=== PATIENT | male | born 1940 | race Caucasian/White ===

== ENCOUNTER 2016-09-24 22:56 | Emergency (ER) | payer MEDICARE, OTHER ==
[2016-09-24] MEDS ORDERED: hydrALAZINE HCL 20 MG/ML 1 ML VIAL IVP STA (23:22)
--- NOTE | 2016-09-24 23:26 | ED ---
General Adult HPI - General Chief complaint: Recheck/Abnormal Lab/Rx Stated complaint: Blood Pressure/tingling in left hand Time Seen by Provider: 09/24/16 23:00 Source: patient, family, RN notes reviewed Mode of arrival: ambulatory Limitations: no limitations - History of Present Illness Initial comments: This is a 75-year-old male presents emergency Department with a past medical history significant for kidney cancer blood pressure. Patient presents today because he felt as though his blood pressure was up and he took his systolic blood pressure was 190. Patient states when his blood pressure up he feels a little tingly sensation in the tips of his fingers and that's what he got today at his took his pressure. Patient denies any chest pain or palpitation. Patient denies any difficulty breathing or shortness of breath per patient denies any headache patient denies any numbness or weakness. Patient denies any blurred vision. Patient states he's had no abdominal pain patient denies nausea vomiting diarrhea. Patient denies any recent fever chills or cough. - Related Data Home Medications Medication Instructions Recorded Confirmed Aspirin EC [Ecotrin Low Dose] 81 mg PO DAILY 06/04/16 09/24/16 Ensure Complete 1 can PO BID PRN 06/04/16 09/24/16 Pravastatin Sodium [Pravachol] 20 mg PO HS 06/04/16 09/24/16 Tamsulosin HCl [Flomax] 0.4 mg PO HS 06/04/16 09/24/16 Lisinopril [Prinivil] 10 mg PO DAILY 09/24/16 09/24/16 Allergies Allergy/AdvReac Type Severity Reaction Status Date / Time atorvastatin calcium Allergy Unknown Verified 09/24/16 23:03 [From Lipitor] clindamycin Allergy Unknown Verified 09/24/16 23:03 Review of Systems ROS Statement: Those systems with pertinent positive or pertinent negative responses have been documented in the HPI. ROS Other: All systems not noted in ROS Statement are negative. Past Medical History Past Medical History: Hypertension Additional Past Medical History / Comment(s): prostate enlarged, left renal cancer History of Any Multi-Drug Resistant Organisms: None Reported Additional Past Surgical History / Comment(s): dental, left nephrectomy 2016 Past Anesthesia/Blood Transfusion Reactions: No Reported Reaction Past Psychological History: No Psychological Hx Reported Smoking Status: Former smoker Past Alcohol Use History: Occasional Past Drug Use History: None Reported - Past Family History Father Family Medical History: Hypertension, Myocardial Infarction ([place]) Mother Family Medical History: Cancer Additional Family Medical History / Comment(s): breast cancer - throat cancer General Exam Limitations: no limitations Course Vital Signs 09/24/16 09/24/16 22:59 23:55 Temperature 98 F Pulse Rate 71 77 Respiratory 20 18 Rate Blood Pressure 191/88 148/82 O2 Sat by Pulse 98 98 Oximetry Medical Decision Making - Medical Decision Making EKG shows a normal sinus rhythm at 69 bpm. It was 180 QRS is 96 QT interval 398 QTC is 426. Patient's EKG shows no ST segment elevation or depression or T wave abnormalities are noted. - Lab Data Result diagrams: 09/24/16 23:27 09/24/16 23:27 Lab Results 09/24/16 09/24/16 09/24/16 Range/Units 23:27 23:27 23:27 WBC 7.7 (3.8-10.6) k/uL RBC 4.44 (4.30-5.90) m/uL Hgb 12.7 L (13.0-17.5) gm/dL Hct 39.6 (39.0-53.0) % MCV 89.1 (80.0-100.0) fL MCH 28.5 (25.0-35.0) pg MCHC 32.0 (31.0-37.0) g/dL RDW 15.1 (11.5-15.5) % Plt Count 259 (150-450) k/uL Neutrophils % 52 % Lymphocytes % 27 % Monocytes % 9 % Eosinophils % 9 % Basophils % 1 % Neutrophils # 4.0 (1.3-7.7) k/uL Lymphocytes # 2.1 (1.0-4.8) k/uL Monocytes # 0.7 (0-1.0) k/uL Eosinophils # 0.7 (0-0.7) k/uL Basophils # 0.1 (0-0.2) k/uL Sodium 142 (137-145) mmol/L Potassium 4.7 (3.5-5.1) mmol/L Chloride 107 (98-107) mmol/L Carbon Dioxide 26 (22-30) mmol/L Anion Gap 9 mmol/L BUN 26 H (9-20) mg/dL Creatinine 2.20 H (0.66-1.25) mg/dL Est GFR (MDRD) Af Amer 36 (>60 ml/min/1.73 sqM) Est GFR (MDRD) Non-Af 29 (>60 ml/min/1.73 sqM) Glucose 96 (74-99) mg/dL Calcium 9.2 (8.4-10.2) mg/dL Magnesium 2.1 (1.6-2.3) mg/dL Total Bilirubin 0.4 (0.2-1.3) mg/dL AST 19 (17-59) U/L ALT 27 (21-72) U/L Alkaline Phosphatase 99 (38-126) U/L Total Creatine Kinase 69 (55-170) U/L CK-MB (CK-2) 0.9 (0.0-2.4) ng/mL CK-MB (CK-2) Rel Index 1.3 Troponin I <0.012 (0.000-0.034) ng/mL Total Protein 6.6 (6.3-8.2) g/dL Albumin 3.8 (3.5-5.0) g/dL Disposition Clinical Impression: Hypertension, Renal insufficiency Disposition: HOME SELF-CARE Condition: Good Instructions: Hypertension (ED) Referrals: Derrell Cordova DO [Primary Care Provider] - 1-2 days Time of Disposition: 00:27
[2016-09-24 23:37] LABS: Basophils # (A) 0.1 k/uL (0-0.2); Basophils % (A) 1 %; CH 29.8; CHCM 33.6; Eosinophils # (A) 0.7 k/uL (0-0.7); Eosinophils % (A) 9 %; HCT 39.6 % (39.0-53.0); HDW 2.42; HGB 12.7 gm/dL (13.0-17.5); Luc # (Auto) 0.15; Luc % (Auto) 2; Lymphocytes # (A) 2.1 k/uL (1.0-4.8); Lymphocytes % (A) 27 %; MCH 28.5 pg (25.0-35.0); MCV 89.1 fL (80.0-100.0); Mean Platelet Volume 8.5; Monocytes # (A) 0.7 k/uL (0-1.0); Monocytes % (A) 9 %; Neutrophils % (A) 52 %; RBC 4.44 m/uL (4.30-5.90); RDW 15.1 % (11.5-15.5); WBC 7.7 k/uL (3.8-10.6); WBC (Perox) 7.71
[2016-09-24 23:50] LABS: Calcium 9.2 mg/dL (8.4-10.2); Magnesium 2.1 mg/dL (1.6-2.3); Potassium 4.7 mmol/L (3.5-5.1); Total Bilirubin 0.4 mg/dL (0.2-1.3); Total Protein 6.6 g/dL (6.3-8.2)
[2016-09-24 23:56] VITALS: RESP 18
[2016-09-25] LABS: Creatine Kinase 69 U/L (55-170)
[2016-09-25 00:14] LABS: Creatine Kinase MB 0.9 ng/mL (0.0-2.4); Troponin I <0.012 ng/mL (0.000-0.034)
[2016-09-25] MEDS ORDERED: hydrALAZINE HCL 20 MG/ML 1 ML VIAL IVP STA (00:29)
[2016-09-25 00:39] VITALS: BP 148/82; PULSE 87; TEMP 98
== END 2016-09-25 00:38 | disposition home or self-care (01) ==
LOC: EC 22:56
DX: I10 Essential (primary) hypertension (principal); N28.9 Disorder of kidney and ureter, unspecified; N40.0 Benign prostatic hyperplasia without lower urinary tract symptoms; Z88.1 Allergy status to other antibiotic agents; Z88.8 Allergy status to other drugs, medicaments and biological substances; Z90.5 Acquired absence of kidney; Z79.82 Long term (current) use of aspirin; Z87.891 Personal history of nicotine dependence; Z85.528 Personal history of other malignant neoplasm of kidney; Z79.899 Other long term (current) drug therapy
CPT/HCPCS: 99283; 96374; 96376; 36415; 93005; 80053; 82550; 82553; 83735; 84484; 85025; J0360 ×2

== ENCOUNTER 2016-10-06 20:26 | Emergency (ER) | payer MEDICARE, OTHER ==
[2016-10-06 20:48] VITALS: TEMP 98.1
[2016-10-06 21:24] LABS: Basophils % (A) 1 %; CH 29.1; CHCM 33.4; Eosinophils # (A) 0.5 k/uL (0-0.7); Eosinophils % (A) 9 %; HCT 40.4 % (39.0-53.0); HDW 2.34; HGB 13.4 gm/dL (13.0-17.5); Luc # (Auto) 0.22; Luc % (Auto) 4; Lymphocytes # (A) 1.2 k/uL (1.0-4.8); Lymphocytes % (A) 23 %; MCHC 33.1 g/dL (31.0-37.0); MCV 87.6 fL (80.0-100.0); Mean Platelet Volume 7.9; Monocytes # (A) 0.7 k/uL (0-1.0); Monocytes % (A) 13 %; Neutrophils # (A) 2.8 k/uL (1.3-7.7); Neutrophils % (A) 51 %; RBC 4.61 m/uL (4.30-5.90); RDW 14.6 % (11.5-15.5); WBC 5.5 k/uL (3.8-10.6); WBC (Perox) 5.84
[2016-10-06 21:33] LABS: Partial Thromboplastin Time 26.1 sec (22.0-30.0); Prothrombin Time 10.2 sec (9.0-12.0)
[2016-10-06 21:35] LABS: Calcium 9.4 mg/dL (8.4-10.2); Magnesium 2.1 mg/dL (1.6-2.3); Potassium 4.5 mmol/L (3.5-5.1); Total Bilirubin 0.4 mg/dL (0.2-1.3); Total Protein 7.1 g/dL (6.3-8.2)
--- NOTE | 2016-10-06 21:39 | XR ---
EXAMINATION TYPE: XR chest 1V portable DATE OF EXAM: 10/06/2016 9:24 PM COMPARISON: June 06, 2016 HISTORY: pain TECHNIQUE: Single frontal view of the chest is obtained. FINDINGS: EKG noted. There is no focal air space opacity, pleural effusion, or pneumothorax seen. T he cardiac silhouette size is within normal limits. The osseous structures are intact. IMPRESSION: No acute process.
[2016-10-06 21:46] LABS: Creatine Kinase 40 U/L (55-170)
[2016-10-06 22:00] LABS: Creatine Kinase MB 0.9 ng/mL (0.0-2.4); Troponin I <0.012 ng/mL (0.000-0.034)
[2016-10-06] MEDS ORDERED: cloNIDine HCL 0.1 MG TAB PO STA (22:04)
[2016-10-06 22:09] VITALS: RESP 16
--- NOTE | 2016-10-06 22:35 | ED ---
General Adult HPI - General Chief complaint: Chest Pain Stated complaint: BP High 187/81 Time Seen by Provider: 10/06/16 21:06 Source: patient, RN notes reviewed Mode of arrival: ambulatory Limitations: no limitations - History of Present Illness Initial comments: This patient is a 75-year-old man who presents because his blood pressure has been higher than usual. The patient states that he has been routinely taking his blood pressure at home, and that this evening the blood pressure was greater than 160. The patient states that over the past few weeks his blood pressure has been trending higher, and his physician had been talking about increasing his lisinopril dosing. The patient is denying any symptoms. He has not been having chest pain. No palpitations, lightheadedness, or syncope, no dyspnea or diaphoresis. The patient is not having nausea, vomiting, abdominal pain or change in bowel movements. Patient has not noted any change in urination. He states that he has been compliant with his lisinopril. Patient denies excessive drinking, he did have one beer with dinner on Monday. -: hour(s) - Related Data Home Medications Medication Instructions Recorded Confirmed Aspirin EC [Ecotrin Low Dose] 81 mg PO HS 06/04/16 10/06/16 Ensure Complete 1 can PO BID PRN 06/04/16 10/06/16 Pravastatin Sodium [Pravachol] 20 mg PO HS 06/04/16 10/06/16 Tamsulosin HCl [Flomax] 0.4 mg PO HS 06/04/16 10/06/16 Lisinopril [Prinivil] 10 mg PO HS 09/24/16 10/06/16 Ascorbic Acid [Vitamin C] 2,000 mg PO HS PRN 10/06/16 10/06/16 Previous Rx's Medication Instructions Recorded Hydrochlorothiazide [Hydrodiuril] 25 mg PO DAILY #14 tab 10/06/16 Allergies Allergy/AdvReac Type Severity Reaction Status Date / Time atorvastatin calcium Allergy Unknown Verified 10/06/16 21:35 [From Lipitor] clindamycin Allergy Unknown Verified 10/06/16 21:35 Review of Systems ROS Statement: Those systems with pertinent positive or pertinent negative responses have been documented in the HPI. ROS Other: All systems not noted in ROS Statement are negative. Constitutional: Denies: fever, chills Eyes: Denies: vision change Respiratory: Denies: cough, dyspnea Cardiovascular: Denies: chest pain, palpitations, dyspnea on exertion, edema, syncope Gastrointestinal: Denies: abdominal pain, nausea, vomiting Genitourinary: Denies: dysuria, hematuria Musculoskeletal: Denies: back pain Skin: Denies: rash Neurological: Denies: headache, weakness, numbness Past Medical History Past Medical History: Hypertension Additional Past Medical History / Comment(s): prostate enlarged, left renal cancer History of Any Multi-Drug Resistant Organisms: None Reported Additional Past Surgical History / Comment(s): dental, left nephrectomy 2016 Past Anesthesia/Blood Transfusion Reactions: No Reported Reaction Past Psychological History: No Psychological Hx Reported Smoking Status: Former smoker Past Alcohol Use History: Occasional Past Drug Use History: Marijuana - Past Family History Father Family Medical History: Hypertension, Myocardial Infarction ([place]) Mother Family Medical History: Cancer Additional Family Medical History / Comment(s): breast cancer - throat cancer General Exam Limitations: no limitations General appearance: alert, in no apparent distress Head exam: Present: atraumatic, normocephalic Eye exam: Present: normal appearance. Absent: scleral icterus, conjunctival injection Neck exam: Present: normal inspection Respiratory exam: Present: normal lung sounds bilaterally. Absent: respiratory distress, wheezes, rales, rhonchi, stridor Cardiovascular Exam: Present: regular rate, normal rhythm, normal heart sounds. Absent: systolic murmur, diastolic murmur, rubs, gallop GI/Abdominal exam: Present: soft. Absent: distended, tenderness, guarding, mass Extremities exam: Present: normal inspection, normal capillary refill. Absent: pedal edema, calf tenderness Back exam: Present: normal inspection. Absent: CVA tenderness (R), CVA tenderness (L) Neurological exam: Present: alert Skin exam: Present: warm, dry, intact, normal color. Absent: rash Course Vital Signs 10/06/16 10/06/16 10/06/16 20:44 21:47 22:38 Temperature 98.1 F Pulse Rate 82 73 67 Respiratory 18 16 16 Rate Blood Pressure 200/88 187/96 177/85 O2 Sat by Pulse 98 100 98 Oximetry EKG Findings - EKG Results: EKG: interpreted by ERMD, WNL, sinus rhythm (Rate 70 bpm), normal axis, normal QRS, normal ST/T, no acute changes - [place], Pacemaker, Normal: Normal tracing: normal tracing Medical Decision Making - Medical Decision Making In further discussions with the patient, he stated that he had previously taken a "water pill", and had excellent relief of blood pressure with this. In light of this, patient was doing prescription for hydrochlorothiazide, he states he may try this one morning, instead of his lisinopril to see if that helps with his blood pressure. He was warned that he would need to have his electrolytes checked if starting water pill. He is going to follow-up. - Lab Data Result diagrams: 10/06/16 21:13 10/06/16 21:13 Lab Results 10/06/16 10/06/16 10/06/16 Range/Units 21:13 21: 21:13 WBC 5.5 (3.8-10.6) k/uL RBC 4.61 (4.30-5.90) m/uL Hgb 13.4 (13.0-17.5) gm/dL Hct 40.4 (39.0-53.0) % MCV 87.6 (80.0-100.0) fL MCH 29.0 (25.0-35.0) pg MCHC 33.1 (31.0-37.0) g/dL RDW 14.6 (11.5-15.5) % Plt Count 272 (150-450) k/uL Neutrophils % 51 % Lymphocytes % 23 % Monocytes % 13 % Eosinophils % 9 % Basophils % 1 % Neutrophils # 2.8 (1.3-7.7) k/uL Lymphocytes # 1.2 (1.0-4.8) k/uL Monocytes # 0.7 (0-1.0) k/uL Eosinophils # 0.5 (0-0.7) k/uL Basophils # 0.0 (0-0.2) k/uL PT (9.0-12.0) sec INR (<1.1) APTT (22.0-30.0) sec Sodium 141 (137-145) mmol/L Potassium 4.5 (3.5-5.1) mmol/L Chloride 106 (98-107) mmol/L Carbon Dioxide 25 (22-30) mmol/L Anion Gap 10 mmol/L BUN 28 H (9-20) mg/dL Creatinine 1.57 H (0.66-1.25) mg/dL Est GFR (MDRD) Af Amer 53 (>60 ml/min/1.73 sqM) Est GFR (MDRD) Non-Af 43 (>60 ml/min/1.73 sqM) Glucose 91 (74-99) mg/dL Calcium 9.4 (8.4-10.2) mg/dL Magnesium 2.1 (1.6-2.3) mg/dL Total Bilirubin 0.4 (0.2-1.3) mg/dL AST 22 (17-59) U/L ALT 32 (21-72) U/L Alkaline Phosphatase 109 (38-126) U/L Total Creatine Kinase 40 L (55-170) U/L CK-MB (CK-2) 0.9 (0.0-2.4) ng/mL CK-MB (CK-2) Rel Index 2.3 Troponin I <0.012 (0.000-0.034) ng/mL Total Protein 7.1 (6.3-8.2) g/dL Albumin 3.9 (3.5-5.0) g/dL 10/06/16 Range/Units 21:13 WBC (3.8-10.6) k/uL RBC (4.30-5.90) m/uL Hgb (13.0-17.5) gm/dL Hct (39.0-53.0) % MCV (80.0-100.0) fL MCH (25.0-35.0) pg MCHC (31.0-37.0) g/dL RDW (11.5-15.5) % Plt Count (150-450) k/uL Neutrophils % % Lymphocytes % % Monocytes % % Eosinophils % % Basophils % % Neutrophils # (1.3-7.7) k/uL Lymphocytes # (1.0-4.8) k/uL Monocytes # (0-1.0) k/uL Eosinophils # (0-0.7) k/uL Basophils # (0-0.2) k/uL PT 10.2 (9.0-12.0) sec INR 1.0 (<1.1) APTT 26.1 (22.0-30.0) sec Sodium (137-145) mmol/L Potassium (3.5-5.1) mmol/L Chloride (98-107) mmol/L Carbon Dioxide (22-30) mmol/L Anion Gap mmol/L BUN (9-20) mg/dL Creatinine (0.66-1.25) mg/dL Est GFR (MDRD) Af Amer (>60 ml/min/1.73 sqM) Est GFR (MDRD) Non-Af (>60 ml/min/1.73 sqM) Glucose (74-99) mg/dL Calcium (8.4-10.2) mg/dL Magnesium (1.6-2.3) mg/dL Total Bilirubin (0.2-1.3) mg/dL AST (17-59) U/L ALT (21-72) U/L Alkaline Phosphatase (38-126) U/L Total Creatine Kinase (55-170) U/L CK-MB (CK-2) (0.0-2.4) ng/mL CK-MB (CK-2) Rel Index Troponin I (0.000-0.034) ng/mL Total Protein (6.3-8.2) g/dL Albumin (3.5-5.0) g/dL Disposition Clinical Impression: Hypertension Disposition: HOME SELF-CARE Condition: Fair Instructions: Hypertension (ED) Prescriptions: Hydrochlorothiazide [Hydrodiuril] 25 mg PO DAILY #14 tab Referrals: Derrell Cordova DO [Primary Care Provider] - 1-2 days
[2016-10-06 23:45] VITALS: BP 157/84; PULSE 71
== END 2016-10-06 23:45 | disposition home or self-care (01) ==
LOC: EC 20:26
DX: I10 Essential (primary) hypertension (principal); N40.0 Benign prostatic hyperplasia without lower urinary tract symptoms; Z85.528 Personal history of other malignant neoplasm of kidney; Z79.82 Long term (current) use of aspirin; Z79.899 Other long term (current) drug therapy; Z88.1 Allergy status to other antibiotic agents; Z88.8 Allergy status to other drugs, medicaments and biological substances
CPT/HCPCS: 36415; 71010; 80053; 82550; 82553; 83735; 84484; 85025; 85610; 85730; 93005; 99285

== ENCOUNTER 2016-10-08 10:06 | Emergency (ER) | payer MEDICARE, OTHER ==
[2016-10-08] MEDS ORDERED: ACETAMINOPHEN TAB 325 MG TAB PO STA (13:17)
--- NOTE | 2016-10-08 13:20 | ED ---
Recheck HPI - General Chief Complaint: Recheck/Abnormal Lab/Rx Stated Complaint: HIGH BLOOD PRESSURE Time Seen by Provider: 10/08/16 12:36 Source: patient, RN notes reviewed Mode of arrival: wheelchair Limitations: no limitations - History of Present Illness Initial Comments: Patient is a 76-year-old male presents emergency room for evaluation of high blood pressure. Patient states he was here on Monday for high blood pressure. Patient states they doubled his lisinopril and sent him home on hydrochlorothiazide. Patient states his blood pressure has been normal this past week. Patient states this morning he took his blood pressure and it was 170/79. Patient states this concerned him so he decided to come and be evaluated. Patient also complaining of cough and congestion. Patient states he 's had cough and congestion for the past 4 days. Patient denies receiving his influenza vaccine this year. Patient states had a productive cough and nasal congestion. Patient states been taking Tylenol for his fevers. Patient does have a fever on arrival today of 100.8F. Patient denies any nausea or vomiting. Patient denies chest pain or shortness of breath. Patient denies abdominal pain. Patient denies ear pain or throat pain. - Related Data Home Medications Medication Instructions Recorded Confirmed Aspirin EC [Ecotrin Low Dose] 81 mg PO HS 06/04/16 10/08/16 Ensure Complete 1 can PO BID PRN 06/04/16 10/08/16 Pravastatin Sodium [Pravachol] 20 mg PO HS 06/04/16 10/08/16 Tamsulosin HCl [Flomax] 0.4 mg PO HS 06/04/16 10/08/16 Lisinopril [Prinivil] 20 mg PO HS 09/24/16 10/08/16 Previous Rx's Medication Instructions Recorded Hydrochlorothiazide [Hydrodiuril] 25 mg PO DAILY #14 tab 10/06/16 Allergies Allergy/AdvReac Type Severity Reaction Status Date / Time atorvastatin calcium Allergy Unknown Verified 10/08/16 13:40 [From Lipitor] clindamycin Allergy Unknown Verified 10/08/16 13:40 Review of Systems ROS Statement: Those systems with pertinent positive or pertinent negative responses have been documented in the HPI. ROS Other: All systems not noted in ROS Statement are negative. Past Medical History Past Medical History: Hypertension Additional Past Medical History / Comment(s): prostate enlarged, left renal cancer History of Any Multi-Drug Resistant Organisms: None Reported Additional Past Surgical History / Comment(s): dental, left nephrectomy 2016 Past Anesthesia/Blood Transfusion Reactions: No Reported Reaction Past Psychological History: No Psychological Hx Reported Smoking Status: Former smoker Past Alcohol Use History: Occasional Past Drug Use History: Marijuana - Past Family History Father Family Medical History: Hypertension, Myocardial Infarction ([place]) Mother Family Medical History: Cancer Additional Family Medical History / Comment(s): breast cancer - throat cancer General Exam - General Exam Comments Initial Comments: Sitting in exam room in no acute distress. Limitations: no limitations General appearance: alert, in no apparent distress Head exam: Present: atraumatic, normocephalic, normal inspection Eye exam: Present: normal appearance ENT exam: Present: normal exam, normal oropharynx, mucous membranes moist, TM's normal bilaterally, normal external ear exam Neck exam: Present: normal inspection, full ROM. Absent: tenderness, lymphadenopathy Respiratory exam: Present: normal lung sounds bilaterally. Absent: respiratory distress Cardiovascular Exam: Present: regular rate, normal rhythm, normal heart sounds GI/Abdominal exam: Present: soft, normal bowel sounds. Absent: distended, tenderness, guarding, rebound, rigid Extremities exam: Present: normal inspection Back exam: Present: normal inspection Neurological exam: Present: alert, oriented X3, CN II-XII intact, normal gait Psychiatric exam: Present: normal affect, normal mood Skin exam: Present: warm, dry, intact, normal color. Absent: rash Course Vital Signs 10/08/16 10/08/16 10:55 14:51 Temperature 100.8 F H 97.8 F Pulse Rate 89 80 Respiratory 20 16 Rate Blood Pressure 133/74 133/77 O2 Sat by Pulse 96 95 Oximetry Medical Decision Making - Medical Decision Making Patient is a 76-year-old male presents emergency room for evaluation of blood pressure. Patient also complaining of cough and congestion 4 days. Chest x- ray shows no acute findings. Influenza negative. Patient's blood pressure within normal limits. Advised patient to continue taking medications as prescribed and to follow-up with his primary care provider on Monday. Patient states he understands everything that was discussed with him. Return parameters discussed. Case discussed with Dr. Martínez. - Lab Data Lab Results 10/08/16 Range/Units 13:25 Influenza Type A RNA Not Detected (Not Detectd) Influenza Type B (PCR) Not Detected (Not Detectd) - Radiology Data Radiology results: report reviewed, image reviewed Disposition Clinical Impression: Blood pressure check, Upper respiratory infection Disposition: HOME SELF-CARE Condition: Good Instructions: Upper Respiratory Infection (ED) Additional Instructions: Continue with at home medications. Drink plenty of fluids. Take Tylenol every 4-6 hours for fever/discomfort. Please follow up with primary care provider on Monday for reevaluation. If any new symptom arises or symptoms worsen, return to ER as soon as possible. Referrals: Derrell Cordova DO [Primary Care Provider] - 1-2 days Time of Disposition: 14:49
--- NOTE | 2016-10-08 14:06 | XR ---
EXAMINATION TYPE: XR chest 2V DATE OF EXAM: 10/08/2016 1:30 PM COMPARISON: 10/06/2016 INDICATION: Cough and congestion TECHNIQUE: Frontal and lateral views of the chest are obtained. FINDINGS: The heart size is normal. The pulmonary vasculature is normal. The lungs are clear. IMPRESSION: 1. No acute pulmonary process.
[2016-10-08 14:53] VITALS: BP 133/77; PULSE 80; RESP 16; TEMP 97.8
== END 2016-10-08 14:59 | disposition home or self-care (01) ==
LOC: EC 10:06
DX: Z01.30 Encounter for examination of blood pressure without abnormal findings (principal); J06.9 Acute upper respiratory infection, unspecified; N40.0 Benign prostatic hyperplasia without lower urinary tract symptoms; I10 Essential (primary) hypertension; Z79.82 Long term (current) use of aspirin; Z79.899 Other long term (current) drug therapy; Z88.1 Allergy status to other antibiotic agents; Z88.8 Allergy status to other drugs, medicaments and biological substances; Z85.528 Personal history of other malignant neoplasm of kidney; Z87.891 Personal history of nicotine dependence
CPT/HCPCS: 71020; 87502; 93005; 99284

== ENCOUNTER 2016-10-10 10:37 | Observation (INO) | payer MEDICARE, OTHER ==
[2016-10-10] MEDS ORDERED: SODIUM CHLORIDE 0.9% 1,000 ML IV STA (10:55)
[2016-10-10] MEDS ORDERED: SODIUM CHLORIDE 0.9% 500 ML IV STA (10:55)
--- NOTE | 2016-10-10 10:56 | ED ---
General Adult HPI - General Chief complaint: Chest Pain Stated complaint: HTN Time Seen by Provider: 10/10/16 10:44 Source: patient, RN notes reviewed, old records reviewed Mode of arrival: wheelchair Limitations: no limitations - History of Present Illness Initial comments: This is a 76-year-old male ER for evaluation of elevated blood pressure, paresthesias left arm numbness and tingling and overall not feeling well shortness of breath. Patient does have history of high blood pressure, and has been in the ER twice in the last 4 days for evaluation of similar symptoms. Patient states he has had cough congestion and shortness of breath no help, feeling weak and dizzy with tingling. Numbness in his left arm no exacerbating symptoms, symptoms have been pretty consistent but not getting any better. - Related Data Home Medications Medication Instructions Recorded Confirmed Aspirin EC [Ecotrin Low Dose] 81 mg PO HS 06/04/16 10/10/16 Ensure Complete 1 can PO BID PRN 06/04/16 10/10/16 Pravastatin Sodium [Pravachol] 20 mg PO HS 06/04/16 10/10/16 Tamsulosin HCl [Flomax] 0.4 mg PO HS 06/04/16 10/10/16 Lisinopril [Prinivil] 20 mg PO HS 09/24/16 10/10/16 HYDROcodone/APAP 10-325MG [[place] 1 tab PO Q6H PRN 10/10/16 10/10/16 10-325] Hydrochlorothiazide [Hydrodiuril] 25 mg PO HS 10/10/16 10/10/16 Allergies Allergy/AdvReac Type Severity Reaction Status Date / Time atorvastatin calcium Allergy Unknown Verified 10/10/16 11:08 [From Lipitor] clindamycin Allergy Unknown Verified 10/10/16 11:08 Review of Systems ROS Statement: Those systems with pertinent positive or pertinent negative responses have been documented in the HPI. ROS Other: All systems not noted in ROS Statement are negative. Past Medical History Past Medical History: Cancer, Hypertension Additional Past Medical History / Comment(s): prostate enlarged, left renal cancer History of Any Multi-Drug Resistant Organisms: None Reported Additional Past Surgical History / Comment(s): dental, left nephrectomy 2016 Past Anesthesia/Blood Transfusion Reactions: No Reported Reaction Past Psychological History: No Psychological Hx Reported Smoking Status: Former smoker Past Alcohol Use History: Occasional Past Drug Use History: Marijuana - Past Family History Father Family Medical History: Hypertension, Myocardial Infarction ([place]) Mother Family Medical History: Cancer Additional Family Medical History / Comment(s): breast cancer - throat cancer General Exam Limitations: no limitations General appearance: alert, in no apparent distress, anxious Head exam: Present: atraumatic, normocephalic, normal inspection Eye exam: Present: normal appearance, PERRL, EOMI. Absent: scleral icterus, conjunctival injection, periorbital swelling ENT exam: Present: normal exam, mucous membranes moist Neck exam: Present: normal inspection. Absent: tenderness, meningismus, lymphadenopathy Respiratory exam: Present: normal lung sounds bilaterally. Absent: respiratory distress, wheezes, rales, rhonchi, stridor Cardiovascular Exam: Present: regular rate, normal rhythm, normal heart sounds. Absent: systolic murmur, diastolic murmur, rubs, gallop, clicks GI/Abdominal exam: Present: soft, normal bowel sounds. Absent: distended, tenderness, guarding, rebound, rigid Extremities exam: Present: normal inspection, full ROM, normal capillary refill. Absent: tenderness, pedal edema, joint swelling, calf tenderness Back exam: Present: normal inspection Neurological exam: Present: alert, oriented X3, CN II-XII intact Psychiatric exam: Present: normal affect, normal mood Skin exam: Present: warm, dry, intact, normal color. Absent: rash Course Vital Signs 10/10/16 10/10/16 10:50 11:02 Temperature 97.6 F Pulse Rate 71 Respiratory 16 18 Rate Blood Pressure 129/83 O2 Sat by Pulse 98 Oximetry - Reevaluation(s) Reevaluation #1: 10/10/16 12:04 Medical records including prior ER visits are reviewed EKG Findings - EKG Comments: EKG Findings:: EKG shows normal sinus rhythm rate of 71, MD 162, QRS 94, QTC 406 Medical Decision Making - Medical Decision Making 76-year-old ER for evaluation of chest pain dizziness lightheadedness left arm weakness, history of high blood pressure and heart disease. Patient will be admitted for cardiac observation, initial EKG shows no ST elevation troponin laboratory is normal - Lab Data Result diagrams: 10/10/16 11:18 Lab Results 10/10/16 10/10/16 10/10/16 Range/Units 11:18 11:18 11:18 PT 10.4 (9.0-12.0) sec INR 1.0 (<1.1) APTT 25.8 (22.0-30.0) sec Sodium 137 (137-145) mmol/L Potassium 4.2 (3.5-5.1) mmol/L Chloride 102 (98-107) mmol/L Carbon Dioxide 23 (22-30) mmol/L Anion Gap 12 mmol/L BUN 22 H (9-20) mg/dL Creatinine 1.34 H (0.66-1.25) mg/dL Est GFR (MDRD) Af Amer >60 (>60 ml/min/1.73 sqM) Est GFR (MDRD) Non-Af 52 (>60 ml/min/1.73 sqM) Glucose 111 H (74-99) mg/dL Calcium 9.5 (8.4-10.2) mg/dL Phosphorus 3.8 (2.5-4.5) mg/dL Magnesium 1.8 (1.6-2.3) mg/dL Total Bilirubin 0.4 (0.2-1.3) mg/dL AST 22 (17-59) U/L ALT 30 (21-72) U/L Alkaline Phosphatase 110 (38-126) U/L Total Creatine Kinase 34 L (55-170) U/L Total Protein 7.5 (6.3-8.2) g/dL Albumin 4.0 (3.5-5.0) g/dL - Radiology Data Radiology results: report reviewed (Chest x-ray 2 views negative for acute disease), image reviewed Critical Care Time Critical Care Time: Yes Total Critical Care Time: 31 Disposition Clinical Impression: Chest pain Disposition: ADMITTED IP TO THIS [facility] Condition: Undetermined
[2016-10-10] MEDS ORDERED: HEPARIN SODIUM,PORCINE 5,000 UNIT/ML 1 ML VIAL IV ONE (11:31)
[2016-10-10] MEDS ORDERED: HEPARIN SODIUM,PORCINE 5,000 UNIT/ML 1 ML VIAL IV PRN (11:31)
[2016-10-10] MEDS ORDERED: NITROGLYCERIN SL TABS 0.4 MG TAB SUBLINGUAL PRN (11:31)
[2016-10-10] MEDS ORDERED: ASPIRIN 81 MG CHEW PO STA (11:31)
--- NOTE | 2016-10-10 11:47 | XR ---
EXAMINATION TYPE: XR chest 2V DATE OF EXAM: 10/10/2016 11:39 AM COMPARISON: 10/08/2016 HISTORY: Shortness of breath TECHNIQUE: Frontal and lateral views of the chest are obtained. FINDINGS: Scattered senescent parenchymal changes noted. Hyperinflation compatible with COPD. No evidence for infiltrate. No evidence for atelectasis. Heart size is stable. Mediastinal structures are stable and grossly unremarkable. No evidence for hilar prominence. Degenerative changes dorsal spine. IMPRESSION: 1. No evidence for acute pulmonary disease.
[2016-10-10 11:49] LABS: Partial Thromboplastin Time 25.8 sec (22.0-30.0); Prothrombin Time 10.4 sec (9.0-12.0)
[2016-10-10 11:53] LABS: ALT 30 U/L (21-72); AST 22 U/L (17-59); Alkaline Phosphatase 110 U/L (38-126); Anion Gap 12 mmol/L; Blood Urea Nitrogen 22 mg/dL (9-20); Calcium 9.5 mg/dL (8.4-10.2); Carbon Dioxide 23 mmol/L (22-30); Chloride 102 mmol/L (98-107); Creatine Kinase 34 U/L (55-170); Glucose 111 mg/dL (74-99); Magnesium 1.8 mg/dL (1.6-2.3); Non-African American GFR(MDRD) 52 (>60 ml/min/1.73 sqM); Phosphorous 3.8 mg/dL (2.5-4.5); Potassium 4.2 mmol/L (3.5-5.1); Sodium 137 mmol/L (137-145); Total Bilirubin 0.4 mg/dL (0.2-1.3); Total Protein 7.5 g/dL (6.3-8.2)
[2016-10-10 11:56] LABS: Basophils % (A) 1 %; CH 29.3; CHCM 34.2; Eosinophils # (A) 0.2 k/uL (0-0.7); Eosinophils % (A) 6 %; HCT 44.4 % (39.0-53.0); HDW 2.41; HGB 15.1 gm/dL (13.0-17.5); Luc # (Auto) 0.17; Luc % (Auto) 4; Lymphocytes # (A) 1.3 k/uL (1.0-4.8); Lymphocytes % (A) 32 %; MCH 29.3 pg (25.0-35.0); MCV 86.1 fL (80.0-100.0); Monocytes # (A) 0.3 k/uL (0-1.0); Monocytes % (A) 8 %; Neutrophils # (A) 2.1 k/uL (1.3-7.7); Neutrophils % (A) 51 %; RBC 5.16 m/uL (4.30-5.90); RDW 14.4 % (11.5-15.5); WBC 4.2 k/uL (3.8-10.6); WBC (Perox) 4.31
[2016-10-10 12:07] LABS: Creatine Kinase MB 0.6 ng/mL (0.0-2.4); Troponin I <0.012 ng/mL (0.000-0.034)
[2016-10-10] MEDS: HEPARIN SODIUM,PORCINE/D5W PMX 25,000 UNIT in DEXTROSE/WATER 1 500ML.BAG IV SCH (13:34)
[2016-10-10 16:10] LABS: Appearance,Urine Clear (Clear); Bilirubin,Urine Negative (Negative); Glucose,Urine (UA) Negative (Negative); Ketones,Urine Negative (Negative); Leukocyte Esterase,Urine Negative (Negative); Nitrite,Urine Negative (Negative); Protein,Urine Negative (Negative); Specific Gravity,Urine 1.012 (1.001-1.035); UA Billing (MACRO vs. MICRO) CHEM; Urobilinogen,Urine <2.0 mg/dL (<2.0)
[2016-10-10 18:24] LABS: Creatine Kinase 31 U/L (55-170)
[2016-10-10 18:35] LABS: Creatine Kinase MB 0.6 ng/mL (0.0-2.4); Troponin I <0.012 ng/mL (0.000-0.034)
[2016-10-10] MEDS ORDERED: ENSURE COMPLETE PO PRN (21:51)
[2016-10-10] MEDS: SODIUM CHLORIDE 0.9% 1,000 ML IV SCH ×2 (22:11→22:15)
[2016-10-10] MEDS: TAMSULOSIN 0.4 MG CAP.ER.24H PO SCH (22:20)
[2016-10-10] MEDS: PRAVASTATIN SODIUM 20 MG TAB PO SCH (22:20)
[2016-10-10] MEDS: LISINOPRIL 20 MG TAB PO SCH (22:20)
[2016-10-10] MEDS: HYDROCHLOROTHIAZIDE 25 MG TAB PO SCH (22:20)
[2016-10-10] MEDS: METOPROLOL TARTRATE 12.5 MG TAB PO SCH (23:34)
[2016-10-10] MEDS: ASPIRIN 81 MG CHEW PO SCH (23:34)
[2016-10-11 00:15] LABS: Creatine Kinase 38 U/L (55-170)
[2016-10-11] MEDS: hydrALAZINE HCL 10 MG TAB PO PRN ×2 (00:24→10:24)
[2016-10-11 00:29] LABS: Creatine Kinase MB 0.6 ng/mL (0.0-2.4); Troponin I <0.012 ng/mL (0.000-0.034)
[2016-10-11 06:04] LABS: Basophils # (A) 0.1 k/uL (0-0.2); Basophils % (A) 1 %; CH 29.1; CHCM 33.7; Eosinophils # (A) 0.3 k/uL (0-0.7); Eosinophils % (A) 5 %; HCT 40.9 % (39.0-53.0); HDW 2.45; HGB 13.3 gm/dL (13.0-17.5); Luc # (Auto) 0.19; Luc % (Auto) 3; Lymphocytes # (A) 2.7 k/uL (1.0-4.8); Lymphocytes % (A) 45 %; MCH 28.3 pg (25.0-35.0); MCHC 32.5 g/dL (31.0-37.0); MCV 86.9 fL (80.0-100.0); Mean Platelet Volume 8.5; Monocytes # (A) 0.5 k/uL (0-1.0); Monocytes % (A) 9 %; Neutrophils # (A) 2.1 k/uL (1.3-7.7); Neutrophils % (A) 36 %; RBC 4.71 m/uL (4.30-5.90); RDW 14.4 % (11.5-15.5); WBC 5.9 k/uL (3.8-10.6); WBC (Perox) 5.54
[2016-10-11 06:23] LABS: Cholesterol 105 mg/dL (<200); HDL Cholesterol 34 mg/dL (40-60); Triglycerides 87 mg/dL (<150)
[2016-10-11] MEDS: SODIUM CHLORIDE 0.9% 1,000 ML IV SCH ×2 (06:55→21:15)
[2016-10-11] MEDS ORDERED: ASPIRIN 325 MG TAB PO SCH (09:00)
[2016-10-11] MEDS: LISINOPRIL 20 MG TAB PO SCH ×2 (10:07→21:16)
[2016-10-11] MEDS: METOPROLOL TARTRATE 12.5 MG TAB PO SCH ×2 (10:07→21:16)
--- NOTE | 2016-10-11 16:55 | HP ---
DATE OF ADMISSION: CHIEF COMPLAINT: Chest pain. HISTORY OF PRESENT ILLNESS: Mr. 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 He came to the hospital with complaints of fluctuating blood pressure and also chest pain along with cough and numbness and tingling feeling on the left arm as well as shortness of breath. Patient has been in the ER twice in the last 4 days for evaluation of similar symptoms. Patient had a cough, congestion and shortness of breath, feeling very weak and dizzy. Patient usually follows with [facility] in [place]. Patient was having left arm numbness. No exacerbating or relieving symptoms. Symptoms are coming on and off with fluctuating blood pressure, which made him come to the hospital. Otherwise, patient denied any fever or chills. Patient does have recent upper respiratory infection. No recent travel or sick contacts at home. No dizziness or palpitations. Chest pain worsens with cough. REVIEW OF SYSTEMS: CONSTITUTIONAL: No fever. No chills. Patient does have generalized weakness and malaise. RESPIRATORY: Patient does have a cough without sputum production and shortness of breath. CARDIOVASCULAR: No chest pain. Patient does have shortness of breath. Chest pain with cough, worsening. ABDOMEN: No nausea, vomiting, abdominal pain. GENITOURINARY: Negative. ENDOCRINE: Negative. PSYCHIATRY: Negative. SKIN: Negative. MUSCULOSKELETAL: Negative. All of 14-point review of systems negative except as above. Past medical history includes: 1. Left renal cancer, status post nephrectomy March of 2016. 2. Hypertension. 3. BPH. PAST SURGICAL HISTORY: 1. Left nephrectomy in March of 2016. 2. Dental surgery. No psychosocial history. SOCIAL HISTORY: Patient is a former smoker. Currently not smoking. Occasional alcohol use. Patient does use marijuana. FAMILY HISTORY: Father had hypertension and [place]. Mother had breast cancer, throat cancer. ALLERGIES include: 1. ATORVASTATIN. 2. CLINDAMYCIN. Home medications include: 1. Aspirin. 2. Ensure. 3. Pravastatin. 4. Flomax. 5. Lisinopril. 6. Prosperity 10. 7. Hydrochlorothiazide. PHYSICAL EXAMINATION: Lhaawvm-pnsw-pims-old male lying in bed comfortably. Awake, alert, oriented x3. No apparent distress. VITALS: Blood pressure is 125/71. Pulse is 63, respiration 18, temperature afebrile, pulse ox 97% on 2 L nasal cannula. HEENT: Atraumatic, normocephalic. Neck is supple. No JVD. CVS EXAM: S1, S2 heard. No murmurs. No gallop. No rub. LUNGS: Bilateral air entry is present. No wheezing. No crackles. Non-labored breathing. ABDOMEN: Soft, nontender. Bowel sounds are present. WEIGHTS AND MEASURES SEALER: Awake, alert, oriented x3. No focal deficit. EXTREMITIES: No edema. Pulses palpable bilaterally. No clubbing or cyanosis. PSYCHIATRIC: Cooperative. LABORATORY DATA: WBC 5.9, hemoglobin 13.3, platelets 205. Sodium 137, potassium 4.2. Chloride 102. Bicarb is 23. BUN 22, creatinine 1.34. Troponin x3 negative. TSH 2.560. UA negative. Chest x-ray showed no acute cardiopulmonary process. EKG showed normal sinus rhythm. IMPRESSION: 1. Chest pain, possibly musculoskeletal in origin, worsening with cough. 2. Left arm numbness and tingling. 3. Fluctuating blood pressure. 4. History of left renal carcinoma, status post nephrectomy and sternal and lung nodules, as per the patient. 5. Benign prostatic hypertrophy. 6. Hypertension. 7. History of smoking. DISCUSSION AND PLAN: Wvfhpgp-uvod-bfqq-old male with known history of renal cell carcinoma, admitted to the hospital with chest pain which is most likely musculoskeletal in origin along with left arm numbness. Will continue to rule out acute coronary syndrome. Serial EKGs and troponins are negative. Will continue the pain management with Prosperity. Cardiology has been consulted for evaluation. Will continue the telemetry monitoring. Further recommendations based on the clinical course. MTDD
[2016-10-11] MEDS: HYDROcodone/APAP 10-325MG 1 EACH TAB PO PRN (18:05)
[2016-10-11] MEDS: HEPARIN SODIUM,PORCINE/D5W PMX 25,000 UNIT in DEXTROSE/WATER 1 500ML.BAG IV SCH (18:42)
[2016-10-11] MEDS: HYDROCHLOROTHIAZIDE 25 MG TAB PO SCH (21:16)
[2016-10-11] MEDS: TAMSULOSIN 0.4 MG CAP.ER.24H PO SCH (21:16)
[2016-10-11] MEDS: PRAVASTATIN SODIUM 20 MG TAB PO SCH (21:16)
[2016-10-11] MEDS: ASPIRIN 81 MG CHEW PO SCH (21:16)
[2016-10-12] MEDS: HYDROcodone/APAP 10-325MG 1 EACH TAB PO PRN (02:50)
[2016-10-12] MEDS: SODIUM CHLORIDE 0.9% 1,000 ML IV SCH ×2 (06:01→16:52)
[2016-10-12 07:11] LABS: Basophils # (A) 0.1 k/uL (0-0.2); Basophils % (A) 1 %; CH 28.9; CHCM 33.2; Eosinophils # (A) 0.3 k/uL (0-0.7); Eosinophils % (A) 6 %; HCT 41.5 % (39.0-53.0); HGB 13.7 gm/dL (13.0-17.5); Luc # (Auto) 0.25; Luc % (Auto) 4; Lymphocytes # (A) 2.6 k/uL (1.0-4.8); Lymphocytes % (A) 43 %; MCH 28.8 pg (25.0-35.0); MCV 87.4 fL (80.0-100.0); Mean Platelet Volume 7.6; Monocytes # (A) 0.4 k/uL (0-1.0); Monocytes % (A) 7 %; Neutrophils # (A) 2.4 k/uL (1.3-7.7); Neutrophils % (A) 39 %; RBC 4.75 m/uL (4.30-5.90); RDW 14.3 % (11.5-15.5)
[2016-10-12 07:54] VITALS: RESP 18
--- NOTE | 2016-10-12 11:02 | CONS ---
DATE OF CONSULTATION: Kurtis Mckeon has been in the hospital several times. He comes in once again with fluctuating blood pressures as well as atypical chest discomfort and a feeling of numbness and tingling in the left arm and some shortness of breath. He has been in the ER at least twice before and his antihypertensive therapy has suddenly been increased. At this time he is resting comfortably in bed. He has no chest discomfort. REVIEW OF SYSTEMS: No fever, chills, or rigors. He does have a little cough. No expectoration. He complains of shortness of breath, but he does not appear to be short of breath. No nausea, vomiting, or diarrhea. No hematuria or dysuria. No strokes or seizures. No skin lesions or musculoskeletal complaints. Past medical history of renal cell cancer, status post nephrectomy in March 2016, hypertension, BPH. PAST SURGICAL HISTORY: Left nephrectomy and dental surgery. PSYCHOSOCIAL HISTORY: Noncontributory. SOCIAL HISTORY: Former smoker. Occasional marijuana use. Family history of hypertension, [place]. Allergies to ATORVASTATIN, CLINDAMYCIN. HOME MEDICATIONS: I am not clear on the dose of the medications. This patient has had multiple admissions and a lot of changes have been made. According to the ER, he was on 20 mg of lisinopril along with hydrochlorothiazide. On examination, he is lying comfortably in bed. His blood pressure is 138/80 mmHg, 150/84 mmHg, respirations are normal. Head and neck examination is normal. Heart sounds are normal. Lungs are clear to auscultation. Extremities are warm. No edema. IMPRESSION: 1. Hypertension with elevated blood pressure readings, agree with increasing lisinopril. 2. History of left nephrectomy. Suggest 2-D echo and Doppler study to evaluate the IVC and the pericardium. Continue antihypertensive therapy. [facility].
--- NOTE | 2016-10-12 11:44 | ECHOF ---
Referral Reason:cp, renal carcinoma MEASUREMENTS -------- HEIGHT: 170.2 cm WEIGHT: 58.5 kg BP: 150/84 RVIDd: 2.5 cm (< 3.3) IVSd: 1.0 cm (0.6 - 1.1) LVIDd: 3.5 cm (3.9 - 5.3) LVPWd: 1.0 cm (0.6 - 1.1) IVSs: 2.0 cm LVIDs: 2.3 cm LVPWs: 1.4 cm LA Diam: 2.9 cm (2.7 - 3.8) Ao Diam: 3.3 cm (2.0 - 3.7) AV Cusp: 2.3 cm (1.5 - 2.6) LA Diam: 3.4 cm (2.7 - 3.8) MV EXCURSION: 7.809 mm (> 18.000) MV EF SLOPE: 34 mm/s (70 - 150) EPSS: 0.9 cm MV E Jian: 0.47 m/s MV DecT: 321 ms MV A Jian: 0.83 m/s MV E/A Ratio: 0.57 AR PHT: 1021 ms FINDINGS -------- Sinus rhythm. This was a technically good study. Left ventricular wall thickness is normal. Overall left ventricular systolic function is normal with, an EF between 55 - 60 %. The right ventricle is normal in size. The left atrial size is normal. The right atrium is normal in size. Aortic valve is trileaflet and is mildly thickened. There is mild aortic regurgitation. The mitral valve leaflets are mildly thickened. Mild mitral annular calcification present. There is trace mitral regurgitation. Trace tricuspid regurgitation present. Right ventricular systolic pressure is normal at < 35 mmHg. Trace/mild (physiologic) pulmonic regurgitation. Normal inferior vena cava with normal inspiratory collapse consistent with estimated right atrial pressure of 5 mmHg. There is no pericardial effusion. CONCLUSIONS -------- 1. Sinus rhythm. 2. The mitral valve leaflets are mildly thickened. 3. Mild mitral annular calcification present. 4. There is trace mitral regurgitation. 5. Right ventricular systolic pressure is normal at < 35 mmHg. 6. Trace/mild (physiologic) pulmonic regurgitation. 7. There is no pericardial effusion. 8. This was a technically good study. 9. Left ventricular wall thickness is normal. 10. Overall left ventricular systolic function is normal with, an EF between 55 - 60 %. 11. The right ventricle is normal in size. 12. The left atrial size is normal. 13. The right atrium is normal in size. 14. Aortic valve is trileaflet and is mildly thickened. 15. There is mild aortic regurgitation. SMART GRID ENGINEER: Bret Gonzalez RDCS
[2016-10-12] MEDS: LISINOPRIL 20 MG TAB PO SCH (11:59)
[2016-10-12 15:52] VITALS: BP 143/85; PULSE 75; TEMP 98.9
[2016-10-12] MEDS: METOPROLOL TARTRATE 12.5 MG TAB PO SCH (16:58)
--- NOTE | 2016-10-12 19:54 | P.DS ---
Providers Date of admission: 10/10/16 11:31 Expected date of discharge: 10/12/16 Attending physician: Valorie Terry Primary care physician: Derrell Cordova [facility] Course: This is a 76-year-old gentleman who is been to the hospital multiple times in the recent 5 days due to elevated blood pressures. Patient apparently has been having anxiety in regards to his blood pressure ablation. He actually attributes it to his recent use of having a spot on his sternum from an unknown etiology. Patient does have a history of cancer and has kidney underwent a nephrectomy. A repeat scan apparently showed some spots that were to be biopsied 2 weeks ago at [facility]. However patient was sick and hence did not go into the facility for biopsy. Patient comes in this time around his blood pressure was elevated was noted to have symptoms of headaches and some tingliness in his left arm. EKG did not reveal any ST-T wave changes. Patient's lisinopril was increased to 20 twice a day and was continued on HCl 25 mg by mouth daily. Patient apparently was taken of all his blood pressure medications at the time of nephrectomy. Physical exam Gen. appearance oriented 3 in no distress Neck is supple no JVD Lungs good air entry clear to auscultation no rhonchi or wheezing Heart S1-S2 heard regular rate and rhythm no murmurs appreciated Abdomen is soft nontender no organomegaly bowel sounds are intact Neurologically cranial nerves II-12 grossly intact no focal motor or sensory deficits noted Skin no abnormalities appreciated Discharge diagnosis Accelerated hypertension Renal cancer Dyslipidemia Metastatic lesions on his sternum Atypical chest pain secondary to likely metastatic lesions 2-3 more blood pressure readings should be done I did discuss that patient's blood pressure goal should not be normal range. Patient did have a blood pressure or 200 and hence today's range between 140 and 160 is appropriate patient should have a close follow-up with Dr. Cordova within the next week. Patient should follow up with the [place] system in order to undergo investigations to evaluate the lesion on the sternum. Discussed the above suggested issues with the patient and he is agreeable to go home. He does state there is some underlying anxiety as well. Patient Condition at Discharge: Undetermined Plan - Discharge Summary New Discharge Prescriptions: Lisinopril [Zestril] 20 mg PO BID #60 tab Discharge Medication List Aspirin EC [Ecotrin Low Dose] 81 mg PO HS 06/04/16 [History] Ensure Complete 1 can PO BID PRN 06/04/16 [History] Pravastatin Sodium [Pravachol] 20 mg PO HS 06/04/16 [History] Tamsulosin HCl [Flomax] 0.4 mg PO HS 06/04/16 [History] HYDROcodone/APAP 10-325MG [[place] 10-325] 1 tab PO Q6H PRN 10/10/16 [History] Hydrochlorothiazide [Hydrodiuril] 25 mg PO HS 10/10/16 [History] Lisinopril [Zestril] 20 mg PO BID #60 tab 10/12/16 [Rx] Follow up Appointment(s)/Referral(s): Derrell Cordova DO [Primary Care Provider] - 1-2 days (Patient already has an appointment for Oct.20 at 10:00 am. at [facility].) Patient Instructions/Handouts: Hypertension (GEN) Activity/Diet/Wound Care/Special Instructions: Check blood pressures at home, follow up with PCP. Discharge Disposition: HOME SELF-CARE
== END 2016-10-12 16:50 | disposition home or self-care (01) ==
LOC: EC 10:37 → 3OBS 11:31 → 2CATHESU 20:26 → 3OBS 10-11 10:31
PROVIDERS: ADMIT Hospitalist; ATTEND Hospitalist
DX: I10 Essential (primary) hypertension (principal); C79.51 Secondary malignant neoplasm of bone; E78.5 Hyperlipidemia, unspecified; R07.89 Other chest pain; F41.9 Anxiety disorder, unspecified; R20.0 Anesthesia of skin; R20.2 Paresthesia of skin; N40.0 Benign prostatic hyperplasia without lower urinary tract symptoms; R42 Dizziness and giddiness; R53.1 Weakness; R06.02 Shortness of breath; F12.90 Cannabis use, unspecified, uncomplicated; R05 Cough; Z85.528 Personal history of other malignant neoplasm of kidney; Z90.5 Acquired absence of kidney; Z87.891 Personal history of nicotine dependence; Z79.82 Long term (current) use of aspirin; Z79.899 Other long term (current) drug therapy; Z88.1 Allergy status to other antibiotic agents; Z88.8 Allergy status to other drugs, medicaments and biological substances; Z82.49 Family history of ischemic heart disease and other diseases of the circulatory system; Z80.3 Family history of malignant neoplasm of breast; Z80.8 Family history of malignant neoplasm of other organs or systems
CPT/HCPCS: 36415; 93005; 93306; 80061; 80053; 82550; 82553; 83735; 84100; 84443; 84484; 85025 ×3; 85610; 85730 ×3; 81003; 87086; 71020; 99291; 96365; 96366 ×7; G0378 ×3; J1644 ×3; 96361

== ENCOUNTER 2017-02-17 22:21 | Emergency (ER) | payer OTHER ==
[2017-02-17 22:40] VITALS: RESP 18
--- NOTE | 2017-02-17 23:22 | ED ---
Recheck HPI - General Chief Complaint: Recheck/Abnormal Lab/Rx Stated Complaint: high [facility] Time Seen by Provider: 02/17/17 22:55 Source: patient, RN notes reviewed Mode of arrival: ambulatory Limitations: no limitations - History of Present Illness Initial Comments: 76-year-old male presents to the emergency department with a chief complaint of a high potassium. Patient states she was called at home by his doctor for an elevated potassium and they told him to go to the ER. Patient does have history of cancer but he does not recall the name. Patient has no symptoms at this time.Patient denies any recent fever, chills, shortness of breath, chest pain, back pain, abdominal pain, nausea vomiting, numbness or tingling, dysuria or hematuria, constipation or diarrhea, headaches or visual changes, or any other current symptoms. - Related Data Home Medications Medication Instructions Recorded Confirmed Aspirin EC [Ecotrin Low Dose] 81 mg PO HS 06/04/16 02/17/17 Pravastatin Sodium [Pravachol] 20 mg PO HS 06/04/16 02/17/17 Tamsulosin HCl [Flomax] 0.4 mg PO HS 06/04/16 02/17/17 Lidocaine 5% Patch [Lidoderm] 1 patch TOPICAL DAILY PRN 02/17/17 02/17/17 Previous Rx's Medication Instructions Recorded Lisinopril [Zestril] 20 mg PO BID #60 tab 10/12/16 Allergies Allergy/AdvReac Type Severity Reaction Status Date / Time atorvastatin calcium Allergy Unknown Verified 02/17/17 23:08 [From Lipitor] clindamycin Allergy Unknown Verified 02/17/17 23:08 Review of Systems ROS Statement: Those systems with pertinent positive or pertinent negative responses have been documented in the HPI. ROS Other: All systems not noted in ROS Statement are negative. Past Medical History Past Medical History: Cancer, Chest Pain / Angina, GERD/Reflux, Hyperlipidemia, Hypertension, Prostate Disorder Additional Past Medical History / Comment(s): prostate enlarged, left renal cancer, "I GUESS CANCER SPREAD ,HAVE SPOT ON STERNUM AND IN LUNGS", PANCREATITIS ,GOUT, HAD A PNE VACCINE NOT SURE OF DATE. History of Any Multi-Drug Resistant Organisms: None Reported Past Surgical History: Heart Catheterization Additional Past Surgical History / Comment(s): dental, left nephrectomy 2016, RT HAND 2ND DIGIT LOST TOP OF FINGER IN CRUSHING INJURY Past Anesthesia/Blood Transfusion Reactions: No Reported Reaction Past Psychological History: No Psychological Hx Reported Smoking Status: Former smoker Past Alcohol Use History: Occasional Additional Past Alcohol Use History / Comment(s): QUIT SMOKING 1980 Past Drug Use History: None Reported - Past Family History Father Family Medical History: Cancer, Hypertension, Myocardial Infarction ([place]) Additional Family Medical History / Comment(s): SKIN CANCER Mother Family Medical History: Cancer Additional Family Medical History / Comment(s): breast cancer - throat cancer Sister(s) Family Medical History: Cancer Additional Family Medical History / Comment(s): SKIN CANCER General Exam Limitations: no limitations General appearance: alert, in no apparent distress Neck exam: Present: normal inspection. Absent: tenderness, meningismus, lymphadenopathy Respiratory exam: Present: normal lung sounds bilaterally. Absent: respiratory distress, wheezes, rales, rhonchi, stridor Cardiovascular Exam: Present: regular rate, normal rhythm, normal heart sounds. Absent: systolic murmur, diastolic murmur, rubs, gallop, clicks Neurological exam: Present: alert, oriented X3 Psychiatric exam: Present: normal affect, normal mood Skin exam: Present: warm, dry, intact, normal color. Absent: rash Course Vital Signs 02/17/17 02/17/17 22:37 23:50 Temperature 97.6 F Pulse Rate 73 74 Respiratory 18 18 Rate Blood Pressure 123/61 122/71 O2 Sat by Pulse 97 96 Oximetry Medical Decision Making - Medical Decision Making 76-year-old male presents for reevaluation of possible hyperkalemia. At this time blood work was drawn. This time I reviewed through the initial mildly elevated potassium of 5.9. EKG does not show any acute EKG changes. At this time we did discuss admission for the patient we discussed IV hydration we discussed continued observation. This patient but requested a home. Due to no EKG changes we will hydrate the patient due to elevated creatinine as well as give him Kayexalate. We discussed these follow-up on Monday for repeat laboratory. We discussed return parameters and all his questions. He stated that he understood the plan. He will be discharged home. - Lab Data Result diagrams: 02/17/17 23:10 02/17/17 23:10 Lab Results 02/17/17 02/17/17 Range/Units 23:10 23:10 WBC 8.9 (3.8-10.6) k/uL RBC 3.67 L (4.30-5.90) m/uL Hgb 10.4 L (13.0-17.5) gm/dL Hct 31.4 L (39.0-53.0) % MCV 85.6 (80.0-100.0) fL MCH 28.4 (25.0-35.0) pg MCHC 33.2 (31.0-37.0) g/dL RDW 13.1 (11.5-15.5) % Plt Count 370 (150-450) k/uL Neutrophils % 57 % Lymphocytes % 24 % Monocytes % 7 % Eosinophils % 8 % Basophils % 1 % Neutrophils # 5.1 (1.3-7.7) k/uL Lymphocytes # 2.1 (1.0-4.8) k/uL Monocytes # 0.7 (0-1.0) k/uL Eosinophils # 0.8 H (0-0.7) k/uL Basophils # 0.0 (0-0.2) k/uL Sodium 140 (137-145) mmol/L Potassium 5.9 H (3.5-5.1) mmol/L Chloride 107 (98-107) mmol/L Carbon Dioxide 25 (22-30) mmol/L Anion Gap 8 mmol/L BUN 44 H (9-20) mg/dL Creatinine 2.10 H (0.66-1.25) mg/dL Est GFR (MDRD) Af Amer 38 (>60 ml/min/1.73 sqM) Est GFR (MDRD) Non-Af 31 (>60 ml/min/1.73 sqM) Glucose 96 (74-99) mg/dL Calcium 9.5 (8.4-10.2) mg/dL Total Bilirubin 0.2 (0.2-1.3) mg/dL AST 13 L (17-59) U/L ALT 24 (21-72) U/L Alkaline Phosphatase 87 (38-126) U/L Total Protein 6.5 (6.3-8.2) g/dL Albumin 3.4 L (3.5-5.0) g/dL - EKG Data -: EKG Interpreted by Me 02/18/17 00:32 normal sinus rhythm 72 bpm, normal axis, no atopy, no S-T depressions or elevations, Disposition Clinical Impression: Hyperkalemia, Elevated creatine kinase, Dehydration Disposition: HOME SELF-CARE Condition: Stable Instructions: Hyperkalemia (ED) Additional Instructions: Please use medication as discussed. Please follow up with family doctor if symptoms have not improved over the next two days. Please return to the emergency room if your symptoms increase or worsen or for any other concerns. Follow-up with her doctor for repeat blood work in one to 2 days. Referrals: Derrell Cordova DO [Primary Care Provider] - 1-2 days Time of Disposition: 00:32
[2017-02-17 23:29] LABS: Basophils % (A) 1 %; CH 28.6; CHCM 33.5; Eosinophils # (A) 0.8 k/uL (0-0.7); Eosinophils % (A) 8 %; HCT 31.4 % (39.0-53.0); HDW 2.63; HGB 10.4 gm/dL (13.0-17.5); Luc # (Auto) 0.24; Luc % (Auto) 3; Lymphocytes # (A) 2.1 k/uL (1.0-4.8); Lymphocytes % (A) 24 %; MCH 28.4 pg (25.0-35.0); MCHC 33.2 g/dL (31.0-37.0); MCV 85.6 fL (80.0-100.0); Mean Platelet Volume 7.7; Monocytes # (A) 0.7 k/uL (0-1.0); Monocytes % (A) 7 %; Neutrophils # (A) 5.1 k/uL (1.3-7.7); Neutrophils % (A) 57 %; RBC 3.67 m/uL (4.30-5.90); RDW 13.1 % (11.5-15.5); WBC 8.9 k/uL (3.8-10.6); WBC (Perox) 9.36
[2017-02-17 23:39] LABS: Calcium 9.5 mg/dL (8.4-10.2); Potassium 5.9 mmol/L (3.5-5.1); Total Bilirubin 0.2 mg/dL (0.2-1.3); Total Protein 6.5 g/dL (6.3-8.2)
[2017-02-18] MEDS ORDERED: SODIUM CHLORIDE 0.9% 1,000 ML IV STA (00:08)
[2017-02-18] MEDS ORDERED: SODIUM POLYSTYRENE SULFONATE 15 GM/60 ML BOTTLE PO STA (00:32)
[2017-02-18 01:12] VITALS: BP 148/80; PULSE 71; TEMP 97.7
== END 2017-02-18 01:27 | disposition home or self-care (01) ==
LOC: EC 22:21
DX: E87.5 Hyperkalemia (principal); E86.0 Dehydration; R74.8 Abnormal levels of other serum enzymes; E78.5 Hyperlipidemia, unspecified; I10 Essential (primary) hypertension; Z85.528 Personal history of other malignant neoplasm of kidney; Z87.891 Personal history of nicotine dependence; Z79.82 Long term (current) use of aspirin; Z79.899 Other long term (current) drug therapy
CPT/HCPCS: 36415; 80053; 85025; 93005; 96360; 99285

== ENCOUNTER 2017-04-14 01:07 | Emergency (ER) | payer OTHER ==
[2017-04-14 01:17] VITALS: TEMP 97.1
--- NOTE | 2017-04-14 01:47 | ED ---
General Adult HPI - General Chief complaint: Recheck/Abnormal Lab/Rx Stated complaint: Hypertension Time Seen by Provider: 04/14/17 01:35 Source: patient, RN notes reviewed Mode of arrival: wheelchair Limitations: no limitations - History of Present Illness Initial comments: Patient is a pleasant 76-year-old male presenting to the emergency department with concerns for blood pressure. Patient states his blood pressure has been running higher than normal. Patient is on Norvasc 5 mg daily. Patient was also recently changed from lisinopril to Flomax. Blood pressure was systolic 130 then 140. Prior to arrival blood pressure was 170/90. Patient otherwise feels fine at this time. Patient states he does at times have paresthesias. Patient states also at times he can feel his pulse when his blood pressure runs high. Patient does have a history of kidney cancer. Patient was recently found to have metastasis to the sternum and lungs. Patient is on oral medication for this. - Related Data Home Medications Medication Instructions Recorded Confirmed Aspirin EC [Ecotrin Low Dose] 81 mg PO HS 06/04/16 04/14/17 Pravastatin Sodium [Pravachol] 20 mg PO HS 06/04/16 04/14/17 Tamsulosin HCl [Flomax] 0.4 mg PO HS 06/04/16 04/14/17 Lidocaine 5% Patch [Lidoderm] 1 patch TOPICAL DAILY PRN 02/17/17 02/17/17 amLODIPine [Norvasc] 5 mg PO DAILY 04/14/17 04/14/17 Allergies Allergy/AdvReac Type Severity Reaction Status Date / Time atorvastatin calcium Allergy Unknown Verified 04/14/17 01:17 [From Lipitor] clindamycin Allergy Unknown Verified 04/14/17 01:17 Review of Systems ROS Statement: Those systems with pertinent positive or pertinent negative responses have been documented in the HPI. ROS Other: All systems not noted in ROS Statement are negative. Constitutional: Denies: fever Eyes: Denies: eye pain ENT: Denies: ear pain Respiratory: Denies: cough, dyspnea Cardiovascular: Denies: chest pain Endocrine: Denies: fatigue Gastrointestinal: Denies: abdominal pain Genitourinary: Denies: dysuria Musculoskeletal: Denies: back pain Skin: Denies: rash Neurological: Reports: paresthesias. Denies: weakness, confusion Past Medical History Past Medical History: Cancer, Chest Pain / Angina, GERD/Reflux, Hyperlipidemia, Hypertension, Prostate Disorder Additional Past Medical History / Comment(s): prostate enlarged, left renal cancer, "I GUESS CANCER SPREAD ,HAVE SPOT ON STERNUM AND IN LUNGS", PANCREATITIS ,GOUT, HAD A PNE VACCINE NOT SURE OF DATE. History of Any Multi-Drug Resistant Organisms: None Reported Past Surgical History: Heart Catheterization Additional Past Surgical History / Comment(s): dental, left nephrectomy 2016, RT HAND 2ND DIGIT LOST TOP OF FINGER IN CRUSHING INJURY Past Anesthesia/Blood Transfusion Reactions: No Reported Reaction Past Psychological History: No Psychological Hx Reported Smoking Status: Former smoker Past Alcohol Use History: Occasional Past Drug Use History: None Reported - Past Family History Father Family Medical History: Cancer, Hypertension, Myocardial Infarction ([place]) Additional Family Medical History / Comment(s): SKIN CANCER Mother Family Medical History: Cancer Additional Family Medical History / Comment(s): breast cancer - throat cancer Sister(s) Family Medical History: Cancer Additional Family Medical History / Comment(s): SKIN CANCER General Exam Limitations: no limitations General appearance: alert, in no apparent distress Head exam: Present: atraumatic Eye exam: Present: normal appearance, PERRL, EOMI ENT exam: Present: normal oropharynx Neck exam: Present: normal inspection Respiratory exam: Present: normal lung sounds bilaterally Cardiovascular Exam: Present: regular rate, normal rhythm GI/Abdominal exam: Present: soft. Absent: tenderness Extremities exam: Present: normal inspection Neurological exam: Present: alert. Absent: motor sensory deficit Psychiatric exam: Present: normal affect, normal mood Skin exam: Present: normal color Course Vital Signs 04/14/17 04/14/17 01:14 02:13 Temperature 97.1 F L Pulse Rate 78 64 Respiratory 18 16 Rate Blood Pressure 169/79 131/81 O2 Sat by Pulse 98 97 Oximetry Medical Decision Making - Medical Decision Making Blood pressure has improved to 131/80. Patient resting comfortably in bed. Patient states he feels he just did not wait long enough to check his blood pressure after his medication. Patient did take both his blood pressure medicines this evening as he normally does. Patient is comfortable with discharge home and advised close follow-up. Disposition Clinical Impression: Hypertension Disposition: HOME SELF-CARE Condition: Stable Instructions: Hypertension (ED) Additional Instructions: Please follow-up with primary care physician and your oncologist in the next day or 2 for recheck. Return for increased blood pressure, weakness, chest pain , worsening or changing symptoms or other concerns. Referrals: Derrell Cordova DO [Primary Care Provider] - 1-2 days Juan J Raymond MD [STAFF PHYSICIAN] - 1-2 days Time of Disposition: 02:32
[2017-04-14 02:14] VITALS: BP 131/81; PULSE 64; RESP 16
== END 2017-04-14 02:35 | disposition home or self-care (01) ==
LOC: EC 01:07
DX: I10 Essential (primary) hypertension (principal); E78.5 Hyperlipidemia, unspecified; Z95.5 Presence of coronary angioplasty implant and graft; Z88.1 Allergy status to other antibiotic agents; Z88.8 Allergy status to other drugs, medicaments and biological substances; Z79.82 Long term (current) use of aspirin; Z79.899 Other long term (current) drug therapy; Z87.891 Personal history of nicotine dependence
CPT/HCPCS: 99282

== ENCOUNTER 2017-10-08 14:46 | Emergency (ER) | payer OTHER ==
--- NOTE | 2017-10-08 16:24 | XR ---
EXAMINATION TYPE: XR ribs RT w pa chest xray DATE OF EXAM: 10/08/2017 COMPARISON: Summary 2016 HISTORY: Left arm pain as well as chest pain with hypertension. TECHNIQUE: Single AP view of the chest as well as 5 views the right ribs were obtained. FINDINGS: Lungs are clear. No pneumothorax or pleural effusion is identified. The cardiac silhouette is within normal limits. Numerous surgical marie are identified gastroesophageal junction. Acute displaced rib fracture is not seen. There is focal dextroconvex curvature of the upper lumbar s pine. IMPRESSION: No acute intrathoracic abnormality or acute displaced rib fracture is seen.
--- NOTE | 2017-10-08 16:33 | ED ---
General Adult HPI - General Chief complaint: Chest Pain Stated complaint: Chest Pain Time Seen by Provider: 10/08/17 15:04 Source: patient, family, RN notes reviewed, old records reviewed Mode of arrival: wheelchair Limitations: no limitations - History of Present Illness Initial comments: Chief complaint and history of present illness is a 77-year-old male here with his significant other. 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 Patient had point specific discomfort in the anterior left axillary region. Palpation of one small area cause discomfort that comes and goes. The patient wanted to get checked out. Denies pain with deep breathing or coughing. - Related Data Home Medications Medication Instructions Recorded Confirmed Votrient Pazopanib 200mg 600 mg PO DAILY 08/20/17 10/08/17 Aspirin EC [Ecotrin] 325 mg PO HS 10/08/17 10/08/17 Hydrochlorothiazide 12.5 mg PO HS 10/08/17 10/08/17 Pravastatin Sodium [Pravachol] 20 mg PO HS 10/08/17 10/08/17 Previous Rx's Medication Instructions Recorded Ibuprofen [Motrin] 600 mg PO Q6HR PRN #20 tab 10/08/17 Allergies Allergy/AdvReac Type Severity Reaction Status Date / Time atorvastatin calcium Allergy Unknown Verified 10/08/17 15:13 [From Lipitor] clindamycin Allergy Unknown Verified 10/08/17 15:13 Review of Systems ROS Statement: Those systems with pertinent positive or pertinent negative responses have been documented in the HPI. Review of systems no headache or visual acuity changes no chest pain at this time. No GI/ complaints or problems no neuro deficits. All systems are reviewed. Past medical problems significant for kidney cancer with metastatic spread. History of angina, GERD, hyperlipidemia, hypertension, BPH,. The patient's surgeries heart catheterization with one stent. And left nephrectomy. Family history sister had jaw cancer mother had breast cancer. Patient has ALLERGIES to atorvastatin and clindamycin he denies smoking, quit 30 years ago denies alcohol use. ROS Other: All systems not noted in ROS Statement are negative. Past Medical History Past Medical History: Cancer, Chest Pain / Angina, GERD/Reflux, Hyperlipidemia, Hypertension, Prostate Disorder, Renal Disease Additional Past Medical History / Comment(s): prostate enlarged, left renal cancer, PANCREATITIS,GOUT, History of Any Multi-Drug Resistant Organisms: None Reported Past Surgical History: Heart Catheterization Additional Past Surgical History / Comment(s): dental, left nephrectomy 2016, RT HAND 2ND DIGIT LOST TOP OF FINGER IN CRUSHING INJURY Past Anesthesia/Blood Transfusion Reactions: No Reported Reaction Past Psychological History: No Psychological Hx Reported Smoking Status: Former smoker Past Alcohol Use History: Occasional Past Drug Use History: Marijuana - Past Family History Father Family Medical History: Cancer, Hypertension, Myocardial Infarction ([place]) Additional Family Medical History / Comment(s): SKIN CANCER Mother Family Medical History: Cancer Additional Family Medical History / Comment(s): breast cancer - throat cancer Sister(s) Family Medical History: Cancer Additional Family Medical History / Comment(s): SKIN CANCER General Exam - General Exam Comments Initial Comments: General: The patient is awake and alert, in no distress, and does not appear acutely ill. Current no pain. Vital signs temperature 97.7 pulse 87 return rate 20 pulse ox I7 percent room air blood pressure 171/82. The patient's been having his blood pressure medications altered recently by his doctor. Also has been recently placed on Lasix because of mild swelling to the lower extremities. Eye: Pupils are equal, round and reactive to light, extra-ocular movements are intact ; there is normal conjunctiva bilaterally. No signs of icterus. Ears, nose, mouth and throat: There are moist mucous membranes and no oral lesions. Neck: The neck is supple, no anterior cervical lymphadenopathy. Cardiovascular: There is a regular rate and rhythm. No murmur, rub or gallop is appreciated. Respiratory: Lungs are clear to auscultation, respirations are non-labored, breath sounds are equal. No wheezes, stridor, rales, or rhonchi. She has point specific area discomfort in the anterior axillary line just proximal to the axilla. Asked to feel around to find 1 spot that hurts. Mild discomfort with palpation. No lymphadenopathy of significant size appreciated. No evidence of any abscess or infection. Gastrointestinal: Soft, non-distended, non-tender abdomen without masses or organomegaly noted. There is no rebound or guarding present. No CVA tenderness. Bowel sounds are unremarkable. Back: No back pain Musculoskeletal: Full range upper and lower extremities. No neuro deficits Skin: Skin is warm and dry and no rashes or lesions are noted. Limitations: no limitations Course Vital Signs 10/08/17 14:48 Temperature 97.7 F Pulse Rate 67 Respiratory 20 Rate Blood Pressure 171/82 O2 Sat by Pulse 97 Oximetry Medical Decision Making - Medical Decision Making Chest x-ray was done and reviewed by radiologist his impression is the lungs are clear. No pneumothorax or pleural effusion is identified. Cardiac silhouette is within normal limits. Numerous surgical marie are identified gastroesophageal junction. Acute displaced rib fracture is not seen. There is focal convex curvature of the upper lumbar spine no acute intrathoracic abnormality or acute displaced rib fractures seen. As read by Dr. Barajas She'll be advised to continue to watch for any swelling, abscess etc. if this develops he is to follow-up with family physician. Otherwise continue with ibuprofen or Tylenol for discomfort. Disposition Clinical Impression: Costochondritis, acute Disposition: HOME SELF-CARE Condition: Fair Instructions: Costochondritis (ED) Additional Instructions: Follow-up with your family physician. Take Tylenol or ibuprofen for pain Prescriptions: Ibuprofen [Motrin] 600 mg PO Q6HR PRN #20 tab PRN Reason: Pain Referrals: Michelle Soliz MD [Primary Care Provider] - 1-2 days Time of Disposition: 16:33
[2017-10-08 17:07] VITALS: BP 156/70; PULSE 80; RESP 16; TEMP 97.8
== END 2017-10-08 17:06 | disposition home or self-care (01) ==
LOC: EC 14:46
DX: M94.0 Chondrocostal junction syndrome [Tietze] (principal); C78.02 Secondary malignant neoplasm of left lung; C78.01 Secondary malignant neoplasm of right lung; M43.8X6 Other specified deforming dorsopathies, lumbar region; E78.5 Hyperlipidemia, unspecified; I10 Essential (primary) hypertension; Z87.891 Personal history of nicotine dependence; Z79.82 Long term (current) use of aspirin; Z79.899 Other long term (current) drug therapy; Z88.1 Allergy status to other antibiotic agents; Z88.8 Allergy status to other drugs, medicaments and biological substances; Z85.528 Personal history of other malignant neoplasm of kidney; Z90.5 Acquired absence of kidney; Z95.9 Presence of cardiac and vascular implant and graft, unspecified; Z82.49 Family history of ischemic heart disease and other diseases of the circulatory system
CPT/HCPCS: 93005; 99285

== ENCOUNTER 2017-10-11 02:57 | Observation (INO) | payer MEDICARE, OTHER ==
[2017-10-11] MEDS ORDERED: ASPIRIN 81 MG ONE (03:43)
[2017-10-11 06:04] LABS: Albumin 3.8 g/dL (3.5-5.0); Calcium 9.8 mg/dL (8.4-10.2); Creatine Kinase 26 U/L (55-170); Creatine Kinase MB 0.7 ng/mL (0.0-2.4); Potassium 4.2 mmol/L (3.5-5.1); Total Bilirubin 0.3 mg/dL (0.2-1.3); Total Protein 6.7 g/dL (6.3-8.2); Troponin I <0.012 ng/mL (0.000-0.034)
--- NOTE | 2017-10-11 06:16 | XR ---
EXAM: XR Chest, 1 View CLINICAL HISTORY: No prior, chest pain, SOB TECHNIQUE: Frontal view of the chest. COMPARISON: No relevant prior studies available. FINDINGS: Lungs: Unremarkable. No consolidation. Pleural space: Unremarkable. No pneumothorax. Heart: Unremarkable. No cardiomegaly. Mediastinum: Unremarkable. Bones/joints: Unremarkable. IMPRESSION: No lobar consolidation or pulmonary edema.
[2017-10-11 06:17] LABS: Basophils # (A) 0.1 k/uL (0-0.2); Basophils % (A) 1 %; Eosinophils # (A) 0.4 k/uL (0-0.7); Eosinophils % (A) 7 %; HCT 40.1 % (39.0-53.0); HGB 13.6 gm/dL (13.0-17.5); Lymphocytes # (A) 1.6 k/uL (1.0-4.8); Lymphocytes % (A) 30 %; MCH 32.7 pg (25.0-35.0); MCHC 33.8 g/dL (31.0-37.0); MCV 96.6 fL (80.0-100.0); Mean Platelet Volume 8.5; Monocytes # (A) 0.6 k/uL (0-1.0); Monocytes % (A) 11 %; Neutrophils # (A) 2.6 k/uL (1.3-7.7); Neutrophils % (A) 50 %; Platelet Count 223 k/uL (150-450); RBC 4.15 m/uL (4.30-5.90); RDW 14.2 % (11.5-15.5); WBC 5.3 k/uL (3.8-10.6)
[2017-10-11] MEDS ORDERED: NITROGLYCERIN SL TABS 0.4 MG TAB SUBLINGUAL PRN (07:37)
[2017-10-11 09:55] LABS: Creatine Kinase 21 U/L (55-170)
[2017-10-11 10:05] LABS: Creatine Kinase MB 0.5 ng/mL (0.0-2.4)
[2017-10-11 10:09] LABS: Troponin I <0.012 ng/mL (0.000-0.034)
--- NOTE | 2017-10-11 14:26 | P.CRDCN ---
History of Present Illness Consult date: 10/11/17 Consult reason: chest pain History of present illness: Mr. Mckeon is a pleasant 77-year-old gentlemen past medical history significant for hypertension, left renal cancer with nephrectomy with mets to the sternum and lungs, dyslipidemia and gastroesophageal reflux disease. He denies history of coronary artery disease. States he had a cardiac catheterization many years ago at the [facility] that was negative. We have been asked to see him in consultation for complaints of chest pain. The pain is located in the mid-sternal region and radiates around to the left axilla region. No radiation to the arm, back, neck or jaw. He denies associated shortness of breath, dizziness, palpitations, diaphoresis, nausea or vomiting. The pain has been intermittent in nature for the previous few days and he presented to ED earlier this week and was deemed to be musculoskeletal. This instance started while he was laying in bed and lasted for approximately 10 minutes. EKG on arrival reveals sinus bradycardia with no acute ST or T-wave abnormalities evident. Chest xray is negative for an acute cardiopulmonary process. Laboratory data reviewed, hgb 13.6, plt 223, potassium 4.2, creatinine 1.7, cardiac enzymes negative x2, lipase 329. Most recent echocardiogram performed 09/2016 reveals preserved LV systolic function with EF 55-60% and mild aortic regurgitation. Review of Systems At the time of my exam: CONSTITUTIONAL: Denies fever. Denies chills. EYES: Denies blurred vision. Denies vision changes. Denies eye pain. EARS, NOSE, MOUTH & THROAT: Denies headache. Denies sore throat. Denies ear pain. CARDIOVASCULAR: Denies chest pain. Denies shortness of breath. Denies orthopnea. Denies PND. Denies palpitations. RESPIRATORY: Denies cough. GASTROINTESTINAL: Denies abdominal pain. Denies diarrhea. Denies constipation. Denies nausea. Denies vomiting. MUSCULOSKELETAL: Denies myalgias. INTEGUMENTARY: Denies pruitis. Denies rash. NEUROLOGIC: Denies numbness. Denies tingling. Denies weakness. PSYCHIATRIC: Denies anxiety. Denies depression. ENDOCRINE: Denies fatigue. Denies weight change. Denies polydipsia. Denies polyurina. GENITOURINARY: Denies burning, hematuria or urgency with micturation. HEMATOLOGIC: Denies history of anemia. Denies bleeding. Past Medical History Past Medical History: Cancer, Chest Pain / Angina, GERD/Reflux, Hyperlipidemia, Hypertension, Osteoarthritis (OA), Prostate Disorder, Renal Disease Additional Past Medical History / Comment(s): L renal cancer with nephrectomy/ mets L lung and pt states spot on sternum is gone now-currently taking oral chemotherapy, chronic renal failure stage II, lower leg edema thought to be due to HTN medications, BPH, chronic low back pain, arthritis vs gout r great toe. 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 Past Anesthesia/Blood Transfusion Reactions: No Reported Reaction Smoking Status: Former smoker - Past Family History Father Family Medical History: Cancer, Hypertension, Myocardial Infarction ([place]) Additional Family Medical History / Comment(s): SKIN CANCER Mother Family Medical History: Cancer Additional Family Medical History / Comment(s): breast cancer - throat cancer Sister(s) Family Medical History: Cancer Additional Family Medical History / Comment(s): SKIN CANCER Medications and Allergies Home Medications Medication Instructions Recorded Confirmed Type Votrient Pazopanib 200mg 600 mg PO DAILY 08/20/17 10/11/17 History Aspirin EC [Ecotrin] 325 mg PO HS 10/08/17 10/11/17 History Hydrochlorothiazide 12.5 mg PO HS 10/08/17 10/11/17 History Ibuprofen [Motrin] 600 mg PO Q6HR PRN #20 tab 10/08/17 10/11/17 Rx Pravastatin Sodium [Pravachol] 20 mg PO HS 10/08/17 10/11/17 History Allergies Allergy/AdvReac Type Severity Reaction Status Date / Time atorvastatin calcium Allergy Unknown Verified 10/11/17 07:50 [From Lipitor] clindamycin Allergy Unknown Verified 10/11/17 07:50 Physical Exam Vitals: Vital Signs Temp Pulse Pulse Resp BP BP Pulse Ox 10/11/17 13:08 97.5 F L 55 L 18 189/92 99 10/11/17 12:39 97.7 F 59 L 16 183/84 100 10/11/17 10:00 52 L 16 148/71 98 10/11/17 09:00 51 L 18 113/64 97 10/11/17 08:37 97 F L 57 L 16 141/75 98 Intake and Output 10/10/17 10/11/17 10/11/17 22:59 06:59 14:59 Other: Weight 58.1 kg Patient Weight 10/12/17 06:59 Weight 58.1 kg Blood pressure 148/71 heart rate 52 afebrile GENERAL: This is a 77-year-old male in no apparent distress at the time of my examination. HEENT: Head is atraumatic, normocephalic. Pupils are equal, round. Sclerae anicteric. Conjunctivae are clear. Mucous membranes of the mouth are moist. Neck is supple. There is no jugular venous distention. No carotid bruit is heard. LUNGS: Clear to auscultation no wheezes, rales or rhonchi. No chest wall tenderness is noted on palpation or with deep breathing. HEART: Regular rate and rhythm without murmurs, rubs or gallops. S1 and S2 heard. ABDOMEN: Soft, nontender. Bowel sounds are heard. No organomegaly noted. EXTREMITIES: No evidence of peripheral edema and no calf tenderness noted. VASCULAR: Radial and dorsalis pedis pulses palpated, no evidence of clubbing. NEUROLOGIC: Patient is awake, alert and oriented x3. Results 10/11/17 03:28 10/11/17 03:28 Cardiac Enzymes 10/11/17 10/11/17 10/11/17 Range/Units 03:28 03:28 09:18 AST 21 (17-59) U/L CK-MB (CK-2) 0.7 0.5 (0.0-2.4) ng/mL Troponin I <0.012 <0.012 (0.000-0.034) ng/mL CBC 10/11/17 Range/Units 03:28 WBC 5.3 (3.8-10.6) k/uL RBC 4.15 L (4.30-5.90) m/uL Hgb 13.6 (13.0-17.5) gm/dL Hct 40.1 (39.0-53.0) % Plt Count 223 (150-450) k/uL Comprehensive Metabolic Panel 10/11/17 Range/Units 03:28 Sodium 138 (137-145) mmol/L Potassium 4.2 (3.5-5.1) mmol/L Chloride 100 (98-107) mmol/L Carbon Dioxide 27 (22-30) mmol/L BUN 33 H (9-20) mg/dL Creatinine 1.70 H (0.66-1.25) mg/dL Glucose 91 (74-99) mg/dL Calcium 9.8 (8.4-10.2) mg/dL AST 21 (17-59) U/L ALT 31 (21-72) U/L Alkaline Phosphatase 97 (38-126) U/L Total Protein 6.7 (6.3-8.2) g/dL Albumin 3.8 (3.5-5.0) g/dL Current Medications Generic Name Dose Route Start Last Admin Trade Name Freq PRN Reason Stop Dose Admin Aspirin 325 mg 10/12/17 09:00 Aspirin PO DAILY JAY JAY Hydrochlorothiazide 12.5 mg 10/11/17 21:00 Hydrodiuril PO HS JAY JAY Nitroglycerin 0.4 mg 10/11/17 07:37 Nitrostat SUBLINGUAL Q5M PRN Chest Pain Non-Formulary Medication 600 mg 10/11/17 09:00 Votrient Pazopanib 200mg PO DAILY JAY JAY Pravastatin Sodium 20 mg 10/11/17 21:00 Pravachol PO HS JAY JAY Intake and Output 10/10/17 10/11/17 10/11/17 22:59 06:59 14:59 Other: Weight 58.1 kg Patient Weight 10/12/17 06:59 Weight 58.1 kg 10/11/17 03:28 10/11/17 03:28 Assessment and Plan Assessment: ASSESSMENT 1. Chest pain, atypical 2. Hypertension 3. Renal cancer with metastasis to the sternum and lungs status post left nephrectomy 4. Dyslipidemia PLAN Obtain 2-D echocardiogram and Doppler study to assess cardiac structure and function. Continue to obtain serial cardiac enzymes. Check magnesium level and d-dimer. Further recommendations will be based upon clinical course. Thank you kindly for this consultation. Nurse Practitioner note has been reviewed, I agree with a documented findings and plan of care. Patient was seen and examined.
[2017-10-11 15:35] LABS: Creatine Kinase 22 U/L (55-170)
[2017-10-11 15:46] LABS: Creatine Kinase MB 0.7 ng/mL (0.0-2.4); Troponin I <0.012 ng/mL (0.000-0.034)
--- NOTE | 2017-10-11 16:57 | ECHOF ---
Referral Reason:chest pain MEASUREMENTS -------- HEIGHT: 165.1 cm WEIGHT: 63.5 kg BP: IVSd: 0.8 cm (0.6 - 1.1) LVIDd: 4.3 cm (3.9 - 5.3) LVPWd: 1.0 cm (0.6 - 1.1) IVSs: 2.2 cm LVIDs: 2.1 cm LVPWs: 1.6 cm Ao Diam: 3.8 cm (2.0 - 3.7) AV Cusp: 1.3 cm (1.5 - 2.6) LA Diam: 3.7 cm (2.7 - 3.8) MV EXCURSION: 12.148 mm (> 18.000) MV EF SLOPE: 37 mm/s (70 - 150) EPSS: 1.2 cm MV E Jian: 0.52 m/s MV DecT: 355 ms MV A Jian: 0.40 m/s MV E/A Ratio: 1.31 AR PHT: 811 ms RAP: 5.00 mmHg RVSP: 9.35 mmHg FINDINGS -------- Sinus rhythm. This was a technically good study. The left ventricular size is normal. Left ventricular wall thickness is normal. Overall left vent ricular systolic function is low-normal with, an EF between 50 - 55 %. The right ventricle is normal in size and function. The left atrium is normal in size. The right atrium is normal in size. Aortic valve is trileaflet and is mildly thickened. There is mild aortic regurgitation. The mitral valve leaflets are mildly thickened. Mild mitral regurgitation is present. Mild tricuspid regurgitation present. The right ventricular systolic pressure, as measured by Doppl er, is 9.35mmHg. Pulmonic valve appears structurally normal. The aortic root size is normal. The pericardium is normal. CONCLUSIONS -------- 1. Sinus rhythm. 2. This was a technically good study. 3. The left ventricular size is normal. 4. Left ventricular wall thickness is normal. 5. Overall left ventricular systolic function is low-normal with, an EF between 50 - 55 %. 6. The right ventricle is normal in size and function. 7. The left atrium is normal in size. 8. The right atrium is normal in size. 9. Aortic valve is trileaflet and is mildly thickened. 10. There is mild aortic regurgitation. 11. The mitral valve leaflets are mildly thickened. 12. Mild mitral regurgitation is present. 13. Mild tricuspid regurgitation present. 14. The right ventricular systolic pressure, as measured by Doppler, is 9.35mmHg. 15. Pulmonic valve appears structurally normal. 16. The aortic root size is normal. 17. The pericardium is normal. TIPPLE OILER: Ginger Colmenares RDCS
[2017-10-11] MEDS: VOTRIENT 200 MG PO SCH (17:38)
[2017-10-11 19:42] VITALS: RESP 18
[2017-10-11] MEDS ORDERED: ACETAMINOPHEN TAB 325 MG TAB PO PRN (19:53)
[2017-10-11] MEDS ORDERED: HYDROCHLOROTHIAZIDE 12.5 MG CAP PO SCH (21:00)
[2017-10-11] MEDS ORDERED: PRAVASTATIN SODIUM 20 MG TAB PO SCH (21:00)
--- NOTE | 2017-10-11 22:47 | HP ---
HISTORY AND PHYSICAL DATE OF SERVICE: 10/11/2017. CHIEF COMPLAINT: Chest pain. HISTORY OF PRESENT ILLNESS: A 77-year-old male patient with history of hypertension, left renal cancer with nephrectomy with mets to sternum and lungs, hyperlipidemia and gastroesophageal reflux disease, presents to ED with a complaint of midsternal chest pain radiating to the left axilla with started a few days ago. According to the patient, pain has been intermittent and initially he thought it was musculoskeletal, so he ignored it. The day of admission, he developed the pain while he was in bed and it lasted for over 10 minutes, so he decided to come to ER. In the ED, patient's EKG showed sinus bradycardia, but no acute ST or T-wave changes. Cardiac enzymes are negative. The patient is admitted for further evaluation. PAST MEDICAL HISTORY: Significant for a history of left renal cancer with metastasis to sternum and lungs, history of hyperlipidemia, gastroesophageal reflux disease, history of hypertension, osteoarthritis, chronic kidney disease stage 2, BPH, chronic low back pain. History of gout. PAST SURGICAL HISTORY: Significant for a left nephrectomy, heart catheterization, crushing injury to right 2nd digit, history of colonoscopy, cardiac catheterization, last one about a year ago. SOCIAL HISTORY: Patient denies any history of alcohol abuse. No drug abuse. He is a former smoker. FAMILY HISTORY: Significant for history of skin cancer in father, hypertension and myocardial infarction. History of breast and throat cancer in mother. History of skin cancer in sister. He is allergic to LIPITOR and CLINDAMYCIN. MEDICATIONS: Patient is on: 1. Aspirin 325 mg p.o. daily. 2. Hydrochlorothiazide 12.5 mg p.o. daily. 3. Motrin 600 mg p.o. every 6 hours hours p.r.n. 4. Pravachol 20 mg p.o. q.h.s. REVIEW OF SYSTEMS: CONSTITUTIONAL: Patient denies any fever or chills. HEENT: Denies any blurred vision or vision changes. No eye pain. No sore throat. No ear pain. RESPIRATORY: Denies any shortness of breath, any cough or wheezing. CARDIOVASCULAR: Patient chest pain as described above. GASTROINTESTINAL: Patient denies any abdominal pain, nausea, vomiting and diarrhea. MUSCULOSKELETAL: Denies any myalgias or joint pains. NEUROLOGICAL: The patient denies any dizziness, lightheadedness, weakness. ENDOCRINE: No polyuria or polydipsia. GENITOURINARY: Denies any urgency or frequency of urination. HEMATOLOGIC: The patient denies any history of bleeding and anemia. Rest of 14-point review of systems is unremarkable. PHYSICAL EXAMINATION: The patient is awake, alert, oriented x3. He is in no acute distress. VITAL SIGNS: Temperature of 97.5, pulse of 85, respiration 18, blood pressure 189/92, O2 saturation 99%. HEENT: Atraumatic, normocephalic. Pupils equal and reactive to light. Extraocular movements intact. Buccal mucosa is moist. Neck is supple. No goiter or lymphadenopathy. JVD is negative. No carotid bruit heard. RESPIRATORY: Lungs are clear to auscultate. No rales, rhonchi or wheezes. CARDIOVASCULAR: Heart is regular rate and rhythm without any murmurs, gallop rhythm. Abdomen is soft and, nontender, nondistended. Bowel sounds positive. EXTREMITIES: No edema, clubbing or cyanosis. Pulses are palpable, 2+. NEUROLOGICAL: The patient is awake, alert, oriented x3. No gross motor or sensory deficit. MUSCULOSKELETAL: Patient has no joint swelling or deformity. Moves all 4 extremities. Skin is warm, dry, and intact. The patient's lymphatic: No axillary or cervical lymph nodes enlargement. LABS: CBC: White blood count of 5.3, hemoglobin 13.6, hematocrit 40.1 and platelet count of 223. Chemical profile: Sodium 138, potassium 4.2, chloride 100, bicarb 27, BUN 33, creatinine 1.7, glucose 91. AST of 21. CK-MB and troponin are unremarkable. ASSESSMENT: 1. Chest pain, rule out acute coronary syndrome. 2. Acute on chronic renal failure. 3. Hypertension. 4. Hyperlipidemia. 5. Metastatic renal cancer. Plan is to admit the patient to telemetry. Monitor cardiac enzymes, EKG. Check 2D echo. Plan is to do carotid Dopplers. Check D-dimer to rule out PE. Further recommendations based upon the clinical course. Will resume all current home medications. Will start patient on DVT prophylaxis. The patient is FULL CODE. MMODL / IJN: [id number] /
[2017-10-12 03:46] LABS: Cholesterol 141 mg/dL (<200); HDL Cholesterol 44 mg/dL (40-60); LDL Cholesterol,Calculated 71 mg/dL (0-99); Triglycerides 129 mg/dL (<150)
[2017-10-12] MEDS ORDERED: ASPIRIN 325 MG TAB PO SCH (09:00)
[2017-10-12] MEDS: VOTRIENT 200 MG PO SCH (12:37)
--- NOTE | 2017-10-12 15:13 | P.PN ---
Subjective Progress Note Date: 10/12/17 Mr. Mckeon is a pleasant 77-year-old gentlemen past medical history significant for hypertension, left renal cancer with nephrectomy with mets to the sternum and lungs, dyslipidemia and gastroesophageal reflux disease. He denies history of coronary artery disease. States he had a cardiac catheterization many years ago at the [facility] that was negative. We have been asked to see him in consultation for complaints of chest pain. The pain is located in the mid-sternal region and radiates around to the left axilla region. No radiation to the arm, back, neck or jaw. He denies associated shortness of breath, dizziness, palpitations, diaphoresis, nausea or vomiting. The pain has been intermittent in nature for the previous few days and he presented to ED earlier this week and was deemed to be musculoskeletal. This instance started while he was laying in bed and lasted for approximately 10 minutes. EKG on arrival reveals sinus bradycardia with no acute ST or T-wave abnormalities evident. Chest xray is negative for an acute cardiopulmonary process. Laboratory data reviewed, hgb 13.6, plt 223, potassium 4.2, creatinine 1.7, cardiac enzymes negative x2, lipase 329. Most recent echocardiogram performed 09/2016 reveals preserved LV systolic function with EF 55-60% and mild aortic regurgitation. 10/12/2017 Mr. Mckeon is seen today in follow-up. Echocardiogram reveals preserved left ventricular systolic function with ejection fraction 50-55%, mild aortic regurgitation, mild MR and mild TR. Cardiac enzymes have come out negative. Magnesium 2.4 and d-dimer is negative. He denies ongoing symptoms of chest pain. Also denies shortness of breath, dizziness, palpitations, nausea or vomiting. Objective - Vital Signs Vital signs: Vital Signs Temp 97.6 F 10/12/17 11:47 Pulse 64 10/12/17 11:47 Resp 18 10/12/17 11:47 BP 100/58 10/12/17 11:47 Pulse Ox 96 10/12/17 11:47 Intake & Output 10/11/17 10/12/17 10/12/17 18:59 06:59 18:59 Intake Total 360 360 Balance 360 360 Weight 58.1 kg 58.1 kg Intake: Oral 360 360 Other: Voiding Method Toilet # Voids 1 1 - Exam Blood pressure 121/74 heart rate 55 GENERAL: Well-appearing, well-nourished and in no acute distress. NECK: Supple without JVD or thyromegaly. LUNGS: Breath sounds clear to auscultation bilaterally. Respiration equal and unlabored. No wheezes, rales or rhonchi. HEART: Regular rate and rhythm without murmurs, rubs or gallops. S1 and S2 heard. EXTREMITIES: Normal range of motion, no edema. No clubbing or cyanosis. Peripheral pulses intact and strong. - Labs CBC & Chem 7: 10/11/17 03:28 10/11/17 03:28 Labs: Abnormal Lab Results - Last 24 Hours (Table) 10/11/17 10/11/17 Range/Units 14:48 14:48 Magnesium 2.4 H (1.6-2.3) mg/dL Total Creatine Kinase 22 L (55-170) U/L Assessment and Plan Assessment: ASSESSMENT 1. Chest pain, atypical. An acute coronary event is ruled out with cardiac. 2. Hypertension 3. Renal cancer with metastasis to the sternum and lungs status post left nephrectomy 4. Dyslipidemia PLAN Obtain catherization records from [facility] for evaluation. Acute coronary even has been ruled out. No further cardiac work-up at this time. Conservative management discussed with the patient and he is agreeable. Follow-up as an outpatient with the [facility]. Nurse Practitioner note has been reviewed, I agree with a documented findings and plan of care. Patient was seen and examined.
[2017-10-12 16:09] VITALS: BP 146/76; PULSE 63; TEMP 97.7
--- NOTE | 2017-10-29 18:11 | DS ---
DISCHARGE SUMMARY ADMISSION AND DISCHARGE DIAGNOSES: 1. Chest pain, rule out acute coronary syndrome. 2. Acute on chronic renal failure. 3. Hypertension. 4. Hyperlipidemia. 5. Metastatic renal cancer. BRIEF HISTORY: This patient is a 77-year-old male patient with a history of hypertension, left renal cancer with nephrectomy and metastasis to sternum and lungs, hypertension, hyperlipidemia, presented to ED with a complaint of mid sternal chest pain which was radiating to the left axilla for a few days. In the ED patient's EKG showed sinus bradycardia with no acute ST-T wave changes. Cardiac enzymes were negative. PAST MEDICAL HISTORY: 1. Left lung cancer with mets to sternum and lungs. 2. Hyperlipidemia. 3. Gastroesophageal reflux disease. 4. Hypertension. 5. Osteoarthritis. 6. Chronic kidney disease, stage 2. 7. Benign prostatic hypertrophy. 8. Chronic low back pain. 9. Gout. HOME MEDICATIONS: 1. Aspirin 325 mg daily. 2. Hydrochlorothiazide 12.5 mg daily. 3. Motrin 600 mg every 6 hours p.r.n. 4. Pravachol 20 at bedtime. PHYSICAL EXAMINATION: Patient was awake, alert, oriented x3. VITAL SIGNS: Temperature 97.5, pulse 85, respiration 18, blood pressure 189/92, O2 saturation 99%. HEENT: Atraumatic, normocephalic. Pupils equal and reactive to light. Extraocular movements intact. Buccal mucosa fair. NECK: Supple. No goiter, lymphadenopathy. JVD negative. No carotid bruit heard. LUNGS: Clear to auscultate. No rales, rhonchi, or wheezes. HEART: Regular rate and rhythm without any gallop rhythm. ABDOMEN: Soft, nontender, nondistended. Bowel sounds positive. EXTREMITIES: No edema, clubbing, cyanosis. Pulses palpable, 2+. NEUROLOGIC: Cranial nerves are intact. No motor or sensory deficit. LABS: On admission, CBC, white blood count 5.3, hemoglobin 13.6, hematocrit 40.1, and platelet count of 223. Chemistry profile , bicarb 27, BUN 33, creatinine 1.7, glucose 91, AST of 21. CK-MB and troponin were negative. BRIEF HOSPITAL COURSE: Patient was admitted to telemetry. Cardiac enzymes and EKG were monitored. The patient was recommended to have a 2D echocardiogram. Patient also had a D-dimer checked in the ED, which was negative. The patient was started on DVT prophylaxis. Home medications were continued. The patient the patient remained full code while in the hospital. The patient's echocardiogram showed ejection fraction of 50% to 60%. The patient was recommended no further workup and was recommended to follow up with the Cardiology as outpatient. DISCHARGE MEDICATIONS: 1. AcipHex 25 mg daily. 2. Hydrochlorothiazide 12.5 mg p.o. daily. 3. Motrin 600 mg p.o. every 6 hours. 4. Metoprolol 25 mg b.i.d. 5. Pravachol 20 mg at bedtime. 6. Flomax 0.5 mg p.o. daily. OTHER: 1. Followup with primary care physician and also cardiology. 2. Continue all current medications. MMDIANAL / PARKERN: [id number] / MTDD
== END 2017-10-12 18:50 | disposition home or self-care (01) ==
LOC: EC 02:57 → 3OBS 07:37
PROVIDERS: ADMIT Hospitalist; ATTEND Hospitalist
DX: R07.89 Other chest pain (principal); C78.02 Secondary malignant neoplasm of left lung; C79.51 Secondary malignant neoplasm of bone; Z85.528 Personal history of other malignant neoplasm of kidney; K21.9 Gastro-esophageal reflux disease without esophagitis; E78.5 Hyperlipidemia, unspecified; M19.90 Unspecified osteoarthritis, unspecified site; N40.0 Benign prostatic hyperplasia without lower urinary tract symptoms; I12.9 Hypertensive chronic kidney disease with stage 1 through stage 4 chronic kidney disease, or unspecified chronic kidney disease; N17.9 Acute kidney failure, unspecified; N18.2 Chronic kidney disease, stage 2 (mild); M54.5 Low back pain; G89.29 Other chronic pain; M10.9 Gout, unspecified; Z90.5 Acquired absence of kidney; Z87.891 Personal history of nicotine dependence; Z80.3 Family history of malignant neoplasm of breast; Z80.8 Family history of malignant neoplasm of other organs or systems; Z88.8 Allergy status to other drugs, medicaments and biological substances; Z88.1 Allergy status to other antibiotic agents; Z79.82 Long term (current) use of aspirin; Z79.899 Other long term (current) drug therapy; Z92.21 Personal history of antineoplastic chemotherapy
CPT/HCPCS: 93005 ×2; 99285 ×2; 36415; 94760; 93306; 85379; 80061; 80053; 82150; 82550; 82553; 83690; 83735; 84484; 85025; 71045; G0378 ×2; 96361; 96374

== ENCOUNTER 2017-10-15 07:14 | Observation (INO) | payer MEDICARE, OTHER ==
[2017-10-15] MEDS ORDERED: ASPIRIN 81 MG PO STA (07:30)
[2017-10-15] MEDS ORDERED: NITROGLYCERIN OINT 1 INCH/GM PACKET TOPICAL STA (07:30)
--- NOTE | 2017-10-15 07:33 | ED ---
General Adult HPI - General Chief complaint: Chest Pain Stated complaint: Chest Pain Time Seen by Provider: 10/15/17 07:25 Source: patient, family, RN notes reviewed Mode of arrival: ambulatory Limitations: no limitations - History of Present Illness Initial comments: Patient is a pleasant 77-year-old male presenting to the emergency department complaining of chest discomfort. Onset of symptoms was mild last night. Symptoms were a little bit through the night and worse this morning around 6 AM. Discomfort is described as pressure. There was some radiation towards the back. Discomfort is only mild anterior at this point. No associated dyspnea, nausea, or diaphoresis. Patient did have similar symptoms a week ago. Patient was in the hospital and advised to follow-up with his location manager. Patient states his location manager has not been able to see him yet. - Related Data Home Medications Medication Instructions Recorded Confirmed Votrient Pazopanib 200mg 600 mg PO DAILY 08/20/17 10/15/17 Aspirin EC [Ecotrin] 325 mg PO HS 10/08/17 10/15/17 Hydrochlorothiazide 12.5 mg PO HS 10/08/17 10/15/17 Pravastatin Sodium [Pravachol] 20 mg PO HS 10/08/17 10/15/17 Metoprolol Tartrate 25 mg PO BID 10/12/17 10/15/17 Tamsulosin HCl [Flomax] 0.4 mg PO DAILY 10/12/17 10/15/17 Allergies Allergy/AdvReac Type Severity Reaction Status Date / Time atorvastatin calcium Allergy Unknown Verified 10/15/17 08:59 [From Lipitor] clindamycin Allergy Unknown Verified 10/15/17 08:59 Review of Systems ROS Statement: Those systems with pertinent positive or pertinent negative responses have been documented in the HPI. ROS Other: All systems not noted in ROS Statement are negative. Constitutional: Denies: fever Eyes: Denies: eye pain ENT: Denies: ear pain Respiratory: Denies: cough, dyspnea Cardiovascular: Reports: chest pain Endocrine: Denies: fatigue Gastrointestinal: Denies: abdominal pain Genitourinary: Denies: dysuria Musculoskeletal: Denies: back pain Skin: Denies: rash Neurological: Denies: weakness Past Medical History Past Medical History: Cancer, Chest Pain / Angina, GERD/Reflux, Hyperlipidemia, Hypertension, Osteoarthritis (OA), Prostate Disorder, Renal Disease Additional Past Medical History / Comment(s): L renal cancer with nephrectomy/ mets L lung and pt states spot on sternum is gone now-currently taking oral chemotherapy, chronic renal failure stage II, lower leg edema thought to be due to HTN medications, BPH, chronic low back pain, arthritis vs gout r great toe. 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 Past Anesthesia/Blood Transfusion Reactions: No Reported Reaction Past Psychological History: Depression Smoking Status: Former smoker Past Alcohol Use History: None Reported Past Drug Use History: Marijuana - Past Family History Father Family Medical History: Cancer, Hypertension, Myocardial Infarction ([place]) Additional Family Medical History / Comment(s): SKIN CANCER Mother Family Medical History: Cancer Additional Family Medical History / Comment(s): breast cancer - throat cancer Sister(s) Family Medical History: Cancer Additional Family Medical History / Comment(s): SKIN CANCER General Exam Limitations: no limitations General appearance: alert, in no apparent distress Head exam: Present: atraumatic Eye exam: Present: normal appearance, PERRL ENT exam: Present: normal oropharynx Neck exam: Present: normal inspection Respiratory exam: Present: normal lung sounds bilaterally. Absent: chest wall tenderness Cardiovascular Exam: Present: regular rate, normal rhythm Expanded Peripheral pulses: 2+: Radial (R), Radial (L), Dorsalis Pedis (R), Dorsalis Pedis (L) GI/Abdominal exam: Present: soft. Absent: tenderness Extremities exam: Present: normal inspection. Absent: pedal edema, calf tenderness Neurological exam: Present: alert Psychiatric exam: Present: normal affect, normal mood Skin exam: Present: normal color Course Vital Signs 10/15/17 10/15/17 10/15/17 07:20 07:22 08:07 Temperature 97.9 F Pulse Rate 62 54 L Respiratory 18 18 Rate Blood Pressure 182/91 156/84 O2 Sat by Pulse 99 100 Oximetry 10/15/17 08:36 Temperature Pulse Rate 50 L Respiratory 18 Rate Blood Pressure 147/82 O2 Sat by Pulse 99 Oximetry EKG Findings - EKG Comments: EKG Findings:: Sinus bradycardia 56. OK 194. QRS 98. QT 434. QTC 418. Normal axis. Normal QRS. No acute ST change. Medical Decision Making - Medical Decision Making Patient reevaluated and resting comfortably in bed. Patient updated on results and plan. Case was discussed in detail with Dr. Tellez, who will admit for Dr. damico - Lab Data Result diagrams: 10/15/17 07:31 10/15/17 07:31 Lab Results 10/15/17 10/15/17 10/15/17 Range/Units 07:31 07:31 07:31 WBC 5.8 (3.8-10.6) k/uL RBC 4.16 L (4.30-5.90) m/uL Hgb 13.5 (13.0-17.5) gm/dL Hct 40.9 (39.0-53.0) % MCV 98.2 (80.0-100.0) fL MCH 32.3 (25.0-35.0) pg MCHC 32.9 (31.0-37.0) g/dL RDW 14.6 (11.5-15.5) % Plt Count 211 (150-450) k/uL Neutrophils % 50 % Lymphocytes % 31 % Monocytes % 9 % Eosinophils % 7 % Basophils % 1 % Neutrophils # 2.9 (1.3-7.7) k/uL Lymphocytes # 1.8 (1.0-4.8) k/uL Monocytes # 0.5 (0-1.0) k/uL Eosinophils # 0.4 (0-0.7) k/uL Basophils # 0.0 (0-0.2) k/uL PT (9.0-12.0) sec INR (<1.2) APTT (22.0-30.0) sec Sodium 140 (137-145) mmol/L Potassium 4.2 (3.5-5.1) mmol/L Chloride 105 (98-107) mmol/L Carbon Dioxide 24 (22-30) mmol/L Anion Gap 11 mmol/L BUN 33 H (9-20) mg/dL Creatinine 1.44 H (0.66-1.25) mg/dL Est GFR (MDRD) Af Amer 58 (>60 ml/min/1.73 sqM) Est GFR (MDRD) Non-Af 48 (>60 ml/min/1.73 sqM) Glucose 91 (74-99) mg/dL Calcium 9.4 (8.4-10.2) mg/dL Magnesium 2.3 (1.6-2.3) mg/dL Total Bilirubin 0.6 (0.2-1.3) mg/dL AST 23 (17-59) U/L ALT 24 (21-72) U/L Alkaline Phosphatase 124 (38-126) U/L Total Creatine Kinase 32 L (55-170) U/L CK-MB (CK-2) 0.5 (0.0-2.4) ng/mL CK-MB (CK-2) Rel Index 1.6 Troponin I <0.012 (0.000-0.034) ng/mL Total Protein 6.9 (6.3-8.2) g/dL Albumin 3.8 (3.5-5.0) g/dL 10/15/17 Range/Units 07:31 WBC (3.8-10.6) k/uL RBC (4.30-5.90) m/uL Hgb (13.0-17.5) gm/dL Hct (39.0-53.0) % MCV (80.0-100.0) fL MCH (25.0-35.0) pg MCHC (31.0-37.0) g/dL RDW (11.5-15.5) % Plt Count (150-450) k/uL Neutrophils % % Lymphocytes % % Monocytes % % Eosinophils % % Basophils % % Neutrophils # (1.3-7.7) k/uL Lymphocytes # (1.0-4.8) k/uL Monocytes # (0-1.0) k/uL Eosinophils # (0-0.7) k/uL Basophils # (0-0.2) k/uL PT 9.7 (9.0-12.0) sec INR 1.0 (<1.2) APTT 25.2 (22.0-30.0) sec Sodium (137-145) mmol/L Potassium (3.5-5.1) mmol/L Chloride (98-107) mmol/L Carbon Dioxide (22-30) mmol/L Anion Gap mmol/L BUN (9-20) mg/dL Creatinine (0.66-1.25) mg/dL Est GFR (MDRD) Af Amer (>60 ml/min/1.73 sqM) Est GFR (MDRD) Non-Af (>60 ml/min/1.73 sqM) Glucose (74-99) mg/dL Calcium (8.4-10.2) mg/dL Magnesium (1.6-2.3) mg/dL Total Bilirubin (0.2-1.3) mg/dL AST (17-59) U/L ALT (21-72) U/L Alkaline Phosphatase (38-126) U/L Total Creatine Kinase (55-170) U/L CK-MB (CK-2) (0.0-2.4) ng/mL CK-MB (CK-2) Rel Index Troponin I (0.000-0.034) ng/mL Total Protein (6.3-8.2) g/dL Albumin (3.5-5.0) g/dL - Radiology Data Radiology results: image reviewed (Chest x-ray shows no acute process) Disposition Clinical Impression: Chest pain Disposition: ADMITTED IP TO THIS [facility] Referrals: Derrell Cordova DO [Primary Care Provider] - 1-2 days Decision Time: 09:28
[2017-10-15 07:48] LABS: Basophils % (A) 1 %; Eosinophils # (A) 0.4 k/uL (0-0.7); Eosinophils % (A) 7 %; HCT 40.9 % (39.0-53.0); HGB 13.5 gm/dL (13.0-17.5); Lymphocytes # (A) 1.8 k/uL (1.0-4.8); Lymphocytes % (A) 31 %; MCH 32.3 pg (25.0-35.0); MCHC 32.9 g/dL (31.0-37.0); MCV 98.2 fL (80.0-100.0); Mean Platelet Volume 8.7; Monocytes # (A) 0.5 k/uL (0-1.0); Monocytes % (A) 9 %; Neutrophils # (A) 2.9 k/uL (1.3-7.7); Neutrophils % (A) 50 %; Platelet Count 211 k/uL (150-450); RBC 4.16 m/uL (4.30-5.90); RDW 14.6 % (11.5-15.5); WBC 5.8 k/uL (3.8-10.6)
[2017-10-15 07:58] LABS: Partial Thromboplastin Time 25.2 sec (22.0-30.0); Prothrombin Time 9.7 sec (9.0-12.0)
[2017-10-15 08:09] LABS: Albumin 3.8 g/dL (3.5-5.0); Calcium 9.4 mg/dL (8.4-10.2); Magnesium 2.3 mg/dL (1.6-2.3); Total Bilirubin 0.6 mg/dL (0.2-1.3); Total Protein 6.9 g/dL (6.3-8.2)
--- NOTE | 2017-10-15 08:09 | XR ---
EXAMINATION TYPE: XR chest 2V DATE OF EXAM: 10/15/2017 HISTORY: Chest Pain. REFERENCE: Previous study dated 10/11/2017. FINDINGS: Lung volumes are prominent. The lungs are clear. Pleural space are clear. The heart is not enlarged. IMPRESSION: NO ACUTE INTRATHORACIC ABNORMALITY.
[2017-10-15 08:41] LABS: Potassium 4.2 mmol/L (3.5-5.1)
[2017-10-15 08:46] LABS: Creatine Kinase 32 U/L (55-170)
[2017-10-15 08:58] LABS: Creatine Kinase MB 0.5 ng/mL (0.0-2.4); Troponin I <0.012 ng/mL (0.000-0.034)
[2017-10-15] MEDS ORDERED: NITROGLYCERIN SL TABS 0.4 MG TAB SUBLINGUAL PRN (09:28)
--- NOTE | 2017-10-15 11:12 | P.CRDCN ---
History of Present Illness Consult date: 10/15/17 Reason for Consult (text): Chest pain History of present illness: Mr. Mckeon is a 77-year-old gentleman who came to the emergency room again with chest pain. His and was just recently discharged from the hospital after being admitted with chest pain which were felt to be atypical pain. EKG this patient has a intermittent chest discomfort for last 24 hours the pain is in the substernal area which comes and goes pa denies any nausea vomiting or sweatingnd cardiac enzymes were normal. This patient has a history of for renal cancer with nephrectomy and patient also has a history of metastasis to the sternum. 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 History of Any Multi-Drug Resistant Organisms: None Reported Past Surgical History: Heart Catheterization, Orthopedic Surgery Additional Past Surgical History / Comment(s): Left nephrectomy 2015, RT HAND 2ND DIGIT LOST TOP OF FINGER IN CRUSHING INJURY, colonoscopy, 2 normal cardiac caths. Past Anesthesia/Blood Transfusion Reactions: No Reported Reaction Past Psychological History: Depression Smoking Status: Former smoker Past Alcohol Use History: None Reported Past Drug Use History: Marijuana - Past Family History Father Family Medical History: Cancer, Hypertension, Myocardial Infarction ([place]) Additional Family Medical History / Comment(s): SKIN CANCER Mother Family Medical History: Cancer Additional Family Medical History / Comment(s): breast cancer - throat cancer Sister(s) Family Medical History: Cancer Additional Family Medical History / Comment(s): SKIN CANCER Medications and Allergies Home Medications Medication Instructions Recorded Confirmed Type Votrient Pazopanib 200mg 600 mg PO DAILY 08/20/17 10/15/17 History Aspirin EC [Ecotrin] 325 mg PO HS 10/08/17 10/15/17 History Hydrochlorothiazide 12.5 mg PO HS 10/08/17 10/15/17 History Pravastatin Sodium [Pravachol] 20 mg PO HS 10/08/17 10/15/17 History Metoprolol Tartrate 25 mg PO BID 10/12/17 10/15/17 History Tamsulosin HCl [Flomax] 0.4 mg PO DAILY 10/12/17 10/15/17 History Allergies Allergy/AdvReac Type Severity Reaction Status Date / Time atorvastatin calcium Allergy Unknown Verified 10/15/17 08:59 [From Lipitor] clindamycin Allergy Unknown Verified 10/15/17 08:59 Physical Exam Vitals: Vital Signs Temp Pulse Resp BP Pulse Ox 10/15/17 10:09 97.1 F L 57 L 16 148/75 98 10/15/17 09:42 50 L 18 127/74 98 10/15/17 08:36 50 L 18 147/82 99 10/15/17 08:07 54 L 18 156/84 100 10/15/17 07:22 97.9 F 10/15/17 07:20 62 18 182/91 99 Intake and Output 10/14/17 10/15/17 10/15/17 22:59 06:59 14:59 Other: Weight 58.06 kg Patient Weight 10/16/17 06:59 Weight 58.06 kg Patient's vital signs are reviewed. Head ENT examination is negative Neck is supple there is no increase in jugular venous pressure noted. The carotid pulses are felt there is no bruit. Chest is symmetrical. Heart PMI is not felt. Us and second heart sounds are normal. No significant murmurs are noted. Lungs are clinically clear to auscultation and percussion. Abdomen is soft. Liver and spleen are not enlarged. We'll sounds are heard. Extremities there is no evidence of any leg edema. Peripheral pulses since are 2+. EKG shows normal sinus rhythm without any acute ST-T changes. Results 10/15/17 07:31 10/15/17 07:31 Cardiac Enzymes 10/15/17 10/15/17 Range/Units 07:31 07:31 AST 23 (17-59) U/L CK-MB (CK-2) 0.5 (0.0-2.4) ng/mL Troponin I <0.012 (0.000-0.034) ng/mL Coagulation 10/15/17 Range/Units 07:31 PT 9.7 (9.0-12.0) sec APTT 25.2 (22.0-30.0) sec CBC 10/15/17 Range/Units 07:31 WBC 5.8 (3.8-10.6) k/uL RBC 4.16 L (4.30-5.90) m/uL Hgb 13.5 (13.0-17.5) gm/dL Hct 40.9 (39.0-53.0) % Plt Count 211 (150-450) k/uL Comprehensive Metabolic Panel 10/15/17 Range/Units 07:31 Sodium 140 (137-145) mmol/L Potassium 4.2 (3.5-5.1) mmol/L Chloride 105 (98-107) mmol/L Carbon Dioxide 24 (22-30) mmol/L BUN 33 H (9-20) mg/dL Creatinine 1.44 H (0.66-1.25) mg/dL Glucose 91 (74-99) mg/dL Calcium 9.4 (8.4-10.2) mg/dL AST 23 (17-59) U/L ALT 24 (21-72) U/L Alkaline Phosphatase 124 (38-126) U/L Total Protein 6.9 (6.3-8.2) g/dL Albumin 3.8 (3.5-5.0) g/dL Current Medications Generic Name Dose Route Start Last Admin Trade Name Freq PRN Reason Stop Dose Admin Aminophylline 100 mg 10/15/17 11:05 Aminophylline IV ONCE PRN Patient Response Aspirin 325 mg 10/16/17 09:00 Aspirin PO DAILY JAY JAY Nitroglycerin 1 inch 10/15/17 12:00 Nitro-Bid Oint TOPICAL Q6HR JAY JAY Nitroglycerin 0.4 mg 10/15/17 09:28 Nitrostat SUBLINGUAL Q5M PRN Chest Pain Regadenoson 0.4 mg 10/15/17 11:05 Lexiscan IV 10/15/17 11:06 ONCE ONE Intake and Output 10/14/17 10/15/17 10/15/17 22:59 06:59 14:59 Other: Weight 58.06 kg Patient Weight 10/16/17 06:59 Weight 58.06 kg 10/15/17 07:31 10/15/17 07:31 EKG Interpretations (text) EKG shows normal sinus rhythm without any acute ischemic changes Assessment and Plan Assessment: This basis chest pains are suggestive of atypical angina. His and cardiac enzymes are normal. We will do stress test to rule out any significant ischemia. Medical medical therapy is recommended.
[2017-10-15] MEDS: NITROGLYCERIN OINT 1 INCH/GM PACKET TOPICAL SCH ×3 (12:16→23:20)
[2017-10-15 13:28] LABS: Creatine Kinase 28 U/L (55-170)
[2017-10-15 13:41] LABS: Creatine Kinase MB 0.6 ng/mL (0.0-2.4); Troponin I <0.012 ng/mL (0.000-0.034)
--- NOTE | 2017-10-15 22:12 | HP ---
HISTORY AND PHYSICAL DATE OF SERVICE: 10/15/2017. CHIEF COMPLAINT: Chest pain. The patient is a 77-year-old male patient with a history of angina, hypertension, hyperlipidemia, presented to ED with a complaint of chest pain. Patient was recently discharged from the hospital after being admitted for chest pain, which was felt to be the patient was felt at that time to be atypical chest pain. The patient complained of intermittent chest discomfort since discharge mostly in the substernal area and it is associated with some nausea and vomiting or sweating. The patient symptoms were happening every day and decided to come to the ED. PAST MEDICAL HISTORY: 1. Hypertension. 2. Hyperlipidemia. 3. History of chronic kidney disease stage 2. 4. Benign prostatic hypertrophy. 5. Chronic low back pain. 6. Arthritis. 7. Gout. 8. Gastroesophageal reflux disease. 9. Chest pain and angina. 10.Left renal cancer with nephrectomy and mets to lungs and sternum. PAST SURGICAL HISTORY: Significant for heart catheterization and left nephrectomy in 2016, right hand 2nd digit injury, colonoscopy, and 2 normal cardiac catheterizations. SOCIAL HISTORY: Patient uses marijuana, but is a former smoker, but no history of IV drug abuse or alcohol abuse. FAMILY HISTORY: Family history significant for history of skin cancer, hypertension, myocardial infarction in father and history of breast cancer and throat cancer in mother and skin cancer in sister. MEDICATIONS: Patient is on: Votrient 600 mg p.o. daily, aspirin 325 mg p.o. q.h.s. Chlorothiazide 12.5 mg p.o. q.h.s., Pravachol 20 mg p.o. q.h.s., metoprolol 25 mg p.o. b.i.d., Flomax 0.4 mg p.o. daily. ALLERGIC: To LIPITOR AND CLINDAMYCIN. REVIEW OF SYMPTOMS: Constitutional: The patient denies any fevers or fever or chills. HEENT denies any deafness or vision loss. Respiratory denies any shortness of breath or wheezing. Cardiovascular as above. GI: Does give history of nausea and vomiting. GENITOURINARY: No hematuria, no dysuria. Extremities: No edema or swelling. Skin: Denies any pigmentations or rashes. Central nervous system: Denies any dizziness, lightheadedness. MUSCULOSKELETAL: Denies any joint or muscle swelling or deformity. The rest of 14-point review of system is unremarkable. PHYSICAL EXAMINATION: Patient is awake, alert, oriented x3. He is in no acute distress. Vital signs: Temperature 97.1, pulse 57, respirations 16, blood pressure 148/75, O2 sats are 98. HEENT: Atraumatic, normocephalic. Pupils equal and react to light. Extraocular movements are intact. Buccal mucosa moist. NECK: Supple. No goiter or lymphadenopathy. JVD is negative. No carotid bruit heard. Lungs are clear to auscultation. No rales or wheezes. Heart is regular rhythm without murmurs or gallops. ABDOMEN: Soft, nontender, nondistended. Bowel sounds positive. EXTREMITIES: No edema, clubbing or cyanosis. Neurological examination cranial nerves 2-12 grossly intact. No gross motor or sensory deficit. Skin is warm, dry and intact. Lymphatic system: Patient has no cervical or axillary lymph node enlargement. LAB: On EKG patient has no acute ST-T wave changes. Lab CBC, white blood count 5.8, hemoglobin 13.5, hematocrit 40.9, and platelet count of 211. Chemical profile sodium 140, potassium 4.2, chloride 105, bicarb 24, BUN 33, creatinine 1.44, glucose 91. ASSESSMENT: 1. Chest pain, rule out acute coronary syndrome. 2. Acute on chronic renal injury. 3. Hypertension. 4. Hyperlipidemia. 5. Gastroesophageal reflux disease. 6. History of angina, chest pain. 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 Check 2D echo. Cardiology is recommending stress test to rule out cardiac etiology. The patient is on IV fluids. Monitor electrolytes. Monitor CBC, renal function, and resume all home medications. MMODL / IJN: [id number] /
[2017-10-15 22:38] LABS: Creatine Kinase 26 U/L (55-170)
[2017-10-15 22:51] LABS: Creatine Kinase MB 0.5 ng/mL (0.0-2.4); Troponin I <0.012 ng/mL (0.000-0.034)
[2017-10-16 04:50] LABS: Cholesterol 141 mg/dL (<200); HDL Cholesterol 46 mg/dL (40-60); LDL Cholesterol,Calculated 79 mg/dL (0-99); Triglycerides 81 mg/dL (<150)
[2017-10-16] MEDS ORDERED: REGADENOSON 0.4 MG/5 ML SYRINGE IV ONE (06:00)
[2017-10-16] MEDS ORDERED: AMINOPHYLLINE 500 MG/20 ML VIAL IV PRN (06:00)
[2017-10-16 08:33] VITALS: RESP 16
[2017-10-16] MEDS ORDERED: ASPIRIN 325 MG TAB PO SCH (09:00)
[2017-10-16] MEDS: NITROGLYCERIN OINT 1 INCH/GM PACKET TOPICAL SCH ×2 (09:23→12:30)
--- NOTE | 2017-10-16 10:33 | EST ---
EXERCISE STRESS AGE: 77 SEX: M HT: 67" WT: 128 PROTOCOL: Lexiscan Cardiolite Stress Test HEART RATE REST: 58 BLOOD PRESSURE REST: 137/67 MAXIMUM HEART RATE ACHIEVED: 107 MAXIMUM BLOOD PRESSURE: 139/71 85% MPHR: 122 100% MPHR: 144 INDICATIONS: Chest pain. CLINICAL INFORMATION: STRESS DATA: Pretesting physical examination showed heart rate of 58, pressure is 137/67 mmHg. Baseline EKG showed sinus rhythm; 0.4 mg of Lexiscan was given to the patient over 15 seconds per protocol. The max heart rate was 107 beats per minute and maximum pressure was 139/71 mmHg. Clinically, the patient did not have any symptoms and the EKG did not show any significant ST or T-wave abnormalities consistent with ischemia. CONCLUSION: 1. Nondiagnostic stress test in response to Lexiscan. 2. Please follow up on the Cardiolite portion on a separate report from the Radiology Department. MMODL / IJN: [id number] /
--- NOTE | 2017-10-16 10:59 | NM ---
EXAMINATION TYPE: NM stress lexiscan cardiolite DATE OF EXAM: 10/16/2017 COMPARISON: NONE HISTORY: Chest pain TECHNIQUE: After the intravenous administration of 11.2 mCi Tc 99m Sestamibi - Cardiolite resting SP ECT images acquired 50 minutes post injection. The patient received 0.4mg Lexiscan, 29 mCi Tc 99m Sestamibi - Stress images obtained 55 minutes post injection FINDINGS: Review of stress and rest SPECT images demonstrates some mild decreased reaffirms uptake along the in ferior wall towards apex on stress and rest images, there is also got activity noted. Gated analysis shows normal wall motion with an estimated left ventricular ejection fraction of 56 %. IMPRESSION: No scintigraphic evidence for reversible ischemia. Decreased uptake along the inferior wall towards a pex may be technical.
[2017-10-16] MEDS ORDERED: TAMSULOSIN 0.4 MG CAP.ER.24H PO SCH ×2 (11:15→21:00)
[2017-10-16] MEDS ORDERED: METOPROLOL TARTRATE 25 MG TAB PO SCH (11:15)
[2017-10-16 11:37] VITALS: BP 130/72; PULSE 67; TEMP 97.7
--- NOTE | 2017-10-16 12:43 | P.PN ---
Subjective Progress Note Date: 10/16/17 Mr. Mckeon is a pleasant 77-year-old male past medical history significant for hypertension, left renal cancer with nephrectomy with mets to sternum and lungs, dyslipidemia and gastroesophageal reflux disease. He is being seen today in follow up for symptoms of chest pain. He denies any further episodes of chest pain. Telemetry tracings have been unremarkable. He underwent Lexiscan stress tests reveals no evidence of reversible cardiac ischemia with decreased uptake along the inferior wall towards the apex consistent with gut activity seen on rest and stress images. Objective - Vital Signs Vital signs: Vital Signs Temp 98.1 F 10/16/17 08:00 Pulse 61 10/16/17 08:00 Resp 16 10/16/17 08:00 BP 118/98 10/16/17 08:00 Pulse Ox 98 10/16/17 08:00 Intake & Output 10/15/17 10/16/17 10/16/17 18:59 06:59 18:59 Intake Total 340 200 Balance 340 200 Weight 58.06 kg Intake: Oral 340 200 Other: Voiding Method Toilet Toilet Urinal Urinal # Voids 1 1 1 # Bowel Movements 0 - Exam GENERAL: Well-appearing, well-nourished and in no acute distress. NECK: Supple without JVD or thyromegaly. LUNGS: Breath sounds clear to auscultation bilaterally. Respiration equal and unlabored. No wheezes, rales or rhonchi. HEART: Regular rate and rhythm without murmurs, rubs or gallops. S1 and S2 heard. EXTREMITIES: Normal range of motion, no edema. No clubbing or cyanosis. Peripheral pulses intact and strong. - Labs CBC & Chem 7: 10/15/17 07:31 10/15/17 07:31 Labs: Abnormal Lab Results - Last 24 Hours (Table) 10/15/17 10/15/17 Range/Units 12:50 21:40 Total Creatine Kinase 28 L 26 L (55-170) U/L Assessment and Plan Assessment: ASSESSMENT 1. Chest pain, atypical 2. Hypertension 3. Dyslipidemia 4. Renal cancer with metastasis to the sternum and lungs s/p left nephrectomy PLAN Mr. Mckeon is stable from a cardiac perspective to be discharged home with a negative Lexiscan stress test. Follow up with Dr. Duran in 2-3 weeks. Nurse Practitioner note has been reviewed, I agree with a documented findings and plan of care. Patient was seen and examined.
--- NOTE | 2017-10-30 07:25 | DS ---
DISCHARGE SUMMARY DATE OF ADMISSION: 10/15/2017 DATE OF DISCHARGE: 10/16/2017. ADMISSION DIAGNOSES: 1. Chest pain, rule out acute coronary artery syndrome. 2. Chronic renal failure. 3. Hypertension. 4. Hyperlipidemia. 5. Gastroesophageal reflux disease. 6. History of angina and chest pain. BRIEF HISTORY: This was a 77-year-old male patient who was recently discharged from the hospital after being admitted for chest pain, which at that time was felt to be atypical chest pain, presented again with intermittent chest pain since discharge in the substernal area associated with diaphoresis and vomiting. According to patient, it started happening every day and was getting progressively worse, so he decided to come to ER. PAST MEDICAL HISTORY: 1. Hypertension. 2. Hyperlipidemia. 3. Chronic kidney disease stage II. 4. BPH. 5. Chronic low back pain. 6. Arthritis. 7. Gout. 8. GERD. 9. Chest pain and angina. 10.Left renal cancer with nephrectomy and mets to lungs and sternum. MEDICATIONS: 1. Votrient 600 mg p.o. daily. 2. Aspirin 325 daily. 3. Chlorothiazide 12.5 mg daily. 4. Pravachol 20 mg daily. 5. Metoprolol 25 mg b.i.d. 6. Flomax 0.4 mg daily. PHYSICAL EXAMINATION: CONSTITUTIONAL: Patient was awake, alert, oriented x3. No acute distress. VITAL SIGNS: Temperature of 97.1, pulse 67, respirations 16, blood pressure 148/75, O2 saturation 98%. HEENT: Atraumatic, normocephalic. Pupils equal and react to light. Extraocular movements intact. Buccal mucosa moist. NECK: Supple. No goiter, no lymphadenopathy. JVD is negative. No carotid bruit heard. Lungs are clear to auscultation. No rales, rhonchi or wheezes. HEART: Regular rate and rhythm without gallop rhythm. ABDOMEN: Soft, nontender, and nondistended. Bowel sounds positive. EXTREMITIES: No edema, clubbing, cyanosis. Neurological exam is unremarkable. LABS: Done on admission show CBC, white blood count 5.8, hemoglobin 13.5, hematocrit 40.9, platelet count of 211. Chemical profile, sodium 140, potassium 4.2, chloride 105, bicarb 24, BUN 33, creatinine.4, and glucose 91. EKG showed no acute ST-T wave changes. BRIEF HOSPITAL COURSE: Patient was admitted to telemetry. Cardiac enzymes and EKGs were monitored, which remained unchanged. Cardiology was consulted and stress testing was recommended. Patient underwent Lexiscan stress test, which was negative for any reversible ischemia. Patient remained stable. He did not have any complications. Cardiology recommended to continue all current medications and follow up post discharge. Patient was then discharged in a stable condition. DISCHARGE MEDICATIONS: 1. Aspirin 325 mg daily. 2. Hydrochlorothiazide 12.5 mg daily. 3. Metoprolol 25 mg b.i.d. 4. Pravachol 20 mg q.h.s. 5. Flomax 0.4 mg q. daily. 6. Votrient 600 mg p.o. daily. MMSWAPNA / ARNALDO: [id number] /
== END 2017-10-16 01:15 | disposition home or self-care (01) ==
LOC: EC 07:14 → 6SEL 09:28 → 3OBS 20:30
PROVIDERS: ADMIT Internal Medicine; ATTEND Internal Medicine
DX: R07.89 Other chest pain (principal); N17.9 Acute kidney failure, unspecified; I12.9 Hypertensive chronic kidney disease with stage 1 through stage 4 chronic kidney disease, or unspecified chronic kidney disease; N18.2 Chronic kidney disease, stage 2 (mild); C78.00 Secondary malignant neoplasm of unspecified lung; N40.0 Benign prostatic hyperplasia without lower urinary tract symptoms; C79.51 Secondary malignant neoplasm of bone; Z85.528 Personal history of other malignant neoplasm of kidney; Z90.5 Acquired absence of kidney; E78.5 Hyperlipidemia, unspecified; K21.9 Gastro-esophageal reflux disease without esophagitis; M54.5 Low back pain; G89.29 Other chronic pain; I20.9 Angina pectoris, unspecified; M19.90 Unspecified osteoarthritis, unspecified site; M10.9 Gout, unspecified; Z79.82 Long term (current) use of aspirin; Z79.899 Other long term (current) drug therapy; Z88.1 Allergy status to other antibiotic agents; Z88.8 Allergy status to other drugs, medicaments and biological substances; Z87.891 Personal history of nicotine dependence; Z82.49 Family history of ischemic heart disease and other diseases of the circulatory system; Z80.3 Family history of malignant neoplasm of breast; Z80.0 Family history of malignant neoplasm of digestive organs; Z80.8 Family history of malignant neoplasm of other organs or systems; R11.2 Nausea with vomiting, unspecified
CPT/HCPCS: 99285 ×2; 36415; 94760; 93005; 93017; 80061; 80053; 82550; 82553; 83735; 84484; 85025; 85610; 85730; 71046; 78452; G0378 ×3; A9500; J2785

== ENCOUNTER 2018-01-19 16:09 | Emergency (ER) | payer OTHER ==
--- NOTE | 2018-01-19 17:19 | ED ---
General Adult HPI - General Chief complaint: Fall Stated complaint: Facial injury Time Seen by Provider: 01/19/18 17:03 Source: patient, RN notes reviewed Mode of arrival: ambulatory Limitations: no limitations - History of Present Illness Initial comments: Patient 77-year-old male presenting to the emergency room today with a chief complaint of a trip and fall that occurred just prior to arrival. He states he was walking outside in a parking lot and did not realize that the wound had blown over a sign. He states he tripped over a fallen forward. States he tried to use his left hand break the fall. This material with pain to the left wrist with certain movements of extension. Patient admits that it did break his dentures and he has a cut and abrasion to the upper lip. Patient states his tetanus is up-to-date. He states he is not on any blood thinners. He denies any other head injury or loss of consciousness. Denies any other complaints. Patient denies any recent fever, chills, shortness of breath, chest pain, back pain, abdominal pain, nausea or vomiting, numbness or tingling, headaches or visual changes, or any other complaints. - Related Data Home Medications Medication Instructions Recorded Confirmed Votrient Pazopanib 200mg 600 mg PO DAILY 08/20/17 10/15/17 Aspirin EC [Ecotrin] 325 mg PO HS 10/08/17 10/15/17 Hydrochlorothiazide 12.5 mg PO HS 10/08/17 10/15/17 Pravastatin Sodium [Pravachol] 20 mg PO HS 10/08/17 10/15/17 Metoprolol Tartrate 25 mg PO BID 10/12/17 10/15/17 Tamsulosin HCl [Flomax] 0.4 mg PO DAILY 10/12/17 10/15/17 Allergies Allergy/AdvReac Type Severity Reaction Status Date / Time atorvastatin calcium Allergy Unknown Verified 01/19/18 16:17 [From Lipitor] clindamycin Allergy Unknown Verified 01/19/18 16:17 Review of Systems ROS Statement: Those systems with pertinent positive or pertinent negative responses have been documented in the HPI. ROS Other: All systems not noted in ROS Statement are negative. Past Medical History Past Medical History: Cancer, Chest Pain / Angina, GERD/Reflux, Hyperlipidemia, Hypertension, Osteoarthritis (OA), Prostate Disorder, Renal Disease Additional Past Medical History / Comment(s): L renal cancer with nephrectomy/ mets L lung and pt states spot on sternum is gone now-currently taking oral chemotherapy, chronic renal failure stage II, lower leg edema thought to be due to HTN medications, BPH, chronic low back pain, arthritis vs gout r great toe. 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 Past Anesthesia/Blood Transfusion Reactions: No Reported Reaction Past Psychological History: Depression Smoking Status: Former smoker Past Alcohol Use History: None Reported Past Drug Use History: Marijuana - Past Family History Father Family Medical History: Cancer, Hypertension, Myocardial Infarction ([place]) Additional Family Medical History / Comment(s): SKIN CANCER Mother Family Medical History: Cancer Additional Family Medical History / Comment(s): breast cancer - throat cancer Sister(s) Family Medical History: Cancer Additional Family Medical History / Comment(s): SKIN CANCER General Exam - General Exam Comments Initial Comments: General: The patient is awake and alert, in no distress, and does not appear acutely ill. Eye: Pupils are equal, round and reactive to light, extra-ocular movements are intact. No nystagmus. There is normal conjunctiva bilaterally. No signs of icterus. Ears, nose, mouth and throat: There are moist mucous membranes and no oral lesions. Neck: The neck is supple, there is no tenderness or JVD. Cardiovascular: There is a regular rate and rhythm. No murmur, rub or gallop is appreciated. Respiratory: Lungs are clear to auscultation, respirations are non-labored, breath sounds are equal. No wheezes, stridor, rales, or rhonchi. Musculoskeletal: Full range of motion of the left wrist. Full range motion of the left elbow and shoulder. Full range motional all other extremities. No bony tenderness on exam. Strength 5/5. Sensation intact. Pulses equal bilaterally 2+. Neurological: A&O x 3. CN II-XII intact, There are no obvious motor or sensory deficits. Coordination appears grossly intact. Speech is normal. Skin: Patient does have superficial abrasion over the upper lip. No active bleeding. Psychiatric: Cooperative, appropriate mood & affect, normal judgment. Limitations: no limitations Course Vital Signs 01/19/18 16:16 Temperature 98.7 F Pulse Rate 72 Respiratory 18 Rate Blood Pressure 155/73 O2 Sat by Pulse 100 Oximetry Medical Decision Making - Medical Decision Making 77-year-old presenting after a fall. Does have abrasion to the upper lip. Nothing that is suturable. No active bleeding. Tetanus is up-to-date. Patient has no bony tenderness to the left wrist on exam. Shows full range of motion. he will be discharged advised return if any symptoms increase worsen. Disposition Clinical Impression: Fall, Lip abrasion, Wrist sprain Disposition: HOME SELF-CARE Condition: Good Instructions: Abrasion (ED) Additional Instructions: Please use medication as discussed. Please follow-up with family doctor in the next 2 days of symptoms have not improved. Please return to emergency room if the symptoms increase or worsen or for any other concerns. Is patient prescribed a controlled substance at d/c from ED?: No Referrals: [facility],Clinic [Primary Care Provider] - 1-2 days Time of Disposition: 17:18
[2018-01-19 17:32] VITALS: BP 150/70; PULSE 78; RESP 16; TEMP 97.8
== END 2018-01-19 17:31 | disposition home or self-care (01) ==
LOC: EC 16:09
DX: S63.502A Unspecified sprain of left wrist, initial encounter (principal); S00.511A Abrasion of lip, initial encounter; C78.02 Secondary malignant neoplasm of left lung; E78.5 Hyperlipidemia, unspecified; I10 Essential (primary) hypertension; M19.90 Unspecified osteoarthritis, unspecified site; N40.0 Benign prostatic hyperplasia without lower urinary tract symptoms; Z87.891 Personal history of nicotine dependence; Z79.82 Long term (current) use of aspirin; Z79.899 Other long term (current) drug therapy; Z88.1 Allergy status to other antibiotic agents; Z88.8 Allergy status to other drugs, medicaments and biological substances; Z85.528 Personal history of other malignant neoplasm of kidney; Z90.5 Acquired absence of kidney; W18.09XA Striking against other object with subsequent fall, initial encounter; Y93.01 Activity, walking, marching and hiking; Y92.481 Parking lot as the place of occurrence of the external cause
CPT/HCPCS: 99283

== ENCOUNTER 2018-01-20 11:11 | Emergency (ER) | payer OTHER ==
[2018-01-20 11:46] VITALS: BP 117/61; PULSE 58; RESP 18; TEMP 97.5
--- NOTE | 2018-01-20 12:32 | ED ---
General Adult HPI - General Chief complaint: Wound/Laceration Stated complaint: tooth pain Time Seen by Provider: 01/20/18 12:04 Source: patient, RN notes reviewed Mode of arrival: ambulatory Limitations: no limitations - History of Present Illness Initial comments: 77-year-old male presents to the emergency department for a chief complaint of lip laceration times one day. Patient states that he was seen here yesterday. Patient states that yesterday the wind blew over a sign at [facility] and he tripped over it falling on his hands and knees and hit his face against the ground. Patient denies any loss of consciousness or dizziness. Patient denies any headaches nausea or vomiting. Patient states he has pain in his upper lip. Patient states there is a laceration there which was observed yesterday and was not suturable. Patient states he is on chemotherapy and is concerned for infection so he return to the emergency Department. Patient also complains of pain in his left wrist. Patient denies pain anywhere else. He denies any shortness of breath, chest pain, abdominal pain. - Related Data Home Medications Medication Instructions Recorded Confirmed Votrient Pazopanib 200mg 600 mg PO HS 08/20/17 01/19/18 Aspirin EC [Ecotrin] 325 mg PO HS 10/08/17 01/19/18 Hydrochlorothiazide 12.5 mg PO HS 10/08/17 01/19/18 Pravastatin Sodium [Pravachol] 20 mg PO HS 10/08/17 01/19/18 Metoprolol Tartrate 25 mg PO BID 10/12/17 01/19/18 Tamsulosin HCl [Flomax] 0.4 mg PO HS 10/12/17 01/19/18 Previous Rx's Medication Instructions Recorded Penicillin V Potassium [Pen Vee K] 500 mg PO Q6H 5 Days tablet 01/20/18 Allergies Allergy/AdvReac Type Severity Reaction Status Date / Time atorvastatin calcium Allergy Unknown Verified 01/20/18 11:46 [From Lipitor] clindamycin Allergy Unknown Verified 01/20/18 11:46 Review of Systems ROS Statement: Those systems with pertinent positive or pertinent negative responses have been documented in the HPI. ROS Other: All systems not noted in ROS Statement are negative. Past Medical History Past Medical History: Cancer, Chest Pain / Angina, GERD/Reflux, Hyperlipidemia, Hypertension, Osteoarthritis (OA), Prostate Disorder, Renal Disease Additional Past Medical History / Comment(s): L renal cancer with nephrectomy/ mets L lung and pt states spot on sternum is gone now-currently taking oral chemotherapy, chronic renal failure stage II, lower leg edema thought to be due to HTN medications, BPH, chronic low back pain, arthritis vs gout r great toe. 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 Past Anesthesia/Blood Transfusion Reactions: No Reported Reaction Past Psychological History: Depression Smoking Status: Former smoker Past Alcohol Use History: None Reported Past Drug Use History: Marijuana - Past Family History Father Family Medical History: Cancer, Hypertension, Myocardial Infarction ([place]) Additional Family Medical History / Comment(s): SKIN CANCER Mother Family Medical History: Cancer Additional Family Medical History / Comment(s): breast cancer - throat cancer Sister(s) Family Medical History: Cancer Additional Family Medical History / Comment(s): SKIN CANCER General Exam Limitations: no limitations General appearance: alert, in no apparent distress Head exam: Present: atraumatic, normocephalic, normal inspection Eye exam: Present: normal appearance, PERRL, EOMI. Absent: scleral icterus, conjunctival injection, nystagmus, periorbital swelling Pupils: Present: normal accommodation ENT exam: Present: normal oropharynx (Uvula midline), TM's normal bilaterally, normal external ear exam (Negative raccoon sign, negative Victor sign.), other ( There is a 0.5 cm laceration to the superior lip on interior. There is no external lip laceration. Laceration does not penetrate through the lip. Lip is not suturable. The lip is also swollen. Aspiration is no longer bleeding.) Neck exam: Present: normal inspection, full ROM. Absent: tenderness, meningismus, lymphadenopathy Respiratory exam: Present: normal lung sounds bilaterally. Absent: respiratory distress, wheezes, rales, rhonchi, stridor Cardiovascular Exam: Present: regular rate, normal rhythm, normal heart sounds. Absent: systolic murmur, diastolic murmur, rubs, gallop, clicks Extremities exam: Present: full ROM (Patient has full range of motion of the left wrist.), normal capillary refill (Refill less than 2 seconds of the left hand. Radial pulse 2+), other (Sensation intact in the left upper extremity). Absent: tenderness (Patient has some tenderness to the dorsal wrist. No scaphoid tenderness. No tenderness throughout the hand or fingers.), joint swelling (No swelling noted in the left wrist) Back exam: Present: normal inspection, full ROM. Absent: tenderness Neurological exam: Present: alert, oriented X3, CN II-XII intact, other (GCS 15) Course Vital Signs 01/20/18 11:41 Temperature 97.5 F L Pulse Rate 58 L Respiratory 18 Rate Blood Pressure 117/61 O2 Sat by Pulse 97 Oximetry Medical Decision Making - Medical Decision Making 77-year-old male presents to the emergency department for a chief complaint of laceration to the lip times one day. Patient is not on blood thinners. He is on chemo and is concerned for infection. On exam the lip is not suturable. However there is a small laceration on the anterior of the superior lip. Patient also complains of pain in the left wrist. He has full range of motion but some dorsal wrist tenderness. No scaphoid tenderness. Neurovascular intact in the left upper extremity Patient was offered an x-ray but refused it because he thinks it is just sprained. Wrist was wrapped with an Xavier wrap and he was given ice. He was told to rest ice compress and elevate the left wrist. He was told to ice the lip as well. He was given penicillin for 5 days to prevent any infection in the mouth as his main concern was infection. He was also given a tetanus because he thinks maybe his tetanus wasn't is up-to-date as he thought it was yesterday. He will return to the emergency Department if he notices any worsening symptoms. Otherwise he will follow-up with primary care in 1-2 days. Disposition Clinical Impression: Lip laceration Disposition: HOME SELF-CARE Condition: Good Instructions: RICE Therapy (ED), Wrist Sprain (ED) Additional Instructions: Please take penicillin as directed. Please ice the lip and the wrist every few hours. Remember to rest and elevate and keep the wrist wrapped. Return to the emergency department if you have any worsening symptoms. Otherwise follow-up with primary care in 1-2 days. Prescriptions: Penicillin V Potassium [Pen Vee K] 500 mg PO Q6H 5 Days tablet Is patient prescribed a controlled substance at d/c from ED?: No Referrals: [facility],Clinic [Primary Care Provider] - 1-2 days Time of Disposition: 12:32
[2018-01-20] MEDS ORDERED: DIPH,PERTUS(ACELL)TETVAC-LF 0.5 ML VIAL IM ONE (12:40)
== END 2018-01-20 13:03 | disposition home or self-care (01) ==
LOC: EC 11:11
DX: S01.511D Laceration without foreign body of lip, subsequent encounter (principal); C78.02 Secondary malignant neoplasm of left lung; R40.2412 Glasgow coma scale score 13-15, at arrival to emergency department; M25.532 Pain in left wrist; I12.9 Hypertensive chronic kidney disease with stage 1 through stage 4 chronic kidney disease, or unspecified chronic kidney disease; N18.2 Chronic kidney disease, stage 2 (mild); E78.5 Hyperlipidemia, unspecified; N40.0 Benign prostatic hyperplasia without lower urinary tract symptoms; M19.90 Unspecified osteoarthritis, unspecified site; Z87.891 Personal history of nicotine dependence; Z79.82 Long term (current) use of aspirin; Z79.899 Other long term (current) drug therapy; Z88.1 Allergy status to other antibiotic agents; Z88.8 Allergy status to other drugs, medicaments and biological substances; Z85.528 Personal history of other malignant neoplasm of kidney; Z90.5 Acquired absence of kidney; Z86.79 Personal history of other diseases of the circulatory system; Z23 Encounter for immunization; X39 Exposure to other forces of nature
CPT/HCPCS: 90471; 90715; 99282

== ENCOUNTER → 2018-09-05 | Outpatient (CLI) | payer OTHER ==
--- NOTE | 2018-09-05 15:49 | CT ---
EXAMINATION TYPE: CT sinus wo con DATE OF EXAM: 09/05/2018 COMPARISON: NONE HISTORY: sinus congestion CT DLP: 500.1 mGycm. Automated Exposure Control for Dose Reduction was Utilized. TECHNIQUE: CT scan of the sinuses is performed without contrast, axial images are obtained, coronal r eformatted images are also reviewed. FINDINGS: Maxillary sinuses are well aerated. There is leftward nasal septal deviation and a small le ftward nasal septal spur. Moderate mucosal thickening is seen within the frontal and ethmoid sinuses. Sphenoid sinuses are well aerated. Mastoid air cells are also well aerated. Cerumen is noted within the external auditory canals bilaterally. The right ostiomeatal complex is occluded by mucosal thickening. Right-sided middle nasal turbinate c oncha bullosa is also incidentally seen. No Sreekanth cells are present. Orbits and extraocular muscles appear symmetric. Atherosclerosis is noted of the intracranial vasculature. IMPRESSION: 1. Moderate mucosal thickening within the ethmoid and frontal sinuses with right ostiomeatal occlusio n due to mucosal thickening. 2. Incidentally noted right middle nasal turbinate kathy bullosa. 3. Leftward nasal septal deviation. 4. Incidentally noted cerumen within the external auditory canals bilaterally.
== END | disposition home or self-care (01) ==
LOC: RADCTMAIN 15:27
PROVIDERS: ATTEND Otolaryngology
DX: J34.2 Deviated nasal septum (principal); J32.2 Chronic ethmoidal sinusitis; J32.1 Chronic frontal sinusitis
CPT/HCPCS: 70486

== ENCOUNTER → 2018-09-25 | Outpatient (CLI) | payer OTHER ==
--- NOTE | 2018-09-25 17:05 | CT ---
EXAMINATION TYPE: CT chest wo con DATE OF EXAM: 09/25/2018 COMPARISON: 02/29/2016 HISTORY: Lung cancer and renal cancer. CT DLP: 161.2 mGycm, Automated exposure control for dose reduction was used. CONTRAST: Performed injected with 0 mL of Isovue 300. TECHNIQUE: Axial images were obtained at 5 mm thick sections. Reconstructed images are reviewed on [employer] computer in the coronal plane. FINDINGS: Portion of the thyroid visualized is normal. There is a 0.4 cm punctate density at the right posterior lateral apex. This was present previously. There may be a new density in the posterior medial right apex measuring 0.3 cm. Series 4 image 12. Th ere is interval development of a 0.9 cm lobular density in the anterior lateral left peripheral lung. Series 4 image 27. No enlarged mediastinal or hilar adenopathy is evident. The ascending aorta diameter at the level o f the main pulmonary artery is 3.5 cm. The main pulmonary artery diameter at the bifurcation is 2.6 cm. Mild coronary artery calcification is noted. Limited CT sections are obtained through the upper abdomen. There is been a left nephrectomy. Multipl e surgical clips are in the periaortic region. There appears to be a hydronephrosis of the superior p ole right kidney. This could be a peripelvic cyst. There is 2.3 cm cyst on the posterior lateral supe rior right kidney. IMPRESSIONS: 1. New lobular density with a transverse dimension of 0.9 cm anterior left midlung. Metastatic diseas e should be considered. Workup with PET CT is recommended. 2. Couple of punctate densities at the right apex 1 of which appears to be new, the second present pr eviously and stable.
== END ==
LOC: RADCTMAIN 14:45
PROVIDERS: ATTEND Nurse Practitioner Acute Care
DX: C34.00 Malignant neoplasm of unspecified main bronchus (principal); C78.00 Secondary malignant neoplasm of unspecified lung; R91.8 Other nonspecific abnormal finding of lung field; C64.9 Malignant neoplasm of unspecified kidney, except renal pelvis
CPT/HCPCS: 71250

== ENCOUNTER → 2020-02-26 | Outpatient (CLI) | payer OTHER ==
--- NOTE | 2020-02-26 13:52 | XR ---
EXAMINATION TYPE: XR chest 2V DATE OF EXAM: 02/26/2020 COMPARISON: Prior chest x-ray 10/15/2017, chest CT 09/25/2018 HISTORY: Malignant neoplasm of kidney, bone metastasis TECHNIQUE: Frontal and lateral views of the chest are obtained. FINDINGS: Prominent lung volumes may be indicative of underlying COPD. There is no focal air space o pacity, pleural effusion, or pneumothorax seen. The cardiac silhouette size is within normal limits. The osseous structures are intact. Aorta is dense. There is a spinal curvature. High riding right shoulder may be due to chronic rotator cuff tear. Surgical clips are present in the upper abdomen. IMPRESSION: No acute cardiopulmonary process.
--- NOTE | 2020-02-26 13:54 | XR ---
Right shoulder HISTORY: Malignant neoplasm of kidney, bone metastasis, pain in right shoulder 2 views of the right shoulder, comparison to prior exam 09/13/2013 The right shoulder is high riding. Arthropathy is present at the acromioclavicular joint, likely freddy ohumeral joint. Bone mineralization and alignment are stable, suspect stenosis humeral head. Right ladan ng apex as visualized is normal. IMPRESSION: High riding right shoulder may be indicative of chronic rotator cuff tear. Osteoarthritis .
== END | disposition home or self-care (01) ==
LOC: RADXRMAIN 11:31
PROVIDERS: ATTEND Internal Medicine Hematology & Oncology
DX: M19.011 Primary osteoarthritis, right shoulder (principal); C79.51 Secondary malignant neoplasm of bone; C78.00 Secondary malignant neoplasm of unspecified lung; C64.9 Malignant neoplasm of unspecified kidney, except renal pelvis; I82.812 Embolism and thrombosis of superficial veins of left lower extremity
CPT/HCPCS: 71046

== ENCOUNTER 2020-02-29 01:52 | Inpatient (IN) | payer OTHER, MEDICARE ==
[2020-02-29] MEDS ORDERED: NITROGLYCERIN SL TABS 0.4 MG TAB SUBLINGUAL STA (02:01)
[2020-02-29] MEDS ORDERED: SODIUM CHLORIDE 0.9% 500 ML 500 ML IV STA (02:01)
[2020-02-29] MEDS ORDERED: ASPIRIN 81 MG PO STA (02:01)
--- NOTE | 2020-02-29 02:04 | ED ---
Chest Pain HPI - General Stated Complaint: Chest Pain Time Seen by Provider: 02/29/20 02:01 - History of Present Illness Initial Comments: Kurtis is a pleasant 79-year-old gentleman with a history of renal cancer with known metastases to the sternum and possibly ribs. Patient presents the ER today for evaluation of sudden onset of a sharp pain that radiated from his left chest to his right chest. Was not associated with any diaphoresis shortness of breath or lightheadedness. Pain was severe lasted for approximately 5 minutes and begin improving. Patient reports he's never experienced pain like this in the past. She denies any cardiac history though he does state that he is had cardiac catheterizations in the past he has never had a stent. Believes his last catheterization was sometime around 2002. 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 Patient does state that he has been dealing with a new pain in his right shoulder and right-sided ribs and his oncologist is working him up for possible new bony metastases however this pain was completely unlike what he's been suffering from chronically. - Related Data Home Medications Medication Instructions Recorded Confirmed Votrient Pazopanib 200mg 600 mg PO HS 08/20/17 01/19/18 Aspirin EC [Ecotrin] 325 mg PO HS 10/08/17 01/19/18 Hydrochlorothiazide 12.5 mg PO HS 10/08/17 01/19/18 Pravastatin Sodium [Pravachol] 20 mg PO HS 10/08/17 01/19/18 Metoprolol Tartrate 25 mg PO BID 10/12/17 01/19/18 Tamsulosin HCl [Flomax] 0.4 mg PO HS 10/12/17 01/19/18 Previous Rx's Medication Instructions Recorded Penicillin V Potassium [Pen Vee K] 500 mg PO Q6H 5 Days tablet 01/20/18 Allergies Allergy/AdvReac Type Severity Reaction Status Date / Time atorvastatin calcium Allergy Unknown Verified 02/29/20 02:06 [From Lipitor] clindamycin Allergy Unknown Verified 02/29/20 02:06 Review of Systems ROS Statement: Those systems with pertinent positive or pertinent negative responses have been documented in the HPI. ROS Other: All systems not noted in ROS Statement are negative. EKG Findings - EKG Comments: EKG Findings:: EKG was obtained due to complaint of chest pain, EKG was obtained at 1:58 AM, rate of 66 rhythm is a narrow complex regular sinus, normal axis, normal intervals, VT 184, care assigned 2, QTc is 417 there are no acute ST elevations or depressions no evidence of acute ischemia, infarction or arrhythmia. Past Medical History Past Medical History: Cancer, Chest Pain / Angina, GERD/Reflux, Hyperlipidemia, Hypertension, Osteoarthritis (OA), Prostate Disorder, Renal Disease Additional Past Medical History / Comment(s): L renal cancer with nephrectomy/mets L lung and pt states spot on sternum is gone now-currently taking oral chemotherapy, chronic renal failure stage II, lower leg edema thought to be due to HTN medications, BPH, chronic low back pain, arthritis vs gout r great toe. 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 Past Anesthesia/Blood Transfusion Reactions: No Reported Reaction Past Psychological History: Depression Smoking Status: Former smoker Past Alcohol Use History: None Reported Past Drug Use History: Marijuana - Past Family History Father Family Medical History: Cancer, Hypertension, Myocardial Infarction ([place]) Additional Family Medical History / Comment(s): SKIN CANCER Mother Family Medical History: Cancer Additional Family Medical History / Comment(s): breast cancer - throat cancer Sister(s) Family Medical History: Cancer Additional Family Medical History / Comment(s): SKIN CANCER General Exam - General Exam Comments Initial Comments: Physical Exam GENERAL: Patient is well-developed and well-nourished. Patient is nontoxic and well- hydrated and is in no distress. HENT: Normocephalic, Atraumatic. EYES: PERRL, EOMI PULMONARY: Unlabored respirations. No audible rales rhonchi or wheezing was noted. CARDIOVASCULAR: There is a regular rate and rhythm without any murmurs gallops or rubs. ABDOMEN: Soft and nontender with normal bowel sounds. SKIN: Skin is clear with no lesions or rashes and otherwise unremarkable. : Deferred NEUROLOGIC: Patient is alert and oriented x3. Moving all extremities spontaneously MUSCULOSKELETAL: Normal extremities with adequate strength and full range of motion. No lower extremity swelling or edema. No calf tenderness. PSYCHIATRIC: Normal psychiatric evaluation. Course Vital Signs 02/29/20 02:03 Temperature 97.6 F Pulse Rate 66 Respiratory 15 Rate Blood Pressure 171/91 O2 Sat by Pulse 99 Oximetry Chest Pain MDM - MDM The patient was seen and evaluated history is obtained from patient history is concerning for acute coronary syndrome or cardiac workup was initiated EKG is nonischemic Labs resulted with mildly elevated troponin heparin was initiated patient will be admitted for NSTEMI Disposition Clinical Impression: Acute non-ST elevation myocardial infarction (NSTEMI) Disposition: ADMITTED IP TO THIS HOSP Condition: Serious Referrals: [facility],Clinic [Primary Care Provider] - 1-2 days
[2020-02-29 02:45] LABS: Basophils % (A) 1 %; Eosinophils # (A) 0.4 k/uL (0-0.7); Eosinophils % (A) 5 %; HCT 37.6 % (39.0-53.0); HGB 12.6 gm/dL (13.0-17.5); Lymphocytes # (A) 2.7 k/uL (1.0-4.8); Lymphocytes % (A) 35 %; MCH 30.8 pg (25.0-35.0); MCHC 33.4 g/dL (31.0-37.0); MCV 92.1 fL (80.0-100.0); Mean Platelet Volume 9.5; Monocytes # (A) 0.6 k/uL (0-1.0); Monocytes % (A) 8 %; Neutrophils # (A) 3.9 k/uL (1.3-7.7); Neutrophils % (A) 50 %; Platelet Count 328 k/uL (150-450); RBC 4.09 m/uL (4.30-5.90); RDW 14.2 % (11.5-15.5); WBC 7.8 k/uL (3.8-10.6)
--- NOTE | 2020-02-29 02:46 | XR ---
EXAMINATION TYPE: XR chest 2V DATE OF EXAM: 02/29/2020 COMPARISON: 02/26/2020 HISTORY: Renal and lung cancer TECHNIQUE: 2 views FINDINGS: Heart and mediastinum are normal. Lungs are clear. Diaphragm is normal. Bony thorax appears normal. There are chest leads. IMPRESSION: No active cardiopulmonary disease. No change.
[2020-02-29 02:58] LABS: Albumin 3.9 g/dL (3.5-5.0); Calcium 9.1 mg/dL (8.4-10.2); Magnesium 1.9 mg/dL (1.6-2.3); Potassium 4.7 mmol/L (3.5-5.1); Total Bilirubin 0.2 mg/dL (0.2-1.3); Total Protein 7.1 g/dL (6.3-8.2)
[2020-02-29 03:04] LABS: Partial Thromboplastin Time 28.9 sec (22.0-30.0); Prothrombin Time 10.3 sec (9.0-12.0)
[2020-02-29] MEDS ORDERED: HEPARIN SODIUM,PORCINE 5,000 UNIT/ML 1 ML VIAL IV ONE ×2 (03:36→09:39)
[2020-02-29] MEDS ORDERED: HEPARIN SOD,PORK IN 0.45% NACL 25,000 UNIT in 0.45% NACL 1 250ML.BAG IV SCH ×2 (03:45→09:45)
[2020-02-29] MEDS ORDERED: HEPARIN SODIUM,PORCINE 5,000 UNIT/ML 1 ML VIAL IV PRN (09:39)
[2020-02-29 09:53] LABS: Basophils % (A) 1 %; Eosinophils # (A) 0.3 k/uL (0-0.7); Eosinophils % (A) 5 %; HCT 35.1 % (39.0-53.0); HGB 11.5 gm/dL (13.0-17.5); Lymphocytes # (A) 2.4 k/uL (1.0-4.8); Lymphocytes % (A) 37 %; MCHC 32.8 g/dL (31.0-37.0); MCV 91.7 fL (80.0-100.0); Monocytes # (A) 0.5 k/uL (0-1.0); Monocytes % (A) 7 %; Neutrophils # (A) 3.1 k/uL (1.3-7.7); Neutrophils % (A) 47 %; Platelet Count 245 k/uL (150-450); RBC 3.83 m/uL (4.30-5.90); RDW 14.3 % (11.5-15.5); WBC 6.5 k/uL (3.8-10.6)
[2020-02-29 10:19] LABS: Partial Thromboplastin Time 97.2 sec (22.0-30.0); Prothrombin Time 10.6 sec (9.0-12.0)
--- NOTE | 2020-02-29 14:12 | CONS ---
CONSULTATION Mr. Mckeon is a 79-year-old male with a history of renal cell carcinoma status post nephrectomy, history of chronic kidney disease, history of metastatic disease to the sternum, who presented with symptoms of substernal chest discomfort. His discomfort was burning-like different from the discomfort he gets usually and because of that came into the emergency room and subsequently admitted. The patient has no prior history of documented coronary artery disease. According to him, underwent cardiac catheterization over 15 years ago that was unremarkable. He underwent a stress test in 2018. An echocardiogram that showed a preserved systolic function and no evidence of stress induced ischemia. He has been reasonably active physically until the pandemic. He denies any dizziness or palpitation. He denies he had any significant change in his breathing. No PND, orthopnea and no peripheral edema. He is pain free at the time of my evaluation. His troponins were mildly elevated. His coronary risk factors are negative for smoking, history of hypertension, hyperlipidemia. He is a nondiabetic. MEDICATION: Include aspirin, hydrochlorothiazide, metoprolol tartrate 25 mg twice a day, pravastatin 20 mg daily, and tamsulosin. REVIEW OF SYSTEMS: Respiratory system: He has no recent wheezing. No cough. No history of documented obstructive lung disease. GI system: No recent GI bleeding. No peptic ulcer disease. system: No dysuria or hematuria. NERVOUS SYSTEM: No stroke or seizure. PHYSICAL EXAMINATION: He is a 79-year-old male, alert, oriented, in no apparent distress. Blood pressure 148/70 with a heart rate in the 60s. HEAD: Normocephalic. EYES sclerae nonicteric. NECK: Good upstroke. No bruit. No jugular venous distention. LUNGS: Clear to auscultation. HEART: Regular rate and rhythm S1, S2. No S3 with systolic murmur heard at the base. No diastolic murmur. No rub. ABDOMEN: Soft, nontender. Positive bowel sounds. No organomegaly. EXTREMITIES: No edema. Intact distal pulses. LAB DATA: Revealed a hemoglobin of 11.5, white blood cell of 6.5, BUN and creatinine 31 and 1.54. Troponin 0.095 and 0.365. His NT proBNP is 181. His EKG revealed a sinus mechanism, normal axis and intervals. No acute ST-segment changes. His chest x-ray shows no acute changes. IMPRESSION: 1. Chest discomfort with evidence suggestive of non ST -segment elevation myocardial infarction. 2. History of hypertension. 3. Hyperlipidemia. 4. History of renal cell carcinoma status post nephrectomy and metastatic disease to the sternum and bone. 5. Chronic kidney disease. RECOMMENDATIONS: I have recommended to obtain echocardiogram with Doppler. I will add nitrate to his regimen. I reviewed the echocardiogram. I have discussed with him the issue of cardiac catheterization, the risks from the procedure as well as the complications especially with the fact that he has prior nephrectomy. At this point, we will see how he is doing by tomorrow and depending on the renal function and his status, recommendation will be made regarding proceeding with coronary angiography. Thank you for this consult. We will follow with you. MMODL / IJN: [id number] /
[2020-02-29] MEDS: ISOSORBIDE MONONITRATE ER 30 MG TAB.ER.24H PO SCH (14:40)
--- NOTE | 2020-02-29 16:51 | ECHOF ---
Referral Reason:NSTEMI MEASUREMENTS -------- HEIGHT: 170.2 cm WEIGHT: 56.2 kg BP: 167/82 IVSd: 1.4 cm (0.6 - 1.1) LVIDd: 3.4 cm (3.9 - 5.3) LVPWd: 1.5 cm (0.6 - 1.1) IVSs: 1.8 cm LVIDs: 2.4 cm LVPWs: 1.9 cm RVIDd: 3.3 cm (< 3.3) LAESV Index (A-L): 16.73 ml/m Ao Diam: 3.6 cm (2.0 - 3.7) AV Cusp: 2.0 cm (1.5 - 2.6) EPSS: 1.0 cm MV E Jian: 0.37 m/s MV DecT: 207 ms MV A Jian: 0.73 m/s MV E/A Ratio: 0.50 AR PHT: 530 ms RAP: 5.00 mmHg RVSP: 19.48 mmHg MV EF SLOPE: 32.40 mm/s (70 - 150) MV EXCURSION: 10.74 mm (> 18.000) FINDINGS -------- Sinus rhythm. This was a technically adequate study. The left ventricular size is normal. There is moderate concentric left ventricular hypertrophy. O verall left ventricular systolic function is low-normal with, an EF between 50 - 55 %. The diastoli c filling pattern is normal for the age of the patient 10.46. The right ventricle is mildly enlarged. Normal LA size by volume 22+/-6 ml/m2. The right atrial size is normal. Interatrial and interventricular septum intact. There is mild aortic valve sclerosis without stenosis. There is tiil-va-ayokdnrb aortic regurgitati on. There is no evidence of aortic stenosis. The mitral valve leaflets are mildly thickened. There is trace to mild mitral regurgitation. Mild tricuspid regurgitation present. There is no evidence of pulmonary hypertension. The right v entricular systolic pressure, as measured by Doppler, is 19.48mmHg. There is no pulmonic regurgitation present. The aortic root is mildy dilated. Normal inferior vena cava with normal inspiratory collapse consistent with estimated right atrial pre ssure of 5 mmHg. There is no pericardial effusion. CONCLUSIONS -------- 1. There is moderate concentric left ventricular hypertrophy. 2. Overall left ventricular systolic function is low-normal with, an EF between 50 - 55 %. 3. The diastolic filling pattern is normal for the age of the patient 10.46 4. The right ventricle is mildly enlarged. 5. Normal LA size by volume 22+/-6 ml/m2. 6. There is mild aortic valve sclerosis without stenosis. 7. There is ocry-fb-pbhrxevw aortic regurgitation. 8. The mitral valve leaflets are mildly thickened. 9. There is trace to mild mitral regurgitation. 10. Mild tricuspid regurgitation present. 11. The aortic root is mildy dilated. 12. There is no pericardial effusion. FEEDER DRIVER: Myriam Cho RDCS
[2020-02-29] MEDS: MORPHINE SULFATE 4 MG/ML SYRINGE IV PRN ×2 (18:26→20:12)
[2020-02-29] MEDS: METOPROLOL TARTRATE 25 MG TAB PO SCH (20:08)
[2020-02-29] MEDS: PRAVASTATIN SODIUM 80 MG TAB PO SCH (20:09)
[2020-02-29] MEDS: TAMSULOSIN 0.4 MG CAP.ER.24H PO SCH (20:09)
[2020-02-29] MEDS ORDERED: PRAVASTATIN SODIUM 20 MG TAB PO SCH (21:00)
--- NOTE | 2020-02-29 22:42 | P.HPIM ---
History of Present Illness H&P Date: 02/29/20 Chief Complaint: chest pain Patient is a 79-year-old male with a known history of left renal cell cancer with nephrectomy and mets to lung and also on the sternum currently taking oral chemotherapy, hypertension, hyperlipidemia, osteoarthritis and previous history of cardiac catheterization several years ago and also previous smoking came to ER with complaints of chest pain mainly in the upper left side side of the chest and radiating across the upper chest and also felt pain in both hands. Pain lasted for about 5 minutes. There is no associated shortness of breath diaphoresis or lightheadedness. Denied any cough or sputum production. No fever no chills. Denies any recent illnesses. Patient does have metastatic renal cell carcinoma with mets to sternum and lung. Patient does have a bone nodular density only upper sternal region. Patient is also having recently right shoulder and right-sided rib pain and is being followed with his oncologist who is being worked up for bony metastasis. Patient says that he experiences pain which is different from his chronic pain. Chest x-ray showed no acute cardiopulmonary process EKG showed normal sinus rhythm laboratory data showed WBC 7.8, hemoglobin 12.6 and platelets 328 Sodium 135, potassium 4.7 bicarb 27 and BUN 31 and creatinine 1.54 Troponin 0 0.095, and 0.365 and 0.202 proBNP 181 and coronavirus PCR not detected. Patient is currently on saturating at 97% on room air and not tachycardic Review of Systems Constitutional: Patient denies any fever or chills . No generalized weakness or weight loss. Abdomen: Patient denied nausea vomiting and diarrhea and abdominal pain. Cardiovascular: Patient ddid have chest pain. no short of breath no palpitations. Respiratory: patient denied any cough is from production. No shortness of b reath Neurologic: Patient denied any numbness or tingling headache. Musculoskeletal: Patient denies any complaints of joint swelling or deformity. Skin: Negative Psychiatric: Negative Endocrine: No heat or cold intolerance. No recent weight gain. Genitourinary: No dysuria or hematuria. All other 14 point ROS negative except the above Past Medical History Past Medical History: Cancer, Chest Pain / Angina, GERD/Reflux, Hyperlipidemia, Hypertension, Osteoarthritis (OA), Prostate Disorder, Renal Disease Additional Past Medical History / Comment(s): L renal cancer with nephrectomy/mets L lung and pt states spot on sternum is gone now-currently taking oral chemotherapy, chronic renal failure stage II, lower leg edema t hought to be due to HTN medications, BPH, chronic low back pain, arthritis vs gout r great toe. 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 Past Anesthesia/Blood Transfusion Reactions: No Reported Reaction Past Psychological History: Depression Additional Psychological History / Comment(s): Pt resides with his spouse. He is an [employer] . He is independent. Smoking Status: Former smoker Past Alcohol Use History: None Reported Additional Past Alcohol Use History / Comment(s): Pt started smoking in 1960 and quit in the 1970s. Past Drug Use History: Marijuana Additional Drug Use History / Comment(s): Pt uses edible marijuiana on occasion. - Past Family History Father Family Medical History: Cancer, Hypertension, Myocardial Infarction ([place]) Additional Family Medical History / Comment(s): SKIN CANCER Mother Family Medical History: Cancer Additional Family Medical History / Comment(s): breast cancer - throat cancer Sister(s) Family Medical History: Cancer Additional Family Medical History / Comment(s): SKIN CANCER Medications and Allergies Home Medications Medication Instructions Recorded Confirmed Type Hydrochlorothiazide 12.5 mg PO HS 10/08/17 02/29/20 History Pravastatin Sodium [Pravachol] 20 mg PO HS 10/08/17 02/29/20 History Metoprolol Tartrate 25 mg PO BID 10/12/17 02/29/20 History Tamsulosin HCl [Flomax] 0.4 mg PO HS 10/12/17 02/29/20 History Aspirin [Adult Low Dose Aspirin EC] 81 mg PO HS 02/29/20 02/29/20 History Cabozantinib S-Malate [Cabometyx] 40 mg PO HS 02/29/20 02/29/20 History Cholecalciferol [Vitamin D3 (25 5,000 unit PO DAILY 02/29/20 02/29/20 History Mcg = 1000 Iu)] Prochlorperazine Maleate 10 mg PO Q6H PRN 02/29/20 02/29/20 History Allergies Allergy/AdvReac Type Severity Reaction Status Date / Time atorvastatin calcium Allergy Unknown Verified 06/13/20 13:20 [From Lipitor] clindamycin Allergy Unknown Verified 02/29/20 13:20 Physical Exam Vitals: Vital Signs Temp Pulse Pulse Resp BP BP Pulse Ox 02/29/20 08:57 98.2 F 60 16 148/79 99 02/29/20 04:00 97.9 F 60 18 167/82 97 02/29/20 03:57 60 18 148/92 98 02/29/20 02:03 97.6 F 66 15 171/91 99 Intake and Output 02/28/20 02/29/20 02/29/20 22:59 06:59 14:59 Intake Total 0 Balance 0 Intake: Oral 0 Other: # Voids 1 Weight 58.2 kg PHYSICAL EXAMINATION: Patient is lying in the bed comfortably, no acute distress, awake alert and oriented.. HEENT: Normocephalic. Neck is supple. Pupils reactive. Nostrils clear. Oral cavity is moist. Ears reveal no drainage. Neck reveals no JVD, carotid bruits, or thyromegaly. CHEST EXAMINATION: Trachea is central. Symmetrical expansion. Lung sheikh clear to auscultation and percussion. CARDIAC: Normal S1, S2 with no gallops. No murmurs ABDOMEN: Soft. Bowel sounds normal. No organomegaly. No abdominal bruits. Extremities: reveal no edema. No clubbing or cyanosis Neurologically awake, alert, oriented x3 with well-coordinated movements. No focal deficits noted Skin: No rash or skin lesions. Psychiatric: Coperative. Nonsuicidal Musculoskeletal: No joint swelling or deformity. Normal range of motion. Results CBC & Chem 7: 02/29/20 09:41 02/29/20 02:08 Labs: Abnormal Lab Results - Last 24 Hours (Table) 02/29/20 02/29/20 02/29/20 Range/Units 02:08 02:08 02:08 RBC 4.09 L (4.30-5.90) m/uL Hgb 12.6 L (13.0-17.5) gm/dL Hct 37.6 L (39.0-53.0) % APTT (22.0-30.0) sec Sodium 135 L (137-145) mmol/L BUN 31 H (9-20) mg/dL Creatinine 1.54 H (0.66-1.25) mg/dL Troponin I 0.095 H* (0.000-0.034) ng/mL 02/29/20 02/29/20 02/29/20 Range/Units 09:41 09:41 09:41 RBC 3.83 L (4.30-5.90) m/uL Hgb 11.5 L (13.0-17.5) gm/dL Hct 35.1 L (39.0-53.0) % APTT 97.2 H (22.0-30.0) sec Sodium (137-145) mmol/L BUN (9-20) mg/dL Creatinine (0.66-1.25) mg/dL Troponin I 0.365 H* (0.000-0.034) ng/mL Thrombosis Risk Factor Assmnt - DVT/VTE Prophylaxis DVT/VTE Prophylaxis: Pharmacologic Prophylaxis ordered Assessment and Plan Assessment: Acute non-ST wave WI with elevated troponin level Chest pain Metastatic left renal cell carcinoma with mets to lung and sternum. Currently o n oral chemotherapy Hypertension Hyperlipidemia GERD Osteoarthritis Chronic kidney disease stage III BPH Chronic low back pain Remote history of cardiac catheterization Depression Previous history of smoking and marijuana use DVT prophylaxis. Plan: Patient will be continued on telemetry monitoring. Continue with heparin drip. Troponin levels are trending down. 2D echocardiogram was ordered and cardiology is on board. Continue with beta-blockers and Imdur was added. Continue with aspirin and statins. Further recommendations based on the clinical course. Currently patient is chest pain-free. Monitor renal function. Time with Patient: Greater than 30
[2020-03-01 07:08] LABS: Calcium 8.3 mg/dL (8.4-10.2)
[2020-03-01 07:15] LABS: Basophils # (A) 0.1 k/uL (0-0.2); Basophils % (A) 1 %; Eosinophils # (A) 0.2 k/uL (0-0.7); Eosinophils % (A) 4 %; HCT 36.9 % (39.0-53.0); HGB 11.9 gm/dL (13.0-17.5); Lymphocytes % (A) 31 %; MCHC 32.1 g/dL (31.0-37.0); MCV 93.2 fL (80.0-100.0); Mean Platelet Volume 8.5; Monocytes # (A) 0.5 k/uL (0-1.0); Monocytes % (A) 8 %; Neutrophils # (A) 3.5 k/uL (1.3-7.7); Neutrophils % (A) 54 %; Platelet Count 259 k/uL (150-450); RBC 3.96 m/uL (4.30-5.90); RDW 14.4 % (11.5-15.5); WBC 6.4 k/uL (3.8-10.6)
[2020-03-01] MEDS: ASPIRIN 81 MG PO SCH (09:00)
[2020-03-01] MEDS ORDERED: ASPIRIN 325 MG TAB PO SCH (09:00)
[2020-03-01] MEDS ORDERED: ATORVASTATIN 80 MG TAB PO STA (09:28)
[2020-03-01] MEDS ORDERED: ASPIRIN 325 MG TAB PO STA (09:28)
[2020-03-01] MEDS ORDERED: NITROGLYCERIN SL TABS 0.4 MG TAB SUBLINGUAL PRN (09:28)
[2020-03-01] MEDS ORDERED: ALPRAZolam 0.25 MG TAB PO PRN (09:28)
[2020-03-01] MEDS ORDERED: ALPRAZolam 0.5 MG TAB PO PRN (09:28)
[2020-03-01] MEDS ORDERED: SODIUM CHLORIDE 0.9% 1,000 ML in EMPTY BAG 1 BAG IV ONE (09:28)
[2020-03-01] MEDS: METOPROLOL TARTRATE 25 MG TAB PO SCH ×2 (09:52→21:47)
[2020-03-01] MEDS: ISOSORBIDE MONONITRATE ER 30 MG TAB.ER.24H PO SCH (09:53)
[2020-03-01] MEDS ORDERED: IV FLUID CONTINUATION 900 ML IV ONE (11:58)
[2020-03-01] MEDS ORDERED: fentaNYL (PF) 50 MCG/ML 2 ML AMP ONE (12:07)
[2020-03-01] MEDS ORDERED: HEPARIN SODIUM 1,000 UN/ML (10ML VL) ONE (12:07)
[2020-03-01] MEDS ORDERED: VERAPAMIL 2.5 MG/ML 2 ML AMP ONE (12:07)
[2020-03-01] MEDS ORDERED: LIDOCAINE 1% INJ 10MG/ML (20 ML MDV) ONE (12:07)
[2020-03-01] MEDS ORDERED: LIDOCAINE 1% INJ 10MG/ML (20 ML MDV) SQ ONE (12:09)
[2020-03-01] MEDS ORDERED: fentaNYL (PF) 50 MCG/ML 2 ML AMP IV ONE (12:10)
[2020-03-01] MEDS ORDERED: VERAPAMIL SYRINGE (5 MG/10 ML) INTRAARTER ONE (12:11)
[2020-03-01] MEDS ORDERED: HEPARIN SODIUM 1,000 UN/ML (10ML VL) IV ONE (12:19)
[2020-03-01] MEDS ORDERED: IOPAMIDOL-370 125ML BTL INJ ONE (12:23)
[2020-03-01] MEDS ORDERED: RX INFO: IV CONTRAST WAS GIVEN 1 EACH MISC MISCELLANE PRN (12:31)
[2020-03-01] MEDS ORDERED: SODIUM CHLORIDE 0.9% 1,000 ML IV SCH (12:45)
[2020-03-01] MEDS: CLOPIDOGREL 75 MG TAB PO SCH (12:55)
[2020-03-01 14:31] VITALS: BMI 19.0
--- NOTE | 2020-03-01 17:09 | CC ---
CARDIAC CATHETERIZATION REPORT Mr. Mckeon is a 79-year-old male with a known history of hypertension, hyperlipidemia, history of chronic kidney disease, and a prior history of renal cell carcinoma with sternal metastasis that has been stable over the last few years, who presented with symptoms of chest burning different from his prior musculoskeletal pain with mild troponin elevation and no clear EKG changes. He had recurrent episode of pain and because of that, recommendation made regarding cardiac catheterization. The procedure, its risks and complications were discussed with the patient who is in full understanding and agreement. PROCEDURE DETAILS: Patient was brought to the laboratory equipment cleaner in a fasting state after receiving fentanyl and Benadryl and achieving moderate conscious sedated state. Using Xylocaine anesthesia and Seldinger technique, a 6-[place] sheath was introduced in the right radial artery. Selective right and left coronary angiography performed using 5 [place] 3 and a half bend right Meka catheter. Multiple views of the coronary artery including hemiaxial views obtained. Following that, a 5-[place] tight pigtail catheter was introduced into the left ventricle and pressures were calculated. Following that, catheter and sheath were removed. Hemostasis was obtained with deployment of a TR band. There was no immediate complications. Patient is returned to his room in stable condition. Of note, the patient received a total of 4000 units of intravenous heparin. FINDINGS: LEFT MAIN: This is a large-sized vessel bifurcating into left circumflex, left anterior descending artery has no evidence of high-grade stenosis. LEFT ANTERIOR DESCENDING CORONARY ARTERY: This is a large-sized vessel reaching towards the apex with a wraparound apex segment. The proximal LAD has a 20% to 30% plaque. At the takeoff of the 2nd largest diagonal branch, there is an an area of stenosis of about 40-50 percent. The rest of the vessel has no high-grade stenosis. LEFT CIRCUMFLEX: This is a nondominant vessel giving rise to a large obtuse marginal branch. The left circumflex obtuse marginal branch has 20% to 30% plaque without any evidence of high-grade stenosis. RCA: This is a large dominant vessel bifurcating distally PDA and posterolateral segment branches the right coronary artery in the proximal and mid segment has intimal disease of 20% without any evidence of high-grade stenosis. LEFT VENTRICULOGRAM: Was not performed. HEMODYNAMICS: There was no gradient across the aortic valve. The left ventricle end-diastolic pressure was 8-10 mmHg. CONCLUSION: 1. Mild to moderate triple-vessel coronary artery disease. 2. Right dominance. RECOMMENDATION: It is possible that the patient had a plaque rupture. At this time, I see no evidence of high-grade stenosis. I will maximize medical therapy and depending on his progress, further recommendations will be made. Those findings and recommendations were discussed with the patient and he is in full understanding and agreement. Duration of procedure is 18 minutes. RON / PARKERN: [id number] /
[2020-03-01] MEDS: TAMSULOSIN 0.4 MG CAP.ER.24H PO SCH (22:35)
[2020-03-01] MEDS: PRAVASTATIN SODIUM 80 MG TAB PO SCH (22:36)
--- NOTE | 2020-03-02 00:18 | P.PN ---
Subjective Progress Note Date: 03/01/20 Principal diagnosis: NSTEMI Patient is a 79-year-old male with a known history of left renal cell cancer with nephrectomy and mets to lung and also on the sternum currently taking oral chemotherapy, hypertension, hyperlipidemia, osteoarthritis and previous history of cardiac catheterization several years ago and also previous smoking came to ER with complaints of chest pain mainly in the upper left side side of the chest and radiating across the upper chest and also felt pain in both hands. Pain lasted for about 5 minutes. There is no associated shortness of breath diaphoresis or lightheadedness. Denied any cough or sputum production. No fever no chills. Denies any recent illnesses. Patient does have metastatic renal cell carcinoma with mets to sternum and lung. Patient does have a bone nodular density only upper sternal region. Patient is also having recently right shoulder and right-sided rib pain and is being followed with his oncologist who is being worked up for bony metastasis. Patient says that he experiences pain which is different from his chronic pain. Chest x-ray showed no acute cardiopulmonary process EKG showed normal sinus rhythm laboratory data showed WBC 7.8, hemoglobin 12.6 and platelets 328 Sodium 135, potassium 4.7 bicarb 27 and BUN 31 and creatinine 1.54 Troponin 0 0.095, and 0.365 and 0.202 proBNP 181 and coronavirus PCR not detected. Patient is currently on saturating at 97% on room air and not tachycardic 03/01/2020 Patient denied any episodes of chest pain overnight. Patient was taken to cardiac catheterization today. Cardiac catheter showed mild to moderate triple-vessel coronary artery disease. No evidence of high-grade stenosis. Maximal medical therapy was recommended. Possible ruptured plate was suspected. Patient is being continued on aspirin, Plavix, statins and Imdur was added. Along with metoprolol. Patient denied any cough or sputum production. No fever no chills. No other acute overnight issues. Cardiology is on board. Current medications reviewed. Objective - Vital Signs Vital signs: Vital Signs Temp 97.7 F 03/01/20 15:15 Pulse 64 03/01/20 17:27 Resp 16 03/01/20 17:27 BP 135/67 03/01/20 17:27 Pulse Ox 96 03/01/20 17:27 Intake & Output 03/01/20 03/01/20 03/02/20 06:59 18:59 06:59 Intake Total 480 460 Balance 480 460 Weight 55 kg 55 kg Intake: IV 250 Intake, IV Titration 210 Amount Sodium Chloride 0.9% 1, 210 000 ml @ 100 mls/hr IV . Q10H JAY JAY Rx#:[id number] Oral 480 Other: # Voids 1 - Exam PHYSICAL EXAMINATION: Patient is lying in the bed comfortably, no acute distress, awake alert and oriented.. HEENT: Normocephalic. Neck is supple. Pupils reactive. Nostrils clear. Oral cavity is moist. Ears reveal no drainage. Neck reveals no JVD, carotid bruits, or thyromegaly. CHEST EXAMINATION: Trachea is central. Symmetrical expansion. Lung sheikh clear to auscultation and percussion. CARDIAC: Normal S1, S2 with no gallops. No murmurs ABDOMEN: Soft. Bowel sounds normal. No organomegaly. No abdominal bruits. Extremities: reveal no edema. No clubbing or cyanosis Neurologically awake, alert, oriented x3 with well-coordinated movements. No focal deficits noted Skin: No rash or skin lesions. Psychiatric: Coperative. Nonsuicidal Musculoskeletal: No joint swelling or deformity. Normal range of motion. - Labs CBC & Chem 7: 03/01/20 06:30 03/01/20 06:30 Labs: Abnormal Lab Results - Last 24 Hours (Table) 03/01/20 03/01/20 Range/Units 06:30 06:30 RBC 3.96 L (4.30-5.90) m/uL Hgb 11.9 L (13.0-17.5) gm/dL Hct 36.9 L (39.0-53.0) % Sodium 135 L (137-145) mmol/L BUN 29 H (9-20) mg/dL Creatinine 1.27 H (0.66-1.25) mg/dL Calcium 8.3 L (8.4-10.2) mg/dL HDL Cholesterol 35 L (40-60) mg/dL Assessment and Plan Assessment: Acute non-ST wave [place] with elevated troponin level . Status post cardiac catheterization. Mild to moderate triple-vessel disease. Maximal medical therapy was recommended. Chest pain Metastatic left renal cell carcinoma with mets to lung and sternum. Currently on oral chemotherapy Hypertension Hyperlipidemia GERD Osteoarthritis Chronic kidney disease stage III BPH Chronic low back pain Remote history of cardiac catheterization Depression Previous history of smoking and marijuana use DVT prophylaxis. Plan: Patient will be continued on telemetry monitoring. s/p cath. Maximal medical therapy was recommended. Troponin levels are trending down. 2D echocardiogram was ordered and cardiology is on board. Continue with beta-blockers and Imdur was added. Continue with aspirin and statins. Further recommendations based on the clinical course. Currently patient is chest pain-free. Monitor renal function. Time with Patient: Greater than 30
[2020-03-02 01:42] VITALS: RESP 16
[2020-03-02] MEDS: ACETAMINOPHEN TAB 325 MG TAB PO PRN ×2 (03:55→12:12)
[2020-03-02 07:24] LABS: Basophils % (A) 1 %; Eosinophils # (A) 0.2 k/uL (0-0.7); Eosinophils % (A) 3 %; HCT 36.9 % (39.0-53.0); HGB 12.2 gm/dL (13.0-17.5); Lymphocytes # (A) 1.8 k/uL (1.0-4.8); Lymphocytes % (A) 26 %; MCH 30.4 pg (25.0-35.0); MCV 92.1 fL (80.0-100.0); Mean Platelet Volume 8.6; Monocytes # (A) 0.5 k/uL (0-1.0); Monocytes % (A) 8 %; Neutrophils % (A) 60 %; Platelet Count 288 k/uL (150-450); RDW 14.3 % (11.5-15.5); WBC 6.7 k/uL (3.8-10.6)
[2020-03-02 07:40] LABS: Calcium 8.3 mg/dL (8.4-10.2)
[2020-03-02] MEDS: METOPROLOL TARTRATE 25 MG TAB PO SCH (08:41)
[2020-03-02] MEDS: CLOPIDOGREL 75 MG TAB PO SCH (08:41)
[2020-03-02] MEDS: ISOSORBIDE MONONITRATE ER 30 MG TAB.ER.24H PO SCH (08:42)
[2020-03-02] MEDS: ASPIRIN 81 MG PO SCH (08:42)
--- NOTE | 2020-03-02 11:05 | PN ---
PROGRESS NOTE Mr. Mckeon is a 79-year-old male with a history of renal cell carcinoma, status post nephrectomy and metastatic disease today sternum, who presented with chest burning with mild troponin elevation. In view of that, he underwent cardiac catheterization yesterday, was found to have [id number] triple-vessel coronary artery disease. He is feeling well today. He has some musculoskeletal back discomfort, but no chest discomfort. His breathing has been stable. He denies any dizziness or palpitation. He denies any nausea. He continues to be at this time on aspirin once a day, Plavix 75 mg daily, isosorbide mononitrate 30 mg daily. PHYSICAL EXAMINATION: Blood pressure 110/60 with a heart rate in the 60s. LUNGS: Clear. HEART: Regular rate and rhythm, S1, S2. No S3 with a systolic murmur and no diastolic murmur. ABDOMEN: Soft, nontender. EXTREMITIES: No edema, right radial pulse intact. LAB DATA: BUN and creatinine 26 and 1.08, potassium 4.0. IMPRESSION: 1. Non ST-segment elevation myocardial infarction with mild to moderate disease. 2. History of renal failure, stable. 3. Status post nephrectomy for renal cell carcinoma and evidence of sternal metastasis. that has been stable. 4. History of hypertension. 5. Hyperlipidemia. RECOMMENDATION: I will continue present therapy patient should be able to be discharged home today and followed as an outpatient. MMODL / IJN: [id number] /
[2020-03-02 11:29] VITALS: BP 128/73; PULSE 60; TEMP 98.7
--- NOTE | 2020-03-11 03:33 | P.DS ---
Providers Date of admission: 02/29/20 03:36 Expected date of discharge: 03/02/20 Attending physician: Vitaliy Tellez Consults: 02/29/20 03:36 Consult Physician Urgent Consulting Provider: [facility] Consult Reason/Comments: NSTEMI Do you want consulting provider notified?: Yes, Notify in am Primary care physician: [facility] Hospital Course: Discharge diagnosis Acute non-ST wave [place] with elevated troponin level . Status post cardiac catheterization. Mild to moderate triple-vessel disease. Maximal medical therapy was recommended. Chest pain Metastatic left renal cell carcinoma with mets to lung and sternum. Currently on oral chemotherapy Hypertension Hyperlipidemia GERD Osteoarthritis Chronic kidney disease stage III BPH Chronic low back pain Remote history of cardiac catheterization Depression Previous history of smoking and marijuana use DVT prophylaxis. Hospital course Patient is a 79-year-old male with a known history of left renal cell cancer with nephrectomy and mets to lung and also on the sternum currently taking oral chemotherapy, hypertension, hyperlipidemia, osteoarthritis and previous history of cardiac catheterization several years ago and also previous smoking came to ER with complaints of chest pain mainly in the upper left side side of the chest and radiating across the upper chest and also felt pain in both hands. Pain lasted for about 5 minutes. There is no associated shortness of breath diaphoresis or lightheadedness. Denied any cough or sputum production. No fever no chills. Denies any recent illnesses. Patient does have metastatic renal cell carcinoma with mets to sternum and lung. Patient does have a bone nodular density only upper sternal region. Patient is also having recently right shoulder and right-sided rib pain and is being followed with his oncologist who is being worked up for bony metastasis. Patient says that he experiences pain which is different from his chronic pain. Chest x-ray showed no acute cardiopulmonary process EKG showed normal sinus rhythm laboratory data showed WBC 7.8, hemoglobin 12.6 and platelets 328 Sodium 135, potassium 4.7 bicarb 27 and BUN 31 and creatinine 1.54 Troponin 0 0.095, and 0.365 and 0.202 proBNP 181 and coronavirus PCR not detected. Patient is currently on saturating at 97% on room air and not tachycardic 03/01/2020 Patient denied any episodes of chest pain overnight. Patient was taken to cardiac catheterization today. Cardiac catheter showed mild to moderate triple-vessel coronary artery disease. No evidence of high-grade stenosis. Maximal medical therapy was recommended. Possible ruptured plate was suspected. Patient is being continued on aspirin, Plavix, statins and Imdur was added. Along with metoprolol. Patient denied any cough or sputum production. No fever no chills. No other acute overnight issues. Cardiology is on board. 03/02/2020 Patient currently denied any complaints of chest pain or shortness of breath. Patient underwent cardiac catheterization yesterday. Maximal medical therapy was recommended. Patient is currently chest pain-free. No fever no chills. No cough or sputum production. Cleared from cardiology standpoint. Patient is being discharged home today. PHYSICAL EXAMINATION: Patient is lying in the bed comfortably, no acute distress, awake alert and oriented.. HEENT: Normocephalic. Neck is supple. Pupils reactive. Nostrils clear. Oral cavity is moist. Ears reveal no drainage. Neck reveals no JVD, carotid bruits, or thyromegaly. CHEST EXAMINATION: Trachea is central. Symmetrical expansion. Lung sheikh clear to auscultation and percussion. CARDIAC: Normal S1, S2 with no gallops. No murmurs ABDOMEN: Soft. Bowel sounds normal. No organomegaly. No abdominal bruits. Extremities: reveal no edema. No clubbing or cyanosis Neurologically awake, alert, oriented x3 with well-coordinated movements. No focal deficits noted Skin: No rash or skin lesions. Psychiatric: Coperative. Nonsuicidal Musculoskeletal: No joint swelling or deformity. Normal range of motion. Discharge vitals blood pressure 128/73, respiration 16 heart rate 60 and pulse ox 96% on room air. Afebrile with T-max 98.7 Patient Condition at Discharge: Fair Plan - Discharge Summary Discharge Rx Participant: No New Discharge Prescriptions: New Isosorbide Mononitrate ER [Imdur] 30 mg PO DAILY #90 tab.er.24h Atorvastatin [Lipitor] 40 mg PO HS #90 tablet Nitroglycerin Sl Tabs [Nitrostat] 0.4 mg SUBLINGUAL Q5M PRN #25 tab PRN Reason: Chest Pain Clopidogrel [Plavix] 75 mg PO DAILY #90 tab HYDROcodone/APAP 5-325MG [[place] 5-325] 1 tab PO Q6HR PRN 3 Days #12 tab PRN Reason: sever pain Continue Metoprolol Tartrate 25 mg PO BID Tamsulosin HCl [Flomax] 0.4 mg PO HS Prochlorperazine Maleate 10 mg PO Q6H PRN PRN Reason: Nausea Cholecalciferol [Vitamin D3 (25 Mcg = 1000 Iu)] 5,000 unit PO DAILY Aspirin [Adult Low Dose Aspirin EC] 81 mg PO HS Cabozantinib S-Malate [Cabometyx] 40 mg PO HS Discontinued Pravastatin Sodium [Pravachol] 20 mg PO HS Hydrochlorothiazide 12.5 mg PO HS Discharge Medication List Metoprolol Tartrate 25 mg PO BID 10/12/17 [History] Tamsulosin HCl [Flomax] 0.4 mg PO HS 10/12/17 [History] Aspirin [Adult Low Dose Aspirin EC] 81 mg PO HS 02/29/20 [History] Cabozantinib S-Malate [Cabometyx] 40 mg PO HS 02/29/20 [History] Cholecalciferol [Vitamin D3 (25 Mcg = 1000 Iu)] 5,000 unit PO DAILY 02/29/20 [History] Prochlorperazine Maleate 10 mg PO Q6H PRN 02/29/20 [History] Atorvastatin [Lipitor] 40 mg PO HS #90 tablet 03/02/20 [Rx] Clopidogrel [Plavix] 75 mg PO DAILY #90 tab 03/02/20 [Rx] HYDROcodone/APAP 5-325MG [[place] 5-325] 1 tab PO Q6HR PRN 3 Days #12 tab 03/02/20 [Rx] Isosorbide Mononitrate ER [Imdur] 30 mg PO DAILY #90 tab.er.24h 03/02/20 [Rx] Nitroglycerin Sl Tabs [Nitrostat] 0.4 mg SUBLINGUAL Q5M PRN #25 tab 03/02/20 [Rx] Follow up Appointment(s)/Referral(s): Javi Sultana MD [STAFF PHYSICIAN] - 03/10/20 2:[address] [facility],Clinic [Primary Care Provider] - 1-2 days Patient Instructions/Handouts: Heart Attack (DC) Discharge Disposition: HOME SELF-CARE
== END 2020-03-02 14:38 | disposition home or self-care (01) | DRG 281 ==
LOC: EC 01:52 → 3SCARD 03:36
PROVIDERS: ADMIT Internal Medicine; ATTEND Internal Medicine
PROC: B2111ZZ Fluoroscopy of Multiple Coronary Arteries using Low Osmolar Contrast (ICD-10-PCS; principal; 2020-03-01 12:00)
PROC: 4A023N7 Measurement of Cardiac Sampling and Pressure, Left Heart, Percutaneous Approach (ICD-10-PCS; principal; 2020-03-01 12:00)
DX: I21.4 Non-ST elevation (NSTEMI) myocardial infarction (principal); C64.2 Malignant neoplasm of left kidney, except renal pelvis; C78.00 Secondary malignant neoplasm of unspecified lung; C79.51 Secondary malignant neoplasm of bone; K21.9 Gastro-esophageal reflux disease without esophagitis; M19.90 Unspecified osteoarthritis, unspecified site; N40.0 Benign prostatic hyperplasia without lower urinary tract symptoms; G89.29 Other chronic pain; F32.9 Major depressive disorder, single episode, unspecified; E78.5 Hyperlipidemia, unspecified; I25.10 Atherosclerotic heart disease of native coronary artery without angina pectoris; M54.5 Low back pain; N18.3 Chronic kidney disease, stage 3 (moderate); I12.9 Hypertensive chronic kidney disease with stage 1 through stage 4 chronic kidney disease, or unspecified chronic kidney disease; Z11.59 Encounter for screening for other viral diseases; Z79.02 Long term (current) use of antithrombotics/antiplatelets; Z79.82 Long term (current) use of aspirin; Z79.899 Other long term (current) drug therapy; Z88.1 Allergy status to other antibiotic agents; Z88.8 Allergy status to other drugs, medicaments and biological substances; Z87.891 Personal history of nicotine dependence; Z85.528 Personal history of other malignant neoplasm of kidney; Z90.5 Acquired absence of kidney; Z82.49 Family history of ischemic heart disease and other diseases of the circulatory system; Z80.8 Family history of malignant neoplasm of other organs or systems; Z80.3 Family history of malignant neoplasm of breast; Z98.890 Other specified postprocedural states
CPT/HCPCS: 36415; 71046; 80048; 80053; 80061; 83690; 83735; 83880; 84484; 85025; 85610; 85730; 93005; 93306; 93458; 96361; 96365; 96376; 99285

== ENCOUNTER 2020-03-26 19:23 | Inpatient (IN) | payer OTHER, MEDICARE ==
[2020-03-26] MEDS ORDERED: ACETAMINOPHEN TAB 500 MG TAB PO STA (20:47)
[2020-03-26] MEDS ORDERED: SODIUM CHLORIDE 0.9% 500 ML 500 ML IV ONE (20:47)
[2020-03-26 20:55] LABS: Basophils % (A) 1 %; Eosinophils # (A) 0.1 k/uL (0-0.7); Eosinophils % (A) 3 %; HCT 39.9 % (39.0-53.0); HGB 12.8 gm/dL (13.0-17.5); Lymphocytes # (A) 0.7 k/uL (1.0-4.8); Lymphocytes % (A) 16 %; MCH 29.5 pg (25.0-35.0); MCHC 32.1 g/dL (31.0-37.0); Mean Platelet Volume 8.1; Monocytes # (A) 0.3 k/uL (0-1.0); Monocytes % (A) 6 %; Neutrophils # (A) 3.1 k/uL (1.3-7.7); Neutrophils % (A) 73 %; Platelet Count 215 k/uL (150-450); RBC 4.34 m/uL (4.30-5.90); RDW 15.8 % (11.5-15.5); WBC 4.2 k/uL (3.8-10.6)
--- NOTE | 2020-03-26 20:59 | XR ---
EXAMINATION TYPE: XR chest 2V DATE OF EXAM: 03/26/2020 COMPARISON: Chest x-ray February 29, 2020. HISTORY: Chest pain. TECHNIQUE: Frontal and lateral views of the chest are obtained. FINDINGS: There is chronic emphysematous change without suspicious focal air space opacity, pleural effusion, or pneumothorax seen. The cardiac silhouette size is stable and within normal limits. Th e osseous structures are demineralized. IMPRESSION: Chronic changes without acute pulmonary process.
[2020-03-26 21:20] LABS: Calcium 9.5 mg/dL (8.4-10.2); Potassium 4.2 mmol/L (3.5-5.1); Total Bilirubin 0.8 mg/dL (0.2-1.3); Total Protein 6.9 g/dL (6.3-8.2)
[2020-03-26 21:26] LABS: Partial Thromboplastin Time 25.1 sec (22.0-30.0); Prothrombin Time 10.3 sec (9.0-12.0)
[2020-03-26] MEDS ORDERED: cefTRIAXone IN SWFI 1,000 MG/10 ML SYRINGE IVP STA (22:28)
[2020-03-26 22:43] LABS: Appearance,Urine Clear (Clear); Bilirubin,Urine Negative (Negative); Blood,Urine Trace (Negative); Color,Urine Yellow; Glucose,Urine (UA) Negative (Negative); Hyaline Casts,Urine 1 /lpf (0-2); Ketones,Urine 1+ (Negative); Leukocyte Esterase,Urine Negative (Negative); Mucus,Urine Rare /hpf; Nitrite,Urine Negative (Negative); Protein,Urine Negative (Negative); RBC,Urine 2 /hpf (0-5); Specific Gravity,Urine 1.018 (1.001-1.035); Urobilinogen,Urine <2.0 mg/dL (<2.0); WBC,Urine <1 /hpf (0-5)
--- NOTE | 2020-03-26 22:47 | CT ---
EXAMINATION TYPE: CT brain wo con DATE OF EXAM: 03/26/2020 COMPARISON: None HISTORY: Fever. CT DLP: 1154.4 mGycm Automated exposure control for dose reduction was used. There is mild diffuse cerebral cortical atrophy. There is no mass effect nor midline shift. There is no sign of intracranial hemorrhage. Calvarium is intact. There is no evidence of cerebral edema. IMPRESSION: Cerebral atrophy. No acute intracranial abnormality.
--- NOTE | 2020-03-26 22:51 | ED ---
Fever HPI - General Chief Complaint: Fever Stated Complaint: Fever Source: patient Mode of arrival: ambulatory Limitations: no limitations - History of Present Illness Initial Comments: Patient is a 79-year-old male with past medical history of renal cell cancer with metastatic lesions to the sternum and long who presents to the emergency room with reported fever. Patient sees Dr. Mcneal in office. States that he used to take oral chemo. As of last Monday he was switched to intravenous chemo. States that subsequently yesterday he developed generalized abdominal pain, nausea and vomiting. States he has a very poor appetite. He did attempt to eat something before he came in however throughout right back up. His took his temp and found that he had a fever. He admits to a mild headache without neck stiffness. No vision changes. Denies chest pain, shortness of breath or cough. Denies changes in his urination to include dysuria, hematuria or difficulty voiding. Denies melenic stools or hematochezia. No back pain. No rashes. He did take Tylenol earlier today. No other alleviating, precipitating or modifying factors - Related Data Home Medications Medication Instructions Recorded Confirmed Metoprolol Tartrate 25 mg PO BID 10/12/17 03/26/20 Tamsulosin HCl [Flomax] 0.4 mg PO HS 10/12/17 03/26/20 Aspirin [Adult Low Dose Aspirin EC] 81 mg PO HS 02/29/20 03/26/20 Cholecalciferol [Vitamin D3 (25 5,000 unit PO DAILY 02/29/20 03/26/20 Mcg = 1000 Iu)] Prochlorperazine Maleate 10 mg PO Q6H PRN 02/29/20 03/26/20 Diclofenac Sodium [Voltaren Gel] 1 applic TOPICAL BID PRN 03/26/20 03/26/20 HYDROcodone/APAP 5-325MG [[place] 1 tab PO Q6HR PRN 03/26/20 03/26/20 5-325] Ketorolac 0.5% Ophth Soln [Acular 1 drop RIGHT EYE BID 03/26/20 03/26/20 0.5%] Loteprednol Etabonate [Inveltys] 1 drop RIGHT EYE BID 03/26/20 03/26/20 Previous Rx's Medication Instructions Recorded Atorvastatin [Lipitor] 40 mg PO HS #90 tablet 03/02/20 Clopidogrel [Plavix] 75 mg PO DAILY #90 tab 03/02/20 Isosorbide Mononitrate ER [Imdur] 30 mg PO DAILY #90 tab.er.24h 03/02/20 Nitroglycerin Sl Tabs [Nitrostat] 0.4 mg SUBLINGUAL Q5M PRN #25 tab 03/02/20 Allergies Allergy/AdvReac Type Severity Reaction Status Date / Time atorvastatin calcium Allergy Unknown Verified 03/26/20 23:17 [From Lipitor] clindamycin Allergy Unknown Verified 03/26/20 23:17 Review of Systems ROS Statement: Those systems with pertinent positive or pertinent negative responses have been documented in the HPI. ROS Other: All systems not noted in ROS Statement are negative. Past Medical History Past Medical History: Cancer, Chest Pain / Angina, GERD/Reflux, Hyperlipidemia, Hypertension, Osteoarthritis (OA), Prostate Disorder, Renal Disease Additional Past Medical History / Comment(s): L renal cancer with nephrectomy/mets L lung and pt states spot on sternum is gone now-currently taking oral chemotherapy, chronic renal failure stage II, lower leg edema thought to be due to HTN medications, BPH, chronic low back pain, arthritis vs gout r great toe. 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 Past Anesthesia/Blood Transfusion Reactions: No Reported Reaction Past Psychological History: Depression Smoking Status: Former smoker Past Alcohol Use History: None Reported Past Drug Use History: Marijuana - Past Family History Father Family Medical History: Cancer, Hypertension, Myocardial Infarction ([place]) Additional Family Medical History / Comment(s): SKIN CANCER Mother Family Medical History: Cancer Additional Family Medical History / Comment(s): breast cancer - throat cancer Sister(s) Family Medical History: Cancer Additional Family Medical History / Comment(s): SKIN CANCER General Exam Limitations: no limitations General appearance: alert, in no apparent distress Head exam: Present: atraumatic, normocephalic, normal inspection Eye exam: Present: normal appearance, PERRL, EOMI. Absent: scleral icterus, conjunctival injection, periorbital swelling ENT exam: Present: normal exam, mucous membranes moist Neck exam: Present: normal inspection. Absent: tenderness, meningismus, lymphadenopathy Respiratory exam: Present: normal lung sounds bilaterally. Absent: respiratory distress, wheezes, rales, rhonchi, stridor Cardiovascular Exam: Present: regular rate, normal rhythm, normal heart sounds. Absent: systolic murmur, diastolic murmur, rubs, gallop, clicks GI/Abdominal exam: Present: soft, normal bowel sounds. Absent: distended, tenderness, guarding, rebound, rigid Extremities exam: Present: normal inspection, full ROM, normal capillary refill. Absent: tenderness, pedal edema, joint swelling, calf tenderness Back exam: Present: normal inspection Neurological exam: Present: alert, oriented X3, CN II-XII intact Psychiatric exam: Present: normal affect, normal mood Skin exam: Present: warm, dry, intact, normal color. Absent: rash Course Vital Signs 03/26/20 03/26/20 03/26/20 19:28 20:27 22:11 Temperature 100.4 F H 101.6 F H 99.8 F H Pulse Rate 81 76 Respiratory 18 18 Rate Blood Pressure 158/76 156/76 O2 Sat by Pulse 96 98 Oximetry 03/26/20 23:27 Temperature 98.8 F Pulse Rate 74 Respiratory 16 Rate Blood Pressure 133/77 O2 Sat by Pulse Oximetry Medical Decision Making - Medical Decision Making Arrival patient is placed into room 3. A thorough history of physical exam was performed. Patient was given another dose of Tylenol. Peripheral IV was established. Laboratory studies were conducted. Lab studies are remarkable for a creatinine of 1.5. CT the patient's brain demonstrates cerebral atrophy with no acute intracranial abnormality. Chest x-ray demonstrates chronic changes without acute pulmonary process. CT of the patient's abdomen pelvis without contrast was performed which demonstrates sigmoid diverticulosis without diverticulitis. Right renal cyst. No signs of right renal obstruction. Renal cyst appears increased compared to old. Left nephrectomy. Mild urinary bladder wall thickening. The patient is reevaluated and states he feels improved at this time however as I am unable to identify a source for his fever I do recommend hospital admission. Patient was covered with Rocephin after blood cultures were obtained. I will consult Dr. Mcneal and Dr. Mckeon. Patient admitted to [facility]. He remained in stable condition and was transported to the floor - Lab Data Result diagrams: 03/28/20 02:22 03/28/20 02:22 Lab Results 03/26/20 03/26/20 03/26/20 Range/Units 20:36 20:36 20:36 WBC 4.2 (3.8-10.6) k/uL RBC 4.34 (4.30-5.90) m/uL Hgb 12.8 L (13.0-17.5) gm/dL Hct 39.9 (39.0-53.0) % MCV 92.0 (80.0-100.0) fL MCH 29.5 (25.0-35.0) pg MCHC 32.1 (31.0-37.0) g/dL RDW 15.8 H (11.5-15.5) % Plt Count 215 (150-450) k/uL Neutrophils % 73 % Lymphocytes % 16 % Monocytes % 6 % Eosinophils % 3 % Basophils % 1 % Neutrophils # 3.1 (1.3-7.7) k/uL Lymphocytes # 0.7 L (1.0-4.8) k/uL Monocytes # 0.3 (0-1.0) k/uL Eosinophils # 0.1 (0-0.7) k/uL Basophils # 0.0 (0-0.2) k/uL PT 10.3 (9.0-12.0) sec INR 1.0 (<1.2) APTT 25.1 (22.0-30.0) sec Sodium 134 L (137-145) mmol/L Potassium 4.2 (3.5-5.1) mmol/L Chloride 100 (98-107) mmol/L Carbon Dioxide 27 (22-30) mmol/L Anion Gap 7 mmol/L BUN 21 H (9-20) mg/dL Creatinine 1.51 H (0.66-1.25) mg/dL Est GFR (CKD-EPI)AfAm 51 (>60 ml/min/1.73 sqM) Est GFR (CKD-EPI)NonAf 44 (>60 ml/min/1.73 sqM) Glucose 104 H (74-99) mg/dL Plasma Lactic Acid Nathan (0.7-2.0) mmol/L Calcium 9.5 (8.4-10.2) mg/dL Total Bilirubin 0.8 (0.2-1.3) mg/dL AST 21 (17-59) U/L ALT 12 (4-49) U/L Alkaline Phosphatase 112 (38-126) U/L Lactate Dehydrogenase 430 (313-618) U/L Troponin I (0.000-0.034) ng/mL Total Protein 6.9 (6.3-8.2) g/dL Albumin 4.0 (3.5-5.0) g/dL Lipase 133 (23-300) U/L TSH (0.465-4.680) mIU/L Cortisol ug/dL Urine Color Urine Appearance (Clear) Urine pH (5.0-8.0) Ur Specific Elmer (1.001-1.035) Urine Protein (Negative) Urine Glucose (UA) (Negative) Urine Ketones (Negative) Urine Blood (Negative) Urine Nitrite (Negative) Urine Bilirubin (Negative) Urine Urobilinogen (<2.0) mg/dL Ur Leukocyte Esterase (Negative) Urine RBC (0-5) /hpf Urine WBC (0-5) /hpf Hyaline Casts (0-2) /lpf Urine Mucus (None) /hpf 03/26/20 03/26/20 03/26/20 Range/Units 20:36 20:36 20:36 WBC (3.8-10.6) k/uL RBC (4.30-5.90) m/uL Hgb (13.0-17.5) gm/dL Hct (39.0-53.0) % MCV (80.0-100.0) fL MCH (25.0-35.0) pg MCHC (31.0-37.0) g/dL RDW (11.5-15.5) % Plt Count (150-450) k/uL Neutrophils % % Lymphocytes % % Monocytes % % Eosinophils % % Basophils % % Neutrophils # (1.3-7.7) k/uL Lymphocytes # (1.0-4.8) k/uL Monocytes # (0-1.0) k/uL Eosinophils # (0-0.7) k/uL Basophils # (0-0.2) k/uL PT (9.0-12.0) sec INR (<1.2) APTT (22.0-30.0) sec Sodium (137-145) mmol/L Potassium (3.5-5.1) mmol/L Chloride (98-107) mmol/L Carbon Dioxide (22-30) mmol/L Anion Gap mmol/L BUN (9-20) mg/dL Creatinine (0.66-1.25) mg/dL Est GFR (CKD-EPI)AfAm (>60 ml/min/1.73 sqM) Est GFR (CKD-EPI)NonAf (>60 ml/min/1.73 sqM) Glucose (74-99) mg/dL Plasma Lactic Acid Nathan 1.2 (0.7-2.0) mmol/L Calcium (8.4-10.2) mg/dL Total Bilirubin (0.2-1.3) mg/dL AST (17-59) U/L ALT (4-49) U/L Alkaline Phosphatase (38-126) U/L Lactate Dehydrogenase (313-618) U/L Troponin I <0.012 (0.000-0.034) ng/mL Total Protein (6.3-8.2) g/dL Albumin (3.5-5.0) g/dL Lipase (23-300) U/L TSH 1.110 (0.465-4.680) mIU/L Cortisol 28 ug/dL Urine Color Urine Appearance (Clear) Urine pH (5.0-8.0) Ur Specific [place] (1.001-1.035) Urine Protein (Negative) Urine Glucose (UA) (Negative) Urine Ketones (Negative) Urine Blood (Negative) Urine Nitrite (Negative) Urine Bilirubin (Negative) Urine Urobilinogen (<2.0) mg/dL Ur Leukocyte Esterase (Negative) Urine RBC (0-5) /hpf Urine WBC (0-5) /hpf Hyaline Casts (0-2) /lpf Urine Mucus (None) /hpf 03/26/20 Range/Units 22:13 WBC (3.8-10.6) k/uL RBC (4.30-5.90) m/uL Hgb (13.0-17.5) gm/dL Hct (39.0-53.0) % MCV (80.0-100.0) fL MCH (25.0-35.0) pg MCHC (31.0-37.0) g/dL RDW (11.5-15.5) % Plt Count (150-450) k/uL Neutrophils % % Lymphocytes % % Monocytes % % Eosinophils % % Basophils % % Neutrophils # (1.3-7.7) k/uL Lymphocytes # (1.0-4.8) k/uL Monocytes # (0-1.0) k/uL Eosinophils # (0-0.7) k/uL Basophils # (0-0.2) k/uL PT (9.0-12.0) sec INR (<1.2) APTT (22.0-30.0) sec Sodium (137-145) mmol/L Potassium (3.5-5.1) mmol/L Chloride (98-107) mmol/L Carbon Dioxide (22-30) mmol/L Anion Gap mmol/L BUN (9-20) mg/dL Creatinine (0.66-1.25) mg/dL Est GFR (CKD-EPI)AfAm (>60 ml/min/1.73 sqM) Est GFR (CKD-EPI)NonAf (>60 ml/min/1.73 sqM) Glucose (74-99) mg/dL Plasma Lactic Acid Nathan (0.7-2.0) mmol/L Calcium (8.4-10.2) mg/dL Total Bilirubin (0.2-1.3) mg/dL AST (17-59) U/L ALT (4-49) U/L Alkaline Phosphatase (38-126) U/L Lactate Dehydrogenase (313-618) U/L Troponin I (0.000-0.034) ng/mL Total Protein (6.3-8.2) g/dL Albumin (3.5-5.0) g/dL Lipase (23-300) U/L TSH (0.465-4.680) mIU/L Cortisol ug/dL Urine Color Yellow Urine Appearance Clear (Clear) Urine pH 5.0 (5.0-8.0) Ur Specific [place] 1.018 (1.001-1.035) Urine Protein Negative (Negative) Urine Glucose (UA) Negative (Negative) Urine Ketones 1+ H (Negative) Urine Blood Trace H (Negative) Urine Nitrite Negative (Negative) Urine Bilirubin Negative (Negative) Urine Urobilinogen <2.0 (<2.0) mg/dL Ur Leukocyte Esterase Negative (Negative) Urine RBC 2 (0-5) /hpf Urine WBC <1 (0-5) /hpf Hyaline Casts 1 (0-2) /lpf Urine Mucus Rare H (None) /hpf - EKG Data EKG Comments: EKG at 2017 demonstrates a normal sinus rhythm with ventricular rate of 77. AL interval 122. QRS 94. QTC of 420. No acute ST segment elevations or depressions concerning for ischemic changes Disposition Clinical Impression: Fever, Chemotherapy follow-up examination, Nausea & vomiting Disposition: ADMITTED IP TO THIS [facility] Condition: Stable Is patient prescribed a controlled substance at d/c from ED?: No Decision to Admit Reason: Admit from EC Decision Date: 03/26/20 Decision Time: 22:51
--- NOTE | 2020-03-26 22:54 | CT ---
EXAMINATION TYPE: CT abdomen pelvis wo con DATE OF EXAM: 03/26/2020 COMPARISON: 11/25/2015 HISTORY: Fever and abdominal pain. CT DLP: 350.4 mGycm Automated exposure control for dose reduction was used. Exam performed with no contrast. Lung bases are clear of infiltrate. There is mild subsegmental atelectasis at the posterior lung base s. Heart size is normal. There is no pericardial effusion. Liver shows no focal defect. Gallbladder appears normal. Spleen is intact. There is no evidence of pa ncreatic mass. Stomach is intact. The bile ducts are not dilated. There is no adrenal mass. There are clips apparently from left nephrectomy. Right kidney shows cortic al cysts in the parapelvic region and lower pole that measure 3.5 cm. There is no hydronephrosis. Rig ht ureter is not dilated. There is no retroperitoneal adenopathy. There are multiple sigmoid divertic david. There is no sign of diverticulitis. Bladder is almost empty. Prostate is moderately enlarged and measures 6.3 cm. There is no inguinal hernia. There is no free fluid in the pelvis. There is mild un iform urinary bladder wall thickening. There is no mesenteric edema. There is no ascites or free air. I see no sign of a bowel obstruction. Appendix is not seen. There is no sign of thickened appendix. There is severe narrowing of the L2-3 disc space with osteosclerosis. The bony pelvis appears intact. There is vacuum disc at L5-S1. IMPRESSION: There is sigmoid diverticulosis without diverticulitis. Right renal cysts. No sign of right renal obs truction. Renal cysts appear increased compared to old exam. There is left nephrectomy compared to ol d exam. No acute abnormality within the abdomen pelvis. Enlarged prostate unchanged. Mild urinary cora dder wall thickening suggestive of some chronic cystitis unchanged..
[2020-03-26] MEDS ORDERED: NALOXONE 0.4 MG/ML 1 ML VIAL IV PRN (23:22)
[2020-03-27] MEDS: SODIUM CHLORIDE 0.9% 1,000 ML IV SCH (00:28)
[2020-03-27 08:47] LABS: Basophils % (A) 1 %; Eosinophils # (A) 0.3 k/uL (0-0.7); Eosinophils % (A) 6 %; HCT 37.6 % (39.0-53.0); HGB 12.8 gm/dL (13.0-17.5); Lymphocytes # (A) 1.4 k/uL (1.0-4.8); Lymphocytes % (A) 26 %; MCH 31.9 pg (25.0-35.0); MCHC 34.1 g/dL (31.0-37.0); MCV 93.6 fL (80.0-100.0); Mean Platelet Volume 8.4; Monocytes # (A) 0.5 k/uL (0-1.0); Monocytes % (A) 10 %; Neutrophils # (A) 2.8 k/uL (1.3-7.7); Neutrophils % (A) 53 %; Platelet Count 220 k/uL (150-450); RBC 4.02 m/uL (4.30-5.90); RDW 15.9 % (11.5-15.5); WBC 5.3 k/uL (3.8-10.6)
[2020-03-27] MEDS: ACETAMINOPHEN TAB 325 MG TAB PO PRN ×2 (08:51→15:09)
[2020-03-27 08:54] LABS: Calcium 8.7 mg/dL (8.4-10.2)
[2020-03-27] MEDS ORDERED: DICLOFENAC SODIUM GEL 100 GM TUBE TOPICAL PRN (13:05)
[2020-03-27] MEDS ORDERED: NITROGLYCERIN SL TABS 0.4 MG TAB SUBLINGUAL PRN (13:05)
[2020-03-27] MEDS ORDERED: PROCHLORPERAZINE 10 MG TAB PO PRN (13:05)
[2020-03-27] MEDS ORDERED: HYDROcodone/APAP 5-325MG 1 EACH TAB PO PRN (13:05)
--- NOTE | 2020-03-27 14:49 | P.HPIM ---
History of Present Illness Patient was [id number] male came in because of fever. Patient received chemo therapy and Monday for metastatic renal cell cancer. Patient is comparing of abdominal pain presently resolved at this time along with nausea vomiting. Patient's abdominal pain was diffuse nonradiating mild and dull. Patient was also complaining of headache but no photophobia phonophobia local rigidity or neck stiffness. Patient denied any cough patient Denied any dysuria or patient had workup with a CT of the abdomen and pelvis brain CT and chest x-ray all of which were benign patient has some diverticulosis and the CT of the abdomen wit hout any diverticulitis. Patient is afebrile since morning. Review of Systems REVIEW OF SYSTEMS: CONSTITUTIONAL: No fever, no malaise, no fatigue. HEENT: No recent visual problems or hearing problems. Denied any sore throat. CARDIOVASCULAR: No chest pain, orthopnea, PND, no palpitations, no syncope. PULMONARY: No shortness of breath, no cough, no hemoptysis. GASTROINTESTINAL: As mentioned in HPI NEUROLOGICAL: no weakness, no numbness. HEMATOLOGICAL: Denies any bleeding or petechiae. GENITOURINARY: Denies any burning micturition, frequency, or urgency. MUSCULOSKELETAL/RHEUMATOLOGICAL: Denies any joint pain, swelling, or any muscle pain. ENDOCRINE: Denies any polyuria or polydipsia. The rest of the 14-point review of systems is negative. Past Medical History Past Medical History: Cancer, Chest Pain / Angina, GERD/Reflux, Hyperlipidemia, Hypertension, Osteoarthritis (OA), Prostate Disorder, Renal Disease Additional Past Medical History / Comment(s): L renal cancer with nephrectom y/mets L lung and pt states spot on sternum is gone now-currently taking oral chemotherapy, chronic renal failure stage II, lower leg edema thought to be due to HTN medications, BPH, chronic low back pain, arthritis vs gout r great toe. 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 Past Anesthesia/Blood Transfusion Reactions: No Reported Reaction Past Psychological History: Depression Smoking Status: Former smoker Past Alcohol Use History: None Reported Past Drug Use History: Marijuana - Past Family History Father Family Medical History: Cancer, Hypertension, Myocardial Infarction ([place]) Additional Family Medical History / Comment(s): SKIN CANCER Mother Family Medical History: Cancer Additional Family Medical History / Comment(s): breast cancer - throat cancer Sister(s) Family Medical History: Cancer Additional Family Medical History / Comment(s): SKIN CANCER Medications and Allergies Home Medications Medication Instructions Recorded Confirmed Type Metoprolol Tartrate 25 mg PO BID 10/12/17 03/26/20 History Tamsulosin HCl [Flomax] 0.4 mg PO HS 10/12/17 03/26/20 History Aspirin [Adult Low Dose Aspirin EC] 81 mg PO HS 02/29/20 03/26/20 History Cholecalciferol [Vitamin D3 (25 5,000 unit PO DAILY 02/29/20 03/26/20 History Mcg = 1000 Iu)] Prochlorperazine Maleate 10 mg PO Q6H PRN 02/29/20 03/26/20 History Atorvastatin [Lipitor] 40 mg PO HS #90 tablet 03/02/20 03/26/20 Rx Clopidogrel [Plavix] 75 mg PO DAILY #90 tab 03/02/20 03/26/20 Rx Isosorbide Mononitrate ER [Imdur] 30 mg PO DAILY #90 tab.er.24h 03/02/20 03/26/20 Rx Nitroglycerin Sl Tabs [Nitrostat] 0.4 mg SUBLINGUAL Q5M PRN #25 tab 03/02/20 03/26/20 Rx Diclofenac Sodium [Voltaren Gel] 1 applic TOPICAL BID PRN 03/26/20 03/26/20 History HYDROcodone/APAP 5-325MG [[place] 1 tab PO Q6HR PRN 03/26/20 03/26/20 History 5-325] Ketorolac 0.5% Ophth Soln [Acular] 1 drop RIGHT EYE BID 03/26/20 03/26/20 History Loteprednol Etabonate [Inveltys] 1 drop RIGHT EYE BID 03/26/20 03/26/20 History Allergies Allergy/AdvReac Type Severity Reaction Status Date / Time atorvastatin calcium Allergy Unknown Verified 03/26/20 23:17 [From Lipitor] clindamycin Allergy Unknown Verified 03/26/20 23:17 Physical Exam Vitals: Vital Signs Temp Pulse Pulse Resp BP BP Pulse Ox 03/27/20 07:00 97.8 F 70 18 132/67 98 03/27/20 01:12 98.4 F 78 18 165/81 99 03/26/20 23:27 98.8 F 74 16 133/77 03/26/20 22:11 99.8 F H 76 18 156/76 98 03/26/20 20:27 101.6 F H 03/26/20 19:28 100.4 F H 81 18 158/76 96 Intake and Output 03/26/20 03/27/20 03/27/20 22:59 06:59 14:59 Other: # Voids 1 Weight 54.431 kg 54.431 kg PHYSICAL EXAMINATION: GENERAL: The patient is alert and oriented x3, not in any acute distress. He does have resting tremor thin built HEENT: Pupils are round and equally reacting to light. EOMI. No scleral icterus. No conjunctival pallor. Normocephalic, atraumatic. No pharyngeal erythema. No thyromegaly. CARDIOVASCULAR: S1 and S2 present. No murmurs, rubs, or gallops. PULMONARY: Chest is clear to auscultation, no wheezing or crackles. ABDOMEN: Soft, nontender, nondistended, normoactive bowel sounds. No palpable organomegaly. MUSCULOSKELETAL: No joint swelling or deformity. EXTREMITIES: No cyanosis, clubbing, or pedal edema. NEUROLOGICAL: Gross neurological examination did not reveal any focal deficits. SKIN: No rashes. Results CBC & Chem 7: 03/27/20 07:48 03/27/20 07:48 Labs: Abnormal Lab Results - Last 24 Hours (Table) 03/26/20 03/26/20 03/26/20 Range/Units 20:36 20:36 22:13 RBC (4.30-5.90) m/uL Hgb 12.8 L (13.0-17.5) gm/dL Hct (39.0-53.0) % RDW 15.8 H (11.5-15.5) % Lymphocytes # 0.7 L (1.0-4.8) k/uL Sodium 134 L (137-145) mmol/L BUN 21 H (9-20) mg/dL Creatinine 1.51 H (0.66-1.25) mg/dL Glucose 104 H (74-99) mg/dL Urine Ketones 1+ H (Negative) Urine Blood Trace H (Negative) Urine Mucus Rare H (None) /hpf 03/27/20 03/27/20 Range/Units 07:48 07:48 RBC 4.02 L (4.30-5.90) m/uL Hgb 12.8 L (13.0-17.5) gm/dL Hct 37.6 L (39.0-53.0) % RDW 15.9 H (11.5-15.5) % Lymphocytes # (1.0-4.8) k/uL Sodium (137-145) mmol/L BUN (9-20) mg/dL Creatinine 1.26 H (0.66-1.25) mg/dL Glucose (74-99) mg/dL Urine Ketones (Negative) Urine Blood (Negative) Urine Mucus (None) /hpf Thrombosis Risk Factor Assmnt - Choose All That Apply Any of the Below Risk Factors Present?: No Other Risk Factors: Yes Each Risk Factor Represents 3 Points: Age 75 years or older Other congenital or acquired thrombophilia - If yes, enter type in comment: No Thrombosis Risk Factor Assessment Total Risk Factor Score: 3 Thrombosis Risk Factor Assessment Level: Moderate Risk Assessment and Plan Plan: Fever: Workup for sepsis is negative. His fever is probably related to his cancer itself. Infectious disease will evaluate the patient. -Abdominal pain nausea vomiting: Secondary to mucositis from chemotherapy supportive therapy with IV fluids, Protonix -Acute renal failure secondary to nausea vomiting which improved with IV fluids patient baseline creatinine is around 1.01 patient had a nephrectomy in the past on admission his creatinine is 1.5 and now improved to 1.26 -Hyperemic hyponatremia from nausea vomiting improved with IV fluids -Renal cell cancer metastatic: Management as per oncology, status post left nephrectomy -Hyperlipidemia next and heparin hypertension -Gastroesophageal reflux disease -Benign prostatic hypertrophy and chronic cystitis.
[2020-03-27 14:52] VITALS: BMI 18.8
--- NOTE | 2020-03-27 15:37 | P.CONS ---
<Kailee Pablo - Last Filed: 03/27/20 22:08> History of Present Illness - Reason for Consult Consult date: 03/27/20 RCC Requesting physician: Tatianna Blanco - Chief Complaint Fever and ABdominal Pain - History of Present Illness Mr. Mckeon is a pleasant WM, with a long standing history of BPH. He was being followed at the [facility] in [place], and transfered care to Dr. Dodge locally in [place] 2015. On 11/25/[address] AP without contrast done for abdominal pain. This revealed enlargement of the left kidney with possible mass in the superior pole. There was also a possibility of thrombus in the renal vein. MRI on 01/27/16 showed a heterogenous enhancing mass, 3.2 x 3.8 x 3.2 cm in the upper to mid pole level left kidney. There appeared to be a renal vein thrombus. CT chest on 02/29/16 was negative for evidence of metastasis. He had a left nephrectomy at the [facility] in 04/03. Pathology report is not available to us, and the patient states he does not know the type of cancer. He was placed on surveilence and states that his next scan in or 07/03 showed metastasis to the sternum and the lungs. However he has not been started on treatment yet. He had a follow up scans in 02/01 and was told that there was progression. Due to porximity, he decided to come here for further care. Records were ultimately obtained from the [facility], confirming metastatic RCC. He was started on Votrient in 04/03 He had to decrease his to 50% due to abdominal pain, diarrhea, SCHMIDT and elevated BP. 05/17/17-Pt here today for acute visit, he is having abd pain, started 5 days ago, has been persistent, all over, aching, he has not taken votrient for 2 days now, he thinks the pain in his stomach is less since stopping. He has been nauseated, threw up pepto this AM, little to no oral intake for several days, st ates "black stool" x 3-4 days, consistency of applesauce, 3-4 episodes a day, foul odor, he denies visible blood, his urine is yellow. He is SOB on exertion, not progressive, SCHMIDT have returned, denies dizziness, palpitations, swelling. He initiallly tolerated the lower dose better, but again developed symptoms ( as above). Stool and urine testing was negative. He was given hydration, and Votrient was held. 06/08/17-Pt resumed votrient 1 week ago, 400mg/day, no missed doses, he is more tired, LUQ soreness, intermittent, he has been trying the antiemetic, no vomiting, he has lost 10 lbs since starting the drug, no F, oral irritation, SOB or cough, diarrhea, constipation, bleeding, swelling, some dry skin on feet but no open areas. No other physical c/o. 06/27/17- Votrient dose was increased to 600/d 07/11/17- Votrient was increased back to 800 mg/d 08/22/17-patient is seen today for an acute visit, he is experiencing bilateral pedal swelling 2 days, persistent, not progressive, patient denies any pain in the lower extremities, scheduled for bilateral lower extremity Doppler today, he did hold his Votrient yesterday and today, patient's appetite is progressively poor, his tremor is slightly increased, patient in general does not feel very well, he is tired and easily fatigued,denies fevers, sore throat, cough, does get short of breath on exertion, moving slowly, feels weak, no current nausea or vomiting, no abdominal pain or cramping, no current changes in bowel or bladder habits, denies pain. Patient has been taking Votrient 800 mg 3 days, he will then take 600mg x 1 day. As above. Votrient was held at the 08/22/17 visit. Dopplers revealed a left GSV thrombus, not close to the SFJ. His ASA was increased to 325 mg/d. BNP was normal. He had another visit to the ER on 08/31/17 with dopplers negative. He was started on Lasix PO, with improvement. He was started back on Votrient 600 mg/d at his visit on 09/04/17 The pt reported good tolerance till about 12/23/17, when he developed abdominal pain and diarrhea. He stopped the votrient for 2 days with resolution of symptoms, and resumed on 12/26/17. He developed progressive weakness and stopped Votrient again around 03/30/18, with improvement. he resumed it after about 2 weeks. He did not f/u in 07/05 as he says he did not get [facility]. He stopped it again for about 3 week, around late 09/04, due to progressive fatigue. He resumed it subsequently He stopped it for about 10 days in early 01/04. he states he did so as he was feeling overwhelmed due to personal issues, and not due to any specific symptoms. He subsequently resumed it. Since 01/04 he has stopped medication about 4 times, but only for 2-3 days at a time, usually for fatigue and loss of appetite. CT scans in 04.05 showed increase in size of the sternal lesion. However, the pt was off his regimen at the time, and reported progressive decrease in size since resuming. scans in late 2018 showed stability 02/03/20: The patient continues to struggle with side effects related to the medi cation. Since his visit in 11/07 he has not been able to take 800 mg dose other than for one day. His had to have intermittent dose interruptions because of abdominal cramps nausea and diarrhea. He has been off medication now for the last week due to the same. He has mild dryness of the skin of his feet, and is using moisturizing lotion. no oral ulcers. Appetite is improving, off the medication. He had noted possibly some increase in size of his sternal mass. 02/05/20 - the patient was changed to Cabozantinib after his visit in 02/[address] scan had shown mild increase in his sternal mass and the patient had not been able to take Votrient at a full dose consistently. 02/26/20: Tolerating treatment well but new pain intermittent /10 with movement and pulling sharp up to 9/10. Lidocain patch on and helping him sleeve. 03/05/20-Pt here today for routine f/u on cabometyx, he has not missed any doses, started around 02/18, he takes with a nausea pill, had some mild diarrhea that has resolved. He was worked up at last visit for right shoulder/chest discomfort. Patient is noted on x-rays to have what looks to be a chronic rotator cuff tear. Patient was in the emergency department 02/28 with complaints of radiating chest pain with numbness on the back of his arms, he was diagnosed with a NSTEMI last week, serial elevated troponins noted, had cardiac cath, no stents needed, medically managed by Cardiology. Because of the [place] recently after initiation of Cabomytx this was discontinued. He was then started on immune therapy with opdivo. He is status post cycle one on 03/20/20. Overall tolerated fine although presented today with complaints of fevers and abdominal pain. CT abdomen and pelvis reviewed. Chest xray reviewed. [facility] cultures pending. Review of Systems A 14 point review of systems assessed and completed and all negative except HPI Past Medical History Past Medical History: Cancer, Chest Pain / Angina, GERD/Reflux, Hyperlipidemia, Hypertension, Osteoarthritis (OA), Prostate Disorder, Renal Disease Additional Past Medical History / Comment(s): L renal cancer with nephrectomy/mets L lung and pt states spot on sternum is gone now-currently taking oral chemotherapy, chronic renal failure stage II, lower leg edema thought to be due to HTN medications, BPH, chronic low back pain, arthritis vs gout r great toe. 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 Past Anesthesia/Blood Transfusion Reactions: No Reported Reaction Past Psychological History: Depression Smoking Status: Former smoker Past Alcohol Use History: None Reported Past Drug Use History: Marijuana - Past Family History Father Family Medical History: Cancer, Hypertension, Myocardial Infarction ([place]) Additional Family Medical History / Comment(s): SKIN CANCER Mother Family Medical History: Cancer Additional Family Medical History / Comment(s): breast cancer - throat cancer Sister(s) Family Medical History: Cancer Additional Family Medical History / Comment(s): SKIN CANCER Medications and Allergies Home Medications Medication Instructions Recorded Confirmed Type Metoprolol Tartrate 25 mg PO BID 10/12/17 03/26/20 History Tamsulosin HCl [Flomax] 0.4 mg PO HS 10/12/17 03/26/20 History Aspirin [Adult Low Dose Aspirin EC] 81 mg PO HS 02/29/20 03/26/20 History Cholecalciferol [Vitamin D3 (25 5,000 unit PO DAILY 02/29/20 03/26/20 History Mcg = 1000 Iu)] Prochlorperazine Maleate 10 mg PO Q6H PRN 02/29/20 03/26/20 History Atorvastatin [Lipitor] 40 mg PO HS #90 tablet 03/02/20 03/26/20 Rx Clopidogrel [Plavix] 75 mg PO DAILY #90 tab 03/02/20 03/26/20 Rx Isosorbide Mononitrate ER [Imdur] 30 mg PO DAILY #90 tab.er.24h 03/02/20 03/26/20 Rx Nitroglycerin Sl Tabs [Nitrostat] 0.4 mg SUBLINGUAL Q5M PRN #25 tab 03/02/20 03/26/20 Rx Diclofenac Sodium [Voltaren Gel] 1 applic TOPICAL BID PRN 03/26/20 03/26/20 History HYDROcodone/APAP 5-325MG [[place] 1 tab PO Q6HR PRN 03/26/20 03/26/20 History 5-325] Ketorolac 0.5% Ophth Soln [Acular 1 drop RIGHT EYE BID 03/26/20 03/26/20 History 0.5%] Loteprednol Etabonate [Inveltys] 1 drop RIGHT EYE BID 03/26/20 03/26/20 History Allergies Allergy/AdvReac Type Severity Reaction Status Date / Time atorvastatin calcium Allergy Unknown Verified 03/26/20 23:17 [From Lipitor] clindamycin Allergy Unknown Verified 03/26/20 23:17 Physical Exam Vitals: Vital Signs Temp Pulse Pulse Resp BP BP BP 03/27/20 15:07 98.5 F 77 16 125/72 03/27/20 07:00 97.8 F 70 18 132/67 03/27/20 01:12 98.4 F 78 18 165/81 03/26/20 23:27 98.8 F 74 16 133/77 03/26/20 22:11 99.8 F H 76 18 156/76 03/26/20 20:27 101.6 F H 03/26/20 19:28 100.4 F H 81 18 158/76 Pulse Ox 03/27/20 15:07 03/27/20 07:00 98 03/27/20 01:12 99 03/26/20 23:27 03/26/20 22:11 98 03/26/20 20:27 03/26/20 19:28 96 Intake and Output 03/27/20 03/27/20 03/27/20 06:59 14:59 22:59 Other: # Voids 1 Weight 54.431 kg 54.431 kg - Constitutional General appearance: average body habitus, no acute distress - EENT Eyes: EOMI, dentition normal ENT: hard of hearing, NA/AT, normal oropharynx - Neck Neck: normal ROM - Respiratory Respiratory: bilateral: CTA (no increased effort) - Cardiovascular Rhythm: regular Heart sounds: normal: S1, S2 - Gastrointestinal General gastrointestinal: normal bowel sounds, soft, tenderness - Integumentary Integumentary: pale - Neurologic Neurologic: CNII-XII intact - Musculoskeletal Musculoskeletal: generalized weakness, strength equal bilaterally - Psychiatric Psychiatric: A&O x's 3, appropriate affect, intact judgment & insight Results CBC & Chem 7: 03/27/20 07:48 03/27/20 07:48 Labs: Abnormal Lab Results - Last 24 Hours (Table) 03/26/20 03/26/20 03/26/20 Range/Units 20:36 20:36 22:13 RBC (4.30-5.90) m/uL Hgb 12.8 L (13.0-17.5) gm/dL Hct (39.0-53.0) % RDW 15.8 H (11.5-15.5) % Lymphocytes # 0.7 L (1.0-4.8) k/uL Sodium 134 L (137-145) mmol/L BUN 21 H (9-20) mg/dL Creatinine 1.51 H (0.66-1.25) mg/dL Glucose 104 H (74-99) mg/dL Urine Ketones 1+ H (Negative) Urine Blood Trace H (Negative) Urine Mucus Rare H (None) /hpf 03/27/20 03/27/20 Range/Units 07:48 07:48 RBC 4.02 L (4.30-5.90) m/uL Hgb 12.8 L (13.0-17.5) gm/dL Hct 37.6 L (39.0-53.0) % RDW 15.9 H (11.5-15.5) % Lymphocytes # (1.0-4.8) k/uL Sodium (137-145) mmol/L BUN (9-20) mg/dL Creatinine 1.26 H (0.66-1.25) mg/dL Glucose (74-99) mg/dL Urine Ketones (Negative) Urine Blood (Negative) Urine Mucus (None) /hpf Chest x-ray: report reviewed CT scan - abdomen: report reviewed CT Scan - head: report reviewed CT scan - pelvis: report reviewed Assessment and Plan Plan: Assessment and Recommendations: Renal Cell Carcinoma with metastatic disease to lung and bones: - Recently started immune therapy with opdivo Fever: T Max 101.6 - Infectious disease to evaluate - [facility] cultures pending - No Obvious source at this time of infection, possible tumor fever (Although q uite high for tumor fever) - Afebrile today Abdominal Pain: - ? Diverticulitis - Monitor for immune related effects and diarrhea Vision Changes and Headache: - Fever versus other - Differential of metastatic disease versus immune related side effect most sensistive for evaluation by MRI - MRI Ordered Physician Attest: I have completed the full history and physical and agree with above dictation, dictated as a scribe. <Elizabet,Amador - Last Filed: 03/29/20 23:31> Results CBC & Chem 7: 03/28/20 02:22 03/28/20 02:22 Labs: Microbiology - Last 24 Hours (Table) 03/26/20 20:15 Blood Culture - Preliminary Blood No Growth after 72 hours 03/27/20 15:45 Stool Culture - Preliminary Stool Assessment and Plan Plan: Case d/w admitting service in detail
[2020-03-27] MEDS: KETOROLAC 0.5% OPHTH DROPS 5 ML BTL RIGHT EYE SCH (20:30)
[2020-03-27] MEDS: LOTEPREDNOL ETABONATE RIGHT EYE SCH (20:31)
[2020-03-27] MEDS: METOPROLOL TARTRATE 25 MG TAB PO SCH (20:31)
[2020-03-27] MEDS ORDERED: LOTEPREDNOL ETABONATE RIGHT EYE SCH ×2 (21:00)
[2020-03-27] MEDS ORDERED: ASPIRIN 81 MG PO SCH (21:00)
[2020-03-27] MEDS ORDERED: TAMSULOSIN 0.4 MG CAP.ER.24H PO SCH (21:00)
[2020-03-27] MEDS ORDERED: ATORVASTATIN 40 MG TAB PO SCH (21:00)
[2020-03-27] MEDS ORDERED: LOPERAMIDE 2 MG CAP PO PRN (23:35)
--- NOTE | 2020-03-28 00:06 | P.CONS ---
History of Present Illness - Reason for Consult Consult date: 03/27/20 Fever Requesting physician: Vitaliy Tellez - Chief Complaint Abdominal pain and vomiting and fever 1 day - History of Present Illness Patient is a 79-year-old male with a past medical history significant for metastatic renal carcinoma on the left side in this patient who is status post left nephrectomy, patient is currently on chemotherapy with last him about a week ago, patient did present to the hospital with abdominal pain mostly in the mid abdominal area more of a dull aching pain and tested for factor V and no radiation patient did have a nausea and episode of vomiting and also complaining of some diarrhea the last few days patient denies any blood or mucus in stools deficiency was unable to keep anything down and when his took his tempera ture and fever for the patient presented to the hospital on arrival to the ER the patient did have a fever of 101F, patient did have a normal white count and chest x-ray was reported to be negative, patient did have a UA that was negative patient also have CT of abdominal pelvis CT shows right renal cyst features of cystitis and no evidence of any acute intra-abdominal pathology Patient was admitted to the hospital infectious disease was consulted for further recommendation regarding the source of the fever and need for antibiotic therapy Review of Systems Positive point has been mentioned in the HPI rest of the systems are negative Past Medical History Past Medical History: Cancer, Chest Pain / Angina, GERD/Reflux, Hyperlipidemia, Hypertension, Osteoarthritis (OA), Prostate Disorder, Renal Disease Additional Past Medical History / Comment(s): L renal cancer with nephrectomy/mets L lung and pt states spot on sternum is gone now-currently taking oral chemotherapy, chronic renal failure stage II, lower leg edema thought to be due to HTN medications, BPH, chronic low back pain, arthritis vs gout r great toe. 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 Past Anesthesia/Blood Transfusion Reactions: No Reported Reaction Past Psychological History: Depression Smoking Status: Former smoker Past Alcohol Use History: None Reported Past Drug Use History: Marijuana - Past Family History Father Family Medical History: Cancer, Hypertension, Myocardial Infarction ([place]) Additional Family Medical History / Comment(s): SKIN CANCER Mother Family Medical History: Cancer Additional Family Medical History / Comment(s): breast cancer - throat cancer Sister(s) Family Medical History: Cancer Additional Family Medical History / Comment(s): SKIN CANCER Medications and Allergies Home Medications Medication Instructions Recorded Confirmed Type Metoprolol Tartrate 25 mg PO BID 10/12/17 03/26/20 History Tamsulosin HCl [Flomax] 0.4 mg PO HS 10/12/17 03/26/20 History Aspirin [Adult Low Dose Aspirin EC] 81 mg PO HS 02/29/20 03/26/20 History Cholecalciferol [Vitamin D3 (25 5,000 unit PO DAILY 02/29/20 03/26/20 History Mcg = 1000 Iu)] Prochlorperazine Maleate 10 mg PO Q6H PRN 02/29/20 03/26/20 History Atorvastatin [Lipitor] 40 mg PO HS #90 tablet 03/02/20 03/26/20 Rx Clopidogrel [Plavix] 75 mg PO DAILY #90 tab 03/02/20 03/26/20 Rx Isosorbide Mononitrate ER [Imdur] 30 mg PO DAILY #90 tab.er.24h 03/02/20 03/26/20 Rx Nitroglycerin Sl Tabs [Nitrostat] 0.4 mg SUBLINGUAL Q5M PRN #25 tab 03/02/20 03/26/20 Rx Diclofenac Sodium [Voltaren Gel] 1 applic TOPICAL BID PRN 03/26/20 03/26/20 His tory HYDROcodone/APAP 5-325MG [[place] 1 tab PO Q6HR PRN 03/26/20 03/26/20 History 5-325] Ketorolac 0.5% Ophth Soln [Acular] 1 drop RIGHT EYE BID 03/26/20 03/26/20 History Loteprednol Etabonate [Inveltys] 1 drop RIGHT EYE BID 03/26/20 03/26/20 History Allergies Allergy/AdvReac Type Severity Reaction Status Date / Time atorvastatin calcium Allergy Unknown Verified 03/26/20 23:17 [From Lipitor] clindamycin Allergy Unknown Verified 03/26/20 23:17 Physical Exam Vitals: Vital Signs Temp Pulse Pulse Resp BP BP BP 03/27/20 15:07 98.5 F 77 16 125/72 03/27/20 07:00 97.8 F 70 18 132/67 03/27/20 01:12 98.4 F 78 18 165/81 03/26/20 23:27 98.8 F 74 16 133/77 03/26/20 22:11 99.8 F H 76 18 156/76 03/26/20 20:27 101.6 F H 03/26/20 19:28 100.4 F H 81 18 158/76 Pulse Ox 03/27/20 15:07 03/27/20 07:00 98 03/27/20 01:12 99 03/26/20 23:27 03/26/20 22:11 98 03/26/20 20:27 03/26/20 19:28 96 Intake and Output 03/27/20 03/27/20 03/27/20 06:59 14:59 22:59 Other: # Voids 1 Weight 54.431 kg 54.431 kg GENERAL DESCRIPTION: Elderly male lying in bed, no distress. No tachypnea or accessory muscle of respiration use. HEENT: Shows Pallor , no scleral icterus. Oral mucous membrane is dry. No pharyngeal erythema or thrush NECK: Trachea central, no thyromegaly. LUNGS: Unlabored breathing. Decreased breath sounds at the base. No wheeze or crackle. HEART: S1, S2, regular rate and rhythm. No loud murmur ABDOMEN: Soft, no tenderness , guarding or rigidity, no organomegaly EXTREMITIES: No edema of feet. SKIN: No rash, no masses palpable. NEUROLOGICAL: The patient is awake, alert, oriented x3, mood and affect normal. Results CBC & Chem 7: 03/27/20 07:48 03/27/20 07:48 Labs: Abnormal Lab Results - Last 24 Hours (Table) 03/26/20 03/26/20 03/26/20 Range/Units 20:36 20:36 22:13 RBC (4.30-5.90) m/uL Hgb 12.8 L (13.0-17.5) gm/dL Hct (39.0-53.0) % RDW 15.8 H (11.5-15.5) % Lymphocytes # 0.7 L (1.0-4.8) k/uL Sodium 134 L (137-145) mmol/L BUN 21 H (9-20) mg/dL Creatinine 1.51 H (0.66-1.25) mg/dL Glucose 104 H (74-99) mg/dL Urine Ketones 1+ H (Negative) Urine Blood Trace H (Negative) Urine Mucus Rare H (None) /hpf 03/27/20 03/27/20 Range/Units 07:48 07:48 RBC 4.02 L (4.30-5.90) m/uL Hgb 12.8 L (13.0-17.5) gm/dL Hct 37.6 L (39.0-53.0) % RDW 15.9 H (11.5-15.5) % Lymphocytes # (1.0-4.8) k/uL Sodium (137-145) mmol/L BUN (9-20) mg/dL Creatinine 1.26 H (0.66-1.25) mg/dL Glucose (74-99) mg/dL Urine Ketones (Negative) Urine Blood (Negative) Urine Mucus (None) /hpf Assessment and Plan Assessment: 1- patient presented to hospital with fever predominantly GI symptoms of No appetite nausea vomiting diarrhea along with some abdominal pain in this patient who did have a fever of 101 [place] however did have a normal white count CT of abdominal pelvis did not show any acute findings with subsequent resolution of his fever And improvement in his symptoms without antibiotic therapy (1) Gastroenteritis Current Visit: Yes Status: Acute Code(s): K52.9 - NONINFECTIVE GASTROENTERITIS AND COLITIS, UNSPECIFIED SNOMED Code(s): 87121926 (2) Fever Current Visit: Yes Status: Acute Code(s): R50.9 - FEVER, UNSPECIFIED SNOMED Code(s): 295480438 Plan: 1- we will obtain stool studies 2- symptomatic treatment of his nausea and diarrhea 3- no need for systemic antibiotic therapy at this point 4- IV fluid We will follow on clinical condition and cultures to further adjust medication if needed Thank you for this consultation will follow this patient with you Time with Patient: Greater than 30
[2020-03-28] MEDS: SODIUM CHLORIDE 0.9% 1,000 ML IV SCH ×2 (00:42→08:42)
[2020-03-28 02:31] LABS: HCT 33.2 % (39.0-53.0); HGB 11.1 gm/dL (13.0-17.5); MCH 30.7 pg (25.0-35.0); MCHC 33.6 g/dL (31.0-37.0); MCV 91.6 fL (80.0-100.0); Mean Platelet Volume 8.2; Platelet Count 204 k/uL (150-450); RBC 3.62 m/uL (4.30-5.90); RDW 15.7 % (11.5-15.5); WBC 4.7 k/uL (3.8-10.6)
[2020-03-28 03:08] LABS: Calcium 8.6 mg/dL (8.4-10.2); Potassium 3.8 mmol/L (3.5-5.1)
[2020-03-28 07:39] VITALS: TEMP 98.7
[2020-03-28] MEDS ORDERED: CLOPIDOGREL 75 MG TAB PO SCH (09:00)
[2020-03-28] MEDS ORDERED: ISOSORBIDE MONONITRATE ER 30 MG TAB.ER.24H PO SCH (09:00)
[2020-03-28] MEDS: METOPROLOL TARTRATE 25 MG TAB PO SCH (09:14)
[2020-03-28] MEDS: KETOROLAC 0.5% OPHTH DROPS 5 ML BTL RIGHT EYE SCH (10:44)
[2020-03-28] MEDS: LOTEPREDNOL ETABONATE RIGHT EYE SCH (11:14)
--- NOTE | 2020-03-28 13:30 | P.DS ---
Providers Date of admission: 03/26/20 23:22 Attending physician: Valorie Terry Consults: 03/26/20 23:23 Consult Physician Urgent Consulting Provider: Amador Mcneal Consult Reason/Comments: metastatic renal ca on chemo Do you want consulting provider notified?: Yes, Notify in am 03/26/20 23:25 Consult Physician Urgent Consulting Provider: Mabel Mckeon Consult Reason/Comments: acute pyrexia, active chemo Do you want consulting provider notified?: Yes, Notify in am 03/28/20 04:29 Consult Physician Routine Consulting Provider: Cy Gonzalez Consult Reason/Comments: chest pains, silent MA last week Do you want consulting provider notified?: Already Contacted Primary care physician: [facility] Course: Patient was vehthixd-[id number] male came in because of fever. Patient received chemo therapy and Monday for metastatic renal cell cancer. Patient is comparing of abdominal pain presently resolved at this time along with nausea vomiting. Patient's abdominal pain was diffuse nonradiating mild and dull. Patient was also complaining of headache but no photophobia phonophobia local rigidity or neck stiffness. Patient denied any cough patient Denied any dysuria or patient had workup with a CT of the abdomen and pelvis brain CT and chest x-ray all of which were benign patient has some diverticulosis and the CT of the abdomen without any diverticulitis. Patient is afebrile since morning. 03/28/2020 Patient is afebrile. Patient was having nausea vomiting diarrhea patient the symptoms are probably seconded well gastrin enteritis. We will obtain a C. diff sample if that's negative after the MRI that was ordered by oncology patient will be discharged today. Patient will not require any antibiotics. Patient is feeling better patient's serum sodium did normalize but improved since admission. Serum creatinine improved at to 1.12 from 1.5 in with IV fluids. PHYSICAL EXAMINATION: GENERAL: The patient is alert and oriented x3, not in any acute distress. Well d eveloped, well nourished. HEENT: Pupils are round and equally reacting to light. EOMI. No scleral icterus. No conjunctival pallor. Normocephalic, atraumatic. No pharyngeal erythema. No thyromegaly. CARDIOVASCULAR: S1 and S2 present. No murmurs, rubs, or gallops. PULMONARY: Chest is clear to auscultation, no wheezing or crackles. ABDOMEN: Soft, nontender, nondistended, normoactive bowel sounds. No palpable organomegaly. MUSCULOSKELETAL: No joint swelling or deformity. EXTREMITIES: No cyanosis, clubbing, or pedal edema. NEUROLOGICAL: Gross neurological examination did not reveal any focal deficits. SKIN: No rashes. Assessment and Plan Plan: Fever: Workup for sepsis is negative. His fever is probably related to gastroenteritis, C. diff will be ruled out. Infectious disease will evaluate the patient. -Abdominal pain nausea vomiting: Secondary to viral gastroenteritis. Improved now -Acute renal failure secondary to nausea vomiting which improved with IV fluids patient baseline creatinine is around 1.01 patient had a nephrectomy in the past on admission his creatinine is 1.5 and now improved to 1.1 -Hyperemic hyponatremia from nausea vomiting improved with IV fluids -Renal cell cancer metastatic: Management as per oncology, status post left nephrectomy -Hyperlipidemia next and heparin hypertension -Gastroesophageal reflux disease -Benign prostatic hypertrophy and chronic cystitis. Patient Condition at Discharge: Stable Plan - Discharge Summary Discharge Rx Participant: No New Discharge Prescriptions: Continue Metoprolol Tartrate 25 mg PO BID Tamsulosin HCl [Flomax] 0.4 mg PO HS Prochlorperazine Maleate 10 mg PO Q6H PRN PRN Reason: Nausea Cholecalciferol [Vitamin D3 (25 Mcg = 1000 Iu)] 5,000 unit PO DAILY Aspirin [Adult Low Dose Aspirin EC] 81 mg PO HS Isosorbide Mononitrate ER [Imdur] 30 mg PO DAILY #90 tab.er.24h Atorvastatin [Lipitor] 40 mg PO HS #90 tablet Nitroglycerin Sl Tabs [Nitrostat] 0.4 mg SUBLINGUAL Q5M PRN #25 tab PRN Reason: Chest Pain Clopidogrel [Plavix] 75 mg PO DAILY #90 tab HYDROcodone/APAP 5-325MG [Mass[place] 5-325] 1 tab PO Q6HR PRN PRN Reason: Severe Pain Loteprednol Etabonate [Inveltys] 1 drop RIGHT EYE BID Ketorolac 0.5% Ophth Soln [Acular 0.5%] 1 drop RIGHT EYE BID Diclofenac Sodium [Voltaren Gel] 1 applic TOPICAL BID PRN PRN Reason: Pain Discharge Medication List Metoprolol Tartrate 25 mg PO BID 01/25/18 [History] Tamsulosin HCl [Flomax] 0.4 mg PO HS 10/12/17 [History] Aspirin [Adult Low Dose Aspirin EC] 81 mg PO HS 02/29/20 [History] Cholecalciferol [Vitamin D3 (25 Mcg = 1000 Iu)] 5,000 unit PO DAILY 02/29/20 [History] Prochlorperazine Maleate 10 mg PO Q6H PRN 02/29/20 [History] Atorvastatin [Lipitor] 40 mg PO HS #90 tablet 03/02/20 [Rx] Clopidogrel [Plavix] 75 mg PO DAILY #90 tab 03/02/20 [Rx] Isosorbide Mononitrate ER [Imdur] 30 mg PO DAILY #90 tab.er.24h 03/02/20 [Rx] Nitroglycerin Sl Tabs [Nitrostat] 0.4 mg SUBLINGUAL Q5M PRN #25 tab 03/02/20 [Rx] Diclofenac Sodium [Voltaren Gel] 1 applic TOPICAL BID PRN 03/26/20 [History] HYDROcodone/APAP 5-325MG [Mass[place] 5-325] 1 tab PO Q6HR PRN 03/26/20 [History] Ketorolac 0.5% Ophth Soln [Acular 0.5%] 1 drop RIGHT EYE BID 03/26/20 [History] Loteprednol Etabonate [Inveltys] 1 drop RIGHT EYE BID 03/26/20 [History] Follow up Appointment(s)/Referral(s): [facility],Clinic [Primary Care Provider] - 3 Days (office closed at time of dis charge. Please call to make appointment) Discharge Disposition: HOME SELF-CARE
--- NOTE | 2020-03-28 13:51 | MR ---
EXAMINATION TYPE: MR brain wo/w con DATE OF EXAM: 03/28/2020 1:36 PM COMPARISON: NONE HISTORY: metastatic cancer and recent immune therapy neurol, Vision changes and headaches CONTRAST: Patient received 5.5 mL intravenous Gadavist gadolinium contrast. Multiplanar and multispin-echo imaging of the brain was performed . Pre and post contrast enhanced i mages are obtained. The ventricles, basal cisterns and sulci overlying the cerebral convexities are mildly enlarged. There is evidence of mild periventricular white matter ischemic demyelination. Remote deep white matter insults are also noted. No acute edema is seen on diffusion weighted imaging. There is no evidence for midline shift or mass effect. Acute intracranial hemorrhage or extra-axial collection is not evident. No enhancing lesions are seen. Opacification left frontal sinus. IMPRESSION: Age-related atrophic and chronic small vessel ischemic change. No acute intracranial process at this time. No enhancing lesions are seen.
[2020-03-28 15:51] VITALS: BP 111/63; PULSE 73; RESP 18
--- NOTE | 2020-03-28 16:26 | PN ---
PROGRESS NOTE DATE OF SERVICE: 03/28/2020 REASON FOR FOLLOWUP: Fever, possible gastroenteritis. INTERVAL HISTORY: Patient is currently afebrile. The patient has been overall feeling better. Breathing comfortably. The patient denies having any chest pain or shortness of breath or cough. The patient denies any further nausea or vomiting. No abdominal pain and diarrhea has resolved. She did mentioned she did have soft bowel movement today. PHYSICAL EXAMINATION: Blood pressure 134/71 with a pulse of 73, temperature 98.7. He is 96% on room air. General description: The patient is an elderly male lying in bed in no distress. Respiratory system: Unlabored breathing, clear to auscultation anteriorly. Heart: S1, S2. Regular rate and rhythm. Abdomen soft, no tenderness. LABS: Hemoglobin 11.1, white count 4.7, BUN of 21, creatinine 1.12. Stool culture so far pending. DIAGNOSTIC IMPRESSION AND PLAN: Patient with fever with concern for possible viral gastroenteritis as so far culture has been negative and the patient's fever resolved without any antibiotic therapy. Recommend to continue symptomatic treatment and no need for systemic antibiotics. His questions, concerns were answered. MMODL / IJN: [id number] /
--- NOTE | 2020-03-28 16:38 | CONS ---
CONSULTATION This is a 79-year-old gentleman with history of coronary artery disease that has been advised medical therapy. He is admitted to hospital with fever. He is receiving chemotherapy for metastatic renal cancer and apparently had a myocardial infarction recently. Came in yesterday complaining of abdominal discomfort, headache and fever. He had a very low-grade fever on his initial presentation, but became afebrile subsequently. He denies chest pain, difficulty in breathing, palpitations, dizziness or syncope. PAST MEDICAL HISTORY: Significant for metastatic cancer, hypertension, dyslipidemia, GERD, osteoarthritis. Past surgical history significant for nephrectomy, chronic renal failure, hypertension. ALLERGIES: There are no known drug allergies. FAMILY HISTORY: Negative for premature coronary artery disease. SOCIAL HISTORY: Negative for current smoking, EtOH abuse, or drug abuse. REVIEW OF SYSTEMS: HEENT is unremarkable. Cardiac as described above. Respiratory negative. GI negative. GENITOURINARY negative. Allergy/Immunology: Negative. SKIN: Negative. Musculoskeletal significant for arthritis. Psychosocial negative. Endocrine negative. Derm negative. CONSTITUTIONAL negative. ONCOLOGICAL negative. EXAM: The patient is comfortable at rest. Vital signs are stable. There is no jugular venous distention. Chest exam reveals good air entry bilaterally. Heart exam reveals first and second heart sounds. No gallop. No murmur. Abdomen is soft, nontender. Exam of extremities did not reveal edema. Peripheral pulses are felt. Tropes are negative. Potassium is 3.8. Creatinine is 1.1. EKG does not reveal ischemic changes. The patient had a cardiac catheterization on March 01 when the patient presented with chest pain and his cardiac catheterization revealed mild-to- moderate three-vessel coronary artery disease for which she was advised medical therapy. ASSESSMENT: 1. Coronary artery disease on medical therapy. 2. Metastatic cancer. PLAN: Patient is doing well from cardiac standpoint. No further workup. He is on metoprolol 25 b.i.d., aspirin, atorvastatin and Plavix. Please continue those on discharge. MMODL / IJN: [id number] /
--- NOTE | 2020-03-29 07:59 | ECHOF ---
Referral Reason:LVF MEASUREMENTS -------- HEIGHT: 170.2 cm WEIGHT: 54.4 kg BP: 134/71 IVSd: 1.5 cm (0.6 - 1.1) LVIDd: 4.0 cm (3.9 - 5.3) LVPWd: 1.3 cm (0.6 - 1.1) IVSs: 1.8 cm LVIDs: 2.3 cm LVPWs: 1.9 cm FINDINGS -------- Limited Study There is moderate concentric left ventricular hypertrophy. Overall left ventricular systolic functi on is low-normal with, an EF between 50 - 55 %. Trace to mild aortic regurgitation. The aortic root is mildy dilated. CONCLUSIONS -------- 1. Limited Study 2. There is moderate concentric left ventricular hypertrophy. 3. Overall left ventricular systolic function is low-normal with, an EF between 50 - 55 %. 4. Trace to mild aortic regurgitation. 5. The aortic root is mildy dilated. SAP BASIS CONSULTANT: Myriam Cho [facility]
== END 2020-03-28 16:21 | disposition home or self-care (01) | DRG 392 ==
LOC: EC 19:23 → 4SSUR 23:22
PROVIDERS: ADMIT Hospitalist; ATTEND Hospitalist
DX: A08.4 Viral intestinal infection, unspecified (principal); C78.01 Secondary malignant neoplasm of right lung; C79.51 Secondary malignant neoplasm of bone; E87.1 Hypo-osmolality and hyponatremia; E78.5 Hyperlipidemia, unspecified; F32.9 Major depressive disorder, single episode, unspecified; I25.10 Atherosclerotic heart disease of native coronary artery without angina pectoris; N40.0 Benign prostatic hyperplasia without lower urinary tract symptoms; T45.1X5A Adverse effect of antineoplastic and immunosuppressive drugs, initial encounter; I12.9 Hypertensive chronic kidney disease with stage 1 through stage 4 chronic kidney disease, or unspecified chronic kidney disease; K12.31 Oral mucositis (ulcerative) due to antineoplastic therapy; K57.30 Diverticulosis of large intestine without perforation or abscess without bleeding; M75.100 Unspecified rotator cuff tear or rupture of unspecified shoulder, not specified as traumatic; N28.1 Cyst of kidney, acquired; N30.20 Other chronic cystitis without hematuria; N18.2 Chronic kidney disease, stage 2 (mild); M19.90 Unspecified osteoarthritis, unspecified site; K21.9 Gastro-esophageal reflux disease without esophagitis; Z11.59 Encounter for screening for other viral diseases; Z79.82 Long term (current) use of aspirin; Z79.02 Long term (current) use of antithrombotics/antiplatelets; Z79.899 Other long term (current) drug therapy; Z88.1 Allergy status to other antibiotic agents; Z88.8 Allergy status to other drugs, medicaments and biological substances; Z80.8 Family history of malignant neoplasm of other organs or systems; Z82.49 Family history of ischemic heart disease and other diseases of the circulatory system; Z80.3 Family history of malignant neoplasm of breast; Z85.528 Personal history of other malignant neoplasm of kidney; Z87.891 Personal history of nicotine dependence; Z90.5 Acquired absence of kidney; Z98.890 Other specified postprocedural states; I25.2 Old myocardial infarction
CPT/HCPCS: 36415; 70450; 70553; 71046; 74176; 80048; 80053; 81001; 82533; 83605; 83615; 83690; 84443; 84484; 85025; 85027; 85610; 85730; 86140; 87040; 87045; 87046; 93005; 93306; 96374; 99285

== ENCOUNTER 2020-08-28 12:01 | Observation (INO) | payer MEDICARE, OTHER ==
--- NOTE | 2020-08-28 12:35 | ED ---
Dizziness HPI - General Chief Complaint: Syncope Stated Complaint: chest pain, near syncope Time Seen by Provider: 08/28/20 12:10 Source: patient Mode of arrival: wheelchair Limitations: no limitations - History of Present Illness Initial Comments: The patient is a 79-year-old male with past medical history of renal cell cancer, metastatic to the sternum and lung on active chemo who presents to the emergency department after he had a syncopal episode. Patient states he was at work sitting in a chair. He had sudden onset of chest pain. He took a nitro and states shortly afterwards he passed out. States he slumped back into the chair. Did not fall and hit his head. He was unsure how long he was unconscious for but he states it couldn't have been too long. He denies any headaches or visual changes. No current chest pain or shortness of breath. Denies any abdominal pain. No numbness, tingling or weakness in his attorneys. Incident was unwitnessed however he does not believe he had a seizure. He did have an episode of nausea with vomiting when he became alert. No other alleviating, precipitating or modifying factors - Related Data Home Medications Medication Instructions Recorded Confirmed Metoprolol Tartrate 25 mg PO BID 10/12/17 08/28/20 Tamsulosin HCl [Flomax] 0.4 mg PO HS 10/12/17 08/28/20 Aspirin [Adult Low Dose Aspirin EC] 81 mg PO HS 02/29/20 08/28/20 Diclofenac Sodium [Voltaren Gel] 1 applic TOPICAL BID PRN 03/26/20 08/28/20 HYDROcodone/APAP 5-325MG [Ton[place] 1 tab PO Q6HR PRN 03/26/20 08/28/20 5-325] Pravastatin Sodium [Pravachol] 20 mg PO HS 08/28/20 08/28/20 Previous Rx's Medication Instructions Recorded Clopidogrel [Plavix] 75 mg PO DAILY #90 tab 03/02/20 Isosorbide Mononitrate ER [Imdur] 30 mg PO DAILY #90 tab.er.24h 03/02/20 Nitroglycerin Sl Tabs [Nitrostat] 0.4 mg SUBLINGUAL Q5M PRN #25 tab 03/02/20 Allergies Allergy/AdvReac Type Severity Reaction Status Date / Time atorvastatin calcium Allergy Unknown Verified 08/28/20 13:17 [From Lipitor] clindamycin Allergy Unknown Verified 08/28/20 13:17 Review of Systems ROS Statement: Those systems with pertinent positive or pertinent negative responses have been documented in the HPI. ROS Other: All systems not noted in ROS Statement are negative. Past Medical History Past Medical History: Cancer, Chest Pain / Angina, GERD/Reflux, Hyperlipidemia, Hypertension, Osteoarthritis (OA), Prostate Disorder, Renal Disease Additional Past Medical History / Comment(s): L renal cancer with neph rectomy/mets L lung and pt states spot on sternum is gone now-currently taking oral chemotherapy, chronic renal failure stage II, lower leg edema thought to be due to HTN medications, BPH, chronic low back pain, arthritis vs gout r great toe. History of Any Multi-Drug Resistant Organisms: None Reported Past Surgical History: Heart Catheterization, Orthopedic Surgery Additional Past Surgical History / Comment(s): Left nephrectomy 2015, RT HAND 2ND DIGIT LOST TOP OF FINGER IN CRUSHING INJURY, colonoscopy, 2 normal cardiac caths. Past Anesthesia/Blood Transfusion Reactions: No Reported Reaction Past Psychological History: Depression Smoking Status: Never smoker Past Alcohol Use History: None Reported Past Drug Use History: Marijuana - Past Family History Father Family Medical History: Cancer, Hypertension, Myocardial Infarction ([place]) Additional Family Medical History / Comment(s): SKIN CANCER Mother Family Medical History: Cancer Additional Family Medical History / Comment(s): breast cancer - throat cancer Sister(s) Family Medical History: Cancer Additional Family Medical History / Comment(s): SKIN CANCER General Exam Limitations: no limitations General appearance: alert, in no apparent distress Head exam: Present: atraumatic, normocephalic, normal inspection Eye exam: Present: normal appearance, PERRL, EOMI. Absent: scleral icterus, conjunctival injection, periorbital swelling ENT exam: Present: normal exam, mucous membranes moist Neck exam: Present: normal inspection. Absent: tenderness, meningismus, lymphadenopathy Respiratory exam: Present: normal lung sounds bilaterally. Absent: respiratory distress, wheezes, rales, rhonchi, stridor Cardiovascular Exam: Present: regular rate, normal rhythm, normal heart sounds. Absent: systolic murmur, diastolic murmur, rubs, gallop, clicks GI/Abdominal exam: Present: soft, normal bowel sounds. Absent: distended, tenderness, guarding, rebound, rigid Extremities exam: Present: normal inspection, full ROM, normal capillary refill. Absent: tenderness, pedal edema, joint swelling, calf tenderness Back exam: Present: normal inspection Neurological exam: Present: alert, oriented X3, CN II-XII intact Psychiatric exam: Present: normal affect, normal mood Skin exam: Present: warm, dry, intact, normal color. Absent: rash Course Vital Signs 08/28/20 08/28/20 08/28/20 12:10 12:19 15:31 Temperature 98.7 F 98.5 F Pulse Rate 57 L Pulse Rate [ 78 Pulse Oximetery ] Pulse Rate [ 59 L Right Sitting Teacher Physically Impaired ] Pulse Rate [ 61 Right Standing Teacher Physically Impaired ] Pulse Rate [ 65 Right Supine Teacher Physically Impaired ] Respiratory 18 18 Rate Blood Pressure 101/65 Blood Pressure 134/81 [Left Arm] Blood Pressure 119/69 [Right Arm Sitting] Blood Pressure 112/67 [Right Arm Standing] Blood Pressure 109/67 [Right Arm Supine] O2 Sat by Pulse 96 94 L Oximetry 08/28/20 15:52 Temperature 98.6 F Pulse Rate 58 L Pulse Rate [ Pulse Oximetery ] Pulse Rate [ Right Sitting Teacher Physically Impaired ] Pulse Rate [ Right Standing Teacher Physically Impaired ] Pulse Rate [ Right Supine Teacher Physically Impaired ] Respiratory 18 Rate Blood Pressure 118/78 Blood Pressure [Left Arm] Blood Pressure [Right Arm Sitting] Blood Pressure [Right Arm Standing] Blood Pressure [Right Arm Supine] O2 Sat by Pulse 99 Oximetry EKG Findings - EKG Comments: EKG Findings:: EKG demonstrates a sinus bradycardia with a ventricular rate of 56. OR interval 166. QRS 90. QTC of 414. No acute ST segment elevations or depressions concerning for ischemic changes Medical Decision Making - Medical Decision Making On arrival patient is placed into room 15. A thorough history and physical exam was performed. Patient is asymptomatic at this time. Laboratory studies were conducted and the patient went for chest x-ray. Review of the patient's labs reveal no acute findings. Chest x-ray demonstrates no acute cardiothoracic process. Results are discussed with the patient. Did recommend overnight observation in order to trend his troponins and for cardiology consultation. Patient did agree to this. Awaiting callback from Dr. Zavala for admission - Lab Data Result diagrams: 08/29/20 07:46 08/29/20 07:46 Lab Results 08/28/20 08/28/20 08/28/20 Range/Units 12:40 12:40 12:40 WBC 6.7 (3.8-10.6) k/uL RBC 4.56 (4.30-5.90) m/uL Hgb 13.2 (13.0-17.5) gm/dL Hct 40.8 (39.0-53.0) % MCV 89.6 (80.0-100.0) fL MCH 29.0 (25.0-35.0) pg MCHC 32.4 (31.0-37.0) g/dL RDW 13.7 (11.5-15.5) % Plt Count 287 (150-450) k/uL MPV 8.2 Neutrophils % 60 % Lymphocytes % 24 % Monocytes % 8 % Eosinophils % 6 % Basophils % 1 % Neutrophils # 4.0 (1.3-7.7) k/uL Lymphocytes # 1.6 (1.0-4.8) k/uL Monocytes # 0.5 (0-1.0) k/uL Eosinophils # 0.4 (0-0.7) k/uL Basophils # 0.1 (0-0.2) k/uL PT 9.8 (9.0-12.0) sec INR 0.9 (<1.2) APTT 22.2 (22.0-30.0) sec Sodium (137-145) mmol/L Potassium (3.5-5.1) mmol/L Chloride (98-107) mmol/L Carbon Dioxide (22-30) mmol/L Anion Gap mmol/L BUN (9-20) mg/dL Creatinine (0.66-1.25) mg/dL Est GFR (CKD-EPI)AfAm (>60 ml/min/1.73 sqM) Est GFR (CKD-EPI)NonAf (>60 ml/min/1.73 sqM) Glucose (74-99) mg/dL Calcium (8.4-10.2) mg/dL Total Bilirubin (0.2-1.3) mg/dL AST (17-59) U/L ALT (4-49) U/L Alkaline Phosphatase (38-126) U/L Troponin I (0.000-0.034) ng/mL Total Protein (6.3-8.2) g/dL Albumin (3.5-5.0) g/dL Urine Color Yellow Urine Appearance Clear (Clear) Urine pH 5.5 (5.0-8.0) Ur Specific [employer] 1.019 (1.001-1.035) Urine Protein Negative (Negative) Urine Glucose (UA) Negative (Negative) Urine Ketones Negative (Negative) Urine Blood Negative (Negative) Urine Nitrite Negative (Negative) Urine Bilirubin Negative (Negative) Urine Urobilinogen <2.0 (<2.0) mg/dL Ur Leukocyte Esterase Negative (Negative) 08/28/20 08/28/20 Range/Units 12:40 12:40 WBC (3.8-10.6) k/uL RBC (4.30-5.90) m/uL Hgb (13.0-17.5) gm/dL Hct (39.0-53.0) % MCV (80.0-100.0) fL MCH (25.0-35.0) pg MCHC (31.0-37.0) g/dL RDW (11.5-15.5) % Plt Count (150-450) k/uL MPV Neutrophils % % Lymphocytes % % Monocytes % % Eosinophils % % Basophils % % Neutrophils # (1.3-7.7) k/uL Lymphocytes # (1.0-4.8) k/uL Monocytes # (0-1.0) k/uL Eosinophils # (0-0.7) k/uL Basophils # (0-0.2) k/uL PT (9.0-12.0) sec INR (<1.2) APTT (22.0-30.0) sec Sodium 135 L (137-145) mmol/L Potassium 4.9 (3.5-5.1) mmol/L Chloride 105 (98-107) mmol/L Carbon Dioxide 24 (22-30) mmol/L Anion Gap 6 mmol/L BUN 39 H (9-20) mg/dL Creatinine 1.74 H (0.66-1.25) mg/dL Est GFR (CKD-EPI)AfAm 43 (>60 ml/min/1.73 sqM) Est GFR (CKD-EPI)NonAf 37 (>60 ml/min/1.73 sqM) Glucose 105 H (74-99) mg/dL Calcium 10.2 (8.4-10.2) mg/dL Total Bilirubin 0.8 (0.2-1.3) mg/dL AST 21 (17-59) U/L ALT 12 (4-49) U/L Alkaline Phosphatase 79 (38-126) U/L Troponin I <0.012 (0.000-0.034) ng/mL Total Protein 6.7 (6.3-8.2) g/dL Albumin 3.9 (3.5-5.0) g/dL Urine Color Urine Appearance (Clear) Urine pH (5.0-8.0) Ur Specific [employer] (1.001-1.035) Urine Protein (Negative) Urine Glucose (UA) (Negative) Urine Ketones (Negative) Urine Blood (Negative) Urine Nitrite (Negative) Urine Bilirubin (Negative) Urine Urobilinogen (<2.0) mg/dL Ur Leukocyte Esterase (Negative) Disposition Clinical Impression: Chest pain, Syncope Disposition: ADMITTED IP TO THIS [facility] Condition: Stable Is patient prescribed a controlled substance at d/c from ED?: No Decision to Admit Reason: Admit from EC Decision Date: 08/28/20 Decision Time: 14:38
[2020-08-28 13:00] LABS: Basophils # (A) 0.1 k/uL (0-0.2); Basophils % (A) 1 %; Eosinophils # (A) 0.4 k/uL (0-0.7); Eosinophils % (A) 6 %; HCT 40.8 % (39.0-53.0); HGB 13.2 gm/dL (13.0-17.5); Lymphocytes # (A) 1.6 k/uL (1.0-4.8); Lymphocytes % (A) 24 %; MCHC 32.4 g/dL (31.0-37.0); MCV 89.6 fL (80.0-100.0); Mean Platelet Volume 8.2; Monocytes # (A) 0.5 k/uL (0-1.0); Monocytes % (A) 8 %; Neutrophils % (A) 60 %; Platelet Count 287 k/uL (150-450); RBC 4.56 m/uL (4.30-5.90); RDW 13.7 % (11.5-15.5); WBC 6.7 k/uL (3.8-10.6)
--- NOTE | 2020-08-28 13:06 | XR ---
EXAMINATION TYPE: XR chest 2V DATE OF EXAM: 08/28/2020 COMPARISON: Prior chest x-ray 03/26/2020 HISTORY: Syncope, weakness TECHNIQUE: Frontal and lateral views of the chest are obtained. FINDINGS: There is no focal air space opacity, pleural effusion, or pneumothorax seen. The cardiac silhouette size is within normal limits. The osseous structures are intact. There are overlying divya ds. IMPRESSION: No acute cardiopulmonary process.
[2020-08-28 13:16] LABS: INR 0.9 (<1.2); Partial Thromboplastin Time 22.2 sec (22.0-30.0); Prothrombin Time 9.8 sec (9.0-12.0)
[2020-08-28 13:18] LABS: Albumin 3.9 g/dL (3.5-5.0); Calcium 10.2 mg/dL (8.4-10.2); Potassium 4.9 mmol/L (3.5-5.1); Total Bilirubin 0.8 mg/dL (0.2-1.3); Total Protein 6.7 g/dL (6.3-8.2)
[2020-08-28] MEDS ORDERED: NALOXONE 0.4 MG/ML 1 ML VIAL IV PRN (14:39)
[2020-08-28 14:50] LABS: Appearance,Urine Clear (Clear); Bilirubin,Urine Negative (Negative); Blood,Urine Negative (Negative); Color,Urine Yellow; Glucose,Urine (UA) Negative (Negative); Ketones,Urine Negative (Negative); Leukocyte Esterase,Urine Negative (Negative); Nitrite,Urine Negative (Negative); PH, Urine 5.5 (5.0-8.0); Protein,Urine Negative (Negative); Specific Gravity,Urine 1.019 (1.001-1.035); Urobilinogen,Urine <2.0 mg/dL (<2.0)
[2020-08-28] MEDS ORDERED: DICLOFENAC SODIUM GEL 100 GM TUBE TOPICAL PRN (17:55)
[2020-08-28] MEDS ORDERED: NITROGLYCERIN SL TABS 0.4 MG TAB SUBLINGUAL PRN (17:55)
[2020-08-28] MEDS ORDERED: HYDROcodone/APAP 5-325MG 1 EACH TAB PO PRN (17:55)
[2020-08-28] MEDS ORDERED: TAMSULOSIN 0.4 MG CAP.ER.24H PO SCH (21:00)
[2020-08-28] MEDS ORDERED: ASPIRIN 81 MG PO SCH (21:00)
[2020-08-28] MEDS ORDERED: PRAVASTATIN SODIUM 40 MG TAB PO SCH (21:00)
[2020-08-28] MEDS: METOPROLOL TARTRATE 25 MG TAB PO SCH (21:41)
--- NOTE | 2020-08-28 23:47 | P.HPIM ---
History of Present Illness This is a pleasant 79 years old male with multiple medical problems including hypertension, hyperlipidemia, left renal cancer status post nephrectomy with metastasis to the lung on chemotherapy, GERD pt is following up iwth for his lung cancer , and he is s/p chemotherapy about 3 weeks ago, also he has history of left nephrectomy He was at work when he felt unwell and fuzzy a little bit with numbness all over his body and some chest pain so he decided to sit down and he took sublingual nitro pill which helped him for his chest pain but then he realizes that he is been passed out for about 10 minutes, during which time nobody was around him with this it, he woke up after that without confusion but he noticed he wets himself with urine but no stool incontinence and no bowel incontinence also patient was complaining of off headaches for one to 2 hours. This chest pain happened to him before he passed out felt like tightness all over his chest, nonradiating about 2-3/10 in severity, felt like uncomfortableness. But now is disappeared. 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 Serial troponins are negative 3. UA is unremarkable Creatinine is 1.7, compared to baseline of 1.0-1.5 Sinus bradycardia with heart rate at 56 on EKG Chest x-ray: No acute process by radiologist. Review of Systems CONSTITUTIONAL: No fever, no malaise, no fatigue. HEENT: No recent visual problems or hearing problems. Denied any sore throat. CARDIOVASCULAR: No orthopnea, PND, no palpitations, no syncope. PULMONARY: No shortness of breath, no cough, no hemoptysis. GASTROINTESTINAL: No diarrhea, no nausea, no vomiting, no abdominal pain. Normoactive bowel sounds. NEUROLOGICAL: No headaches, no weakness, no numbness. HEMATOLOGICAL: Denies any bleeding or petechiae. GENITOURINARY: Denies any burning micturition, frequency, or urgency. MUSCULOSKELETAL/RHEUMATOLOGICAL: Denies any joint pain, swelling, or any muscle pain. ENDOCRINE: Denies any polyuria or polydipsia. Past Medical History Past Medical History: Cancer, Chest Pain / Angina, GERD/Reflux, Hyperlipidemia, Hypertension, Osteoarthritis (OA), Prostate Disorder, Renal Disease Additional Past Medical History / Comment(s): L renal cancer with nephrectomy/mets L lung and pt states spot on sternum is gone now-currently taking oral chemotherapy, chronic renal failure stage II, lower leg edema thought to be due to HTN medications, BPH, chronic low back pain, arthritis vs gout r great toe. 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 Past Anesthesia/Blood Transfusion Reactions: No Reported Reaction Past Psychological History: Depression Smoking Status: Never smoker Past Alcohol Use History: None Reported Past Drug Use History: Marijuana - Past Family History Father Family Medical History: Cancer, Hypertension, Myocardial Infarction ([place]) Additional Family Medical History / Comment(s): SKIN CANCER Mother Family Medical History: Cancer Additional Family Medical History / Comment(s): breast cancer - throat cancer Sister(s) Family Medical History: Cancer Additional Family Medical History / Comment(s): SKIN CANCER Medications and Allergies Home Medications Medication Instructions Recorded Confirmed Type Metoprolol Tartrate 25 mg PO BID 10/12/17 08/28/20 History Tamsulosin HCl [Flomax] 0.4 mg PO HS 10/12/17 08/28/20 History Aspirin [Adult Low Dose Aspirin EC] 81 mg PO HS 02/29/20 08/28/20 History Clopidogrel [Plavix] 75 mg PO DAILY #90 tab 03/02/20 08/28/20 Rx Isosorbide Mononitrate ER [Imdur] 30 mg PO DAILY #90 tab.er.24h 03/02/20 08/28/20 Rx Nitroglycerin Sl Tabs [Nitrostat] 0.4 mg SUBLINGUAL Q5M PRN #25 tab 03/02/20 08/28/20 Rx Diclofenac Sodium [Voltaren Gel] 1 applic TOPICAL BID PRN 03/26/20 08/28/20 History HYDROcodone/APAP 5-325MG [[place] 1 tab PO Q6HR PRN 03/26/20 08/28/20 History 5-325] Pravastatin Sodium [Pravachol] 20 mg PO HS 08/28/20 08/28/20 History Allergies Allergy/AdvReac Type Severity Reaction Status Date / Time atorvastatin calcium Allergy Unknown Verified 08/28/20 13:17 [From Lipitor] clindamycin Allergy Unknown Verified 08/28/20 13:17 Physical Exam Vitals: Vital Signs Temp Pulse Pulse Pulse Pulse Pulse Resp 08/28/20 16:18 97.6 F 67 18 08/28/20 15:52 98.6 F 58 L 18 08/28/20 12:19 59 L 61 65 08/28/20 12:10 98.7 F 57 L 18 BP BP BP BP BP Pulse Ox 08/28/20 16:18 172/88 185/84 98 08/28/20 15:52 118/78 99 08/28/20 12:19 119/69 112/67 109/67 08/28/20 12:10 101/65 96 Intake and Output 08/28/20 08/28/20 08/28/20 06:59 14:59 22:59 Other: Weight 61.235 kg GENERAL: The patient is alert and oriented x3, not in any acute distress. Well developed, well nourished. HEENT: Pupils are round and equally reacting to light. EOMI. No scleral icterus. No conjunctival pallor. Normocephalic, atraumatic. No pharyngeal erythema. No thyromegaly. CARDIOVASCULAR: S1 and S2 present. No murmurs, rubs, or gallops. PULMONARY: Chest is clear to auscultation, no wheezing or crackles. ABDOMEN: Soft, nontender, nondistended, normoactive bowel sounds. No palpable organomegaly. MUSCULOSKELETAL: No joint swelling or deformity. EXTREMITIES: No cyanosis, clubbing, or pedal edema. NEUROLOGICAL: Gross neurological examination did not reveal any focal deficits. SKIN: No rashes. 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 Continue with gentle hydration Labs and medication were reviewed.. Continue same treatment. Continue with symptomatic treatment. Resume home medication. Monitor lytes and vitals. DVT and GI prophylaxis. Further recommendations depends on the clinical course of the patient DVT prophylaxis: Subcutaneous heparin GI Prophylaxis: Pepcid
[2020-08-29] MEDS: SODIUM CHLORIDE 0.9% 1,000 ML IV SCH ×2 (01:50→12:57)
[2020-08-29 05:09] VITALS: TEMP 98.2
[2020-08-29 07:58] LABS: Basophils # (A) 0.1 k/uL (0-0.2); Basophils % (A) 1 %; Eosinophils # (A) 0.4 k/uL (0-0.7); Eosinophils % (A) 8 %; HCT 39.2 % (39.0-53.0); HGB 13.6 gm/dL (13.0-17.5); Lymphocytes # (A) 1.4 k/uL (1.0-4.8); Lymphocytes % (A) 24 %; MCH 30.9 pg (25.0-35.0); MCHC 34.6 g/dL (31.0-37.0); MCV 89.4 fL (80.0-100.0); Mean Platelet Volume 8.4; Monocytes # (A) 0.5 k/uL (0-1.0); Monocytes % (A) 9 %; Neutrophils # (A) 3.3 k/uL (1.3-7.7); Neutrophils % (A) 56 %; Platelet Count 262 k/uL (150-450); RBC 4.39 m/uL (4.30-5.90); RDW 13.1 % (11.5-15.5); WBC 5.9 k/uL (3.8-10.6)
[2020-08-29 08:11] LABS: Calcium 9.6 mg/dL (8.4-10.2); Potassium 4.3 mmol/L (3.5-5.1)
[2020-08-29] MEDS ORDERED: CLOPIDOGREL 75 MG TAB PO SCH (09:00)
[2020-08-29] MEDS ORDERED: ISOSORBIDE MONONITRATE ER 30 MG TAB.ER.24H PO SCH (09:00)
[2020-08-29] MEDS: METOPROLOL TARTRATE 25 MG TAB PO SCH (12:46)
--- NOTE | 2020-08-29 13:15 | P.CRDCN ---
History of Present Illness History of present illness: HISTORY OF PRESENTING ILLNESS This is a pleasant 79-year-old male past medical history significant for nonobstructive coronary artery disease, dyslipidemia, hypertension, left lukasz al carcinoma with sternal mets s/p left nephrectomy and GERD. The follows in the office with Dr. Sultana. We have been asked to see in consultation for chest pain. States yesterday while at work he felt his whole body tingling and burning and had discomfort across his entire chest anteriorly described as a tightness. He sat down and took one sublingual nitroglycerin to relieve the discomfort. According to coworkers he then passed out and fell on the floor. When he woke up he felt disoriented and had urinated on himself. He underwent cardiac catheterization secondary to mild troponin elevation revealing 20-30% plaque of the proximal LAD, an area of stenosis at the takeoff of the second d iagonal branch 40-50%, OM branch of the circumflex with a 20-30% plaque in mid intimal disease of the RCA 20%. DIAGNOSTICS EKG reveals sinus bradycardia heart rate 56 with no ischemic changes. Telemetry tracings indicate persistent sinus mechanism. Chest xray negative for an acute cardiopulmonary process. Laboratory reviewed, CBC unremarkable, sodium 137, potassium 4.3, creatinine 1.54, cardiac enzymes negative 3. Current cardiac medications include aspirin 81 mg daily, Plavix 75 mg daily, Imd ur 30 mg daily, metoprolol 25 mg twice a day and pravastatin 20 mg. Most recent echocardiogram obtained March 2020 revealed preserved LV systolic function with ejection fraction 50-55%. REVIEW OF SYSTEMS At the time of my exam: CONSTITUTIONAL: Denies fever or chills. CARDIOVASCULAR: Denies chest pain, shortness of breath, orthopnea, PND or palpitations. RESPIRATORY: Denies cough. GASTROINTESTINAL: Denies abdominal pain, diarrhea, constipation, nausea or vomiting. MUSCULOSKELETAL: Denies myalgias. NEUROLOGIC: Denies numbness, tingling or weakness. ENDOCRINE: Denies fatigue, weight change, polydipsia or polyurina. GENITOURINARY: Denies burning, hematuria or urgency with micturation. HEMATOLOGIC: Denies history of anemia or bleeding. PHYSICAL EXAMINATION Blood pressure 152/83 heart rate 65 afebrile and maintaining oxygen saturation on room air. CONSTITUTIONAL: No apparent distress. HEENT: Head is normocephalic. Pupils are equal, round. Sclerae anicteric. Mucous membranes of the mouth are moist. No JVD. No carotid bruit. CHEST EXAMINATION: Lungs are clear to auscultation. No chest wall tenderness is noted on palpation or with deep breathing. HEART EXAMINATION: Regular rate and rhythm. S1, S2 heard. No murmurs, gallops or rub. ABDOMEN: Soft, nontender. Positive bowel sounds. EXTREMITIES: 2+ peripheral pulses, no lower extremity edema and no calf tenderness. NEUROLOGIC EXAMINATION: Patient is awake, alert and oriented x3. ASSESSMENT Chest pain, atypical for angina. Syncope, likely secondary to hypotension after SL nitro administration. Hypertension Chronic kidney disease s/p left nephrectomy Renal carcinoma Dyslipidemia PLAN An acute coronary event has been ruled out. Recent catheterization reveals non- obstructive CAD. Syncope likely related to nitroglycerin administration however we will apply a 30 day event monitor upon discharge to assess for significant bradycardia arrhythmia. Can be discharged home from a cardiac perspective once event monitor is applied. Follow-up in the office with Dr. Sultana. Thank you kindly for this consultation. Nurse Practitioner note has been reviewed, I agree with a documented findings and plan of care. Patient was seen and examined. Past Medical History Past Medical History: Cancer, Chest Pain / Angina, GERD/Reflux, Hyperlipidemia, Hypertension, Osteoarthritis (OA), Prostate Disorder, Renal Disease Additional Past Medical History / Comment(s): L renal cancer with nephrectomy/mets L lung and pt states spot on sternum is gone now-currently taking oral chemotherapy, chronic renal failure stage II, lower leg edema thought to be due to HTN medications, BPH, chronic low back pain, arthritis vs gout r great toe. 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 Past Anesthesia/Blood Transfusion Reactions: No Reported Reaction Past Psychological History: Depression Smoking Status: Never smoker Past Alcohol Use History: None Reported Past Drug Use History: Marijuana - Past Family History Father Family Medical History: Cancer, Hypertension, Myocardial Infarction ([place]) Additional Family Medical History / Comment(s): SKIN CANCER Mother Family Medical History: Cancer Additional Family Medical History / Comment(s): breast cancer - throat cancer Sister(s) Family Medical History: Cancer Additional Family Medical History / Comment(s): SKIN CANCER Medications and Allergies Home Medications Medication Instructions Recorded Confirmed Type Metoprolol Tartrate 25 mg PO BID 10/12/17 08/28/20 History Tamsulosin HCl [Flomax] 0.4 mg PO HS 10/12/17 08/28/20 History Aspirin [Adult Low Dose Aspirin EC] 81 mg PO HS 02/29/20 08/28/20 History Clopidogrel [Plavix] 75 mg PO DAILY #90 tab 03/02/20 08/28/20 Rx Isosorbide Mononitrate ER [Imdur] 30 mg PO DAILY #90 tab.er.24h 03/02/20 08/28/20 Rx Nitroglycerin Sl Tabs [Nitrostat] 0.4 mg SUBLINGUAL Q5M PRN #25 tab 03/02/20 08/28/20 Rx Diclofenac Sodium [Voltaren Gel] 1 applic TOPICAL BID PRN 03/26/20 08/28/20 His tory HYDROcodone/APAP 5-325MG [[place] 1 tab PO Q6HR PRN 03/26/20 08/28/20 History 5-325] Pravastatin Sodium [Pravachol] 20 mg PO HS 08/28/20 08/28/20 History Allergies Allergy/AdvReac Type Severity Reaction Status Date / Time atorvastatin calcium Allergy Unknown Verified 08/28/20 13:17 [From Lipitor] clindamycin Allergy Unknown Verified 08/28/20 13:17 Physical Exam Vitals: Vital Signs Temp Pulse Pulse Pulse Pulse Pulse Resp 08/29/20 03:20 98.2 F 66 18 08/28/20 22:17 78 18 08/28/20 21:00 98.5 F 78 18 08/28/20 16:18 97.6 F 67 18 08/28/20 15:52 98.6 F 58 L 18 08/28/20 15:31 98.5 F 78 18 08/28/20 12:19 59 L 61 65 08/28/20 12:10 98.7 F 57 L 18 BP BP BP BP BP Pulse Ox 08/29/20 03:20 106/64 97 08/28/20 22:17 08/28/20 21:00 134/81 94 L 08/28/20 16:18 172/88 185/84 98 08/28/20 15:52 118/78 99 12/11/20 15:31 134/81 94 L 08/28/20 12:19 119/69 112/67 109/67 08/28/20 12:10 101/65 96 Intake and Output 08/28/20 08/29/20 08/29/20 22:59 06:59 14:59 Other: Voiding Method Toilet Toilet # Voids 1 2 Weight 61.235 kg Results 08/29/20 07:46 08/29/20 07:46 Cardiac Enzymes 08/28/20 08/28/20 08/28/20 Range/Units 12:40 12:40 15:56 AST 21 (17-59) U/L Troponin I <0.012 <0.012 (0.000-0.034) ng/mL 08/28/20 Range/Units 18:45 AST (17-59) U/L Troponin I <0.012 (0.000-0.034) ng/mL Coagulation 08/28/20 Range/Units 12:40 PT 9.8 (9.0-12.0) sec APTT 22.2 (22.0-30.0) sec CBC 08/28/20 08/29/20 Range/Units 12:40 07:46 WBC 6.7 5.9 (3.8-10.6) k/uL RBC 4.56 4.39 (4.30-5.90) m/uL Hgb 13.2 13.6 (13.0-17.5) gm/dL Hct 40.8 39.2 (39.0-53.0) % Plt Count 287 262 (150-450) k/uL Comprehensive Metabolic Panel 08/28/20 Range/Units 12:40 Sodium 135 L (137-145) mmol/L Potassium 4.9 (3.5-5.1) mmol/L Chloride 105 (98-107) mmol/L Carbon Dioxide 24 (22-30) mmol/L BUN 39 H (9-20) mg/dL Creatinine 1.74 H (0.66-1.25) mg/dL Glucose 105 H (74-99) mg/dL Calcium 10.2 (8.4-10.2) mg/dL AST 21 (17-59) U/L ALT 12 (4-49) U/L Alkaline Phosphatase 79 (38-126) U/L Total Protein 6.7 (6.3-8.2) g/dL Albumin 3.9 (3.5-5.0) g/dL Current Medications Generic Name Dose Route Start Last Admin Trade Name Freq PRN Reason Stop Dose Admin Hydrocodone Bitart/Acetaminophen 1 each 08/28/20 17:55 Hydrocodone/Apap 5-325mg 1 Each Tab PO Q6HR PRN Severe Pain Aspirin 81 mg 08/28/20 21:00 08/28/20 21:41 Aspirin 81 Mg PO 81 mg HS JAY JAY Administration Clopidogrel Bisulfate 75 mg 08/29/20 09:00 Clopidogrel 75 Mg Tab PO DAILY JAY JAY Diclofenac Sodium 2 - 4 gm 08/28/20 17:55 Diclofenac Sodium Gel 100 Gm Tube TOPICAL BID PRN Pain Sodium Chloride 1,000 mls @ 75 mls/hr 08/28/20 23:45 08/29/20 01:50 Saline 0.9% IV Not Given .[id number] JAY JAY Isosorbide Mononitrate 30 mg 08/29/20 09:00 Isosorbide Mononitrate Er 30 Mg Tab.Er.24h PO DAILY JAY JAY Metoprolol Tartrate 25 mg 08/28/20 21:00 08/28/20 21:41 Metoprolol Tartrate 25 Mg Tab PO 25 mg BID JAY JAY Administration Naloxone HCl 0.2 mg 08/28/20 14:39 Naloxone 0.4 Mg/Ml 1 Ml Vial IV Q2M PRN Opioid Reversal Nitroglycerin 0.4 mg 08/28/20 17:55 Nitroglycerin Sl Tabs 0.4 Mg Tab SUBLINGUAL Q5M PRN Chest Pain Pravastatin Sodium 20 mg 08/28/20 21:00 08/28/20 21:41 Pravastatin Sodium 40 Mg Tab PO 20 mg HS JAY JAY Administration Tamsulosin HCl 0.4 mg 08/28/20 21:00 08/28/20 21:41 Tamsulosin 0.4 Mg Cap.Er.24h PO 0.4 mg HS JAY JAY Administration Intake and Output 08/28/20 08/29/20 08/29/20 22:59 06:59 14:59 Other: Voiding Method Toilet Toilet # Voids 1 2 Weight 61.235 kg 08/29/20 07:46 08/28/20 12:40
[2020-08-29 15:38] VITALS: BP 114/70; PULSE 66; RESP 16
--- NOTE | 2020-08-29 16:00 | P.PN ---
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 on chemotherapy, GERD pt is following up iwth for his lung cancer , and he is s/p chemotherapy about 3 weeks ago, also he has history of left nephrectomy He was at work when he felt unwell and fuzzy a little bit with numbness all over his body and some chest pain so he decided to sit down and he took sublingual nitro pill which helped him for his chest pain but then he realizes that he is been passed out for about 10 minutes, during which time nobody was around him with this it, he woke up after that without confusion but he noticed he wets himself with urine but no stool incontinence and no bowel incontinence also patient was complaining of off headaches for one to 2 hours. This chest pain happened to him before he passed out felt like tightness all ov er his chest, nonradiating about 2-3/10 in severity, felt like uncomfortableness. But now is disappeared. 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 Serial troponins are negative 3. UA is unremarkable Creatinine is 1.7, compared to baseline of 1.0-1.5 Sinus bradycardia with heart rate at 56 on EKG Chest x-ray: No acute process by radiologist. 08/29/2020 Patient is back to baseline, no chest pain, no dizziness, no syncope, no seizure-like activity no other symptoms. Hemodynamically stable. Labs look stable and creatinine coming down to 1.5 discontinue IV fluid Discussed with cardiology team they think is related to nitro, and discussed with nurse Josey was doing telemetry medicine within urology service and they think is due to nitro versus seizure pending their final recommendation Cardiology or the cleared the patient for discharge, pending neurologist final recommendation Objective - Vital Signs Vital signs: Vital Signs Temp 98.2 F 08/29/20 15:00 Pulse 66 08/29/20 15:00 Resp 16 08/29/20 15:00 BP 114/70 08/29/20 15:00 Pulse Ox 96 08/29/20 15:00 Intake & Output 08/28/20 08/29/20 08/29/20 18:59 06:59 18:59 Intake Total 300 Balance 300 Weight 61.235 kg Intake: Intake, IV Titration 300 Amount Sodium Chloride 0.9% 1, 300 000 ml @ 75 mls/hr IV . [id number] [facility] Rx#:[id number] Other: Voiding Method Toilet # Voids 2 1 - Exam GENERAL: The patient is alert and oriented x3, not in any acute distress. Well developed, well nourished. HEENT: Pupils are round and equally reacting to light. EOMI. No scleral icterus. No conjunctival pallor. Normocephalic, atraumatic. No pharyngeal erythema. No thyromegaly. CARDIOVASCULAR: S1 and S2 present. No murmurs, rubs, or gallops. PULMONARY: Chest is clear to auscultation, no wheezing or crackles. ABDOMEN: Soft, nontender, nondistended, normoactive bowel sounds. No palpable organomegaly. MUSCULOSKELETAL: No joint swelling or deformity. EXTREMITIES: No cyanosis, clubbing, or pedal edema. NEUROLOGICAL: Gross neurological examination did not reveal any focal deficits. SKIN: No rashes. no petechiae. 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 Continue with gentle hydration Labs and medication were reviewed.. Continue same treatment. Continue with symptomatic treatment. Resume home medication. Monitor lytes and vitals. DVT and GI prophylaxis. Further recommendations depends on the clinical course of the patient DVT prophylaxis: Subcutaneous heparin GI Prophylaxis: Pepcid
--- NOTE | 2020-08-29 16:28 | P.CNNES ---
History of Present Illness Consult date: 08/29/20 Chief complaint: syncope and chest pain History of Present Illness: The patient is a very pleasant 79-year-old male who is seen in neur ologic consultation on August 29, 2020, via teleneurology. The patient is able to provide a very good history for me. He initially tells me that about 3- 4 months ago, he had a "episode at home". He states that he was diagnosed with a "silent [place]". Yesterday, he said that he was at work and began to feel a headache. He also noted a tingling sensation, lightheadedness and chest pain. He says he felt as if he was going to pass out, so he sat down on a chair. He then took a nitroglycerin pill and the next thing he knew he was "looking up at the ceiling". Patient reports that he did not fall off the chair. He said that he fell back into the chair. This was unwitnessed. Patient states that when he awoke he was extremely sweaty, cold and clammy. He was also nauseated and vomited. He said that he lost control of his bladder as well. He denies tongue biting. He states that when he awoke, he was completely aware of where he was. There is no postictal confusion, difficultly with speech or excessive sleepiness. He states that his boss drove him into the emergency department. The patient reports being able to walk without difficulty out to the car. He also walked into the emergency department. Patient denies symptoms of orthostasis. He denies a history of syncope and seizure. The patient denies residual numbness tingling or weakness in his extremities. These symptoms were not present yesterday following the episode, nor are they present today. Past Medical History Past Medical History: Cancer, Chest Pain / Angina, GERD/Reflux, Hyperlipidemia, Hypertension, Osteoarthritis (OA), Prostate Disorder, Renal Disease Additional Past Medical History / Comment(s): L renal cancer with nephrectomy/mets L lung and pt states spot on sternum is gone now-currently taking oral chemotherapy, chronic renal failure stage II, lower leg edema thought to be due to HTN medications, BPH, chronic low back pain, arthritis vs gout r great toe. 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 Past Anesthesia/Blood Transfusion Reactions: No Reported Reaction Past Psychological History: Depression Smoking Status: Never smoker Past Alcohol Use History: None Reported Past Drug Use History: Marijuana - Past Family History Father Family Medical History: Cancer, Hypertension, Myocardial Infarction ([place]) Additional Family Medical History / Comment(s): SKIN CANCER Mother Family Medical History: Cancer Additional Family Medical History / Comment(s): breast cancer - throat cancer Sister(s) Family Medical History: Cancer Additional Family Medical History / Comment(s): SKIN CANCER Medications and Allergies Home Medications Medication Instructions Recorded Confirmed Type Metoprolol Tartrate 25 mg PO BID 10/12/17 08/28/20 History Tamsulosin HCl [Flomax] 0.4 mg PO HS 10/12/17 08/28/20 History Aspirin [Adult Low Dose Aspirin EC] 81 mg PO HS 02/29/20 08/28/20 History Clopidogrel [Plavix] 75 mg PO DAILY #90 tab 03/02/20 08/28/20 Rx Isosorbide Mononitrate ER [Imdur] 30 mg PO DAILY #90 tab.er.24h 03/02/20 08/28/20 Rx Nitroglycerin Sl Tabs [Nitrostat] 0.4 mg SUBLINGUAL Q5M PRN #25 tab 03/02/20 08/28/20 Rx Diclofenac Sodium [Voltaren Gel] 1 applic TOPICAL BID PRN 03/26/20 08/28/20 History HYDROcodone/APAP 5-325MG [[place] 1 tab PO Q6HR PRN 03/26/20 08/28/20 History 5-325] Pravastatin Sodium [Pravachol] 20 mg PO HS 08/28/20 08/28/20 History Allergies Allergy/AdvReac Type Severity Reaction Status Date / Time atorvastatin calcium Allergy Unknown Verified 08/28/20 13:17 [From Lipitor] clindamycin Allergy Unknown Verified 08/28/20 13:17 Physical Examination - Vital Signs Vital Signs: Vital Signs Temp Pulse Pulse Resp BP BP BP 08/29/20 08:53 98.2 F 65 18 152/83 08/29/20 03:20 98.2 F 66 18 106/64 08/28/20 22:17 78 18 08/28/20 21:00 98.5 F 78 18 134/81 08/28/20 16:18 97.6 F 67 18 172/88 185/84 08/28/20 15:52 98.6 F 58 L 18 118/78 08/28/20 15:31 98.5 F 78 18 134/81 Pulse Ox 08/29/20 08:53 97 08/29/20 03:20 97 08/28/20 22:17 08/28/20 21:00 94 L 08/28/20 16:18 98 08/28/20 15:52 99 08/28/20 15:31 94 L Intake and Output 08/28/20 08/29/20 08/29/20 22:59 06:59 14:59 Other: Voiding Method Toilet Toilet # Voids 1 2 1 Weight 61.235 kg Gen.: The patient is reclining in the bed. He is well-nourished, well-developed and in no acute distress. HEENT: Head is atraumatic, normocephalic. Fundus not visualized. There is no scleral icterus. Mucous membranes are moist. There is no evidence of tongue biting. Neck: Supple without carotid bruits Heart: Regular rate and rhythm Extremities: Without edema Neurological examination Mental status: The patient is awake, alert and oriented 3. His speech is clear. There is no dysarthria or aphasia. Cranial nerves: Pupils are equal at 3 mm and reactive. Visual sheikh are full to confrontation. Extraocular movements are intact. There is no nystagmus. Facial sensation is intact. There is no facial asymmetry. Hearing is grossly intact. Uvula and palate are midline. Shoulder shrug is symmetric. Tongue protrudes midline. Motor: Strength is 5/5. Coordination: There is a mild right sided intention tremor, with finger to nose testing. [id number] testing is intact. Sensation: Grossly intact to light touch throughout. There is no extinction with double simultaneous stimulation. Deep tendon reflexes: 2+/4+ throughout Gait: Not assessed Results - Laboratory Findings CBC and BMP: 08/29/20 07:46 08/29/20 07:46 Abnormal Lab Findings: Abnormal Labs 08/28/20 08/29/20 12:40 07:46 Sodium 135 L BUN 39 H 33 H Creatinine 1.74 H 1.54 H Glucose 105 H Assessment and Plan Assessment: 1. Syncope, likely secondary to cardiac etiology as well as side effect of nitroglycerin and/or dehydration 2. Patient's symptoms are not consistent with seizure Plan: 1. He do not believe the patient needs to have an EEG 2. If cardiology feels the patient is stable, then I am okay with his discharge Thank you for allowing me to participate in the care of this patient Time with Patient: Greater than 30 (spent 45 minutes with patient via teleneurology)
--- NOTE | 2020-08-30 02:36 | P.DS ---
Providers Date of admission: 08/28/20 14:39 Attending physician: Michael Zavala MD Consults: 08/28/20 14:39 Consult Physician Urgent Consulting Provider: [facility] Reason/Comments: acute chest pain, syncope Do you want consulting provider notified?: Yes 08/28/20 23:46 Consult Physician Routine Consulting Provider: Jerman Nelson Reason/Comments: Syncope, rule out neurological causes Do you want consulting provider notified?: Yes Primary care physician: Lillian PT [facility] Course: Diagnoses: Syncope associated with chest pain, related to nitro medication. 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 on chemotherapy Hypertension Hyperlipidemia History of GERD Hospital course: This is a pleasant 79 years old male with multiple medical problems including hypertension, hyperlipidemia, left renal cancer status post nephrectomy with metastasis to the lung on chemotherapy, GERD pt is following up iwth for his lung cancer , and he is s/p chemotherapy about 3 weeks ago, also he has history of left nephrectomy He was at work when he felt unwell and fuzzy a little bit with numbness all over his body and some chest pain so he decided to sit down and he took sublingual nitro pill which helped him for his chest pain but then he realizes that he is been passed out for about 10 minutes, currently patient is back to his baseline. Patient evaluated by attendant sales and neurologist and they think is due to nitro medication which I agree with. [employer] recommended event monitor just to be on the safe side due to his bradycardia Patient was instructed to follow up with Dr. Moreno his attendant sales in 1 week and he agrees to call and make appointment yesterday is weekend Patient was cleared for discharge by attendant sales and neurologist Problems and management plan were discussed with the patient and he verbalized understanding and acceptance Patient was found stable and can be discharged home however he needs follow-up as an outpatient. Patient was instructed to follow up with PCP within one week and patient agrees to call and make his own appointment Gen: patient is a AAOx3, no distress CVS: S1-S2, RRR, no murmur Lungs: B/L CTA, no wheezing Abdomen: soft, no distention, no tenderness, positive bowel sounds Extremity: no leg edema or induration Time spent more than 35 minutes Patient Condition at Discharge: Stable Plan - Discharge Summary Discharge Rx Participant: No New Discharge Prescriptions: Continue Metoprolol Tartrate 25 mg PO BID Tamsulosin HCl [Flomax] 0.4 mg PO HS Aspirin [Adult Low Dose Aspirin EC] 81 mg PO HS Isosorbide Mononitrate ER [Imdur] 30 mg PO DAILY #90 tab.er.24h Nitroglycerin Sl Tabs [Nitrostat] 0.4 mg SUBLINGUAL Q5M PRN #25 tab PRN Reason: Chest Pain Clopidogrel [Plavix] 75 mg PO DAILY #90 tab HYDROcodone/APAP 5-325MG [[place] 5-325] 1 tab PO Q6HR PRN PRN Reason: Severe Pain Diclofenac Sodium [Voltaren Gel] 1 applic TOPICAL BID PRN PRN Reason: Pain Pravastatin Sodium [Pravachol] 20 mg PO HS Discharge Medication List Metoprolol Tartrate 25 mg PO BID 10/12/17 [History] Tamsulosin HCl [Flomax] 0.4 mg PO HS 10/12/17 [History] Aspirin [Adult Low Dose Aspirin EC] 81 mg PO HS 02/29/20 [History] Clopidogrel [Plavix] 75 mg PO DAILY #90 tab 03/02/20 [Rx] Isosorbide Mononitrate ER [Imdur] 30 mg PO DAILY #90 tab.er.24h 03/02/20 [Rx] Nitroglycerin Sl Tabs [Nitrostat] 0.4 mg SUBLINGUAL Q5M PRN #25 tab 03/02/20 [Rx] Diclofenac Sodium [Voltaren Gel] 1 applic TOPICAL BID PRN 03/26/20 [History] HYDROcodone/APAP 5-325MG [[place] 5-325] 1 tab PO Q6HR PRN 03/26/20 [History] Pravastatin Sodium [Pravachol] 20 mg PO HS 08/28/20 [History] Follow up Appointment(s)/Referral(s): Javi Sultana MD [STAFF PHYSICIAN] - 1 Week Lillian Johnson PT [Primary Care Provider] - 1-2 days Patient Instructions/Handouts: Chest Pain (DC), Syncope (DC) Activity/Diet/Wound Care/Special Instructions: Heart healthy diet Activity is restricted to you see your doctor Discharge Disposition: HOME SELF-CARE
== END 2020-08-29 17:55 | disposition home or self-care (01) ==
LOC: EC 12:01 → 1SOBS 14:39
PROVIDERS: ADMIT Internal Medicine; ATTEND Internal Medicine
DX: R55 Syncope and collapse (principal); R07.89 Other chest pain; R20.0 Anesthesia of skin; R00.1 Bradycardia, unspecified; N17.9 Acute kidney failure, unspecified; R11.2 Nausea with vomiting, unspecified; R32 Unspecified urinary incontinence; R20.2 Paresthesia of skin; R61 Generalized hyperhidrosis; I12.9 Hypertensive chronic kidney disease with stage 1 through stage 4 chronic kidney disease, or unspecified chronic kidney disease; N18.30 Chronic kidney disease, stage 3 unspecified; Z85.528 Personal history of other malignant neoplasm of kidney; C79.51 Secondary malignant neoplasm of bone; Z92.21 Personal history of antineoplastic chemotherapy; Z79.899 Other long term (current) drug therapy; Z79.82 Long term (current) use of aspirin; Z79.891 Long term (current) use of opiate analgesic; Z88.1 Allergy status to other antibiotic agents; Z88.8 Allergy status to other drugs, medicaments and biological substances; K21.9 Gastro-esophageal reflux disease without esophagitis; E78.5 Hyperlipidemia, unspecified; M19.90 Unspecified osteoarthritis, unspecified site; C78.02 Secondary malignant neoplasm of left lung; N40.0 Benign prostatic hyperplasia without lower urinary tract symptoms; G89.29 Other chronic pain; M54.5 Low back pain; F32.9 Major depressive disorder, single episode, unspecified; I25.10 Atherosclerotic heart disease of native coronary artery without angina pectoris; T46.3X5A Adverse effect of coronary vasodilators, initial encounter; Z90.5 Acquired absence of kidney; Z89.021 Acquired absence of right finger(s); Z79.02 Long term (current) use of antithrombotics/antiplatelets; W18.30XA Fall on same level, unspecified, initial encounter; Z82.49 Family history of ischemic heart disease and other diseases of the circulatory system; Z80.8 Family history of malignant neoplasm of other organs or systems; Z80.3 Family history of malignant neoplasm of breast; Z80.1 Family history of malignant neoplasm of trachea, bronchus and lung
CPT/HCPCS: 99285; 36415; 93005; 93270; 80053; 80048; 84484; 85025 ×2; 85610; 85730; 81003; 71046; G0378 ×2

== ENCOUNTER 2021-01-07 10:35 | Observation (INO) | payer MEDICARE, OTHER ==
[2021-01-07] MEDS ORDERED: ASPIRIN 81 MG PO STA (10:46)
--- NOTE | 2021-01-07 11:01 | ED ---
Chest Pain HPI - General Chief Complaint: Chest Pain Stated Complaint: Chest pain Time Seen by Provider: 01/07/21 10:39 Source: patient, RN notes reviewed Mode of arrival: ambulatory Limitations: no limitations - History of Present Illness Initial Comments: This a 79-year-old male presents emergency from chief complaint chest pain. Patient states he's had 3 episodes this morning. He's been recently being treated for reflux in which she's placed on Pepcid 20 mg. Patient states that today he had changes symptoms he states he had pain in his shoulder blades across his upper back and he had the burning in his chest. He states that initially feels it in his epigastric region and radiates up. Patient states she was told not to take Tums or Rolaids or Maalox by his home health clinical supervisor is his poor kidney function only one kidney at this time. Patient denies any current complaints of chest pain since has resolved. Patient denies shortness breath abdominal pain leg swelling - Related Data Home Medications Medication Instructions Recorded Confirmed Metoprolol Tartrate 25 mg PO BID 10/12/17 01/07/21 Tamsulosin HCl [Flomax] 0.4 mg PO HS 10/12/17 01/07/21 Aspirin [Adult Low Dose Aspirin EC] 81 mg PO HS 02/29/20 01/07/21 Diclofenac Sodium [Voltaren Gel] 1 applic TOPICAL BID PRN 03/26/20 01/07/21 Pravastatin Sodium [Pravachol] 20 mg PO HS 08/28/20 01/07/21 Ferrous Sulfate [Iron] 325 mg PO DAILY 01/07/21 01/07/21 Lidocaine 5% Patch [Lidoderm] 1 patch TOPICAL DAILY 01/07/21 01/07/21 Pantoprazole Sodium [Protonix] 20 mg PO DAILY 01/07/21 01/07/21 Previous Rx's Medication Instructions Recorded Clopidogrel [Plavix] 75 mg PO DAILY #90 tab 03/02/20 Isosorbide Mononitrate ER [Imdur] 30 mg PO DAILY #90 tab.er.24h 03/02/20 Nitroglycerin Sl Tabs [Nitrostat] 0.4 mg SUBLINGUAL Q5M PRN #25 tab 03/02/20 Allergies Allergy/AdvReac Type Severity Reaction Status Date / Time atorvastatin calcium Allergy Unknown Verified 01/07/21 11:36 [From Lipitor] clindamycin AdvReac JOINT PAIN Verified 01/07/21 11:36 Review of Systems ROS Statement: Those systems with pertinent positive or pertinent negative responses have been documented in the HPI. ROS Other: All systems not noted in ROS Statement are negative. EKG Findings - EKG Comments: EKG Findings:: EKG performed at 10:47 sinus bradycardia rate of 57 FL 184 QRS 88 QT/QTc 412/401 - EKG Results: EKG: interpreted by JACKY Past Medical History Past Medical History: Cancer, Chest Pain / Angina, GERD/Reflux, Hyperlipidemia, Hypertension, Osteoarthritis (OA), Prostate Disorder, Renal Disease Additional Past Medical History / Comment(s): L renal cancer with nephrectomy/mets L lung and pt states spot on sternum is gone now-currently taking oral chemotherapy, chronic renal failure stage II, lower leg edema thought to be due to HTN medications, BPH, chronic low back pain, arthritis vs gout r great toe. 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 Past Anesthesia/Blood Transfusion Reactions: No Reported Reaction Past Psychological History: Depression Smoking Status: Never smoker Past Alcohol Use History: Occasional Past Drug Use History: Marijuana - Past Family History Father Family Medical History: Cancer, Hypertension, Myocardial Infarction ([place]) Additional Family Medical History / Comment(s): SKIN CANCER Mother Family Medical History: Cancer Additional Family Medical History / Comment(s): breast cancer - throat cancer Sister(s) Family Medical History: Cancer Additional Family Medical History / Comment(s): SKIN CANCER General Exam Limitations: no limitations General appearance: alert, in no apparent distress Head exam: Present: atraumatic, normocephalic, normal inspection Eye exam: Present: normal appearance, PERRL, EOMI. Absent: scleral icterus, conjunctival injection, periorbital swelling ENT exam: Present: normal exam, normal oropharynx, mucous membranes moist, TM's normal bilaterally Neck exam: Present: normal inspection, full ROM. Absent: tenderness, meningismus, lymphadenopathy Respiratory exam: Present: normal lung sounds bilaterally. Absent: respiratory distress, wheezes, rales, rhonchi, stridor Cardiovascular Exam: Present: regular rate, normal rhythm, normal heart sounds. Absent: systolic murmur, diastolic murmur, rubs, gallop, clicks GI/Abdominal exam: Present: soft, normal bowel sounds. Absent: distended, tend erness, guarding, rebound, rigid Back exam: Absent: CVA tenderness (R), CVA tenderness (L) Neurological exam: Present: alert Skin exam: Present: warm, dry, intact, normal color. Absent: rash Course Vital Signs 01/07/21 01/07/21 01/07/21 10:39 10:54 11:52 Temperature 98 F Pulse Rate 58 L 60 53 L Respiratory 18 16 16 Rate Blood Pressure 151/75 152/88 152/88 O2 Sat by Pulse 99 99 97 Oximetry Chest Pain MDM - MDM 80-year-old presented for chest pain patient's troponin is 0.032. Patient is asymptomatic at this time though has significant past history will be admitted for cardiac rule out. Disposition Clinical Impression: Chest pain, GERD (gastroesophageal reflux disease) Disposition: ADMITTED IP TO THIS HOSP Condition: Fair Referrals: [facility],Clinic [Primary Care Provider] - 1-2 days
[2021-01-07 11:13] LABS: Basophils # (A) 0.1 k/uL (0-0.2); Basophils % (A) 1 %; Eosinophils # (A) 0.4 k/uL (0-0.7); Eosinophils % (A) 7 %; HCT 39.5 % (39.0-53.0); HGB 13.3 gm/dL (13.0-17.5); Lymphocytes # (A) 1.8 k/uL (1.0-4.8); Lymphocytes % (A) 29 %; MCH 30.3 pg (25.0-35.0); MCHC 33.7 g/dL (31.0-37.0); MCV 89.9 fL (80.0-100.0); Mean Platelet Volume 8.4; Monocytes # (A) 0.7 k/uL (0-1.0); Monocytes % (A) 11 %; Neutrophils # (A) 3.1 k/uL (1.3-7.7); Neutrophils % (A) 50 %; Platelet Count 276 k/uL (150-450); RDW 13.5 % (11.5-15.5); WBC 6.3 k/uL (3.8-10.6)
[2021-01-07 11:17] LABS: INR 0.9 (<1.2); Partial Thromboplastin Time 24.2 sec (22.0-30.0); Prothrombin Time 9.7 sec (9.0-12.0)
--- NOTE | 2021-01-07 11:22 | XR ---
EXAMINATION TYPE: XR chest 2V DATE OF EXAM: 01/07/2021 COMPARISON: Chest x-ray August 28, 2020 HISTORY: Chest pain. TECHNIQUE: Frontal and lateral views of the chest are obtained. FINDINGS: There is chronic emphysematous and mild parenchymal change bilaterally without suspicious new focal airspace opacity, pleural effusion, or pneumothorax seen. The cardiac silhouette size jr ins within normal limits. Overlying EKG leads are redemonstrated. The osseous structures are intact. Surgical clips epigastric region noted. IMPRESSION: Chronic changes without acute process.
[2021-01-07 11:40] LABS: Albumin 4.1 g/dL (3.5-5.0); Calcium 10.3 mg/dL (8.4-10.2); Magnesium 2.1 mg/dL (1.6-2.3); Potassium 4.4 mmol/L (3.5-5.1); Total Bilirubin 0.4 mg/dL (0.2-1.3); Total Protein 6.9 g/dL (6.3-8.2)
[2021-01-07] MEDS ORDERED: HEPARIN SODIUM 1,000 UN/ML (10ML VL) IV ONE (12:24)
[2021-01-07] MEDS ORDERED: NITROGLYCERIN SL TABS 0.4 MG TAB SUBLINGUAL PRN (12:24)
[2021-01-07] MEDS ORDERED: HEPARIN SOD,PORK IN 0.45% NACL 25,000 UNIT in 0.45% NACL 1 250ML.BAG IV SCH (12:30)
--- NOTE | 2021-01-07 12:51 | HP ---
HISTORY AND PHYSICAL DATE OF SERVICE: 01/07/2021 CHIEF COMPLAINTS: Abdomen and chest pain. HISTORY OF PRESENT ILLNESS: This 80-year-old gentleman with a past medical history of multiple medical problems including GERD, hypertension, hyperlipidemia, history of DJD being followed by [facility] and as well as Dr. Cordova in the outpatient setting is complaining of abdominal and chest pain today. The pain started in the upper abdomen, which went up, which is burning sensation. There is no radiation of pain. There is no associated palpitation, nausea, vomiting, diarrhea. The patient came to [facility] and admitted for further evaluation and treatment. EKG shows no history ST-T changes. Creatinine is elevated to 1.88. The baseline creatinine was also elevated indicating chronic kidney disease stage 3. EKG showed mild ST changes with sinus bradycardia, heart rate at 57. Chest x-ray was chronic changes without any acute process. There is no history of any fever, rigors, chills at this time. The patient had completed 2 doses of COVID vaccine at this time. PAST MEDICAL HISTORY: History of GERD, hypertension, hyperlipidemia, history of DJD, history of prostate disorder, history of left renal cancer with nephrectomy, history of depression. MEDICATIONS: Medications prior to admission include medications are home medications are: 1. Protonix. 2. Iron. 3. Flomax. 4. Pravachol. 5. Nitrostat. 6. Lidoderm. 7. Plavix. 8. Aspirin. 9. Metoprolol. 10.Imdur. ALLERGIES: Allergies are Lipitor, clindamycin. FAMILY HISTORY: History of hypertension, history myocardial infarction, skin cancer. SOCIAL HISTORY: Occasional THC. Occasional alcohol. No history of smoking. REVIEW OF SYSTEMS: ENT: Diminished hearing and diminished vision. CARDIOVASCULAR SYSTEM: As mentioned earlier. RESPIRATORY SYSTEM: As mentioned earlier. GI: As mentioned earlier. : No dysuria. NERVOUS SYSTEM: No numbness, weakness. ALLERGY/IMMUNOLOGY: No asthma or hayfever. MUSCULOSKELETAL: As mentioned earlier. HEMATOLOGY/ONCOLOGY: As mentioned earlier. ENDOCRINE: No history of diabetes of hypothyroidism. CONSTITUTIONAL: As mentioned earlier. DERMATOLOGY: Negative. RHEUMATOLOGY: Negative. PSYCHIATRY: As mentioned earlier. PHYSICAL EXAMINATION: Patient is alert and oriented x3. Pulse 53, blood pressure 152/88, respirations 16, temperature 98 degrees, pulse ox 97% on room air. HEENT: Conjunctivae normal. NECK: No jugular venous distention. CARDIOVASCULAR: S1, S2 muffled. RESPIRATORY: Breath sounds diminished at the bases. No rhonchi, no crackles. ABDOMEN: Soft, nontender. No mass palpable. LEGS: No edema, no swelling. NERVOUS SYSTEM: Higher functions as mentioned earlier. Moves all 4 limbs. No focal motor or sensory deficits. LYMPHATICS: No lymphadenopathy of the neck, axillae or groin. SKIN: No ulcer, rash or bleeding. JOINTS: No active deforming arthropathy. LABS: CBC within normal limits. Sodium 136. Other labs are noted. ASSESSMENT: 1. Chest pain for evaluation, possible unstable angina. 2. Possible gastroesophageal reflux disease. 3. Hyponatremia. 4. Increased creatinine with chronic kidney disease stage 3. 5. History of hypertension. 6. Hyperlipidemia. 7. History of degenerative joint disease. 8. History of prostate disorder. 9. History of left renal cancer with nephrectomy. 10.History of cardiac catheterization. 11.History of depression. RECOMMENDATIONS AND DISCUSSION: This 80-year-old gentleman presented with multiple complex medical issues, we will monitor the patient closely. Continue the current medications. Continue treatment. Otherwise resume the home medications and treatment with proton pump inhibitors. We will closely monitor. Cardiology consultation. Rule out myocardial infarction. Guarded prognosis. Further recommendations to follow. A copy of dictation forwarded to Dr. Cordova who is the primary physician. RON / ARNALDO: [id number] /
[2021-01-07] MEDS ORDERED: DICLOFENAC SODIUM GEL 100 GM TUBE TOPICAL PRN (17:47)
[2021-01-07] MEDS: METOPROLOL TARTRATE 25 MG TAB PO SCH (21:16)
[2021-01-07] MEDS: TAMSULOSIN 0.4 MG CAP.ER.24H PO SCH (21:16)
[2021-01-07] MEDS: PRAVASTATIN SODIUM 20 MG TAB PO SCH (21:16)
[2021-01-08 07:25] LABS: Cholesterol 161 mg/dL (<200); HDL Cholesterol 52 mg/dL (40-60); LDL Cholesterol,Calculated 93 mg/dL (0-99); Triglycerides 80 mg/dL (<150)
[2021-01-08] MEDS ORDERED: PANTOPRAZOLE 40 MG TABLET PO SCH ×2 (07:30→21:00)
[2021-01-08] MEDS: FERROUS SULFATE 325 MG TAB PO SCH (08:02)
[2021-01-08] MEDS: CLOPIDOGREL 75 MG TAB PO SCH (08:02)
[2021-01-08] MEDS: LIDOCAINE 5% PATCH TOPICAL SCH (08:03)
[2021-01-08] MEDS: METOPROLOL TARTRATE 25 MG TAB PO SCH ×3 (08:14→21:51)
[2021-01-08] MEDS ORDERED: ISOSORBIDE MONONITRATE ER 30 MG TAB.ER.24H PO SCH (09:00)
[2021-01-08] MEDS ORDERED: ASPIRIN 325 MG TAB PO SCH (09:00)
--- NOTE | 2021-01-08 09:58 | P.CRDCN ---
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 Mcneal. The follows in the office with Dr. Sultana. We have been asked to see in consultation for chest pain. He states that 2-3 weeks ago, he ate and started having burning abdominal pain, it radiated up to epigastric, it resolved 2-3 minutes later. This usually happens always after he eats or if he doesn't take his Pepcid. Yesterday, he states his chest burning felt different. He did not eat breakfast, he took his Pepcid, He started to have chest pain after he walked to his car on his way to work. Similar description, burning started in his abdomen, radiating up to his anterior chest and now radiating to his back. He states it doesnt get worse with activity. He denies associated nausea, diaphoresis, shortness of breath, lightheadedness. He is a non-diabetic. He is a former smoker. On exam patient currently does not have any chest pain. 02/2020:He underwent cardiac catheterization secondary to mild troponin elevation revealing 20-30% plaque of the proximal LAD, an area of stenosis at the takeoff of the second diagonal branch 40-50%, OM branch of the circumflex with a 20-30% plaque in mid intimal disease of the RCA 20%. DIAGNOSTICS EKG reveals sinus bradycardia heart rate 57, new T wave inversion in the anteriorlateral leads. Second EKG from this morning also with T wave inversions in the anteriorlateral leads that are new from Prior EKG Telemetry tracings sinus mechanism heart rate in the 50-60s Chest xray negative for an acute cardiopulmonary process. Laboratory reviewed, troponin negative 3, CBC is unremarkable, sodium 136, potassium 4.4, serum creatinine 1.88, magnesium 2.1 Current cardiac medications include aspirin 81 mg daily, Plavix 75 mg daily, Imdur 30 mg daily, metoprolol 25 mg twice a day and pravastatin 20 mg. Most recent echocardiogram obtained March 2020 revealed preserved LV systolic function with ejection fraction 50-55%, trace to mild AI REVIEW OF SYSTEMS At the time of my exam: CONSTITUTIONAL: Denies fever or chills. CARDIOVASCULAR: + chest pain,Denies shortness of breath, orthopnea, PND or palpitations. RESPIRATORY: Denies cough. GASTROINTESTINAL: Denies abdominal pain, diarrhea, constipation, nausea or vomiting. MUSCULOSKELETAL: Denies myalgias. NEUROLOGIC: Denies numbness, tingling or weakness. ENDOCRINE: Denies fatigue, weight change, polydipsia or polyurina. GENITOURINARY: Denies burning, hematuria or urgency with micturation. HEMATOLOGIC: Denies history of anemia or bleeding. PHYSICAL EXAMINATION Blood pressure 126/76 heart rate 60 afebrile and maintaining oxygen saturation on room air. CONSTITUTIONAL: No apparent distress. HEENT: Head is normocephalic. Pupils are equal, round. Sclerae anicteric. Mucous membranes of the mouth are moist. No JVD. No carotid bruit. CHEST EXAMINATION: Lungs are clear to auscultation. No chest wall tenderness is noted on palpation or with deep breathing. HEART EXAMINATION: Regular rate and rhythm. S1, S2 heard. No murmurs, gallops or rub. ABDOMEN: Soft, nontender. Positive bowel sounds. EXTREMITIES: 2+ peripheral pulses, no lower extremity edema and no calf tenderness. NEUROLOGIC EXAMINATION: Patient is awake, alert and oriented x3. ASSESSMENT Chest pain, atypical, acute coronary syndrome has been ruled out. New T wave inversion in the anteriorlateral leads noted. Hypertension Chronic kidney disease s/p left nephrectomy Renal carcinoma Dyslipidemia Former nicotine dependence PLAN Obtain 2D echocardiogram and doppler study to assess cardiac structure and function. At this time patient is not a candidate for coronary angiography, due to renal function. We recommend to treat the patient medically at this time. Continue cardiac telemetry this morning and early afternoon. If no acute changes on echocardiogram, patient without any chest pain, ok to discharge from cardiology perspective and follow up outpatient Follow up with Dr. Sultana Thank you kindly for this consultation. Nurse Practitioner note has been reviewed, I agree with a documented findings and plan of care. Patient was seen and examined. Past Medical History Past Medical History: Cancer, Chest Pain / Angina, GERD/Reflux, Hyperlipidemia, Hypertension, Osteoarthritis (OA), Prostate Disorder, Renal Disease Additional Past Medical History / Comment(s): L renal cancer with nephrectomy/mets L lung and pt states spot on sternum is gone now-currently t aking oral chemotherapy, chronic renal failure stage II, lower leg edema thought to be due to HTN medications, BPH, chronic low back pain, arthritis vs gout r great toe. 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 Past Anesthesia/Blood Transfusion Reactions: No Reported Reaction Past Psychological History: Depression Additional Psychological History / Comment(s): Pt resides with his spouse. He is an [employer] . He is independent. Smoking Status: Former smoker Past Alcohol Use History: Occasional Additional Past Alcohol Use History / Comment(s): Pt started smoking in 1960 and quit in the 1970s. Past Drug Use History: Marijuana Additional Drug Use History / Comment(s): Pt uses edible marijuiana on occasion. - Past Family History Father Family Medical History: Cancer, Hypertension, Myocardial Infarction (ID) Additional Family Medical History / Comment(s): SKIN CANCER Mother Family Medical History: Cancer Additional Family Medical History / Comment(s): breast cancer - throat cancer Sister(s) Family Medical History: Cancer Additional Family Medical History / Comment(s): SKIN CANCER Medications and Allergies Home Medications Medication Instructions Recorded Confirmed Type Metoprolol Tartrate 25 mg PO BID 10/12/17 01/07/21 History Tamsulosin HCl [Flomax] 0.4 mg PO HS 10/12/17 01/07/21 History Aspirin [Adult Low Dose Aspirin EC] 81 mg PO HS 02/29/20 01/07/21 History Clopidogrel [Plavix] 75 mg PO DAILY #90 tab 03/02/20 01/07/21 Rx Isosorbide Mononitrate ER [Imdur] 30 mg PO DAILY #90 tab.er.24h 03/02/20 Rx Nitroglycerin Sl Tabs [Nitrostat] 0.4 mg SUBLINGUAL Q5M PRN #25 tab 03/02/20 01/07/21 Rx Diclofenac Sodium [Voltaren Gel] 1 applic TOPICAL BID PRN 03/26/20 01/07/21 History Pravastatin Sodium [Pravachol] 20 mg PO HS 08/28/20 01/07/21 History Ferrous Sulfate [Iron] 325 mg PO DAILY 01/07/21 01/07/21 History Lidocaine 5% Patch [Lidoderm] 1 patch TOPICAL DAILY 01/07/21 01/07/21 History Pantoprazole Sodium [Protonix] 20 mg PO DAILY 01/07/21 01/07/21 History Allergies Allergy/AdvReac Type Severity Reaction Status Date / Time atorvastatin calcium Allergy Unknown Verified 01/07/21 11:36 [From Lipitor] clindamycin AdvReac JOINT PAIN Verified 01/07/21 11:36 Physical Exam Vitals: Vital Signs Temp Pulse Pulse Resp BP BP Pulse Ox 01/08/21 02:00 98.1 F 60 16 126/76 98 01/07/21 20:00 97.8 F 69 18 147/83 98 01/07/21 15:00 98.2 F 63 14 184/92 100 01/07/21 12:59 97.9 F 58 L 16 152/88 98 01/07/21 11:52 53 L 16 152/88 97 01/07/21 10:54 60 16 152/88 99 01/07/21 10:39 98 F 58 L 18 151/75 99 Intake and Output 01/07/21 01/07/21 01/08/21 14:59 22:59 06:59 Intake Total 46.827 37.336 Balance 46.827 37.336 Intake: Intake, IV Titration 46.827 37.336 Amount Heparin Sod,Pork in 0.45% 46.827 37.336 NaCl 25,000 unit In 0.45 % NaCl 1 250ml.bag @ 12 UNITS/KG/HR 7.131 mls/hr IV .Q24H [facility] Rx#: [id number] Other: Voiding Method Toilet # Voids 2 2 Weight 59.421 kg 59.421 kg Results 01/07/21 10:52 01/07/21 10:52 Cardiac Enzymes 01/07/21 01/07/21 01/07/21 Range/Units 10:52 10:52 14:05 AST 22 (17-59) U/L Troponin I 0.032 0.033 (0.000-0.034) ng/mL 01/07/21 Range/Units 18:36 AST (17-59) U/L Troponin I 0.022 (0.000-0.034) ng/mL Coagulation 01/07/21 01/07/21 01/08/21 Range/Units 10:52 18:36 01:16 PT 9.7 (9.0-12.0) sec APTT 24.2 69.7 H 49.2 H (22.0-30.0) sec CBC 01/07/21 Range/Units 10:52 WBC 6.3 (3.8-10.6) k/uL RBC 4.40 (4.30-5.90) m/uL Hgb 13.3 (13.0-17.5) gm/dL Hct 39.5 (39.0-53.0) % Plt Count 276 (150-450) k/uL Comprehensive Metabolic Panel 01/07/21 Range/Units 10:52 Sodium 136 L (137-145) mmol/L Potassium 4.4 (3.5-5.1) mmol/L Chloride 103 (98-107) mmol/L Carbon Dioxide 26 (22-30) mmol/L BUN 40 H (9-20) mg/dL Creatinine 1.88 H (0.66-1.25) mg/dL Glucose 83 (74-99) mg/dL Calcium 10.3 H (8.4-10.2) mg/dL AST 22 (17-59) U/L ALT 13 (4-49) U/L Alkaline Phosphatase 77 (38-126) U/L Total Protein 6.9 (6.3-8.2) g/dL Albumin 4.1 (3.5-5.0) g/dL Current Medications Generic Name Dose Route Start Last Admin Trade Name Freq PRN Reason Stop Dose Admin Aspirin 325 mg 01/08/21 09:00 Aspirin 325 Mg Tab PO DAILY [facility] Clopidogrel Bisulfate 75 mg 01/08/21 09:00 Clopidogrel 75 Mg Tab PO DAILY [facility] Diclofenac Sodium 2 gm 01/07/21 17:47 Diclofenac Sodium Gel 100 Gm Tube TOPICAL BID PRN Pain Ferrous Sulfate 325 mg 01/08/21 09:00 Ferrous Sulfate 325 Mg Tab PO DAILY [facility] Heparin Sodium/Sodium Chloride 250 mls @ 7.131 mls/hr 01/07/21 12:30 01/08/21 01:45 25,000 unit/ Sodium Chloride IV 10 units/kg/hr .Q24H JAY JAY 5.942 mls/hr Titration Protocol 12 UNITS/KG/HR Isosorbide Mononitrate 30 mg 01/08/21 09:00 Isosorbide Mononitrate Er 30 Mg Tab.Er.24h PO DAILY [facility] Lidocaine 1 patch 01/08/21 09:00 Lidocaine 5% Patch TOPICAL DAILY [facility] Metoprolol Tartrate 25 mg 01/07/21 21:00 01/07/21 21:16 Metoprolol Tartrate 25 Mg Tab PO 25 mg BID JAY JAY Administration Nitroglycerin 0.4 mg 01/07/21 12:24 Nitroglycerin Sl Tabs 0.4 Mg Tab SUBLINGUAL Q5M PRN Chest Pain Pantoprazole Sodium 40 mg 01/08/21 07:30 Pantoprazole 40 Mg Tablet PO AC-BRKFST [facility] Pravastatin Sodium 20 mg 01/07/21 21:00 01/07/21 21:16 Pravastatin Sodium 20 Mg Tab PO 20 mg HS JAY JAY Administration Tamsulosin HCl 0.4 mg 01/07/21 21:00 01/07/21 21:16 Tamsulosin 0.4 Mg Cap.Er.24h PO 0.4 mg HS JAY JAY Administration Intake and Output 01/07/21 01/07/21 01/08/21 14:59 22:59 06:59 Intake Total 46.827 37.336 Balance 46.827 37.336 Intake: Intake, IV Titration 46.827 37.336 Amount Heparin Sod,Pork in 0.45% 46.827 37.336 NaCl 25,000 unit In 0.45 % NaCl 1 250ml.bag @ 12 UNITS/KG/HR 7.131 mls/hr IV .Q24H [facility] Rx#: [id number] Other: Voiding Method Toilet # Voids 2 2 Weight 59.421 kg 59.421 kg Patient Weight 01/08/21 06:59 Weight 59.421 kg 01/07/21 10:52 01/07/21 10:52
--- NOTE | 2021-01-08 13:33 | ECHOF ---
Referral Reason:chest pain ekg changes MEASUREMENTS -------- HEIGHT: 170.2 cm WEIGHT: 59.4 kg BP: RVIDd: 3.0 cm (< 3.3) IVSd: 1.3 cm (0.6 - 1.1) LVIDd: 4.2 cm (3.9 - 5.3) LVPWd: 1.1 cm (0.6 - 1.1) IVSs: 1.8 cm LVIDs: 2.4 cm LVPWs: 1.5 cm LA Diam: 3.1 cm (2.7 - 3.8) LAESV Index (A-L): 29.14 ml/m Ao Diam: 3.6 cm (2.0 - 3.7) MV EXCURSION: 5.206 mm (> 18.000) MV EF SLOPE: 22 mm/s (70 - 150) EPSS: 1.9 cm MV E Jian: 0.33 m/s MV DecT: 477 ms MV A Jian: 0.75 m/s MV E/A Ratio: 0.44 AR PHT: 841 ms RAP: 5.00 mmHg RVSP: 24.33 mmHg TAPSE: 22.21 mm FINDINGS -------- Sinus rhythm. This was a technically good study. The left ventricular size is normal. There is mild concentric left ventricular hypertrophy. Overa ll left ventricular systolic function is low-normal with, an EF between 50 - 55 %. The right ventricle is normal in size. LA is midly dilated 29-33ml/m2. The right atrium is normal in size. Interatrial and interventricular septum intact. The aortic valve is trileaflet and appears structurally normal. There is [id number] aortic re gurgitation. There is trace to mild mitral regurgitation. Mild tricuspid regurgitation present. Right ventricular systolic pressure is normal at < 35 mmHg. Moderate pulmonic regurgitation. The aortic root size is normal. Normal inferior vena cava with normal inspiratory collapse consistent with estimated right atrial pre ssure of 5 mmHg. There is no pericardial effusion. CONCLUSIONS -------- 1. The left ventricular size is normal. 2. There is mild concentric left ventricular hypertrophy. 3. Overall left ventricular systolic function is low-normal with, an EF between 50 - 55 %. 4. LA is midly dilated 29-33ml/m2. 5. The aortic valve is trileaflet and appears structurally normal. 6. There is [id number] aortic regurgitation. 7. There is trace to mild mitral regurgitation. 8. Mild tricuspid regurgitation present. 9. Moderate pulmonic regurgitation. 10. There is no pericardial effusion. LINK KNITTING MACHINE OPERATOR: Ada Gaines RDCS
[2021-01-08] MEDS: PANTOPRAZOLE 40 MG/10 ML VIAL IVP SCH ×2 (15:08→21:53)
--- NOTE | 2021-01-08 15:13 | P.PN ---
Subjective Progress Note Date: 01/08/21 This is a 80-year-old male who was recently admitted with abdominal and chest pain and is being closely monitored. Cardiology also following and patient underwent 2-D echo which shows mild concentric left ventricular hypertrophy with overall left ventricular systolic function is low to normal with an EF of 50-55% with mild to moderate aortic regurgitation and a trace to mild mitral regurgitation and tricuspid present, moderate pulmonic regurgitation with no pericardial effusion noted. Patient continues to have epigastric burning sensation today and will increase Protonix IV twice daily. Patient denies any feelings of palpitations or shortness of breath. Patient denies nausea or vomiting but does continue to have acid reflux sensation while eating. Patient normally is on Protonix 40 mg daily by mouth in the outpatient setting. Cardiology is following and discussing possible outpatient stress test once kidney functions are more stabilized. Review of systems: Constitutional: No reports of fatigue, fever, or chills Cardiovascular: Reports chest pain no reports of palpitations Respiratory: No reports of shortness of breath or cough GI: No reports of nausea, vomiting, or diarrhea, reports burning sensation in the epigastric area continued : No reports of dysuria or retention Neurovascular: No reports of weakness or numbness All medications have been reviewed Active Medications Aspirin (Aspirin 81 Mg) 81 mg PO DAILY [facility] Clopidogrel Bisulfate (Clopidogrel 75 Mg Tab) 75 mg PO DAILY [facility] Last Admin: 01/08/21 08:02 Dose: 75 mg Documented by: Diclofenac Sodium (Diclofenac Sodium Gel 100 Gm Tube) 2 gm TOPICAL BID PRN PRN Reason: Pain Ferrous Sulfate (Ferrous Sulfate 325 Mg Tab) 325 mg PO DAILY [facility] Last Admin: 01/08/21 08:02 Dose: 325 mg Documented by: Isosorbide Mononitrate (Isosorbide Mononitrate Er 60 Mg Tab.Er.24h) 60 mg PO DAILY [facility] Lidocaine (Lidocaine 5% Patch) 1 patch TOPICAL DAILY [facility] Last Admin: 01/08/21 08:03 Dose: 1 patch Documented by: Metoprolol Tartrate (Metoprolol Tartrate 25 Mg Tab) 25 mg PO BID [facility] Last Admin: 01/08/21 09:58 Dose: 25 mg Documented by: Nitroglycerin (Nitroglycerin Sl Tabs 0.4 Mg Tab) 0.4 mg SUBLINGUAL Q5M PRN PRN Reason: Chest Pain Pantoprazole Sodium (Pantoprazole 40 Mg/10 Ml Vial) 40 mg IVP BID [facility] Pravastatin Sodium (Pravastatin Sodium 20 Mg Tab) 20 mg PO [facility] Last Admin: 01/07/21 21:16 Dose: 20 mg Documented by: Ranolazine (Ranolazine 500 Mg Tab.Er.12h) 500 mg PO Q12HR [facility] Tamsulosin HCl (Tamsulosin 0.4 Mg Cap.Er.24h) 0.4 mg PO [facility] Last Admin: 01/07/21 21:16 Dose: 0.4 mg Documented by: Objective - Vital Signs Vital signs: Vital Signs Temp 98.0 F 01/08/21 13:48 Pulse 63 01/08/21 13:48 Resp 16 01/08/21 14:00 BP 122/69 01/08/21 13:48 Pulse Ox 97 01/08/21 13:48 Intake & Output 01/07/21 01/08/21 01/08/21 18:59 06:59 18:59 Intake Total 84.163 Balance 84.163 Weight 59.421 kg Intake: Intake, IV Titration 84.163 Amount Heparin Sod,Pork in 0.45% 84.163 NaCl 25,000 unit In 0.45 % NaCl 1 250ml.bag @ 12 UNITS/KG/HR 7.131 mls/hr IV .Q24H [facility] Rx#: [id number] Other: Voiding Method Toilet Toilet # Voids 1 2 1 - Exam Gen: This is a 80-year-old male sitting up in bed awake, alert and oriented 3, well-developed, well-nourished. Temp is 98F, pulse is 63, respirations are 16, blood pressure is 122/69, oxygen saturation is 97% on room air. HEENT: Head is atraumatic, normocephalic. Pupils equal, round. Sclerae is anicteric. NECK: Supple. No JVD. No lymphadenopathy. No thyromegaly. LUNGS: Breath sounds diminished bilaterally with no wheezing or rhonchi noted. No intercostal retractions. HEART: S1, S2 are muffled ABDOMEN: Soft. Bowel sounds are present. No masses. No tenderness. EXTREMITIES: No pedal edema. No calf tenderness. NEUROLOGICAL: Patient is awake, alert and oriented x3. Cranial nerves 2 through 12 are grossly intact. - Labs CBC & Chem 7: 01/07/21 10:52 01/07/21 10:52 Labs: Abnormal Lab Results - Last 24 Hours (Table) 01/07/21 01/08/21 Range/Units 18:36 01:16 APTT 69.7 H 49.2 H (22.0-30.0) sec Assessment and Plan Assessment: Chest pain for evaluation, possible unstable angina Possible gastroesophageal reflux disease Hyponatremia increased creatinine with chronic kidney disease stage III history of hypertension Hyperlipidemia history of degenerative joint disease History of prostate disorder history of left renal cancer with nephrectomy history of cardiac catheterization History of depression Recommendations and discussion: Recommend continue with current medications, management, and symptomatic treatment. Patient underwent 2-D echo as mentioned previously and cardiology is following. Recommendations for possible outpatient stress testing follow-up once kidney functions have normalized. Patient continues on Protonix and will switch to IV twice daily as patient continues to have burning sensation in the epigastric area. Will repeat a.m. labs and continue to monitor closely. Due to multiple complex medical issues, prognosis is guarded. Further recommendations to follow. Possible discharge in 24-48 hours.
[2021-01-08] MEDS: TAMSULOSIN 0.4 MG CAP.ER.24H PO SCH (21:51)
[2021-01-08] MEDS: RANOLAZINE 500 MG TAB.ER.12H PO SCH (21:51)
[2021-01-08] MEDS: PRAVASTATIN SODIUM 20 MG TAB PO SCH (21:51)
[2021-01-09 02:29] VITALS: RESP 16
[2021-01-09 07:08] LABS: Basophils # (A) 0.1 k/uL (0-0.2); Basophils % (A) 1 %; Eosinophils # (A) 0.4 k/uL (0-0.7); Eosinophils % (A) 6 %; HCT 39.1 % (39.0-53.0); HGB 13.5 gm/dL (13.0-17.5); Lymphocytes # (A) 1.6 k/uL (1.0-4.8); Lymphocytes % (A) 26 %; MCHC 34.5 g/dL (31.0-37.0); MCV 89.9 fL (80.0-100.0); Mean Platelet Volume 8.2; Monocytes # (A) 0.6 k/uL (0-1.0); Monocytes % (A) 11 %; Neutrophils # (A) 3.4 k/uL (1.3-7.7); Neutrophils % (A) 55 %; Platelet Count 249 k/uL (150-450); RBC 4.35 m/uL (4.30-5.90); RDW 13.4 % (11.5-15.5); WBC 6.1 k/uL (3.8-10.6)
[2021-01-09 07:24] LABS: African American GFR (CKD) 34 (>60 ml/min/1.73 sqM); Anion Gap 9 mmol/L; Blood Urea Nitrogen 34 mg/dL (9-20); Calcium 9.9 mg/dL (8.4-10.2); Carbon Dioxide 23 mmol/L (22-30); Chloride 104 mmol/L (98-107); Glucose 70 mg/dL (74-99); Non-African American GFR(CKD) 29 (>60 ml/min/1.73 sqM); Potassium 4.8 mmol/L (3.5-5.1); Sodium 136 mmol/L (137-145)
[2021-01-09 07:58] VITALS: BP 104/66; TEMP 98.4
[2021-01-09] MEDS: METOPROLOL TARTRATE 25 MG TAB PO SCH (07:58)
[2021-01-09] MEDS: CLOPIDOGREL 75 MG TAB PO SCH (07:58)
[2021-01-09] MEDS: LIDOCAINE 5% PATCH TOPICAL SCH (07:58)
[2021-01-09] MEDS: PANTOPRAZOLE 40 MG/10 ML VIAL IVP SCH (07:58)
[2021-01-09] MEDS: RANOLAZINE 500 MG TAB.ER.12H PO SCH (07:59)
[2021-01-09] MEDS: FERROUS SULFATE 325 MG TAB PO SCH (07:59)
[2021-01-09 08:37] VITALS: PULSE 63
[2021-01-09] MEDS ORDERED: ASPIRIN 81 MG PO SCH (09:00)
[2021-01-09] MEDS ORDERED: ISOSORBIDE MONONITRATE ER 60 MG TAB.ER.24H PO SCH (09:00)
--- NOTE | 2021-01-09 09:58 | P.PN ---
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 Mcneal. The follows in the office with Dr. Sultana. We have been asked to see in co nsultation for chest pain. He states that 2-3 weeks ago, he ate and started having burning abdominal pain, it radiated up to epigastric, it resolved 2-3 minutes later. This usually happens always after he eats or if he doesn't take his Pepcid. Yesterday, he states his chest burning felt different. He did not eat breakfast, he took his Pepcid, He started to have chest pain after he walked to his car on his way to work. Similar description, burning started in his abdomen, radiating up to his anterior chest and now radiating to his back. He states it doesnt get worse with activity. He denies associated nausea, diaphoresis, shortness of breath, lightheadedness. He is a non-diabetic. He is a former smoker. On exam patient currently does not have any chest pain. 02/2020:He underwent cardiac catheterization secondary to mild troponin elevation revealing 20-30% plaque of the proximal LAD, an area of stenosis at the takeoff of the second diagonal branch 40-50%, OM branch of the circumflex with a 20-30% plaque in mid intimal disease of the RCA 20%. 01/09 Patient seen and examined. He admits to some mild epigastric pain this morning however no chest pain. He was started on Ranexa. Echocardiogram reviewed with ejection fraction 50-55%. DIAGNOSTICS EKG reveals sinus bradycardia heart rate 57, new T wave inversion in the anteriorlateral leads. Second EKG from this morning also with T wave inversions in the anteriorlateral leads that are new from Prior EKG Telemetry tracings sinus mechanism heart rate in the 50-60s Chest xray negative for an acute cardiopulmonary process. Laboratory reviewed, troponin negative 3, CBC is unremarkable, sodium 136, potassium 4.4, serum creatinine 1.88, magnesium 2.1 Current cardiac medications include aspirin 81 mg daily, Plavix 75 mg daily, Imdur 30 mg daily, metoprolol 25 mg twice a day and pravastatin 20 mg. Most recent echocardiogram obtained March 2020 revealed preserved LV systolic function with ejection fraction 50-55%, trace to mild AI REVIEW OF SYSTEMS At the time of my exam: CONSTITUTIONAL: Denies fever or chills. CARDIOVASCULAR: + chest pain,Denies shortness of breath, orthopnea, PND or palpitations. RESPIRATORY: Denies cough. GASTROINTESTINAL: Denies abdominal pain, diarrhea, constipation, nausea or vomiting. MUSCULOSKELETAL: Denies myalgias. NEUROLOGIC: Denies numbness, tingling or weakness. ENDOCRINE: Denies fatigue, weight change, polydipsia or polyurina. GENITOURINARY: Denies burning, hematuria or urgency with micturation. HEMATOLOGIC: Denies history of anemia or bleeding. PHYSICAL EXAMINATION Vitals reviewed. CONSTITUTIONAL: No apparent distress. HEENT: Head is normocephalic. Pupils are equal, round. Sclerae anicteric. Mucous membranes of the mouth are moist. No JVD. No carotid bruit. CHEST EXAMINATION: Lungs are clear to auscultation. No chest wall tenderness is noted on palpation or with deep breathing. HEART EXAMINATION: Regular rate and rhythm. S1, S2 heard. No murmurs, gallops or rub. ABDOMEN: Soft, nontender. Positive bowel sounds. EXTREMITIES: 2+ peripheral pulses, no lower extremity edema and no calf tenderness. NEUROLOGIC EXAMINATION: Patient is awake, alert and oriented x3. ASSESSMENT Chest pain, atypical, acute coronary syndrome has been ruled out. New T wave inversion in the anteriorlateral leads noted. Hypertension Chronic kidney disease s/p left nephrectomy Renal carcinoma Dyslipidemia Former nicotine dependence PLAN Echo shows preserved ejection fraction without significant wall motion abnormalities. His chest pain has resolved and only has atypical epigastric pain, or likely related to GI source. We will continue to treat medically with Ranexa and antianginals. Patient appears stable for discharge home and follow- up with cardiology in 1 week. Objective - Vital Signs Vital signs: Vital Signs Temp 98.4 F 01/09/21 07:20 Pulse 63 01/09/21 08:00 Resp 16 01/09/21 08:00 BP 104/66 01/09/21 07:20 Pulse Ox 98 01/09/21 07:20 Intake & Output 01/08/21 01/09/21 01/09/21 18:59 06:59 18:59 Other: Voiding Method Toilet Toilet # Voids 1 1 - Labs CBC & Chem 7: 01/09/21 06:14 01/09/21 06:14 Labs: Abnormal Lab Results - Last 24 Hours (Table) 01/09/21 Range/Units 06:14 Sodium 136 L (137-145) mmol/L BUN 34 H (9-20) mg/dL Creatinine 2.09 H (0.66-1.25) mg/dL Glucose 70 L (74-99) mg/dL
--- NOTE | 2021-01-10 00:55 | DS ---
DISCHARGE SUMMARY DATE OF SERVICE: 01/09/2021 FINAL DIAGNOSES: 1. Chest pain myocardial infarction ruled out. Rule out possible unstable angina. 2. Gastroesophageal reflux disease. 3. Hyponatremia. 4. Increased creatinine with chronic kidney stage 3. 5. History of hypertension. 6. Hyperlipidemia. 7. History of degenerative joint disease. 8. History of prostate disorder. 9. History of left renal cancer with nephrectomy. 10.History of cardiac catheterization. 11.History of depression. DISCHARGE DISPOSITION: The patient will be discharged in stable condition with guarded prognosis. HISTORY OF PRESENT ILLNESS: This 80-year-old gentleman with a past medical history of multiple medical problems admitted with chest pain, abdominal pain. Patient . Cardiology saw the patient. Medical management is recommended. The patient also has significant renal disease. Recommend close outpatient followup. On exam, vitals signs stable. Cardiovascular system: S1, S2. Abdomen soft. Nervous system: No focal deficits. DISCHARGE ADVICE AND MEDICATIONS: 1. Discharge diet is cardiac diet. 2. Activity limited until followup. 3. Follow up with [facility] and Dr. Cordova in 2-3 days. 4. Follow up with Dr. Sultana in 2 weeks. DISCHARGE MEDICATIONS: 1. Aspirin 81 mg p.o. daily. 2. Flomax 4 q.h.s. 3. Iron 320 mg p.o. daily. 4. Lidoderm patch 1 patch daily. 5. Metoprolol 25 mg p.o. b.i.d. 6. Pravachol 20 mg q.h.s. 7. Diclofenac p.r.n. 8. Imdur ER 30 mg p.o. daily. 9. Nitrostat 0.4 sublingually p.r.n. 10.Plavix 75 mg p.o. daily. 11.Protonix 40 mg p.o. daily. 12.Ranexa 500 mg p.o. b.i.d. Once again the patient discharged in stable condition with guarded prognosis. MMODL / IJN: [id number] / MTDD
== END 2021-01-09 12:31 ==
LOC: EC 10:35 → 6NMEDSUR 12:13
PROVIDERS: ADMIT Hospitalist; ATTEND Hospitalist
DX: R07.89 Other chest pain (principal); K21.9 Gastro-esophageal reflux disease without esophagitis; E87.1 Hypo-osmolality and hyponatremia; Z85.528 Personal history of other malignant neoplasm of kidney; I12.9 Hypertensive chronic kidney disease with stage 1 through stage 4 chronic kidney disease, or unspecified chronic kidney disease; N18.30 Chronic kidney disease, stage 3 unspecified; E78.5 Hyperlipidemia, unspecified; F32.9 Major depressive disorder, single episode, unspecified; M19.90 Unspecified osteoarthritis, unspecified site; N40.0 Benign prostatic hyperplasia without lower urinary tract symptoms; I25.10 Atherosclerotic heart disease of native coronary artery without angina pectoris; R00.1 Bradycardia, unspecified; F12.90 Cannabis use, unspecified, uncomplicated; C78.02 Secondary malignant neoplasm of left lung; C79.51 Secondary malignant neoplasm of bone; G89.29 Other chronic pain; M54.5 Low back pain; Z90.5 Acquired absence of kidney; Z87.891 Personal history of nicotine dependence; Z92.21 Personal history of antineoplastic chemotherapy; Z88.8 Allergy status to other drugs, medicaments and biological substances; Z88.1 Allergy status to other antibiotic agents; Z79.02 Long term (current) use of antithrombotics/antiplatelets; Z79.899 Other long term (current) drug therapy; Z79.82 Long term (current) use of aspirin; Z80.8 Family history of malignant neoplasm of other organs or systems; Z82.49 Family history of ischemic heart disease and other diseases of the circulatory system; Z80.3 Family history of malignant neoplasm of breast; Z20.822 Contact with and (suspected) exposure to COVID-19
CPT/HCPCS: 96376 ×3; 96366 ×3; 96375; 93005 ×2; 96365; 99285; 36415; 93306; 80061; 80053; 80048; 83690; 83735; 84484; 85025 ×2; 85610; 85730 ×3; 87635; 71046; G0378 ×3; J1644 ×2; C9113 ×2

== ENCOUNTER 2021-01-13 08:22 | Observation (INO) | payer OTHER ==
--- NOTE | 2021-01-13 08:59 | ED ---
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 Patient has been seen 6 days ago for similar complaint. Reports 2 pain that starts around his umbilicus and radiates up into his chest and then spans across both shoulder blades. States that the pain is sudden onset and lasts for approximately 2-3 minutes each time. He describes it as a burning sensation. No associated shortness of breath or diaphoresis. Pain usually resolves on its own without intervention. Patient was treated with reflux medications during last hospitalization and states that this has not helped his symptoms. Patient arrives and is currently asympto matic. Denies fevers. He has never had a EGD. Denies any changes in his bowel or bladder habits. No fevers. No other alleviating, precipitating or modifying factors - Related Data Home Medications Medication Instructions Recorded Confirmed Metoprolol Tartrate 25 mg PO BID 10/12/17 01/13/21 Tamsulosin HCl [Flomax] 0.4 mg PO HS 10/12/17 01/13/21 Aspirin [Adult Low Dose Aspirin EC] 81 mg PO HS 02/29/20 01/13/21 Diclofenac Sodium [Voltaren Gel] 1 applic TOPICAL BID PRN 03/26/20 01/13/21 Pravastatin Sodium [Pravachol] 20 mg PO HS 08/28/20 01/13/21 Ferrous Sulfate [Iron] 325 mg PO DAILY 01/07/21 01/13/21 Lidocaine 5% Patch [Lidoderm 5% 1 patch TOPICAL DAILY 01/07/21 01/13/21 Patch] Previous Rx's Medication Instructions Recorded Clopidogrel [Plavix] 75 mg PO DAILY #90 tab 03/02/20 Isosorbide Mononitrate ER [Imdur] 30 mg PO DAILY #90 tab.er.24h 03/02/20 Nitroglycerin Sl Tabs [Nitrostat] 0.4 mg SUBLINGUAL Q5M PRN #25 tab 03/02/20 Pantoprazole Sodium [Protonix] 40 mg PO DAILY #60 tablet. 01/09/21 Ranolazine [Ranexa] 500 mg PO Q12HR #60 tab.er.12h 01/09/21 Pantoprazole Sodium [Protonix] 40 mg PO AC-BID #60 tablet. 01/15/21 Polymyxin B-Trimeth Sulf Ophth 1 drops BOTH EYES Q4H 7 Days #1 ml 01/15/21 [Polytrim Opthalmic] Allergies Allergy/AdvReac Type Severity Reaction Status Date / Time atorvastatin calcium Allergy Unknown Verified 01/16/21 13:09 [From Lipitor] clindamycin AdvReac JOINT PAIN Verified 01/16/21 13:09 Review of Systems ROS Statement: Those systems with pertinent positive or pertinent negative responses have been documented in the HPI. ROS Other: All systems not noted in ROS Statement are negative. EKG Findings - EKG Comments: EKG Findings:: EKG demonstrates sinus rhythm with ventricular rate of 60. ID interval 176. QRS 102. QTC of 418. Biphasic T waves V2-V3. Inverted T wave in V4 through V6 Past Medical History Past Medical History: Cancer, Chest Pain / Angina, GERD/Reflux, Hyperlipidemia, Hypertension, Osteoarthritis (OA), Prostate Disorder, Renal Disease Additional Past Medical History / Comment(s): L renal cancer with nephrectomy/mets L lung and pt states spot on sternum is gone now-currently taking oral chemotherapy, chronic renal failure stage II, lower leg edema thought to be due to HTN medications, BPH, chronic low back pain, arthritis vs gout r great toe. 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 Past Anesthesia/Blood Transfusion Reactions: No Reported Reaction Past Psychological History: Depression Smoking Status: Former smoker Past Alcohol Use History: Occasional Past Drug Use History: Marijuana - Past Family History Father Family Medical History: Cancer, Hypertension, Myocardial Infarction ([place]) Additional Family Medical History / Comment(s): SKIN CANCER Mother Family Medical History: Cancer Additional Family Medical History / Comment(s): breast cancer - throat cancer Sister(s) Family Medical History: Cancer Additional Family Medical History / Comment(s): SKIN CANCER General Exam Limitations: no limitations General appearance: alert, in no apparent distress Head exam: Present: atraumatic, normocephalic, normal inspection Eye exam: Present: normal appearance, PERRL, EOMI. Absent: scleral icterus, conjunctival injection, periorbital swelling ENT exam: Present: normal exam, mucous membranes moist Neck exam: Present: normal inspection. Absent: tenderness, meningismus, lymphadenopathy Respiratory exam: Present: normal lung sounds bilaterally. Absent: respiratory distress, wheezes, rales, rhonchi, stridor Cardiovascular Exam: Present: regular rate, normal rhythm, normal heart sounds. Absent: systolic murmur, diastolic murmur, rubs, gallop, clicks GI/Abdominal exam: Present: soft, normal bowel sounds. Absent: distended, tenderness, guarding, rebound, rigid Extremities exam: Present: normal inspection, full ROM, normal capillary refill. Absent: tenderness, pedal edema, joint swelling, calf tenderness Back exam: Present: normal inspection Neurological exam: Present: alert, oriented X3, CN II-XII intact Psychiatric exam: Present: normal affect, normal mood Skin exam: Present: warm, dry, intact, normal color. Absent: rash Course Vital Signs 01/13/21 01/13/21 01/13/21 08:26 08:53 10:47 Temperature 98 F Pulse Rate 69 56 L Respiratory 18 16 18 Rate Blood Pressure 114/71 139/74 O2 Sat by Pulse 99 98 Oximetry 01/13/21 01/13/21 01/13/21 11:53 16:03 18:00 Temperature 98.0 F 97.6 F 98.2 F Pulse Rate 56 L 82 62 Respiratory 18 18 18 Rate Blood Pressure 135/73 120/77 125/79 O2 Sat by Pulse 99 97 96 Oximetry Chest Pain MDM - MDM Upon arrival patient is placed into room 9. Thorough history and physical exam was performed. IV is established. Patient is currently pain-free at this time. Did recommend repeating laboratory studies. Laboratory studies are reviewed and demonstrated an elevated troponin of 0.048. Creatinine is 2.1 which is at the patient's baseline from last draw. Chest x-rays performed which demonstrates no acute process. Patient remains pain free in the emergency department. He was given an aspirin for his elevated troponin. I did recommend hospital admission for which the patient did agree to. Spoke with [facility] who accepted admission. I will consult cardiology. Patient remained in stable condition awaiting a bed Disposition Clinical Impression: Chest pain, Acute non-ST elevation myocardial infarction (NSTEMI) Disposition: ADMITTED IP TO THIS HOSP Condition: Stable Is patient prescribed a controlled substance at d/c from ED?: No Decision to Admit Reason: Admit from EC Decision Date: 01/13/21 Decision Time: 10:37
[2021-01-13 09:18] LABS: Basophils % (A) 1 %; Eosinophils # (A) 0.4 k/uL (0-0.7); Eosinophils % (A) 7 %; HCT 35.6 % (39.0-53.0); HGB 12.6 gm/dL (13.0-17.5); Lymphocytes # (A) 1.3 k/uL (1.0-4.8); Lymphocytes % (A) 25 %; MCH 30.9 pg (25.0-35.0); MCHC 35.3 g/dL (31.0-37.0); MCV 87.6 fL (80.0-100.0); Mean Platelet Volume 8.4; Monocytes # (A) 0.5 k/uL (0-1.0); Monocytes % (A) 10 %; Neutrophils # (A) 2.9 k/uL (1.3-7.7); Neutrophils % (A) 56 %; Platelet Count 214 k/uL (150-450); RBC 4.06 m/uL (4.30-5.90); RDW 13.2 % (11.5-15.5); WBC 5.2 k/uL (3.8-10.6)
--- NOTE | 2021-01-13 09:25 | XR ---
EXAMINATION TYPE: XR chest 2V DATE OF EXAM: 01/13/2021 COMPARISON: Chest x-ray 6 days ago. HISTORY: Chest pain. TECHNIQUE: Frontal and lateral views of the chest are obtained. FINDINGS: There is chronic emphysematous and parenchymal changes bilaterally without suspicious new focal air space opacity, pleural effusion, or pneumothorax seen. The cardiac silhouette size remains within normal limits. Overlying EKG leads are demonstrated. The osseous structures are intact. Surg ical clips epigastric region redemonstrated. IMPRESSION: No acute process . No significant change from prior.
[2021-01-13 09:29] LABS: D-Dimer 0.31 mg/L FEU (<0.60); INR 0.9 (<1.2); Partial Thromboplastin Time 23.8 sec (22.0-30.0); Prothrombin Time 10.1 sec (9.0-12.0)
[2021-01-13 09:41] LABS: Albumin 3.5 g/dL (3.5-5.0); Calcium 9.8 mg/dL (8.4-10.2); Potassium 4.1 mmol/L (3.5-5.1); Total Bilirubin 0.6 mg/dL (0.2-1.3); Total Protein 6.1 g/dL (6.3-8.2)
[2021-01-13] MEDS ORDERED: ASPIRIN 81 MG PO STA (10:38)
[2021-01-13] MEDS ORDERED: NALOXONE 0.4 MG/ML 1 ML VIAL IV PRN (10:39)
--- NOTE | 2021-01-13 12:25 | US ---
EXAMINATION TYPE: US gallbladder DATE OF EXAM: 01/13/2021 COMPARISON: NONE CLINICAL HISTORY: gall bladder disease. chest pain, reflux EXAM MEASUREMENTS: Liver Length: 14.1 cm Gallbladder Wall: 0.1 cm CBD: 0.5 cm Right Kidney: 9.7 x 4.5 x 4.9 cm Pancreas: not seen due to bowel gas Liver: intercostal imaging due to bowel gas appears wnl Gallbladder: wnl Evidence for sonographic Schaeffer's sign: no CBD: wnl Right Kidney: 3.7cm inferior pole cyst IMPRESSION: 1. Simple right renal cyst.
[2021-01-13] MEDS ORDERED: NITROGLYCERIN SL TABS 0.4 MG TAB SUBLINGUAL PRN (12:34)
--- NOTE | 2021-01-13 12:51 | P.HPIM ---
History of Present Illness 80-year-old male came in with complaints of area medical abdominal pain radiating to the retrosternal area burning sensation mostly associated with food. Patient the pain is severe. Patient does have history of renal cell carcinoma metastatic and came on chemotherapy. Patient was recently hospitalized earlier this month was subsequently discharged after evaluation by gastroenterology and patient was believed to have peptic ulcer disease or gastroesophageal reflux disease and was subsequently discharged on Protonix. She does have chronic kidney disease stage IV with a baseline creatinine around 1.5. Patient is presently around 2. Patient has mildly elevated troponin of 0.048, patient is being admitted for a cardiology evaluation. Review of Systems REVIEW OF SYSTEMS: CONSTITUTIONAL: No fever, no malaise, no fatigue. HEENT: No recent visual problems or hearing problems. Denied any sore throat. CARDIOVASCULAR: No orthopnea, PND, no palpitations, no syncope. PULMONARY: No shortness of breath, no cough, no hemoptysis. GASTROINTESTINAL: No diarrhea. NEUROLOGICAL: No headaches, no weakness, no numbness. HEMATOLOGICAL: Denies any bleeding or petechiae. GENITOURINARY: Denies any burning micturition, frequency, or urgency. MUSCULOSKELETAL/RHEUMATOLOGICAL: Denies any joint pain, swelling, or any muscle pain. ENDOCRINE: Denies any polyuria or polydipsia. The rest of the 14-point review of systems is negative. Past Medical History Past Medical History: Cancer, Chest Pain / Angina, GERD/Reflux, Hyperlipidemia, Hypertension, Osteoarthritis (OA), Prostate Disorder, Renal Disease Additional Past Medical History / Comment(s): L renal cancer with nephrectomy/mets L lung and pt states spot on sternum is gone now-currently taking oral chemotherapy, chronic renal failure stage II, lower leg edema thought to be due to HTN medications, BPH, chronic low back pain, arthritis vs gout r great toe. 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 Past Anesthesia/Blood Transfusion Reactions: No Reported Reaction Past Psychological History: Depression Smoking Status: Former smoker Past Alcohol Use History: Occasional Past Drug Use History: Marijuana - Past Family History Father Family Medical History: Cancer, Hypertension, Myocardial Infarction ([place]) Additional Family Medical History / Comment(s): SKIN CANCER Mother Family Medical History: Cancer Additional Family Medical History / Comment(s): breast cancer - throat cancer Sister(s) Family Medical History: Cancer Additional Family Medical History / Comment(s): SKIN CANCER Medications and Allergies Home Medications Medication Instructions Recorded Confirmed Type Metoprolol Tartrate 25 mg PO BID 10/12/17 01/13/21 History Tamsulosin HCl [Flomax] 0.4 mg PO HS 10/12/17 01/13/21 History Aspirin [Adult Low Dose Aspirin EC] 81 mg PO HS 02/29/20 01/13/21 History Clopidogrel [Plavix] 75 mg PO DAILY #90 tab 03/02/20 01/13/21 Rx Isosorbide Mononitrate ER [Imdur] 30 mg PO DAILY #90 tab.er.24h 03/02/20 01/13/21 Rx Nitroglycerin Sl Tabs [Nitrostat] 0.4 mg SUBLINGUAL Q5M PRN #25 tab 03/02/20 01/13/21 Rx Diclofenac Sodium [Voltaren Gel] 1 applic TOPICAL BID PRN 03/26/20 01/13/21 History Pravastatin Sodium [Pravachol] 20 mg PO HS 08/28/20 01/13/21 History Ferrous Sulfate [Iron] 325 mg PO DAILY 01/07/21 01/13/21 History Lidocaine 5% Patch [Lidoderm 5% 1 patch TOPICAL DAILY 01/07/21 01/13/21 History Patch] Pantoprazole Sodium [Protonix] 40 mg PO DAILY #60 tablet. 01/09/21 01/13/21 Rx Ranolazine [Ranexa] 500 mg PO Q12HR #60 tab.er.12h 01/09/21 01/13/21 Rx Allergies Allergy/AdvReac Type Severity Reaction Status Date / Time atorvastatin calcium Allergy Unknown Verified 01/13/21 11:10 [From Lipitor] clindamycin AdvReac JOINT PAIN Verified 01/13/21 11:10 Physical Exam Vitals: Vital Signs Temp Pulse Resp BP Pulse Ox 01/13/21 11:53 98.0 F 56 L 18 135/73 99 01/13/21 10:47 56 L 18 139/74 98 01/13/21 08:53 16 01/13/21 08:26 98 F 69 18 114/71 99 Intake and Output 01/12/21 01/13/21 01/13/21 22:59 06:59 14:59 Other: Weight 58.967 kg PHYSICAL EXAMINATION: GENERAL: The patient is alert and oriented x3, not in any acute distress. Well developed, well nourished. HEENT: Pupils are round and equally reacting to light. EOMI. No scleral icterus. No conjunctival pallor. Normocephalic, atraumatic. No pharyngeal erythema. No thyromegaly. CARDIOVASCULAR: S1 and S2 present. No murmurs, rubs, or gallops. PULMONARY: Chest is clear to auscultation, no wheezing or crackles. ABDOMEN: Soft, nontender, nondistended, normoactive bowel sounds. No palpable organomegaly. MUSCULOSKELETAL: No joint swelling or deformity. EXTREMITIES: No cyanosis, clubbing, or pedal edema. NEUROLOGICAL: Gross neurological examination did not reveal any focal deficits. SKIN: No rashes. Results CBC & Chem 7: 01/13/21 08:56 01/13/21 08:56 Labs: Abnormal Lab Results - Last 24 Hours (Table) 01/13/21 01/13/21 01/13/21 Range/Units 08:56 08:56 08:56 RBC 4.06 L (4.30-5.90) m/uL Hgb 12.6 L (13.0-17.5) gm/dL Hct 35.6 L (39.0-53.0) % Sodium 136 L (137-145) mmol/L Chloride 108 H (98-107) mmol/L Carbon Dioxide 21 L (22-30) mmol/L BUN 34 H (9-20) mg/dL Creatinine 2.11 H (0.66-1.25) mg/dL Troponin I 0.048 H* (0.000-0.034) ng/mL Total Protein 6.1 L (6.3-8.2) g/dL Assessment and Plan Plan: -Midabdominal pain: Probably secondary to mucositis or peptic ulcer disease patient will be started on Protonix gastroneurology will be consulted for possibly of upper GI endoscopy patient is being admitted to rule out acute coronary syndromes. Patient pain doesn't appear to be cardiac in origin. Patient was recently valid by cardiology no further testing was recommended at that time patient had a recent cardiac catheterization as well patient is already in dual antiplatelet therapy and Ranexa. Ultrasound of the gallbladder was obtained which did not show any gallbladder disease and there is some simple renal cyst. Renal cell cancer receiving chemotherapy -Gastro-esophageal reflux disease Hyperlipidemia Hypertension -Benign prostatic hypertrophy
[2021-01-13] MEDS: SODIUM CHLORIDE 0.9% 1,000 ML IV SCH (13:27)
--- NOTE | 2021-01-13 15:22 | CONS ---
CONSULTATION DATE OF DICTATION: 01/13/2021 REASON FOR CONSULTATION: Epigastric pain, chest pain and heartburn. HISTORY OF PRESENT ILLNESS: The patient is a 80-year-old pleasant white male with history of hypertension, hyperlipidemia, history of renal cell carcinoma diagnosed a year ago, status post surgery, presently on some IV chemotherapy, who presented to the emergency room with severe epigastric pain radiating to the chest and arms for the last one month's duration. Symptoms usually happen with eating and usually last for 1 or 2 hours after he eats. He denies any nausea, vomiting. He was seen by his PCP and was started on Protonix 40 mg daily, but he has no significant improvement in his symptoms. Hence he came to the emergency room and subsequently is being admitted to the hospital for further evaluation. He was noted to have mild elevation of troponin. Cardiology has been consulted. He denies any recent NSAID use. No prior history of peptic ulcer disease. He never had an EGD in the past. PAST MEDICAL HISTORY: Significant for renal cell carcinoma diagnosed a year ago with metastases to the bone, history of GERD, hypertension, hyperlipidemia, degenerative joint disease and chronic kidney disease. PAST SURGICAL HISTORY: Nephrectomy for left renal cell cancer, history of cardiac catheterization 3 months ago. MEDICATIONS: Medications at home include metoprolol, Flomax, aspirin, Plavix, Isordil, nitroglycerin, Voltaren gel, pravastatin, Protonix and Ranexa. ALLERGIES: LIPITOR and CLINDAMYCIN. SOCIAL HISTORY: Former smoker. No alcohol use. FAMILY HISTORY: Father had hypertension, coronary artery disease and skin cancer. Mother had breast cancer and throat cancer. REVIEW OF SYSTEMS: CARDIOPULMONARY: He does complain of some chest pain but no shortness of breath. GENITOURINARY: No dysuria or hematuria. MUSCULOSKELETAL: Unremarkable. SKIN: Unremarkable. ENDOCRINE: Unremarkable. PSYCHIATRIC: Unremarkable. NEUROLOGY: Unremarkable. ENT/VISION: Unremarkable. CONSTITUTIONAL: No recent weight loss. No fever, chills, night sweats. PHYSICAL EXAMINATION: He appears comfortable. No apparent distress. VITAL SIGNS: Stable. Blood pressure is 133/82, pulse rate 56, temperature 98. HEENT examination unremarkable. Conjunctivae pink. Sclerae anicteric. Oral cavity no lesions. NECK: No JVD or lymph node enlargement. CHEST: Clear to auscultation. HEART: Regular rate and rhythm. ABDOMEN: Soft. Bowel sounds are positive. No organomegaly. EXTREMITIES: No pedal edema. SKIN: No rashes. NEUROLOGIC: Alert and oriented x3. No focal deficits. LABS: Labs from today show WBC 5.2, hemoglobin 12.6, platelets normal. Basic metabolic panel is within normal limits. BUN 34, creatinine 2.1. Troponin is 0.071. Amylase and lipase are normal. COVID PCR is negative. IMPRESSION: 1. This is a patient who presents with epigastric pain, chest pain, heartburn for the last one month's duration. Symptoms almost daily, associated with food intake. Ultrasound of the gallbladder did not show any evidence of gallstones. Most likely we are dealing with gastroesophageal reflux disease, but possibility of peptic ulcer disease also needs to be excluded. He is presently on Protonix 40 mg daily on an outpatient basis, with no improvement in his symptoms. 2. Mildly elevated troponin levels. Cardiology has been consulted. 3. History of renal cell cancer diagnosed a year ago, status post surgery, currently on IV chemo infusions once a month and follows with Dr. Mcneal. 4. History of hypertension and hyperlipidemia. RECOMMENDATIONS: 1. Start him on Protonix 40 mg q.12 hours. 2. Clear liquid diet. 3. Await cardiology evaluation. 4. Will proceed with an upper endoscopy tomorrow if okay with Cardiology. 5. Will follow with you closely. Thank you for this consultation. MMODL / IJN: [id number] /
[2021-01-13] MEDS: PRAVASTATIN SODIUM 20 MG TAB PO SCH (20:30)
[2021-01-13] MEDS: METOPROLOL TARTRATE 25 MG TAB PO SCH (20:30)
[2021-01-13] MEDS: PANTOPRAZOLE 40 MG/10 ML VIAL IVP SCH (20:31)
[2021-01-13] MEDS: TAMSULOSIN 0.4 MG CAP.ER.24H PO SCH (20:31)
[2021-01-13] MEDS: RANOLAZINE 500 MG TAB.ER.12H PO SCH (20:31)
[2021-01-14] MEDS: SODIUM CHLORIDE 0.9% 1,000 ML IV SCH ×2 (05:41→09:03)
[2021-01-14] MEDS: ISOSORBIDE MONONITRATE ER 30 MG TAB.ER.24H PO SCH (08:39)
[2021-01-14] MEDS: FERROUS SULFATE 325 MG TAB PO SCH (08:39)
[2021-01-14] MEDS: RANOLAZINE 500 MG TAB.ER.12H PO SCH ×2 (08:39→19:40)
[2021-01-14] MEDS: METOPROLOL TARTRATE 25 MG TAB PO SCH ×2 (08:39→19:40)
[2021-01-14] MEDS ORDERED: CLOPIDOGREL 75 MG TAB PO SCH (09:00)
[2021-01-14] MEDS: LIDOCAINE 5% PATCH TOPICAL SCH (09:02)
[2021-01-14] MEDS: PANTOPRAZOLE 40 MG/10 ML VIAL IVP SCH ×2 (09:03→19:40)
[2021-01-14 10:01] LABS: Basophils # (A) 0.1 k/uL (0-0.2); Basophils % (A) 1 %; Eosinophils # (A) 0.3 k/uL (0-0.7); Eosinophils % (A) 6 %; HCT 36.4 % (39.0-53.0); HGB 12.7 gm/dL (13.0-17.5); Lymphocytes # (A) 1.5 k/uL (1.0-4.8); Lymphocytes % (A) 31 %; MCH 31.1 pg (25.0-35.0); MCHC 34.9 g/dL (31.0-37.0); MCV 89.1 fL (80.0-100.0); Mean Platelet Volume 8.6; Monocytes # (A) 0.5 k/uL (0-1.0); Monocytes % (A) 10 %; Neutrophils # (A) 2.5 k/uL (1.3-7.7); Neutrophils % (A) 51 %; Platelet Count 217 k/uL (150-450); RBC 4.09 m/uL (4.30-5.90); RDW 13.2 % (11.5-15.5); WBC 4.8 k/uL (3.8-10.6)
[2021-01-14 10:29] LABS: Potassium 4.1 mmol/L (3.5-5.1)
[2021-01-14 10:30] LABS: Calcium 9.3 mg/dL (8.4-10.2)
[2021-01-14] MEDS ORDERED: CAFFEINE CITRATE 60 MG/3 ML VIAL IV PRN (10:42)
[2021-01-14] MEDS ORDERED: REGADENOSON 0.4 MG/5 ML SYRINGE IV PRN (10:42)
[2021-01-14] MEDS ORDERED: AMINOPHYLLINE 500 MG/20 ML VIAL IV PRN (10:42)
--- NOTE | 2021-01-14 11:49 | P.CRDCN ---
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 Mcneal. The follows in the office with Dr. Sultana. We have been asked to see in consultation for chest pain. Troponins 0.04/-->0.071-->0.066. Pain states pain started Yesterday 6:00pm. Patient had 4-6 episodes of burning abd ominal/epigastric pain. He states this pain was excruciating,. This is more frequent for the patient. Patient states yesterday he went out with his friend and had Fried mushrooms. Then he went home and for dinner had a plate of spaghetti. Pain is burning. It starts in his belly and radiates up to epigastric region. Patient also states he felt dehydrated. Denies shortness of breath, palpitations, chest discomfort, syncope, lightheadedness, nausea, vomiting, or diarrhea. Patient was recently admitted on 01/07/21 with complaints of chest pain. This chest pain was resolved in atypical epigastric pain are likely related to GI source. His troponins were negative 3. At that time patient did have new T wave inversions in the anterior lateral leads. Ranexa was started. Protonix was also started. Echocardiogram was performed and showed an ejection fraction of 50-55% with no wall motion abnormalities, mild MR, moderate pulmonic regurgitation mild to moderate AI, mild TR. At that time patient is not a candidate for coronary angiography, due to renal function. We recommend to treat the patient medically at this time. In patient was discharged home stable to follow up with cardiology in one week. 02/2020:He underwent cardiac catheterization secondary to mild troponin elevation revealing 20-30% plaque of the proximal LAD, an area of stenosis at the takeoff of the second diagonal branch 40-50%, OM branch of the circumflex with a 20-30% plaque in mid intimal disease of the RCA 20%. DIAGNOSTICS EKG reveals sinus rhythm heart rate 60, T wave inversions in anterior lateral leads. EKG on 01/08/21 with similar findings Telemetry tracings sinus mechanism Chest xray negative for an acute cardiopulmonary process. Laboratory reviewed, sodium 136, serum creatinine 2.11, BUN 34, magnesium 2.0, BNP 659, covid-19 negative US Revealed simple right renal cyst Current cardiac medications include Ranexa 500 mg twice a day, aspirin 81 mg daily, Plavix 75 mg daily, Imdur 30 mg daily, metoprolol 25 mg twice a day and pravastatin 20 mg. REVIEW OF SYSTEMS At the time of my exam: CONSTITUTIONAL: Denies fever or chills. CARDIOVASCULAR: Denies chest pain,Denies shortness of breath, orthopnea, PND or palpitations. RESPIRATORY: Denies cough. GASTROINTESTINAL: +Burning epigastric and upper abdominal pain Denies diarrhea, constipation, nausea or vomiting. MUSCULOSKELETAL: Denies myalgias. NEUROLOGIC: Denies numbness, tingling or weakness. ENDOCRINE: Denies fatigue, weight change, polydipsia or polyurina. GENITOURINARY: Denies burning, hematuria or urgency with micturation. HEMATOLOGIC: Denies history of anemia or bleeding. PHYSICAL EXAMINATION Blood pressure 149/78 heart rate 72 afebrile and maintaining oxygen saturation on room air. CONSTITUTIONAL: No apparent distress. HEENT: Head is normocephalic. Pupils are equal, round. Sclerae anicteric. Mucous membranes of the mouth are moist. No JVD. No carotid bruit. CHEST EXAMINATION: Lungs are clear to auscultation. No chest wall tenderness is noted on palpation or with deep breathing. HEART EXAMINATION: Regular rate and rhythm. S1, S2 heard., gallops or rub. ABDOMEN: Soft, nontender. Positive bowel sounds. EXTREMITIES: 2+ peripheral pulses, no lower extremity edema and no calf tenderness. NEUROLOGIC EXAMINATION: Patient is awake, alert and oriented x3. ASSESSMENT Chest pain, atypical, pain appears to be more GI related Elevated troponin, not indicative of acute coronary syndrome at this time. Possibly related to patient's [place]. Hypertension Acute on Chronic kidney disease s/p left nephrectomy - currently on IVF Renal carcinoma Dyslipidemia Former nicotine dependence PLAN From cardiology perspective, pain is atypical, however do to elevated troponin, we will perrform a Lexiscan Stress test GI following for possible EGD If Lexiscan stress test with no evidence of reversible ischemia, ok to proceed with EGD from cardiology perspective Further recommendations based on clinical course Nurse Practitioner note has been reviewed, I agree with a documented findings and plan of care. Patient was seen and examined. Past Medical History Past Medical History: Cancer, Chest Pain / Angina, GERD/Reflux, Hyperlipidemia, Hypertension, Osteoarthritis (OA), Prostate Disorder, Renal Disease Additional Past Medical History / Comment(s): L renal cancer with nephrectomy/mets L lung and pt states spot on sternum is gone now-currently taking oral chemotherapy, chronic renal failure stage II, lower leg edema thought to be due to HTN medications, BPH, chronic low back pain, arthritis vs gout r great toe. History of Any Multi-Drug Resistant Organisms: None Reported Past Surgical History: Heart Catheterization, Orthopedic Surgery Additional Past Surgical History / Comment(s): Left nephrectomy 2015, RT HAND 2ND DIGIT LOST TOP OF FINGER IN CRUSHING INJURY, colonoscopy, 2 normal cardiac caths. Past Anesthesia/Blood Transfusion Reactions: No Reported Reaction Past Psychological History: Depression Smoking Status: Former smoker Past Alcohol Use History: Occasional Past Drug Use History: Marijuana - Past Family History Father Family Medical History: Cancer, Hypertension, Myocardial Infarction ([place]) Additional Family Medical History / Comment(s): SKIN CANCER Mother Family Medical History: Cancer Additional Family Medical History / Comment(s): breast cancer - throat cancer Sister(s) Family Medical History: Cancer Additional Family Medical History / Comment(s): SKIN CANCER Medications and Allergies Home Medications Medication Instructions Recorded Confirmed Type Metoprolol Tartrate 25 mg PO BID 10/12/17 01/13/21 History Tamsulosin HCl [Flomax] 0.4 mg PO HS 10/12/17 01/13/21 History Aspirin [Adult Low Dose Aspirin EC] 81 mg PO HS 02/29/20 01/13/21 History Clopidogrel [Plavix] 75 mg PO DAILY #90 tab 03/02/20 01/13/21 Rx Isosorbide Mononitrate ER [Imdur] 30 mg PO DAILY #90 tab.er.24h 03/02/20 01/13/21 Rx Nitroglycerin Sl Tabs [Nitrostat] 0.4 mg SUBLINGUAL Q5M PRN #25 tab 03/02/20 01/13/21 Rx Diclofenac Sodium [Voltaren Gel] 1 applic TOPICAL BID PRN 03/26/20 01/13/21 History Pravastatin Sodium [Pravachol] 20 mg PO HS 08/28/20 01/13/21 History Ferrous Sulfate [Iron] 325 mg PO DAILY 01/07/21 01/13/21 History Lidocaine 5% Patch [Lidoderm 5% 1 patch TOPICAL DAILY 01/07/21 01/13/21 History Patch] Pantoprazole Sodium [Protonix] 40 mg PO DAILY #60 tablet.dr 01/09/21 01/13/21 Rx Ranolazine [Ranexa] 500 mg PO Q12HR #60 tab.er.12h 01/09/21 01/13/21 Rx Allergies Allergy/AdvReac Type Severity Reaction Status Date / Time atorvastatin calcium Allergy Unknown Verified 01/13/21 11:10 [From Lipitor] clindamycin AdvReac JOINT PAIN Verified 01/13/21 11:10 Physical Exam Vitals: Vital Signs Temp Pulse Resp BP Pulse Ox 01/13/21 16:03 97.6 F 82 18 120/77 97 01/13/21 11:53 98.0 F 56 L 18 135/73 99 01/13/21 10:47 56 L 18 139/74 98 01/13/21 08:53 16 01/13/21 08:26 98 F 69 18 114/71 99 Intake and Output 01/13/21 01/13/21 01/13/21 06:59 14:59 22:59 Other: Weight 58.967 kg Results 01/14/21 09:13 01/14/21 09:13 Cardiac Enzymes 01/13/21 01/13/21 01/13/21 Range/Units 08:56 08:56 11:53 AST 21 (17-59) U/L Troponin I 0.048 H* 0.071 H* (0.000-0.034) ng/mL 01/13/21 Range/Units 15:15 AST (17-59) U/L Troponin I 0.066 H* (0.000-0.034) ng/mL Coagulation 01/13/21 Range/Units 08:56 PT 10.1 (9.0-12.0) sec APTT 23.8 (22.0-30.0) sec CBC 01/13/21 Range/Units 08:56 WBC 5.2 (3.8-10.6) k/uL RBC 4.06 L (4.30-5.90) m/uL Hgb 12.6 L (13.0-17.5) gm/dL Hct 35.6 L (39.0-53.0) % Plt Count 214 (150-450) k/uL Comprehensive Metabolic Panel 01/13/21 Range/Units 08:56 Sodium 136 L (137-145) mmol/L Potassium 4.1 (3.5-5.1) mmol/L Chloride 108 H (98-107) mmol/L Carbon Dioxide 21 L (22-30) mmol/L BUN 34 H (9-20) mg/dL Creatinine 2.11 H (0.66-1.25) mg/dL Glucose 93 (74-99) mg/dL Calcium 9.8 (8.4-10.2) mg/dL AST 21 (17-59) U/L ALT 12 (4-49) U/L Alkaline Phosphatase 68 (38-126) U/L Total Protein 6.1 L (6.3-8.2) g/dL Albumin 3.5 (3.5-5.0) g/dL Current Medications Generic Name Dose Route Start Last Admin Trade Name Freq PRN Reason Stop Dose Admin Clopidogrel Bisulfate 75 mg 01/14/21 09:00 Clopidogrel 75 Mg Tab PO DAILY [facility] Ferrous Sulfate 325 mg 01/14/21 09:00 Ferrous Sulfate 325 Mg Tab PO DAILY [facility] Sodium Chloride 1,000 mls @ 75 mls/hr 01/13/21 13:00 01/13/21 13:27 Saline 0.9% IV 75 mls/hr .[id number] JAY JAY Administration Isosorbide Mononitrate 30 mg 01/14/21 09:00 Isosorbide Mononitrate Er 30 Mg Tab.Er.24h PO DAILY [facility] Lidocaine 1 patch 01/14/21 09:00 Lidocaine 5% Patch TOPICAL DAILY [facility] Metoprolol Tartrate 25 mg 01/13/21 21:00 Metoprolol Tartrate 25 Mg Tab PO BID [facility] Naloxone HCl 0.2 mg 01/13/21 10:39 Naloxone 0.4 Mg/Ml 1 Ml Vial IV Q2M PRN Opioid Reversal Nitroglycerin 0.4 mg 01/13/21 12:34 Nitroglycerin Sl Tabs 0.4 Mg Tab SUBLINGUAL Q5M PRN Chest Pain Pantoprazole Sodium 40 mg 01/13/21 21:00 Pantoprazole 40 Mg/10 Ml Vial IVP BID [facility] Pravastatin Sodium 20 mg 01/13/21 21:00 Pravastatin Sodium 20 Mg Tab PO HS [facility] Ranolazine 500 mg 01/13/21 21:00 Ranolazine 500 Mg Tab.Er.12h PO Q12HR JAY JAY Tamsulosin HCl 0.4 mg 01/13/21 21:00 Tamsulosin 0.4 Mg Cap.Er.24h PO HS JAY JAY Intake and Output 01/13/21 01/13/21 01/13/21 06:59 14:59 22:59 Other: Weight 58.967 kg Patient Weight 01/14/21 06:59 Weight 58.967 kg 01/13/21 08:56 01/13/21 08:56
--- NOTE | 2021-01-14 13:37 | EST ---
EXERCISE STRESS AGE: 80 SEX: Male HT: 5'7" WT: 76 pounds PROTOCOL: Lexiscan Cardiolite STAGE: DURATION OF EXERCISE: HEART RATE REST: 59. BLOOD PRESSURE REST: 146/87 MAXIMUM HEART RATE ACHIEVED: 101 MAXIMUM BLOOD PRESSURE: 177/98 85% MPHR: 129 100% MPHR: 141 METS: INDICATIONS: Chest pain. CLINICAL INFORMATION: Baseline rhythm is sinus mechanism, rate 59, normal axis and intervals, nonspecific ST- T wave changes. Baseline blood pressure 146/87 mmHg. Patient received injection of Lexiscan. Electrocardiograph monitoring revealed no evidence of diagnostic ischemic ST deviation. Cardiolite was injected per protocol. CONCLUSION: 1. Nondiagnostic electrocardiograph stress testing. 2. Nuclear images will be reported separately. MMODL / IJN: [id number] /
--- NOTE | 2021-01-14 14:29 | NM ---
EXAMINATION TYPE: NM stress lexiscan cardiolite DATE OF EXAM: 01/14/2021 COMPARISON: NONE HISTORY: chest pain TECHNIQUE: After the intravenous administration of 10.3 mCi Tc 99m Sestamibi - Cardiolite resting SP ECT images acquired 45 minutes post injection. The patient received 0.4mg Lexiscan, 25.1 mCi Tc 99m Sestamibi - Stress images obtained [address] injection FINDINGS: Review of stress and rest SPECT images demonstrates no distinct perfusion abnormality. Gated analysi s shows normal wall motion with an estimated left ventricular ejection fraction of 55 %. IMPRESSION: No scintigraphic evidence for reversible ischemia.
--- NOTE | 2021-01-14 15:36 | P.PN ---
Subjective Progress Note Date: 01/14/21 Principal diagnosis: Chest pain, epigastric pain This is a pleasant 80-year-old white male with a history of hypertension hyperlipidemia history of chronic renal cell carcinoma diagnosed a year ago status post surgery, with a history of coronary artery disease presently on IV chemotherapy who presented to the emergency room with severe epigastric pain/chest pain the last 1 month's duration. He was recently admitted to the hospital on 01/07/2021 for chest pain. He states symptomatically symptoms began after eating and usually last for 1-2 hours, he states the pain starts in his mid abdomen and radiates up to his chest. He denies any nausea or vomiting. He was recently started on Protonix 40 mg daily. Patient was noted to have mild elevation in troponins and cardiology is on consult, today underwent a Lexiscan stress test which is pending at this time. Symptoms have improved some today. No evidence of coffee-ground emesis, black tarry stools, nausea or vomiting. Objective - Vital Signs Vital signs: Vital Signs Temp 98.1 F 01/14/21 08:57 Pulse 72 01/14/21 08:57 Resp 16 01/14/21 08:57 BP 149/78 01/14/21 08:57 Pulse Ox 97 01/14/21 08:57 Intake & Output 01/13/21 01/14/21 01/14/21 18:59 06:59 18:59 Intake Total 525 0 Balance 525 0 Weight 58.967 kg 34.5 kg 56.11 kg Intake: Intake, IV Titration 525 Amount Sodium Chloride 0.9% 1, 525 000 ml @ 75 mls/hr IV . [id number] [facility] Rx#:[id number] Oral 0 Other: Voiding Method Toilet Bedside Commode - Exam General appearance: The patient is alert, oriented, appears in no acute distress. HET: Head is normocephalic and atraumatic. Conjunctiva pink. Sclera anicteric. Neck: Supple without lymphadenopathy. Abdomen: Soft, epigastric tenderness, nondistended with bowel sounds. No guarding or rigidity. Extremities: Normal skin color and turgor. No pedal edema Skin: No rashes, no jaundice Neurological: No focal deficits. Alert and oriented 3. - Labs CBC & Chem 7: 01/14/21 09:13 01/14/21 09:13 Labs: Abnormal Lab Results - Last 24 Hours (Table) 01/13/21 01/14/21 01/14/21 Range/Units 15:15 09:13 09:13 RBC 4.09 L (4.30-5.90) m/uL Hgb 12.7 L (13.0-17.5) gm/dL Hct 36.4 L (39.0-53.0) % Chloride 110 H (98-107) mmol/L BUN 25 H (9-20) mg/dL Creatinine 1.84 H (0.66-1.25) mg/dL Troponin I 0.066 H* (0.000-0.034) ng/mL Assessment and Plan (1) Epigastric abdominal pain Narrative/Plan: This is a patient who presented to the emergency department with epigastric pain, chest pain, heartburn for the last 1 month's duration. Symptoms almost daily associated with food intake lasting 1-2 hours. Ultrasound of the gallbladder did not show any evidence of gallstones. Most likely dealing with gastroesophageal reflux disease but possibility of peptic ulcer disease also needs be excluded. He's presently on Protonix 40 mg as an outpatient with no improvement in his symptoms. Plan is for upper endoscopy once cleared by cardiology. Current Visit: Yes Status: Acute Code(s): R10.13 - EPIGASTRIC PAIN SNOMED Code(s): 87268789 (2) Chest pain Narrative/Plan: Patient admitted with chest pain with mildly elevated troponin levels. Cardiology is following, patient had Lexiscan stress test done today, results pending. Current Visit: Yes Status: Acute Code(s): R07.9 - CHEST PAIN, UNSPECIFIED SNOMED Code(s): 83837750 (3) GERD (gastroesophageal reflux disease) Current Visit: No Status: Acute Code(s): K21.9 - GASTRO-ESOPHAGEAL REFLUX DISEASE WITHOUT ESOPHAGITIS SNOMED Code(s): 665782934 (4) History of renal cell cancer Narrative/Plan: Currently chemotherapy Current Visit: Yes Status: Acute Code(s): Z85.528 - PERSONAL HISTORY OF OTHER MALIGNANT NEOPLASM OF KIDNEY SNOMED Code(s): 301720500 Plan: 1. Protonix 40 mg twice a day 2. Patient may have full liquid diet, nothing by mouth after midnight 3. Await cardiology recommendation and clearance to proceed with upper endoscopy 4. Tentative plan for upper endoscopy tomorrow Thank You for this consultation, we will continue to follow closely Dr. Rebecca Green I agree with the dictator's note, documented as a scribe by Rayna Farrell.
--- NOTE | 2021-01-14 15:43 | P.PN ---
Subjective 80-year-old male came in with complaints of area medical abdominal pain radiating to the retrosternal area burning sensation mostly associated with food. Patient the pain is severe. Patient does have history of renal cell carcinoma metastatic and came on chemotherapy. Patient was recently hospitalized earlier this month was subsequently discharged after evaluation by gastroenterology and patient was believed to have peptic ulcer disease or g astroesophageal reflux disease and was subsequently discharged on Protonix. She does have chronic kidney disease stage IV with a baseline creatinine around 1.5. Patient is presently around 2. Patient has mildly elevated troponin of 0.048, patient is being admitted for a cardiology evaluation. 01/14/2021 Patient will undergo upper GI endoscopy tomorrow patient did undergo stress test which is negative for any inducible ischemia. Patient's creatinine did improve to 1.84, continue with IV fluids and patient's baseline appears to be around 1.5. Patient had a normal ejection fraction. Constitutional: Denied any fatigue denied any fever. Cardio vascular: denied any chest pain, palpitations Gastrointestinal denied any nausea vomiting, patient still has episodic abdominal pain Pulmonary: Denied any shortness of breath cough Neurologic denied any new focal deficits All inpatient medications were reviewed and appropriate changes in these medications as dictated in the interval history and assessment and plan. Objective - Vital Signs Vital signs: Vital Signs Temp 98.1 F 01/14/21 08:57 Pulse 72 01/14/21 14:00 Resp 16 01/14/21 14:00 BP 149/78 01/14/21 08:57 Pulse Ox 97 01/14/21 08:57 Intake & Output 01/13/21 01/14/21 01/14/21 18:59 06:59 18:59 Intake Total 525 0 Balance 525 0 Weight 58.967 kg 34.5 kg 56.11 kg Intake: Intake, IV Titration 525 Amount Sodium Chloride 0.9% 1, 525 000 ml @ 75 mls/hr IV . [id number] [facility] Rx#:[id number] Oral 0 Other: Voiding Method Toilet Bedside Commode - Exam PHYSICAL EXAMINATION: GENERAL: The patient is alert and oriented x3, not in any acute distress. Well developed, well nourished. HEENT: Pupils are round and equally reacting to light. EOMI. No scleral icterus. No conjunctival pallor. Normocephalic, atraumatic. No pharyngeal erythema. No thyromegaly. CARDIOVASCULAR: S1 and S2 present. No murmurs, rubs, or gallops. PULMONARY: Chest is clear to auscultation, no wheezing or crackles. ABDOMEN: Soft, nontender, nondistended, normoactive bowel sounds. No palpable organomegaly. MUSCULOSKELETAL: No joint swelling or deformity. EXTREMITIES: No cyanosis, clubbing, or pedal edema. NEUROLOGICAL: Gross neurological examination did not reveal any focal deficits. SKIN: No rashes. - Labs CBC & Chem 7: 01/14/21 09:13 01/14/21 09:13 Labs: Abnormal Lab Results - Last 24 Hours (Table) 01/13/21 01/14/21 01/14/21 Range/Units 15:15 09:13 09:13 RBC 4.09 L (4.30-5.90) m/uL Hgb 12.7 L (13.0-17.5) gm/dL Hct 36.4 L (39.0-53.0) % Chloride 110 H (98-107) mmol/L BUN 25 H (9-20) mg/dL Creatinine 1.84 H (0.66-1.25) mg/dL Troponin I 0.066 H* (0.000-0.034) ng/mL Assessment and Plan Plan: -Midabdominal pain: Probably secondary to mucositis or peptic ulcer disease patient will be started on Protonix gastroenterology evaluated the patient and patient will undergo upper GI endoscopy tomorrow. Patient had a stress test which was negative patient pain is noncardiac. patient is already in dual antiplatelet therapy and Ranexa. Ultrasound of the gallbladder was obtained which did not show any gallbladder disease and there is some simple renal cyst. Renal cell cancer receiving chemotherapy -Gastro-esophageal reflux disease Hyperlipidemia Hypertension -Benign prostatic hypertrophy Possibility of chest tomorrow depending on upper GI endoscopy results
[2021-01-14] MEDS: PRAVASTATIN SODIUM 20 MG TAB PO SCH (19:40)
[2021-01-14] MEDS: TAMSULOSIN 0.4 MG CAP.ER.24H PO SCH (19:40)
[2021-01-14] MEDS ORDERED: ARTIFICIAL TEARS-HYPROMELLOSE DROPS 15 ML BTL BOTH EYES PRN (19:42)
[2021-01-15] MEDS: SODIUM CHLORIDE 0.9% 1,000 ML IV SCH ×2 (06:12→12:51)
[2021-01-15 09:00] LABS: Potassium 4.7 mmol/L (3.5-5.1)
[2021-01-15 09:17] LABS: HCT 39.9 % (39.0-53.0); HGB 12.9 gm/dL (13.0-17.5); MCH 29.8 pg (25.0-35.0); MCHC 32.4 g/dL (31.0-37.0); MCV 91.9 fL (80.0-100.0); Platelet Count 241 k/uL (150-450); RBC 4.34 m/uL (4.30-5.90); WBC 6.4 k/uL (3.8-10.6)
[2021-01-15] MEDS: FERROUS SULFATE 325 MG TAB PO SCH (09:58)
[2021-01-15] MEDS: METOPROLOL TARTRATE 25 MG TAB PO SCH (09:59)
[2021-01-15] MEDS: ISOSORBIDE MONONITRATE ER 30 MG TAB.ER.24H PO SCH (09:59)
[2021-01-15] MEDS: RANOLAZINE 500 MG TAB.ER.12H PO SCH (09:59)
[2021-01-15] MEDS: LIDOCAINE 5% PATCH TOPICAL SCH (10:03)
[2021-01-15] MEDS ORDERED: IV FLUID CONTINUATION 1,000 ML IV ONE ×2 (11:25)
[2021-01-15] MEDS ORDERED: PROPOFOL 10 MG/ML 20 ML VIAL IV ONE (11:30)
--- NOTE | 2021-01-15 11:42 | P.PCN ---
Date of Procedure: 01/15/21 Procedure(s) Performed: BRIEF HISTORY: Patient is a 80-year-old, pleasant, white male scheduled for an upper endoscopy as a part of evaluation of epigastric pain and a chest pain for the last 3-4 weeks duration. He had cardiac workup done that was negative. He scheduled for an upper endoscopy to evaluate further. PROCEDURE PERFORMED: Esophagogastroduodenoscopy with biopsy. PREOPERATIVE DIAGNOSIS: Chest pain and epigastric pain of 4 months duration. IV sedation per anesthesia. PROCEDURE: After informed consent was obtained, the patient was brought into the endoscopy unit. IV sedation was administered by Anesthesia under continuous monitoring. Initially the Olympus GIF-140 video endoscope was inserted into the mouth. Esophagus intubated without any difficulty. It was gradually advanced into the stomach and duodenum and carefully examined. The bulb and the second part of the duodenum appeared normal. The scope at this time was withdrawn to the stomach, adequately insufflated with air, and upon careful examination, mucosa of the antrum, and mild gastritis and biopsies were done from this area. body, cardia and the fundus appeared normal. The scope was then withdrawn into the esophagus. The GE junction was located at 39 cm from the incisors. There was a 3 mm tongue of Gold's-appearing. proximal to the GE junction which was biopsied. The esophagus appeared normal. There were no erosions or ulcerations seen and the patient tolerated the procedure well. IMPRESSION: 1. Mild antral gastritis. 2. 3 mm tongue of Gold's appearing mucosa proximal to the GE junction and mild esophagitis. RECOMMENDATIONS: The findings of this examination were discussed with the patient as well as his family. He will be continued on Protonix 40 mg twice daily and was advised about antireflux measures. Diet will be advanced as tolerated. He can be discharged from with outpatient follow-up in 4 weeks.
[2021-01-15 12:38] VITALS: BP 135/75; PULSE 60; RESP 18; TEMP 98
[2021-01-15] MEDS: PANTOPRAZOLE 40 MG/10 ML VIAL IVP SCH (12:50)
--- NOTE | 2021-01-15 15:26 | P.PN ---
Subjective This is a pleasant 79-year-old male past medical history significant for GERD, nonobstructive coronary artery disease, dyslipidemia, hypertension, left renal carcinoma with sternal mets s/p left nephrectomy, He follows with Dr. Mcneal. The follows in the office with Dr. Sultana. We have been asked to see in consultation for chest pain. Troponins 0.04/-->0.071-->0.066. Pain states pain started Yesterday 6:00pm. Patient had 4-6 episodes of burning abdominal/epigastric pain. He states this pain was excruciating,. This is more frequent for the patient. Patient states yesterday he went out with his friend and had Fried mushrooms. Then he went home and for dinner had a plate of spaghetti. Pain is burning. It starts in his belly and radiates up to epigastric region. Patient also states he felt dehydrated. Denies shortness of breath, pal pitations, chest discomfort, syncope, lightheadedness, nausea, vomiting, or diarrhea. Patient was recently admitted on 01/07/21 with complaints of chest pain. This chest pain was resolved in atypical epigastric pain are likely related to GI source. His troponins were negative 3. At that time patient did have new T wave inversions in the anterior lateral leads. Ranexa was started. Protonix was also started. Echocardiogram was performed and showed an ejection fraction of 50-55% with no wall motion abnormalities, mild MR, moderate pulmonic regurgitation mild to moderate AI, mild TR. At that time patient is not a candidate for coronary angiography, due to renal function. We recommend to treat the patient medically at this time. In patient was discharged home stable to follow up with cardiology in one week. 02/2020:He underwent cardiac catheterization secondary to mild troponin elevation revealing 20-30% plaque of the proximal LAD, an area of stenosis at the takeoff of the second diagonal branch 40-50%, OM branch of the circumflex with a 20-30% plaque in mid intimal disease of the RCA 20%. 01/15/21: Patient seen and examined at bedside, no acute distress, denies chest pain or shortness of breath. Blood pressure 134/70, heart rate 65, afebrile, maintaining oxygen saturations 99% on room air. Serum creatinine 1.84, potassium 4.7, Sodium 138. Patient underwent Lexiscan stress test yesterday which was negative . Plan for EGD today with GI. PHYSICAL EXAMINATION Blood pressure 134/70 heart rate 65 afebrile and maintaining oxygen saturation on room air. GENERAL: Well-appearing, well-nourished and in no acute distress. NECK: Supple without JVD or thyromegaly. LUNGS: Breath sounds clear to auscultation bilaterally. Respiration equal and unlabored. No wheezes, rales or rhonchi. HEART: Regular rate and rhythm without murmurs, rubs or gallops. S1 and S2 heard. EXTREMITIES: Normal range of motion, no edema. No clubbing or cyanosis. Peripheral pulses intact. ASSESSMENT Chest pain, atypical, pain appears to be more GI related Elevated troponin, not indicative of acute coronary syndrome at this time. Possibly related to patient's B[place]. Hypertension Acute on Chronic kidney disease s/p left nephrectomy - currently on IVF Renal carcinoma Dyslipidemia Former nicotine dependence PLAN Lexiscan stress test yesterday negative for any reversible ischemia From cardiology perspective okay to proceed with EGD Patients chest pain not indicative of acute coronary syndrome, Lexiscan stress test negative. No further cardiology workup at this time We will sign off at this time Please reach out with any other questions or concerns Patient can follow up with Dr. Torres in the office Nurse Practitioner note has been reviewed, I agree with a documented findings and plan of care. Patient was seen and examined. Objective - Vital Signs Vital signs: Vital Signs Temp 98.0 F 01/15/21 12:00 Pulse 60 01/15/21 14:00 Resp 18 01/15/21 14:00 BP 135/75 01/15/21 12:00 Pulse Ox 99 01/15/21 12:00 Intake & Output 01/14/21 01/15/21 01/15/21 18:59 06:59 18:59 Intake Total 240 675 100 Balance 240 675 100 Weight 56.11 kg Intake: IV 100 Intake, IV Titration 675 Amount Sodium Chloride 0.9% 1, 675 000 ml @ 75 mls/hr IV . [id number] [facility] Rx#:[id number] Oral 240 Other: Voiding Method Toilet Bedside Commode Bedside Commode Bedside Commode - Labs CBC & Chem 7: 01/15/21 07:41 01/15/21 07:41 Labs: Abnormal Lab Results - Last 24 Hours (Table) 01/15/21 01/15/21 Range/Units 07:41 07:41 Hgb 12.9 L (13.0-17.5) gm/dL Chloride 111 H (98-107) mmol/L BUN 22 H (9-20) mg/dL Creatinine 1.84 H (0.66-1.25) mg/dL
[2021-01-15] MEDS ORDERED: POLYMYXIN B-TRIMETHOPRIM SULF (10,000-1) OPHTH DROPS 10 ML BTL BOTH EYES SCH (16:00)
== END 2021-01-15 16:53 | disposition home or self-care (01) ==
LOC: EC 08:22 → 3SCARD 10:39
PROVIDERS: ADMIT Hospitalist; ATTEND Hospitalist
DX: K29.70 Gastritis, unspecified, without bleeding (principal); K21.00 Gastro-esophageal reflux disease with esophagitis, without bleeding; K22.70 Barrett's esophagus without dysplasia; N17.9 Acute kidney failure, unspecified; N18.4 Chronic kidney disease, stage 4 (severe); I12.9 Hypertensive chronic kidney disease with stage 1 through stage 4 chronic kidney disease, or unspecified chronic kidney disease; E78.5 Hyperlipidemia, unspecified; N40.0 Benign prostatic hyperplasia without lower urinary tract symptoms; C64.9 Malignant neoplasm of unspecified kidney, except renal pelvis; C79.89 Secondary malignant neoplasm of other specified sites; N28.1 Cyst of kidney, acquired; I25.10 Atherosclerotic heart disease of native coronary artery without angina pectoris; F32.9 Major depressive disorder, single episode, unspecified; Z20.822 Contact with and (suspected) exposure to COVID-19; M19.90 Unspecified osteoarthritis, unspecified site; Z79.82 Long term (current) use of aspirin; Z79.02 Long term (current) use of antithrombotics/antiplatelets; Z79.899 Other long term (current) drug therapy; Z88.1 Allergy status to other antibiotic agents; Z88.8 Allergy status to other drugs, medicaments and biological substances; Z87.891 Personal history of nicotine dependence; Z90.5 Acquired absence of kidney; Z85.528 Personal history of other malignant neoplasm of kidney; Z80.3 Family history of malignant neoplasm of breast; Z82.49 Family history of ischemic heart disease and other diseases of the circulatory system; Z80.8 Family history of malignant neoplasm of other organs or systems
CPT/HCPCS: 99285; 36415; 93005; 93017; 85379; 88305; 83880; 80053; 80048 ×2; 83690; 83735; 84484; 85025 ×2; 85027; 85610; 85730; 87636; 71046; 76705; 78452; 43239; G0378 ×3; A9500; J2785; J2704; C9113 ×3

== ENCOUNTER 2021-01-16 13:03 | Emergency (ER) | payer OTHER ==
[2021-01-16 13:09] VITALS: BP 165/80; PULSE 66; RESP 20; TEMP 98
[2021-01-16] MEDS ORDERED: FLUORESCEIN STRIPS 1 MG STRIP BOTH EYES ONE (13:23)
[2021-01-16] MEDS ORDERED: PROPARACAINE 0.5% OPHTH DROPS 15 ML BTL ONE (13:29)
[2021-01-16] MEDS ORDERED: PROPARACAINE 0.5% OPHTH DROPS 15 ML BTL BOTH EYES SCH (13:30)
--- NOTE | 2021-01-16 14:03 | ED ---
Eye Problem HPI - General Chief complaint: Eye Problems Stated complaint: chemicals in eyes Time Seen by Provider: 01/16/21 13:22 Source: patient Mode of arrival: ambulatory Limitations: no limitations - History of Present Illness Initial comments: Patient is a pleasant 80-year-old male presenting to the emergency Department with complaints of bilateral eye discomfort. Patient was working and did squirt a solution that did have some alumina minute. Patient states the mist did go near his eyes and caused irritation. Patient was wearing regular glasses. Patient states there is a burning discomfort bilateral eyes. No change in vision. Patient does have antibiotic eyedrops from recent eye infection that he just stopped several days ago. - Related Data Home Medications Medication Instructions Recorded Confirmed Metoprolol Tartrate 25 mg PO BID 10/12/17 01/13/21 Tamsulosin HCl [Flomax] 0.4 mg PO HS 10/12/17 01/13/21 Aspirin [Adult Low Dose Aspirin EC] 81 mg PO HS 02/29/20 01/13/21 Diclofenac Sodium [Voltaren Gel] 1 applic TOPICAL BID PRN 03/26/20 01/13/21 Pravastatin Sodium [Pravachol] 20 mg PO HS 08/28/20 01/13/21 Ferrous Sulfate [Iron] 325 mg PO DAILY 01/07/21 01/13/21 Lidocaine 5% Patch [Lidoderm 5% 1 patch TOPICAL DAILY 01/07/21 01/13/21 Patch] Previous Rx's Medication Instructions Recorded Clopidogrel [Plavix] 75 mg PO DAILY #90 tab 03/02/20 Isosorbide Mononitrate ER [Imdur] 30 mg PO DAILY #90 tab.er.24h 03/02/20 Nitroglycerin Sl Tabs [Nitrostat] 0.4 mg SUBLINGUAL Q5M PRN #25 tab 03/02/20 Pantoprazole Sodium [Protonix] 40 mg PO DAILY #60 tablet. 01/09/21 Ranolazine [Ranexa] 500 mg PO Q12HR #60 tab.er.12h 01/09/21 Pantoprazole Sodium [Protonix] 40 mg PO AC-BID #60 tablet. 01/15/21 Polymyxin B-Trimeth Sulf Ophth 1 drops BOTH EYES Q4H 7 Days #1 ml 01/15/21 [Polytrim Opthalmic] Allergies Allergy/AdvReac Type Severity Reaction Status Date / Time atorvastatin calcium Allergy Unknown Verified 01/16/21 13:09 [From Lipitor] clindamycin AdvReac JOINT PAIN Verified 01/16/21 13:09 Review of Systems ROS Statement: Those systems with pertinent positive or pertinent negative responses have been documented in the HPI. ROS Other: All systems not noted in ROS Statement are negative. Constitutional: Denies: fever Eyes: Reports: as per HPI, eye pain. Denies: vision change ENT: Denies: ear pain Respiratory: Denies: cough Cardiovascular: Denies: chest pain Endocrine: Denies: fatigue Gastrointestinal: Denies: abdominal pain Genitourinary: Denies: urgency Past Medical History Past Medical History: Cancer, Chest Pain / Angina, GERD/Reflux, Hyperlipidemia, Hypertension, Osteoarthritis (OA), Prostate Disorder, Renal Disease Additional Past Medical History / Comment(s): L renal cancer with nephrectomy/mets L lung and pt states spot on sternum is gone now-currently taking oral chemotherapy, chronic renal failure stage II, lower leg edema th ought to be due to HTN medications, BPH, chronic low back pain, arthritis vs gout r great toe. 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 Past Anesthesia/Blood Transfusion Reactions: No Reported Reaction Past Psychological History: Depression Smoking Status: Former smoker Past Alcohol Use History: Occasional Past Drug Use History: Marijuana - Past Family History Father Family Medical History: Cancer, Hypertension, Myocardial Infarction ([place]) Additional Family Medical History / Comment(s): SKIN CANCER Mother Family Medical History: Cancer Additional Family Medical History / Comment(s): breast cancer - throat cancer Sister(s) Family Medical History: Cancer Additional Family Medical History / Comment(s): SKIN CANCER General Exam Limitations: no limitations General appearance: alert, in no apparent distress Head exam: Present: atraumatic Eye exam: Present: conjunctival injection Pupils: Present: other (No uptake with fluorescein staining. PH 7.0 bilateral) Expanded Eyelids: Erythema: Bilateral (Mild bilateral pinkish erythema both eyelids that patient attributes to rubbing his eyes) Pupils: Regular, Round: Bilateral Sclera/Conjunctival: Injection: Bilateral Neck exam: Present: normal inspection Respiratory exam: Present: normal lung sounds bilaterally Cardiovascular Exam: Present: regular rate, normal rhythm GI/Abdominal exam: Present: soft. Absent: tenderness Neurological exam: Present: alert Psychiatric exam: Present: normal affect, normal mood Skin exam: Present: other (Mild pinkish erythema bilateral eyelids) Course Vital Signs 01/16/21 13:04 Temperature 98.0 F Pulse Rate 66 Respiratory 20 Rate Blood Pressure 165/80 O2 Sat by Pulse 99 Oximetry Medical Decision Making - Medical Decision Making Patient will have eyes irrigated by nursing staff prior to discharge. Patient is instructed to use his antibiotic eyedrops until follow-up with his eye doctor in the next couple of days. Disposition Clinical Impression: Chemical conjunctivitis Disposition: HOME SELF-CARE Condition: Stable Instructions (If sedation given, give patient instructions): Conjunctivitis (ED) Additional Instructions: Please follow-up with primary care physician as well as your eye doctor in the next day or 2 for recheck. Return for loss of vision, increased pain, increase redness or rash, worsening symptoms or any other concerns. Continue to use your antibiotic eyedrops every 4 hours while awake for the next 3 days or unless otherwise directed by your eye doctor. Is patient prescribed a controlled substance at d/c from ED?: No Referrals: [facility] [Primary Care Provider] - 1-2 days Jose Roberto Rao MD [STAFF PHYSICIAN] - 1-2 days Time of Disposition: 14:02
== END 2021-01-16 14:12 | disposition home or self-care (01) ==
LOC: EC 13:03
DX: H10.213 Acute toxic conjunctivitis, bilateral (principal); E78.5 Hyperlipidemia, unspecified; I12.9 Hypertensive chronic kidney disease with stage 1 through stage 4 chronic kidney disease, or unspecified chronic kidney disease; K21.9 Gastro-esophageal reflux disease without esophagitis; M19.90 Unspecified osteoarthritis, unspecified site; N18.2 Chronic kidney disease, stage 2 (mild); N40.0 Benign prostatic hyperplasia without lower urinary tract symptoms; Z79.02 Long term (current) use of antithrombotics/antiplatelets; Z79.1 Long term (current) use of non-steroidal anti-inflammatories (NSAID); Z87.891 Personal history of nicotine dependence; Z79.82 Long term (current) use of aspirin; Z80.3 Family history of malignant neoplasm of breast; Z82.49 Family history of ischemic heart disease and other diseases of the circulatory system; Z85.528 Personal history of other malignant neoplasm of kidney; Z88.1 Allergy status to other antibiotic agents
CPT/HCPCS: 99282

== ENCOUNTER 2021-02-09 11:35 | Observation (INO) | payer OTHER ==
[2021-02-09] MEDS ORDERED: SODIUM CHLORIDE 0.9% 500 ML 500 ML IV STA (11:56)
[2021-02-09] MEDS ORDERED: SODIUM CHLORIDE 0.9% 1,000 ML IV STA (11:56)
[2021-02-09 12:05] LABS: Glucose,Whole Blood 131 mg/dL (75-99)
--- NOTE | 2021-02-09 12:10 | ED ---
Dizziness HPI - General Chief Complaint: Syncope Stated Complaint: Weakness,Lost control of bladder Time Seen by Provider: 02/09/21 11:50 Source: patient Mode of arrival: ambulatory Limitations: no limitations - History of Present Illness Initial Comments: 80-year-old male presenting to the ER today for chief complaint of syncopal episode. 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 pt states he came to and everyone was around him. He self he felt slightly weak he denied chest pain shortness of breath nausea vomiting but had noted that he had been incontinent to urine. Patient denies any current symptoms he states he feels fine. He denies of being hot in his place of work. Pt states he think this is due to his GERD medications as he began taking them after experiencing indigestion over the weekend. romy nay current indigestion, abdominal pain, back pain, jaw or arm pain. patient is very pleasant and appears well on arrival - Related Data Home Medications Medication Instructions Recorded Confirmed Metoprolol Tartrate 25 mg PO BID 10/12/17 02/09/21 Tamsulosin HCl [Flomax] 0.4 mg PO HS 10/12/17 02/09/21 Aspirin [Adult Low Dose Aspirin EC] 81 mg PO HS 02/29/20 02/09/21 Diclofenac Sodium [Voltaren Gel] 1 applic TOPICAL BID PRN 03/26/20 02/09/21 Pravastatin Sodium [Pravachol] 20 mg PO HS 08/28/20 02/09/21 Ferrous Sulfate [Iron] 325 mg PO DAILY 01/07/21 02/09/21 Lidocaine 5% Patch [Lidoderm 5% 1 patch TOPICAL DAILY 01/07/21 02/09/21 Patch] Nitroglycerin Sl Tabs [Nitrostat] 0.4 mg SL Q5M PRN 02/09/21 02/09/21 Pantoprazole Sodium [Protonix] 20 mg PO DAILY 02/09/21 02/09/21 Ranolazine [Ranexa] 500 mg PO BID 02/09/21 02/09/21 Previous Rx's Medication Instructions Recorded Clopidogrel [Plavix] 75 mg PO DAILY #90 tab 03/02/20 Isosorbide Mononitrate ER [Imdur] 30 mg PO DAILY #90 tab.er.24h 03/02/20 Allergies Allergy/AdvReac Type Severity Reaction Status Date / Time atorvastatin calcium Allergy Unknown Verified 02/09/21 11:45 [From Lipitor] clindamycin AdvReac JOINT PAIN Verified 02/09/21 11:45 Review of Systems ROS Statement: Those systems with pertinent positive or pertinent negative responses have been documented in the HPI. ROS Other: All systems not noted in ROS Statement are negative. Past Medical History Past Medical History: Cancer, Chest Pain / Angina, GERD/Reflux, Hyperlipidemia, Hypertension, Osteoarthritis (OA), Prostate Disorder, Renal Disease Additional Past Medical History / Comment(s): L renal cancer with nephrectomy/mets L lung and pt states spot on sternum is gone now-currently taking oral chemotherapy, chronic renal failure stage II, lower leg edema thought to be due to HTN medications, BPH, chronic low back pain, arthritis vs gout r great toe. 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 Past Anesthesia/Blood Transfusion Reactions: No Reported Reaction Past Psychological History: Depression Smoking Status: Former smoker Past Alcohol Use History: Occasional Past Drug Use History: Marijuana - Past Family History Father Family Medical History: Cancer, Hypertension, Myocardial Infarction ([place]) Additional Family Medical History / Comment(s): SKIN CANCER Mother Family Medical History: Cancer Additional Family Medical History / Comment(s): breast cancer - throat cancer Sister(s) Family Medical History: Cancer Additional Family Medical History / Comment(s): SKIN CANCER General Exam - General Exam Comments Initial Comments: General: The patient is awake and alert, in no distress, and does not appear acutely ill. Eye: Pupils are equal, round and reactive to light, extra-ocular movements are intact. No nystagmus. There is normal conjunctiva bilaterally. No signs of icterus. Ears, nose, mouth and throat: There are moist mucous membranes and no oral lesions. Neck: The neck is supple, there is no tenderness or JVD. Cardiovascular: There is a regular rate and rhythm. No murmur, rub or gallop is appreciated. Respiratory: Lungs are clear to auscultation, respirations are non-labored, breath sounds are equal. No wheezes, stridor, rales, or rhonchi. Gastrointestinal: Soft, non-distended, non-tender abdomen without masses or organomegaly noted. There is no rebound or guarding present Musculoskeletal: Normal ROM, no tenderness. Strength 5/5. Sensation intact. Pulses equal bilaterally 2+. Neurological: A&O x 3. CN II-XII intact, There are no obvious motor or sensory deficits. Coordination appears grossly intact. Speech is normal. Skin: Skin is warm and dry and no rashes or lesions are noted. Psychiatric: Cooperative, appropriate mood & affect, normal judgment. Limitations: no limitations Course Vital Signs 02/09/21 02/09/21 11:41 13:44 Temperature 97.8 F 97.0 F L Pulse Rate 62 Pulse Rate [ 60 Pulse Oximetery ] Respiratory 18 16 Rate Blood Pressure 95/60 Blood Pressure 140/73 [Left Arm] O2 Sat by Pulse 98 97 Oximetry EKG Findings - EKG Comments: EKG Findings:: Ventricular rate 59 bpm, OK interval 176 ms, QRS zoroastrianism 92 ms, QT/QTC 452/447 ms. There is no ST elevation or depression noted Medical Decision Making - Medical Decision Making Chronic kidney disease. troponin (-). Pt labs overall unremarkable. pt did have indigestion over the weekend and with age/syncopal episode, dry appearance on exam with slight increase BUN/Cr and +1 ketones in urine i felt it was apprpriate for admission for hydration/Cardiology evaluation. pt agreeable to care plan and admission - Lab Data Result diagrams: 02/09/21 12:02 02/09/21 12:02 Lab Results 02/09/21 02/09/21 02/09/21 Range/Units 12:02 12:02 12:02 WBC 5.8 (3.8-10.6) k/uL RBC 4.16 L (4.30-5.90) m/uL Hgb 13.1 (13.0-17.5) gm/dL Hct 36.9 L (39.0-53.0) % MCV 88.8 (80.0-100.0) fL MCH 31.5 (25.0-35.0) pg MCHC 35.5 (31.0-37.0) g/dL RDW 13.6 (11.5-15.5) % Plt Count 283 (150-450) k/uL MPV 8.4 Neutrophils % 56 % Lymphocytes % 22 % Monocytes % 12 % Eosinophils % 8 % Basophils % 1 % Neutrophils # 3.2 (1.3-7.7) k/uL Lymphocytes # 1.2 (1.0-4.8) k/uL Monocytes # 0.7 (0-1.0) k/uL Eosinophils # 0.5 (0-0.7) k/uL Basophils # 0.0 (0-0.2) k/uL PT 10.2 (9.0-12.0) sec INR 0.9 (<1.2) APTT 24.5 (22.0-30.0) sec Sodium 132 L (137-145) mmol/L Potassium 4.5 (3.5-5.1) mmol/L Chloride 99 (98-107) mmol/L Carbon Dioxide 23 (22-30) mmol/L Anion Gap 10 mmol/L BUN 29 H (9-20) mg/dL Creatinine 1.90 H (0.66-1.25) mg/dL Est GFR (CKD-EPI)AfAm 38 (>60 ml/min/1.73 sqM) Est GFR (CKD-EPI)NonAf 33 (>60 ml/min/1.73 sqM) Glucose 122 H (74-99) mg/dL POC Glucose (mg/dL) (75-99) mg/dL POC Glu Byproducts Extractor ID Calcium 9.9 (8.4-10.2) mg/dL Magnesium 1.9 (1.6-2.3) mg/dL Total Bilirubin 0.3 (0.2-1.3) mg/dL AST 29 (17-59) U/L ALT 14 (4-49) U/L Alkaline Phosphatase 95 (38-126) U/L Troponin I (0.000-0.034) ng/mL NT-Pro-B Natriuret Pep pg/mL Total Protein 6.6 (6.3-8.2) g/dL Albumin 3.9 (3.5-5.0) g/dL Urine Color Urine Appearance (Clear) Urine pH (5.0-8.0) Ur Specific Dixon (1.001-1.035) Urine Protein (Negative) Urine Glucose (UA) (Negative) Urine Ketones (Negative) Urine Blood (Negative) Urine Nitrite (Negative) Urine Bilirubin (Negative) Urine Urobilinogen (<2.0) mg/dL Ur Leukocyte Esterase (Negative) Coronavirus (PCR) (Not Detectd) 02/09/21 02/09/21 02/09/21 Range/Units 12:02 12:02 12:03 WBC (3.8-10.6) k/uL RBC (4.30-5.90) m/uL Hgb (13.0-17.5) gm/dL Hct (39.0-53.0) % MCV (80.0-100.0) fL MCH (25.0-35.0) pg MCHC (31.0-37.0) g/dL RDW (11.5-15.5) % Plt Count (150-450) k/uL MPV Neutrophils % % Lymphocytes % % Monocytes % % Eosinophils % % Basophils % % Neutrophils # (1.3-7.7) k/uL Lymphocytes # (1.0-4.8) k/uL Monocytes # (0-1.0) k/uL Eosinophils # (0-0.7) k/uL Basophils # (0-0.2) k/uL PT (9.0-12.0) sec INR (<1.2) APTT (22.0-30.0) sec Sodium (137-145) mmol/L Potassium (3.5-5.1) mmol/L Chloride (98-107) mmol/L Carbon Dioxide (22-30) mmol/L Anion Gap mmol/L BUN (9-20) mg/dL Creatinine (0.66-1.25) mg/dL Est GFR (CKD-EPI)AfAm (>60 ml/min/1.73 sqM) Est GFR (CKD-EPI)NonAf (>60 ml/min/1.73 sqM) Glucose (74-99) mg/dL POC Glucose (mg/dL) 131 H (75-99) mg/dL POC Glu Byproducts Extractor ID Jose Brito Calcium (8.4-10.2) mg/dL Magnesium (1.6-2.3) mg/dL Total Bilirubin (0.2-1.3) mg/dL AST (17-59) U/L ALT (4-49) U/L Alkaline Phosphatase (38-126) U/L Troponin I <0.012 (0.000-0.034) ng/mL NT-Pro-B Natriuret Pep 451 pg/mL Total Protein (6.3-8.2) g/dL Albumin (3.5-5.0) g/dL Urine Color Urine Appearance (Clear) Urine pH (5.0-8.0) Ur Specific Dixon (1.001-1.035) Urine Protein (Negative) Urine Glucose (UA) (Negative) Urine Ketones (Negative) Urine Blood (Negative) Urine Nitrite (Negative) Urine Bilirubin (Negative) Urine Urobilinogen (<2.0) mg/dL Ur Leukocyte Esterase (Negative) Coronavirus (PCR) (Not Detectd) 02/09/21 02/09/21 Range/Units 12:05 13:19 WBC (3.8-10.6) k/uL RBC (4.30-5.90) m/uL Hgb (13.0-17.5) gm/dL Hct (39.0-53.0) % MCV (80.0-100.0) fL MCH (25.0-35.0) pg MCHC (31.0-37.0) g/dL RDW (11.5-15.5) % Plt Count (150-450) k/uL MPV Neutrophils % % Lymphocytes % % Monocytes % % Eosinophils % % Basophils % % Neutrophils # (1.3-7.7) k/uL Lymphocytes # (1.0-4.8) k/uL Monocytes # (0-1.0) k/uL Eosinophils # (0-0.7) k/uL Basophils # (0-0.2) k/uL PT (9.0-12.0) sec INR (<1.2) APTT (22.0-30.0) sec Sodium (137-145) mmol/L Potassium (3.5-5.1) mmol/L Chloride (98-107) mmol/L Carbon Dioxide (22-30) mmol/L Anion Gap mmol/L BUN (9-20) mg/dL Creatinine (0.66-1.25) mg/dL Est GFR (CKD-EPI)AfAm (>60 ml/min/1.73 sqM) Est GFR (CKD-EPI)NonAf (>60 ml/min/1.73 sqM) Glucose (74-99) mg/dL POC Glucose (mg/dL) (75-99) mg/dL POC Glu Byproducts Extractor ID Calcium (8.4-10.2) mg/dL Magnesium (1.6-2.3) mg/dL Total Bilirubin (0.2-1.3) mg/dL AST (17-59) U/L ALT (4-49) U/L Alkaline Phosphatase (38-126) U/L Troponin I (0.000-0.034) ng/mL NT-Pro-B Natriuret Pep pg/mL Total Protein (6.3-8.2) g/dL Albumin (3.5-5.0) g/dL Urine Color Yellow Urine Appearance Clear (Clear) Urine pH 5.5 (5.0-8.0) Ur Specific Dixon 1.018 (1.001-1.035) Urine Protein Trace H (Negative) Urine Glucose (UA) Negative (Negative) Urine Ketones 1+ H (Negative) Urine Blood Negative (Negative) Urine Nitrite Negative (Negative) Urine Bilirubin Negative (Negative) Urine Urobilinogen <2.0 (<2.0) mg/dL Ur Leukocyte Esterase Negative (Negative) Coronavirus (PCR) Not Detected (Not Detectd) Disposition Clinical Impression: Syncope, Dehydration Disposition: ADMITTED IP TO THIS [facility] Condition: Stable Is patient prescribed a controlled substance at d/c from ED?: No Referrals: Derrell Cordova DO [Doctor of Osteopathic Medicine] - 1-2 days Time of Disposition: 14:43 Decision to Admit Reason: Admit from EC Decision Date: 02/09/21 Decision Time: 14:43
[2021-02-09 12:36] LABS: Basophils % (A) 1 %; Eosinophils # (A) 0.5 k/uL (0-0.7); Eosinophils % (A) 8 %; HCT 36.9 % (39.0-53.0); HGB 13.1 gm/dL (13.0-17.5); Lymphocytes # (A) 1.2 k/uL (1.0-4.8); Lymphocytes % (A) 22 %; MCH 31.5 pg (25.0-35.0); MCHC 35.5 g/dL (31.0-37.0); MCV 88.8 fL (80.0-100.0); Mean Platelet Volume 8.4; Monocytes # (A) 0.7 k/uL (0-1.0); Monocytes % (A) 12 %; Neutrophils # (A) 3.2 k/uL (1.3-7.7); Neutrophils % (A) 56 %; Platelet Count 283 k/uL (150-450); RBC 4.16 m/uL (4.30-5.90); RDW 13.6 % (11.5-15.5); WBC 5.8 k/uL (3.8-10.6)
--- NOTE | 2021-02-09 12:36 | XR ---
EXAMINATION TYPE: XR chest 2V DATE OF EXAM: 02/09/2021 COMPARISON: Chest x-ray 01/13/2021 HISTORY: Syncope TECHNIQUE: Frontal and lateral views of the chest are obtained. FINDINGS: There is no focal air space opacity, pleural effusion, or pneumothorax seen. The cardiac silhouette size is within normal limits. There are prominent lung volumes. Postop changes are noted in the abdomen. High riding right shoulder suggests chronic rotator cuff tear. There are overlying le ads. The osseous structures are intact. IMPRESSION: No acute cardiopulmonary process.
[2021-02-09 12:45] LABS: Albumin 3.9 g/dL (3.5-5.0); Calcium 9.9 mg/dL (8.4-10.2); Magnesium 1.9 mg/dL (1.6-2.3); Potassium 4.5 mmol/L (3.5-5.1); Total Bilirubin 0.3 mg/dL (0.2-1.3); Total Protein 6.6 g/dL (6.3-8.2)
[2021-02-09 12:48] LABS: INR 0.9 (<1.2); Partial Thromboplastin Time 24.5 sec (22.0-30.0); Prothrombin Time 10.2 sec (9.0-12.0)
[2021-02-09 13:26] LABS: Appearance,Urine Clear (Clear); Bilirubin,Urine Negative (Negative); Blood,Urine Negative (Negative); Color,Urine Yellow; Glucose,Urine (UA) Negative (Negative); Ketones,Urine 1+ (Negative); Leukocyte Esterase,Urine Negative (Negative); Nitrite,Urine Negative (Negative); PH, Urine 5.5 (5.0-8.0); Protein,Urine Trace (Negative); Specific Gravity,Urine 1.018 (1.001-1.035); Urobilinogen,Urine <2.0 mg/dL (<2.0)
[2021-02-09] MEDS ORDERED: NALOXONE 0.4 MG/ML 1 ML VIAL IV PRN (13:57)
[2021-02-09] MEDS ORDERED: NITROGLYCERIN SL TABS 0.4 MG TAB SUBLINGUAL PRN (19:50)
[2021-02-09] MEDS ORDERED: SUCRALFATE 1 GM TAB PO STA (19:51)
[2021-02-09] MEDS: METOPROLOL TARTRATE 25 MG TAB PO SCH (21:09)
[2021-02-09] MEDS: ASPIRIN 81 MG PO SCH (21:09)
[2021-02-09] MEDS: RANOLAZINE 500 MG TAB.ER.12H PO SCH (21:09)
[2021-02-09] MEDS: TAMSULOSIN 0.4 MG CAP.ER.24H PO SCH (21:09)
[2021-02-09] MEDS: PRAVASTATIN SODIUM 20 MG TAB PO SCH (21:09)
[2021-02-09] MEDS: PANTOPRAZOLE 40 MG/10 ML VIAL IVP SCH (21:10)
[2021-02-10] MEDS: LIDOCAINE 5% PATCH TOPICAL SCH (08:58)
[2021-02-10] MEDS: CLOPIDOGREL 75 MG TAB PO SCH (08:58)
[2021-02-10] MEDS: FERROUS SULFATE 325 MG TAB PO SCH (08:58)
[2021-02-10] MEDS: PANTOPRAZOLE 40 MG/10 ML VIAL IVP SCH ×2 (08:58→19:51)
[2021-02-10] MEDS: METOPROLOL TARTRATE 25 MG TAB PO SCH ×2 (08:58→19:51)
[2021-02-10] MEDS: RANOLAZINE 500 MG TAB.ER.12H PO SCH (09:00)
[2021-02-10] MEDS ORDERED: ISOSORBIDE MONONITRATE ER 30 MG TAB.ER.24H PO SCH (09:00)
--- NOTE | 2021-02-10 12:25 | P.CRDCN ---
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 Mcneal. The follows in the office with Dr. Sultana. We have been asked to see in consultation for pre-syncope. Patient states around 9:30am-10:00, he started to experience lightheadedness. 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 He woke up to everyone around him, told he passed out. He states he did not eat breakfast yesterday morning. He denied chest pain, shortness of breath, palpitations, nausea, diaphoresis. EKG revealed sinus bradycardia, heart rate 59, T wave inversion in leads aVL and V2, no significant ST segment abn ormalities. Prior EKG in 01/13/2021 sinus rhythm HR 60, T wave inversions in leads aVL, V2-V5. Telemetry tracings sinus mechanism, no significant bradycardia or arrythmia noted. Patient started on IV fluids. Home medications were restarted. In January 07 2021 patient presented to the emergency department, with 4-6 episodes of burning abdominal/epigastric pain. Pain resolved and was atypical epigastric pain are likely related to GI source. His troponins were negative 3. At that time patient did have new T wave inversions in the anterior lateral leads. Ranexa was started. Protonix was also started. Echocardiogram was performed and showed an ejection fraction of 50-55% with no wall motion abnormalities, mild MR, moderate pulmonic regurgitation mild to moderate AI, mild TR. At that time patient is not a candidate for coronary angiography, due to renal function. Patient came back to the hospital 01/13/21, with similar complaints of chest pain. Lexiscan stress test was performed and it was negative for reversible ischemia 02/2020:He underwent cardiac catheterization secondary to mild troponin elevation revealing 20-30% plaque of the proximal LAD, an area of stenosis at the takeoff of the second diagonal branch 40-50%, OM branch of the circumflex with a 20-30% plaque in mid intimal disease of the RCA 20%. DIAGNO Chest xray negative for an acute cardiopulmonary process. Laboratory data reviewed, Sodium 132, K 4.5, sCr 1.9 (baseline), troponin negative x 1, PRo BNP 451, Mag 1.9, Covid-19 negative Current cardiac medications include Ranexa 500 mg twce a day, aspirin 81 mg cristofer ly, Plavix 75 mg daily, Imdur 30 mg daily, metoprolol 25 mg twice a day and pravastatin 20 mg. REVIEW OF SYSTEMS At the time of my exam CONSTITUTIONAL: +lightheadedness +presyncope +dizziness Denies fever or chills. CARDIOVASCULAR: Denies chest pain,Denies shortness of breath, orthopnea, PND or palpitations. RESPIRATORY: Denies cough. GASTROINTESTINAL:Denies abdominal pain Denies diarrhea, constipation, nausea or vomiting. MUSCULOSKELETAL: Denies myalgias. NEUROLOGIC: Denies numbness, tingling or weakness. ENDOCRINE: Denies fatigue, weight change, polydipsia or polyurina. GENITOURINARY: Denies burning, hematuria or urgency with micturation. HEMATOLOGIC: Denies history of anemia or bleeding. PHYSICAL EXAMINATION Blood pressure heart rate afebrile and maintaining oxygen saturation on room air. CONSTITUTIONAL: No apparent distress. HEENT: Head is normocephalic. Pupils are equal, round. Sclerae anicteric. Mucous membranes of the mouth are moist. No JVD. No carotid bruit. CHEST EXAMINATION: Lungs are clear to auscultation. No chest wall tenderness is noted on palpation or with deep breathing. HEART EXAMINATION: Regular rate and rhythm. S1, S2 heard., gallops or rub. ABDOMEN: Soft, nontender. Positive bowel sounds. EXTREMITIES: 2+ peripheral pulses, no lower extremity edema and no calf tenderness. NEUROLOGIC EXAMINATION: Patient is awake, alert and oriented x3. ASSESSMENT Syncope, most likely vasovagal Hypertension Acute on Chronic kidney disease s/p left nephrectomy Renal carcinoma Dyslipidemia Former nicotine dependence PLAN -Manual blood pressures taken, 115/60, 113/61 -Will continue patient's home metoprolol tartrate 25mg BID -Patient not on ACEI/ARB due to kidney function -No need to repeat echocardiogram with recent one last month -Discontinue patient's Imdur and Ranexa -Continue to monitor patient for one more day on telemetry Nurse Practitioner note has been reviewed, I agree with a documented findings and plan of care. Patient was seen and examinsodium Past Medical History Past Medical History: Cancer, Chest Pain / Angina, GERD/Reflux, Hyperlipidemia, Hypertension, Myocardial Infarction ([place]), Osteoarthritis (OA), Prostate Disorder, Renal Disease Additional Past Medical History / Comment(s): Pt recently admitted to [facility] on 01/13/21 with severe abdominal pain/gastritis/barretts esophagus. Other hx: L renal cancer with nephrectomy/mets L lung and sternum/no longer taking oral chemo d/t it was affecting his kidney/states he took chemo by infusion about 3 weeks ago and will have another cat scan soon, chronic renal failure stage IV, BPH, chronic low back pain, arthritis R great toe. Last Myocardial Infarction Date:: 02/29/20 History of Any Multi-Drug Resistant Organisms: None Reported Past Surgical History: Heart Catheterization, Orthopedic Surgery Additional Past Surgical History / Comment(s): Left nephrectomy 2015, RT HAND 2ND DIGIT LOST TOP OF FINGER IN CRUSHING INJURY, colonoscopy, 2 normal cardiac caths, EGD, colonoscopy, bilateral cataract removals/lens implants. Past Anesthesia/Blood Transfusion Reactions: No Reported Reaction Past Psychological History: Depression Additional Psychological History / Comment(s): Pt resides with his spouse. He is an [employer] . He is independent. 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 Smoking Status: Former smoker Past Alcohol Use History: Occasional Additional Past Alcohol Use History / Comment(s): Pt started smoking in 1960 and quit in the 1970s. Past Drug Use History: Marijuana Additional Drug Use History / Comment(s): Pt uses edible marijuiana on occasion. - Past Family History Father Family Medical History: Cancer, Hypertension, Myocardial Infarction ([place]) Additional Family Medical History / Comment(s): SKIN CANCER Mother Family Medical History: Cancer Additional Family Medical History / Comment(s): breast cancer - throat cancer Sister(s) Family Medical History: Cancer Additional Family Medical History / Comment(s): skin/breast and throat cancer Medications and Allergies Home Medications Medication Instructions Recorded Confirmed Type Metoprolol Tartrate 25 mg PO BID 10/12/17 02/09/21 History Tamsulosin HCl [Flomax] 0.4 mg PO HS 10/12/17 02/09/21 History Aspirin [Adult Low Dose Aspirin EC] 81 mg PO HS 02/29/20 02/09/21 History Clopidogrel [Plavix] 75 mg PO DAILY #90 tab 03/02/20 02/09/21 Rx Diclofenac Sodium [Voltaren Gel] 1 applic TOPICAL BID PRN 03/26/20 02/09/21 History Pravastatin Sodium [Pravachol] 20 mg PO HS 08/28/20 02/09/21 History Ferrous Sulfate [Iron] 325 mg PO DAILY 01/07/21 02/09/21 History Lidocaine 5% Patch [Lidoderm 5% 1 patch TOPICAL DAILY 01/07/21 02/09/21 History Patch] Nitroglycerin Sl Tabs [Nitrostat] 0.4 mg SL Q5M PRN 02/09/21 02/09/21 History Pantoprazole Sodium [Protonix] 20 mg PO DAILY 02/09/21 02/09/21 History Allergies Allergy/AdvReac Type Severity Reaction Status Date / Time atorvastatin calcium Allergy Unknown Verified 02/09/21 11:45 [From Lipitor] clindamycin AdvReac JOINT PAIN Verified 02/09/21 11:45 Physical Exam Vitals: Vital Signs Temp Pulse Pulse Pulse Pulse Pulse Resp 02/10/21 07:00 98.3 F 71 18 02/10/21 02:00 98.2 F 69 17 02/09/21 20:00 98.7 F 87 82 79 17 02/09/21 17:56 70 20 02/09/21 16:18 64 20 02/09/21 13:44 97.0 F L 60 16 02/09/21 11:41 97.8 F 62 18 BP BP BP BP BP Pulse Ox 02/10/21 07:00 149/82 96 02/10/21 02:00 164/86 98 02/09/21 20:00 157/85 164/81 161/79 97 02/09/21 17:56 169/85 99 02/09/21 16:18 132/64 99 02/09/21 13:44 140/73 97 02/09/21 11:41 95/60 98 Intake and Output 02/09/21 02/10/21 02/10/21 22:59 06:59 14:59 Output Total 450 Balance -450 Output: Urine 450 Other: Voiding Method Urinal # Voids 1 Weight 54.431 kg Results 02/09/21 12:02 02/09/21 12:02 Cardiac Enzymes 02/09/21 02/09/21 Range/Units 12:02 12:02 AST 29 (17-59) U/L Troponin I <0.012 (0.000-0.034) ng/mL Coagulation 02/09/21 Range/Units 12:02 PT 10.2 (9.0-12.0) sec APTT 24.5 (22.0-30.0) sec CBC 02/09/21 Range/Units 12:02 WBC 5.8 (3.8-10.6) k/uL RBC 4.16 L (4.30-5.90) m/uL Hgb 13.1 (13.0-17.5) gm/dL Hct 36.9 L (39.0-53.0) % Plt Count 283 (150-450) k/uL Comprehensive Metabolic Panel 02/09/21 Range/Units 12:02 Sodium 132 L (137-145) mmol/L Potassium 4.5 (3.5-5.1) mmol/L Chloride 99 (98-107) mmol/L Carbon Dioxide 23 (22-30) mmol/L BUN 29 H (9-20) mg/dL Creatinine 1.90 H (0.66-1.25) mg/dL Glucose 122 H (74-99) mg/dL Calcium 9.9 (8.4-10.2) mg/dL AST 29 (17-59) U/L ALT 14 (4-49) U/L Alkaline Phosphatase 95 (38-126) U/L Total Protein 6.6 (6.3-8.2) g/dL Albumin 3.9 (3.5-5.0) g/dL Current Medications Generic Name Dose Route Start Last Admin Trade Name Melanie PRN Reason Stop Dose Admin Aspirin 81 mg 02/09/21 21:00 02/09/21 21:09 Aspirin 81 Mg PO 81 mg HS JAY JAY Administration Clopidogrel Bisulfate 75 mg 02/10/21 09:00 02/10/21 08:58 Clopidogrel 75 Mg Tab PO 75 mg DAILY JAY JAY Administration Ferrous Sulfate 325 mg 02/10/21 09:00 02/10/21 08:58 Ferrous Sulfate 325 Mg Tab PO 325 mg DAILY JAY JAY Administration Lidocaine 1 patch 02/10/21 09:00 02/10/21 08:58 Lidocaine 5% Patch TOPICAL Not Given DAILY [facility] Metoprolol Tartrate 25 mg 02/09/21 21:00 02/10/21 08:58 Metoprolol Tartrate 25 Mg Tab PO 25 mg BID JAY JAY Administration Naloxone HCl 0.2 mg 02/09/21 13:57 Naloxone 0.4 Mg/Ml 1 Ml Vial IV Q2M PRN Opioid Reversal Nitroglycerin 0.4 mg 02/09/21 19:50 Nitroglycerin Sl Tabs 0.4 Mg Tab SUBLINGUAL Q5M PRN Chest Pain Pantoprazole Sodium 40 mg 02/09/21 21:00 02/10/21 08:58 Pantoprazole 40 Mg/10 Ml Vial IVP 40 mg BID JAY JAY Administration Pravastatin Sodium 20 mg 02/09/21 21:00 02/09/21 21:09 Pravastatin Sodium 20 Mg Tab PO 20 mg HS JAY JAY Administration Tamsulosin HCl 0.4 mg 02/09/21 21:00 02/09/21 21:09 Tamsulosin 0.4 Mg Cap.Er.24h PO 0.4 mg HS JAY JAY Administration Intake and Output 02/09/21 02/10/21 02/10/21 22:59 06:59 14:59 Output Total 450 Balance -450 Output: Urine 450 Other: Voiding Method Urinal # Voids 1 Weight 54.431 kg 02/09/21 12:02 02/09/21 12:02
--- NOTE | 2021-02-10 13:39 | P.CONS ---
History of Present Illness - Reason for Consult Consult date: 02/10/21 Metastatic Renal Cell Requesting physician: Michael E Sheet - Chief Complaint SOB - History of Present Illness Mr. Mckeon is a pleasant WM, with a long standing history of BPH. He was being followed at the [facility] in [place], and transfered care to Dr. Dodge locally in [place] 2015. On 11/25/[address] AP without contrast done for abdominal pain. This revealed enlargement of the left kidney with possible mass in the superior pole. There was also a possibility of thrombus in the renal vein. MRI on 01/27/16 showed a heterogenous enhancing mass, 3.2 x 3.8 x 3.2 cm in the upper to mid pole level left kidney. There appeared to be a renal vein thrombus. CT chest on 02/29/16 was negative for evidence of metastasis. He had a left nephrectomy at the [facility] in 04/03. Pathology report is not available to us, and the patient states he does not know the type of cancer. He was placed on surveilence and states that his next scan in -or 07/03 showed metastasis to the sternum and the lungs. However he has not been started on treatment yet. He had a follow up scans in 02/01 and was told that there was progression. Due to porximity, he decided to come here for further care. Records were ultimately obtained from the [facility], confirming metastatic RCC. He was started on Votrient in 04/03 He had to decrease his to 50% due to abdominal pain, diarrhea, SCHMIDT and elevated BP. 05/17/17-Pt here today for acute visit, he is having abd pain, started 5 days ago, has been persistent, all over, aching, he has not taken votrient for 2 days now, he thinks the pain in his stomach is less since stopping. He has been nauseated, threw up pepto this AM, little to no oral intake for several days, states "black stool" x 3-4 days, consistency of applesauce, 3-4 episodes a day, foul odor, he denies visible blood, his urine is yellow. He is SOB on exertion, not progressive, SCHMIDT have returned, denies dizziness, palpitations, swelling. He initiallly tolerated the lower dose better, but again developed symptoms ( as above). Stool and urine testing was negative. He was given hydration, and Votrient was held. 06/08/17-Pt resumed votrient 1 week ago, 400mg/day, no missed doses, he is more tired, LUQ soreness, intermittent, he has been trying the antiemetic, no vomi ting, he has lost 10 lbs since starting the drug, no F, oral irritation, SOB or cough, diarrhea, constipation, bleeding, swelling, some dry skin on feet but no open areas. No other physical c/o. 06/27/17- Votrient dose was increased to 600/d 07/11/17- Votrient was increased back to 800 mg/d 08/22/17-patient is seen today for an acute visit, he is experiencing bilateral pedal swelling 2 days, persistent, not progressive, patient denies any pain in the lower extremities, scheduled for bilateral lower extremity Doppler today, he did hold his Votrient yesterday and today, patient's appetite is progressively poor, his tremor is slightly increased, patient in general does not feel very well, he is tired and easily fatigued,denies fevers, sore throat, cough, does get short of breath on exertion, moving slowly, feels weak, no current nausea or vomiting, no abdominal pain or cramping, no current changes in bowel or bladder habits, denies pain. Patient has been taking Votrient 800 mg 3 days, he will then take 600mg x 1 day. As above. Votrient was held at the 08/22/17 visit. Dopplers revealed a left GSV thrombus, not close to the SFJ. His ASA was increased to 325 mg/d. BNP was normal. He had another visit to the ER on 08/31/17 with dopplers negative. He was started on Lasix PO, with improvement. He was started back on Votrient 600 mg/d at his visit on 09/04/17 The pt reported good tolerance till about 12/23/17, when he developed abdominal pain and diarrhea. He stopped the votrient for 2 days with resolution of symptoms, and resumed on 12/26/17. He developed progressive weakness and stopped Votrient again around 03/30/18, with improvement. he resumed it after about 2 weeks. He did not f/u in 07/05 as he says he did not get [facility]. He stopped it again for about 3 week, around late 09/04, due to progressive fatigue. He resumed it subsequently He stopped it for about 10 days in early 01/04. he states he did so as he was feeling overwhelmed due to personal issues, and not due to any specific symptoms. He subsequently resumed it. Since 01/04 he has stopped medication about 4 times, but only for 2-3 days at a time, usually for fatigue and loss of appetite. CT scans in 04.05 showed increase in size of the sternal lesion. However, the pt was off his regimen at the time, and reported progressive decrease in size since resuming. scans in late 2018 showed stability Telemedicine 02/03/20: The patient continues to struggle with side effects related to the medication. Since his visit in 11/07 he has not been able to take 800 mg dose other than for one day. His had to have intermittent dose interruptions because of abdominal cramps nausea and diarrhea. He has been off medication now for the last week due to the same. He has mild dryness of the skin of his feet, and is using moisturizing lotion. no oral ulcers. Appetite is improving, off the medication. He had noted possibly some increase in size of his sternal mass. He denied any f/c/v. His ROS is otherwise as per HPI and negative out of 10. 02/26/20: Tolerating treatment well but new pain intermittent 4/10 with movement and pulling sharp up to 9/10. Lidocain patch on and helping him sleeve. 03/05/20-Pt here today for routine f/u on cabometyx, he has not missed any doses, started around 02/18, he takes with a nausea pill, had some mild diarrhea that has resolved. He was worked up at last visit for right shoulder/chest discomfort. Patient is noted on x-rays to have what looks to be a chronic rotator cuff tear. Patient was in the emergency department 02/28 with complaints of radiating chest pain with numbness on the back of his arms, he was diagnosed with a NSTEMI last week, serial elevated troponins noted, had cardiac cath, no stents needed, medically managed by Cardiology. He has no other c/o on a 14 point ROS. On Last visit the patient was changed to Cabozantinib after his visit in 02/[address] scan had shown mild increase in his sternal mass and the patient had not been able to take Votrient at a full dose consistently. He had been on the medication only for about a week before he had the above-mentioned N STEMI. it is not clear if his medication was related to the MRI, as the patient had other risk factors. However given the VEGF targeting of his regimen, it was decided to change treatment because of his recent artery vascular phenomenon. he just started opdivo on 03/20/20 and is status post 11 cycles. The patient was admitted after cycle 1 with fever. he did not have any definite localizing signs, and infection workup was negative. Clinically, however, he was felt to have an infection as he responded well to antibiotics. he had an ER visit in mid 01/06 for upper abdominal and lower chest pain, that was subsequently determined to be due to GI causes. He denied any fever/chills/nausea/vomiting. He denies any discomfort related to the sternum. bowel movements are now normal. He reports some post void urinary dribbling. Appetite is well maintained. Review of systems otherwise as per HPI and negative out of 10 He also presented to ER again early January and now today 02/10. He presents for near syncopal episode. He admits to not eating and drinking as often as he should. He also complains of severe "bad taste" in mouth and acid reflux likely contributing. He has also experienced periods of incontinence which is new for him. He has not had imaging recently of the brain due to renal function, creatinine 1.9 Review of Systems All systems: negative Constitutional: Reports as per HPI Past Medical History Past Medical History: Cancer, Chest Pain / Angina, GERD/Reflux, Hyperlipidemia, Hypertension, Myocardial Infarction ([place]), Osteoarthritis (OA), Prostate Disorder, Renal Disease Additional Past Medical History / Comment(s): Pt recently admitted to [facility] on 01/13/21 with severe abdominal pain/gastritis/barretts esophagus. Other hx: L renal cancer with nephrectomy/mets L lung and sternum/no longer taking oral chemo d/t it was affecting his kidney/states he took chemo by infusion about 3 weeks ago and will have another cat scan soon, chronic renal failure stage IV, BPH, chronic low back pain, arthritis R great toe. Last Myocardial Infarction Date:: 02/29/20 History of Any Multi-Drug Resistant Organisms: None Reported Past Surgical History: Heart Catheterization, Orthopedic Surgery Additional Past Surgical History / Comment(s): Left nephrectomy 2016, RT HAND 2ND DIGIT LOST TOP OF FINGER IN CRUSHING INJURY, colonoscopy, 2 normal cardiac caths, EGD, colonoscopy, bilateral cataract removals/lens implants. Past Anesthesia/Blood Transfusion Reactions: No Reported Reaction Past Psychological History: Depression Additional Psychological History / Comment(s): Pt resides with his spouse. He is an [employer] . He is independent. 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 Smoking Status: Former smoker Past Alcohol Use History: Occasional Additional Past Alcohol Use History / Comment(s): Pt started smoking in 1960 and quit in the 1970s. Past Drug Use History: Marijuana Additional Drug Use History / Comment(s): Pt uses edible marijuiana on occasion. - Past Family History Father Family Medical History: Cancer, Hypertension, Myocardial Infarction ([place]) Additional Family Medical History / Comment(s): SKIN CANCER Mother Family Medical History: Cancer Additional Family Medical History / Comment(s): breast cancer - throat cancer Sister(s) Family Medical History: Cancer Additional Family Medical History / Comment(s): skin/breast and throat cancer Medications and Allergies Home Medications Medication Instructions Recorded Confirmed Type Metoprolol Tartrate 25 mg PO BID 10/12/17 02/09/21 History Tamsulosin HCl [Flomax] 0.4 mg PO HS 10/12/17 02/09/21 History Aspirin [Adult Low Dose Aspirin EC] 81 mg PO HS 02/29/20 02/09/21 History Clopidogrel [Plavix] 75 mg PO DAILY #90 tab 03/02/20 02/09/21 Rx Diclofenac Sodium [Voltaren Gel] 1 applic TOPICAL BID PRN 03/26/20 02/09/21 History Pravastatin Sodium [Pravachol] 20 mg PO HS 08/28/20 02/09/21 History Ferrous Sulfate [Iron] 325 mg PO DAILY 01/07/21 02/09/21 History Lidocaine 5% Patch [Lidoderm 5% 1 patch TOPICAL DAILY 01/07/21 02/09/21 History Patch] Nitroglycerin Sl Tabs [Nitrostat] 0.4 mg SL Q5M PRN 02/09/21 02/09/21 History Pantoprazole Sodium [Protonix] 20 mg PO DAILY 02/09/21 02/09/21 History Allergies Allergy/AdvReac Type Severity Reaction Status Date / Time atorvastatin calcium Allergy Unknown Verified 02/09/21 11:45 [From Lipitor] clindamycin AdvReac JOINT PAIN Verified 02/09/21 11:45 Physical Exam Vitals: Vital Signs Temp Pulse Pulse Pulse Pulse Pulse Resp 02/10/21 10:20 02/10/21 07:00 98.3 F 71 18 02/10/21 02:00 98.2 F 69 17 02/09/21 20:00 98.7 F 87 82 79 17 02/09/21 17:56 70 20 02/09/21 16:18 64 20 02/09/21 13:44 97.0 F L 60 16 BP BP BP BP BP Pulse Ox 02/10/21 10:20 113/61 02/10/21 07:00 149/82 96 02/10/21 02:00 164/86 98 02/09/21 20:00 157/85 164/81 161/79 97 02/09/21 17:56 169/85 99 02/09/21 16:18 132/64 99 02/09/21 13:44 140/73 97 Intake and Output 02/09/21 02/10/21 02/10/21 22:59 06:59 14:59 Output Total 450 Balance -450 Output: Urine 450 Other: Voiding Method Urinal # Voids 1 Weight 54.431 kg - Constitutional General appearance: average body habitus, no acute distress - EENT Eyes: EOMI, dentition normal ENT: hard of hearing, NA/AT, ORal THrush, Exudates, Erythema - Neck Neck: normal ROM - Respiratory Respiratory: bilateral: CTA (no increased effort) - Cardiovascular Rhythm: regular Heart sounds: normal: S1, S2 - Gastrointestinal General gastrointestinal: normal bowel sounds, soft, tenderness - Integumentary Integumentary: pale - Neurologic Neurologic: CNII-XII intact - Musculoskeletal Musculoskeletal: generalized weakness, strength equal bilaterally - Psychiatric Psychiatric: A&O x's 3, appropriate affect, intact judgment & insight Results CBC & Chem 7: 02/09/21 12:02 02/09/21 12:02 Chest x-ray: report reviewed Assessment and Plan (1) Dehydration Current Visit: Yes Status: Acute Code(s): E86.0 - DEHYDRATION SNOMED Code(s): 76013767 (2) Syncope Current Visit: Yes Status: Acute Code(s): R55 - SYNCOPE AND COLLAPSE SNO MED Code(s): 440307190 (3) Acute non-ST elevation myocardial infarction (NSTEMI) Current Visit: No Status: Acute Code(s): I21.4 - NON-ST ELEVATION (NSTEMI) MYOCARDIAL INFARCTION SNOMED Code(s): 877737708 Plan: Assessment and Recommendations: Renal Cell Carcinoma with metastatic disease to lung and bones: - Currently on immune therapy will resume after discharge if no signs of progression Urinary Incontinence - MRI Brain After improved renal function and hydration Near Syncopal Episodes - Imaging of brain is needed - This may also be related to decreased PO intake/Dehydration - Cardiology Following Oral Thrush - Nystatin started GERD-Like Symptoms - PPI Dehydration - Re-Hydrate Decreased PO Intake Physician Attest: I have completed the full history and physical and agree with above dictation, dictated as a scribe.
[2021-02-10 15:28] VITALS: BMI 19.3
--- NOTE | 2021-02-10 16:58 | P.HPIM ---
History of Present Illness This is a pleasant 80 years old male with past medical history of hypertension, hyperlipidemia, GERD, coronary artery disease. 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 Last chem otherapy was about [address] Mcneal, benign prostatic hypertrophy, chronic low back pain. He is a patient of Dr. 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 However patient states that when this resolved he noticed he wanted himself with urine, however he says this is not uncommon for him to happen to him like every 4-6 months he has such an episode, for example last time he was driving when he passed urine on himself. Patient denies any tremor, no shakiness, no tongue biting, no stool incontinence. Patient also says he has an acid reflux for about one 0.5 months and that recently he had EGD showing SFA is diseased but now he feels better, before his symptoms would last for 2-3 minutes but currently only for a half minutes when he eats. He says that his appetite wasn't good lately as well. Patient looks dehydrated. CBC is unremarkable, INR is normal Creatinine is 1.9 which is at baseline, sodium 102, rest of BMP, never enzymes and magnesium are unremarkable. Troponin is negative less than 0.012. Nitro Urine analysis is not suspicious of infection. Coronary virus not detected. Vitals are stable, patient is afebrile and postural vitals are negative Chest x-ray: No acute process. EKG showing sinus bradycardia at [address]-T changes. QTC is 447. In the emergency room patient was started on normal saline at 75 unit per hour after a liter of normal saline plus Review of Systems CONSTITUTIONAL: No fever, no malaise, no fatigue. HEENT: No recent visual problems or hearing problems. Denied any sore throat. CARDIOVASCULAR: No orthopnea, PND, no palpitations, no syncope. PULMONARY: No shortness of breath, no cough, no hemoptysis. GASTROINTESTINAL: No diarrhea, no nausea, no vomiting, no abdominal pain. Normoactive bowel sounds. NEUROLOGICAL: No headaches, no weakness, no numbness. HEMATOLOGICAL: Denies any bleeding or petechiae. GENITOURINARY: Denies any burning micturition, frequency, or urgency. MUSCULOSKELETAL/RHEUMATOLOGICAL: Denies any joint pain, swelling, or any muscle pain. ENDOCRINE: Denies any polyuria or polydipsia. Past Medical History Past Medical History: Cancer, Chest Pain / Angina, GERD/Reflux, Hyperlipidemia, Hypertension, Myocardial Infarction (ID), Osteoarthritis (OA), Prostate Disorder, Renal Disease Additional Past Medical History / Comment(s): Pt recently admitted to [facility] on 01/13/21 with severe abdominal pain/gastritis/barretts esophagus. Other hx: L renal cancer with nephrectomy/mets L lung and sternum/no longer taking oral chemo d/t it was affecting his kidney/states he took chemo by infusion about 3 weeks ago and will have another cat scan soon, chronic renal failure stage IV, BPH, chronic low back pain, arthritis R great toe. Last Myocardial Infarction Date:: 02/29/20 History of Any Multi-Drug Resistant Organisms: None Reported Past Surgical History: Heart Catheterization, Orthopedic Surgery Additional Past Surgical History / Comment(s): Left nephrectomy 2016, RT HAND 2ND DIGIT LOST TOP OF FINGER IN CRUSHING INJURY, colonoscopy, 2 normal cardiac caths, EGD, colonoscopy, bilateral cataract removals/lens implants. Past Anesthesia/Blood Transfusion Reactions: No Reported Reaction Past Psychological History: Depression Additional Psychological History / Comment(s): Pt resides with his spouse. He is an [employer] . He is independent. 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 Smoking Status: Former smoker Past Alcohol Use History: Occasional Additional Past Alcohol Use History / Comment(s): Pt started smoking in 1960 and quit in the 1970s. Past Drug Use History: Marijuana Additional Drug Use History / Comment(s): Pt uses edible marijuiana on occasion. - Past Family History Father Family Medical History: Cancer, Hypertension, Myocardial Infarction (ID) Additional Family Medical History / Comment(s): SKIN CANCER Mother Family Medical History: Cancer Additional Family Medical History / Comment(s): breast cancer - throat cancer Sister(s) Family Medical History: Cancer Additional Family Medical History / Comment(s): skin/breast and throat cancer Medications and Allergies Home Medications Medication Instructions Recorded Confirmed Type Metoprolol Tartrate 25 mg PO BID 10/12/17 02/09/21 History Tamsulosin HCl [Flomax] 0.4 mg PO HS 10/12/17 02/09/21 History Aspirin [Adult Low Dose Aspirin EC] 81 mg PO HS 02/29/20 02/09/21 History Clopidogrel [Plavix] 75 mg PO DAILY #90 tab 03/02/20 02/09/21 Rx Diclofenac Sodium [Voltaren Gel] 1 applic TOPICAL BID PRN 03/26/20 02/09/21 History Pravastatin Sodium [Pravachol] 20 mg PO HS 08/28/20 02/09/21 History Ferrous Sulfate [Iron] 325 mg PO DAILY 01/07/21 02/09/21 History Lidocaine 5% Patch [Lidoderm 5% 1 patch TOPICAL DAILY 01/07/21 02/09/21 History Patch] Nitroglycerin Sl Tabs [Nitrostat] 0.4 mg SL Q5M PRN 02/09/21 02/09/21 History Pantoprazole Sodium [Protonix] 20 mg PO DAILY 02/09/21 02/09/21 History Allergies Allergy/AdvReac Type Severity Reaction Status Date / Time atorvastatin calcium Allergy Unknown Verified 02/09/21 11:45 [From Lipitor] clindamycin AdvReac JOINT PAIN Verified 02/09/21 11:45 Physical Exam Vitals: Vital Signs Temp Pulse Pulse Pulse Pulse Pulse Resp 02/10/21 02:00 98.2 F 69 17 02/09/21 20:00 98.7 F 87 82 79 17 02/09/21 17:56 70 20 02/09/21 16:18 64 20 02/09/21 13:44 97.0 F L 60 16 02/09/21 11:41 97.8 F 62 18 BP BP BP BP BP Pulse Ox 02/10/21 02:00 164/86 98 02/09/21 20:00 157/85 164/81 161/79 97 02/09/21 17:56 169/85 99 02/09/21 16:18 132/64 99 02/09/21 13:44 140/73 97 02/09/21 11:41 95/60 98 Intake and Output 02/09/21 02/09/21 02/10/21 14:59 22:59 06:59 Output Total 450 Balance -450 Output: Urine 450 Other: Voiding Method Urinal # Voids 1 Weight 54.431 kg 54.431 kg GENERAL: The patient is alert and oriented x3, not in any acute distress. Well developed, well nourished. HEENT: Pupils are round and equally reacting to light. EOMI. No scleral icterus. No conjunctival pallor. Normocephalic, atraumatic. No pharyngeal erythema. No thyromegaly. CARDIOVASCULAR: S1 and S2 present. No murmurs, rubs, or gallops. PULMONARY: Chest is clear to auscultation, no wheezing or crackles. ABDOMEN: Soft, nontender, nondistended, normoactive bowel sounds. No palpable organomegaly. MUSCULOSKELETAL: No joint swelling or deformity. EXTREMITIES: No cyanosis, clubbing, or pedal edema. NEUROLOGICAL: Gross neurological examination did not reveal any focal deficits. SKIN: No rashes. No petechiae Results CBC & Chem 7: 02/09/21 12:02 02/09/21 12:02 Labs: Abnormal Lab Results - Last 24 Hours (Table) 02/09/21 02/09/21 02/09/21 Range/Units 12:02 12:02 12:03 RBC 4.16 L (4.30-5.90) m/uL Hct 36.9 L (39.0-53.0) % Sodium 132 L (137-145) mmol/L BUN 29 H (9-20) mg/dL Creatinine 1.90 H (0.66-1.25) mg/dL Glucose 122 H (74-99) mg/dL POC Glucose (mg/dL) 131 H (75-99) mg/dL Urine Protein (Negative) Urine Ketones (Negative) 02/09/21 Range/Units 13:19 RBC (4.30-5.90) m/uL Hct (39.0-53.0) % Sodium (137-145) mmol/L BUN (9-20) mg/dL Creatinine (0.66-1.25) mg/dL Glucose (74-99) mg/dL POC Glucose (mg/dL) (75-99) mg/dL Urine Protein Trace H (Negative) Urine Ketones 1+ H (Negative) Thrombosis Risk Factor Assmnt - Choose All That Apply Any of the Below Risk Factors Present?: Yes Other Risk Factors: Yes Each Risk Factor Represents 2 Points: Malignancy Each Risk Factor Represents 3 Points: Age 75 years or older Other congenital or acquired thrombophilia - If yes, enter type in comment: No Thrombosis Risk Factor Assessment Total Risk Factor Score: 5 Thrombosis Risk Factor Assessment Level: High Risk Assessment and Plan Assessment: This is a pleasant 80 years old male who presents with presyncope episodes. cardiology consult recommended one more day of telemetry monitoring Consult oncology service Labs and medication were reviewed.. Continue same treatment. Continue with symptomatic treatment. Resume home medication. Monitor lytes and vitals. DVT and GI prophylaxis. Further recommendations depends on the clinical course of the patient DVT prophylaxis: Subcutaneous heparin GI Prophylaxis: Pepcid PT/OT: Pending Prognosis is guarded Plan: Syncopal/presyncope, most likely was a vagal, rule out cardiac causes Left nephrectomy for history of left kidney cancer And S/P chemotherapy Chronic kidney disease, stage III Hypertension Hyperlipidemia History of GERD History of coronary artery disease (a prostatic hypertrophy Chronic low back pain
[2021-02-10] MEDS: ASPIRIN 81 MG PO SCH (19:51)
[2021-02-10] MEDS: PRAVASTATIN SODIUM 20 MG TAB PO SCH (19:52)
[2021-02-10] MEDS: NYSTATIN 100,000 UNIT/ML SUSP 500,000 UNIT/5 ML CUP PO SCH (19:52)
[2021-02-10] MEDS: TAMSULOSIN 0.4 MG CAP.ER.24H PO SCH (19:52)
[2021-02-11] MEDS: METOPROLOL TARTRATE 25 MG TAB PO SCH ×2 (09:02→20:51)
[2021-02-11] MEDS: PANTOPRAZOLE 40 MG TABLET PO SCH ×2 (09:02→17:28)
[2021-02-11] MEDS: CLOPIDOGREL 75 MG TAB PO SCH (09:03)
[2021-02-11] MEDS: NYSTATIN 100,000 UNIT/ML SUSP 500,000 UNIT/5 ML CUP PO SCH ×4 (09:03→20:52)
[2021-02-11] MEDS: LIDOCAINE 5% PATCH TOPICAL SCH (09:03)
[2021-02-11] MEDS: FERROUS SULFATE 325 MG TAB PO SCH (09:03)
[2021-02-11 09:49] LABS: Basophils # (A) 0.07 X 10*3/uL (0.00-0.10); Basophils % (A) 1.2 %; Eosinophils # (A) 0.35 X 10*3/uL (0.04-0.35); Eosinophils % (A) 5.9 %; HCT 37.6 % (39.6-50.0); HGB 12.3 g/dL (13.0-17.0); Lymphocytes # (A) 1.62 X 10*3/uL (0.90-5.00); Lymphocytes % (A) 27.4 %; MCHC 32.7 g/dL (32.0-37.0); MCV 91.7 fL (80.0-97.0); Mean Platelet Volume 10.8 fL (9.5-12.2); Monocytes % (A) 11.8 %; Neutrophils # (A) 3.17 X 10*3/uL (1.80-7.70); Neutrophils % (A) 53.5 %; Platelet Count 284 X 10*3/uL (140-440); RDW 14.9 % (11.5-14.5); WBC 5.92 X 10*3/uL (4.50-10.00)
--- NOTE | 2021-02-11 09:58 | NM ---
EXAMINATION TYPE: NM pul vent and perfuse DATE OF EXAM: 02/11/2021 COMPARISON: Chest x-ray 02/09/2021, prior pulmonary ventilation/perfusion scan 06/06/2016 HISTORY: Cough, vertigo, syncope, history lung cancer TECHNIQUE: Utilizing inhalation of 36.5 mCi Tc 99m DTPA aerosol and intravenous injection of 5.2 mCi of Tc 99m MAA, ventilation and perfusion images are acquired post injection in multiple projections. FINDINGS: On the LPO images pleural-based area of decreased uptake is noted at the level superior segment of th e left lower lobe on ventilation and perfusion imaging. There is no evidence of mismatched defects. S ome central clumping of the radiopharmaceutical on ventilation images suggests underlying COPD. Exam is essentially stable. IMPRESSION: No chest x-ray performed within 24 hours. Findings thought likely to represent low probability for pu lmonary embolism.
[2021-02-11 11:21] LABS: African American GFR (CKD) 46.8 (60.0-200.0); Albumin 3.6 g/dL (3.80-4.90); Albumin/Globulin Ratio 1.57 (1.60-3.17); Anion Gap 10.6 mmol/L (4.00-12.00); BUN/Creat Ratio 11.88 Ratio (12.00-20.00); Carbon Dioxide 22.4 mmol/L (21.6-31.8); Globulin 2.3 g/dL (1.6-3.3); Non-African American GFR(CKD) 40.4 (60.0-200.0); Potassium 4.5 mmol/L (3.5-5.5); Total Bilirubin 0.3 mg/dL (0.2-1.2); Total Protein 5.9 g/dL (6.2-8.2)
--- NOTE | 2021-02-11 14:08 | P.PN ---
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 Mcneal. He does receive chemotherapy. The follows in the office with Dr. Sultana. We have been asked to see in consultation for pre-syncope. Patient states around 9:30am-10:00, he started to experience lightheadedness. 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 He did work outside while it was warm out and he began to fell lightheaded he called out to his partner who brought a chair over. He woke up to everyone around him, told he passed out. He states he did not eat breakfast yesterday morning. He denied chest pain, shortness of breath, palpitations, nausea, diaphoresis. EKG revealed sinus bradycardia, heart rate 59, T wave inversion in leads aVL and V2, no significant ST segment abnormalities. Prior EKG in 01/13/2021 sinus rhythm HR 60, T wave inversions in leads aVL, V2-V5. Telemetry tracings sinus mechanism, no significant bradycardia or arrythmia noted. Patient started on IV fluids. Home medications were restarted. In January 07 2021 patient presented to the emergency department, with 4-6 episodes of burning abdominal/epigastric pain. Pain resolved and was atypical epigastric pain are likely related to GI source. His troponins were negative 3. At that time patient did have new T wave inversions in the anterior lateral leads. Ranexa was started. Protonix was also started. Echocardiogram was performed and showed an ejection fraction of 50-55% with no wall motion abnormalities, mild MR, moderate pulmonic regurgitation mild to moderate AI, mild TR. At that time patient is not a candidate for coronary angiography, due to renal function. Patient came back to the hospital 01/13/21, with similar complaints of chest pain. Lexiscan stress test was performed and it was negative for reversible ischemia DIAGNOSTICS Chest xray negative for an acute cardiopulmonary process. 02/2020:He underwent cardiac catheterization secondary to mild troponin elevation revealing 20-30% plaque of the proximal LAD, an area of stenosis at the takeoff of the second diagonal branch 40-50%, OM branch of the circumflex with a 20-30% plaque in mid intimal disease of the RCA 20%. 02/11/2021: Patient seen and examined at bedside, no acute distress. No more episodes of syncope. He denies chest pain, lightheadedness, dizziness. Telemetry reviewed, patient in sinus rhythm, heart rate 60 to 70s, no arrhythmia or ectopy noted. Laboratory data reviewed, WBC 5.9, hemoglobin 12.3, platelets 284, sodium 137, potassium 4.5, serum creatinine 1.6, BUN 19 PHYSICAL EXAMINATION Blood pressure heart rate afebrile and maintaining oxygen saturation on room air. CONSTITUTIONAL: No apparent distress. HEENT: Head is normocephalic. No JVD. No carotid bruit. CHEST EXAMINATION: Lungs are clear to auscultation. No chest wall tenderness is noted on palpation or with deep breathing. HEART EXAMINATION: Regular rate and rhythm. S1, S2 heard., gallops or rub. ABDOMEN: Soft, nontender. Positive bowel sounds. EXTREMITIES: 2+ peripheral pulses, no lower extremity edema and no calf tenderness. NEUROLOGIC EXAMINATION: Patient is awake, alert and oriented x3. ASSESSMENT Syncope, most likely vasovagal Hypertension Acute on Chronic kidney disease s/p left nephrectomy Renal carcinoma Dyslipidemia Former nicotine dependence PLAN -Manual blood pressures taken, 115/60, 113/61 -Will continue patient's home metoprolol tartrate 25mg BID -Patient not on ACEI/ARB due to kidney function -No need to repeat echocardiogram with recent one last month -Discontinue patient's Imdur and Ranexa -No significant findings on telemetry. -From cardiology perspective, patient can be discharged home and follow up with Dr. Sultana Nurse Practitioner note has been reviewed, I agree with a documented findings and plan of care. Patient was seen and examinsodium Objective - Vital Signs Vital signs: Vital Signs Temp 98.8 F 02/11/21 07:00 Pulse 65 02/11/21 07:00 Resp 18 02/11/21 09:13 BP 154/74 02/11/21 07:00 Pulse Ox 98 02/11/21 07:00 Intake & Output 02/10/21 02/11/21 02/11/21 18:59 06:59 18:59 Output Total 900 1000 400 Balance -900 -1000 -400 Weight 54.431 kg Output: Urine 900 1000 400 Other: Voiding Method Urinal # Voids 2 - Labs CBC & Chem 7: 02/11/21 05:38 02/11/21 05:38 Labs: Abnormal Lab Results - Last 24 Hours (Table) 02/11/21 02/11/21 Range/Units 05:38 05:38 RBC 4.10 L (4.40-5.60) X 10*6/uL Hgb 12.3 L (13.0-17.0) g/dL Hct 37.6 L (39.6-50.0) % RDW 14.9 H (11.5-14.5) % Creatinine 1.6 H (0.6-1.5) mg/dL Est GFR (CKD-EPI)AfAm 46.8 L (60.0-200.0) Est GFR (CKD-EPI)NonAf 40.4 L (60.0-200.0) BUN/Creatinine Ratio 11.88 L (12.00-20.00) Ratio Total Protein 5.9 L (6.2-8.2) g/dL Albumin 3.60 L (3.80-4.90) g/dL Albumin/Globulin Ratio 1.57 L (1.60-3.17) g/dL
[2021-02-11] MEDS ORDERED: amLODIPine 5 MG TAB PO SCH (14:30)
[2021-02-11] MEDS: hydrALAZINE HCL 25 MG TAB PO SCH ×2 (17:28→20:51)
--- NOTE | 2021-02-11 19:50 | P.PN ---
Subjective Progress Note Date: 02/11/21 Renal function improved, MRI ordered. Discussed with primary and would like to discharge ok for outpatient Objective - Vital Signs Vital signs: Vital Signs Temp 99.0 F 02/11/21 14:34 Pulse 66 02/11/21 14:34 Resp 18 02/11/21 14:34 BP 178/82 02/11/21 15:46 Pulse Ox 97 02/11/21 14:34 Intake & Output 02/11/21 02/11/21 02/12/21 06:59 18:59 06:59 Output Total 1000 700 Balance -1000 -700 Output: Urine 1000 700 Other: Voiding Method Urinal # Voids 2 - Exam - Constitutional General appearance: average body habitus, no acute distress - EENT Eyes: EOMI, dentition normal ENT: hard of hearing, NA/AT, ORal THrush, Exudates, Erythema - Neck Neck: normal ROM - Respiratory Respiratory: bilateral: CTA (no increased effort) - Cardiovascular Rhythm: regular Heart sounds: normal: S1, S2 - Gastrointestinal General gastrointestinal: normal bowel sounds, soft, tenderness - Integumentary Integumentary: pale - Neurologic Neurologic: CNII-XII intact - Musculoskeletal Musculoskeletal: generalized weakness, strength equal bilaterally - Psychiatric Psychiatric: A&O x's 3, appropriate affect, intact judgment & insight - Labs CBC & Chem 7: 02/11/21 05:38 02/11/21 05:38 Labs: Abnormal Lab Results - Last 24 Hours (Table) 02/11/21 02/11/21 Range/Units 05:38 05:38 RBC 4.10 L (4.40-5.60) X 10*6/uL Hgb 12.3 L (13.0-17.0) g/dL Hct 37.6 L (39.6-50.0) % RDW 14.9 H (11.5-14.5) % Creatinine 1.6 H (0.6-1.5) mg/dL Est GFR (CKD-EPI)AfAm 46.8 L (60.0-200.0) Est GFR (CKD-EPI)NonAf 40.4 L (60.0-200.0) BUN/Creatinine Ratio 11.88 L (12.00-20.00) Ratio Total Protein 5.9 L (6.2-8.2) g/dL Albumin 3.60 L (3.80-4.90) g/dL Albumin/Globulin Ratio 1.57 L (1.60-3.17) g/dL Assessment and Plan (1) Dehydration Current Visit: Yes Status: Acute Code(s): E86.0 - DEHYDRATION SNOMED Code(s): 07130048 (2) Syncope Current Visit: Yes Status: Acute Code(s): R55 - SYNCOPE AND COLLAPSE SNOMED Code(s): 257978833 (3) Acute non-ST elevation myocardial infarction (NSTEMI) Current Visit: No Status: Acute Code(s): I21.4 - NON-ST ELEVATION (NSTEMI) MYOCARDIAL INFARCTION SNOMED Code(s): 452156048 Plan: Assessment and Recommendations: 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
[2021-02-11] MEDS: ASPIRIN 81 MG PO SCH (20:51)
[2021-02-11] MEDS: TAMSULOSIN 0.4 MG CAP.ER.24H PO SCH (20:52)
[2021-02-11] MEDS: PRAVASTATIN SODIUM 20 MG TAB PO SCH (20:52)
--- NOTE | 2021-02-11 22:58 | P.PN ---
Subjective This is a pleasant 80 years old male with past medical history of hypertension, hyperlipidemia, GERD, coronary artery disease. 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 Last chemotherapy was about [address] Mcneal, benign prostatic hypertrophy, chronic low back pain. He is a patient of Dr. 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 However patient states that when this resolved he noticed he wanted himself with urine, however he says this is not uncommon for him to happen to him like every 4-6 months he has such an episode, for example last time he was driving when he passed urine on himself. Patient denies any tremor, no shakiness, no tongue biting, no stool incontinence. Patient also says he has an acid reflux for about one 0.5 months and that recently he had EGD showing SFA is diseased but now he feels better, before his symptoms would last for 2-3 minutes but currently only for a half minutes when he eats. He says that his appetite wasn't good lately as well. Patient looks dehydrated. CBC is unremarkable, INR is normal Creatinine is 1.9 which is at baseline, sodium 102, rest of BMP, never enzymes and magnesium are unremarkable. Troponin is negative less than 0.012. Nitro Urine analysis is not suspicious of infection. Coronary virus not detected. Vitals are stable, patient is afebrile and postural vitals are negative Chest x-ray: No acute process. EKG showing sinus bradycardia at [address]-T changes. QTC is 447. In the emergency room patient was started on normal saline at 75 unit per hour after a liter of normal saline plus 02/11/2021 Patient awake and alert, no more dizziness or presyncope symptoms, no sweating or hyper flushes. Also no other symptoms as she denies chest pain or dyspnea. His burning sensation while eating is improved after started on Protonix twice daily. Patient nevertheless is advised to follow up with GI team as an outpatient and he agrees. Patient is monitored closely on telemetry by senior php developer team and cleared by them for discharge Patient could not be discharged today because of uncontrolled hypertension and hypertensive urgency, hydralazine 25 mg and amlodipine 5 mg added that with close monitoring of blood pressure Objective - Vital Signs Vital signs: Vital Signs Temp 99.3 F 02/11/21 20:53 Pulse 74 02/11/21 20:53 Resp 18 02/11/21 20:53 BP 167/88 02/11/21 20:53 Pulse Ox 98 02/11/21 20:53 Intake & Output 02/11/21 02/11/21 02/12/21 06:59 18:59 06:59 Output Total 1000 700 Balance -1000 -700 Output: Urine 1000 700 Other: Voiding Method Urinal # Voids 2 - Exam GENERAL: The patient is alert and oriented x3, not in any acute distress. Well developed, well nourished. HEENT: Pupils are round and equally reacting to light. EOMI. No scleral icterus. No conjunctival pallor. Normocephalic, atraumatic. No pharyngeal erythema. No thyromegaly. CARDIOVASCULAR: S1 and S2 present. No murmurs, rubs, or gallops. PULMONARY: Chest is clear to auscultation, no wheezing or crackles. ABDOMEN: Soft, nontender, nondistended, normoactive bowel sounds. No palpable organomegaly. MUSCULOSKELETAL: No joint swelling or deformity. EXTREMITIES: No cyanosis, clubbing, or pedal edema. NEUROLOGICAL: Gross neurological examination did not reveal any focal deficits. SKIN: No rashes. no petechiae. - Labs CBC & Chem 7: 02/11/21 05:38 02/11/21 05:38 Labs: Abnormal Lab Results - Last 24 Hours (Table) 02/11/21 02/11/21 Range/Units 05:38 05:38 RBC 4.10 L (4.40-5.60) X 10*6/uL Hgb 12.3 L (13.0-17.0) g/dL Hct 37.6 L (39.6-50.0) % RDW 14.9 H (11.5-14.5) % Creatinine 1.6 H (0.6-1.5) mg/dL Est GFR (CKD-EPI)AfAm 46.8 L (60.0-200.0) Est GFR (CKD-EPI)NonAf 40.4 L (60.0-200.0) BUN/Creatinine Ratio 11.88 L (12.00-20.00) Ratio Total Protein 5.9 L (6.2-8.2) g/dL Albumin 3.60 L (3.80-4.90) g/dL Albumin/Globulin Ratio 1.57 L (1.60-3.17) g/dL Assessment and Plan Assessment: This is a pleasant 80 years old male who presents with presyncope episodes. Now also with hypertensive urgency. Cleared by cardiology team for discharge Add hydralazine and amlodipine and monitor blood pressure Consult oncology service. They're okay to continue workup like MRI of the brain as an outpatient Labs and medication were reviewed.. Continue same treatment. Continue with symptomatic treatment. Resume home medication. Monitor lytes and vitals. DVT and GI prophylaxis. Further recommendations depends on the clinical course of the patient DVT prophylaxis: Subcutaneous heparin GI Prophylaxis: Pepcid PT/OT: Pending Prognosis is guarded Plan: Syncopal/presyncope, most likely was a vagal, rule out cardiac causes Left nephrectomy for history of left kidney cancer And S/P chemotherapy Chronic kidney disease, stage III Hypertension Hyperlipidemia History of GERD History of coronary artery disease (a prostatic hypertrophy Chronic low back pain
[2021-02-12] MEDS ORDERED: hydrALAZINE HCL 25 MG TAB PO SCH ×2 (09:00→21:00)
[2021-02-12] MEDS: FERROUS SULFATE 325 MG TAB PO SCH (09:01)
[2021-02-12] MEDS: CLOPIDOGREL 75 MG TAB PO SCH (09:01)
[2021-02-12] MEDS: PANTOPRAZOLE 40 MG TABLET PO SCH (09:01)
[2021-02-12] MEDS: LIDOCAINE 5% PATCH TOPICAL SCH (09:02)
[2021-02-12] MEDS: METOPROLOL TARTRATE 25 MG TAB PO SCH (09:02)
[2021-02-12] MEDS: NYSTATIN 100,000 UNIT/ML SUSP 500,000 UNIT/5 ML CUP PO SCH ×2 (09:02→13:09)
[2021-02-12 10:55] LABS: African American GFR (CKD) 45 (>60 ml/min/1.73 sqM); Anion Gap 6 mmol/L; Blood Urea Nitrogen 18 mg/dL (9-20); Calcium 9.2 mg/dL (8.4-10.2); Carbon Dioxide 25 mmol/L (22-30); Chloride 105 mmol/L (98-107); Glucose 97 mg/dL (74-99); Non-African American GFR(CKD) 39 (>60 ml/min/1.73 sqM); Potassium 4.3 mmol/L (3.5-5.1); Sodium 136 mmol/L (137-145)
--- NOTE | 2021-02-12 11:49 | P.PN ---
Subjective Patient is resting comfortably in bed. No chest discomfort dizziness lightheadedness or palpitations Normal heart sounds are normal S1 normal S2 no murmurs gallop or rub Abdomen soft nontender External days warm no edema The blood pressure is elevated. He was initially given oral hydralazine past his admitting physician to go back to amlodipine 5 g by mouth daily Impression Abdominal discomfort Normal cardiac enzymes normal 2-D echo with preserved LV systolic function Lexiscan did not show any reversible ischemia Elevated blood pressure readings Plan Amlodipine to be added to his current regimen The patient may go home and follow up with his primary investment banker Objective - Vital Signs Vital signs: Vital Signs Temp 98.2 F 02/12/21 07:00 Pulse 69 02/12/21 07:00 Resp 17 02/12/21 07:00 BP 128/76 02/12/21 07:00 Pulse Ox 98 02/12/21 07:00 Intake & Output 02/11/21 02/12/21 02/12/21 18:59 06:59 18:59 Intake Total 100 Output Total 700 300 925 Balance -316 -300 -523 Intake: Oral 100 Output: Urine 700 300 925 Other: Voiding Method Urinal # Voids 2 - Labs CBC & Chem 7: 02/11/21 05:38 02/12/21 10:17 Labs: Abnormal Lab Results - Last 24 Hours (Table) 02/12/21 Range/Units 10:17 Sodium 136 L (137-145) mmol/L Creatinine 1.64 H (0.66-1.25) mg/dL
[2021-02-12 12:08] VITALS: PULSE 66
[2021-02-12 15:18] VITALS: BP 168/80; RESP 17; TEMP 98.3
--- NOTE | 2021-02-12 16:42 | P.PN ---
Subjective Progress Note Date: 02/12/21 Patient is anxious for discharge today. Objective - Vital Signs Vital signs: Vital Signs Temp 98.3 F 02/12/21 15:00 Pulse 66 02/12/21 15:00 Resp 17 02/12/21 15:00 BP 168/80 02/12/21 15:00 Pulse Ox 98 02/12/21 15:00 Intake & Output 02/11/21 02/12/21 02/12/21 18:59 06:59 18:59 Intake Total 100 Output Total 782 792 7609 Balance -700 -300 -1075 Weight 54.431 kg Intake: Oral 100 Output: Urine 752 890 5171 Other: Voiding Method Urinal # Voids 2 0 - Exam - Constitutional General appearance: average body habitus, no acute distress - EENT Eyes: EOMI, dentition normal ENT: hard of hearing, NA/AT, ORal THrush, Exudates, Erythema - Neck Neck: normal ROM - Respiratory Respiratory: bilateral: CTA (no increased effort) - Cardiovascular Rhythm: regular Heart sounds: normal: S1, S2 - Gastrointestinal General gastrointestinal: normal bowel sounds, soft, tenderness - Integumentary Integumentary: pale - Neurologic Neurologic: CNII-XII intact - Musculoskeletal Musculoskeletal: generalized weakness, strength equal bilaterally - Psychiatric Psychiatric: A&O x's 3, appropriate affect, intact judgment & insight - Labs CBC & Chem 7: 02/11/21 05:38 02/12/21 10:17 Labs: Abnormal Lab Results - Last 24 Hours (Table) 02/12/21 Range/Units 10:17 Sodium 136 L (137-145) mmol/L Creatinine 1.64 H (0.66-1.25) mg/dL Assessment and Plan (1) Dehydration Status: Acute Code(s): E86.0 - DEHYDRATION SNOMED Code(s): 29072515 (2) Syncope Status: Acute Code(s): R55 - SYNCOPE AND COLLAPSE SNOMED Code(s): 746649823 (3) Acute non-ST elevation myocardial infarction (NSTEMI) Status: Acute Code(s): I21.4 - NON-ST ELEVATION (NSTEMI) MYOCARDIAL INFARCTION SNOMED Code(s): 964450150 Plan: Assessment and Recommendations: 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
[2021-02-12] MEDS ORDERED: amLODIPine 5 MG TAB PO SCH (21:00)
--- NOTE | 2021-02-14 15:06 | P.DS ---
Providers Date of admission: 02/09/21 13:55 Attending physician: Valorie Terry Consults: 02/09/21 13:57 Consult Physician Routine Consulting Provider: Javi Sultana Consult Reason/Comments: syncopal episode Do you want consulting provider notified?: Yes 02/10/21 09:13 Consult Physician Routine Consulting Provider: Amador Mcneal Consult Reason/Comments: patient of record Do you want consulting provider notified?: Yes Primary care physician: [facility] Hospital Course: Diagnoses: Syncopal/presyncope, most likely was a vagal, cardiac causes were ruled out by scout executive. Status post Left nephrectomy for history of left kidney cancer And S/P current chemotherapy with Chronic kidney disease, stage III Hypertension, patient was hypotensive upon presentation Hyperlipidemia History of GERD History of coronary artery disease (a prostatic hypertrophy Chronic low back pain Hospital course: This is a pleasant 80 years old male with past medical history of hypertension, hyperlipidemia, GERD, coronary artery disease. History of left kidney cancer status post nephrectomy with metastasis to the sternum. Last chemotherapy was about [address] Mcneal, benign prostatic hypertrophy, chronic low back pain. He is a patient of Dr. Cordova He presents because of near syncope episode while he was at work. 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 Patient denies chest pain or dyspnea. No abdominal pain. No change in urine or bowel habits. No fever. Patient was cleared for consultants including scout executive and oncologist for discharge. Further oncology workup like MRI of the brain and can be done as an outpatient for oncologist and patient agrees Problems and management plan were discussed with the patient and he verbalized understanding and acceptance Patient was found stable and can be discharged home however he needs follow-up as an outpatient. Patient was instructed to follow up with PCP within one week and patient agrees Patient agrees with the appointments made for him with Dr. Mcneal on 02/[address] Sultana on 02/[address] Peter RAMIRES on 02/23, with Dr. Cordova on 03/09 but also patient states that [facility] Physical exam Gen: patient is a AAOx3, no distress CVS: S1-S2, RRR, no murmur Lungs: B/L CTA, no wheezing Abdomen: soft, no distention, no tenderness, positive bowel sounds Extremity: no leg edema or induration Time spent more than 35 minutes Patient Condition at Discharge: Stable Plan - Discharge Summary Discharge Rx Participant: No New Discharge Prescriptions: New Nystatin 100,000 Unit/ml Susp [Mycostatin Oral Susp] 500,000 unit PO QID #100 ml Pantoprazole [Protonix] 40 mg PO AC-BID #60 tablet. amLODIPine [Norvasc] 5 mg PO BID #60 tab hydrALAZINE HCL [Apresoline] 25 mg PO BID #60 tab Continue Metoprolol Tartrate 25 mg PO BID Tamsulosin HCl [Flomax] 0.4 mg PO HS Aspirin [Adult Low Dose Aspirin EC] 81 mg PO HS Clopidogrel [Plavix] 75 mg PO DAILY #90 tab Diclofenac Sodium [Voltaren Gel] 1 applic TOPICAL BID PRN PRN Reason: Pain Pravastatin Sodium [Pravachol] 20 mg PO HS Lidocaine 5% Patch [Lidoderm 5% Patch] 1 patch TOPICAL DAILY Ferrous Sulfate [Iron] 325 mg PO DAILY Nitroglycerin Sl Tabs [Nitrostat] 0.4 mg SL Q5M PRN PRN Reason: Chest Pain Discontinued Isosorbide Mononitrate ER [Imdur] 30 mg PO DAILY #90 tab.er.24h Ranolazine [Ranexa] 500 mg PO BID Pantoprazole Sodium [Protonix] 20 mg PO DAILY Discharge Medication List Metoprolol Tartrate 25 mg PO BID 10/12/17 [History] Tamsulosin HCl [Flomax] 0.4 mg PO HS 10/12/17 [History] Aspirin [Adult Low Dose Aspirin EC] 81 mg PO HS 02/29/20 [History] Clopidogrel [Plavix] 75 mg PO DAILY #90 tab 03/02/20 [Rx] Diclofenac Sodium [Voltaren Gel] 1 applic TOPICAL BID PRN 03/26/20 [History] Pravastatin Sodium [Pravachol] 20 mg PO HS 08/28/20 [History] Ferrous Sulfate [Iron] 325 mg PO DAILY 01/07/21 [History] Lidocaine 5% Patch [Lidoderm 5% Patch] 1 patch TOPICAL DAILY 01/07/21 [History] Nitroglycerin Sl Tabs [Nitrostat] 0.4 mg SL Q5M PRN 02/09/21 [History] Nystatin 100,000 Unit/ml Susp [Mycostatin Oral Susp] 500,000 unit PO QID #100 ml 02/11/21 [Rx] Pantoprazole [Protonix] 40 mg PO AC-BID #60 tablet. 02/11/21 [Rx] amLODIPine [Norvasc] 5 mg PO BID #60 tab 02/12/21 [Rx] hydrALAZINE HCL [Apresoline] 25 mg PO BID #60 tab 02/12/21 [Rx] Follow up Appointment(s)/Referral(s): Amador Mcneal MD [STAFF PHYSICIAN] - 02/25/21 2:15 pm Javi Sultana MD [STAFF PHYSICIAN] - 02/26/21 11:00 am Eryn Green MD [STAFF PHYSICIAN] - 02/23/21 8:30 am (Dr Rebecca Green [phone] call as needed ) Derrell Cordova DO [Doctor of Osteopathic Medicine] - 03/09/21 2:30 pm (Office has no appointments sooner than 03/09/21. They are going to call the patient if able to get him in . ) Patient Instructions/Handouts: Nystatin (By mouth), Hydralazine (By mouth), Aml odipine (By mouth), Pantoprazole (By mouth), Dehydration (DC), Syncope in Older Adults (DC) Activity/Diet/Wound Care/Special Instructions: Heart healthy diet Activity is restricted until you see your doctor Discharge Disposition: HOME WITH HOME HEALTH SERVICES
== END 2021-02-12 16:00 | disposition home health service (06) ==
LOC: EC 11:35 → 6NMEDSUR 13:55
PROVIDERS: ADMIT Hospitalist; ATTEND Hospitalist
DX: R55 Syncope and collapse (principal); I12.9 Hypertensive chronic kidney disease with stage 1 through stage 4 chronic kidney disease, or unspecified chronic kidney disease; N18.4 Chronic kidney disease, stage 4 (severe); E78.5 Hyperlipidemia, unspecified; K21.9 Gastro-esophageal reflux disease without esophagitis; I25.10 Atherosclerotic heart disease of native coronary artery without angina pectoris; N40.0 Benign prostatic hyperplasia without lower urinary tract symptoms; G89.29 Other chronic pain; M54.5 Low back pain; E86.0 Dehydration; B37.0 Candidal stomatitis; I16.0 Hypertensive urgency; I95.9 Hypotension, unspecified; N17.9 Acute kidney failure, unspecified; C79.51 Secondary malignant neoplasm of bone; C78.00 Secondary malignant neoplasm of unspecified lung; R00.1 Bradycardia, unspecified; I25.2 Old myocardial infarction; R32 Unspecified urinary incontinence; K30 Functional dyspepsia; M19.90 Unspecified osteoarthritis, unspecified site; K22.70 Barrett's esophagus without dysplasia; K29.70 Gastritis, unspecified, without bleeding; F32.9 Major depressive disorder, single episode, unspecified; Z20.822 Contact with and (suspected) exposure to COVID-19; Z85.528 Personal history of other malignant neoplasm of kidney; Z90.5 Acquired absence of kidney; Z92.21 Personal history of antineoplastic chemotherapy; Z87.891 Personal history of nicotine dependence; Z96.1 Presence of intraocular lens; Z79.899 Other long term (current) drug therapy; Z79.02 Long term (current) use of antithrombotics/antiplatelets; Z79.82 Long term (current) use of aspirin; Z88.8 Allergy status to other drugs, medicaments and biological substances; Z88.1 Allergy status to other antibiotic agents; Z82.49 Family history of ischemic heart disease and other diseases of the circulatory system; Z80.8 Family history of malignant neoplasm of other organs or systems; Z80.3 Family history of malignant neoplasm of breast; Z80.1 Family history of malignant neoplasm of trachea, bronchus and lung
CPT/HCPCS: 96376; 96361 ×3; 96374; 99285; 36415; 93005; 83921; 83880; 80053 ×2; 80048; 84443; 82533; 82607; 83735; 84484; 85025 ×2; 85610; 85730; 81003; 82306; 87635; 71046; 78582; G0378 ×4; A9540; A9567; C9113 ×2

== ENCOUNTER 2022-07-04 14:30 | Emergency (ER) | payer OTHER ==
[2022-07-04 15:09] VITALS: BP 118/69; PULSE 57; RESP 20; TEMP 97
--- NOTE | 2022-07-04 15:43 | ED ---
ENT HPI - General Chief complaint: ENT Stated complaint: Sinus Issues Time Seen by Provider: 07/04/22 15:11 Source: patient Mode of arrival: ambulatory Limitations: no limitations - History of Present Illness Initial comments: Patient is an 81-year-old male presenting with chief complaint of sinus pain. Patient has had sinus discomfort for several weeks, located primarily on the left side. Patient was initially treated with azithromycin. then switched him to Augmentin, which he has been taking for almost one week with no improvement. Patient admits to some sore throat, no difficulty swallowing or breathing. No eye pain, ear pain, neck pain or stiffness, fever, chills, cough, nausea, vomiting, chest pain, palpitations, weakness, vision or hearing changes, dizziness. - Related Data Home Medications Medication Instructions Recorded Confirmed Metoprolol Tartrate 25 mg PO BID 10/12/17 03/29/21 Tamsulosin HCl [Flomax] 0.4 mg PO HS 10/12/17 03/29/21 Aspirin [Adult Low Dose Aspirin EC] 81 mg PO HS 02/29/20 03/29/21 Pravastatin Sodium [Pravachol] 20 mg PO HS 08/28/20 03/29/21 Previous Rx's Medication Instructions Recorded amLODIPine [Norvasc] 5 mg PO BID #60 tab 02/12/21 Levofloxacin [Levaquin] 750 mg PO DAILY 7 Days #7 tab 07/04/22 Allergies Allergy/AdvReac Type Severity Reaction Status Date / Time atorvastatin calcium Allergy JOINT PAIN Verified 07/04/22 15:09 [From Lipitor] clindamycin AdvReac JOINT PAIN Verified 07/04/22 15:09 Review of Systems ROS Statement: Those systems with pertinent positive or pertinent negative responses have been documented in the HPI. ROS Other: All systems not noted in ROS Statement are negative. Past Medical History Past Medical History: Cancer, Chest Pain / Angina, GERD/Reflux, Hyperlipidemia, Hypertension, Myocardial Infarction ([place]), Osteoarthritis (OA), Prostate Disorder, Renal Disease Additional Past Medical History / Comment(s): Pt recently admitted to [facility] on 01/13/21 with severe abdominal pain/gastritis/barretts esophagus. Other hx: L renal cancer with nephrectomy/mets L lung and sternum/no longer taking oral chemo d/t it was affecting his kidney/states he took chemo by infusion about 3 weeks ago and will have another cat scan soon, chronic renal failure stage IV, BPH, chronic low back pain, arthritis R great toe. Last Myocardial Infarction Date:: 02/29/20 History of Any Multi-Drug Resistant Organisms: None Reported Past Surgical History: Heart Catheterization, Orthopedic Surgery Additional Past Surgical History / Comment(s): Left nephrectomy 2016, RT HAND 2ND DIGIT LOST TOP OF FINGER IN CRUSHING INJURY, colonoscopy, 2 normal cardiac caths, EGD, colonoscopy, bilateral cataract removals/lens implants. PT STATES EGD IN JANUARY 2021 WITH ADMISSION Past Anesthesia/Blood Transfusion Reactions: No Reported Reaction Past Psychological History: Depression Smoking Status: Former smoker Past Alcohol Use History: Rare Past Drug Use History: Marijuana - Past Family History Father Family Medical History: Cancer, Hypertension, Myocardial Infarction ([place]) Additional Family Medical History / Comment(s): SKIN CANCER Mother Family Medical History: Cancer Additional Family Medical History / Comment(s): breast cancer - throat cancer Sister(s) Family Medical History: Cancer Additional Family Medical History / Comment(s): skin/breast and throat cancer General Exam Limitations: no limitations General appearance: alert, in no apparent distress Head exam: Present: atraumatic, normocephalic, normal inspection Eye exam: Present: normal appearance, PERRL, EOMI. Absent: scleral icterus, c onjunctival injection, periorbital swelling ENT exam: Present: normal exam, normal oropharynx, mucous membranes moist, TM's normal bilaterally Neck exam: Present: normal inspection, full ROM. Absent: tenderness Respiratory exam: Present: normal lung sounds bilaterally. Absent: respiratory distress, wheezes, rales, rhonchi, stridor Cardiovascular Exam: Present: regular rate, normal rhythm, normal heart sounds. Absent: systolic murmur, diastolic murmur, rubs, gallop, clicks Neurological exam: Present: alert, oriented X3, CN II-XII intact Psychiatric exam: Present: normal affect, normal mood Skin exam: Present: warm, dry, intact, normal color. Absent: rash Course Vital Signs 07/04/22 15:06 Temperature 97.0 F L Pulse Rate 57 L Respiratory 20 Rate Blood Pressure 118/69 O2 Sat by Pulse 99 Oximetry Medical Decision Making - Medical Decision Making Patient is an 81-year-old male presenting with chief complaint of sinus pain for 3 weeks. Located on the left side, patient has failed treatment with Augmentin. Physical examination is unremarkable. Patient will be switched to Levaquin. Follow-up with PCP. Report back to ER with any new or worsening symptoms. Discussed return parameters and answered all questions. Patient conveyed verbal understanding and agreed to the plan. I discussed this case in detail with my attending Dr. Martínez. Disposition Clinical Impression: Sinusitis Disposition: HOME SELF-CARE Condition: Good Instructions (If sedation given, give patient instructions): Sinusitis (ED) Additional Instructions: Follow-up with PCP. Report back to ER with any new or worsening symptoms. Take medication as prescribed. Prescriptions: Levofloxacin [Levaquin] 750 mg PO DAILY 7 Days #7 tab Is patient prescribed a controlled substance at d/c from ED?: No Referrals: Derrell Cordova DO [Primary Care Provider] - 1-2 days Time of Disposition: 15:43
== END 2022-07-04 16:02 | disposition home or self-care (01) ==
LOC: EC 14:30
DX: J32.9 Chronic sinusitis, unspecified (principal); I12.9 Hypertensive chronic kidney disease with stage 1 through stage 4 chronic kidney disease, or unspecified chronic kidney disease; N18.4 Chronic kidney disease, stage 4 (severe); E78.5 Hyperlipidemia, unspecified; K21.9 Gastro-esophageal reflux disease without esophagitis; I25.2 Old myocardial infarction; Z87.891 Personal history of nicotine dependence; Z88.1 Allergy status to other antibiotic agents; Z88.8 Allergy status to other drugs, medicaments and biological substances; Z79.82 Long term (current) use of aspirin; Z79.899 Other long term (current) drug therapy
CPT/HCPCS: 99283; 99285

== ENCOUNTER 2022-07-10 04:36 | Observation (INO) | payer OTHER ==
--- NOTE | 2022-07-10 06:06 | XR ---
EXAMINATION TYPE: XR chest 2V DATE OF EXAM: 07/10/2022 COMPARISON: Chest x-ray February 09, 2021 HISTORY: Chest pain. TECHNIQUE: Frontal and lateral views of the chest are obtained. FINDINGS: There is some chronic parenchymal changes bilaterally without suspicious focal air space o pacity, pleural effusion, or pneumothorax seen. The cardiac silhouette size is stable and within nor mal limits. The osseous structures are intact. IMPRESSION: No acute process. No significant change from prior.
[2022-07-10 06:31] LABS: Basophils # (A) 0.1 k/uL (0-0.2); Basophils % (A) 1 %; Eosinophils % (A) 13 %; HCT 37.2 % (39.0-53.0); HGB 12.8 gm/dL (13.0-17.5); Lymphocytes # (A) 1.7 k/uL (1.0-4.8); Lymphocytes % (A) 22 %; MCH 31.4 pg (25.0-35.0); MCHC 34.4 g/dL (31.0-37.0); MCV 91.2 fL (80.0-100.0); Mean Platelet Volume 9.1; Monocytes # (A) 0.6 k/uL (0-1.0); Monocytes % (A) 8 %; Neutrophils # (A) 4.1 k/uL (1.3-7.7); Neutrophils % (A) 53 %; Platelet Count 261 k/uL (150-450); RBC 4.08 m/uL (4.30-5.90); RDW 13.4 % (11.5-15.5); WBC 7.7 k/uL (3.8-10.6)
[2022-07-10 06:39] LABS: INR 0.9 (<1.2)
[2022-07-10 06:40] LABS: Partial Thromboplastin Time 25.8 sec (22.0-30.0)
[2022-07-10 06:45] LABS: Albumin 4.1 g/dL (3.5-5.0); Calcium 9.8 mg/dL (8.4-10.2); Magnesium 2.2 mg/dL (1.6-2.3); Potassium 5.1 mmol/L (3.5-5.1); Total Bilirubin 0.4 mg/dL (0.2-1.3); Total Protein 6.6 g/dL (6.3-8.2)
[2022-07-10] MEDS ORDERED: NITROGLYCERIN SL TABS 0.4 MG TAB SUBLINGUAL PRN (07:50)
--- NOTE | 2022-07-10 07:50 | ED ---
Chest Pain HPI - General Chief Complaint: Chest Pain Stated Complaint: Chest Pain Time Seen by Provider: 07/10/22 06:18 Source: patient, RN notes reviewed Mode of arrival: wheelchair Limitations: no limitations - History of Present Illness Initial Comments: 81-year-old male present emergency from chief complaint of chest pain. Patient states he's had some on-and-off symptoms but is getting worse. Patient states this pressure pain in his chest. Patient has not short of breath he does have hypertension, hyperlipidemia. Patient states he was recently treated for upper respiratory infection. Patient denies any leg pain leg swelling no prior PE or DVT. Patient offers no other associated complaints. - Related Data Home Medications Medication Instructions Recorded Confirmed Metoprolol Tartrate 25 mg PO BID 10/12/17 03/29/21 Tamsulosin HCl [Flomax] 0.4 mg PO HS 10/12/17 03/29/21 Aspirin [Adult Low Dose Aspirin EC] 81 mg PO HS 02/29/20 03/29/21 Pravastatin Sodium [Pravachol] 20 mg PO HS 08/28/20 03/29/21 Previous Rx's Medication Instructions Recorded amLODIPine [Norvasc] 5 mg PO BID #60 tab 02/12/21 Levofloxacin [Levaquin] 750 mg PO DAILY 7 Days #7 tab 07/04/22 Allergies Allergy/AdvReac Type Severity Reaction Status Date / Time atorvastatin calcium Allergy JOINT PAIN Verified 07/10/22 04:43 [From Lipitor] clindamycin AdvReac JOINT PAIN Verified 07/10/22 04:43 Review of Systems ROS Statement: Those systems with pertinent positive or pertinent negative responses have been documented in the HPI. ROS Other: All systems not noted in ROS Statement are negative. Past Medical History Past Medical History: Coronary Artery Disease (CAD), Cancer, Chest Pain / Angina, GERD/Reflux, Hyperlipidemia, Hypertension, Myocardial Infarction ([place]), Osteoarthritis (OA), Prostate Disorder, Renal Disease Additional Past Medical History / Comment(s): Pt recently admitted to [facility] on 01/13/21 with severe abdominal pain/gastritis/barretts esophagus. Other hx: L renal cancer with nephrectomy/mets L lung and sternum/no longer taking oral chemo d/t it was affecting his kidney/states he took chemo by infusion about 3 weeks ago and will have another cat scan soon, chronic renal failure stage IV, BPH, chronic low back pain, arthritis R great toe. Last Myocardial Infarction Date:: 02/29/20 History of Any Multi-Drug Resistant Organisms: None Reported Past Surgical History: Heart Catheterization, Orthopedic Surgery Additional Past Surgical History / Comment(s): Left nephrectomy 2016, RT HAND 2ND DIGIT LOST TOP OF FINGER IN CRUSHING INJURY, colonoscopy, 2 normal cardiac caths, EGD, colonoscopy, bilateral cataract removals/lens implants. PT STATES EGD IN JANUARY 2021 WITH ADMISSION Past Anesthesia/Blood Transfusion Reactions: No Reported Reaction Past Psychological History: Depression Smoking Status: Former smoker Past Alcohol Use History: Rare Past Drug Use History: Marijuana - Past Family History Father Family Medical History: Cancer, Hypertension, Myocardial Infarction ([place]) Additional Family Medical History / Comment(s): SKIN CANCER Mother Family Medical History: Cancer Additional Family Medical History / Comment(s): breast cancer - throat cancer Sister(s) Family Medical History: Cancer Additional Family Medical History / Comment(s): skin/breast and throat cancer General Exam Limitations: no limitations General appearance: alert, in no apparent distress Head exam: Present: atraumatic, normocephalic, normal inspection Eye exam: Present: normal appearance, PERRL, EOMI. Absent: scleral icterus, conjunctival injection, periorbital swelling ENT exam: Present: normal exam, normal oropharynx, mucous membranes moist Neck exam: Present: normal inspection, full ROM. Absent: tenderness, meningi smus, lymphadenopathy Respiratory exam: Present: normal lung sounds bilaterally. Absent: respiratory distress, wheezes, rales, rhonchi, stridor Cardiovascular Exam: Present: regular rate, normal rhythm, normal heart sounds. Absent: systolic murmur, diastolic murmur, rubs, gallop, clicks GI/Abdominal exam: Present: soft, normal bowel sounds. Absent: distended, tenderness, guarding, rebound, rigid Course Vital Signs 07/10/22 04:40 Temperature 98.7 F Pulse Rate 68 Respiratory 18 Rate Blood Pressure 123/69 O2 Sat by Pulse 99 Oximetry Chest Pain MDM - MDM 81-year-old male presents from for chest pain. Initial workup was essentially negative patient does have mild a cab. Patient will be admitted for further treatment and management. Disposition Clinical Impression: Chest pain, [place] (acute kidney injury) Disposition: ADMITTED IP TO THIS HOSP Referrals: Derrell Cordova DO [Primary Care Provider] - 1-2 days Time of Disposition: 07:46
[2022-07-10] MEDS ORDERED: ASPIRIN 81 MG PO STA (08:11)
--- NOTE | 2022-07-10 12:20 | P.CRDCN ---
History of Present Illness History of present illness: 81-year-old gentleman with history of metastatic kidney cancer comes to Hospital complaining of chest pain. His chest discomfort a sharp precordial mild intensity unrelated to exertion nor ptosis with diaphoresis. His EKG does not reveal ischemic changes and cardiac enzymes have been negative. Patient apparently and underwent cardiac catheterization several years ago and was advised medical therapy. At the time of my evaluation patient is chest pain- free and hemodynamically stable. I will obtain a 2-D echo on him tomorrow morning he is not a candidate for stress test and he does not require any further cardiac workup at this time Constitutional: Denies chills. Denies fever. Eyes: Denies blurred vision. Denies pain. Ears, nose, mouth and throat: Denies headache. Denies sore throat. Cardiovascular: Significant forchest pain. Denies shortness of breath. Respiratory: Denies cough. Gastrointestinal: Denies abdominal pain. Denies diarrhea. Denies nausea. Denies vomiting. Musculoskeletal: Denies myalgias. Integumentary: Denies pruritus. Denies rash. Neurological: Denies numbness. Denies weakness. Psychiatric: Denies anxiety. Denies depression. Endocrine: Denies fatigue. Denies weight change. Genitourinary: Denies burning, hematuria, frequency of urination. Hematological: No anemia or excess bleeding. General: The patient is awake and alert, in no distress, and does not appear acutely ill. Skin: Skin is warm and dry and no rashes or lesions are noted. Eye: Pupils are equal, round and reactive to light, extra-ocular movements are intact; there is normal conjunctiva bilaterally. Ears, nose, mouth and throat: There are moist mucous membranes and no oral l esions. Neck: The neck is supple, there is no tenderness or JVD. Cardiovascular: [ There is a regular rate and rhythm.][ No murmur, rub or gallop is appreciated.] Respiratory: Lungs are clear to auscultation, respirations are non-labored, breath sounds are equal. Gastrointestinal: Soft, non-distended, non-tender abdomen without masses or organomegaly noted. There is no rebound or guarding present. Bowel sounds are unremarkable. Back: There is no tenderness to palpation in the midline. There is no obvious deformity. Musculoskeletal: Normal ROM, no tenderness, There is no pedal edema. There is no calf tenderness or swelling. Extremities:[ No edema.] Vascular: [Femoral pulse is normal.][ Posterior tibial pulses are normal .][Dorsalis pedis is palpable.] Neurological: CN II-XII intact. There are no obvious motor or sensory deficits. Speech is normal. Psychiatric: Cooperative, appropriate mood & affect, normal judgment. assessment and plan: Atypical chest pain OR ruled out metastatic kidney cancer I will obtain a 2-D echo in the morning Past Medical History Past Medical History: Coronary Artery Disease (CAD), Cancer, Chest Pain / Angina, GERD/Reflux, Hyperlipidemia, Hypertension, Myocardial Infarction ([place]), Osteoarthritis (OA), Prostate Disorder, Renal Disease Additional Past Medical History / Comment(s): Pt recently admitted to [facility] on 01/13/21 with severe abdominal pain/gastritis/barretts esophagus. Other hx: L renal cancer with nephrectomy/mets L lung and sternum/no longer taking oral chemo d/t it was affecting his kidney/states he took chemo by infusion about 3 weeks ago and will have another cat scan soon, chronic renal failure stage IV, BPH, chronic low back pain, arthritis R great toe. Last Myocardial Infarction Date:: 02/29/20 History of Any Multi-Drug Resistant Organisms: None Reported Past Surgical History: Heart Catheterization, Orthopedic Surgery Additional Past Surgical History / Comment(s): Left nephrectomy 2015, RT HAND 2ND DIGIT LOST TOP OF FINGER IN CRUSHING INJURY, colonoscopy, 2 normal cardiac caths, EGD, colonoscopy, bilateral cataract removals/lens implants. PT STATES EGD IN JANUARY 2021 WITH ADMISSION Past Anesthesia/Blood Transfusion Reactions: No Reported Reaction Past Psychological History: Depression Smoking Status: Former smoker Past Alcohol Use History: Rare Past Drug Use History: Marijuana - Past Family History Father Family Medical History: Cancer, Hypertension, Myocardial Infarction ([place]) Additional Family Medical History / Comment(s): SKIN CANCER Mother Family Medical History: Cancer Additional Family Medical History / Comment(s): breast cancer - throat cancer Sister(s) Family Medical History: Cancer Additional Family Medical History / Comment(s): skin/breast and throat cancer Medications and Allergies Home Medications Medication Instructions Recorded Confirmed Type Tamsulosin HCl [Flomax] 0.4 mg PO HS 10/12/17 07/10/22 History amLODIPine [Norvasc] 5 mg PO BID #60 tab 02/12/21 07/10/22 Rx Levofloxacin [Levaquin] 750 mg PO DAILY 7 Days #7 tab 07/04/22 07/10/22 Rx Metoprolol (Unknown) 1 tab PO DIRECTED 07/10/22 History Pravastatin Sodium 80 mg PO DIRECTED 07/10/22 07/10/22 History Allergies Allergy/AdvReac Type Severity Reaction Status Date / Time atorvastatin calcium Allergy JOINT PAIN Verified 07/10/22 10:54 [From Lipitor] clindamycin AdvReac JOINT PAIN Verified 07/10/22 10:54 Physical Exam Vitals: Vital Signs Temp Pulse Resp BP Pulse Ox 07/10/22 12:03 71 18 131/73 97 07/10/22 10:09 70 18 124/70 97 07/10/22 08:47 69 18 97 07/10/22 04:40 98.7 F 68 18 123/69 99 Intake and Output 07/09/22 07/10/22 07/10/22 22:59 06:59 14:59 Other: Weight 59.874 kg Results 07/10/22 06:13 07/10/22 06:13 Cardiac Enzymes 07/10/22 07/10/22 07/10/22 Range/Units 06:13 06:13 10:28 AST 21 (17-59) U/L Troponin I <0.012 <0.012 (0.000-0.034) ng/mL Coagulation 07/10/22 Range/Units 06:13 PT 10.0 (9.0-12.0) sec APTT 25.8 (22.0-30.0) sec CBC 07/10/22 Range/Units 06:13 WBC 7.7 (3.8-10.6) k/uL RBC 4.08 L (4.30-5.90) m/uL Hgb 12.8 L (13.0-17.5) gm/dL Hct 37.2 L (39.0-53.0) % Plt Count 261 (150-450) k/uL Comprehensive Metabolic Panel 07/10/22 Range/Units 06:13 Sodium 142 (137-145) mmol/L Potassium 5.1 (3.5-5.1) mmol/L Chloride 106 (98-107) mmol/L Carbon Dioxide 25 (22-30) mmol/L BUN 47 H (9-20) mg/dL Creatinine 2.14 H (0.66-1.25) mg/dL Glucose 104 H (74-99) mg/dL Calcium 9.8 (8.4-10.2) mg/dL AST 21 (17-59) U/L ALT 14 (4-49) U/L Alkaline Phosphatase 90 (38-126) U/L Total Protein 6.6 (6.3-8.2) g/dL Albumin 4.1 (3.5-5.0) g/dL Current Medications Generic Name Dose Route Start Last Admin Trade Name Freq PRN Reason Stop Dose Admin Amlodipine Besylate 5 mg 07/10/22 21:00 Amlodipine 5 Mg Tab PO BID [facility] Aspirin 325 mg 07/11/22 09:00 Aspirin 325 Mg Tab PO DAILY [facility] Sodium Chloride 1,000 mls @ 75 mls/hr 07/10/22 10:00 Saline 0.9% IV .[id number] [facility] Metoprolol Tartrate 25 mg 07/10/22 09:45 Metoprolol Tartrate 25 Mg Tab PO BID [facility] Nitroglycerin 0.4 mg 07/10/22 07:50 Nitroglycerin Sl Tabs 0.4 Mg Tab SUBLINGUAL Q5M PRN Chest Pain Tamsulosin HCl 0.4 mg 07/10/22 21:00 Tamsulosin 0.4 Mg Cap.Er.24h PO HS [facility] Intake and Output 07/09/22 07/10/22 07/10/22 22:59 06:59 14:59 Other: Weight 59.874 kg 07/10/22 06:13 07/10/22 06:13
[2022-07-10] MEDS: SODIUM CHLORIDE 0.9% 1,000 ML IV SCH ×2 (12:36→22:25)
[2022-07-10] MEDS: METOPROLOL TARTRATE 25 MG TAB PO SCH ×2 (12:36→20:14)
--- NOTE | 2022-07-10 13:45 | P.HPIM ---
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 Mcneal with last chemotherapy treatment being the beginning of June and due for next dose next week., chronic kidney disease stage IV, coronary artery disease, hypertension, and hyperlipidemia. Patient presented to the emergency department with a chief complaint of chest pain. Patient reports he has been experiencing intermittent chest pains on and off for the past couple weeks status post treatment of upper respiratory infection. Patient reports this morning pain began to midsternal chest pain was described as a sharp pressure-like sensation that did not go away so he came to the emergency department for evaluation. He denied having any accompanying symptoms including dizziness, lightheadedness, diaphoresis, cough or congestion, shortness of breath, exertional dyspnea, palpitations, nausea or vomiting, or experiencing any numbness/tingling/weakness in his extremities. Patient underwent full evaluation in the emergency department. CBC revealing normocytic anemia with hemoglobin of 12.8 and CMP revealing an acute kidney injury with BUN 47, creatinine 2.14, and GFR of 28. Troponin negative at less than 0.012 and proBNP of 134. EKG showing normal sinus rhythm at 63 bpm with no noted T-wave or ST abnormalities showing no signs of acute ischemia. Chest x- ray negative for acute cardiopulmonary process. Patient admitted under the services of consultation cardiology. Review of systems: Pertinent positives and negatives as discussed in HPI, a complete review of systems was performed and all other systems are negative. Physical exam: Vital signs reviewed and stable. General: Nontoxic, no distress and appears stated age. Derm: Skin warm and dry, normal coloration for ethnicity. Head: Atraumatic, normocephalic and symmetric. Eyes: EOMs intact, no lid lag, and anicteric sclera Mouth: no lip lesions, mucus membranes moist Cardiovascular: regular rate and rhythm with normal S1S2, no murmur, positive posterior tibial pulses bilaterally, and cap refill < 2 seconds. Lungs: Respirations even, regular, and unlabored on room air. Lungs CTA bilaterally, no rhonchi, no rales, no wheezing, and no accessory muscle usage. Abdominal: soft, nontender to palpation, no guarding, no appreciable organom egaly Ext: ROM intact. No gross muscle atrophy, no edema, no contractures Neuro: Speech clear, face symmetrical and CN II-XII grossly intact with no noted focal neuro deficits Psych: Alert and oriented to person, place, time, and situation. Appropriate and pleasant affect. Assessment and Plan of Care: Chest pain, rule out acute coronary event -Cardiology consult, appreciate further recommendations -Telemetry monitoring -Trend troponins -Cardiac diet, NPO at midnight -Aspirin, atorvastatin, and metoprolol -Lipid profile with a.m. labs. -Echocardiogram Acute kidney injury on stage IV chronic kidney disease with baseline creatinine of 1.5 -Patient to be provided with gentle IV fluid hydration and we will continue to monitor closely with repeat a.m. labs. -Avoid nephrotoxic medications. -If no improvement after gentle IV fluid hydration nephrology will be consulted. Metastatic renal cell carcinoma status post left nephrectomy -Patient to continue to follow up outpatient with Dr. Mcneal for scheduled monthly chemotherapy treatments, continued monitoring and management. The patient is admitted with an anticipated less than 2 midnight stay for evaluation of chest pain and acute kidney injury CODE STATUS: Full code DVT prophylaxis: Heparin Discussed with: Patient and RN and patient discussed with his over the telephone. Anticipated discharge date: 1-[address]: Home A total of 46 minutes was spent on the care of this complex patient more than 50% of the time was spent in counseling and care coordination. I reviewed the documentation as provided by the SAW above, who is the original author of this note. I agree with the documented assessment and plan, with the following changes: none Past Medical History Past Medical History: Coronary Artery Disease (CAD), Cancer, Chest Pain / Angina, GERD/Reflux, Hyperlipidemia, Hypertension, Myocardial Infarction ([place]), Osteoarthritis (OA), Prostate Disorder, Renal Disease Additional Past Medical History / Comment(s): Pt recently admitted to [facility] on 01/13/21 with severe abdominal pain/gastritis/barretts esophagus. Other hx: L renal cancer with nephrectomy/mets L lung and sternum/no longer taking oral chemo d/t it was affecting his kidney/states he took chemo by infusion about 3 weeks ago and will have another cat scan soon, chronic renal failure stage IV, BPH, chronic low back pain, arthritis R great toe. Last Myocardial Infarction Date:: 02/29/20 History of Any Multi-Drug Resistant Organisms: None Reported Past Surgical History: Heart Catheterization, Orthopedic Surgery Additional Past Surgical History / Comment(s): Left nephrectomy 2016, RT HAND 2ND DIGIT LOST TOP OF FINGER IN CRUSHING INJURY, colonoscopy, 2 normal cardiac caths, EGD, colonoscopy, bilateral cataract removals/lens implants. PT STATES EGD IN JANUARY 2021 WITH ADMISSION Past Anesthesia/Blood Transfusion Reactions: No Reported Reaction Past Psychological History: Depression Smoking Status: Former smoker Past Alcohol Use History: Rare Past Drug Use History: Marijuana - Past Family History Father Family Medical History: Cancer, Hypertension, Myocardial Infarction ([place]) Additional Family Medical History / Comment(s): SKIN CANCER Mother Family Medical History: Cancer Additional Family Medical History / Comment(s): breast cancer - throat cancer Sister(s) Family Medical History: Cancer Additional Family Medical History / Comment(s): skin/breast and throat cancer Medications and Allergies Home Medications Medication Instructions Recorded Confirmed Type Tamsulosin HCl [Flomax] 0.4 mg PO HS 10/12/17 07/10/22 History amLODIPine [Norvasc] 5 mg PO BID #60 tab 02/12/21 07/10/22 Rx Levofloxacin [Levaquin] 750 mg PO DAILY 7 Days #7 tab 07/04/22 07/10/22 Rx Metoprolol Tartrate [Lopressor] 25 mg PO BID 07/10/22 07/10/22 History Pravastatin Sodium [Pravachol] 40 mg PO HS 07/10/22 07/10/22 History Allergies Allergy/AdvReac Type Severity Reaction Status Date / Time atorvastatin calcium Allergy JOINT PAIN Verified 07/10/22 10:54 [From Lipitor] clindamycin AdvReac JOINT PAIN Verified 07/10/22 10:54 Physical Exam Osteopathic Statement: *. No significant issues noted on an osteopathic structural exam other than those noted in the History and Physical/Consult. Vitals: Vital Signs Temp Pulse Resp BP Pulse Ox 07/10/22 08:47 69 18 97 07/10/22 04:40 98.7 F 68 18 123/69 99 Intake and Output 07/09/22 07/10/22 07/10/22 22:59 06:59 14:59 Other: Weight 59.874 kg Results CBC & Chem 7: 07/10/22 06:13 07/10/22 06:13 Labs: Abnormal Lab Results - Last 24 Hours (Table) 07/10/22 07/10/22 Range/Units 06:13 06:13 RBC 4.08 L (4.30-5.90) m/uL Hgb 12.8 L (13.0-17.5) gm/dL Hct 37.2 L (39.0-53.0) % Eosinophils # 1.0 H (0-0.7) k/uL BUN 47 H (9-20) mg/dL Creatinine 2.14 H (0.66-1.25) mg/dL Glucose 104 H (74-99) mg/dL
[2022-07-10 20:13] VITALS: RESP 16
[2022-07-10] MEDS: HEPARIN SODIUM,PORCINE/PF 5,000 UNIT/0.5 ML SYRINGE SQ SCH (20:13)
[2022-07-10] MEDS: amLODIPine 5 MG TAB PO SCH (20:14)
[2022-07-10] MEDS ORDERED: PRAVASTATIN SODIUM 40 MG TAB PO SCH (21:00)
[2022-07-10] MEDS ORDERED: TAMSULOSIN 0.4 MG CAP.ER.24H PO SCH (21:00)
[2022-07-11] MEDS ORDERED: ASPIRIN 325 MG TAB PO SCH (09:00)
[2022-07-11 09:13] LABS: HCT 34.9 % (39.6-50.0); HGB 11.6 g/dL (13.0-17.0); MCH 30.1 pg (27.0-32.0); MCHC 33.2 g/dL (32.0-37.0); MCV 90.6 fL (80.0-97.0); Mean Platelet Volume 10.7 fL (9.5-12.2); NRBC Per 100 WBC 0 /100 WBCS (0.0-0.0); Platelet Count 268 X 10*3/uL (140-440); RBC 3.85 X 10*6/uL (4.40-5.60); RDW 14.3 % (11.5-14.5); WBC 6.83 X 10*3/uL (4.50-10.00)
[2022-07-11 09:23] LABS: ALT 8 U/L (10-49); AST 15 U/L (14-35); African American GFR (CKD) 54.6 (60.0-200.0); Albumin 3.3 g/dL (3.8-4.9); Albumin/Globulin Ratio 1.57 (1.60-3.17); Alkaline Phosphatase 95 U/L (41-126); BUN/Creat Ratio 21.21 Ratio (12.00-20.00); Blood Urea Nitrogen 29.7 mg/dL (9.0-27.0); Calcium 8.4 mg/dL (8.7-10.3); Carbon Dioxide 21.6 mmol/L (20.0-27.5); Chloride 108 mmol/L (96-109); Chol/HDL Ratio 2.75 Ratio; Globulin 2.1 g/dL (1.6-3.3); Glucose 87 mg/dL (70-110); LDL Cholesterol,Calculated 60.1 mg/dL (0.0-131.0); Magnesium 1.9 mg/dL (1.5-2.4); Non-African American GFR(CKD) 47.1 (60.0-200.0); Potassium 3.9 mmol/L (3.5-5.5); Sodium 138 mmol/L (135-145); Total Protein 5.4 g/dL (6.2-8.2)
[2022-07-11] MEDS: METOPROLOL TARTRATE 25 MG TAB PO SCH (09:53)
[2022-07-11] MEDS: amLODIPine 5 MG TAB PO SCH (09:53)
[2022-07-11] MEDS: HEPARIN SODIUM,PORCINE/PF 5,000 UNIT/0.5 ML SYRINGE SQ SCH (09:53)
[2022-07-11 14:56] VITALS: BP 117/63; PULSE 60; TEMP 98
--- NOTE | 2022-07-11 17:43 | P.DS ---
Providers Date of admission: 07/10/22 09:07 Expected date of discharge: 07/11/22 Attending physician: Jayme Pardo MD Primary care physician: Derrell Cordova [facility] Course: Discharge Diagnosis: Chest pain, acute coronary event ruled out. Troponins negative 3 draws. EKG normal sinus rhythm. Echocardiogram completed however results not available at time of discharge and patient to follow up outpatient with cardiology in 1 week to discuss. Hypertension. Patient to continue daily medication regimen with metoprolol and amlodipine. Hyperlipidemia. Patient to continue pravastatin 40 mg nightly. History of CAD Acute kidney injury on stage IV chronic kidney disease. Resolved after treatment of IV fluids. Creatinine 1.4 upon discharge. Metastatic renal cell carcinoma status post left nephrectomy. Patient to continue to follow up outpatient with Dr. Mcneal for scheduled monthly chemotherapy treatments, continued monitoring and management. 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 Mcneal with last chemotherapy treatment being the beginning of June and due for next dose next week., chronic kidney disease stage IV, coronary artery disease, hypertension, and hyperlipidemia. Patient presented to the emergency department with a chief complaint of chest pain. Patient reports he has been experiencing intermittent chest pains on and off for the past couple weeks status post treatment of upper respiratory infection. Patient reports this morning pain began to midsternal chest pain was described as a sharp pressure-like sensation that did not go away so he came to the emergency department for evaluation. He reported chest pain had completely resolved upon arrival to our facility and has not returned. Patient underwent full evaluation in the emergency department. CBC revealing normocytic anemia with hemoglobin of 12.8 and CMP revealing an acute kidney injury with BUN 47, creatinine 2.14, and GFR of 28. Troponin negative at less than 0.012 and proBNP of 134. EKG showing normal sinus rhythm at 63 bpm with no noted T-wave or ST abnormalities showing no signs of acute ischemia. Chest x- ray negative for acute cardiopulmonary process. Patient admitted under the services of consultation cardiology. Troponins were trended overnight all negative at less than 0.0123 draws. Repeat labs showing no significant abnormalities. Lipid profile unremarkable. Acute kidney injury resolved with creatinine decreasing from 2.14 down to 1.4 after administration of IV fluid hydration. Cardiology evaluated stating patient to undergo echocardiogram however patient is not a candidate for stress test and does not require any further cardiac workup at this time. Patient has remained free from any further episodes of chest pain or discomfort since arrival to our facility. Vital signs are unremarkable and he is medically stable for discharge home. Echocardiogram results not available at time of discharge, patient instructed he will need to follow up outpatient with cardiology in their office next week to further discuss and review these results once available. Patient is medically stable for discharge and to follow up outpatient with PCP in 1-2 days, cardiology in 1 week and was instructed he may resume chemotherapy as scheduled next week with his oncologist Dr. Mcneal. Physical exam: Vital signs reviewed and stable. General: Nontoxic, no distress and appears stated age. Derm: Skin warm and dry, normal coloration for ethnicity. Head: Atraumatic, normocephalic and symmetric. Eyes: EOMs intact, no lid lag, and anicteric sclera Mouth: no lip lesions, mucus membranes moist Cardiovascular: regular rate and rhythm with normal S1S2, no murmur, positive posterior tibial pulses bilaterally, and cap refill < 2 seconds. Lungs: Respirations even, regular, and unlabored on room air. Lungs CTA bilaterally, no rhonchi, no rales, no wheezing, and no accessory muscle usage. Abdominal: soft, nontender to palpation, no guarding, no appreciable organomegaly Ext: ROM intact. No gross muscle atrophy, no edema, no contractures Neuro: Speech clear, face symmetrical and CN II-XII grossly intact with no noted focal neuro deficits Psych: Alert and oriented to person, place, time, and situation. Appropriate and pleasant affect. A total of 36 minutes of time were spent preparing this complex discharge summary. Pt was discharged on 07/11/22 of 5:31 PM. I reviewed the documentation as provided by the SAW above, who is the original author of this note. I agree with the documented assessment and plan, with the following changes: none Patient Condition at Discharge: Stable Plan - Discharge Summary Discharge Rx Participant: No New Discharge Prescriptions: Continue Tamsulosin HCl [Flomax] 0.4 mg PO HS Metoprolol Tartrate [Lopressor] 25 mg PO BID amLODIPine [Norvasc] 5 mg PO BID #60 tab Pravastatin Sodium [Pravachol] 40 mg PO HS Discontinued Levofloxacin [Levaquin] 750 mg PO DAILY 7 Days #7 tab Discharge Medication List Tamsulosin HCl [Flomax] 0.4 mg PO HS 10/12/17 [History] amLODIPine [Norvasc] 5 mg PO BID #60 tab 02/12/21 [Rx] Metoprolol Tartrate [Lopressor] 25 mg PO BID 07/10/22 [History] Pravastatin Sodium [Pravachol] 40 mg PO HS 07/10/22 [History] Follow up Appointment(s)/Referral(s): Derrell Cordova DO [Primary Care Provider] - 1-2 days Mk Green MD [STAFF PHYSICIAN] - 1 Week Patient Instructions/Handouts: Chest Pain (DC) Activity/Diet/Wound Care/Special Instructions: Activity: As tolerated. Take breaks as needed. Diet: Heart healthy and carb consistent diet. Avoid salts, or foods with hidden salts such as canned or boxed foods and frozen dinners. Extra salt makes your heart work harder and traps the fluid in your body for longer. Special Instructions: Take all of your medications as directed and remember to keep all of your doctor's appointments and follow-up as needed. You will need to follow up outpatient with meal miller in their office to review echocardiogram results as these results are not available at time of discharge. You may resume chemotherapy as scheduled with Dr. Mcneal next week. Thank you for allowing us to participate in your care, it was truly a pleasure having you for our patient!!! Discharge Disposition: HOME SELF-CARE
--- NOTE | 2022-07-11 18:21 | CA ---
Transthoracic Echo Report Name: Kurtsi Mckeon Age: 81 Gender: M : 1940 Exam Date: 07/11/2022 11:41 Exam Location: [facility] Ht (in): 62 Wt (lb): 132 Ordering Physician: Rubio Chamorro Attending/Referring Phys: Japanese Tutor Clary Dixon RDCS Procedure CPT: Indications: Evaluate structure and function Cardiac Hx: Technical Quality: Contrast 1: Total Dose (mL): Contrast 2: Total Dose (mL): MEASUREMENTS (Male / Female) Normal Values 2D ECHO LV Diastolic Diameter PLAX 4.5 cm 4.2 - 5.9 / 3.9 - 5.3 cm LV Systolic Diameter PLAX 3.6 cm IVS Diastolic Thickness 0.9 cm 0.6 - 1.0 / 0.6 - 0.9 cm LVPW Diastolic Thickness 1.4 cm 0.6 - 1.0 / 0.6 - 0.9 cm LV Relative Wall Thickness 0.5 RV Internal Dim ED PLAX 2.8 cm LA Volume 53.0 cm??? 18 - 58 / 22 - 52 cm??? M-MODE Aortic Root Diameter MM 3.5 cm LA Systolic Diameter MM 3.9 cm LA Ao Ratio MM 1.1 MV E Point Septal Separation 0.5 cm AV Cusp Separation MM 1.5 cm DOPPLER MV Area PHT 2.2 cm??? Mitral E Point Velocity 42.7 cm/s Mitral A Point Velocity 84.2 cm/s Mitral E to A Ratio 0.5 MV Deceleration Time 338.5 ms MV E' Velocity 5.1 cm/s Mitral E to MV E' Ratio 8.3 FINDINGS Left Ventricle Left ventricular ejection fraction is estimated at 50-55%. Mildly increased left ventricular wall thickness. Right Ventricle Normal right ventricular size and function. Right Atrium Normal right atrial size. Left Atrium Normal left atrial size. Mitral Valve Structurally normal mitral valve. Mild mitral regurgitation. Aortic Valve Trileaflet aortic valve. [id number] aortic regurgitation. Tricuspid Valve Structurally normal tricuspid valve. Mild tricuspid regurgitation. Pulmonic Valve Structurally normal pulmonic valve. Pericardium Normal pericardium. Aorta Normal size aortic root and proximal ascending aorta. CONCLUSIONS Preserved LV size and systolic function Previewed by: Dr. Jean Pierre Carey MD (Electronically Signed) Final Date: 11 July 2022 18:20
[2022-07-11] MEDS: SODIUM CHLORIDE 0.9% 1,000 ML IV SCH (19:14)
== END 2022-07-11 17:25 | disposition home or self-care (01) ==
LOC: EC 04:36 → 6NMEDSUR 09:07
PROVIDERS: ADMIT Internal Medicine; ATTEND Internal Medicine
DX: R07.89 Other chest pain (principal); E78.5 Hyperlipidemia, unspecified; I25.10 Atherosclerotic heart disease of native coronary artery without angina pectoris; N17.9 Acute kidney failure, unspecified; I12.9 Hypertensive chronic kidney disease with stage 1 through stage 4 chronic kidney disease, or unspecified chronic kidney disease; N18.4 Chronic kidney disease, stage 4 (severe); C78.00 Secondary malignant neoplasm of unspecified lung; D63.1 Anemia in chronic kidney disease; K21.9 Gastro-esophageal reflux disease without esophagitis; N40.0 Benign prostatic hyperplasia without lower urinary tract symptoms; G89.29 Other chronic pain; M54.50 Low back pain, unspecified; I25.2 Old myocardial infarction; F32.A Depression, unspecified; Z85.528 Personal history of other malignant neoplasm of kidney; Z87.891 Personal history of nicotine dependence; Z90.5 Acquired absence of kidney; Z79.82 Long term (current) use of aspirin; Z79.899 Other long term (current) drug therapy; Z88.1 Allergy status to other antibiotic agents; Z80.8 Family history of malignant neoplasm of other organs or systems; Z80.3 Family history of malignant neoplasm of breast; Z82.49 Family history of ischemic heart disease and other diseases of the circulatory system
CPT/HCPCS: 96372 ×2; 99285; 36415; 93005; 93306; 83880; 80061; 80053 ×2; 83735 ×2; 84484; 85025; 85027; 85610; 85730; 71046; G0378 ×2; J1644 ×2

== ENCOUNTER → 2022-07-26 | Outpatient (CLI) | payer OTHER ==
--- NOTE | 2022-07-27 06:17 | US ---
EXAMINATION TYPE: US kidneys/renal and bladder DATE OF EXAM: 07/26/2022 COMPARISON: CT March 26, 2020 CLINICAL HISTORY: ckd stage 3b N18.32. EXAM MEASUREMENTS: Right Kidney: 10.8 x 5.5 x 5.2 cm Right Kidney: multiple cysts with largest measuring 3.6cm Left Kidney: surgically absent Bladder: wnl Bilateral Jets seen: right jet seen Enlarged prostate There are a few thin-walled cysts scattered throughout the right kidney up to 3.6 cm in size. The ur inary bladder is adequately distended. Distal right ureter jet is seen. Prominent prostate bulging on bladder base IMPRESSION: No right-sided hydronephrosis.
== END | disposition home or self-care (01) ==
LOC: RADUSWWP 16:08
PROVIDERS: ATTEND Internal Medicine
DX: N18.32 Chronic kidney disease, stage 3b (principal)
CPT/HCPCS: 76770

== ENCOUNTER 2022-10-08 22:19 | Emergency (ER) | payer OTHER ==
--- NOTE | 2022-10-08 22:52 | ED ---
General Adult HPI - General Chief complaint: Chest Pain Stated complaint: Chest Pain Time Seen by Provider: 10/08/22 22:33 Source: patient Mode of arrival: wheelchair Limitations: no limitations - History of Present Illness Initial comments: This patient is an 82-year-old man who presents 7 evaluation of pain that has been in the chest and abdomen over the past about 24 hours. The patient states that initially it felt like some gas in his epigastric area. He has pains that will last a number of minutes, get better when he belches, but can recur a variable amount time up to hours later. He states the pain has also been in the periumbilical area and also in the substernal area it does seem to move around. He has not noted worsening or relieving factors. He has not noted any anginal type symptoms. Patient states that he is symptom-free at the moment. Onset/Timin -: days(s) Location: chest, abdomen Radiation: non-radiation Quality: other (Like gas) Consistency: intermittent Improves with: other (belching) Worsens with: none Associated Symptoms: denies other symptoms Treatments Prior to Arrival: none - Related Data Home Medications Medication Instructions Recorded Confirmed Tamsulosin HCl [Flomax] 0.4 mg PO HS 10/12/17 07/10/22 Metoprolol Tartrate [Lopressor] 25 mg PO BID 07/10/22 07/10/22 Pravastatin Sodium [Pravachol] 40 mg PO HS 07/10/22 07/10/22 Previous Rx's Medication Instructions Recorded amLODIPine [Norvasc] 5 mg PO BID #60 tab 02/12/21 Allergies Allergy/AdvReac Type Severity Reaction Status Date / Time atorvastatin calcium Allergy JOINT PAIN Verified 07/10/22 10:54 [From Lipitor] clindamycin AdvReac JOINT PAIN Verified 07/10/22 10:54 Review of Systems ROS Statement: Those systems with pertinent positive or pertinent negative responses have been documented in the HPI. ROS Other: All systems not noted in ROS Statement are negative. Constitutional: Denies: fever, chills Respiratory: Denies: cough, dyspnea Cardiovascular: Reports: as per HPI, chest pain. Denies: palpitations, dyspnea on exertion, orthopnea, edema, syncope Gastrointestinal: Reports: as per HPI, abdominal pain. Denies: nausea, vomiting, diarrhea Genitourinary: Denies: dysuria, hematuria Musculoskeletal: Denies: back pain Skin: Denies: rash Neurological: Denies: headache, weakness Past Medical History Past Medical History: Coronary Artery Disease (CAD), Cancer, Chest Pain / Angina, GERD/Reflux, Hyperlipidemia, Hypertension, Myocardial Infarction ([place]), Osteoarthritis (OA), Prostate Disorder, Renal Disease Additional Past Medical History / Comment(s): Recent upper respiratory tract infection, L renal cancer with nephrectomy/mets L lung and sternum/no longer taking oral chemo d/t it was affecting his kidney/states he receives nfusion once a month but does not know what type of infusion, chronic renal failure stage IV, BPH, newsome's esophagus, gastritis, dry mouth, chronic low back pain, arthritis R great toe. Last Myocardial Infarction Date:: 02/29/20 History of Any Multi-Drug Resistant Organisms: None Reported Past Surgical History: Heart Catheterization, Orthopedic Surgery Additional Past Surgical History / Comment(s): Left nephrectomy 2016, RT HAND 2ND DIGIT LOST TOP OF FINGER IN CRUSHING INJURY, EGDs, colonoscopy, bilateral cataract removals/lens implants. Past Anesthesia/Blood Transfusion Reactions: No Reported Reaction Past Psychological History: Depression Smoking Status: Former smoker - Past Family History Father Family Medical History: Cancer, Hypertension, Myocardial Infarction ([place]) Additional Family Medical History / Comment(s): SKIN CANCER Mother Family Medical History: Cancer Additional Family Medical History / Comment(s): breast cancer - throat cancer Sister(s) Family Medical History: Cancer Additional Family Medical History / Comment(s): skin/breast and throat cancer General Exam Limitations: no limitations General appearance: alert, in no apparent distress Head exam: Present: atraumatic, normocephalic Eye exam: Present: normal appearance. Absent: scleral icterus, conjunctival injection Neck exam: Present: normal inspection Respiratory exam: Present: normal lung sounds bilaterally. Absent: respiratory distress, wheezes, rales, rhonchi, stridor Cardiovascular Exam: Present: regular rate, normal rhythm, normal heart sounds. Absent: systolic murmur, diastolic murmur, rubs, gallop GI/Abdominal exam: Present: soft. Absent: distended, tenderness, guarding, rebound, rigid, mass Extremities exam: Present: normal inspection, normal capillary refill. Absent: pedal edema, calf tenderness Back exam: Present: normal inspection. Absent: CVA tenderness (R), CVA tenderness (L) Neurological exam: Present: alert Skin exam: Present: warm, dry, intact, normal color. Absent: rash Course Vital Signs 10/08/22 10/09/22 22:27 01:20 Temperature 98 F 97.9 F Pulse Rate 63 74 Respiratory 18 16 Rate Blood Pressure 114/64 110/68 O2 Sat by Pulse 97 98 Oximetry EKG Findings - EKG Results: EKG: interpreted by ERICA RICO, sinus rhythm (Rate 63 bpm), normal axis, normal QRS, normal ST/T, no acute changes Medical Decision Making - Medical Decision Making Patient is 82-year-old man with atypical sounding symptoms that have affected at times the substernal area, epigastric area, the periumbilical area. Pains are transient and migrate. They are not typical of cardiac chest pain and there is no coming anginal symptoms. I did discuss admission for further monitoring and serial cardiac enzymes but the patient is declining this option. In addition the symptoms have been going on long enough that one troponin should suffice. The patient and I did discuss appropriate follow-up and also return parameters. The patient did have acute abdominal series with chest x-ray that I interpreted as not showing cardiomegaly or pulmonary infiltrate. No bowel obstruction or free air. Was pt. sent in by a medical professional or institution? @ -no Did you speak to anyone other than the patient for history? @ -[Family Did you review nursing and triage notes? @ -[agree Were old charts reviewed? @ -[Previous record Differential Diagnosis? @ -[Differential Chest Pain: Stable Angina, Unstable Angina, STEMI, NSTEMI Aortic Dissection, Pneumothorax, Musculoskeletal, Esophageal Spasm GERD, Cholecystitis, Pancreatitis, Zoster, this is not meant to be an all-inclusive list. EKG interpreted by me (3pts min.)? @ -[See chart X-rays interpreted by me (1pt min.)? @ -See chart CT interpreted by me (1pt min.)? @ -[none] U/S interpreted by me (1pt. min.)? @ -[none] What testing was considered but not performed? (CT, X-rays, U/S, labs)? Why? @ [None What meds were considered but not given? Why? @ -[none] Did you discuss the management of the patient with other professionals? @ -[No Did you reconcile home meds? @ -[none] Was smoking cessation discussed for >3mins.? @ -[none] Was critical care preformed (if so, how long)? @ -[none] Were there social determinants of health that impacted care today? How? (Homelessness, low income, unemployed, alcoholism, drug addiction, transportation, low edu. Level, literacy, decrease access to med. care, assisted, rehab)? @ -[No Was there de-escalation of care discussed even if they declined? (Discuss DNR or withdrawal of care, Hospice)? @ -[No What co-morbidities impacted this encounter? (DM, HTN, Smoking, COPD, CAD, Cancer, CVA, Hep., AIDS, mental health diagnosis, sleep apnea, morbid obesity)? @ -[None Was patient admitted / discharged? @ -[Discharged Undiagnosed new problem with uncertain prognosis? @ -[none] Drug Therapy requiring intensive monitoring for toxicity (Heparin, Nitro, Insulin, Cardizem)? @ -[none] Were any procedures done? @ -[none] Diagnosis/symptom? @ -[1. Acute atypical chest pain Acute, or Chronic, or Acute on Chronic? @ -[default] Uncomplicated (without systemic symptoms) or Complicated (systemic symptoms)? @ -[Uncomplicated Side effects of treatment? @ -[none] Exacerbation, Progression, or Severe Exacerbation] @ -[no] Poses a threat to life or bodily function? @ -[no] - Lab Data Result diagrams: 10/08/22 23:59 10/08/22 23:59 Lab Results 10/08/22 10/08/22 10/08/22 Range/Units 23:59 23:59 23:59 WBC 7.9 (3.8-10.6) k/uL RBC 3.81 L (4.30-5.90) m/uL Hgb 12.0 L (13.0-17.5) gm/dL Hct 33.8 L (39.0-53.0) % MCV 88.8 (80.0-100.0) fL MCH 31.6 (25.0-35.0) pg MCHC 35.6 (31.0-37.0) g/dL RDW 13.7 (11.5-15.5) % Plt Count 226 (150-450) k/uL MPV 8.8 Neutrophils % 59 % Lymphocytes % 23 % Monocytes % 7 % Eosinophils % 8 % Basophils % 1 % Neutrophils # 4.7 (1.3-7.7) k/uL Lymphocytes # 1.8 (1.0-4.8) k/uL Monocytes # 0.6 (0-1.0) k/uL Eosinophils # 0.6 (0-0.7) k/uL Basophils # 0.1 (0-0.2) k/uL PT 9.7 (9.0-12.0) sec INR 0.9 (<1.2) APTT 25.5 (22.0-30.0) sec Sodium 136 L (137-145) mmol/L Potassium 4.0 (3.5-5.1) mmol/L Chloride 109 H (98-107) mmol/L Carbon Dioxide 25 (22-30) mmol/L Anion Gap 2 mmol/L BUN 25 H (9-20) mg/dL Creatinine 1.27 H (0.66-1.25) mg/dL Est GFR (CKD-EPI)AfAm 61 (>60 ml/min/1.73 sqM) Est GFR (CKD-EPI)NonAf 53 (>60 ml/min/1.73 sqM) Glucose 87 (74-99) mg/dL Calcium 8.5 (8.4-10.2) mg/dL Magnesium 2.1 (1.6-2.3) mg/dL Total Bilirubin 0.3 (0.2-1.3) mg/dL AST 22 (17-59) U/L ALT 16 (4-49) U/L Alkaline Phosphatase 73 (38-126) U/L Troponin I (0.000-0.034) ng/mL Total Protein 5.9 L (6.3-8.2) g/dL Albumin 3.4 L (3.5-5.0) g/dL Amylase 56 (30-110) U/L Lipase 149 (23-300) U/L 10/08/22 Range/Units 23:59 WBC (3.8-10.6) k/uL RBC (4.30-5.90) m/uL Hgb (13.0-17.5) gm/dL Hct (39.0-53.0) % MCV (80.0-100.0) fL MCH (25.0-35.0) pg MCHC (31.0-37.0) g/dL RDW (11.5-15.5) % Plt Count (150-450) k/uL MPV Neutrophils % % Lymphocytes % % Monocytes % % Eosinophils % % Basophils % % Neutrophils # (1.3-7.7) k/uL Lymphocytes # (1.0-4.8) k/uL Monocytes # (0-1.0) k/uL Eosinophils # (0-0.7) k/uL Basophils # (0-0.2) k/uL PT (9.0-12.0) sec INR (<1.2) APTT (22.0-30.0) sec Sodium (137-145) mmol/L Potassium (3.5-5.1) mmol/L Chloride (98-107) mmol/L Carbon Dioxide (22-30) mmol/L Anion Gap mmol/L BUN (9-20) mg/dL Creatinine (0.66-1.25) mg/dL Est GFR (CKD-EPI)AfAm (>60 ml/min/1.73 sqM) Est GFR (CKD-EPI)NonAf (>60 ml/min/1.73 sqM) Glucose (74-99) mg/dL Calcium (8.4-10.2) mg/dL Magnesium (1.6-2.3) mg/dL Total Bilirubin (0.2-1.3) mg/dL AST (17-59) U/L ALT (4-49) U/L Alkaline Phosphatase (38-126) U/L Troponin I <0.012 (0.000-0.034) ng/mL Total Protein (6.3-8.2) g/dL Albumin (3.5-5.0) g/dL Amylase (30-110) U/L Lipase (23-300) U/L Disposition Clinical Impression: Atypical chest pain Disposition: HOME SELF-CARE Condition: Good Instructions (If sedation given, give patient instructions): Chest Pain (ED) Is patient prescribed a controlled substance at d/c from ED?: No Referrals: [facility],Clinic [Primary Care Provider] - 1-2 days
[2022-10-09 00:08] LABS: Basophils # (A) 0.1 k/uL (0-0.2); Basophils % (A) 1 %; Eosinophils # (A) 0.6 k/uL (0-0.7); Eosinophils % (A) 8 %; HCT 33.8 % (39.0-53.0); Lymphocytes # (A) 1.8 k/uL (1.0-4.8); Lymphocytes % (A) 23 %; MCH 31.6 pg (25.0-35.0); MCHC 35.6 g/dL (31.0-37.0); MCV 88.8 fL (80.0-100.0); Mean Platelet Volume 8.8; Monocytes # (A) 0.6 k/uL (0-1.0); Monocytes % (A) 7 %; Neutrophils # (A) 4.7 k/uL (1.3-7.7); Neutrophils % (A) 59 %; Platelet Count 226 k/uL (150-450); RBC 3.81 m/uL (4.30-5.90); RDW 13.7 % (11.5-15.5); WBC 7.9 k/uL (3.8-10.6)
--- NOTE | 2022-10-09 00:15 | XR ---
EXAMINATION TYPE: XR abdomen acute w cxr DATE OF EXAM: 10/08/2022 COMPARISON: Chest x-ray 07/10/2022 HISTORY: Chest pain TECHNIQUE: 4 views FINDINGS: Heart and mediastinum are normal. Lungs are clear. Diaphragm is normal. There is no sign of intestinal obstruction or pneumoperitoneum. Fecal pattern is normal. There are numerous surgical cli ps in the mid abdomen. No evidence of a mass. There is lumbar dextroscoliosis. There are numerous phl eboliths in the pelvis. IMPRESSION: No active cardiomegaly disease. Nonacute abdomen. Heart and lungs not changed compared to old exam.
[2022-10-09 00:25] LABS: Albumin 3.4 g/dL (3.5-5.0); Calcium 8.5 mg/dL (8.4-10.2); Magnesium 2.1 mg/dL (1.6-2.3); Total Bilirubin 0.3 mg/dL (0.2-1.3); Total Protein 5.9 g/dL (6.3-8.2)
[2022-10-09 00:26] LABS: INR 0.9 (<1.2); Partial Thromboplastin Time 25.5 sec (22.0-30.0); Prothrombin Time 9.7 sec (9.0-12.0)
[2022-10-09 01:20] VITALS: BP 110/68; PULSE 74; RESP 16; TEMP 97.9
== END 2022-10-09 01:20 | disposition home or self-care (01) ==
LOC: EC 22:19
DX: R07.89 Other chest pain (principal); E78.5 Hyperlipidemia, unspecified; I25.10 Atherosclerotic heart disease of native coronary artery without angina pectoris; I10 Essential (primary) hypertension; Z95.9 Presence of cardiac and vascular implant and graft, unspecified; Z88.1 Allergy status to other antibiotic agents; Z79.899 Other long term (current) drug therapy; Z87.891 Personal history of nicotine dependence
CPT/HCPCS: 36415; 74022; 80053; 82150; 83690; 83735; 84484; 85025; 85610; 85730; 93005; 99285

== ENCOUNTER 2023-05-25 16:36 | Inpatient (IN) | payer OTHER, MEDICARE ==
[2023-05-25 17:19] LABS: Basophils % (A) 0 %; Eosinophils # (A) 1.5 k/uL (0-0.7); Eosinophils % (A) 24 %; HCT 37.1 % (39.0-53.0); HGB 12.5 gm/dL (13.0-17.5); Lymphocytes # (A) 1.3 k/uL (1.0-4.8); Lymphocytes % (A) 21 %; MCH 30.7 pg (25.0-35.0); MCHC 33.7 g/dL (31.0-37.0); MCV 91.3 fL (80.0-100.0); Monocytes # (A) 0.4 k/uL (0-1.0); Monocytes % (A) 7 %; Neutrophils # (A) 2.9 k/uL (1.3-7.7); Neutrophils % (A) 46 %; Platelet Count 295 k/uL (150-450); RBC 4.06 m/uL (4.30-5.90); RDW 14.5 % (11.5-15.5); WBC 6.3 k/uL (3.8-10.6)
[2023-05-25 17:30] LABS: INR 0.9 (<1.2); Partial Thromboplastin Time 24.9 sec (22.0-30.0); Prothrombin Time 10.1 sec (9.0-12.0)
[2023-05-25 17:35] LABS: ALT 17 U/L (4-49); AST 24 U/L (17-59); African American GFR (CKD) 51 (>60 ml/min/1.73 sqM); Albumin 3.7 g/dL (3.5-5.0); Alkaline Phosphatase 57 U/L (38-126); Anion Gap 4 mmol/L; Blood Urea Nitrogen 34 mg/dL (9-20); Calcium 10.5 mg/dL (8.4-10.2); Carbon Dioxide 27 mmol/L (22-30); Chloride 103 mmol/L (98-107); Glucose 84 mg/dL (74-99); Non-African American GFR(CKD) 44 (>60 ml/min/1.73 sqM); Potassium 4.9 mmol/L (3.5-5.1); Sodium 134 mmol/L (137-145); Total Bilirubin 0.5 mg/dL (0.2-1.3); Total Protein 6.5 g/dL (6.3-8.2)
--- NOTE | 2023-05-25 17:38 | XR ---
EXAMINATION TYPE: XR chest 2V DATE OF EXAM: 05/25/2023 5:29 PM CLINICAL INDICATION:Male, 82 years old with history of Chest Pain; COMPARISON: Chest radiographs from 07/10/2022 TECHNIQUE: XR chest 2V Frontal and lateral views of the chest. FINDINGS: Lungs/Pleura: There is no evidence of pleural effusion, focal consolidation, or pneumothorax. Pulmonary vascularity: Unremarkable. Heart/mediastinum: Cardiomediastinal silhouette is unremarkable. Musculoskeletal: No acute osseous pathology. IMPRESSION: No acute cardiopulmonary disease/process.
[2023-05-25 17:39] LABS: RBC Morphology Normal
--- NOTE | 2023-05-25 17:53 | ED ---
General Adult HPI - General Chief complaint: Chest Pain Stated complaint: chest pain Time Seen by Provider: 05/25/23 16:55 Source: patient, RN notes reviewed, old records reviewed Limitations: no limitations - History of Present Illness Initial comments: This is an 82-year-old male who presents emergency Department complaining of chest pain. Patient states she was at work not doing anything heavy when he started having pain across the front of his chest and across his back per patient states it lasts about 2 minutes and he was mildly short of breath and then it subsided. Patient states he does have a history of kidney cancer with metastatic to the lung but his been stable for about 4-5 years. Patient denies any nausea. Patient denies any abdominal pain. Patient denies any recent fever chills or cough. Patient denies any headache patient denies lightheadedness or dizziness. Patient denies any numbness or weakness. - Related Data Home Medications Medication Instructions Recorded Confirmed Tamsulosin HCl [Flomax] 0.4 mg PO HS 10/12/17 07/10/22 Metoprolol Tartrate [Lopressor] 25 mg PO BID 07/10/22 07/10/22 Pravastatin Sodium [Pravachol] 40 mg PO HS 07/10/22 07/10/22 Previous Rx's Medication Instructions Recorded amLODIPine [Norvasc] 5 mg PO BID #60 tab 02/12/21 Allergies Allergy/AdvReac Type Severity Reaction Status Date / Time atorvastatin calcium Allergy JOINT PAIN Verified 07/10/22 10:54 [From Lipitor] clindamycin AdvReac JOINT PAIN Verified 07/10/22 10:54 Review of Systems ROS Statement: Those systems with pertinent positive or pertinent negative responses have been documented in the HPI. ROS Other: All systems not noted in ROS Statement are negative. Past Medical History Past Medical History: Coronary Artery Disease (CAD), Cancer, Chest Pain / Angina, GERD/Reflux, Hyperlipidemia, Hypertension, Myocardial Infarction ([place]), Osteoarthritis (OA), Prostate Disorder, Renal Disease Additional Past Medical History / Comment(s): Recent upper respiratory tract infection, L renal cancer with nephrectomy/mets L lung and sternum/no longer taking oral chemo d/t it was affecting his kidney/states he receives nfusion once a month but does not know what type of infusion, chronic renal failure sta ge IV, BPH, newsome's esophagus, gastritis, dry mouth, chronic low back pain, arthritis R great toe. Last Myocardial Infarction Date:: 02/29/20 History of Any Multi-Drug Resistant Organisms: None Reported Past Surgical History: Heart Catheterization, Orthopedic Surgery Additional Past Surgical History / Comment(s): Left nephrectomy 2016, RT HAND 2ND DIGIT LOST TOP OF FINGER IN CRUSHING INJURY, EGDs, colonoscopy, bilateral cataract removals/lens implants. Past Anesthesia/Blood Transfusion Reactions: No Reported Reaction Past Psychological History: Depression Smoking Status: Former smoker - Past Family History Father Family Medical History: Cancer, Hypertension, Myocardial Infarction ([place]) Additional Family Medical History / Comment(s): SKIN CANCER Mother Family Medical History: Cancer Additional Family Medical History / Comment(s): breast cancer - throat cancer Sister(s) Family Medical History: Cancer Additional Family Medical History / Comment(s): skin/breast and throat cancer General Exam - General Exam Comments Initial Comments: GENERAL: Patient is well-developed and well-nourished. Patient is nontoxic and well- hydrated and is in no acute distress. ENT: Neck is soft and supple. No significant lymphadenopathy is noted. Oropharynx is clear. Moist mucous membranes. Neck has full range of motion without eliciting any pain. EYES: The sclera were anicteric and conjunctiva were pink and moist. Extraocular movements were intact and pupils were equal round and reactive to light. Eyelids were unremarkable. PULMONARY: Unlabored respirations. Good breath sounds bilaterally. No audible rales rhonchi or wheezing was noted. CARDIOVASCULAR: There is a regular rate and rhythm without any murmurs gallops or rubs. ABDOMEN: Soft and nontender with normal bowel sounds. SKIN: Skin is clear with no lesions or rashes and otherwise unremarkable. NEUROLOGIC: Patient is alert and oriented x3. Cranial nerves II through XII are grossly intact. Motor and sensory are also intact. Normal speech, volume and content. Symmetrical smile. MUSCULOSKELETAL: Normal extremities with adequate strength and full range of motion. LYMPHATICS: No significant lymphadenopathy is noted PSYCHIATRIC: Normal psychiatric evaluation. Limitations: no limitations Course Vital Signs 05/25/23 05/25/23 05/25/23 16:44 17:25 17:30 Temperature 98.6 F Pulse Rate 65 57 L 57 L Respiratory 20 18 Rate Blood Pressure 112/63 118/70 118/70 O2 Sat by Pulse 99 98 96 Oximetry 05/25/23 05/25/23 18:00 18:30 Temperature Pulse Rate 63 61 Respiratory Rate Blood Pressure 128/68 117/66 O2 Sat by Pulse 97 96 Oximetry Medical Decision Making - Medical Decision Making EKG shows sinus rhythm at 61 bpm OK interval is 170 QRS 96 QT interval 388 QTC is 391. Patient's EKG shows no ST segment elevation or depression. Was pt. sent in by a medical professional or institution (, PA, SEARCH ENGINE OPTIMIZATION STRATEGIST, urgent care, hospital, or penitentiary...) When possible be specific @ -No Did you speak to anyone other than the patient for history (EMS, parent, family, police, friend...)? What history was obtained from this source @ -No Did you review nursing and triage notes (agree or disagree)? Why? @ -I reviewed and agree with nursing and triage notes Were old charts reviewed (outside hosp., previous admission, EMS record, old EKG, old radiological studies, urgent care reports/EKG's, penitentiary records)? Report findings @ -Reviewed prior charts prior lab work on this patient and prior radiological studies Differential Diagnosis (chest pain, altered mental status, abdominal pain women, abdominal pain men, vaginal bleeding, weakness, fever, dyspnea, syncope, headache, dizziness, GI bleed, back pain, seizure, CVA, palpatations, mental health, musculoskeletal)? @ -Differential Chest Pain: Stable Angina, Unstable Angina, STEMI, NSTEMI Aortic Dissection, Pneumothorax, Musculoskeletal, Esophageal Spasm GERD, Cholecystitis, Pancreatitis, Zoster, this is not meant to be an all-inclusive list. EKG interpreted by me (3pts min.). @ -As above X-rays interpreted by me (1pt min.). @ -Chest x-ray shows no acute abnormality CT interpreted by me (1pt min.). @ -None done U/S interpreted by me (1pt. min.). @ -None done What testing was considered but not performed or refused? (CT, X-rays, U/S, labs)? Why? @ -None What meds were considered but not given or refused? Why? @ -None Did you discuss the management of the patient with other professionals (professionals i.e. , CECI, SEARCH ENGINE OPTIMIZATION STRATEGIST, lab, RT, psych nurse, social worker psychiatric, flight engineer performance qualified, teacher, probation officer, case technician)? Give summary @ -I spoke with some physicians and he agreed to admit the patient Was smoking cessation discussed for >3mins.? @ -No Was critical care preformed (if so, how long)? @ -No Were there social determinants of health that impacted care today? How? (Homelessness, low income, unemployed, alcoholism, drug addiction, transportation, low edu. Level, literacy, decrease access to med. care, alf, rehab)? @ -No Was there de-escalation of care discussed even if they declined (Discuss DNR or withdrawal of care, Hospice)? DNR status @ -No What co-morbidities impacted this encounter? (DM, HTN, Smoking, COPD, CAD, Cancer, CVA, ARF, Chemo, Hep., AIDS, mental health diagnosis, sleep apnea, morbid obesity)? @ -None Was patient admitted / discharged? Hospital course, mention meds given and route, prescriptions, significant lab abnormalities, going to OR and other pertinent info. @ -Patient was chest pain free throughout his ED course. I gave the patient aspirin and Nitropaste. I spoke with some physicians agreed to admit the patient admitted the patient wrote admitting orders I consulted cardiology Undiagnosed new problem with uncertain prognosis? @ -No Drug Therapy requiring intensive monitoring for toxicity (Heparin, Nitro, Insulin, Cardizem)? @ -No Were any procedures done? @ -No Diagnosis/symptom? @ -Chest pain Acute, or Chronic, or Acute on Chronic? @ -Acute Uncomplicated (without systemic symptoms) or Complicated (systemic symptoms)? @ -Complicated Side effects of treatment? @ -No Exacerbation, Progression, or Severe Exacerbation? @ -No Poses a threat to life or bodily function? How? (Chest pain, [place], [place], pneumonia, PE, COPD, DKA, ARF, appy, cholecystitis, CVA, Diverticulitis, Homicidal, Suicidal, threat to staff... and all critical care pts) @ -Yes this could lead to poor perfusion and end organ dysfunction - Lab Data Result diagrams: 05/25/23 17:05/25/23 17:09 Lab Results 05/25/23 05/25/23 05/25/23 Range/Units 17: 17:09 17:09 WBC 6.3 (3.8-10.6) k/uL RBC 4.06 L (4.30-5.90) m/uL Hgb 12.5 L (13.0-17.5) gm/dL Hct 37.1 L (39.0-53.0) % MCV 91.3 (80.0-100.0) fL MCH 30.7 (25.0-35.0) pg MCHC 33.7 (31.0-37.0) g/dL RDW 14.5 (11.5-15.5) % Plt Count 295 (150-450) k/uL MPV 9.0 Neutrophils % 46 % Lymphocytes % 21 % Monocytes % 7 % Eosinophils % 24 % Basophils % 0 % Neutrophils # 2.9 (1.3-7.7) k/uL Lymphocytes # 1.3 (1.0-4.8) k/uL Monocytes # 0.4 (0-1.0) k/uL Eosinophils # 1.5 H (0-0.7) k/uL Basophils # 0.0 (0-0.2) k/uL Manual Slide Review Performed RBC Morphology Normal PT 10.1 (9.0-12.0) sec INR 0.9 (<1.2) APTT 24.9 (22.0-30.0) sec Sodium 134 L (137-145) mmol/L Potassium 4.9 (3.5-5.1) mmol/L Chloride 103 (98-107) mmol/L Carbon Dioxide 27 (22-30) mmol/L Anion Gap 4 mmol/L BUN 34 H (9-20) mg/dL Creatinine 1.48 H (0.66-1.25) mg/dL Est GFR (CKD-EPI)AfAm 51 (>60 ml/min/1.73 sqM) Est GFR (CKD-EPI)NonAf 44 (>60 ml/min/1.73 sqM) Glucose 84 (74-99) mg/dL Calcium 10.5 H (8.4-10.2) mg/dL Magnesium 2.0 (1.6-2.3) mg/dL Total Bilirubin 0.5 (0.2-1.3) mg/dL AST 24 (17-59) U/L ALT 17 (4-49) U/L Alkaline Phosphatase 57 (38-126) U/L Troponin I (0.000-0.034) ng/mL Total Protein 6.5 (6.3-8.2) g/dL Albumin 3.7 (3.5-5.0) g/dL 05/25/23 Range/Units 17:09 WBC (3.8-10.6) k/uL RBC (4.30-5.90) m/uL Hgb (13.0-17.5) gm/dL Hct (39.0-53.0) % MCV (80.0-100.0) fL MCH (25.0-35.0) pg MCHC (31.0-37.0) g/dL RDW (11.5-15.5) % Plt Count (150-450) k/uL MPV Neutrophils % % Lymphocytes % % Monocytes % % Eosinophils % % Basophils % % Neutrophils # (1.3-7.7) k/uL Lymphocytes # (1.0-4.8) k/uL Monocytes # (0-1.0) k/uL Eosinophils # (0-0.7) k/uL Basophils # (0-0.2) k/uL Manual Slide Review RBC Morphology PT (9.0-12.0) sec INR (<1.2) APTT (22.0-30.0) sec Sodium (137-145) mmol/L Potassium (3.5-5.1) mmol/L Chloride (98-107) mmol/L Carbon Dioxide (22-30) mmol/L Anion Gap mmol/L BUN (9-20) mg/dL Creatinine (0.66-1.25) mg/dL Est GFR (CKD-EPI)AfAm (>60 ml/min/1.73 sqM) Est GFR (CKD-EPI)NonAf (>60 ml/min/1.73 sqM) Glucose (74-99) mg/dL Calcium (8.4-10.2) mg/dL Magnesium (1.6-2.3) mg/dL Total Bilirubin (0.2-1.3) mg/dL AST (17-59) U/L ALT (4-49) U/L Alkaline Phosphatase (38-126) U/L Troponin I <0.012 (0.000-0.034) ng/mL Total Protein (6.3-8.2) g/dL Albumin (3.5-5.0) g/dL Disposition Clinical Impression: Chest pain Disposition: ADMITTED IP TO THIS HOSP Referrals: [facility],Clinic [Primary Care Provider] - 1-2 days Time of Disposition: 19:30
[2023-05-25] MEDS ORDERED: NITROGLYCERIN OINT 1 INCH/GM PACKET TOPICAL STA (18:05)
[2023-05-25] MEDS ORDERED: ASPIRIN 81 MG PO STA (18:05)
[2023-05-25] MEDS ORDERED: NITROGLYCERIN SL TABS 0.4 MG TAB SUBLINGUAL PRN (19:30)
[2023-05-25] MEDS: NITROGLYCERIN OINT 1 INCH/GM PACKET TOPICAL SCH (23:02)
--- NOTE | 2023-05-26 02:28 | P.HPIM ---
History of Present Illness H&P Date: 05/25/23 Chief Complaint: Chest pain 82-year-old male with history of kidney cancer on chemotherapy infusions, hypertension Patient coming in for sudden onset chest pain describes it as sudden onset burning sensation across his chest and back while at work he doesn't do anything with heavy lifting. Around 1:30 PM he suddenly while working noticed this pain which she describes a severe 9 out of 10 in severity was not associated with any shortness of breath palpitations nausea vomiting profusely sweating denies any coughing fevers chills history of blood clots history of recent travel her hospital stay. He rested for about couple minutes and was gone however he called his and she was concerned decided to bring him to the hospital for evaluation. Patient denies any cardiac history in the past however he did have a cardiac cath done about 1.5 years ago he believes it was normal at the time. He denies any tobacco smoking or heavy alcohol he does admit to marijuana review of systems Pertinent positives as noted in HPI. All other systems were reviewed and are n egative on exam Constitutional: No acute distress, conversant, pleasant Eyes: Anicteric sclerae, moist conjunctiva, Pupils equal round reactive to light ENMT: NC/AT Oropharynx clear, no erythema, or exudates Neck: Supple, no masses, or JVD No carotid bruits No thyromegaly Lungs: Clear to auscultation Clear to percussion Normal respiratory effort, no accessory muscle use Cardiovascular: Heart regular in rate and rhythm, No murmurs, gallops, or rubs No peripheral edema Abdominal: Soft Nontender, no guarding, rebound or rigidity Abdomen moving with respiration Normoactive bowel sounds No hepatomegaly, No splenomegaly No palpable mass No abdominal wall hernia noted Skin: Normal temperature, tone, texture, turgor No induration No subcutaneous nodules No rash, lesions No ulcers Extremities: No digital cyanosis No clubbing Pedal pulses intact and symmetrical Radial pulses intact and symmetrical No calf tenderness Psychiatric: Alert and oriented to person, place and time Appropriate affect fair judgement Neuro Muscles Strength 5/5 in all 4 extremities Sensation to light touch grossly present throughout Cranial nerves II-XII grossly intact Lymphatics: no palpable cervical or supraclavicular lymph nodes Past Medical History Past Medical History: Coronary Artery Disease (CAD), Cancer, Chest Pain / Angina, GERD/Reflux, Hyperlipidemia, Hypertension, [place] Infarction ([place]), Osteoarthritis (OA), Prostate Disorder, Renal Disease Additional Past Medical History / Comment(s): Recent upper respiratory tract infection, L renal cancer with nephrectomy/mets L lung and sternum/no longer taking oral chemo d/t it was affecting his kidney/states he receives nfusion once a month but does not know what type of infusion, chronic renal failure stage IV, BPH, newsome's esophagus, gastritis, dry mouth, chronic low back pain, arthritis R great toe. Last Myocardial Infarction Date:: 02/29/20 History of Any Multi-Drug Resistant Organisms: None Reported Past Surgical History: Heart Catheterization, Orthopedic Surgery Additional Past Surgical History / Comment(s): Left nephrectomy 2016, RT HAND 2ND DIGIT LOST TOP OF FINGER IN CRUSHING INJURY, EGDs, colonoscopy, bilateral cataract removals/lens implants. Past Anesthesia/Blood Transfusion Reactions: No Reported Reaction Past Psychological History: Depression Additional Psychological History / Comment(s): Pt resides with his spouse. He is an [employer] . He is independent. 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 Smoking Status: Former smoker Past Alcohol Use History: Rare Additional Past Alcohol Use History / Comment(s): Pt started smoking in 1960 and quit in the 1970s. Past Drug Use History: Marijuana Additional Drug Use History / Comment(s): Pt uses edible marijuiana on occasion. - Past Family History Father Family Medical History: Cancer, Hypertension, Myocardial Infarction ([place]) Additional Family Medical History / Comment(s): SKIN CANCER Mother Family Medical History: Cancer Additional Family Medical History / Comment(s): breast cancer - throat cancer Sister(s) Family Medical History: Cancer Additional Family Medical History / Comment(s): skin/breast and throat cancer Medications and Allergies Home Medications Medication Instructions Recorded Confirmed Type Tamsulosin HCl [Flomax] 0.4 mg PO HS 10/12/17 05/25/23 History Metoprolol Tartrate [Lopressor] 25 mg PO DAILY 07/10/22 05/25/23 History Pravastatin Sodium [Pravachol] 40 mg PO HS 07/10/22 05/25/23 History Aspirin EC [Ecotrin Low Dose] 81 mg PO DAILY 05/25/23 05/25/23 History Diphenox-Atrop 2.5-0.025 mg 1 tab PO QID PRN 05/25/23 05/25/23 History [Lomotil] amLODIPine [Norvasc] 5 mg PO DAILY 05/25/23 05/25/23 History Allergies Allergy/AdvReac Type Severity Reaction Status Date / Time atorvastatin calcium Allergy JOINT PAIN Verified 05/25/23 20:48 [From Lipitor] clindamycin AdvReac JOINT PAIN Verified 05/25/23 20:48 Physical Exam Vitals: Vital Signs Temp Pulse Pulse Resp BP BP Pulse Ox 05/25/23 23:57 98 F 61 18 113/66 98 05/25/23 20:50 97.7 F 80 18 167/75 96 05/25/23 20:00 74 137/89 96 05/25/23 19:30 60 136/77 96 05/25/23 19:00 64 140/73 95 05/25/23 18:30 61 117/66 96 05/25/23 18:00 63 128/68 97 05/25/23 17:30 57 L 118/70 96 05/25/23 17:25 57 L 18 118/70 98 05/25/23 16:44 98.6 F 65 20 112/63 99 Intake and Output 05/25/23 05/25/23 05/26/23 14:59 22:59 06:59 Other: Weight 54.431 kg Results CBC & Chem 7: 05/25/23 17:09 05/25/23 17:09 Labs: Abnormal Lab Results - Last 24 Hours (Table) 05/25/23 05/25/23 Range/Units 17:09 17:09 RBC 4.06 L (4.30-5.90) m/uL Hgb 12.5 L (13.0-17.5) gm/dL Hct 37.1 L (39.0-53.0) % Eosinophils # 1.5 H (0-0.7) k/uL Sodium 134 L (137-145) mmol/L BUN 34 H (9-20) mg/dL Creatinine 1.48 H (0.66-1.25) mg/dL Calcium 10.5 H (8.4-10.2) mg/dL Thrombosis Risk Factor Assmnt - Choose All That Apply Any of the Below Risk Factors Present?: Yes Other Risk Factors: Yes Each Risk Factor Represents 3 Points: Age 75 years or older Other congenital or acquired thrombophilia - If yes, enter type in comment: No Thrombosis Risk Factor Assessment Total Risk Factor Score: 3 Thrombosis Risk Factor Assessment Level: Moderate Risk Assessment and Plan Assessment: 82-year-old male coming in for evaluation of sudden onset chest pain I discussed the case with the ED doctor accepted the admission for chest pain to rule out acute coronary syndrome Atypical chest pain Monitor vital signs Cardiac monitoring EKG showed no acute ST changes Initial troponin is negative Continue with aspirin Patient is ALLERGIC to Lipitor Continue with amlodipine and metoprolol BPH Continue with Flomax CK D Stable BUN 34 creatinine 1.4 Sodium 134 potassium 4.9 Avoid nephrotoxic meds Monitor urine output Rest of blood work unremarkable white count 6.3 hemoglobin 12.5 Full code DVT prophylaxis
[2023-05-26] MEDS: NITROGLYCERIN OINT 1 INCH/GM PACKET TOPICAL SCH ×2 (05:59→11:43)
[2023-05-26] MEDS ORDERED: METOPROLOL TARTRATE 25 MG TAB PO SCH (09:00)
[2023-05-26] MEDS ORDERED: ASPIRIN 325 MG TAB PO SCH (09:00)
[2023-05-26] MEDS ORDERED: amLODIPine 5 MG TAB PO SCH (09:00)
[2023-05-26] MEDS ORDERED: ASPIRIN 81 MG PO SCH (09:00)
[2023-05-26] MEDS: HEPARIN SODIUM,PORCINE 5,000 UNIT/ML 1 ML VIAL SQ SCH ×2 (09:36→15:55)
[2023-05-26 09:42] VITALS: RESP 16
--- NOTE | 2023-05-26 11:36 | P.CRDCN ---
History of Present Illness History of present illness: HISTORY OF PRESENTING ILLNESS This is a pleasant 82-year-old male past medical history significant for GERD, nonobstructive coronary artery disease, dyslipidemia, hypertension, left renal carcinoma with sternal mets s/p left nephrectomy who follows in the office with Dr. Sultana. We have been asked to see in consultation for chest pain. He states that he was going about his day yesterday and started have a chest burning sensation was lasted for 15-20 minutes. He denies any associated nausea, diaphoresis, shortness breath. He denies any association with exertion or with anything he ate. Pain eventually subsided. He is having other left- sided chest pain worse with deep inspiration. He did have heart catheterization approximately 3 years ago which showed mild to moderate nonobstructive CAD. EKG shows sinus rhythm without significant ST or T-wave abnormalities. Currently states he feels back to his normal self. 02/2020:He underwent cardiac catheterization secondary to mild troponin elevation revealing 20-30% plaque of the proximal LAD, an area of stenosis at the takeoff of the second diagonal branch 40-50%, OM branch of the circumflex with a 20-30% plaque in mid intimal disease of the RCA 20%. REVIEW OF SYSTEMS At the time of my exam CONSTITUTIONAL: +lightheadedness +presyncope +dizziness Denies fever or chills. CARDIOVASCULAR: Denies chest pain,Denies shortness of breath, orthopnea, PND or palpitations. RESPIRATORY: Denies cough. GASTROINTESTINAL:Denies abdominal pain Denies diarrhea, constipation, nausea or vomiting. MUSCULOSKELETAL: Denies myalgias. NEUROLOGIC: Denies numbness, tingling or weakness. ENDOCRINE: Denies fatigue, weight change, polydipsia or polyurina. GENITOURINARY: Denies burning, hematuria or urgency with micturation. HEMATOLOGIC: Denies history of anemia or bleeding. PHYSICAL EXAMINATION Blood pressure heart rate afebrile and maintaining oxygen saturation on room air. CONSTITUTIONAL: No apparent distress. HEENT: Head is normocephalic. Pupils are equal, round. Sclerae anicteric. Mucous membranes of the mouth are moist. No JVD. No carotid bruit. CHEST EXAMINATION: Lungs are clear to auscultation. No chest wall tenderness is noted on palpation or with deep breathing. HEART EXAMINATION: Regular rate and rhythm. S1, S2 heard., gallops or rub. ABDOMEN: Soft, nontender. Positive bowel sounds. EXTREMITIES: 2+ peripheral pulses, no lower extremity edema and no calf tenderness. NEUROLOGIC EXAMINATION: Patient is awake, alert and oriented x3. ASSESSMENT Atypical chest pain Mild to moderate CAD by prior heart catheterization February 2020 Hypertension Chronic kidney disease s/p left nephrectomy Renal carcinoma Dyslipidemia Former nicotine dependence PLAN Patient's chest pain overall is fairly atypical and troponins negative, ACS ruled out. Echocardiogram performed which shows preserved EF without significa nt valvular disease. Patient currently chest pain-free. Given recent catheterization and symptoms typical we will continue to monitor him symptomatically. Discussed if symptoms return, call the office or present back to the ER. Patient stable however for discharge home with possible outpatient s tress testing, outpatient follow-up. Past Medical History Past Medical History: Coronary Artery Disease (CAD), Cancer, Chest Pain / Angina, GERD/Reflux, Hyperlipidemia, Hypertension, Myocardial Infarction ([place]), Osteoarthritis (OA), Prostate Disorder, Renal Disease Additional Past Medical History / Comment(s): Recent upper respiratory tract infection, L renal cancer with nephrectomy/mets L lung and sternum/no longer taking oral chemo d/t it was affecting his kidney/states he receives nfusion once a month but does not know what type of infusion, chronic renal failure stage IV, BPH, newsome's esophagus, gastritis, dry mouth, chronic low back pain, arthritis R great toe. Last Myocardial Infarction Date:: 02/29/20 History of Any Multi-Drug Resistant Organisms: None Reported Past Surgical History: Heart Catheterization, Orthopedic Surgery Additional Past Surgical History / Comment(s): Left nephrectomy 2016, RT HAND 2ND DIGIT LOST TOP OF FINGER IN CRUSHING INJURY, EGDs, colonoscopy, bilateral cataract removals/lens implants. Past Anesthesia/Blood Transfusion Reactions: No Reported Reaction Past Psychological History: Depression Additional Psychological History / Comment(s): Pt resides with his spouse. He is an [employer] . He is independent. 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 Smoking Status: Former smoker Past Alcohol Use History: Rare Additional Past Alcohol Use History / Comment(s): Pt started smoking in 1960 and quit in the 1970s. Past Drug Use History: Marijuana Additional Drug Use History / Comment(s): Pt uses edible marijuiana on occasion. - Past Family History Father Family Medical History: Cancer, Hypertension, Myocardial Infarction ([place]) Additional Family Medical History / Comment(s): SKIN CANCER Mother Family Medical History: Cancer Additional Family Medical History / Comment(s): breast cancer - throat cancer Sister(s) Family Medical History: Cancer Additional Family Medical History / Comment(s): skin/breast and throat cancer Medications and Allergies Home Medications Medication Instructions Recorded Confirmed Type Tamsulosin HCl [Flomax] 0.4 mg PO HS 10/12/17 05/25/23 History Metoprolol Tartrate [Lopressor] 25 mg PO DAILY 07/10/22 05/25/23 History Pravastatin Sodium [Pravachol] 40 mg PO HS 07/10/22 05/25/23 History Aspirin EC [Ecotrin Low Dose] 81 mg PO DAILY 05/25/23 05/25/23 History Diphenox-Atrop 2.5-0.025 mg 1 tab PO QID PRN 05/25/23 05/25/23 History [Lomotil] amLODIPine [Norvasc] 5 mg PO DAILY 05/25/23 05/25/23 History Allergies Allergy/AdvReac Type Severity Reaction Status Date / Time atorvastatin calcium Allergy JOINT PAIN Verified 05/25/23 20:48 [From Lipitor] clindamycin AdvReac JOINT PAIN Verified 05/25/23 20:48 Physical Exam Vitals: Vital Signs Temp Pulse Pulse Resp BP BP Pulse Ox 05/26/23 09:33 97.7 F 62 16 119/68 96 05/26/23 03:31 97.9 F 69 14 114/62 97 05/25/23 23:57 98 F 61 18 113/66 98 05/25/23 20:50 97.7 F 80 18 167/75 96 05/25/23 20:00 74 137/89 96 05/25/23 19:30 60 136/77 96 05/25/23 19:00 64 140/73 95 05/25/23 18:30 61 117/66 96 05/25/23 18:00 63 128/68 97 05/25/23 17:30 57 L 118/70 96 05/25/23 17:25 57 L 18 118/70 98 05/25/23 16:44 98.6 F 65 20 112/63 99 Intake and Output 05/25/23 05/26/23 05/26/23 22:59 06:59 14:59 Other: Weight 54.431 kg Results 05/25/23 17:09 05/25/23 17:09 Cardiac Enzymes 05/25/23 05/25/23 05/25/23 Range/Units 17:09 17:09 20:56 AST 24 (17-59) U/L Troponin I <0.012 <0.012 (0.000-0.034) ng/mL 05/25/23 Range/Units 23:52 AST (17-59) U/L Troponin I <0.012 (0.000-0.034) ng/mL Coagulation 05/25/23 Range/Units 17:09 PT 10.1 (9.0-12.0) sec APTT 24.9 (22.0-30.0) sec CBC 05/25/23 Range/Units 17:09 WBC 6.3 (3.8-10.6) k/uL RBC 4.06 L (4.30-5.90) m/uL Hgb 12.5 L (13.0-17.5) gm/dL Hct 37.1 L (39.0-53.0) % Plt Count 295 (150-450) k/uL Comprehensive Metabolic Panel 05/25/23 Range/Units 17:09 Sodium 134 L (137-145) mmol/L Potassium 4.9 (3.5-5.1) mmol/L Chloride 103 (98-107) mmol/L Carbon Dioxide 27 (22-30) mmol/L BUN 34 H (9-20) mg/dL Creatinine 1.48 H (0.66-1.25) mg/dL Glucose 84 (74-99) mg/dL Calcium 10.5 H (8.4-10.2) mg/dL AST 24 (17-59) U/L ALT 17 (4-49) U/L Alkaline Phosphatase 57 (38-126) U/L Total Protein 6.5 (6.3-8.2) g/dL Albumin 3.7 (3.5-5.0) g/dL Current Medications Generic Name Dose Route Start Last Admin Trade Name Freq PRN Reason Stop Dose Admin Amlodipine Besylate 5 mg 05/26/23 09:00 05/26/23 09:37 Amlodipine 5 Mg Tab PO 5 mg DAILY JAY JAY Administration Aspirin 81 mg 05/26/23 09:00 05/26/23 09:37 Aspirin 81 Mg PO 81 mg DAILY JAY JAY Administration Heparin Sodium (Porcine) 5,000 unit 05/26/23 08:00 05/26/23 09:36 Heparin Sodium,Porcine 5,000 Unit/Ml 1 Ml Vial SQ 5,000 unit Q8HR JAY JAY Administration Metoprolol Tartrate 25 mg 05/26/23 09:00 05/26/23 09:37 Metoprolol Tartrate 25 Mg Tab PO 25 mg DAILY JAY JAY Administration Nitroglycerin 0.4 mg 05/25/23 19:30 Nitroglycerin Sl Tabs 0.4 Mg Tab SUBLINGUAL Q5M PRN Chest Pain Nitroglycerin 1 inch 05/26/23 00:00 05/26/23 05:59 Nitroglycerin Oint 1 Inch/Gm Packet TOPICAL 1 inch Q6HR JAY JAY Administration Tamsulosin HCl 0.4 mg 05/26/23 21:00 Tamsulosin 0.4 Mg Cap.Er.24h PO HS JAY JAY Intake and Output 05/25/23 05/26/23 05/26/23 22:59 06:59 14:59 Other: Weight 54.431 kg 05/25/23 17:09 05/25/23 17:09
[2023-05-26 11:41] VITALS: BP 120/71; PULSE 51; TEMP 98.3
[2023-05-26 13:57] VITALS: BMI 18.8
--- NOTE | 2023-05-26 14:01 | CA ---
Transthoracic Echo Report Name: Kurtis Mckeon Age: 82 Gender: M : 1940 Exam Date: 05/26/2023 11:15 Exam Location: [facility] Ht (in): 67 Wt (lb): 120 Ordering Physician: Parmjit Dash DO ([email or web address]) Attending/Referring Phys: [facility] Manager Myriam Cho RDCS Procedure CPT: Indications: re: CP Cardiac Hx: Technical Quality: Fair Contrast 1: Total Dose (mL): Contrast 2: Total Dose (mL): MEASUREMENTS (Male / Female) Normal Values 2D ECHO LV Diastolic Diameter PLAX 3.5 cm 4.2 - 5.9 / 3.9 - 5.3 cm LV Systolic Diameter PLAX 2.6 cm IVS Diastolic Thickness 1.3 cm 0.6 - 1.0 / 0.6 - 0.9 cm LVPW Diastolic Thickness 1.3 cm 0.6 - 1.0 / 0.6 - 0.9 cm LV Relative Wall Thickness 0.7 RV Internal Dim ED PLAX 2.8 cm LA Volume 42.7 cm??? 18 - 58 / 22 - 52 cm??? M-MODE Aortic Root Diameter MM 3.8 cm LA Systolic Diameter MM 3.1 cm LA Ao Ratio MM 0.8 AV Cusp Separation MM 1.8 cm DOPPLER AV Peak Velocity 126.1 cm/s AV Peak Gradient 6.4 mmHg AV Mean Velocity 77.9 cm/s AV Mean Gradient 2.9 mmHg AV Velocity Time Integral 31.7 cm AI Peak Velocity 384.0 cm/s AI Peak Gradient 59.0 mmHg AI Pressure Half Time 522.8 ms LVOT Peak Velocity 101.0 cm/s LVOT Peak Gradient 4.1 mmHg LVOT Velocity Time Integral 22.2 cm MV Area PHT 2.5 cm??? Mitral E Point Velocity 56.4 cm/s Mitral A Point Velocity 77.9 cm/s Mitral E to A Ratio 0.7 MV Deceleration Time 307.0 ms MV E' Velocity 6.6 cm/s Mitral E to MV E' Ratio 8.6 TR Peak Velocity 164.9 cm/s TR Peak Gradient 10.9 mmHg Right Ventricular Systolic Press 15.9 mmHg FINDINGS Left Ventricle Mildly increased left ventricular wall thickness. Left ventricular cavity size normal. Normal left ventricular systolic function with no obvious regional wall motion abnormalities. Left ventricular ejection fraction is estimated at 55-60 %. Right Ventricle Normal right ventricular size and function. Right ventricular systolic pressure within normal limits. Right Atrium Normal right atrial size. Left Atrium Normal left atrial size. Mitral Valve Structurally normal mitral valve. No mitral stenosis. Mild mitral annular calcification. Mild mitral regurgitation. Aortic Valve No aortic stenosis. [id number] aortic regurgitation. Eccentric aortic regurgitation jet directed at the mitral valve. Tricuspid Valve Structurally normal tricuspid valve. Mild tricuspid regurgitation. Pulmonic Valve Trace pulmonic regurgitation. Pericardium No pericardial effusion. Aorta Normal size aortic root and proximal ascending aorta. CONCLUSIONS Left ventricular ejection fraction is estimated at 55-60 %. No obvious regional wall motion abnormalities. [id number] eccentric aortic regurgitation. Calcific aortic valve Mild mitral regurgitation No significant chamber size abnormality Previewed by: Dr Juan Finley (Electronically Signed) Final Date: 26 May 2023 14:00
--- NOTE | 2023-05-26 14:30 | P.DS ---
Providers Date of admission: 05/25/23 19:30 Expected date of discharge: 05/26/23 Attending physician: Myron Huynh MD Consults: 05/25/23 19:30 Consult Physician Urgent Consulting Provider: [facility] Consult Reason/Comments: Chest pain Do you want consulting provider notified?: Yes Primary care physician: [facility] Hospital Course: Discharge Diagnosis: Atypical chest pain Mild to moderate CAD by prior heart catheterization February 2020 Hypertension Chronic kidney disease s/p left nephrectomy Renal carcinoma Dyslipidemia Former nicotine dependence Hospital Course: 82-year-old male with history of renal cancer on active chemotherapy, hypertension presenting with chest pain. Creatinine 1.40, calcium 10.5, troponin negative 3. EKG shows normal sinus rhythm. Chest x-ray shows no acute process. Cardiology evaluated the patient. Echocardiogram shows LVEF 55- 60%, mild to moderate aortic regurgitation. Currently chest pain-free. Patient being discharged home with follow-up with cardiology for outpatient stress test if needed. Patient seen and examined at bedside. Vital signs reviewed and stable. General: nontoxic, no distress, appears at stated age Derm: warm, dry Head: atraumatic, normocephalic, symmetric Eyes: EOMI, no lid lag, anicteric sclera Mouth: no lip lesion, mucus membranes moist Cardiovascular: S1S2 reg, no murmur Lungs: CTA bilateral, no rhonchi, no rales , no accessory muscle use Abdominal: soft, nontender to palpation, no guarding, no appreciable organomegaly Ext: no gross muscle atrophy, no edema, no contractures Neuro: CN II-XI grossly intact, no focal neuro deficits Psych: Alert, oriented, appropriate affect A total of 33 minutes of time were spent preparing this complex discharge summary. Patient was discharged on 05/26/23 at 14:25. Patient Condition at Discharge: Stable Plan - Discharge Summary Discharge Rx Participant: No New Discharge Prescriptions: Continue Tamsulosin HCl [Flomax] 0.4 mg PO HS Metoprolol Tartrate [Lopressor] 25 mg PO DAILY Diphenox-Atrop 2.5-0.025 mg [Lomotil] 1 tab PO QID PRN PRN Reason: Diarrhea Aspirin EC [Ecotrin Low Dose] 81 mg PO DAILY Pravastatin Sodium [Pravachol] 40 mg PO HS amLODIPine [Norvasc] 5 mg PO DAILY Discharge Medication List Tamsulosin HCl [Flomax] 0.4 mg PO HS 10/12/17 [History] Metoprolol Tartrate [Lopressor] 25 mg PO DAILY 07/10/22 [History] Pravastatin Sodium [Pravachol] 40 mg PO HS 07/10/22 [History] Aspirin EC [Ecotrin Low Dose] 81 mg PO DAILY 05/25/23 [History] Diphenox-Atrop 2.5-0.025 mg [Lomotil] 1 tab PO QID PRN 05/25/23 [History] amLODIPine [Norvasc] 5 mg PO DAILY 05/25/23 [History] Follow up Appointment(s)/Referral(s): Parmjit Dash DO [STAFF PHYSICIAN] - 2 Weeks [facility] [Primary Care Provider] - 1-2 days Patient Instructions/Handouts: Chest Pain (DC), Chest Wall Pain (GEN) Activity/Diet/Wound Care/Special Instructions: Please see baffle mounter outpatient for stress test. Discharge Disposition: HOME SELF-CARE
[2023-05-26 16:16] LABS: Chol/HDL Ratio 3.19 Ratio; LDL Cholesterol,Calculated 69.9 mg/dL (0.0-131.0); VLDL Calculation 15.94 mg/dL (5.00-40.00)
[2023-05-26] MEDS ORDERED: TAMSULOSIN 0.4 MG CAP.ER.24H PO SCH (21:00)
== END 2023-05-26 16:09 | disposition home or self-care (01) | DRG 313 ==
LOC: EC 16:36 → 3SCARD 19:30
PROVIDERS: ADMIT Internal Medicine; ATTEND Internal Medicine
DX: R07.89 Other chest pain (principal); C64.2 Malignant neoplasm of left kidney, except renal pelvis; C79.51 Secondary malignant neoplasm of bone; N18.4 Chronic kidney disease, stage 4 (severe); I25.10 Atherosclerotic heart disease of native coronary artery without angina pectoris; I12.9 Hypertensive chronic kidney disease with stage 1 through stage 4 chronic kidney disease, or unspecified chronic kidney disease; Z87.891 Personal history of nicotine dependence; E78.5 Hyperlipidemia, unspecified; K22.70 Barrett's esophagus without dysplasia; F32.A Depression, unspecified; M19.071 Primary osteoarthritis, right ankle and foot; G89.29 Other chronic pain; I25.2 Old myocardial infarction; I35.1 Nonrheumatic aortic (valve) insufficiency; K21.9 Gastro-esophageal reflux disease without esophagitis; N40.0 Benign prostatic hyperplasia without lower urinary tract symptoms; Z79.82 Long term (current) use of aspirin; Z79.899 Other long term (current) drug therapy; Z80.8 Family history of malignant neoplasm of other organs or systems; Z82.49 Family history of ischemic heart disease and other diseases of the circulatory system; Z88.8 Allergy status to other drugs, medicaments and biological substances; Z90.5 Acquired absence of kidney; Z88.1 Allergy status to other antibiotic agents; Z89.021 Acquired absence of right finger(s); Z71.3 Dietary counseling and surveillance
CPT/HCPCS: 36415; 71046; 80053; 80061; 83735; 84484; 85025; 85610; 85730; 93005; 93306; 99285

== ENCOUNTER 2023-08-18 15:41 | Emergency (ER) | payer OTHER, MEDICARE ==
--- NOTE | 2023-08-18 17:40 | ED ---
General Adult HPI - General Source: patient, RN notes reviewed Mode of arrival: ambulatory Limitations: no limitations <Maritza Alvarado - Last Filed: 08/18/23 17:38> <Koko Thacker - Last Filed: 08/18/23 23:16> - General Chief complaint: Abdominal Pain Stated complaint: Diarrhea Time Seen by Provider: 08/18/23 17:39 - History of Present Illness Initial comments: 82-year-old male presents to the emergency department for chief complaint of diarrhea 7-10 days. He states that it is gotten worse over the past couple of days with some diffuse abdominal pain associated with it. He denies any fever, chills. He does report that he has tried Imodium which has not improved his symptoms. (Maritza Alvarado) Dictation was produced using [employer] dictation software. please excuse any grammatical, word or spelling errors. Chief Complaint: 82-year-old male presents to the emergency department for diarrhea History of Present Illness: She is an 82-year-old male presents with 1 week of diarrhea. Patient has episodes every 2-3 hours. States it is watery. He does complain of some mild lower abdominal pain. Denies any fever or constitutional symptoms. No recent travel. Denies any ingestion of any suspicious foods. No obvious sick contacts. He does get infusions for what he describes as an unspecified cancer. The ROS documented in this emergency department record has been reviewed and confirmed by me. Those systems with pertinent positive or negative responses have been documented in the HPI. All other systems are other negative and/or noncontributory. (Koko Thacker) - Related Data Home Medications Medication Instructions Recorded Confirmed Tamsulosin HCl [Flomax] 0.4 mg PO HS 10/12/17 05/25/23 Metoprolol Tartrate [Lopressor] 25 mg PO DAILY 07/10/22 05/25/23 Pravastatin Sodium [Pravachol] 40 mg PO HS 07/10/22 05/25/23 Aspirin EC [Ecotrin Low Dose] 81 mg PO DAILY 05/25/23 05/25/23 Diphenox-Atrop 2.5-0.025 mg 1 tab PO QID PRN 05/25/23 05/25/23 [Lomotil] amLODIPine [Norvasc] 5 mg PO DAILY 05/25/23 05/25/23 Previous Rx's Medication Instructions Recorded valACYclovir HCL [Valtrex] 500 mg PO BID 7 Days #14 tab 06/20/23 Azithromycin [Zithromax Z Pack] 1 tab PO DIRECTED #6 tab 08/18/23 Diphenox-Atrop 2.5-0.025 mg 1 - 2 tab PO QID PRN 3 Days #24 tab 08/18/23 [Lomotil] Allergies Allergy/AdvReac Type Severity Reaction Status Date / Time atorvastatin calcium Allergy JOINT PAIN Verified 06/20/23 06:41 [From Lipitor] clindamycin AdvReac JOINT PAIN Verified 06/20/23 06:41 Review of Systems ROS Other: All systems not noted in ROS Statement are negative. <Maritza Alvarado - Last Filed: 08/18/23 17:38> ROS Other: All systems not noted in ROS Statement are negative. <Koko Thacker - Last Filed: 08/18/23 23:16> ROS Statement: Those systems with pertinent positive or pertinent negative responses have been documented in the HPI. 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 Last Myocardial Infarction Date:: 02/29/20 History of Any Multi-Drug Resistant Organisms: None Reported Past Surgical History: Heart Catheterization, Orthopedic Surgery Additional Past Surgical History / Comment(s): Left nephrectomy 2016, RT HAND 2ND DIGIT LOST TOP OF FINGER IN CRUSHING INJURY, EGDs, colonoscopy, bilateral cataract removals/lens implants. Past Anesthesia/Blood Transfusion Reactions: No Reported Reaction Past Psychological History: Depression Smoking Status: Former smoker Past Alcohol Use History: Rare Past Drug Use History: Marijuana - Past Family History Father Family Medical History: Cancer, Hypertension, Myocardial Infarction ([place]) Additional Family Medical History / Comment(s): SKIN CANCER Mother Family Medical History: Cancer Additional Family Medical History / Comment(s): breast cancer - throat cancer Sister(s) Family Medical History: Cancer Additional Family Medical History / Comment(s): skin/breast and throat cancer <Maritza Alvarado - Last Filed: 08/18/23 17:38> General Exam Limitations: no limitations <Maritza Alvarado - Last Filed: 08/18/23 17:38> <Koko Thacker - Last Filed: 08/18/23 23:16> - General Exam Comments Initial Comments: Visual Physical Exam Vital signs reviewed General: Well-appearing, nontoxic, no acute distress. Head: Normocephalic, atraumatic Eyes: PERRLA, EOMI ENT: Airway patent Chest: Nonlabored breathing Skin: No visual rash, normal skin tone Neuro: Alert and oriented 3 Musculoskeletal: No gross abnormalities (Maritza Alvarado) PHYSICAL EXAM: General Impression: Alert and oriented x3, not in acute distress HEENT: Normocephalic atraumatic, extra-ocular movements intact, pupils equal and reactive to light bilaterally, mucous membranes moist. Cardiovascular: Heart regular rate and rhythm Chest: Able to complete full sentences, no retractions, no tachypnea Abdomen: abdomen soft, non-tender, non-distended, no organomegaly Musculoskeletal: Pulses present and equal in all extremities, no peripheral edema Motor: no focal deficits noted Neurological: CN II-XII grossly intact, no focal motor or sensory deficits noted Skin: Intact with no visualized rashes Psych: Normal affect and mood (Koko Thacker) Course Vital Signs 08/18/23 08/18/23 16:22 20:58 Temperature 98.3 F 97.9 F Pulse Rate 80 81 Respiratory 16 16 Rate Blood Pressure 119/74 156/92 O2 Sat by Pulse 93 L 98 Oximetry Medical Decision Making <Maritza Alvarado - Last Filed: 08/18/23 17:38> - Lab Data Result diagrams: 08/18/23 18:15 08/18/23 18:15 <Koko Thacker - Last Filed: 08/18/23 23:16> - Medical Decision Making Quick note preformed by Maritza KulkaFRANCA Kelsey) Was pt. sent in by a medical professional or institution ([facility], [facility], urgent care, hospital, or shelter...) When possible be specific @ -[No] Did you speak to anyone other than the patient for history (EMS, parent, family, police, friend...)? What history was obtained from this source @ -[No] Did you review nursing and triage notes (agree or disagree)? Why? @ -[I reviewed and agree with nursing and triage notes] Were old charts reviewed (outside hosp., previous admission, EMS record, old EKG, old radiological studies, urgent care reports/EKG's, shelter records)? Report findings @ -[No old charts were reviewed] Differential Diagnosis (chest pain, altered mental status, abdominal pain women, abdominal pain men, vaginal bleeding, musculoskeletal, weakness, fever, dyspnea, syncope, headache, dizziness, GI bleed, back pain, seizure, CVA, palpatations, mental health)? @ -[not applicable] EKG interpreted by me (3pts min.). @ -[None done] X-rays interpreted by me (1pt min.). @ -[None done] CT interpreted by me (1pt min.). @ -To the abdomen and pelvis without contrast shows no acute processes. U/S interpreted by me (1pt. min.). @ -[None done] What testing was considered but not performed or refused? (CT, X-rays, U/S, labs)? Why? @ -[None] What meds were considered but not given or refused? Why? @ -[None] Did you discuss the management of the patient with other professionals (professionals i.e. [facility], [employer], lab, RT, psych nurse, social science professor, hob mill operator, teacher, restoration officer, case maker)? Give summary @ -[No] Was smoking cessation discussed for >3mins.? @ -[No] Was critical care preformed (if so, how long)? @ -[No] Were there social determinants of health that impacted care today? How? (Ho melessness, low income, unemployed, alcoholism, drug addiction, transportation, low edu. Level, literacy, decrease access to med. care, prison, rehab)? @ -[No] Was there de-escalation of care discussed even if they declined (Discuss DNR or withdrawal of care, Hospice)? DNR status @ -[No] What co-morbidities impacted this encounter? (DM, HTN, Smoking, COPD, CAD, Cancer, CVA, ARF, Chemo, Hep., AIDS, mental health diagnosis, sleep apnea, morbid obesity)? @ -[None] Was patient admitted / discharged? Hospital course, mention meds given and route, prescriptions, significant lab abnormalities, going to OR and other pertinent info. @ -82 y Old male presents emergency Department 1 week of diarrhea. Vital signs upon arrival are within acceptable limits. Patient's well-appearing at the bedside. He has a soft abdomen. Laboratory evaluation is unremarkable. Imagin g studies are negative. Patient's agree with discharge. Given starter pack for antidiarrhea medication along with CPAP. Undiagnosed new problem with uncertain prognosis? @ -[No] Drug Therapy requiring intensive monitoring for toxicity (Heparin, Nitro, Insulin, Cardizem)? @ -[No] Were any procedures done? @ -[No] Diagnosis/symptom? Acute, or Chronic, or Acute on Chronic? Uncomplicated (without systemic symptoms) or Complicated (systemic symptoms)? @ -Diarrhea, no obvious source, no high-risk features Side effects of treatment? @ -[No] Exacerbation, Progression, or Severe Exacerbation? @ -[No] Poses a threat to life or bodily function? How? (Chest pain, [place], [place], pneumonia, PE, COPD, DKA, ARF, appy, cholecystitis, CVA, Diverticulitis, Homicidal, Suicidal, threat to staff... and all critical care pts) @ -[No] (Koko Thacker) - Lab Data Lab Results 08/18/23 08/18/23 08/18/23 Range/Units 18:15 18:15 18:15 WBC 7.6 (3.8-10.6) k/uL RBC 4.04 L (4.30-5.90) m/uL Hgb 12.6 L (13.0-17.5) gm/dL Hct 36.5 L (39.0-53.0) % MCV 90.3 (80.0-100.0) fL MCH 31.1 (25.0-35.0) pg MCHC 34.5 (31.0-37.0) g/dL RDW 13.9 (11.5-15.5) % Plt Count 314 (150-450) k/uL MPV 9.1 Neutrophils % 49 % Lymphocytes % 22 % Monocytes % 8 % Eosinophils % 17 % Basophils % 1 % Neutrophils # 3.7 (1.3-7.7) k/uL Lymphocytes # 1.7 (1.0-4.8) k/uL Monocytes # 0.6 (0-1.0) k/uL Eosinophils # 1.3 H (0-0.7) k/uL Basophils # 0.0 (0-0.2) k/uL Sodium 137 (137-145) mmol/L Potassium 4.1 (3.5-5.1) mmol/L Chloride 102 (98-107) mmol/L Carbon Dioxide 26 (22-30) mmol/L Anion Gap 9 mmol/L BUN 32 H (9-20) mg/dL Creatinine 1.73 H (0.66-1.25) mg/dL Est GFR (CKD-EPI)AfAm 42 (>60 ml/min/1.73 sqM) Est GFR (CKD-EPI)NonAf 36 (>60 ml/min/1.73 sqM) Glucose 88 (74-99) mg/dL Plasma Lactic Acid Nathan 0.9 (0.7-2.0) mmol/L Calcium 10.6 H (8.4-10.2) mg/dL Total Bilirubin 0.5 (0.2-1.3) mg/dL AST 22 (17-59) U/L ALT 16 (4-49) U/L Alkaline Phosphatase 73 (38-126) U/L Total Protein 6.5 (6.3-8.2) g/dL Albumin 3.6 (3.5-5.0) g/dL Amylase 52 (30-110) U/L Lipase 85 (23-300) U/L Disposition <Maritza Alvarado - Last Filed: 08/18/23 17:38> Is patient prescribed a controlled substance at d/c from ED?: No Time of Disposition: 23:14 <Koko Thacker - Last Filed: 08/18/23 23:16> Clinical Impression: Diarrhea Disposition: HOME SELF-CARE Condition: Good Instructions (If sedation given, give patient instructions): Acute Diarrhea (ED) Prescriptions: Diphenox-Atrop 2.5-0.025 mg [Lomotil] 1 - 2 tab PO QID PRN 3 Days #24 tab PRN Reason: Diarrhea Azithromycin [Zithromax Z Pack] 1 tab PO DIRECTED #6 tab Referrals: [facility],Clinic [Primary Care Provider] - 1-2 days
[2023-08-18 18:53] LABS: Basophils % (A) 1 %; Eosinophils # (A) 1.3 k/uL (0-0.7); Eosinophils % (A) 17 %; HCT 36.5 % (39.0-53.0); HGB 12.6 gm/dL (13.0-17.5); Lymphocytes # (A) 1.7 k/uL (1.0-4.8); Lymphocytes % (A) 22 %; MCH 31.1 pg (25.0-35.0); MCHC 34.5 g/dL (31.0-37.0); MCV 90.3 fL (80.0-100.0); Mean Platelet Volume 9.1; Monocytes # (A) 0.6 k/uL (0-1.0); Monocytes % (A) 8 %; Neutrophils # (A) 3.7 k/uL (1.3-7.7); Neutrophils % (A) 49 %; Platelet Count 314 k/uL (150-450); RBC 4.04 m/uL (4.30-5.90); RDW 13.9 % (11.5-15.5); WBC 7.6 k/uL (3.8-10.6)
[2023-08-18 19:07] LABS: ALT 16 U/L (4-49); AST 22 U/L (17-59); African American GFR (CKD) 42 (>60 ml/min/1.73 sqM); Albumin 3.6 g/dL (3.5-5.0); Alkaline Phosphatase 73 U/L (38-126); Amylase 52 U/L (30-110); Anion Gap 9 mmol/L; Blood Urea Nitrogen 32 mg/dL (9-20); Calcium 10.6 mg/dL (8.4-10.2); Carbon Dioxide 26 mmol/L (22-30); Chloride 102 mmol/L (98-107); Glucose 88 mg/dL (74-99); Lipase 85 U/L (23-300); Non-African American GFR(CKD) 36 (>60 ml/min/1.73 sqM); Potassium 4.1 mmol/L (3.5-5.1); Sodium 137 mmol/L (137-145); Total Bilirubin 0.5 mg/dL (0.2-1.3); Total Protein 6.5 g/dL (6.3-8.2)
[2023-08-18] MEDS ORDERED: AZITHROMYCIN 500 MG in SODIUM CHLORIDE 0.9% 250 ML IVPB STA (21:36)
[2023-08-18 21:46] VITALS: TEMP 97.9
--- NOTE | 2023-08-18 22:30 | CT ---
EXAMINATION TYPE: CT abdomen pelvis wo con DATE OF EXAM: 08/18/2023 COMPARISON: None INDICATION: diarrhea x 10 days. DLP: 288.3 mGycm, Automated exposure control for dose reduction was used. CONTRAST: 0 mL of Isovue 300. Study performed without Oral Contrast TECHNIQUE: Axial images were obtained from above the diaphragm to the pubic rami in the axial plane a t 5 mm thick sections. Reconstructed images are reviewed on the computer in the coronal plane. FINDINGS: Limited CT sections are obtained the lung bases. The lung bases are clear. CT ABDOMEN: Liver: Normal Spleen: Normal Pancreas: Normal Adrenal glands: The adrenal glands are normal. Gallbladder: Normal Kidneys: No masses are evident. No hydronephrosis is present. Renal cysts are present on the right kidney. No renal stones are identified. Aorta: Vascular calcification is within the aorta. Inferior vena cava: Normal. CT PELVIS: Loops of bowel within the abdomen and pelvis are normal. There are loops of bowel which are incom pletely distended or lack oral contrast limiting their evaluation. Appendix: Normal as visualized. Urinary bladder: Urinary bladder is incompletely distended. There is diffuse thickening of the urinar y bladder wall Genitourinary structures: Prostate is very prominent. Osseous structures: No suspicious lytic or sclerotic lesions. IMPRESSION: 1. No suspicious bowel abnormality identified. No obstruction. 2. Diffuse urinary bladder wall thickening may be related to neurogenic bladder. Osseous very promine nt. 3. Right renal cysts
[2023-08-18] MEDS ORDERED: DIPHENOX-ATROP STARTER PACK 8 TAB BTL PO STA (23:13)
[2023-08-19 00:47] VITALS: BP 137/77; PULSE 73; RESP 18
== END 2023-08-19 00:40 | disposition home or self-care (01) ==
LOC: EC 15:41
DX: R19.7 Diarrhea, unspecified (principal); I25.10 Atherosclerotic heart disease of native coronary artery without angina pectoris; I10 Essential (primary) hypertension; E78.5 Hyperlipidemia, unspecified; K21.9 Gastro-esophageal reflux disease without esophagitis; I25.2 Old myocardial infarction; M19.90 Unspecified osteoarthritis, unspecified site; F32.A Depression, unspecified; Z87.891 Personal history of nicotine dependence; F12.90 Cannabis use, unspecified, uncomplicated; Z88.8 Allergy status to other drugs, medicaments and biological substances; Z88.1 Allergy status to other antibiotic agents; Z79.899 Other long term (current) drug therapy
CPT/HCPCS: 36415; 80053; 82150; 83605; 83690; 85025; 74176; 99284; 96365; J0456

== ENCOUNTER 2023-10-17 12:01 | Observation (INO) | payer MEDICARE, OTHER ==
[2023-10-17 12:20] LABS: Glucose,Whole Blood 97 mg/dL (70-110)
[2023-10-17] MEDS ORDERED: SODIUM CHLORIDE 0.9% 1,000 ML IV STA (12:21)
--- NOTE | 2023-10-17 12:23 | ED ---
General Adult HPI - General Chief complaint: Neuro Symptoms/Deficit Stated complaint: Weakness Time Seen by Provider: 10/17/23 12:11 Source: patient, RN notes reviewed Mode of arrival: EMS Limitations: no limitations - History of Present Illness Initial comments: Patient is a pleasant 19-year-old male presenting to the emergency department with weakness. Onset of symptoms was around 11 AM. Symptoms lasted around 10 minutes and then resolved. Patient is currently symptom-free at this time. No speech problems. No confusion. No visual changes. Patient felt his right leg was weak. Patient also noticed right arm weakness. This has resolved. No history of similar symptoms from sleep. 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 - Related Data Home Medications Medication Instructions Recorded Confirmed Tamsulosin HCl [Flomax] 0.4 mg PO HS 10/12/17 05/25/23 Metoprolol Tartrate [Lopressor] 25 mg PO DAILY 07/10/22 05/25/23 Pravastatin Sodium [Pravachol] 40 mg PO HS 07/10/22 05/25/23 Aspirin EC [Ecotrin Low Dose] 81 mg PO DAILY 05/25/23 05/25/23 Diphenox-Atrop 2.5-0.025 mg 1 tab PO QID PRN 05/25/23 05/25/23 [Lomotil] amLODIPine [Norvasc] 5 mg PO DAILY 05/25/23 05/25/23 Previous Rx's Medication Instructions Recorded valACYclovir HCL [Valtrex] 500 mg PO BID 7 Days #14 tab 06/20/23 Azithromycin [Zithromax Z Pack] 1 tab PO DIRECTED #6 tab 08/18/23 Diphenox-Atrop 2.5-0.025 mg 1 - 2 tab PO QID PRN 3 Days #24 tab 08/18/23 [Lomotil] Allergies Allergy/AdvReac Type Severity Reaction Status Date / Time atorvastatin calcium Allergy JOINT PAIN Verified 10/17/23 12:10 [From Lipitor] clindamycin AdvReac JOINT PAIN Verified 10/17/23 12:10 Review of Systems ROS Statement: Those systems with pertinent positive or pertinent negative responses have been documented in the HPI. ROS Other: All systems not noted in ROS Statement are negative. Constitutional: Denies: fever Eyes: Denies: eye pain ENT: Denies: ear pain Respiratory: Denies: cough Cardiovascular: Denies: chest pain Gastrointestinal: Reports: diarrhea Neurological: Reports: as per HPI, weakness. 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 Last Myocardial Infarction Date:: 02/29/20 History of Any Multi-Drug Resistant Organisms: None Reported Past Surgical History: Heart Catheterization, Orthopedic Surgery Additional Past Surgical History / Comment(s): Left nephrectomy 2016, RT HAND 2ND DIGIT LOST TOP OF FINGER IN CRUSHING INJURY, EGDs, colonoscopy, bilateral cataract removals/lens implants. Past Anesthesia/Blood Transfusion Reactions: No Reported Reaction Past Psychological History: Depression Smoking Status: Former smoker Past Alcohol Use History: Rare Past Drug Use History: Marijuana - Past Family History Father Family Medical History: Cancer, Hypertension, Myocardial Infarction ([place]) Additional Family Medical History / Comment(s): SKIN CANCER Mother Family Medical History: Cancer Additional Family Medical History / Comment(s): breast cancer - throat cancer Sister(s) Family Medical History: Cancer Additional Family Medical History / Comment(s): skin/breast and throat cancer General Exam Limitations: no limitations General appearance: alert, in no apparent distress Head exam: Present: atraumatic, normocephalic Eye exam: Present: normal appearance, PERRL, EOMI ENT exam: Present: normal oropharynx Neck exam: Present: normal inspection Respiratory exam: Present: normal lung sounds bilaterally Cardiovascular Exam: Present: regular rate, normal rhythm GI/Abdominal exam: Present: soft. Absent: tenderness Extremities exam: Present: normal inspection, full ROM Neurological exam: Present: alert, oriented X3, CN II-XII intact. Absent: motor sensory deficit Expanded Cranial nerves: EOM's Intact: Normal, Facial Sensation: Normal Sensory exam: Upper Extremity Light Touch: Normal, Lower Extremity Light Touch: Normal Motor strength exam: RUE: 5, LUE: 5, RLE: 5, LLE: 5 Eye Response: (4) open spontaneously Motor Response: (6) obeys commands Verbal Response: (5) oriented Psychiatric exam: Present: normal affect, normal mood Skin exam: Present: normal color Course Vital Signs 10/17/23 10/17/23 10/17/23 12:04 12:10 12:21 Temperature 97.4 F L Pulse Rate 79 72 69 Respiratory 18 18 18 Rate Blood Pressure 150/101 148/84 150/88 O2 Sat by Pulse 97 98 97 Oximetry 10/17/23 12:36 Temperature Pulse Rate 70 Respiratory 18 Rate Blood Pressure O2 Sat by Pulse 98 Oximetry EKG Findings - EKG Results: EKG: interpreted by JACKY, sinus rhythm, normal axis, normal QRS, normal ST/T Medical Decision Making - Medical Decision Making Was pt. sent in by a medical professional or institution (, PA, SEED DISTRICT SALES MANAGER, urgent care, hospital, or penitentiary...) When possible be specific @ -No Did you speak to anyone other than the patient for history (EMS, parent, family, police, friend...)? What history was obtained from this source @ -No Did you review nursing and triage notes (agree or disagree)? Why? @ -I reviewed and agree with nursing and triage notes Were old charts reviewed (outside hosp., previous admission, EMS record, old EKG, old radiological studies, urgent care reports/EKG's, penitentiary records)? Report findings @ -Previous chest x-ray reviewed Differential Diagnosis (chest pain, altered mental status, abdominal pain women, abdominal pain men, vaginal bleeding, weakness, fever, dyspnea, syncope, headache, dizziness, GI bleed, back pain, seizure, CVA, palpatations, mental health, musculoskeletal)? @ -Differential Weakness: Hypoglycemia, shock, sepsis, hyponatremia, anemia, infection, [place], ETOH, adverse medicine reaction, overdose, stroke, this is not meant to be an all-inclusive list. EKG interpreted by me (3pts min.). @ -As above X-rays interpreted by me (1pt min.). @ -Chest x-ray shows no acute process CT interpreted by me (1pt min.). @ -CT brain without acute abnormality U/S interpreted by me (1pt. min.). @ -None done What testing was considered but not performed or refused? (CT, X-rays, U/S, labs)? Why? @ -Considered CT angios however patient only has one kidney and states for renal function with that single kidney. What meds were considered but not given or refused? Why? @ -None Did you discuss the management of the patient with other professionals (professionals i.e. Dr., PA, SEED DISTRICT SALES MANAGER, lab, RT, psych nurse, high school social studies tutor, veneer drier tailer, teacher, forestry technical officer, piano case maker)? Give summary @ -Case discussed with [facility] physician Dr. Salgado who will admit covering this [place] patient Was smoking cessation discussed for >3mins.? @ -No Was critical care preformed (if so, how long)? @ -No Were there social determinants of health that impacted care today? How? (Homelessness, low income, unemployed, alcoholism, drug addiction, transportation, low edu. Level, literacy, decrease access to med. care, snf, rehab)? @ -No Was there de-escalation of care discussed even if they declined (Discuss DNR or withdrawal of care, Hospice)? DNR status @ -No What co-morbidities impacted this encounter? (DM, HTN, Smoking, COPD, CAD, Cancer, CVA, ARF, Chemo, Hep., AIDS, mental health diagnosis, sleep apnea, morbid obesity)? @ -None Was patient admitted / discharged? Hospital course, mention meds given and route, prescriptions, significant lab abnormalities, going to OR and other pertinent info. @ -Patient reevaluated and updated. Patient will be admitted for TIA. Neurology will be placed on consult. Admission orders written. Undiagnosed new problem with uncertain prognosis? @ -No Drug Therapy requiring intensive monitoring for toxicity (Heparin, Nitro, Insulin, Cardizem)? @ -No Were any procedures done? @ -No Diagnosis/symptom? @ -TIA Acute, or Chronic, or Acute on Chronic? @ -Acute Uncomplicated (without systemic symptoms) or Complicated (systemic symptoms)? @ -default Side effects of treatment? @ -No Exacerbation, Progression, or Severe Exacerbation? @ -No Poses a threat to life or bodily function? How? (Chest pain, [place], [place], pneumonia, PE, COPD, DKA, ARF, appy, cholecystitis, CVA, Diverticulitis, Homicidal, Suicidal, threat to staff... and all critical care pts) @ -No - Lab Data Result diagrams: 10/17/23 12:23 10/17/23 12:23 Lab Results 10/17/23 10/17/23 10/17/23 Range/Units 12:19 12:23 12:23 WBC 8.8 (3.8-10.6) k/uL RBC 4.19 L (4.30-5.90) m/uL Hgb 12.9 L (13.0-17.5) gm/dL Hct 38.5 L (39.0-53.0) % MCV 91.9 (80.0-100.0) fL MCH 30.9 (25.0-35.0) pg MCHC 33.6 (31.0-37.0) g/dL RDW 13.6 (11.5-15.5) % Plt Count 381 (150-450) k/uL MPV 8.8 PT 10.0 (10.0-12.5) sec INR 0.9 (<1.2) APTT 25.0 (22.0-30.0) sec Sodium (137-145) mmol/L Potassium (3.5-5.1) mmol/L Chloride (98-107) mmol/L Carbon Dioxide (22-30) mmol/L Anion Gap mmol/L BUN (9-20) mg/dL Creatinine (0.66-1.25) mg/dL Est GFR (CKD-EPI)AfAm (>60 ml/min/1.73 sqM) Est GFR (CKD-EPI)NonAf (>60 ml/min/1.73 sqM) Glucose (74-99) mg/dL POC Glucose (mg/dL) 97 (70-110) mg/dL POC Glu Tester Operator Helper ID Jaffe, Dash Calcium (8.4-10.2) mg/dL Total Bilirubin (0.2-1.3) mg/dL AST (17-59) U/L ALT (4-49) U/L Alkaline Phosphatase (38-126) U/L Creatine Kinase (55-170) U/L Total Protein (6.3-8.2) g/dL Albumin (3.5-5.0) g/dL 01/30/24 Range/Units 12:23 WBC (3.8-10.6) k/uL RBC (4.30-5.90) m/uL Hgb (13.0-17.5) gm/dL Hct (39.0-53.0) % MCV (80.0-100.0) fL MCH (25.0-35.0) pg MCHC (31.0-37.0) g/dL RDW (11.5-15.5) % Plt Count (150-450) k/uL MPV PT (10.0-12.5) sec INR (<1.2) APTT (22.0-30.0) sec Sodium 137 (137-145) mmol/L Potassium 3.8 (3.5-5.1) mmol/L Chloride 107 (98-107) mmol/L Carbon Dioxide 24 (22-30) mmol/L Anion Gap 6 mmol/L BUN 31 H (9-20) mg/dL Creatinine 1.33 H (0.66-1.25) mg/dL Est GFR (CKD-EPI)AfAm 58 (>60 ml/min/1.73 sqM) Est GFR (CKD-EPI)NonAf 50 (>60 ml/min/1.73 sqM) Glucose 98 (74-99) mg/dL POC Glucose (mg/dL) (70-110) mg/dL POC Glu Tester Operator Helper ID Calcium 9.9 (8.4-10.2) mg/dL Total Bilirubin 0.5 (0.2-1.3) mg/dL AST 27 (17-59) U/L ALT 16 (4-49) U/L Alkaline Phosphatase 73 (38-126) U/L Creatine Kinase 56 (55-170) U/L Total Protein 6.9 (6.3-8.2) g/dL Albumin 3.8 (3.5-5.0) g/dL Disposition Clinical Impression: Transient cerebral ischemia Disposition: ADMITTED IP TO THIS HOSP Is patient prescribed a controlled substance at d/c from ED?: No Referrals: [facility],Clinic [Primary Care Provider] - 1-2 days Time of Disposition: 13:06
[2023-10-17 12:29] LABS: HCT 38.5 % (39.0-53.0); HGB 12.9 gm/dL (13.0-17.5); MCH 30.9 pg (25.0-35.0); MCHC 33.6 g/dL (31.0-37.0); MCV 91.9 fL (80.0-100.0); Mean Platelet Volume 8.8; Platelet Count 381 k/uL (150-450); RBC 4.19 m/uL (4.30-5.90); RDW 13.6 % (11.5-15.5); WBC 8.8 k/uL (3.8-10.6)
[2023-10-17 12:40] LABS: INR 0.9 (<1.2)
--- NOTE | 2023-10-17 12:40 | CT ---
EXAMINATION TYPE: CT brain wo con DATE OF EXAM: 10/17/2023 COMPARISON: 03/26/2020 INDICATION: Neuro deficit DLP: 1167.4 mGycm, Automated exposure control for dose reduction was used. CONTRAST: None CT of the brain is performed utilizing 3 mm thick sections through the posterior fossa and 3 mm thick sections through the remaining calvarium. Study is performed within 24 hours of arrival to the hosp [facility]. No abnormal hyperdensity is present to suggest an acute intracranial hemorrhage. No mass lesion is evident. No acute infarcts are evident. Ventricles and sulci are appropriate for the patient age. Paranasal sinuses and mastoid air cells within the [id number] are clear. Note is made to left sept al deviation. IMPRESSION: 1. No acute intracranial process. Follow-up MRI can be performed as clinically indicated.
--- NOTE | 2023-10-17 12:44 | XR ---
EXAMINATION TYPE: XR chest 2V DATE OF EXAM: 10/17/2023 COMPARISON: 05/25/2023 HISTORY: 83-year-old male confusion, altered mental status, right-sided weakness TECHNIQUE: AP and lateral views FINDINGS: Heart normal size. Aorta and pulmonary vasculature within normal limits. No consolidation or pleural effusion. IMPRESSION: No acute cardiopulmonary process.
[2023-10-17 12:54] LABS: ALT 16 U/L (4-49); AST 27 U/L (17-59); African American GFR (CKD) 58 (>60 ml/min/1.73 sqM); Albumin 3.8 g/dL (3.5-5.0); Alkaline Phosphatase 73 U/L (38-126); Anion Gap 6 mmol/L; Blood Urea Nitrogen 31 mg/dL (9-20); Calcium 9.9 mg/dL (8.4-10.2); Carbon Dioxide 24 mmol/L (22-30); Chloride 107 mmol/L (98-107); Creatine Kinase 56 U/L (55-170); Glucose 98 mg/dL (74-99); Non-African American GFR(CKD) 50 (>60 ml/min/1.73 sqM); Potassium 3.8 mmol/L (3.5-5.1); Sodium 137 mmol/L (137-145); Total Bilirubin 0.5 mg/dL (0.2-1.3); Total Protein 6.9 g/dL (6.3-8.2)
[2023-10-17] MEDS ORDERED: ASPIRIN 325 MG TAB PO STA (13:07)
[2023-10-17 13:11] LABS: Lymphocytes # (M) 1.85 k/uL (1.0-4.8); Monocytes # (M) 0.53 k/uL (0-1.0); Neutrophils # (M) 5.02 k/uL (1.3-7.7); Neutrophils % (M) 57 %; Nucleated Red Blood Cells 0 /100 WBC (0-0); Total Cells Counted 200
[2023-10-17] MEDS ORDERED: SODIUM CHLORIDE 0.9% 1,000 ML IV SCH (13:15)
--- NOTE | 2023-10-17 14:31 | P.HPIM ---
History of Present Illness H&P Date: 10/17/23 83 year old M with PMH of HTN, history of renal CA with metastatic disease status post nephrectomy, dyslipidemia, BPH presents to the ED. 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 He was at work today when he noted significant weakness in his right leg. When he lifted his leg he stumbled to the right side. He also noted right arm weakness as well. He denies any slurred speech, numbness/tingling, confusion, facial droop. The symptoms prompted him to come to the ED. While en route to the ED, his symptoms had completely resolved. 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 In the ED, he underwent extensive evaluation. Vital signs stable. CBC Hg 12.9 Hct 38.5. Coag panel within luli limits. CMP BUN 31, Cr 1.33. CPK 56. CT brain no acute abnormality. EKG normal sinus rhythm. CXR no acute process. Patient is admitted for workup of CVA/TIA. General: Non toxic, no distress, appears at stated age Derm: Warm, dry Head: Atraumatic, normocephalic, symmetric Eyes: EOMI, no lid lag, anicteric sclera Mouth: No lip lesion, mucus membranes moist Cardiovascular: S1S2 reg, no murmur, positive posterior tibial pulse bilateral, Lungs: CTA bilateral, no rhonchi, no rales, no accessory muscle use Abdominal: Soft, nontender to palpation, no guarding, no appreciable organomegaly Ext: No gross muscle atrophy, no edema, no contractures Neuro: CN II-XI grossly intact, no focal neuro deficits Psych: Alert, oriented, appropriate affect Based on my assessment of this patient, this patient meets a high complexity l evel of care. Patient has an acute diagnosis of TIA that poses a threat to life or bodily function. TIA: CVA workup. ASA 81 mg PO QD. Lipitor 40 mg PO QD. Plavix 75 mg PO QD. MRI brain. Carotid US. A1c. Lipid panel. Telemetry monitoring. Neurochecks. PT/OT/ST. Neurology consult. Normocytic anemia HTN: Allow permissive HTN. Hold antihypertensive medications. History of renal CA with metastatic disease status post nephrectomy following Dr. Mcneal CKD: At baseline. Dyslipidemia: Lipitor as above. BPH: Flomax 0.4 mg PO QD. CODE STATUS: FULL CODE DVT Prophylaxis: Lovenox GI Prophylaxis: Designated medical POA if patient is not able to make medical decisions for themselves: Son I have reviewed the following production support consultant notes: I have reviewed the results of the following tests: As above. I have ordered the following tests: As above. I have discussed the care of this patient with the following independent historian: I have independently interpreted the following test below: EKG, CXR. I have discussed the management of this patient with the following physician: ED provider. Past Medical History Past Medical History: Coronary Artery Disease (CAD), Cancer, Chest Pain / Angina, GERD/Reflux, Hyperlipidemia, Hypertension, Myocardial Infarction (SD), Osteoarthritis (OA), Prostate Disorder, Renal Disease Additional Past Medical History / Comment(s): Recent upper respiratory tract infection, L renal cancer with nephrectomy/mets L lung and sternum/no longer taking oral chemo d/t it was affecting his kidney/states he receives nfusion once a month but does not know what type of infusion, chronic renal failure stage IV, BPH, newsome's esophagus, gastritis, dry mouth, chronic low back pain, arthritis R great toe. Last Myocardial Infarction Date:: 02/29/20 History of Any Multi-Drug Resistant Organisms: None Reported Past Surgical History: Heart Catheterization, Orthopedic Surgery Additional Past Surgical History / Comment(s): Left nephrectomy 2016, RT HAND 2ND DIGIT LOST TOP OF FINGER IN CRUSHING INJURY, EGDs, colonoscopy, bilateral cataract removals/lens implants. Past Anesthesia/Blood Transfusion Reactions: No Reported Reaction Past Psychological History: Depression Smoking Status: Former smoker Past Alcohol Use History: Rare Past Drug Use History: Marijuana - Past Family History Father Family Medical History: Cancer, Hypertension, Myocardial Infarction (SD) Additional Family Medical History / Comment(s): SKIN CANCER Mother Family Medical History: Cancer Additional Family Medical History / Comment(s): breast cancer - throat cancer Sister(s) Family Medical History: Cancer Additional Family Medical History / Comment(s): skin/breast and throat cancer Medications and Allergies Home Medications Medication Instructions Recorded Confirmed Type Tamsulosin HCl [Flomax] 0.4 mg PO HS 10/12/17 05/25/23 History Metoprolol Tartrate [Lopressor] 25 mg PO DAILY 07/10/22 05/25/23 History Pravastatin Sodium [Pravachol] 40 mg PO HS 07/10/22 05/25/23 History Aspirin EC [Ecotrin Low Dose] 81 mg PO DAILY 05/25/23 05/25/23 History Diphenox-Atrop 2.5-0.025 mg 1 tab PO QID PRN 05/25/23 05/25/23 History [Lomotil] amLODIPine [Norvasc] 5 mg PO DAILY 05/25/23 05/25/23 History valACYclovir HCL [Valtrex] 500 mg PO BID 7 Days #14 tab 06/20/23 Rx Azithromycin [Zithromax Z Pack] 1 tab PO DIRECTED #6 tab 08/18/23 Rx Diphenox-Atrop 2.5-0.025 mg 1 - 2 tab PO QID PRN 3 Days #24 tab 08/18/23 Rx [Lomotil] Allergies Allergy/AdvReac Type Severity Reaction Status Date / Time atorvastatin calcium AdvReac JOINT PAIN Verified 10/17/23 13:11 [From Lipitor] clindamycin AdvReac JOINT PAIN Verified 10/17/23 13:11 Physical Exam Vitals: Vital Signs Temp Pulse Resp BP Pulse Ox 10/17/23 13:36 61 18 114/67 98 10/17/23 13:21 60 18 124/78 99 10/17/23 13:06 68 18 119/83 98 10/17/23 12:51 67 18 130/79 99 10/17/23 12:36 70 18 98 10/17/23 12:21 69 18 150/88 97 10/17/23 12:10 72 18 148/84 98 10/17/23 12:04 97.4 F L 79 18 150/101 97 Intake and Output 10/16/23 10/17/23 10/17/23 22:59 06:59 14:59 Other: Weight 51.71 kg Results CBC & Chem 7: 10/17/23 12:23 10/17/23 12:23 Labs: Abnormal Lab Results - Last 24 Hours (Table) 10/17/23 10/17/23 Range/Units 12:23 12:23 RBC 4.19 L (4.30-5.90) m/uL Hgb 12.9 L (13.0-17.5) gm/dL Hct 38.5 L (39.0-53.0) % Eosinophils # (Manual) 1.50 H (0-0.7) k/uL BUN 31 H (9-20) mg/dL Creatinine 1.33 H (0.66-1.25) mg/dL
--- NOTE | 2023-10-17 17:12 | US ---
EXAMINATION TYPE: US carotid duplex BILAT DATE OF EXAM: 10/17/2023 COMPARISON: None CLINICAL INDICATION: Male, 83 years old with history of Stenosis; Stenosis. Prior smoker, hypertensio n, hyperlipidemia. TECHNIQUE: Carotid duplex ultrasound examination. Indirect Doppler criteria was utilized. FINDINGS: EXAM MEASUREMENTS: RIGHT: Peak Systolic Velocity (PSV) cm/sec ----- Right CCA: 63.3 ----- Right ICA: 96.9 ----- Right ECA: 47.6 ICA/CCA ratio: 1.5 RIGHT: End Diastole cm/sec ----- Right CCA: 13.6 ----- Right ICA: 27.0 ----- Right ECA: 0.0 LEFT: Peak Systolic Velocity (PSV) cm/sec ----- Left CCA: 69.1 ----- Left ICA: 109.5 ----- Left ECA: 61.9 ICA/CCA ratio: 1.6 LEFT: End Diastole cm/sec ----- Left CCA: 15.3 ----- Left ICA: 24.1 ----- Left ECA: 0.0 VERTEBRALS (direction of flow): Right Vertebral: Antegrade Left Vertebral: Antegrade Rhythm: Normal PILOT CAPTAIN NOTES: Intimal thickening seen bilateral carotid arteries. Plaque seen within bilateral bulbs and proximal bilateral ICAs. No elevated velocities at this time. IMPRESSION: Mild atherosclerotic change at both bifurcations. No hemodynamically significant internal carotid art enmanuel stenosis on either side. Criteria for Assigning % of Stenosis / Diameter reduction (Estimation based on the indirect measurements of the internal carotid artery velocities (ICA PSV). 1. Normal (no stenosis)=ICA PSV < 125 cm/s: ratio < 2.0: ICA EDV<40 cm/s. 2. Less than 50% stenosis=ICA PSV < 125 cm/s: ratio < 2.0: ICA EDV<40 cm/s. 3. 50 to 69% stenosis=ICA PSV of 125 to 230 cm/s: ration 2.0 ? 4.0: ICA EDV 40-100 cm/s. 4. Greater than 70% stenosis to near occlusion= ICA PSV > 230 cm/s: ratio > 4.0: ICA EDV > 100 cm/s. 5. Near occlusion= ICA PSV velocities may be low or undetectable: variable ratio and ICA EDV. 6. Total occlusion=unable to detect flow.
[2023-10-17] MEDS ORDERED: TAMSULOSIN 0.4 MG CAP.ER.24H PO SCH (21:00)
--- NOTE | 2023-10-17 21:37 | MR ---
EXAMINATION TYPE: MR brain wo con DATE OF EXAM: 10/17/2023 8:59 PM CLINICAL INDICATION:Male, 83 years old with history of leg weakness. stroke. r/o brain mets.; PHH, Leg weakness, stroke, r/o brain mets, Hx Left kidney cancer and was removed COMPARISON: 10/17/2023. TECHNIQUE: Multi planar, multi sequence imaging was performed through the brain including: T1, T2, In version recovery, Diffusion weighted imaging, and gradient echo imaging. No gadolinium was given. FINDINGS: Mild cerebral atrophy with proportional dilation of ventricular system. Scattered foci of high T2 s ignal intensity are seen within the periventricular white matter. Midline structures show no abnormal ity. Diffusion-weighted imaging shows no evidence of restricted diffusion. The susceptibility weighte d images do not reveal any evidence for micro-hemorrhage. The bone marrow signal is within normal limits. Paranasal sinuses and mastoid air cells: No significant paranasal sinus disease. Visualized orbits: Orbital contents are intact. IMPRESSION: Exam limited due to patient refusal of contrast. 1. No evidence of intracranial mass or acute/subacute infarct. 2. Nonspecific white matter changes, likely secondary to small vessel ischemic disease.
[2023-10-18] MEDS ORDERED: ENOXAPARIN 40 MG/0.4 ML SYRINGE SQ SCH (09:00)
[2023-10-18] MEDS ORDERED: ASPIRIN 325 MG TAB PO SCH (09:00)
[2023-10-18] MEDS ORDERED: ATORVASTATIN 40 MG TAB PO SCH (09:00)
[2023-10-18] MEDS ORDERED: CLOPIDOGREL 75 MG TAB PO SCH (09:00)
--- NOTE | 2023-10-18 12:06 | CA ---
Transthoracic Echo Report Name: Kurtis Mckeon Age: 83 Gender: M : 1940 Exam Date: 10/18/2023 10:38 Exam Location: [facility] Ht (in): 66 Wt (lb): 114 Ordering Physician: Denis Martínez DO Attending/Referring Phys: Metallurgical Engineer Myriam Cho RDCS Procedure CPT: Indications: Thrombus Cardiac Hx: Technical Quality: Fair Contrast 1: Total Dose (mL): Contrast 2: Total Dose (mL): MEASUREMENTS (Male / Female) Normal Values 2D ECHO LV Diastolic Diameter PLAX 3.2 cm 4.2 - 5.9 / 3.9 - 5.3 cm LV Systolic Diameter PLAX 2.4 cm IVS Diastolic Thickness 1.0 cm 0.6 - 1.0 / 0.6 - 0.9 cm LVPW Diastolic Thickness 1.4 cm 0.6 - 1.0 / 0.6 - 0.9 cm LV Relative Wall Thickness 0.7 RV Internal Dim ED PLAX 3.7 cm LA Volume 46.3 cm??? 18 - 58 / 22 - 52 cm??? LA Volume Index 30.0 cm???/m??? 16 - 28 cm???/m??? M-MODE Aortic Root Diameter MM 3.2 cm LA Systolic Diameter MM 3.0 cm LA Ao Ratio MM 0.9 AV Cusp Separation MM 1.6 cm DOPPLER AV Peak Velocity 160.5 cm/s AV Peak Gradient 10.3 mmHg AV Mean Velocity 98.1 cm/s AV Mean Gradient 4.6 mmHg AV Velocity Time Integral 34.7 cm AI Peak Velocity 422.0 cm/s AI Peak Gradient 71.2 mmHg AI Pressure Half Time 575.3 ms LVOT Peak Velocity 112.4 cm/s LVOT Peak Gradient 5.1 mmHg LVOT Velocity Time Integral 23.6 cm MV Area PHT 3.5 cm??? Mitral E Point Velocity 48.6 cm/s Mitral A Point Velocity 102.0 cm/s Mitral E to A Ratio 0.5 MV Deceleration Time 217.4 ms MV E' Velocity 6.6 cm/s Mitral E to MV E' Ratio 7.4 TR Peak Velocity 202.4 cm/s TR Peak Gradient 16.4 mmHg Right Atrial Pressure 15.0 mmHg Pulmonary Artery Systolic Pressu 31.4 mmHg Right Ventricular Systolic Press 31.4 mmHg FINDINGS Left Ventricle Mildly increased left ventricular wall thickness. Left ventricular cavity size normal. Normal left ventricular systolic function with no obvious regional wall motion abnormalities. Left ventricular ejection fraction is estimated at 55-60 %. Right Ventricle Mild right ventricular dilatation. Right ventricular systolic pressure within normal limits. Right Atrium Normal right atrial size. Left Atrium Mildly increased left atrial volume. Mitral Valve Structurally normal mitral valve. Mitral valve thickened. Mild mitral annular calcification. Aortic Valve Trileaflet aortic valve. No aortic stenosis. Mild aortic regurgitation. Aortic valve sclerosis. Tricuspid Valve Structurally normal tricuspid valve. Mild tricuspid regurgitation. Pulmonic Valve Structurally normal pulmonic valve. Trace pulmonic regurgitation. Pericardium No pericardial effusion. Aorta Normal size aortic root and proximal ascending aorta. CONCLUSIONS Left ventricular ejection fraction is estimated at 55-60 %. Normal left ventricular systolic function with no obvious regional wall motion abnormalities. Mild right ventricular dilatation. Right ventricular systolic pressure within normal limits. Mild aortic regurgitation. Aortic valve sclerosis. Mild mitral annular calcification. Previewed by: Dr Juan Finley (Electronically Signed) Final Date: 18 October 2023 12:05
--- NOTE | 2023-10-18 12:55 | P.DS ---
Providers Date of admission: 10/17/23 13:08 Expected date of discharge: 10/18/23 Attending physician: Edgar Cast MD Consults: 10/17/23 13:07 Consult Physician Urgent Consulting Provider: Jerman Nelson Consult Reason/Comments: tia Do you want consulting provider notified?: Yes Primary care physician: [facility] Course: 83 year old M with PMH of HTN, history of renal CA with metastatic disease status post nephrectomy, dyslipidemia, BPH presents to the ED. 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 He was at work today when he noted significant weakness in his right leg. When he lifted his leg he stumbled to the right side. He also noted right arm weakness as well. He denies any slurred speech, numbness/tingling, confusion, facial droop. The symptoms prompted him to come to the ED. While en route to the ED, his symptoms had completely resolved. 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 In the ED, he underwent extensive evaluation. Vital signs stable. CBC Hg 12.9 Hct 38.5. Coag panel within luli limits. CMP BUN 31, Cr 1.33. CPK 56. CT brain no acute abnormality. EKG normal sinus rhythm. CXR no acute process. Patient is admitted for workup of CVA/TIA. MRI brain negative for acute findings. Carotid US minimal atherosclerosis. Echo 55-60% with mild AR. Started on ASA 81 mg PO QD, Plavix 75 mg PO QD and Crestor 20 mg PO QD. Neurology consulted, recommended event monitor on discharge. A1c and Lipid panel pending at the time of this note. 10/18 Patient was seen and examined. He reports no complaints. Denies focal neurologic deficits. General: Non toxic, no distress, appears at stated age Derm: Warm, dry Head: Atraumatic, normocephalic, symmetric Eyes: EOMI, no lid lag, anicteric sclera Mouth: No lip lesion, mucus membranes moist Cardiovascular: S1S2 reg, no murmur Lungs: CTA bilateral, no rhonchi, no rales, no accessory muscle use Ext: No gross muscle atrophy, no edema, no contractures Neuro:no focal neuro deficits Psych: Alert, oriented, appropriate affect Discharge Diagnosis TIA Normocytic anemia HTN History of renal CA with metastatic disease status post nephrectomy CKD Dyslipidemia BPH This complex discharge took 35 minutes to complete. Patient Condition at Discharge: Stable Plan - Discharge Summary New Discharge Prescriptions: New Aspirin 81 mg PO DAILY #30 tab Rosuvastatin [Crestor] 20 mg PO DAILY #30 tablet Clopidogrel [Plavix] 75 mg PO DAILY #20 tab Continue Tamsulosin HCl [Flomax] 0.4 mg PO HS Cholestyramine (with Sugar) [Cholestyramine Powder] 4 gm PO BID amLODIPine [Norvasc] 5 mg PO BID Metoprolol Tartrate [Lopressor] 25 mg PO BID Discontinued Pravastatin Sodium [Pravachol] 40 mg PO HS Discharge Medication List Tamsulosin HCl [Flomax] 0.4 mg PO HS 10/12/17 [History] amLODIPine [Norvasc] 5 mg PO BID 05/25/23 [History] Cholestyramine (with Sugar) [Cholestyramine Powder] 4 gm PO BID 10/17/23 [History] Metoprolol Tartrate [Lopressor] 25 mg PO BID 10/17/23 [History] Aspirin 81 mg PO DAILY #30 tab 10/18/23 [Rx] Clopidogrel [Plavix] 75 mg PO DAILY #20 tab 10/18/23 [Rx] Rosuvastatin [Crestor] 20 mg PO DAILY #30 tablet 10/18/23 [Rx] Follow up Appointment(s)/Referral(s): Parmjit Dash DO [STAFF PHYSICIAN] - 1 Week Alec Lenz DO [STAFF PHYSICIAN] - 1 Week [facility] [Primary Care Provider] - 1-2 days Discharge Disposition: HOME SELF-CARE
[2023-10-18 14:21] VITALS: BP 155/75; PULSE 83; RESP 16; TEMP 98.7
[2023-10-18 14:33] LABS: LDL Cholesterol,Calculated 87.7 mg/dL (0.0-131.0); VLDL Calculation 13.64 mg/dL (5.00-40.00)
[2023-10-18 14:50] VITALS: BMI 18.3
--- NOTE | 2023-10-18 16:09 | P.CNNES ---
History of Present Illness Consult date: 10/18/23 Requesting physician: Denis Martínez Reason for Consult: tia History of Present Illness: This is an 83-year-old gentleman who presented emergency department because of right-sided weakness. Patient stated that around 11 AM yesterday he was at work and all of a sudden he noticed his right leg was weak and unsteady that he n otices right hand was weak. He stated that the episode lasted for 10 minutes. He denies any numbness, any visual disturbance, difficulty swallowing, difficulty getting his words out. He denies any history of stroke that he is aware of. 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 Patient states she is on aspirin 81 mg daily as well as statin but he missed his last 2 days of aspirin since he ran out. He feels he is back to baseline. Some of the work-up during this hospital visit consisted of: Lipid panel is triglyceride of 68, cholesterol 161, LDLs 87, HDL is 59 Hemoglobin A1c is 5.4 Initial serum glucose is 98. Sodium, AST ALT, CK level are within normal limits Creatinine is 1.33 and the BN is 31. Ct head is reported as no acute intracranial process. Follow-up MRI can be performed as clinically indicated. I personally reviewed CT head and agree with report. Carotid duplex was reported as mild atherosclerotic change at both bifurcation. No hemodynamically significant internal carotid artery stenosis on either side. MRI Brain is reported as no evidence of intracranial mass or acute/subacute infarct. Nonspecific white matter changes, likely secondary due to small vessel ischemic disease. 2D echo: Reported as left ventricle ejection fraction of 55-60%. No obvious regional wall motion abnormality. Review of Systems Review of system: The 12 point system was reviewed and apparent positive and negative per HPI. Past Medical History Past Medical History: Coronary Artery Disease (CAD), Cancer, Chest Pain / Angina, GERD/Reflux, Hyperlipidemia, Hypertension, Myocardial Infarction (MA), Osteoarthritis (OA), Prostate Disorder, Renal Disease Additional Past Medical History / Comment(s): Recent upper respiratory tract infection, L renal cancer with nephrectomy/mets L lung and sternum/no longer taking oral chemo d/t it was affecting his kidney/states he receives infusion once a month but does not know what type of infusion last dose was 10/09/23, chronic renal failure stage IV, BPH, newsome's esophagus, gastritis, dry mouth, chronic low back pain, arthritis R great toe. Last Myocardial Infarction Date:: 02/29/20 History of Any Multi-Drug Resistant Organisms: None Reported Past Surgical History: Heart Catheterization, Orthopedic Surgery Additional Past Surgical History / Comment(s): Left nephrectomy 2016, RT HAND 2ND DIGIT LOST TOP OF FINGER IN CRUSHING INJURY, EGDs, colonoscopy, bilateral cataract removals/lens implants. Past Anesthesia/Blood Transfusion Reactions: No Reported Reaction Past Psychological History: Depression Additional Psychological History / Comment(s): Pt resides alone with his cat. He is an [employer] . He is independent. 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 Smoking Status: Former smoker Past Alcohol Use History: Rare Additional Past Alcohol Use History / Comment(s): Pt started smoking in 1960 and quit in the . Past Drug Use History: Marijuana Additional Drug Use History / Comment(s): Pt uses edible marijuiana on occasion. - Past Family History Father Family Medical History: Cancer, Hypertension, Myocardial Infarction ([place]) Additional Family Medical History / Comment(s): SKIN CANCER Mother Family Medical History: Cancer Additional Family Medical History / Comment(s): breast cancer - throat cancer Sister(s) Family Medical History: Cancer Additional Family Medical History / Comment(s): skin/breast and throat cancer Medications and Allergies Home Medications Medication Instructions Recorded Confirmed Type Tamsulosin HCl [Flomax] 0.4 mg PO HS 10/12/17 10/17/23 History amLODIPine [Norvasc] 5 mg PO BID 05/25/23 10/17/23 History Cholestyramine (with Sugar) 4 gm PO BID 10/17/23 10/17/23 History [Cholestyramine Powder] Metoprolol Tartrate [Lopressor] 25 mg PO BID 10/17/23 10/17/23 History Aspirin 81 mg PO DAILY #30 tab 10/18/23 Rx Clopidogrel [Plavix] 75 mg PO DAILY #20 tab 10/18/23 Rx Rosuvastatin [Crestor] 20 mg PO DAILY #30 tablet 10/18/23 Rx Allergies Allergy/AdvReac Type Severity Reaction Status Date / Time atorvastatin calcium AdvReac JOINT PAIN Verified 10/17/23 13:11 [From Lipitor] clindamycin AdvReac JOINT PAIN Verified 10/17/23 13:11 Physical Examination - Vital Signs Vital Signs: Vital Signs Temp Pulse Pulse Resp BP BP Pulse Ox 10/18/23 14:08 98.7 F 83 16 155/75 97 10/18/23 07:00 98.1 F 81 20 137/61 100 10/18/23 02:00 98.5 F 75 16 120/69 95 10/17/23 22:08 98.3 F 89 16 162/76 97 10/17/23 18:25 97.9 F 71 17 132/68 99 10/17/23 16:05 98.2 F 64 16 112/68 98 Intake and Output 10/18/23 10/18/23 10/18/23 06:59 14:59 22:59 Intake Total 618 Balance 618 Intake: Oral 618 Other: Voiding Method Toilet # Voids 1 3 Weight 51.71 kg GENERAL: The patient is lying in bed and is not in acute distress. NEUROLOGICAL: Higher mental function: The patient is awake, alert, oriented to self, place and time. Patient is following commands. No aphasia and no neglect. Cranial nerves: The pupils are round, equal and reactive to light and accommodation. Visual sheikh are full to confrontation throughout. Extraocular movement is intact no nystagmus is noted. Facial sensation is normal to touch throughout. The facial strength is normal throughout. Hearing is mildly decreased bilaterally to hand rub. Tongue is midline and moved [id number] without any difficulty. No dysarthria is noted. Shoulder shrug is normal bi laterally. Motor: The strength is 5 over 5 throughout. Normal tone and bulk. Cerebellum: Normal finger to nose heel to vance bilaterally. Sensation: Sensation is normal to touch throughout. Reflexes (right/left): 2+ throughout. Plantars are downgoing bilaterally. Results - Laboratory Findings CBC and BMP: 10/17/23 12:23 10/17/23 12:23 Abnormal Lab Findings: Abnormal Labs 10/17/23 10/17/23 12:23 12:23 RBC 4.19 L Hgb 12.9 L Hct 38.5 L Eosinophils # (Manual) 1.50 H BUN 31 H Creatinine 1.33 H Assessment and Plan Assessment: This is an 83-year-old gentleman who presents to the emergency department that because of right-sided weakness. Symptoms started around 11 AM while at work and it lasted for 10 minutes. Patient is back to baseline. He states that he missed the 2 days off aspirin since she ran out. Transient ischemic attack and that had symptoms of right leg weakness as well as right hand weakness and symptoms lasted for 10 minutes. MRI the brain is negative for any acute subacute ischemia. Hypertension Prediabetes Chronic kidney disease History of renal cancer with metastases status post nephrectomy of the left renal. Plan: He is resumed on his home dose of aspirin 81 mg daily and Plavix 75 mg daily was started during his hospital visit by the primary team. I agree with starting the Plavix. Recommend dual antiplatelets for 21 days and after 21 days stop Pl avix but continue aspirin indefinitely. Patient did not feel his aspirin since she missed his a last 2 days of aspirin at. Patient was notified there is a higher risk of a bleed and if he is bruising easily or having any falling episode recommend just to be on aspirin. He is on Lipitor 40 mg daily Neurochecks Cardiac monitoring An event monitor was ordered by the primary team and recommended for 30 days PT OT and DRAIN CLEANER are consulted We'll defer the rest of the medical measure the primary team For DVT prophylaxis the patient is on Lovenox On discharge recommend the patient to follow-up with a neurologist as outpatient within 1-2 weeks The plan discussed with the patient's and the primary team. There is no additional neurological workup. Notify neurology team if any further concerns. Thank you for the consultation. Time with Patient: Greater than 30
[2023-10-19] MEDS ORDERED: ASPIRIN 81 MG PO SCH (09:00)
== END 2023-10-18 18:40 | disposition home or self-care (01) ==
LOC: EC 12:01 → 6NMEDSUR 13:08
PROVIDERS: ADMIT Family Medicine; ATTEND Family Medicine
DX: G45.9 Transient cerebral ischemic attack, unspecified (principal); I12.9 Hypertensive chronic kidney disease with stage 1 through stage 4 chronic kidney disease, or unspecified chronic kidney disease; N18.4 Chronic kidney disease, stage 4 (severe); E78.5 Hyperlipidemia, unspecified; N40.0 Benign prostatic hyperplasia without lower urinary tract symptoms; I35.1 Nonrheumatic aortic (valve) insufficiency; D64.9 Anemia, unspecified; I25.2 Old myocardial infarction; C78.02 Secondary malignant neoplasm of left lung; C79.51 Secondary malignant neoplasm of bone; Z79.899 Other long term (current) drug therapy; Z85.528 Personal history of other malignant neoplasm of kidney; Z87.891 Personal history of nicotine dependence; Z79.82 Long term (current) use of aspirin; Z88.8 Allergy status to other drugs, medicaments and biological substances; Z90.5 Acquired absence of kidney; Z98.61 Coronary angioplasty status; Z82.49 Family history of ischemic heart disease and other diseases of the circulatory system
CPT/HCPCS: 96360; 96361; 96372; 99285; 36415; 93005; 93306; 80061; 80053; 82550; 85025; 85610; 85730; 83036; 71046; 93880; 70450; 70551; G0378 ×2; J1650

== ENCOUNTER 2024-01-16 17:10 | Observation (INO) | payer OTHER ==
--- NOTE | 2024-01-16 17:34 | ED ---
Chest Pain HPI - General Source: patient Mode of arrival: ambulatory <Gustavo Nayak - Last Filed: 01/16/24 17:35> - General Source: patient, RN notes reviewed Limitations: no limitations <Denis Martínez - Last Filed: 01/16/24 18:57> - General Chief Complaint: Chest Pain Stated Complaint: Chest pain Time Seen by Provider: 01/16/24 17:25 - History of Present Illness Initial Comments: 84-year-old male presents to the ED with complaints of chest pain. Onset a day and a half ago. Reports pain is sharp in nature. Since onset, states pain has started to become more frequent. Pain does not radiate. No associated leaving or exacerbating factors. (Gustavo Nayak) Patient is an 83-year-old male present to the emergency department with concerns with chest discomfort. Onset of symptoms was 2 or 3 days ago. Discomfort was intermittent however now more steady. Discomfort is somewhat sharp. Discomfort remains mild. No associated dyspnea, nausea, or diaphoresis. No history of similar symptoms previously. (Denis Martínez) - Related Data Home Medications Medication Instructions Recorded Confirmed Tamsulosin HCl [Flomax] 0.4 mg PO HS 10/12/17 10/17/23 amLODIPine [Norvasc] 5 mg PO BID 05/25/23 10/17/23 Cholestyramine (with Sugar) 4 gm PO BID 10/17/23 10/17/23 [Cholestyramine Powder] Metoprolol Tartrate [Lopressor] 25 mg PO BID 10/17/23 10/17/23 Previous Rx's Medication Instructions Recorded Aspirin 81 mg PO DAILY #30 tab 10/18/23 Clopidogrel [Plavix] 75 mg PO DAILY #20 tab 10/18/23 Rosuvastatin [Crestor] 20 mg PO DAILY #30 tablet 10/18/23 Allergies Allergy/AdvReac Type Severity Reaction Status Date / Time atorvastatin calcium AdvReac JOINT PAIN Verified 01/16/24 17:32 [From Lipitor] clindamycin AdvReac JOINT PAIN Verified 01/16/24 17:32 Review of Systems ROS Other: All systems not noted in ROS Statement are negative. <Gustavo Nayak - Last Filed: 01/16/24 17:35> ROS Other: All systems not noted in ROS Statement are negative. Constitutional: Denies: fever Eyes: Denies: eye pain ENT: Denies: throat pain Respiratory: Denies: dyspnea Cardiovascular: Reports: as per HPI, chest pain Gastrointestinal: Denies: abdominal pain, nausea Musculoskeletal: Denies: back pain <MartínezDenis - Last Filed: 01/16/24 18:57> ROS Statement: Those systems with pertinent positive or pertinent negative responses have been documented in the HPI. Past Medical History Past Medical History: Coronary Artery Disease (CAD), Cancer, Chest Pain / Angina, GERD/Reflux, Hyperlipidemia, Hypertension, Myocardial Infarction ([place]), Osteoarthritis (OA), Prostate Disorder, Renal Disease Additional Past Medical History / Comment(s): Recent upper respiratory tract infection, L renal cancer with nephrectomy/mets L lung and sternum/no longer taking oral chemo d/t it was affecting his kidney/states he receives infusion once a month but does not know what type of infusion last dose was 10/09/23, chronic renal failure stage IV, BPH, newsome's esophagus, gastritis, dry mouth, chronic low back pain, arthritis R great toe. Last Myocardial Infarction Date:: 02/29/20 History of Any Multi-Drug Resistant Organisms: None Reported Past Surgical History: Heart Catheterization, Orthopedic Surgery Additional Past Surgical History / Comment(s): Left nephrectomy 2016, RT HAND 2ND DIGIT LOST TOP OF FINGER IN CRUSHING INJURY, EGDs, colonoscopy, bilateral cataract removals/lens implants. Past Anesthesia/Blood Transfusion Reactions: No Reported Reaction Past Psychological History: Depression Smoking Status: Former smoker Past Alcohol Use History: Rare Past Drug Use History: Marijuana - Past Family History Father Family Medical History: Cancer, Hypertension, Myocardial Infarction ([place]) Additional Family Medical History / Comment(s): SKIN CANCER Mother Family Medical History: Cancer Additional Family Medical History / Comment(s): breast cancer - throat cancer Sister(s) Family Medical History: Cancer Additional Family Medical History / Comment(s): skin/breast and throat cancer <Gustavo Nayak - Last Filed: 01/16/24 17:35> General Exam <Gustavo Nayak - Last Filed: 01/16/24 17:35> Limitations: no limitations General appearance: alert, in no apparent distress Head exam: Present: normocephalic Eye exam: Present: normal appearance Neck exam: Present: normal inspection Respiratory exam: Present: normal lung sounds bilaterally. Absent: chest wall tenderness Cardiovascular Exam: Present: regular rate, normal rhythm Expanded Peripheral pulses: 2+: Radial (R), Radial (L), Posterior Tibialis (R), Posterior Tibialis (L) GI/Abdominal exam: Present: soft. Absent: tenderness Extremities exam: Present: normal inspection. Absent: pedal edema, calf tenderness Neurological exam: Present: alert Psychiatric exam: Present: normal affect, normal mood Skin exam: Present: normal color <Denis Martínez - Last Filed: 01/16/24 18:57> - General Exam Comments Initial Comments: Visual Physical Exam Vital signs reviewed General: Well-appearing, nontoxic, no acute distress. Head: Normocephalic, atraumatic Eyes: PERRLA, EOMI ENT: Airway patent Chest: Nonlabored breathing Skin: No visual rash, normal skin tone Neuro: Alert and oriented 3 Musculoskeletal: No gross abnormalities (Gustavo Nayak) Course Vital Signs 01/16/24 17:20 Temperature 98.6 F Pulse Rate 85 Respiratory 18 Rate Blood Pressure 120/71 O2 Sat by Pulse 98 Oximetry Chest Pain MDM <Gustavo Nayak - Last Filed: 01/16/24 17:35> <Denis Martínez - Last Filed: 01/16/24 18:57> - MDM Quicknote portion performed. Signed Gustavo Nayak PA-C (Gustavo Nayak) EKG interpreted by myself shows sinus rhythm with a rate of 75. ND 172. QRS 98. QT 374. QTc 403. Normal axis. Normal QRS. No acute ST change. Was pt. sent in by a medical professional or institution ([facility], [facility], urgent care, hospital, or snf...) When possible be specific @ -No Did you speak to anyone other than the patient for history (EMS, parent, family, police, friend...)? What history was obtained from this source @ -No Did you review nursing and triage notes (agree or disagree)? Why? @ -I reviewed and agree with nursing and triage notes Were old charts reviewed (outside hosp., previous admission, EMS record, old EKG, old radiological studies, urgent care reports/EKG's, snf records)? Report findings @ -No old charts were reviewed Differential Diagnosis (chest pain, altered mental status, abdominal pain women, abdominal pain men, vaginal bleeding, weakness, fever, dyspnea, syncope, headache, dizziness, GI bleed, back pain, seizure, CVA, palpatations, mental health, musculoskeletal)? @ -Differential Chest Pain: Stable Angina, Unstable Angina, STEMI, NSTEMI Aortic Dissection, Pneumothorax, Musculoskeletal, Esophageal Spasm GERD, Cholecystitis, Pancreatitis, Zoster, this is not meant to be an all-inclusive list. EKG interpreted by me (3pts min.). @ -As above X-rays interpreted by me (1pt min.). @ -Chest x-ray shows no acute process CT interpreted by me (1pt min.). @ -None done U/S interpreted by me (1pt. min.). @ -None done What testing was considered but not performed or refused? (CT, X-rays, U/S, lab s)? Why? @ -None What meds were considered but not given or refused? Why? @ -Consider nitroglycerin however patient symptoms are mild at this time Did you discuss the management of the patient with other professionals (professionals i.e. , PA, [facility], lab, RT, psych nurse, social media senior associate, second grade teacher, teacher, light armored reconnaissance officer, returned case inspector)? Give summary @ -EM, practitioner Brittaney who will admit covering hospital call Was smoking cessation discussed for >3mins.? @ -No Was critical care preformed (if so, how long)? @ -No Were there social determinants of health that impacted care today? How? (Nalini elessness, low income, unemployed, alcoholism, drug addiction, transportation, low edu. Level, literacy, decrease access to med. care, nursing home, rehab)? @ -No Was there de-escalation of care discussed even if they declined (Discuss DNR or withdrawal of care, Hospice)? DNR status @ -No What co-morbidities impacted this encounter? (DM, HTN, Smoking, COPD, CAD, Cancer, CVA, ARF, Chemo, Hep., AIDS, mental health diagnosis, sleep apnea, morbid obesity)? @ -None Was patient admitted / discharged? Hospital course, mention meds given and route, prescriptions, significant lab abnormalities, going to OR and other pertinent info. @ -Patient is updated on results and plan. Patient will be admitted with with cardiac consult. Admission orders written Undiagnosed new problem with uncertain prognosis? @ -No Drug Therapy requiring intensive monitoring for toxicity (Heparin, Nitro, Insulin, Cardizem)? @ -No Were any procedures done? @ -No Diagnosis/symptom? @ -Chest pain Acute, or Chronic, or Acute on Chronic? @ -Acute Uncomplicated (without systemic symptoms) or Complicated (systemic symptoms)? @ -Default Side effects of treatment? @ -No Exacerbation, Progression, or Severe Exacerbation? @ -No Poses a threat to life or bodily function? How? (Chest pain, [place], [place], pneumonia, PE, COPD, DKA, ARF, appy, cholecystitis, CVA, Diverticulitis, Homicidal, Suicidal, threat to staff... and all critical care pts) @ -No (Denis Martínez) Disposition <Gustavo Nayak - Last Filed: 01/16/24 17:35> Is patient prescribed a controlled substance at d/c from ED?: No Time of Disposition: 18:57 <Denis Martínez - Last Filed: 01/16/24 18:57> Clinical Impression: Chest pain Disposition: ADMITTED IP TO THIS HOSP Referrals: Derrell Hansen MD [Primary Care Provider] - 1-2 days
--- NOTE | 2024-01-16 18:01 | XR ---
EXAMINATION TYPE: XR chest 2V DATE OF EXAM: 01/16/2024 COMPARISON: 10/17/2023 INDICATION: Chest pain TECHNIQUE: Frontal and lateral views of the chest are obtained. FINDINGS: The heart size is normal. The pulmonary vasculature is normal. The lungs are clear. There is hyperinflation and flattening the diaphragms compatible with COPD. IMPRESSION: 1. No acute pulmonary process. 2. COPD
[2024-01-16 18:07] LABS: Basophils # (A) 0.1 k/uL (0-0.2); Basophils % (A) 1 %; Eosinophils # (A) 1.4 k/uL (0-0.7); Eosinophils % (A) 15 %; HCT 34.4 % (39.0-53.0); Lymphocytes # (A) 1.5 k/uL (1.0-4.8); Lymphocytes % (A) 16 %; MCH 28.5 pg (25.0-35.0); MCHC 31.9 g/dL (31.0-37.0); MCV 89.4 fL (80.0-100.0); Mean Platelet Volume 8.6; Monocytes # (A) 0.8 k/uL (0-1.0); Monocytes % (A) 8 %; Neutrophils # (A) 5.3 k/uL (1.3-7.7); Neutrophils % (A) 58 %; Platelet Count 403 k/uL (150-450); RBC 3.85 m/uL (4.30-5.90); RDW 13.2 % (11.5-15.5); WBC 9.3 k/uL (3.8-10.6)
[2024-01-16 18:15] LABS: INR 0.9 (<1.2); Partial Thromboplastin Time 25.3 sec (22.0-30.0); Prothrombin Time 10.1 sec (10.0-12.5)
[2024-01-16 18:24] LABS: ALT 12 U/L (4-49); AST 20 U/L (17-59); African American GFR (CKD) 55 (>60 ml/min/1.73 sqM); Albumin 2.8 g/dL (3.5-5.0); Alkaline Phosphatase 68 U/L (38-126); Anion Gap 1 mmol/L; Blood Urea Nitrogen 28 mg/dL (9-20); Calcium 8.6 mg/dL (8.4-10.2); Carbon Dioxide 27 mmol/L (22-30); Chloride 108 mmol/L (98-107); Glucose 80 mg/dL (74-99); Non-African American GFR(CKD) 47 (>60 ml/min/1.73 sqM); Sodium 136 mmol/L (137-145); Total Bilirubin 0.2 mg/dL (0.2-1.3); Total Protein 5.3 g/dL (6.3-8.2)
[2024-01-16] MEDS ORDERED: NITROGLYCERIN SL TABS 0.4 MG TAB SUBLINGUAL PRN (18:57)
[2024-01-16] MEDS: ASPIRIN 81 MG PO STA (19:04)
[2024-01-16] MEDS: NITROGLYCERIN OINT 1 INCH/GM PACKET TOPICAL SCH (19:05)
[2024-01-16] MEDS: TAMSULOSIN 0.4 MG CAP.ER.24H PO SCH (20:10)
[2024-01-16] MEDS: FERROUS SULFATE 325 MG TAB PO SCH (20:11)
[2024-01-16] MEDS: FAMOTIDINE 20 MG TAB PO SCH (20:11)
[2024-01-16] MEDS: amLODIPine 5 MG TAB PO SCH (20:11)
[2024-01-16] MEDS: CLOPIDOGREL 75 MG TAB PO SCH (20:11)
[2024-01-16] MEDS: NON FORMULARY DRUG (Rosuvastatin 20 MG Tablet) PO SCH (21:06)
--- NOTE | 2024-01-17 03:23 | P.HPIM ---
History of Present Illness H&P Date: 01/16/24 Patient is a 83-year-old male with a PMH of hypertension, hyperlipidemia, BPH, chronic kidney disease stage IIIA, renal cell carcinoma status post nephrectomy, who presents to the emergency room with complaints of chest discomfort. Reports that the pain started roughly 2 days ago, on the left side of his chest, waxing and waning, but has recently worsened over the past few hours, sharp in nature, nonpleuritic, with no clear alleviating or exacerbating features, 7 out of 10 at maximal intensity, currently at a 1 out of 10, nonradiating. Denies experiencing cough, shortness of breath, fever, chills, nausea, vomiting, diaphoresis, or dizziness. Denies lower extremity swelling or pain. He denies recent prolonged immobilization or trauma. EKG in the emergency room revealed normal sinus rhythm at [address]/T wave changes noted as reviewed by me. Chest x-ray revealed findings of COPD with laboratory evaluation showing WBC count 9.3, hemoglobin 11.0, sodium 136, chloride 108, BUN 28, creatinine 1.38, troponin less than 0.012. ED documentation reviewed and case discussed with ED provider. Review of systems: Pertinent positives and negatives as discussed in HPI, a complete review of systems was performed and all other systems are negative. Physical examination: Vital signs reviewed General: non toxic, no distress, appears at stated age, normal weight Derm: no unusual rashes/lesions, warm Head: atraumatic, normocephalic, symmetric Eyes: EOMI, no lid lag, anicteric sclera, pupils equal round reactive to light ENT: Nose and ears atraumatic Neck: No cervical lymphadenopathy, trachea midline, supple Mouth: no lip lesion, mucus membranes moist Cardiovascular: S1S2 reg, no murmur, positive dorsalis pedis pulse bilateral, no edema Lungs: CTA bilateral, no rhonchi, no rales, no accessory muscle use Abdominal: soft, nontender to palpation, no guarding Ext: muscle strength 5 out of 5 in all 4 extremities grossly, no gross muscle atrophy, no contractures, Neuro: CN II-XI grossly intact, no gross focal neuro deficits Psych: Alert, oriented, appropriate affect Assessment: Chest pain with atypical features, rule out ACS Chronic conditions: Hypertension, hyperlipidemia, chronic kidney disease stage IIIA, BPH, renal cell carcinoma status post nephrectomy Imaging: EKG in the emergency room revealed normal sinus rhythm at [address]/T wave changes noted as reviewed by me. Chest x-ray revealed findings of COPD Data Review: Laboratory evaluation revealed WBC count 9.3, hemoglobin 11.0, sodium 136, chloride 108, BUN 28, creatinine 1.38, troponin less than 0.012. Plan: Cardiology consult Trend troponin Cardiac monitoring Continue with aspirin and statin Obtain Echocardiogram Resume home medications DVT prophylaxis: Lovenox Subq The patient is admitted with an anticipated less than 2 midnight stay for evaluation of chest pain CODE STATUS: Full Code Discussed with: Patient Anticipated discharge place: Home Past Medical History Past Medical History: Coronary Artery Disease (CAD), Cancer, Chest Pain / Angina, GERD/Reflux, Hyperlipidemia, Hypertension, Myocardial Infarction ([place]), Osteoarthritis (OA), Prostate Disorder, Renal Disease Additional Past Medical History / Comment(s): Recent upper respiratory tract infection, L renal cancer with nephrectomy/mets L lung and sternum/no longer taking oral chemo d/t it was affecting his kidney/states he receives infusion once a month but does not know what type of infusion last dose was 10/09/23, chronic renal failure stage IV, BPH, newsome's esophagus, gastritis, dry mouth, chronic low back pain, arthritis R great toe. Last Myocardial Infarction Date:: 02/29/20 History of Any Multi-Drug Resistant Organisms: None Reported Past Surgical History: Heart Catheterization, Orthopedic Surgery Additional Past Surgical History / Comment(s): Left nephrectomy 2016, RT HAND 2ND DIGIT LOST TOP OF FINGER IN CRUSHING INJURY, EGDs, colonoscopy, bilateral cataract removals/lens implants. Past Anesthesia/Blood Transfusion Reactions: No Reported Reaction Past Psychological History: Depression Smoking Status: Former smoker Past Alcohol Use History: Rare Past Drug Use History: Marijuana - Past Family History Father Family Medical History: Cancer, Hypertension, Myocardial Infarction ([place]) Additional Family Medical History / Comment(s): SKIN CANCER Mother Family Medical History: Cancer Additional Family Medical History / Comment(s): breast cancer - throat cancer Sister(s) Family Medical History: Cancer Additional Family Medical History / Comment(s): skin/breast and throat cancer Medications and Allergies Home Medications Medication Instructions Recorded Confirmed Type Tamsulosin HCl [Flomax] 0.4 mg PO HS 10/12/17 01/16/24 History amLODIPine [Norvasc] 5 mg PO HS 05/25/23 01/16/24 History Aspirin 81 mg PO HS 01/16/24 01/16/24 History Clopidogrel [Plavix] 75 mg PO HS 01/16/24 01/16/24 History Famotidine [Pepcid] 20 mg PO BID 01/16/24 01/16/24 History Ferrous Sulfate [Feosol] 325 mg PO HS 01/16/24 01/16/24 History Rosuvastatin [Crestor] 20 mg PO HS 01/16/24 01/16/24 History Allergies Allergy/AdvReac Type Severity Reaction Status Date / Time atorvastatin calcium AdvReac JOINT PAIN Verified 01/16/24 19:27 [From Lipitor] clindamycin AdvReac JOINT PAIN Verified 01/16/24 19:27 Physical Exam Vitals: Vital Signs Temp Pulse Resp BP Pulse Ox 01/16/24 20:04 60 16 119/69 97 01/16/24 17:20 98.6 F 85 18 120/71 98 Intake and Output 01/16/24 01/16/24 01/17/24 14:59 22:59 06:59 Other: Weight 54.431 kg Results CBC & Chem 7: 01/16/24 17:36 01/16/24 17:36 Labs: Abnormal Lab Results - Last 24 Hours (Table) 01/16/24 01/16/24 Range/Units 17:36 17:36 RBC 3.85 L (4.30-5.90) m/uL Hgb 11.0 L (13.0-17.5) gm/dL Hct 34.4 L (39.0-53.0) % Eosinophils # 1.4 H (0-0.7) k/uL Sodium 136 L (137-145) mmol/L Chloride 108 H (98-107) mmol/L BUN 28 H (9-20) mg/dL Creatinine 1.38 H (0.66-1.25) mg/dL Total Protein 5.3 L (6.3-8.2) g/dL Albumin 2.8 L (3.5-5.0) g/dL
[2024-01-17] MEDS: ATORVASTATIN 80 MG TAB PO STA (04:18)
[2024-01-17] MEDS ORDERED: DOBUTamine DRIP for NUC MED 500 MG/250 ML BAG IV ONE (08:30)
[2024-01-17] MEDS ORDERED: DOBUTamine DRIP for NUC MED 500 MG in DEXTROSE/WATER 1 250ML.BAG IV PRN (08:30)
[2024-01-17] MEDS: ASPIRIN 325 MG TAB PO SCH (09:15)
[2024-01-17] MEDS: FAMOTIDINE 20 MG TAB PO SCH (09:15)
[2024-01-17] MEDS: ENOXAPARIN 40 MG/0.4 ML SYRINGE SQ SCH (09:16)
--- NOTE | 2024-01-17 10:51 | P.CRDCN ---
History of Present Illness Consult date: 01/17/24 Consult reason: chest pain History of present illness: History of present illness: This is an 83-year-old male patient of Dr. Sultana with past medical history of recent TIA, coronary artery disease, hypertension. Patient was hospitalized in September due to right-sided weakness and unsteadiness that lasted for 10 minutes. Patient was diagnosed with TIA and subsequently had a 30-day event monitor. We have been asked to evaluate the patient for chest pain. Patient states that he has had some achy type chest pain for the past 2 days but it has not been very severe. It is currently gone. He denies any radiation of the pain. The pain came on at rest. He denies any shortness of breath, lightheadedness dizziness or palpitations. He has absolutely no symptoms at this time. Patient is seen today in the emergency center waiting for a bed on the observation unit. EKG sinus rhythm with no acute ST-T wave changes. Chest x-ray: No acute process. COPD. WBC 9.3, hemoglobin 11. INR 0.9. Sodium 136, potassium 4, BUN 28 creatinine 1.38. Magnesium 2. Troponin negative x 3. Home cardiac medications: Amlodipine 5 mg at bedtime, aspirin 81 mg at bedtime, Plavix 75 mg at bedtime, ferrous sulfate 325 mg at bedtime, rosuvastatin 20 mg at bedtime. Cardiac event monitor 10/19/2023 reveals sinus rhythm. There was a 3.1-second pause. Echocardiogram performed on 10/17/2023 revealed EF of 55 to 60% mild aortic regurgitation. Mild mitral annular calcification. Lexiscan Cardiolite stress test performed 01/14/2021 revealed no evidence of reve rsible ischemia. Review Of Systems: At the time of my exam: CONSTITUTIONAL: Denies fever or chills. HEENT: Denies blurred vision, vision changes, or eye pain. Denies hemoptysis CARDIOVASCULAR: Denies chest pain. Denies orthopnea. Denies PND. Denies palpitations RESPIRATORY: Denies shortness of breath. GASTROINTESTINAL: Denies abdominal pain. Denies nausea or vomiting. HEMATOLOGIC: Denies bleeding disorders. GENITOURINARY: Denies any blood in urine. SKIN: Denies pruitis. Denies rash. Physical examination: Gen: This is an 83-year-old male in no acute distress VS: reviewed, blood pressure 111/56, heart rate 50, pulse ox 98% on room air. HEENT: Head is atraumatic, normocephalic. Pupils equal, round. Sclerae is anicteric. NECK: Supple. No JVD. LUNGS: Clear to auscultation. No wheezes or rhonchi. No intercostal retractions. HEART: Regular rate and rhythm. No murmur. ABDOMEN: Soft No tenderness. EXTREMITIES: No pedal edema. No calf tenderness. NEUROLOGICAL: Patient is awake, alert and oriented x3. Assessment: Atypical chest pain, acute coronary syndrome ruled out Recent TIA Coronary artery disease history Hypertension Plan: Resume patient's home cardiac medications No need to repeat echocardiogram Obtain dobutamine stress echo today If stress echo is unremarkable, patient is cleared for discharge home and may follow-up with Dr. Sultana in 2 weeks. Thank you kindly for this consultation. Nurse practitioner note has been reviewed, I agree with documented findings and plan of care. Patient was seen and examined. Past Medical History Past Medical History: Coronary Artery Disease (CAD), Cancer, Chest Pain / Angina, GERD/Reflux, Hyperlipidemia, Hypertension, Myocardial Infarction ([place]), Osteoarthritis (OA), Prostate Disorder, Renal Disease Additional Past Medical History / Comment(s): Recent upper respiratory tract infection, L renal cancer with nephrectomy/mets L lung and sternum/no longer taking oral chemo d/t it was affecting his kidney/states he receives infusion once a month but does not know what type of infusion last dose was 10/09/23, chronic renal failure stage IV, BPH, newsome's esophagus, gastritis, dry mouth, chronic low back pain, arthritis R great toe. Last Myocardial Infarction Date:: 02/29/20 History of Any Multi-Drug Resistant Organisms: None Reported Past Surgical History: Heart Catheterization, Orthopedic Surgery Additional Past Surgical History / Comment(s): Left nephrectomy 2016, RT HAND 2ND DIGIT LOST TOP OF FINGER IN CRUSHING INJURY, EGDs, colonoscopy, bilateral cataract removals/lens implants. Past Anesthesia/Blood Transfusion Reactions: No Reported Reaction Past Psychological History: Depression Smoking Status: Former smoker Past Alcohol Use History: Rare Past Drug Use History: Marijuana - Past Family History Father Family Medical History: Cancer, Hypertension, Myocardial Infarction ([place]) Additional Family Medical History / Comment(s): SKIN CANCER Mother Family Medical History: Cancer Additional Family Medical History / Comment(s): breast cancer - throat cancer Sister(s) Family Medical History: Cancer Additional Family Medical History / Comment(s): skin/breast and throat cancer Medications and Allergies Home Medications Medication Instructions Recorded Confirmed Type Tamsulosin HCl [Flomax] 0.4 mg PO HS 10/12/17 01/16/24 History amLODIPine [Norvasc] 5 mg PO HS 05/25/23 01/16/24 History Aspirin 81 mg PO HS 01/16/24 01/16/24 History Clopidogrel [Plavix] 75 mg PO HS 01/16/24 01/16/24 History Famotidine [Pepcid] 20 mg PO BID 01/16/24 01/16/24 History Ferrous Sulfate [Feosol] 325 mg PO HS 01/16/24 01/16/24 History Rosuvastatin [Crestor] 20 mg PO HS 01/16/24 01/16/24 History Allergies Allergy/AdvReac Type Severity Reaction Status Date / Time atorvastatin calcium AdvReac JOINT PAIN Verified 01/16/24 19:27 [From Lipitor] clindamycin AdvReac JOINT PAIN Verified 01/16/24 19:27 Physical Exam Vitals: Vital Signs Temp Pulse Resp BP Pulse Ox 01/17/24 10:18 97.5 F L 65 22 151/74 99 01/17/24 09:12 97.8 F 72 18 139/76 97 01/17/24 02:00 59 L 16 102/66 95 01/17/24 00:00 57 L 16 122/71 97 01/16/24 20:04 60 16 119/69 97 01/16/24 17:20 98.6 F 85 18 120/71 98 Intake and Output 01/16/24 01/17/24 01/17/24 22:59 06:59 14:59 Other: Weight 54.431 kg Results 01/16/24 17:36 01/16/24 17:36 Cardiac Enzymes 01/16/24 01/16/24 01/16/24 Range/Units 17:36 17:36 20:32 AST 20 (17-59) U/L Troponin I <0.012 <0.012 (0.000-0.034) ng/mL 01/16/24 Range/Units 23:50 AST (17-59) U/L Troponin I <0.012 (0.000-0.034) ng/mL Coagulation 01/16/24 Range/Units 17:36 PT 10.1 (10.0-12.5) sec APTT 25.3 (22.0-30.0) sec CBC 01/16/24 Range/Units 17:36 WBC 9.3 (3.8-10.6) k/uL RBC 3.85 L (4.30-5.90) m/uL Hgb 11.0 L (13.0-17.5) gm/dL Hct 34.4 L (39.0-53.0) % Plt Count 403 (150-450) k/uL Comprehensive Metabolic Panel 01/16/24 Range/Units 17:36 Sodium 136 L (137-145) mmol/L Potassium 4.0 (3.5-5.1) mmol/L Chloride 108 H (98-107) mmol/L Carbon Dioxide 27 (22-30) mmol/L BUN 28 H (9-20) mg/dL Creatinine 1.38 H (0.66-1.25) mg/dL Glucose 80 (74-99) mg/dL Calcium 8.6 (8.4-10.2) mg/dL AST 20 (17-59) U/L ALT 12 (4-49) U/L Alkaline Phosphatase 68 (38-126) U/L Total Protein 5.3 L (6.3-8.2) g/dL Albumin 2.8 L (3.5-5.0) g/dL Current Medications Generic Name Dose Route Start Last Admin Trade Name Freq PRN Reason Stop Dose Admin Amlodipine Besylate 5 mg 01/16/24 21:00 01/16/24 20:11 Amlodipine 5 Mg Tab PO 5 mg HS JAY JAY Administration Aspirin 325 mg 01/17/24 09:00 01/17/24 09:15 Aspirin 325 Mg Tab PO 325 mg DAILY JAY JAY Administration Atorvastatin Calcium 80 mg 01/17/24 21:00 Atorvastatin 80 Mg Tab PO HS JAY JAY Clopidogrel Bisulfate 75 mg 01/16/24 21:00 01/16/24 20:11 Clopidogrel 75 Mg Tab PO 75 mg HS JAY JAY Administration Enoxaparin Sodium 40 mg 01/17/24 09:00 01/17/24 09:16 Enoxaparin 40 Mg/0.4 Ml Syringe SQ 40 mg DAILY JAY JAY Administration Famotidine 20 mg 01/17/24 09:00 01/17/24 09:15 Famotidine 20 Mg Tab PO 20 mg DAILY JAY JAY Administration Ferrous Sulfate 325 mg 01/16/24 21:00 01/16/24 20:11 Ferrous Sulfate 325 Mg Tab PO 325 mg HS JAY JAY Administration Nitroglycerin 0.4 mg 01/16/24 18:57 Nitroglycerin Sl Tabs 0.4 Mg Tab SUBLINGUAL Q5M PRN Chest Pain Nitroglycerin 0.5 inch 01/16/24 19:00 01/17/24 06:51 Nitroglycerin Oint 1 Inch/Gm Packet TOPICAL 0.5 inch Q6HR JAY JAY Administration Tamsulosin HCl 0.4 mg 01/16/24 21:00 01/16/24 20:10 Tamsulosin 0.4 Mg Cap.Er.24h PO 0.4 mg HS JAY JAY Administration Intake and Output 01/16/24 01/17/24 01/17/24 22:59 06:59 14:59 Other: Weight 54.431 kg 01/16/24 17:36 01/16/24 17:36
[2024-01-17 12:20] LABS: Chol/HDL Ratio 2.47 Ratio; LDL Cholesterol,Calculated 54.8 mg/dL (0.0-131.0)
--- NOTE | 2024-01-17 12:23 | CA ---
Dobutamine Stress Echocardiogram Report Kurtis Mckeon Age: 83 Gender: M : 1940 Exam Date: 01/17/2024 11:10 Exam Location: [facility] Ordering Physician: Liliam Blake Referring Physician: Lou GARZA News Photographer: CICI, Technologist: Ht (in): Wt (lb): Procedure CPT: Indication: Chest Pain ICD-9 Codes: Rhythm: Patient History: Chest pain and hypertension Cardiac Medications: Medications in past 24 hours: Contrast: Total Dose (mL): Stress Results Protocol: Dobutamine Peak Dose (???g/kg/min): 30 Duration (min:sec): Atropine:(mg) Target HR: 117 Double Product: [id number] Resting HR: 72 Resting BP: 149 / 76 Peak HR: 120 Peak BP: 172 / 72 Max Predicted HR: 138 87 % Max Predicted HR Stress Summary: BP Response: Reason for Termination: Target HR,INFUSION COMPLETE Cardiac Symptoms: NO SYMPTOMS ECG Analysis Resting EKG: Stress EKG: Arrhythmia: Echo Analysis Base Echo Analysis: Low Echo Anaylsis: Peak Echo Analysis: Recovery Echo: MEASUREMENTS (Male/Female) Normal Values CONCLUSIONS Normal electrocardiogram and echocardiogram in response to dobutamine Dr. Jonatan Torres MD (Electronically Signed) Final Date: 17 Jan 2024 12:22
[2024-01-17 16:54] VITALS: BP 133/75; PULSE 76; RESP 16; TEMP 98.7
--- NOTE | 2024-01-17 17:02 | P.DS ---
Providers Date of admission: 01/16/24 18:59 Expected date of discharge: 01/17/24 Attending physician: Gifty Khan MD Consults: 01/16/24 18:57 Consult Physician Urgent Consulting Provider: Jonatan Torres Consult Reason/Comments: cp Do you want consulting provider notified?: Yes [facility] Course: Discharge Diagnosis: Atypical chest pain, acute coronary event ruled out. Recent echocardiogram revealing a preserved EF of 55%. Troponins trended all negative at less than 0.012 x 3 draws. Patient was evaluated by inseminator and taken for a Lexiscan stress test which was negative. Patient cleared from cardiac perspective and to follow-up outpatient in their office in 1 week. No medication changes were made during this admission. Patient to continue with aspirin 81 mg daily, Plavix 75 mg daily, amlodipine 5 mg daily, and rosuvastatin 20 mg nightly. Recent TIA. Continue dual antiplatelet therapy with aspirin 81 mg daily and Plavix 75 mg nightly. Hypertension. Continue daily medication regimen with amlodipine 5 mg nightly. Hyperlipidemia. Continue daily medication regimen with rosuvastatin 20 mg nightly. BPH. Continue daily medication regimen with Flomax 0.4 mg nightly. Iron deficiency anemia. Hemoglobin stable and at baseline at 11.0. Patient to continue with ferrous sulfate 325 mg nightly. Chronic kidney disease stage IIIb. Renal function stable and at baseline. Continue to follow-up outpatient with PCP for long-term monitoring/management. Hospital Course: Patient is a very pleasant 83-year-old male with a past medical history of CAD, hypertension, hyperlipidemia, CKD stage IIIb and recent TIA. He presented to the emergency department on 01/16/2024 with a chief complaint of chest pain. He underwent evaluation in the emergency department. Vital signs upon arrival show blood pressure 120/71, heart rate 85, respiratory rate 18, temp 98.6 F, and SpO2 of 98% on room air. EKG completed showing normal sinus rhythm at 75 bpm with no noted T wave or ST abnormalities showing no signs of acute ischemia upon personal review and interpretation. Chest x-ray completed showing signs of COPD with hyperinflation and flattening of the diaphragm otherwise negative for acute cardiopulmonary process. Labs completed and reviewed. CBC showing mild normocytic anemia with hemoglobin of 11.0 and slight elevation of eosinophils at 1.4. Coagulation profile normal findings. BMP showing sodium of 136, chloride of 108, bicarb of 27, and anion gap of 1. Renal function consistent with previously known stage III CKD with BUN of 28, creatinine of 1.38, GFR 47 with baseline creatinine of 1.3. Magnesium normal findings at 2.0. Lipid profile unremarkable. Troponin was negative at less than 0.012. Patient was admitted under our services with consultation to cardiology. Patient reporting no further episodes of chest pain/discomfort and currently free from any complaints. Troponins were trended overnight all negative at less than 0.012 x 3 draws. Lipid profile was unremarkable. Patient was taken for a dobutamine stress echo which revealed normal electrocardiogram and echocardiogram response to dobutamine. Patient continued to have no further complaints or no further reports of chest pain. He was cleared from cardiology perspective for discharge recommending outpatient follow-up in their office in 1 week. Patient is medically stable for discharge at this time. Patient to follow-up with PCP in 1 to 2 days and with cardiology in 1 week. Physical exam: Patient seen and examined at bedside and was free from any chest pain or other complaints. Vital signs reviewed and stable. General: Nontoxic, no distress and appears stated age. Derm: Skin warm and dry, normal coloration for ethnicity. Head: Atraumatic, normocephalic and symmetric. Eyes: EOMs intact, no lid lag, and anicteric sclera Mouth: no lip lesions, mucus membranes moist Cardiovascular: regular rate and rhythm with normal S1S2, no murmur, positive posterior tibial pulses bilaterally, and cap refill < 2 seconds. Lungs: Respirations even, regular, and unlabored on room air. Lungs CTA bilaterally, no rhonchi, no rales, no wheezing, and no accessory muscle usage. Abdominal: soft, nontender to palpation, no guarding, no appreciable organomegaly Ext: ROM intact. No gross muscle atrophy, no edema, no contractures Neuro: Speech clear, face symmetrical and CN II-XII grossly intact with no noted focal neuro deficits Psych: Alert and oriented to person, place, time, and situation. Appropriate and pleasant affect. A total of 33 minutes of time were spent preparing this complex discharge summary. Pt was discharged on 01/17/2024 at 4:49 PM. Patient was seen independently by Nurse Practitioner. This document was prepared using [employer] dictation software. Please allow for errors in pearl glue drier while rare they do occur. Rubio Chamorro NP rendered care for this patient independently, reviewed the findings and plan as documented in the note above. I did not physically speak with or examine the patient on this date. Patient Condition at Discharge: Stable Plan - Discharge Summary New Discharge Prescriptions: Continue Tamsulosin HCl [Flomax] 0.4 mg PO HS Aspirin 81 mg PO HS Famotidine [Pepcid] 20 mg PO BID amLODIPine [Norvasc] 5 mg PO HS Clopidogrel [Plavix] 75 mg PO HS Rosuvastatin [Crestor] 20 mg PO HS Ferrous Sulfate [Iron (65 MG Elemental)] 325 mg PO HS Discharge Medication List Tamsulosin HCl [Flomax] 0.4 mg PO HS 10/12/17 [History] amLODIPine [Norvasc] 5 mg PO HS 05/25/23 [History] Aspirin 81 mg PO HS 01/16/24 [History] Clopidogrel [Plavix] 75 mg PO HS 01/16/24 [History] Famotidine [Pepcid] 20 mg PO BID 01/16/24 [History] Ferrous Sulfate [Iron (65 MG Elemental)] 325 mg PO HS 01/16/24 [History] Rosuvastatin [Crestor] 20 mg PO HS 01/16/24 [History] Follow up Appointment(s)/Referral(s): Javi Sultana MD [STAFF PHYSICIAN] - 1 Week Derrell Hansen MD [REFERRING] - 1-2 days Patient Instructions/Handouts: Chest Pain (DC) Activity/Diet/Wound Care/Special Instructions: Activity: As tolerated. Take breaks as needed. Diet: Heart healthy and carb consistent diet. Avoid salts, or foods with hidden salts such as canned or boxed foods and frozen dinners. Extra salt makes your heart work harder and traps the fluid in your body for longer. Special Instructions: Take all of your medications as directed and remember to keep all of your doctor's appointments and follow-up as needed. Thank you for allowing us to participate in your care, it was truly a pleasure having you for our patient!!! . Discharge Disposition: HOME SELF-CARE
[2024-01-17] MEDS ORDERED: ATORVASTATIN 80 MG TAB PO SCH (21:00)
== END 2024-01-17 17:32 | disposition home or self-care (01) ==
LOC: EC 17:10 → 6NMEDSUR 18:59
PROVIDERS: ADMIT Internal Medicine; ATTEND Internal Medicine
DX: R07.89 Other chest pain (principal); I12.9 Hypertensive chronic kidney disease with stage 1 through stage 4 chronic kidney disease, or unspecified chronic kidney disease; N18.32 Chronic kidney disease, stage 3b; I25.10 Atherosclerotic heart disease of native coronary artery without angina pectoris; E78.5 Hyperlipidemia, unspecified; N40.0 Benign prostatic hyperplasia without lower urinary tract symptoms; J44.9 Chronic obstructive pulmonary disease, unspecified; I08.0 Rheumatic disorders of both mitral and aortic valves; D50.9 Iron deficiency anemia, unspecified; Z79.82 Long term (current) use of aspirin; Z79.02 Long term (current) use of antithrombotics/antiplatelets; Z79.899 Other long term (current) drug therapy; Z88.1 Allergy status to other antibiotic agents; Z88.8 Allergy status to other drugs, medicaments and biological substances; Z87.891 Personal history of nicotine dependence; Z85.528 Personal history of other malignant neoplasm of kidney; Z90.5 Acquired absence of kidney; Z86.73 Personal history of transient ischemic attack (TIA), and cerebral infarction without residual deficits
CPT/HCPCS: 96372; 99285; 36415; 93005; 93351; 80061; 80053; 83735; 84484; 85025; 85610; 85730; 71046; G0378 ×2; J1650

== ENCOUNTER 2024-02-21 12:38 | Emergency (ER) | payer OTHER ==
--- NOTE | 2024-02-21 13:49 | ED ---
Neck Injury/Pain HPI - General Source: patient, RN notes reviewed Mode of arrival: ambulatory Limitations: no limitations - History of Present Illness MD Complaint: neck pain <Bobbi Ragsdale - Last Filed: 02/21/24 13:48> - General Source: RN notes reviewed <Sobia Cee - Last Filed: 02/21/24 16:59> - General Chief Complaint: Neck Pain/Injury Stated Complaint: Neck pain Time Seen by Provider: 02/21/24 13:48 - History of Present Illness Initial Comments: Quick Note: This is an 83 year old male who presents to the emergency department for neck pain. States that it began a couple of weeks ago. Denies any injuries. Pain is in the back of the neck. He is taking Tylenol without relief in symptoms. (Bobbi Ragsdale) 83-year-old male presenting to the ER with chief complaint of neck pain x 2 weeks. Denies any injuries or trauma. Reports pain is in the back of his neck and is worse with movement. His primary care advised him to take Tylenol for osteoarthritis of the neck which slightly improved symptoms but not completely. Patient is looking for better pain relief at this time. Denies fevers, chills, chest pain, shortness of breath. (Sobia Cee) - Related Data Home Medications Medication Instructions Recorded Confirmed Tamsulosin HCl [Flomax] 0.4 mg PO HS 10/12/17 01/16/24 amLODIPine [Norvasc] 5 mg PO HS 05/25/23 01/16/24 Aspirin 81 mg PO HS 01/16/24 01/16/24 Clopidogrel [Plavix] 75 mg PO HS 01/16/24 01/16/24 Famotidine [Pepcid] 20 mg PO BID 01/16/24 01/16/24 Ferrous Sulfate [Iron (65 MG 325 mg PO HS 01/16/24 01/16/24 Elemental)] Rosuvastatin [Crestor] 20 mg PO HS 01/16/24 01/16/24 Allergies Allergy/AdvReac Type Severity Reaction Status Date / Time atorvastatin calcium AdvReac JOINT PAIN Verified 01/16/24 19:27 [From Lipitor] clindamycin AdvReac JOINT PAIN Verified 01/16/24 19:27 Review of Systems ROS Other: All systems not noted in ROS Statement are negative. <Bobbi Ragsdale - Last Filed: 02/21/24 13:48> ROS Other: All systems not noted in ROS Statement are negative. <Sobia Cee - Last Filed: 02/21/24 16:59> ROS Statement: Those systems with pertinent positive or pertinent negative responses have been documented in the HPI. Past Medical History Past Medical History: Coronary Artery Disease (CAD), Cancer, Chest Pain / Angina, GERD/Reflux, Hyperlipidemia, Hypertension, Myocardial Infarction ([place]), Osteoarthritis (OA), Prostate Disorder, Renal Disease Additional Past Medical History / Comment(s): Recent upper respiratory tract infection, L renal cancer with nephrectomy/mets L lung and sternum/no longer taking oral chemo d/t it was affecting his kidney/states he receives infusion once a month but does not know what type of infusion last dose was 10/09/23, chronic renal failure stage IV, BPH, newsome's esophagus, gastritis, dry mouth, chronic low back pain, arthritis R great toe. Last Myocardial Infarction Date:: 02/29/20 History of Any Multi-Drug Resistant Organisms: None Reported Past Surgical History: Heart Catheterization, Orthopedic Surgery Additional Past Surgical History / Comment(s): Left nephrectomy 2016, RT HAND 2ND DIGIT LOST TOP OF FINGER IN CRUSHING INJURY, EGDs, colonoscopy, bilateral cataract removals/lens implants. Past Anesthesia/Blood Transfusion Reactions: No Reported Reaction Past Psychological History: Depression Smoking Status: Former smoker Past Alcohol Use History: Rare Past Drug Use History: Marijuana - Past Family History Father Family Medical History: Cancer, Hypertension, Myocardial Infarction ([place]) Additional Family Medical History / Comment(s): SKIN CANCER Mother Family Medical History: Cancer Additional Family Medical History / Comment(s): breast cancer - throat cancer Sister(s) Family Medical History: Cancer Additional Family Medical History / Comment(s): skin/breast and throat cancer <Bobbi Ragsdale - Last Filed: 02/21/24 13:48> General Exam Limitations: no limitations <Bobbi Ragsdale - Last Filed: 02/21/24 13:48> General appearance: alert, in no apparent distress Head exam: Present: atraumatic, normocephalic, normal inspection Eye exam: Present: normal appearance, PERRL, EOMI. Absent: scleral icterus, conjunctival injection, periorbital swelling ENT exam: Present: normal exam, mucous membranes moist Neck exam: Present: normal inspection, full ROM. Absent: tenderness, meningismus, lymphadenopathy Respiratory exam: Present: normal lung sounds bilaterally (Pain with flexion, extension and lateral rotation). Absent: respiratory distress, wheezes, rales, rhonchi, stridor Cardiovascular Exam: Present: regular rate, normal rhythm, normal heart sounds. Absent: systolic murmur, diastolic murmur, rubs, gallop, clicks GI/Abdominal exam: Present: soft, normal bowel sounds. Absent: distended, tenderness, guarding, rebound, rigid Extremities exam: Present: normal inspection, full ROM, normal capillary refill. Absent: tenderness, pedal edema, joint swelling, calf tenderness Back exam: Present: normal inspection Neurological exam: Present: alert, oriented X3, CN II-XII intact Psychiatric exam: Present: normal affect, normal mood Skin exam: Present: warm, dry, intact, normal color. Absent: rash <Sobia Cee - Last Filed: 02/21/24 16:59> - General Exam Comments Initial Comments: Visual Physical Exam Vital signs reviewed General: Well-appearing, nontoxic, no acute distress. Head: Normocephalic, atraumatic Eyes: PERRLA, EOMI ENT: Airway patent Chest: Nonlabored breathing Skin: No visual rash, normal skin tone Neuro: Alert and oriented 3 Musculoskeletal: No gross abnormalities (Bobbi Ragsdale) Course Vital Signs 02/21/24 13:39 Temperature 98.2 F Pulse Rate 77 Respiratory 16 Rate Blood Pressure 154/79 O2 Sat by Pulse 99 Oximetry Medical Decision Making <Bobbi Ragsdale - Last Filed: 02/21/24 13:48> <Sobia Cee - Last Filed: 02/21/24 16:59> - Medical Decision Making I performed the QuickNote portion of this chart. Signed Bobbi Ragsdale PA-C. (Bobbi Ragsdale) Was pt. sent in by a medical professional or institution ([facility], C CONSULTANT, urgent care, hospital, or prison...) When possible be specific @ -No Did you speak to anyone other than the patient for history (EMS, parent, family, police, friend...)? What history was obtained from this source @ -No Did you review nursing and triage notes (agree or disagree)? Why? @ -I reviewed and agree with nursing and triage notes Were old charts reviewed (outside hosp., previous admission, EMS record, old EKG, old radiological studies, urgent care reports/EKG's, prison records)? Report findings @ -No old charts were reviewed Differential Diagnosis (chest pain, altered mental status, abdominal pain women, abdominal pain men, vaginal bleeding, weakness, fever, dyspnea, syncope, headache, dizziness, GI bleed, back pain, seizure, CVA, palpatations, mental health, musculoskeletal)? @ -Differential Musculoskeletal Muscular strain, contusion, ligament sprain, fracture, arthritis, septic arthritis, bursitis, cellulitis, muscle spasm, nerve compression, DVT, arterial occlusion, herpes zoster, electrolyte abnormality, tumor.... This is not meant to be in all inclusive list EKG interpreted by me (3pts min.). @ -None X-rays interpreted by me (1pt min.). @ -X-ray reveals no fracture or dislocation, there is moderate degenerative disc disease changes of cervical spine worse at C5-C7 CT interpreted by me (1pt min.). @ -None done U/S interpreted by me (1pt. min.). @ -None done What testing was considered but not performed or refused? (CT, X-rays, U/S, labs)? Why? @ -Labs not indicated at this time due to no red flag symptoms or sign of bacterial infection What meds were considered but not given or refused? Why? @ -None Did you discuss the management of the patient with other professionals (professionals i.e. , PA, C CONSULTANT, lab, RT, psych nurse, social service technician, transit department clerk, teacher, flight communications officer, caser)? Give summary @ -No Was smoking cessation discussed for >3mins.? @ -No Was critical care preformed (if so, how long)? @ -No Were there social determinants of health that impacted care today? How? (Homelessness, low income, unemployed, alcoholism, drug addiction, transportation, low edu. Level, literacy, decrease access to med. care, halfway, rehab)? @ -No Was there de-escalation of care discussed even if they declined (Discuss DNR or withdrawal of care, Hospice)? DNR status @ -No What co-morbidities impacted this encounter? (DM, HTN, Smoking, COPD, CAD, Cancer, CVA, ARF, Chemo, Hep., AIDS, mental health diagnosis, sleep apnea, morbid obesity)? @ -None Was patient admitted / discharged? Hospital course, mention meds given and route, prescriptions, significant lab abnormalities, going to OR and other pertinent info. @ -Hospital course Undiagnosed new problem with uncertain prognosis? @ -Patient was discharged. Patient was seen and evaluated for neck pain x 2 weeks. Denies trauma, injury, there are no red flag symptoms at this time. Vitals are stable. No sign of bacterial infection. X-ray reveals no fracture or dislocation, there is moderate degenerative disc disease changes cervical spi ne worse at C5-C7. Diagnosis of degenerative disc disease of cervical spine discussed with patient. Supportive care discussed. Strict return/alarm symptoms discussed with patient in detail and he shows understanding and agrees to plan. Tylenol 3 was given for pain. Advised to follow-up closely with PCP. Case discussed with my attending Dr. Pitt. Patient discharged in stable condition Drug Therapy requiring intensive monitoring for toxicity (Heparin, Nitro, Insulin, Cardizem)? @ -No Were any procedures done? @ -No Diagnosis/symptom? @ -Degenerative disc disease cervical spine Acute, or Chronic, or Acute on Chronic? @ -Acute Uncomplicated (without systemic symptoms) or Complicated (systemic symptoms)? @ -Uncomplicated Side effects of treatment? @ -No Exacerbation, Progression, or Severe Exacerbation? @ -No Poses a threat to life or bodily function? How? (Chest pain, [place], [place], pneumonia, PE, COPD, DKA, ARF, appy, cholecystitis, CVA, Diverticulitis, Homicidal, Suicidal, threat to staff... and all critical care pts) @ -No (Sobia Cee) Disposition <Bobbi Ragsdale - Last Filed: 02/21/24 13:48> Is patient prescribed a controlled substance at d/c from ED?: No Time of Disposition: 16:44 <Sobia Cee - Last Filed: 02/21/24 16:59> Clinical Impression: Osteoarthritis cervical spine Disposition: HOME SELF-CARE Condition: Stable Instructions (If sedation given, give patient instructions): Degenerative Disc Disease (ED) Additional Instructions: Please follow-up with PCP. Please return to the Emergency Department if symptoms worsen or any other concerns. Referrals: Derrell Cordova DO [Primary Care Provider] - 1-2 days
--- NOTE | 2024-02-21 14:27 | XR ---
EXAMINATION TYPE: XR cervical spine comp DATE OF EXAM: 02/21/2024 2:22 PM CLINICAL INDICATION:Male, 83 years old with history of Pain; COMPARISON: None TECHNIQUE: The cervical spine was imaged in frontal, lateral, odontoid and bilateral oblique. FINDINGS: The osseous structures show normal alignment without evidence of an acute fracture. There are osteoph ytes noted throughout the cervical spine on the anterior and lateral aspects of the vertebral bodies. The intervertebral disk spaces are narrowed at multiple levels. Pedicles are intact. Soft tissues a re within normal limits. The odontoid appears intact. IMPRESSION: 1. No fracture or dislocation. 2. Moderate degenerative disc disease changes of the cervical spine worse at C5-C7.
[2024-02-21] MEDS: ACET/COD 300 MG/30 MG STARTER PACK 6 TAB BTL PO STA (16:51)
[2024-02-21 17:00] VITALS: BP 146/70; PULSE 76; RESP 18; TEMP 97.9
== END 2024-02-21 16:58 | disposition home or self-care (01) ==
LOC: EC 12:38
DX: M47.812 Spondylosis without myelopathy or radiculopathy, cervical region (principal); F12.90 Cannabis use, unspecified, uncomplicated; Z87.891 Personal history of nicotine dependence; Z88.1 Allergy status to other antibiotic agents; Z88.8 Allergy status to other drugs, medicaments and biological substances
CPT/HCPCS: 72050; 99283

== ENCOUNTER 2024-03-19 17:21 | Emergency (ER) | payer OTHER, MEDICARE ==
[2024-03-19 17:32] VITALS: RESP 18; TEMP 97.9
--- NOTE | 2024-03-19 18:03 | ED ---
Abdominal Pain HPI - General Chief Complaint: Abdominal Pain Stated Complaint: Abdominal pain Time Seen by Provider: 03/19/24 17:35 Source: patient, RN notes reviewed Mode of arrival: ambulatory Limitations: no limitations - History of Present Illness Initial Comments: This is an 83-year-old male who presents to the emergency department for abdominal pain. Reports problems with intermittent abdominal pain for the last couple of weeks. Unsure of anything that may trigger these attacks. States that this most recently happened around 8 AM while he was at work and lasted for about 4-5 minutes. These episodes never last longer than a couple of minutes. Pain is localized to the upper abdomen. He does have some dry heaving associated with this. Denies any changes in bowel or bladder habits. Also denies any fevers or chills. He went to urgent care today and states that they tested his urine and were concerned about problems related to his gallbladder, and he was advised to come to the emergency department for further evaluation. MD Complaint: abdominal pain - Related Data Home Medications Medication Instructions Recorded Confirmed Tamsulosin HCl [Flomax] 0.4 mg PO HS 10/12/17 01/16/24 amLODIPine [Norvasc] 5 mg PO HS 05/25/23 01/16/24 Aspirin 81 mg PO HS 01/16/24 01/16/24 Clopidogrel [Plavix] 75 mg PO HS 01/16/24 01/16/24 Famotidine [Pepcid] 20 mg PO BID 01/16/24 01/16/24 Ferrous Sulfate [Iron (65 MG 325 mg PO HS 01/16/24 01/16/24 Elemental)] Rosuvastatin [Crestor] 20 mg PO HS 01/16/24 01/16/24 Previous Rx's Medication Instructions Recorded Ondansetron Odt [Zofran Odt] 4 mg PO Q8HR PRN #15 tab 03/19/24 Allergies Allergy/AdvReac Type Severity Reaction Status Date / Time atorvastatin calcium AdvReac JOINT PAIN Verified 03/19/24 17:32 [From Lipitor] clindamycin AdvReac JOINT PAIN Verified 03/19/24 17:32 Review of Systems ROS Statement: Those systems with pertinent positive or pertinent negative responses have been documented in the HPI. ROS Other: All systems not noted in ROS Statement are negative. Past Medical History Past Medical History: Coronary Artery Disease (CAD), Cancer, Chest Pain / Angina, GERD/Reflux, Hyperlipidemia, Hypertension, Myocardial Infarction ([place]), Osteoarthritis (OA), Prostate Disorder, Renal Disease Additional Past Medical History / Comment(s): Recent upper respiratory tract infection, L renal cancer with nephrectomy/mets L lung and sternum/no longer taking oral chemo d/t it was affecting his kidney/states he receives infusion once a month but does not know what type of infusion last dose was 10/09/23, chronic renal failure stage IV, BPH, newsome's esophagus, gastritis, dry mouth, chronic low back pain, arthritis R great toe. Last Myocardial Infarction Date:: 02/29/20 History of Any Multi-Drug Resistant Organisms: None Reported Past Surgical History: Heart Catheterization, Orthopedic Surgery Additional Past Surgical History / Comment(s): Left nephrectomy 2016, RT HAND 2ND DIGIT LOST TOP OF FINGER IN CRUSHING INJURY, EGDs, colonoscopy, bilateral cataract removals/lens implants. Past Anesthesia/Blood Transfusion Reactions: No Reported Reaction Past Psychological History: Depression Smoking Status: Former smoker Past Alcohol Use History: Rare Past Drug Use History: Marijuana - Past Family History Father Family Medical History: Cancer, Hypertension, Myocardial Infarction ([place]) Additional Family Medical History / Comment(s): SKIN CANCER Mother Family Medical History: Cancer Additional Family Medical History / Comment(s): breast cancer - throat cancer Sister(s) Family Medical History: Cancer Additional Family Medical History / Comment(s): skin/breast and throat cancer General Exam Limitations: no limitations General appearance: alert, in no apparent distress Head exam: Present: atraumatic, normocephalic, normal inspection Respiratory exam: Present: normal lung sounds bilaterally. Absent: respiratory distress, wheezes, rales, rhonchi, stridor Cardiovascular Exam: Present: regular rate, normal rhythm, normal heart sounds. Absent: systolic murmur, diastolic murmur, rubs, gallop, clicks GI/Abdominal exam: Present: soft, normal bowel sounds. Absent: distended, tenderness Neurological exam: Present: alert, oriented X3, CN II-XII intact Psychiatric exam: Present: normal affect, normal mood Skin exam: Present: warm, dry, intact, normal color. Absent: rash Course Vital Signs 03/19/24 03/19/24 17:29 19:29 Temperature 97.9 F Pulse Rate 78 73 Respiratory 18 18 Rate Blood Pressure 114/66 114/65 O2 Sat by Pulse 97 98 Oximetry Medical Decision Making - Medical Decision Making This is an 83 year old male who presents to the emergency department for abdominal pain. Was pt. sent in by a medical professional or institution? @ -No Did you speak to anyone other than the patient for history? @ -No Did you review nursing and triage notes? @ -Yes, and I agree, it is accurate with regards to the patient's symptoms. Were old charts reviewed? @ -No Differential Diagnosis? @ -Differential Abdominal Pain Men: Appendicitis, cholecystitis, diverticulosis, ischemic bowel, pancreatitis, hepatitis, UTI, gastroenteritis, AAA, incarcerated hernia, bowel obstruction, co nstipation, inflammatory bowel, hepatitis, peptic ulcer disease, splenic infarction, perforated viscus, testicular torsion, this is not meant to be an all-inclusive list EKG interpreted by me (3pts min.)? @ -EKG interpreted by me demonstrating the following: Sinus rhythm. Ventricular rate 74 bpm, MS interval 198 ms, QRS duration 96 ms, QTc 423 ms. X-rays interpreted by me (1pt min.)? @ -Not obtained CT interpreted by me (1pt min.)? @ -Not obtained U/S interpreted by me (1pt. min.)? @ -Gallbladder ultrasound obtained. My interpretation identifies no evidence of cholelithiasis. What testing was considered but not performed? (CT, X-rays, U/S, labs)? Why? @ -None What meds were considered but not given? Why? @ -None Did you discuss the management of the patient with other professionals? @ -No Did you reconcile home meds? @ -No Was smoking cessation discussed for >3mins.? @ -No Was critical care preformed (if so, how long)? @ -No Were there social determinants of health that impacted care today? How? (Homelessness, low income, unemployed, alcoholism, drug addiction, transportation, low edu. Level, literacy, decrease access to med. care, care home, rehab)? @ -No Was there de-escalation of care discussed even if they declined? (Discuss DNR or withdrawal of care, Hospice)? @ -No What co-morbidities impacted this encounter? (DM, HTN, Smoking, COPD, CAD, Cancer, CVA, Hep., AIDS, mental health diagnosis, sleep apnea, morbid obesity)? @ -None Was patient admitted / discharged? @ -Discharged. Lab work unremarkable. Slightly decreased hemoglobin and renal function are stable when compared with prior. Urinalysis negative for signs of infection or other irregularities. Gallbladder ultrasound obtained demonstrating no gallstones or biliary ductal dilation. 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 This will need follow-up on an outpatient basis. Patient declined the need for any medication in the emergency department. He was given a prescription for Zofran in the event he has any additional nausea. Otherwise advised follow-up with his primary care provider. Undiagnosed new problem with uncertain prognosis? @ -None Drug Therapy requiring intensive monitoring for toxicity (Heparin, Nitro, Insulin, Cardizem)? @ -None Were any procedures done? @ -None Diagnosis/symptom? @ -Abdominal pain Acute, or Chronic, or Acute on Chronic? @ -Acute Uncomplicated (without systemic symptoms) or Complicated (systemic symptoms)? @ -Uncomplicated Side effects of treatment? @ -None Exacerbation, Progression, or Severe Exacerbation] @ -Not applicable Poses a threat to life or bodily function? @ -No Return precautions reviewed in depth, the patient is instructed to return to the emergency department with any new, worsening, or concerning symptoms. Patient verbalized understanding. This case was discussed in detail with the attending ED physician, Dr. Izaguirre. Presentation, findings, and treatment plan discussed in detail as well. - Lab Data Result diagrams: 03/19/24 17:55 03/19/24 17:55 Lab Results 03/19/24 03/19/24 03/19/24 Range/Units 17:55 17:55 17:55 WBC 9.4 (3.8-10.6) k/uL RBC 4.16 L (4.30-5.90) m/uL Hgb 11.1 L (13.0-17.5) gm/dL Hct 35.0 L (39.0-53.0) % MCV 84.1 D (80.0-100.0) fL MCH 26.7 (25.0-35.0) pg MCHC 31.7 (31.0-37.0) g/dL RDW 15.9 H (11.5-15.5) % Plt Count 370 (150-450) k/uL MPV 9.1 Neutrophils % 49 % Lymphocytes % 21 % Monocytes % 10 % Eosinophils % 17 % Basophils % 1 % Neutrophils # 4.6 (1.3-7.7) k/uL Lymphocytes # 1.9 (1.0-4.8) k/uL Monocytes # 1.0 (0-1.0) k/uL Eosinophils # 1.6 H (0-0.7) k/uL Basophils # 0.1 (0-0.2) k/uL Sodium 135 L (137-145) mmol/L Potassium 4.2 (3.5-5.1) mmol/L Chloride 107 (98-107) mmol/L Carbon Dioxide 25 (22-30) mmol/L Anion Gap 3 mmol/L BUN 40 H (9-20) mg/dL Creatinine 1.32 H (0.66-1.25) mg/dL Est GFR (CKD-EPI)AfAm 58 (>60 ml/min/1.73 sqM) Est GFR (CKD-EPI)NonAf 50 (>60 ml/min/1.73 sqM) Glucose 89 (74-99) mg/dL Plasma Lactic Acid Nathan 0.6 L (0.7-2.0) mmol/L Calcium 9.3 (8.4-10.2) mg/dL Total Bilirubin 0.4 (0.2-1.3) mg/dL AST 23 (17-59) U/L ALT 14 (4-49) U/L Alkaline Phosphatase 75 (38-126) U/L Troponin I (0.000-0.034) ng/mL Total Protein 5.2 L (6.3-8.2) g/dL Albumin 3.0 L (3.5-5.0) g/dL Amylase 61 (30-110) U/L Lipase 150 (23-300) U/L Urine Color Urine Appearance (Clear) Urine pH (5.0-8.0) Ur Specific [place] (1.001-1.035) Urine Protein (Negative) Urine Glucose (UA) (Negative) Urine Ketones (Negative) Urine Blood (Negative) Urine Nitrite (Negative) Urine Bilirubin (Negative) Urine Urobilinogen (<2.0) mg/dL Ur Leukocyte Esterase (Negative) 03/19/24 03/19/24 Range/Units 17:55 17:55 WBC (3.8-10.6) k/uL RBC (4.30-5.90) m/uL Hgb (13.0-17.5) gm/dL Hct (39.0-53.0) % MCV (80.0-100.0) fL MCH (25.0-35.0) pg MCHC (31.0-37.0) g/dL RDW (11.5-15.5) % Plt Count (150-450) k/uL MPV Neutrophils % % Lymphocytes % % Monocytes % % Eosinophils % % Basophils % % Neutrophils # (1.3-7.7) k/uL Lymphocytes # (1.0-4.8) k/uL Monocytes # (0-1.0) k/uL Eosinophils # (0-0.7) k/uL Basophils # (0-0.2) k/uL Sodium (137-145) mmol/L Potassium (3.5-5.1) mmol/L Chloride (98-107) mmol/L Carbon Dioxide (22-30) mmol/L Anion Gap mmol/L BUN (9-20) mg/dL Creatinine (0.66-1.25) mg/dL Est GFR (CKD-EPI)AfAm (>60 ml/min/1.73 sqM) Est GFR (CKD-EPI)NonAf (>60 ml/min/1.73 sqM) Glucose (74-99) mg/dL Plasma Lactic Acid Nathan (0.7-2.0) mmol/L Calcium (8.4-10.2) mg/dL Total Bilirubin (0.2-1.3) mg/dL AST (17-59) U/L ALT (4-49) U/L Alkaline Phosphatase (38-126) U/L Troponin I <0.012 (0.000-0.034) ng/mL Total Protein (6.3-8.2) g/dL Albumin (3.5-5.0) g/dL Amylase (30-110) U/L Lipase (23-300) U/L Urine Color Light Yellow Urine Appearance Clear (Clear) Urine pH 5.5 (5.0-8.0) Ur Specific [place] 1.020 (1.001-1.035) Urine Protein Negative (Negative) Urine Glucose (UA) Negative (Negative) Urine Ketones Negative (Negative) Urine Blood Negative (Negative) Urine Nitrite Negative (Negative) Urine Bilirubin Negative (Negative) Urine Urobilinogen <2.0 (<2.0) mg/dL Ur Leukocyte Esterase Negative (Negative) - Radiology Data Radiology results: report reviewed, image reviewed Disposition Clinical Impression: Abdominal pain Disposition: HOME SELF-CARE Instructions (If sedation given, give patient instructions): Abdominal Pain (ED) Additional Instructions: Return to the emergency department with any new, worsening, or concerning sympto ms. Take Tylenol as needed for pain relief. You can take the Zofran up to every 8 hours as needed for nausea and vomiting. Follow up with your primary care provider in 1-2 days. Prescriptions: Ondansetron Odt [Zofran Odt] 4 mg PO Q8HR PRN #15 tab PRN Reason: Nausea And Vomiting Is patient prescribed a controlled substance at d/c from ED?: No Referrals: Derrell Cordova DO [Primary Care Provider] - 1-2 days Time of Disposition: 19:08
[2024-03-19 18:04] LABS: Basophils # (A) 0.1 k/uL (0-0.2); Basophils % (A) 1 %; Eosinophils # (A) 1.6 k/uL (0-0.7); Eosinophils % (A) 17 %; HGB 11.1 gm/dL (13.0-17.5); Lymphocytes # (A) 1.9 k/uL (1.0-4.8); Lymphocytes % (A) 21 %; MCH 26.7 pg (25.0-35.0); MCHC 31.7 g/dL (31.0-37.0); Mean Platelet Volume 9.1; Monocytes % (A) 10 %; Neutrophils # (A) 4.6 k/uL (1.3-7.7); Neutrophils % (A) 49 %; Platelet Count 370 k/uL (150-450); RBC 4.16 m/uL (4.30-5.90); RDW 15.9 % (11.5-15.5); WBC 9.4 k/uL (3.8-10.6)
[2024-03-19 18:19] LABS: ALT 14 U/L (4-49); AST 23 U/L (17-59); African American GFR (CKD) 58 (>60 ml/min/1.73 sqM); Alkaline Phosphatase 75 U/L (38-126); Amylase 61 U/L (30-110); Anion Gap 3 mmol/L; Blood Urea Nitrogen 40 mg/dL (9-20); Calcium 9.3 mg/dL (8.4-10.2); Carbon Dioxide 25 mmol/L (22-30); Chloride 107 mmol/L (98-107); Glucose 89 mg/dL (74-99); Lipase 150 U/L (23-300); Non-African American GFR(CKD) 50 (>60 ml/min/1.73 sqM); Potassium 4.2 mmol/L (3.5-5.1); Sodium 135 mmol/L (137-145); Total Bilirubin 0.4 mg/dL (0.2-1.3); Total Protein 5.2 g/dL (6.3-8.2)
[2024-03-19 18:21] LABS: MCV 84.1 fL (80.0-100.0)
[2024-03-19 18:44] LABS: Appearance,Urine Clear (Clear); Bilirubin,Urine Negative (Negative); Blood,Urine Negative (Negative); Color,Urine Light Yellow; Glucose,Urine (UA) Negative (Negative); Ketones,Urine Negative (Negative); Leukocyte Esterase,Urine Negative (Negative); Nitrite,Urine Negative (Negative); PH, Urine 5.5 (5.0-8.0); Protein,Urine Negative (Negative); Urobilinogen,Urine <2.0 mg/dL (<2.0)
--- NOTE | 2024-03-19 18:49 | US ---
EXAMINATION TYPE: US gallbladder DATE OF EXAM: 03/19/2024 COMPARISON: Kidney ultrasound 07/26/2022 CLINICAL INDICATION: Male, 83 years old with history of Upper abdominal pain; Patient states abdomina l pain for a month. Patient states he no longer has his left kidney. Patient states that he ate about a half hour ago. TECHNIQUE: Multiple sonographic images of the right upper quadrant are obtained. FINDINGS: EXAM MEASUREMENTS: Liver Length: 11.3 cm Gallbladder Wall: 0.2 cm CBD: 0.6 cm Right Kidney: 10.1 x 6.3 x 5.7 cm EMERGENCY DEPARTMENT TECHNICIAN NOTES:Slightly limited due to overlying bowel gas Pancreas: Visualized portions appear WNL. Pancreatic duct seen, measures 2mm., Within normal limits Liver: wnl as best seen today Gallbladder: Slightly contracted, difficult to fully examine. Evidence for sonographic Schaeffer's sign: No CBD: Upper limits, normal for patient's age. Right Kidney: There is a 6.2 x 3.0 x 3.7cm anechoic area seen centrally at the mid to lower pole lucio drew 3.6 cm back in 2021. No calyceal dilatation to suggest hydronephrosis. IMPRESSION: 1. No gallstones or biliary ductal dilatation. 2. Centrally located parapelvic cyst of the right kidney has enlarged from 2021 currently measuring 6 .2 cm versus 3.6 cm, previously.
[2024-03-19 19:33] VITALS: BP 114/65; PULSE 73
== END 2024-03-19 19:30 | disposition home or self-care (01) ==
LOC: EC 17:21
DX: N28.1 Cyst of kidney, acquired (principal); F12.90 Cannabis use, unspecified, uncomplicated; Z88.8 Allergy status to other drugs, medicaments and biological substances; Z87.891 Personal history of nicotine dependence
CPT/HCPCS: 36415; 76705; 80053; 81003; 82150; 83605; 83690; 84484; 85025; 93005; 99284

== ENCOUNTER 2024-03-30 20:57 | Emergency (ER) | payer OTHER, MEDICARE ==
[2024-03-30 21:01] VITALS: RESP 16
[2024-03-30 21:45] LABS: Anisocytosis Slight; Basophils % (A) 0 %; Eosinophils # (A) 1.1 k/uL (0-0.7); Eosinophils % (A) 13 %; HCT 33.4 % (39.0-53.0); HGB 10.5 gm/dL (13.0-17.5); Lymphocytes # (A) 1.7 k/uL (1.0-4.8); Lymphocytes % (A) 20 %; MCH 26.7 pg (25.0-35.0); MCHC 31.4 g/dL (31.0-37.0); Mean Platelet Volume 8.6; Monocytes # (A) 0.9 k/uL (0-1.0); Monocytes % (A) 10 %; Neutrophils # (A) 4.5 k/uL (1.3-7.7); Neutrophils % (A) 54 %; Platelet Count 382 k/uL (150-450); RBC 3.93 m/uL (4.30-5.90); RDW 16.8 % (11.5-15.5); WBC 8.4 k/uL (3.8-10.6)
--- NOTE | 2024-03-30 21:52 | ED ---
General Adult HPI - General Chief complaint: GI Bleed Stated complaint: Blood in stool Time Seen by Provider: 03/30/24 21:04 Source: patient Mode of arrival: ambulatory Limitations: no limitations - History of Present Illness Initial comments: Dictation was produced using [employer] dictation software. please excuse any grammatical, word or spelling errors. Chief Complaint: 83-year-old male with prior blood per rectum History of Present Illness: Patient 83-year-old male states for the last 3 to 4 days she has been having some bright red blood per rectum. Patient complaining of lower abdominal pain. Denies any fever, chills. Patient has no night s weats. Denies any anticoagulation medications. Patient denies any history of GI bleed. Denies any lightheadedness. The ROS documented in this emergency department record has been reviewed and con firmed by me. Those systems with pertinent positive or negative responses have been documented in the HPI. All other systems are other negative and/or noncontributory. - Related Data Home Medications Medication Instructions Recorded Confirmed Tamsulosin HCl [Flomax] 0.4 mg PO HS 10/12/17 01/16/24 amLODIPine [Norvasc] 5 mg PO HS 05/25/23 01/16/24 Aspirin 81 mg PO HS 01/16/24 01/16/24 Clopidogrel [Plavix] 75 mg PO HS 01/16/24 01/16/24 Famotidine [Pepcid] 20 mg PO BID 01/16/24 01/16/24 Ferrous Sulfate [Iron (65 MG 325 mg PO HS 01/16/24 01/16/24 Elemental)] Rosuvastatin [Crestor] 20 mg PO HS 01/16/24 01/16/24 Previous Rx's Medication Instructions Recorded Ondansetron Odt [Zofran Odt] 4 mg PO Q8HR PRN #15 tab 03/19/24 Allergies Allergy/AdvReac Type Severity Reaction Status Date / Time atorvastatin calcium AdvReac JOINT PAIN Verified 03/30/24 21:01 [From Lipitor] clindamycin AdvReac JOINT PAIN Verified 03/30/24 21:01 Review of Systems ROS Statement: Those systems with pertinent positive or pertinent negative responses have been documented in the HPI. ROS Other: All systems not noted in ROS Statement are negative. Past Medical History Past Medical History: Coronary Artery Disease (CAD), Cancer, Chest Pain / Angina, GERD/Reflux, Hyperlipidemia, Hypertension, Myocardial Infarction ([place]), Osteoarthritis (OA), Prostate Disorder, Renal Disease Additional Past Medical History / Comment(s): Recent upper respiratory tract infection, L renal cancer with nephrectomy/mets L lung and sternum/no longer taking oral chemo d/t it was affecting his kidney/states he receives infusion once a month but does not know what type of infusion last dose was 10/09/23, chronic renal failure stage IV, BPH, newsome's esophagus, gastritis, dry mouth, chronic low back pain, arthritis R great toe. Last Myocardial Infarction Date:: 02/29/20 History of Any Multi-Drug Resistant Organisms: None Reported Past Surgical History: Heart Catheterization, Orthopedic Surgery Additional Past Surgical History / Comment(s): Left nephrectomy 2015, RT HAND 2ND DIGIT LOST TOP OF FINGER IN CRUSHING INJURY, EGDs, colonoscopy, bilateral c ataract removals/lens implants. Past Anesthesia/Blood Transfusion Reactions: No Reported Reaction Past Psychological History: Depression Smoking Status: Former smoker Past Alcohol Use History: Rare Past Drug Use History: Marijuana - Past Family History Father Family Medical History: Cancer, Hypertension, Myocardial Infarction ([place]) Additional Family Medical History / Comment(s): SKIN CANCER Mother Family Medical History: Cancer Additional Family Medical History / Comment(s): breast cancer - throat cancer Sister(s) Family Medical History: Cancer Additional Family Medical History / Comment(s): skin/breast and throat cancer General Exam - General Exam Comments Initial Comments: PHYSICAL EXAM: General Impression: Alert and oriented x3, not in acute distress HEENT: Normocephalic atraumatic, extra-ocular movements intact, pupils equal and reactive to light bilaterally, mucous membranes moist. Cardiovascular: Heart regular rate and rhythm Chest: Able to complete full sentences, no retractions, no tachypnea Abdomen: abdomen soft, non-tender, non-distended, no organomegaly Musculoskeletal: Pulses present and equal in all extremities, no peripheral edema Motor: no focal deficits noted Neurological: CN II-XII grossly intact, no focal motor or sensory deficits noted Skin: Intact with no visualized rashes Psych: Normal affect and mood Rectal exam: No gross blood Limitations: no limitations Course Vital Signs 03/30/24 03/30/24 20:58 23:01 Temperature 97.7 F 97.9 F Pulse Rate 81 74 Respiratory 16 16 Rate Blood Pressure 99/60 105/58 O2 Sat by Pulse 97 97 Oximetry Medical Decision Making - Medical Decision Making Was pt. sent in by a medical professional or institution (, [facility], [facility], urgent care, hospital, or care home...) When possible be specific @ -No Did you speak to anyone other than the patient for history (EMS, parent, family, police, friend...)? What history was obtained from this source @ -No Did you review nursing and triage notes (agree or disagree)? Why? @ -I reviewed and agree with nursing and triage notes Were old charts reviewed (outside hosp., previous admission, EMS record, old EKG, old radiological studies, urgent care reports/EKG's, care home records)? Report findings @ -No old charts were reviewed Differential Diagnosis (chest pain, altered mental status, abdominal pain women, abdominal pain men, vaginal bleeding, musculoskeletal, weakness, fever, dyspnea, syncope, headache, dizziness, GI bleed, back pain, seizure, CVA, palpatations, mental health)? @ -Differential GI Bleed: Esophageal varices, aortoenteric fistula, Shannen-Sanabria, gastritis, peptic ulcer disease, diverticulosis, inflammatory bowel disease, hemorrhoids, fissure, colitis, malignancy, Meckels diverticulum, this is not meant to be an all- inclusive list. EKG interpreted by me (3pts min.). @ -None done X-rays interpreted by me (1pt min.). @ -None done CT interpreted by me (1pt min.). @ -CT scans of the abdomen pelvis shows no acute processes U/S interpreted by me (1pt. min.). @ -None done What testing was considered but not performed or refused? (CT, X-rays, U/S, labs)? Why? @ -None What meds were considered but not given or refused? Why? @ -None Was smoking cessation discussed for >3mins.? @ -No Were there social determinants of health that impacted care today? How? (Homelessness, low income, unemployed, alcoholism, drug addiction, transportation, low edu. Level, literacy, decrease access to med. care, long term, rehab)? @ -No Was there de-escalation of care discussed even if they declined (Discuss DNR or withdrawal of care, Hospice)? DNR status @ -No What co-morbidities impacted this encounter? (DM, HTN, Smoking, COPD, CAD, Cancer, CVA, ARF, Chemo, Hep., AIDS, mental health diagnosis, sleep apnea, morbid obesity)? @ -None Was patient admitted / discharged? Hospital course, mention meds given and route, prescriptions, significant lab abnormalities, going to OR and other pertinent info. @ -83-year-old male presents emergency department with concerns of red blood blood per rectum. Vital signs are stable. Patient well-appearing at the bedside. He did complain of some lower abdominal pain. Laboratory evaluation obtained. Hemoglobin stable at 10.5 which is slightly on the lower end of his usual baseline. Metabolic panel is within acceptable limits. Stool occult blood is negative. Patient did have some of still a fever with what he describes as blood on it. This has been exposed to air for several hours and still maintains red appears that it is likely the skin of some sort of fruit or vegetable flash. States that he has been eating being cherries recently. Likely this is what send his stool. Patient discharged advised follow-up with primary care doctor. Did you discuss the management of the patient with other professionals (professionals i.e. , PA, BAND TIER, lab, RT, psych nurse, social work msw, computer systems auditor, teacher, occupational health and safety officer, manager of case management)? Give summary @ -No Was critical care preformed (if so, how long)? @ -No Undiagnosed new problem with uncertain prognosis? @ -No Drug Therapy requiring intensive monitoring for toxicity (Heparin, Nitro, Insulin, Cardizem)? @ -No Were any procedures done? @ -No Diagnosis/symptom? Acute, or Chronic, or Acute on Chronic? Uncomplicated (without systemic symptoms) or Complicated (systemic symptoms)? @ -Bright red blood per rectum Side effects of treatment? @ -No Exacerbation, Progression, or Severe Exacerbation? @ -No Poses a threat to life or bodily function? How? (Chest pain, [place], [place], pneumonia, PE, COPD, DKA, ARF, appy, cholecystitis, CVA, Diverticulitis, Homicidal, Suicidal, threat to staff... and all critical care pts) @ -No - Lab Data Result diagrams: 03/30/24 21:30 03/30/24 21:30 Lab Results 07/03/30/24 03/30/24 Range/Units 21:30 21:30 21:30 WBC 8.4 (3.8-10.6) k/uL RBC 3.93 L (4.30-5.90) m/uL Hgb 10.5 L (13.0-17.5) gm/dL Hct 33.4 L (39.0-53.0) % MCV 85.0 (80.0-100.0) fL MCH 26.7 (25.0-35.0) pg MCHC 31.4 (31.0-37.0) g/dL RDW 16.8 H (11.5-15.5) % Plt Count 382 (150-450) k/uL MPV 8.6 Neutrophils % 54 % Lymphocytes % 20 % Monocytes % 10 % Eosinophils % 13 % Basophils % 0 % Neutrophils # 4.5 (1.3-7.7) k/uL Lymphocytes # 1.7 (1.0-4.8) k/uL Monocytes # 0.9 (0-1.0) k/uL Eosinophils # 1.1 H (0-0.7) k/uL Basophils # 0.0 (0-0.2) k/uL Anisocytosis Slight Sodium 135 L (137-145) mmol/L Potassium 3.9 (3.5-5.1) mmol/L Chloride 106 (98-107) mmol/L Carbon Dioxide 20 L (22-30) mmol/L Anion Gap 9 mmol/L BUN 29 H (9-20) mg/dL Creatinine 1.68 H (0.66-1.25) mg/dL Est GFR (CKD-EPI)AfAm 43 (>60 ml/min/1.73 sqM) Est GFR (CKD-EPI)NonAf 37 (>60 ml/min/1.73 sqM) Glucose 96 (74-99) mg/dL Calcium 8.8 (8.4-10.2) mg/dL Total Bilirubin 0.3 (0.2-1.3) mg/dL AST 23 (17-59) U/L ALT 13 (4-49) U/L Alkaline Phosphatase 79 (38-126) U/L Total Protein 5.4 L (6.3-8.2) g/dL Albumin 3.2 L (3.5-5.0) g/dL Stool Occult Blood (Negative) Blood Type O Positive Blood Type Confirm Blood Type Recheck No Previous Record Bld Type Recheck Status CABO Indicated Antibody Screen NEGATIVE Spec Expiration Date 04/02/2024 - 232903/30/24 03/30/24 Range/Units 21:32 22:09 WBC (3.8-10.6) k/uL RBC (4.30-5.90) m/uL Hgb (13.0-17.5) gm/dL Hct (39.0-53.0) % MCV (80.0-100.0) fL MCH (25.0-35.0) pg MCHC (31.0-37.0) g/dL RDW (11.5-15.5) % Plt Count (150-450) k/uL MPV Neutrophils % % Lymphocytes % % Monocytes % % Eosinophils % % Basophils % % Neutrophils # (1.3-7.7) k/uL Lymphocytes # (1.0-4.8) k/uL Monocytes # (0-1.0) k/uL Eosinophils # (0-0.7) k/uL Basophils # (0-0.2) k/uL Anisocytosis Sodium (137-145) mmol/L Potassium (3.5-5.1) mmol/L Chloride (98-107) mmol/L Carbon Dioxide (22-30) mmol/L Anion Gap mmol/L BUN (9-20) mg/dL Creatinine (0.66-1.25) mg/dL Est GFR (CKD-EPI)AfAm (>60 ml/min/1.73 sqM) Est GFR (CKD-EPI)NonAf (>60 ml/min/1.73 sqM) Glucose (74-99) mg/dL Calcium (8.4-10.2) mg/dL Total Bilirubin (0.2-1.3) mg/dL AST (17-59) U/L ALT (4-49) U/L Alkaline Phosphatase (38-126) U/L Total Protein (6.3-8.2) g/dL Albumin (3.5-5.0) g/dL Stool Occult Blood Negative (Negative) Blood Type Blood Type Confirm O Positive Blood Type Recheck Bld Type Recheck Status Antibody Screen Spec Expiration Date Disposition Clinical Impression: BRBPR (bright red blood per rectum) Disposition: HOME SELF-CARE Condition: Good Instructions (If sedation given, give patient instructions): Gastrointestinal Bleeding (ED) Is patient prescribed a controlled substance at d/c from ED?: No Referrals: [facility],Clinic [Primary Care Provider] - 1-2 days Time of Disposition: 01:32
[2024-03-30 22:06] LABS: ALT 13 U/L (4-49); AST 23 U/L (17-59); African American GFR (CKD) 43 (>60 ml/min/1.73 sqM); Albumin 3.2 g/dL (3.5-5.0); Alkaline Phosphatase 79 U/L (38-126); Anion Gap 9 mmol/L; Blood Urea Nitrogen 29 mg/dL (9-20); Calcium 8.8 mg/dL (8.4-10.2); Carbon Dioxide 20 mmol/L (22-30); Chloride 106 mmol/L (98-107); Glucose 96 mg/dL (74-99); Non-African American GFR(CKD) 37 (>60 ml/min/1.73 sqM); Potassium 3.9 mmol/L (3.5-5.1); Sodium 135 mmol/L (137-145); Total Bilirubin 0.3 mg/dL (0.2-1.3); Total Protein 5.4 g/dL (6.3-8.2)
[2024-03-30] MEDS: SODIUM CHLORIDE 0.9% 1,000 ML IV ONE (23:00)
[2024-03-31 00:25] VITALS: TEMP 97.9
--- NOTE | 2024-03-31 00:54 | CT ---
EXAM: CT Abdomen and Pelvis With Intravenous Contrast CLINICAL HISTORY: ITS.REASON CT Reason: abdominal pain, gi bleed TECHNIQUE: Axial computed tomography images of the abdomen and pelvis with intravenous contrast. CTDI is 57.4 mGy and DLP is 907.5 mGy-cm. This CT exam was performed using one or more of the following dose reduction techniques: automated exposure control, adjustment of the mA and/or kV according to patient size, and/or use of iterative reconstruction technique. COMPARISON: No relevant prior studies available. FINDINGS: Lung bases: Unremarkable. No mass. No consolidation. ABDOMEN: Liver: Unremarkable. No mass. Gallbladder and bile ducts: Unremarkable. No calcified stones. No ductal dilation. Pancreas: Unremarkable. No mass. No ductal dilation. Spleen: Unremarkable. No splenomegaly. Adrenals: Unremarkable. No mass. Kidneys and ureters: LEFT nephrectomy. RIGHT parapelvic cyst measures approximately 3.5 cm. Stomach and bowel: Diverticulosis, without acute diverticulitis. No small bowel obstruction. No free intraperitoneal air. PELVIS: Appendix: No findings to suggest acute appendicitis. Bladder: Unremarkable. No mass. Reproductive: Enlarged prostate gland, measures 6.1 cm. ABDOMEN and PELVIS: Intraperitoneal space: Unremarkable. No free air. No significant fluid collection. Bones/joints: Degenerative changes of the spine. No acute fracture. No dislocation. Soft tissues: Unremarkable. Vasculature: Atherosclerotic changes of the aorta. No abdominal aortic aneurysm. Lymph nodes: Unremarkable. No enlarged lymph nodes. IMPRESSION: 1. Enlarged prostate gland, measures 6.1 cm. 2. LEFT nephrectomy. 3. Diverticulosis, without acute diverticulitis. No small bowel obstruction. No free intraperitoneal air.
[2024-03-31 02:00] VITALS: BP 118/67; PULSE 70
== END 2024-03-31 02:09 | disposition home or self-care (01) ==
LOC: EC 20:57
DX: K92.2 Gastrointestinal hemorrhage, unspecified (principal); Z88.1 Allergy status to other antibiotic agents; Z88.8 Allergy status to other drugs, medicaments and biological substances; Z87.891 Personal history of nicotine dependence
CPT/HCPCS: 36415; 86900; 86901; 80053; 85025; 86850; 82272; 74177; 99285; 96360; Q9967

== ENCOUNTER 2024-09-08 17:08 | Observation (INO) | payer MEDICARE, OTHER ==
[2024-09-08 18:10] LABS: Basophils # (A) 0.1 k/uL (0-0.2); Basophils % (A) 1 %; Eosinophils # (A) 1.5 k/uL (0-0.7); Eosinophils % (A) 13 %; HCT 36.6 % (39.0-53.0); HGB 11.9 gm/dL (13.0-17.5); Lymphocytes # (A) 1.4 k/uL (1.0-4.8); Lymphocytes % (A) 12 %; MCHC 32.4 g/dL (31.0-37.0); MCV 86.6 fL (80.0-100.0); Mean Platelet Volume 8.7; Monocytes # (A) 0.9 k/uL (0-1.0); Monocytes % (A) 8 %; Neutrophils # (A) 6.9 k/uL (1.3-7.7); Neutrophils % (A) 63 %; Platelet Count 362 k/uL (150-450); RBC 4.23 m/uL (4.30-5.90); RDW 15.9 % (11.5-15.5)
[2024-09-08 18:18] LABS: INR 0.9 (<1.2); Partial Thromboplastin Time 24.6 sec (22.0-30.0); Prothrombin Time 10.5 sec (10.0-12.5)
[2024-09-08 18:20] LABS: ALT 13 U/L (4-49); AST 19 U/L (17-59); African American GFR (CKD) 63 (>60 ml/min/1.73 sqM); Albumin 3.9 g/dL (3.5-5.0); Alkaline Phosphatase 68 U/L (38-126); Anion Gap 7 mmol/L; Blood Urea Nitrogen 43 mg/dL (9-20); Carbon Dioxide 24 mmol/L (22-30); Chloride 105 mmol/L (98-107); Glucose 88 mg/dL (74-99); Lipase 130 U/L (23-300); Non-African American GFR(CKD) 54 (>60 ml/min/1.73 sqM); Potassium 4.2 mmol/L (3.5-5.1); Sodium 136 mmol/L (137-145); Total Bilirubin 0.3 mg/dL (0.2-1.3); Total Protein 6.2 g/dL (6.3-8.2)
[2024-09-08 18:28] LABS: NT-Pro-B-Type Natriuretic Pept 87 pg/mL
--- NOTE | 2024-09-08 18:41 | ED ---
Chest Pain HPI - General Chief Complaint: Chest Pain Stated Complaint: chest pain Time Seen by Provider: 09/08/24 17:20 Source: patient Mode of arrival: ambulatory Limitations: no limitations - History of Present Illness Initial Comments: 83-year-old male with past medical history of hypertension, hyperlipidemia, [place], renal cancer s/p nephrectomy on active chemotherapy who presents to the emergency department who presents to the emergency department with chest pain. States that his chest pain started today. Located over the left side of his chest. States that sharp in nature and has been constant. He denies history of coronary stents. He did not take anything for the pain before coming in. He denies fevers, chills or cough. Denies shortness of breath. No calf pain or swelling. No peripheral edema. No abdominal pain. No other alleviating, precipitating or modifying factors - Related Data Home Medications Medication Instructions Recorded Confirmed Tamsulosin HCl [Flomax] 0.4 mg PO HS 10/12/17 09/08/24 amLODIPine [Norvasc] 5 mg PO BID 05/25/23 09/08/24 Aspirin 81 mg PO HS 01/16/24 09/08/24 Rosuvastatin Calcium [Crestor] 20 mg PO HS 09/08/24 09/08/24 Allergies Allergy/AdvReac Type Severity Reaction Status Date / Time atorvastatin calcium AdvReac JOINT PAIN Verified 09/08/24 18:23 [From Lipitor] clindamycin AdvReac JOINT PAIN Verified 09/08/24 18:23 Review of Systems ROS Statement: Those systems with pertinent positive or pertinent negative responses have been documented in the HPI. ROS Other: All systems not noted in ROS Statement are negative. Past Medical History Past Medical History: Coronary Artery Disease (CAD), Cancer, Chest Pain / Angina, GERD/Reflux, Hyperlipidemia, Hypertension, Myocardial Infarction ([place]), Osteoarthritis (OA), Prostate Disorder, Renal Disease Additional Past Medical History / Comment(s): Recent upper respiratory tract infection, L renal cancer with nephrectomy/mets L lung and sternum/no longer taking oral chemo d/t it was affecting his kidney/states he receives infusion once a month but does not know what type of infusion last dose was 10/09/23, chronic renal failure stage IV, BPH, newsome's esophagus, gastritis, dry mouth, chronic low back pain, arthritis R great toe. Last Myocardial Infarction Date:: 02/29/20 History of Any Multi-Drug Resistant Organisms: None Reported Past Surgical History: Heart Catheterization, Orthopedic Surgery Additional Past Surgical History / Comment(s): Left nephrectomy 2016, RT HAND 2ND DIGIT LOST TOP OF FINGER IN CRUSHING INJURY, EGDs, colonoscopy, bilateral cataract removals/lens implants. Past Anesthesia/Blood Transfusion Reactions: No Reported Reaction Past Psychological History: Depression Smoking Status: Former smoker Past Alcohol Use History: Rare Past Drug Use History: Marijuana - Past Family History Father Family Medical History: Cancer, Hypertension, Myocardial Infarction ([place]) Additional Family Medical History / Comment(s): SKIN CANCER Mother Family Medical History: Cancer Additional Family Medical History / Comment(s): breast cancer - throat cancer Sister(s) Family Medical History: Cancer Additional Family Medical History / Comment(s): skin/breast and throat cancer General Exam Limitations: no limitations General appearance: alert, in no apparent distress Head exam: Present: atraumatic, normocephalic, normal inspection Eye exam: Present: normal appearance, PERRL, EOMI. Absent: scleral icterus, conjunctival injection, periorbital swelling ENT exam: Present: normal exam, mucous membranes moist Neck exam: Present: normal inspection. Absent: tenderness, meningismus, lymphadenopathy Respiratory exam: Present: normal lung sounds bilaterally. Absent: respiratory distress, wheezes, rales, rhonchi, stridor Cardiovascular Exam: Present: regular rate, normal rhythm, normal heart sounds. Absent: systolic murmur, diastolic murmur, rubs, gallop, clicks GI/Abdominal exam: Present: soft, normal bowel sounds. Absent: distended, tenderness, guarding, rebound, rigid Extremities exam: Present: normal inspection, full ROM, normal capillary refill. Absent: tenderness, pedal edema, joint swelling, calf tenderness Back exam: Present: normal inspection Neurological exam: Present: alert, oriented X3, CN II-XII intact Psychiatric exam: Present: normal affect, normal mood Skin exam: Present: warm, dry, intact, normal color. Absent: rash Course Vital Signs 09/08/24 09/08/24 09/08/24 17:17 19:37 20:44 Temperature 97.5 F L 97.6 F 98.8 F Pulse Rate 77 74 78 Respiratory 18 16 16 Rate Blood Pressure 141/74 133/82 137/78 O2 Sat by Pulse 99 96 96 Oximetry Chest Pain MDM - MDM Was pt. sent in by a medical professional or institution ([facility], [facility], urgent care, hospital, or [facility]...) When possible be specific @ -No Did you speak to anyone other than the patient for history (EMS, parent, family, police, friend...)? What history was obtained from this source @ -Spoke with for history Did you review nursing and triage notes (agree or disagree)? Why? @ -I reviewed and agree with nursing and triage notes Were old charts reviewed (outside hosp., previous admission, EMS record, old EKG, old radiological studies, urgent care reports/EKG's, [facility] records)? Report findings @ -I reviewed patient's heart cath from February 2020 Differential Diagnosis (chest pain, altered mental status, abdominal pain women, abdominal pain men, vaginal bleeding, weakness, fever, dyspnea, syncope, headache, dizziness, GI bleed, back pain, seizure, CVA, palpatations, mental health, musculoskeletal)? @ -Differential Chest Pain: Stable Angina, Unstable Angina, STEMI, NSTEMI Aortic Dissection, Pneumothorax, Musculoskeletal, Esophageal Spasm GERD, Cholecystitis, Pancreatitis, Zoster, this is not meant to be an all-inclusive list. EKG interpreted by me (3pts min.). @ -Yes and demonstrates sinus rhythm with a rate of 76. VA interval 200. QRS 90. QTc of 410. No acute ST segment elevations or depressions X-rays interpreted by me (1pt min.). @ -Yes which demonstrates no acute process CT interpreted by me (1pt min.). @ -None done U/S interpreted by me (1pt. min.). @ -None done What testing was considered but not performed or refused? (CT, X-rays, U/S, labs )? Why? @ -None What meds were considered but not given or refused? Why? @ -Pain medications were not originally ordered as patient was refusing them. He reports to taking an aspirin today already Did you discuss the management of the patient with other professionals (professionals i.e. [facility], [employer]ANCE [employer] HAND FILER, lab, RT, psych nurse, social services coordinator, dewaxer, teacher, botanical technical officer, casework manager)? Give summary @ -Spoke with Dr. Huynh for admission Was smoking cessation discussed for >3mins.? @ -No Was critical care preformed (if so, how long)? @ -No Were there social determinants of health that impacted care today? How? (Homelessness, low income, unemployed, alcoholism, drug addiction, transportation, low edu. Level, literacy, decrease access to med. care, half-way, rehab)? @ -No Was there de-escalation of care discussed even if they declined (Discuss DNR or withdrawal of care, Hospice)? DNR status @ -No What co-morbidities impacted this encounter? (DM, HTN, Smoking, COPD, CAD, Cancer, CVA, ARF, Chemo, Hep., AIDS, mental health diagnosis, sleep apnea, morbid obesity)? @ -Coronary artery disease, prostate cancer Was patient admitted / discharged? Hospital course, mention meds given and rout e, prescriptions, significant lab abnormalities, going to OR and other pertinent info. @ -Upon arrival patient seen and evaluated in bed 21. Thorough history and physical exam was performed. Patient placed on continuous pulse ox and cardiac monitoring. Twelve-lead EKG is obtained. IV is established and laboratory studies are conducted. I ordered pain medications however patient originally re fused. Chest x-ray was performed. Results were discussed with patient. Due to his history of coronary disease I did recommend admission for this patient was agreeable. Spoke with Dr. Huynh for the admission. Cardiology will be placed on consult Undiagnosed new problem with uncertain prognosis? @ -No Drug Therapy requiring intensive monitoring for toxicity (Heparin, Nitro, Insulin, Cardizem)? @ -No Were any procedures done? @ -No Diagnosis/symptom? @ -Acute chest pain, possible ACS, history of coronary disease Acute, or Chronic, or Acute on Chronic? @ -Acute Uncomplicated (without systemic symptoms) or Complicated (systemic symptoms)? @ -Complicated Side effects of treatment? @ -No Exacerbation, Progression, or Severe Exacerbation? @ -No Poses a threat to life or bodily function? How? (Chest pain, [place], [place], pneumonia, PE, COPD, DKA, ARF, appy, cholecystitis, CVA, Diverticulitis, Homicidal, Suicidal, threat to staff... and all critical care pts) @ -No Disposition Clinical Impression: Chest pain Disposition: ADMITTED IP TO THIS HOSP Condition: Stable Is patient prescribed a controlled substance at d/c from ED?: No Time of Disposition: 19:39 Decision to Admit Reason: Admit from EC Decision Date: 09/08/24 Decision Time: 19:39
--- NOTE | 2024-09-08 18:58 | XR ---
EXAMINATION TYPE: XR chest 2V DATE OF EXAM: 09/08/2024 6:23 PM COMPARISON: Chest radiographs from 01/16/2024 CLINICAL INDICATION: Male, 83 years old with history of Chest Pain; [facility] TECHNIQUE: XR chest 2V Frontal and lateral views of the chest. FINDINGS: Lungs/Pleura: There is flattening of the diaphragm with increased lucency of the lungs. No evidence o f pneumothorax, pleural effusion or focal consolidation. Pulmonary vascularity: Unremarkable. Heart/mediastinum: Cardiomediastinal silhouette is unremarkable. Musculoskeletal: No acute osseous pathology. IMPRESSION: 1. No acute cardiopulmonary disease process. 2. COPD changes. [facility], , 09/08/2024 6:56 PM
[2024-09-08] MEDS ORDERED: NALOXONE 0.4 MG/ML 1 ML VIAL IV PRN (19:39)
[2024-09-08] MEDS: MORPHINE SULFATE 4 MG/ML SYRINGE IVP STA (20:47)
--- NOTE | 2024-09-08 23:10 | P.HPIM ---
History of Present Illness H&P Date: 09/08/24 Chief Complaint: Chest pain Patient is a 83-year-old male with past medical history of coronary artery disease (status post negative stress test in December 2023 and recent echo in 10/11 with ejection fraction of 55 to 60%), GERD, hyperlipidemia, hypertension, osteoarthritis, history of left renal cancer (status post left nephrectomy in 2016) with metastasis to left lung and sternum currently receiving monthly infusion, chronic kidney disease stage 3A (GFR of 54), BPH, history of myocardial infarction (most recent 02/29/2020) and chronic low back pain presented to the emergency department with chest pain. Patient reports that the chest pain started on while he was resting/sitting down at work. He reports a constant, sharp stabbing left-sided chest pain that does not seem to get worse with walking/moving around. He does report a pressure-like sensation sometimes. Denies any alleviating/exacerbating factors. The chest pain is located over the left side of his chest. Denies any history of heart failure, coronary stents. Patient also denies fever, chills, shortness of breath, nausea, vomiting, belly pain, coughing/runny nose/sore throat, numbness or tingling sensation in the upper/lower extremity. ED documentation reviewed. In the ED patient was treated with morphine 4 mg IV x 1. Vitals on admission temperature 97.6, pulse rate 74, respiratory rate 16, blood pressure 133/82, O2 sat 96% on room air. EKG independently interpreted as sinus rhythm with ventricular rate of 76 bpm, QTc interval of 410 ms, possible right ventricular conduction delay CXR shows no acute cardiopulmonary disease process. COPD changes. Labs on admission show WBC 11,, hemoglobin 11.9, hematocrit 36.6, platelet 362, PT 10.5, PTT 24.6, INR 0.9, sodium 136, potassium 4.2, chloride 105, carbon dioxide 24, BUN 43, creatinine 1.24, glucose 88, troponin less than 0.012, BNP 87, lipase 130 Review of systems: Pertinent positives and negatives as discussed in HPI, a complete review of systems was performed and all other systems are negative. PSH: Heart catheterization, orthopedic surgery, left nephrectomy in 2016 FMH: Father had a history of hypertension and myocardial infarction, mother had a history of breast cancer and throat cancer Allergies: Atorvastatin, clindamycin Social history: Tobacco: Former smoker Alcohol: Rare alcohol use Recreational drugs: Marijuana Travel: No recent travel history Sick contacts: No recent sick contacts Physical examination: Vital signs reviewed General: nontoxic, no distress, appears at stated age Derm: warm, dry, intact Head: atraumatic, normocephalic, symmetric Eyes: EOMI, anicteric sclera Mouth: no lip lesion, mucus membranes moist Cardiovascular: S1 S2 reg, no murmur Lungs: CTA bilateral, no rhonchi, no rales, no accessory muscle use Abdominal: soft, non-tender to palpation Extremities: No cyanosis, clubbing, or pedal edema. Neuro: Alert, Gross neurological examination did not reveal any focal deficits. Cranial nerves II to XII grossly intact. Bilateral upper and lower extremity muscle strength 5 out of 5 and sensation intact. Psych: well appearing, appropriate affect Assessment/Plan: 83-year-old male with past medical history of coronary artery disease, GERD, hyperlipidemia, hypertension, osteoarthritis, prostate cancer on active chemotherapy, history of left renal cancer with metastasis to left lung and sternum, chronic kidney disease stage IV, BPH, history of myocardial infarction (most recent 02/29/2020) and chronic low back pain presented to the emergency department with chest pain that started today. Patient will be admitted to inpatient medicine service. Active: #. Chest pain with atypical features, rule out ACS EKG showed sinus rhythm with ventricular rate of 76 bpm, QTc interval of 410 ms, possible right ventricular conduction delay. Troponin less than 0.012 x 2 Trend troponin Cardiac monitoring Consult cardiology Continue home aspirin 81 mg daily Continue home rosuvastatin 20 mg daily Obtain echocardiogram #. Leukocytosis, likely secondary to acute stress WBC 11 Monitor morning CBC #. Hyponatremia Sodium 136 Monitor morning CMP Chronic: #. Hyperlipidemia Continue home rosuvastatin 20 mg daily #. Hypertension Continue home amlodipine 5 mg p.o. twice daily #. Benign prostatic hyperplasia Continue home Flomax 0.4 mg daily F: No restrictions E: Replete as needed N: Heart healthy diet A: Ambulatory DVT prophylaxis: Lovenox 40 mg subcu daily as patient's estimated creatinine clearance is 38 mL /min The patient is admitted with an anticipated less than 2 midnight stay for evaluation of chest pain CODE STATUS: Full code Discussed with: Patient Anticipated discharge place: Home I have seen and evaluated the patient today. I Discussed the case with the resident and agree with the resident's findings I edited the assessment and plan as necessary as documented in the resident's note. Past Medical History Past Medical History: Coronary Artery Disease (CAD), Cancer, Chest Pain / Angina , GERD/Reflux, Hyperlipidemia, Hypertension, Myocardial Infarction ([place]), Osteoarthritis (OA), Prostate Disorder, Renal Disease Additional Past Medical History / Comment(s): L renal cancer with nephrectomy/mets L lung and sternum, chronic renal failure stage IV, BPH, newsome's esophagus, gastritis, dry mouth, chronic low back pain, arthritis R great toe. Last Myocardial Infarction Date:: 02/29/20 History of Any Multi-Drug Resistant Organisms: None Reported Past Surgical History: Heart Catheterization, Orthopedic Surgery Additional Past Surgical History / Comment(s): Left nephrectomy 2015, RT HAND 2ND DIGIT LOST TOP OF FINGER IN CRUSHING INJURY, EGDs, colonoscopy, bilateral cataract removals/lens implants. Past Anesthesia/Blood Transfusion Reactions: No Reported Reaction Past Psychological History: Depression Smoking Status: Former smoker Past Alcohol Use History: Rare Past Drug Use History: Marijuana - Past Family History Father Family Medical History: Cancer, Hypertension, Myocardial Infarction ([place]) Additional Family Medical History / Comment(s): SKIN CANCER Mother Family Medical History: Cancer Additional Family Medical History / Comment(s): breast cancer - throat cancer Sister(s) Family Medical History: Cancer Additional Family Medical History / Comment(s): skin/breast and throat cancer Medications and Allergies Home Medications Medication Instructions Recorded Confirmed Type Tamsulosin HCl [Flomax] 0.4 mg PO HS 10/12/17 09/08/24 History amLODIPine [Norvasc] 5 mg PO BID 05/25/23 09/08/24 History Aspirin 81 mg PO HS 01/16/24 09/08/24 History Rosuvastatin Calcium [Crestor] 20 mg PO HS 09/08/24 09/08/24 History Allergies Allergy/AdvReac Type Severity Reaction Status Date / Time atorvastatin calcium AdvReac JOINT PAIN Verified 09/08/24 18:23 [From Lipitor] clindamycin AdvReac JOINT PAIN Verified 09/08/24 18:23 Physical Exam Vitals: Vital Signs Temp Pulse Resp BP Pulse Ox 09/08/24 19:37 97.6 F 74 16 133/82 96 09/08/24 17:17 97.5 F L 77 18 141/74 99 Intake and Output 09/08/24 09/08/24 09/08/24 06:59 14:59 22:59 Other: Weight 58.967 kg Results CBC & Chem 7: 09/08/24 18:04 09/08/24 18:04 Labs: Abnormal Lab Results - Last 24 Hours (Table) 09/08/24 09/08/24 Range/Units 18:04 18:04 WBC 11.0 H (3.8-10.6) k/uL RBC 4.23 L (4.30-5.90) m/uL Hgb 11.9 L (13.0-17.5) gm/dL Hct 36.6 L (39.0-53.0) % RDW 15.9 H (11.5-15.5) % Eosinophils # 1.5 H (0-0.7) k/uL Sodium 136 L (137-145) mmol/L BUN 43 H (9-20) mg/dL Total Protein 6.2 L (6.3-8.2) g/dL
[2024-09-08] MEDS: NON FORMULARY DRUG (Rosuvastatin Calcium [Crestor] 40 MG Tablet) PO SCH (23:42)
[2024-09-08] MEDS: amLODIPine 5 MG TAB PO SCH (23:42)
[2024-09-08] MEDS: TAMSULOSIN 0.4 MG CAP.ER.24H PO SCH (23:42)
[2024-09-09 01:03] LABS: Anisocytosis Slight; Basophils # (A) 0.1 k/uL (0-0.2); Basophils % (A) 1 %; Eosinophils # (A) 1.4 k/uL (0-0.7); Eosinophils % (A) 15 %; HCT 33.9 % (39.0-53.0); HGB 11.3 gm/dL (13.0-17.5); Lymphocytes # (A) 1.3 k/uL (1.0-4.8); Lymphocytes % (A) 14 %; MCH 28.5 pg (25.0-35.0); MCHC 33.2 g/dL (31.0-37.0); MCV 85.9 fL (80.0-100.0); Mean Platelet Volume 8.7; Monocytes % (A) 10 %; Neutrophils # (A) 5.8 k/uL (1.3-7.7); Neutrophils % (A) 59 %; Platelet Count 343 k/uL (150-450); RBC 3.95 m/uL (4.30-5.90); WBC 9.9 k/uL (3.8-10.6)
[2024-09-09 01:29] LABS: African American GFR (CKD) 58 (>60 ml/min/1.73 sqM); Anion Gap 3 mmol/L; Blood Urea Nitrogen 39 mg/dL (9-20); Calcium 9.9 mg/dL (8.4-10.2); Carbon Dioxide 26 mmol/L (22-30); Chloride 106 mmol/L (98-107); Glucose 111 mg/dL (74-99); Non-African American GFR(CKD) 50 (>60 ml/min/1.73 sqM); Potassium 4.1 mmol/L (3.5-5.1); Sodium 135 mmol/L (137-145)
[2024-09-09] MEDS: NITROGLYCERIN OINT 1 INCH/GM PACKET TOPICAL SCH (02:07)
[2024-09-09] MEDS: ENOXAPARIN 40 MG/0.4 ML SYRINGE SQ SCH (08:17)
--- NOTE | 2024-09-09 11:18 | P.PN ---
Subjective Progress Note Date: 09/09/24 Hospital course: Patient is a very pleasant 83-year-old male with a past medical history of CAD, hypertension, hyperlipidemia, GERD with Gold's esophagus, BPH, and history of left renal cancer status post nephrectomy currently with CKD stage IIIb. He presented to the emergency department on 09/08/2024 secondary to reports of chest pain. Upon arrival to our facility, patient underwent evaluation in the emergency department. Vital signs upon arrival show blood pressure 141/74, heart rate 77, respiratory rate 18, temp 97.5 F, and SpO2 of 99% on room air. EKG was completed showing normal sinus rhythm at 76 bpm with T wave inversion in aVL otherwise no significant T wave or ST abnormalities noted. Chest x-ray completed negative for acute cardiopulmonary process showing changes of COPD with flattening of the diaphragm and increased lucency of lungs. Labs completed and reviewed. CBC showing mild leukocytosis with WBC count of 11.0 normocytic anemia with hemoglobin stable at 11.9. Coagulation profile normal findings. BMP showing no significant abnormalities but did reveal sodium of 136 and consistent with known CKD with BUN of 43, creatinine of 1.24, and GFR of 54 with baseline creatinine around 1.4. Blood glucose was 88. Magnesium 2.0. Liver profile unremarkable. Troponin was negative at less than 0.012 and proBNP of 87. Lipase normal findings at 130. Patient admitted under services with consultation to cardiology. Troponins were trended all negative at less than 0.012 x 3 draws. Physical exam: Patient seen and fully evaluated at bedside this morning. He continues to report a slight discomfort to left anterior chest currently rating 1-2 out of 10 at this time. He denies having any other complaints including headache, lightheadedness, dizziness, palpitations, shortness of breath, cough or congestion, or any other complaints. Patient denies increased pain with palpation or movement but does feel that his pain is slightly worsened if he lays on his left side but not due to movement. Vital signs reviewed and stable. General: Nontoxic, no distress and appears stated age. Derm: Skin warm and dry, normal coloration for ethnicity. Head: Atraumatic, normocephalic and symmetric. Eyes: EOM's intact, no lid lag, and anicteric sclera Mouth: no lip lesions, mucus membranes moist Cardiovascular: regular rate and rhythm with normal S1S2, no murmur, positive posterior tibial pulses bilaterally, and cap refill < 2 seconds. Lungs: Respirations even, regular, and unlabored on room air. Lungs CTA bilaterally, no rhonchi, no rales, no wheezing, and no accessory muscle usage. Abdominal: soft, nontender to palpation, no guarding, no appreciable organomegaly Ext: ROM intact. No gross muscle atrophy, no edema, no contractures Neuro: Speech clear, face symmetrical and CN II-XII grossly intact with no noted focal neuro deficits Psych: Alert and oriented to person, place, time, and situation. Appropriate and pleasant affect. Assessment and Plan of Care: Chest pain, rule out acute coronary event History of CAD Hypertension Hyperlipidemia -Cardiology consulted, appreciate recommendations -Telemetry monitoring -Troponins trended all negative at less than 0.012 x 3 draws. -Patient to continue cardiac medication regimen with aspirin 81 mg nightly, amlodipine 5 mg twice daily, rosuvastatin 20 mg nightly, and Nitro-Bid ointment 0.5 inches every 8 hours. -Echocardiogram. GERD with history of Gold's esophagitis. -GI prophylaxis with Protonix 40 mg daily. BPH -Continue Flomax 0.4 mg nightly. History of renal cell carcinoma status post left nephrectomy BUN 39, creatinine 1.32, GFR 50, renal function at baseline. We will continue to monitor. Data and imaging reviewed: Morning labs reviewed. CBC showing stable normocytic anemia with hemoglobin of 11.3 otherwise normal findings. BMP showing sodium 135, BUN 39, creatinine of 1.32, and GFR of 50. Blood glucose 111. Troponins were trended overnight all negative at less than 0.012 x 3 draws. Vital signs reviewed. Blood pressure 101/51, heart rate 64, respiratory rate 17, temp 97.4 F, and SpO2 of 97% on room air. CODE STATUS: Full code DVT prophylaxis: Lovenox Anticipated discharge date: Likely within the next [address]: Home Patient was seen independently by Nurse Pracitioner. This document was prepared using Maker[employer] dictation software. Please allow for errors in molder machine, while rare they do occur. Rubio Chamorro NP rendered care for this patient independently, reviewed the findings and plan as documented in the note above and agree with plan. I did not physically speak with or examine the patient on this date. Objective - Vital Signs Vital signs: Vital Signs Temp 97.4 F L 09/09/24 06:50 Pulse 88 09/09/24 08:39 Resp 16 09/09/24 08:39 BP 134/58 09/09/24 08:39 Pulse Ox 97 09/09/24 06:50 FiO2 Intake & Output 09/08/24 09/09/24 09/09/24 18:59 06:59 18:59 Output Total 800 Balance -800 Weight 58.967 kg 58.967 kg Output: Urine 800 Other: Voiding Method Toilet Toilet Urinal Urinal - Labs CBC & Chem 7: 09/09/24 00:34 09/09/24 00:48 Labs: Abnormal Lab Results - Last 24 Hours (Table) 09/08/24 09/08/24 09/09/24 Range/Units 18:04 18:04 00:34 WBC 11.0 H (3.8-10.6) k/uL RBC 4.23 L 3.95 L (4.30-5.90) m/uL Hgb 11.9 L 11.3 L (13.0-17.5) gm/dL Hct 36.6 L 33.9 L (39.0-53.0) % RDW 15.9 H 16.0 H (11.5-15.5) % Eosinophils # 1.5 H 1.4 H (0-0.7) k/uL Sodium 136 L (137-145) mmol/L BUN 43 H (9-20) mg/dL Creatinine (0.66-1.25) mg/dL Glucose (74-99) mg/dL Total Protein 6.2 L (6.3-8.2) g/dL 09/09/24 Range/Units 00:48 WBC (3.8-10.6) k/uL RBC (4.30-5.90) m/uL Hgb (13.0-17.5) gm/dL Hct (39.0-53.0) % RDW (11.5-15.5) % Eosinophils # (0-0.7) k/uL Sodium 135 L (137-145) mmol/L BUN 39 H (9-20) mg/dL Creatinine 1.32 H (0.66-1.25) mg/dL Glucose 111 H (74-99) mg/dL Total Protein (6.3-8.2) g/dL
[2024-09-09] MEDS: PANTOPRAZOLE 40 MG TABLET PO SCH (11:43)
--- NOTE | 2024-09-09 17:02 | P.CRDCN ---
History of Present Illness History of present illness: This is Dr. Carey dictating a consult on this 83-year-old male Patient has been experiencing localized chest discomfort on the left side upper anterior ribs just below the medial aspect of the clavicle. The spot is tender and gets worse when he rolls over. The pain is constant. He was admitted with this to rule out an acute myocardial infarction. Pain is is constant localized associated tenderness and worse with chest movements cardiac enzymes are normal History of hypertension, dyslipidemia, renal cancer status post nephrectomy He takes Flomax amlodipine aspirin and Crestor Intolerant of clindamycin and atorvastatin On examination blood pressure 134/58 mmHg pulse rate in the 70s and 80s afebrile Breath sounds are clear Heart sounds are [employer] normal Chest wall tenderness, pinpoint Lungs are clear no rhonchi no crackles No lower extremity edema Impression Atypical chest discomfort suggestive of musculoskeletal pain very localized tender Normal twelve-lead EKG no ST segment abnormality, normal cardiac enzymes Hypertension, well-controlled Dyslipidemia Plan Continue management of hypertension and dyslipidemia No evidence for acute myocardial infarction The patient's history examination and review of data has not been consistent with an acute coronary syndrome either Past Medical History Past Medical History: Coronary Artery Disease (CAD), Cancer, Chest Pain / Angina, GERD/Reflux, Hyperlipidemia, Hypertension, Myocardial Infarction ([place]), Osteoarthritis (OA), Prostate Disorder, Renal Disease Additional Past Medical History / Comment(s): Recent upper respiratory tract i nfection, L renal cancer with nephrectomy/mets L lung and sternum/no longer taking oral chemo d/t it was affecting his kidney/states he receives infusion once a month but does not know what type of infusion last dose was 10/09/23, chronic renal failure stage IV, BPH, newsome's esophagus, gastritis, dry mouth, chronic low back pain, arthritis R great toe. Last Myocardial Infarction Date:: 02/29/20 History of Any Multi-Drug Resistant Organisms: None Reported Past Surgical History: Heart Catheterization, Orthopedic Surgery Additional Past Surgical History / Comment(s): Left nephrectomy 2016, RT HAND 2ND DIGIT LOST TOP OF FINGER IN CRUSHING INJURY, EGDs, colonoscopy, bilateral cataract removals/lens implants. Past Anesthesia/Blood Transfusion Reactions: No Reported Reaction Past Psychological History: Depression Smoking Status: Former smoker Past Alcohol Use History: Rare Past Drug Use History: Marijuana - Past Family History Father Family Medical History: Cancer, Hypertension, Myocardial Infarction ([place]) Additional Family Medical History / Comment(s): SKIN CANCER Mother Family Medical History: Cancer Additional Family Medical History / Comment(s): breast cancer - throat cancer Sister(s) Family Medical History: Cancer Additional Family Medical History / Comment(s): skin/breast and throat cancer Medications and Allergies Home Medications Medication Instructions Recorded Confirmed Type Tamsulosin HCl [Flomax] 0.4 mg PO HS 10/12/17 09/08/24 History amLODIPine [Norvasc] 5 mg PO BID 05/25/23 09/08/24 History Aspirin 81 mg PO HS 01/16/24 09/08/24 History Rosuvastatin Calcium [Crestor] 20 mg PO HS 09/08/24 09/08/24 History Allergies Allergy/AdvReac Type Severity Reaction Status Date / Time atorvastatin calcium AdvReac JOINT PAIN Verified 09/08/24 18:23 [From Lipitor] clindamycin AdvReac JOINT PAIN Verified 09/08/24 18:23 Physical Exam Vitals: Vital Signs Temp Pulse Pulse Resp BP BP BP 09/09/24 15:22 98.2 F 75 16 155/74 09/09/24 08:39 88 16 134/58 09/09/24 06:50 97.4 F L 64 17 101/51 09/09/24 02:00 78 09/09/24 01:11 97.9 F 70 16 135/70 09/08/24 22:54 78 09/08/24 22:17 98.3 F 78 17 160/54 09/08/24 20:44 98.8 F 78 16 137/78 09/08/24 19:37 97.6 F 74 16 133/82 09/08/24 17:17 97.5 F L 77 18 141/74 Pulse Ox 09/09/24 15:22 99 09/09/24 08:39 09/09/24 06:50 97 09/09/24 02:00 09/09/24 01:11 99 09/08/24 22:54 09/08/24 22:17 99 09/08/24 20:44 96 09/08/24 19:37 96 09/08/24 17:17 99 Intake and Output 09/09/24 09/09/24 09/09/24 06:59 14:59 22:59 Output Total 800 Balance -800 Output: Urine 800 Other: Voiding Method Toilet Urinal # Voids 3 # Bowel Movements 0 Results 09/09/24 00:34 09/09/24 00:48 Cardiac Enzymes 09/08/24 09/08/24 09/08/24 Range/Units 18:04 18:04 20:42 AST 19 (17-59) U/L Troponin I <0.012 <0.012 (0.000-0.034) ng/mL 09/09/24 Range/Units 00:48 AST (17-59) U/L Troponin I <0.012 (0.000-0.034) ng/mL Coagulation 09/08/24 Range/Units 18:04 PT 10.5 (10.0-12.5) sec APTT 24.6 (22.0-30.0) sec CBC 09/08/24 09/09/24 Range/Units 18:04 00:34 WBC 11.0 H 9.9 (3.8-10.6) k/uL RBC 4.23 L 3.95 L (4.30-5.90) m/uL Hgb 11.9 L 11.3 L (13.0-17.5) gm/dL Hct 36.6 L 33.9 L (39.0-53.0) % Plt Count 362 343 (150-450) k/uL Comprehensive Metabolic Panel 09/08/24 09/09/24 Range/Units 18:04 00:48 Sodium 136 L 135 L (137-145) mmol/L Potassium 4.2 4.1 (3.5-5.1) mmol/L Chloride 105 106 (98-107) mmol/L Carbon Dioxide 24 26 (22-30) mmol/L BUN 43 H 39 H (9-20) mg/dL Creatinine 1.24 1.32 H (0.66-1.25) mg/dL Glucose 88 111 H (74-99) mg/dL Calcium 10.0 9.9 (8.4-10.2) mg/dL AST 19 (17-59) U/L ALT 13 (4-49) U/L Alkaline Phosphatase 68 (38-126) U/L Total Protein 6.2 L (6.3-8.2) g/dL Albumin 3.9 (3.5-5.0) g/dL Current Medications Generic Name Dose Route Start Last Admin Trade Name Freq PRN Reason Stop Dose Admin Acetaminophen 325 mg 09/09/24 01:59 Acetaminophen Tab 325 Mg Tab PO Q6HR PRN Fever and/ or Pain Amlodipine Besylate 5 mg 09/08/24 23:15 09/09/24 08:17 Amlodipine 5 Mg Tab PO 5 mg BID JAY JAY Administration Aspirin 81 mg 09/09/24 21:00 Aspirin 81 Mg PO HS JAY JAY Enoxaparin Sodium 40 mg 09/09/24 09:00 09/09/24 08:17 Enoxaparin 40 Mg/0.4 Ml Syringe SQ 40 mg DAILY JAY JAY Administration Naloxone HCl 0.2 mg 09/08/24 19:39 Naloxone 0.4 Mg/Ml 1 Ml Vial IV Q2M PRN Opioid Reversal Nitroglycerin 0.5 inch 09/09/24 01:30 09/09/24 08:16 Nitroglycerin Oint 1 Inch/Gm Packet TOPICAL Not Given Q8HR [facility] Non Formulary Drug ( 20 mg 09/08/24 23:15 09/08/24 23:42 Rosuvastatin Calcium PO Not Given [Crestor] 40 Mg HS [facility] Tablet) Pantoprazole Sodium 40 mg 09/09/24 11:15 09/09/24 11:43 Pantoprazole 40 Mg Tablet PO 40 mg [id number] [facility] Administration Tamsulosin HCl 0.4 mg 09/08/24 23:15 09/08/24 23:42 Tamsulosin 0.4 Mg Cap.Er.24h PO 0.4 mg HS JAY JAY Administration Intake and Output 09/09/24 09/09/24 09/09/24 06:59 14:59 22:59 Output Total 800 Balance -800 Output: Urine 800 Other: Voiding Method Toilet Urinal # Voids 3 # Bowel Movements 0 09/09/24 00:34 09/09/24 00:48
[2024-09-09] MEDS: ACETAMINOPHEN TAB 325 MG TAB PO PRN (17:47)
--- NOTE | 2024-09-09 19:30 | CA ---
Transthoracic Echo Report Name: Kurtis Mckeon Age: 83 Gender: M : 1940 Exam Date: 09/09/2024 14:56 Exam Location: [place] [facility] Ht (in): 66 Wt (lb): 130 Ordering Physician: Matthieu Smyth DO Attending/Referring Phys: Assistant Accounting Manager Noemi Gonzalez, HERB Procedure CPT: Indications: possible ACS Cardiac Hx: Technical Quality: Good Contrast 1: Total Dose (mL): Contrast 2: Total Dose (mL): MEASUREMENTS (Male / Female) Normal Values 2D ECHO LV Diastolic Diameter PLAX 4.2 cm 4.2 - 5.9 / 3.9 - 5.3 cm LV Systolic Diameter PLAX 3.0 cm IVS Diastolic Thickness 1.2 cm 0.6 - 1.0 / 0.6 - 0.9 cm LVPW Diastolic Thickness 1.1 cm 0.6 - 1.0 / 0.6 - 0.9 cm LV Relative Wall Thickness 0.6 RV Internal Dim ED PLAX 2.3 cm Aortic Root Diameter 3.8 cm LA Systolic Diameter LX 3.2 cm 3.0 - 4.0 / 2.7 - 3.8 cm LV Diastolic Volume MOD BP 66.2 cm??? 67 - 155 / 56 - 104 cm??? LV Systolic Volume MOD BP 29.5 cm??? 22 - 58 / 19 - 49 cm??? LV Ejection Fraction MOD BP 55.5 % >= 55 % LV Cardiac Index MOD BP 1573.8 cm???/min???m??? LV Diastolic Volume MOD 4C 65.9 cm??? LV Systolic Volume MOD 4C 29.7 cm??? LV Ejection Fraction MOD 4C 54.9 % LV Cardiac Index MOD 4C 1551.2 cm???/min???m??? LV Diastolic Length 4C 7.3 cm LV Systolic Length 4C 6.1 cm LV Diastolic Volume MOD 2C 66.0 cm??? LV Systolic Volume MOD 2C 27.3 cm??? LV Ejection Fraction MOD 2C 58.7 % LV Cardiac Index MOD 2C 1659.4 cm???/min???m??? LV Diastolic Length 2C 7.4 cm LV Systolic Length 2C 5.7 cm LA Volume 52.9 cm??? 18 - 58 / 22 - 52 cm??? LA Volume Index 31.9 cm???/m??? 16 - 28 cm???/m??? Ascending Aorta Diameter 3.3 cm M-MODE Aortic Root Diameter MM 3.7 cm LA Systolic Diameter MM 3.1 cm LA Ao Ratio MM 0.8 AV Cusp Separation MM 1.6 cm DOPPLER AV Peak Velocity 99.5 cm/s AV Peak Gradient 4.0 mmHg AV Mean Velocity 70.5 cm/s AV Mean Gradient 2.2 mmHg AV Velocity Time Integral 27.3 cm AI Peak Velocity 433.4 cm/s AI Peak Gradient 75.1 mmHg AI Pressure Half Time 806.6 ms MV Area PHT 2.5 cm??? Mitral E Point Velocity 60.3 cm/s Mitral A Point Velocity 121.5 cm/s Mitral E to A Ratio 0.5 MV Deceleration Time 304.0 ms TR Peak Velocity 209.4 cm/s TR Peak Gradient 17.5 mmHg FINDINGS Left Ventricle Left ventricular ejection fraction is estimated at 50-55 %. Mildly increased septal wall thickness. Left ventricular cavity size normal. Mildly reduced global left ventricular systolic function. Right Ventricle Normal right ventricular size and function. Right ventricular systolic pressure within normal limits. Right Atrium Mild right atrial dilatation. Left Atrium Mildly increased left atrial volume. Mitral Valve Structurally normal mitral valve. No mitral stenosis. Mild mitral regurgitation. Aortic Valve Trileaflet aortic valve. Diffuse thickening (sclerosis) of the aortic valve cusps without reduced excursion. Moderate aortic regurgitation. Tricuspid Valve Structurally normal tricuspid valve. Mild tricuspid regurgitation. No tricuspid stenosis. Pulmonic Valve Structurally normal pulmonic valve. No pulmonic stenosis. Trace pulmonic regurgitation. Pericardium No pericardial or pleural effusion. Aorta Mild aortic dilatation at the level of the sinuses of valsalva (root), 3.9cm CONCLUSIONS LVH with preserved systolic function Thickened pericardium without effusion Mild biatrial enlargement Previewed by: Dr. Jean Pierre Carey MD (Electronically Signed) Final Date: 09 September 2024 19:29
[2024-09-09] MEDS: ASPIRIN 81 MG PO SCH (20:47)
[2024-09-10 07:08] VITALS: TEMP 97.7
[2024-09-10] MEDS: MORPHINE SULFATE 2 MG/ML SYRINGE IV PRN (08:12)
[2024-09-10 08:21] VITALS: BP 128/76; PULSE 89; RESP 18
--- NOTE | 2024-09-10 10:46 | XR ---
EXAMINATION TYPE: XR shoulder complete LT DATE OF EXAM: 09/10/2024 COMPARISON: None CLINICAL INDICATION: Male, 83 years old with history of left shoulder pain; TECHNIQUE: Three views are submitted. FINDINGS: The osseous structures are intact. There is no acute fracture or dislocation. Generalized deminerali zation with moderate AC joint uropathy. Emphysematous changes of the lungs. Localized area of deminer alization involving the proximal diaphysis humerus. IMPRESSION: 1. Moderate AC joint arthropathy. 2. Focal localized area of demineralization in the proximal diaphysis of the humerus. If history of m alignancy consider bone scan to exclude intraosseous lesion. [facility], , 09/10/2024 10:44 AM
[2024-09-10] MEDS: KETOROLAC 15 MG/ML 1 ML VIAL IVP STA (12:08)
[2024-09-10] MEDS: HYDROcodone/APAP 5-325MG 1 EACH TAB PO PRN (12:08)
--- NOTE | 2024-09-10 13:57 | P.DS ---
Providers Date of admission: 09/08/24 20:02 Expected date of discharge: 09/10/24 Attending physician: Myron Huynh MD Consults: 09/08/24 19:39 Consult Physician Urgent Consulting Provider: [facility] Consult Reason/Comments: acute chest pain, possible acs Do you want consulting provider notified?: Yes [facility] [place] [facility] Course: Discharge Diagnosis: Chest pain, acute coronary event ruled out Left shoulder pain, x-ray revealing AC joint arthroplasty and focal localized area of demineralization of the proximal diaphysis of humerus, discussed with patient recommending outpatient PET scan and for patient to discuss with his oncologist Dr. Mcneal. Patient may also follow-up with orthopedic surgery as needed. History of CAD Hypertension Hyperlipidemia GERD with history of Gold's esophagitis. 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 He presented to the emergency department on 09/08/2024 secondary to reports of chest pain. Upon arrival to our facility, patient underwent evaluation in the emergency department. Vital signs upon arrival show blood pressure 141/74, heart rate 77, respiratory rate 18, temp 97.5 F, and SpO2 of 99% on room air. EKG was completed showing normal sinus rhythm at 76 bpm with T wave inversion in aVL otherwise no significant T wave or ST abnormalities noted. Chest x-ray completed negative for acute cardiopulmonary process showing changes of COPD with flattening of the diaphragm and increased lucency of lungs. Labs completed and reviewed. CBC showing mild leukocytosis with WBC count of 11.0 normocytic anemia with hemoglobin stable at 11.9. Coagulation profile normal findings. BMP showing no significant abnormalities but did reveal sodium of 136 and consistent with known CKD with BUN of 43, creatinine of 1.24, and GFR of 54 with baseline creatinine around 1.4. Blood glucose was 88. Magnesium 2.0. Liver profile unremarkable. Troponin was negative at less than 0.012 and proBNP of 87. Lipase normal findings at 130. Patient admitted under services with consultation to cardiology. Troponins were trended all negative at less than 0.012 x 3 draws. Echocardiogram completed showing a preserved EF of 50 to 55% with LVH. biatrial enlargement and a thickened pericardium without effusion. He was evaluated by cardiology clearing patient from cardiac perspective for discharge. Patient continued to report mild pain to left anterior chest and into left shoulder shoulder x-ray was completed showing moderate AC joint arthropathy and a focal localized area of demineralization in the proximal diaphysis of the humerus. Placed order for [place] and spoke with patient at bedside. Patient currently undergoing monthly infusions for treatment for his metastatic cancer in his left lung and sternum with Dr. Mcneal recommended to patient to discuss with Dr. Mcneal recommendations for PET scan to ensure no further metastasis or bone lesions. Patient verbalized understanding. Patient reports [place] significantly relieved pain and is able to move shoulder and denies any further chest pain or discomfort. Patient medically optimized for discharge, discussed with patient he will need to follow-up outpatient with his PCP, oncologist, and slackman and may follow with orthopedic surgery for further evaluation of left shoulder. Patient discharged home with [place] 5/375 mg tablets that may be taken every 4 hours as needed for moderate to severe pain. Physical exam: Vital signs reviewed and stable. General: Nontoxic, no distress and appears stated age. Derm: Skin warm and dry, normal coloration for ethnicity. Head: Atraumatic, normocephalic and symmetric. Eyes: EOM's intact, no lid lag, and anicteric sclera Mouth: no lip lesions, mucus membranes moist Cardiovascular: regular rate and rhythm with normal S1S2, no murmur, positive posterior tibial pulses bilaterally, and cap refill < 2 seconds. Lungs: Respirations even, regular, and unlabored on room air. Lungs CTA bilaterally, no rhonchi, no rales, no wheezing, and no accessory muscle usage. Abdominal: soft, nontender to palpation, no guarding, no appreciable organomegaly Ext: ROM intact. No gross muscle atrophy, no edema, no contractures Neuro: Speech clear, face symmetrical and CN II-XII grossly intact with no noted focal neuro deficits Psych: Alert and oriented to person, place, time, and situation. Appropriate and pleasant affect. A total of 35 minutes of time were spent preparing this complex discharge summary. Pt was discharged on 09/10/2024 at 1:45 PM. Patient was seen independently by Nurse Practitioner. This document was prepared using [employer] dictation software. Please allow for errors in certified medical aide while rare they do occur. Rubio Chamorro NP rendered care for this patient independently, reviewed the findings and plan as documented in the note above. I did not physically speak with or examine the patient on this date. Patient Condition at Discharge: Stable Plan - Discharge Summary New Discharge Prescriptions: New HYDROcodone/APAP 5-325MG [[place] 5-325] 1 each PO Q4HR PRN #18 tab PRN Reason: Moderate Pain (Scale 4 To 6) Continue Tamsulosin HCl [Flomax] 0.4 mg PO HS Aspirin 81 mg PO HS Rosuvastatin Calcium [Crestor] 20 mg PO HS amLODIPine [Norvasc] 5 mg PO BID Discharge Medication List Tamsulosin HCl [Flomax] 0.4 mg PO HS 10/12/17 [History] amLODIPine [Norvasc] 5 mg PO BID 05/25/23 [History] Aspirin 81 mg PO HS 01/16/24 [History] Rosuvastatin Calcium [Crestor] 20 mg PO HS 09/08/24 [History] HYDROcodone/APAP 5-325MG [[place] 5-325] 1 each PO Q4HR PRN #18 tab 09/10/24 [Rx] Follow up Appointment(s)/Referral(s): Jean Pierre Carey MD [STAFF PHYSICIAN] - 1 Week Amador Mcneal [STAFF PHYSICIAN] - 1 Week (As discussed, continue current treatment course I would like you to call office to schedule appointment for recommended PET scan.) Gabriel Enciso DO [Doctor of Osteopathic Medicine] - 2 Weeks Derrell Cordova DO [Primary Care Provider] - 1-2 days Activity/Diet/Wound Care/Special Instructions: Activity: As tolerated. Take breaks as needed. Diet: Heart healthy and carb consistent diet. Avoid salts, or foods with hidden salts such as canned or boxed foods and frozen dinners. Extra salt makes your heart work harder and traps the fluid in your body for longer. Special Instructions: Take all of your medications as directed and remember to keep all of your doctor's appointments and follow-up as needed. Wishing you and your family a very blessed and wonderful holiday season and a happy healthier new year! Thank you for allowing us to participate in your care, it was truly a pleasure having you for our patient!!! . Discharge Disposition: HOME SELF-CARE
== END 2024-09-10 15:55 | disposition home or self-care (01) ==
LOC: EC 17:08 → 6NMEDSUR 20:02
PROVIDERS: ADMIT Internal Medicine; ATTEND Internal Medicine
DX: R07.89 Other chest pain (principal); M25.512 Pain in left shoulder; I25.10 Atherosclerotic heart disease of native coronary artery without angina pectoris; D72.829 Elevated white blood cell count, unspecified; E87.1 Hypo-osmolality and hyponatremia; D64.9 Anemia, unspecified; E78.5 Hyperlipidemia, unspecified; F32.A Depression, unspecified; I13.10 Hypertensive heart and chronic kidney disease without heart failure, with stage 1 through stage 4 chronic kidney disease, or unspecified chronic kidney disease; E11.22 Type 2 diabetes mellitus with diabetic chronic kidney disease; I25.2 Old myocardial infarction; K21.9 Gastro-esophageal reflux disease without esophagitis; N18.4 Chronic kidney disease, stage 4 (severe); N40.0 Benign prostatic hyperplasia without lower urinary tract symptoms; M81.0 Age-related osteoporosis without current pathological fracture; Z79.82 Long term (current) use of aspirin; Z79.899 Other long term (current) drug therapy; Z85.528 Personal history of other malignant neoplasm of kidney; Z90.5 Acquired absence of kidney; Z88.1 Allergy status to other antibiotic agents; Z88.8 Allergy status to other drugs, medicaments and biological substances; Z87.891 Personal history of nicotine dependence; Z85.118 Personal history of other malignant neoplasm of bronchus and lung; Z85.830 Personal history of malignant neoplasm of bone
CPT/HCPCS: 96376; 96372 ×2; 96375; 96374; 99285; 36415; 93005; 93306; 83880; 80053; 80048; 83690; 83735; 84484 ×3; 85025 ×2; 85610; 85730; 73030; 71046; G0378 ×3; J2270 ×2; J1650 ×2; J1885

== ENCOUNTER → 2024-09-25 | Outpatient (CLI) | payer OTHER ==
--- NOTE | 2024-09-25 14:51 | NM ---
EXAMINATION TYPE: NM bone scan whole body DATE OF EXAM: 09/25/2024 COMPARISON: NONE CLINICAL INDICATION: Male, 83 years old with history of C79.51 BONE METASTASIS; TECHNIQUE: Delayed whole-body scanning was performed following the injection of 24.0 mCi Tc 99m MDP. Images acquired 5.25 hours post injection. FINDINGS: There is degenerative tracer activity at both shoulders. Focal activity lower cervical spine, sternoc lavicular joints, upper sternal body, mid thoracic spine, scattered throughout the lumbar spine, left knee, left first MTP joint, and base of the thumb on both sides. Photopenia in the left side of the abdomen in keeping with absence of the left kidney. IMPRESSION: Activity in multiple locations including the spine, shoulders, sternoclavicular joints, l eft knee, first MTP joint, and basilar thumbs favoring degenerative change. Activity in the upper je rnal body region however is nonspecific. Both osseous metastasis and degenerative change at the seo omanubrial joint are considerations. Further clinical correlation recommended. [facility], , 09/25/2024 2:49 PM
== END | disposition home or self-care (01) ==
LOC: RADNMMAIN 07:28
PROVIDERS: ATTEND Internal Medicine Hematology & Oncology
DX: C79.51 Secondary malignant neoplasm of bone (principal)
CPT/HCPCS: 78306; A9503

== ENCOUNTER 2024-10-02 00:04 | Inpatient (IN) | payer OTHER, MEDICARE ==
--- NOTE | 2024-10-02 00:20 | ED ---
Chest Pain HPI - General Chief Complaint: Chest Pain Stated Complaint: Chest pain Source: patient, RN notes reviewed, old records reviewed Mode of arrival: wheelchair - History of Present Illness Initial Comments: This is an 83-year-old male with recent hospital admission for chest pain chest pain observation, to the ER with chest pain tonight. Patient also has paperwork stating severely elevated calcium levels this is from his kidney doctor. Patient states he has chest pain here in the ER may be some mild anxiety and weakness MD Complaint: chest pain -: minutes(s) Pain Location: substernal, left chest Pain Radiation: LUE Severity: moderate Severity scale (1-10): 4 Quality: tightness Consistency: constant Improves With: nothing Worsens With: nothing Anginal Symptoms: sense of impending doom Other Symptoms: palpitations Treatments Prior to Arrival: none - Related Data Home Medications Medication Instructions Recorded Confirmed Tamsulosin HCl [Flomax] 0.4 mg PO HS 10/12/17 10/02/24 amLODIPine [Norvasc] 5 mg PO BID 05/25/23 10/02/24 Aspirin 81 mg PO HS 01/16/24 10/02/24 Rosuvastatin Calcium [Crestor] 20 mg PO HS 09/08/24 10/02/24 HYDROcodone/APAP 10-325MG [[place] 1 tab PO Q4HR PRN 10/02/24 10/02/24 10-325] Allergies Allergy/AdvReac Type Severity Reaction Status Date / Time atorvastatin calcium AdvReac JOINT PAIN Verified 10/02/24 07:48 [From Lipitor] clindamycin AdvReac JOINT PAIN Verified 10/02/24 07:48 Review of Systems ROS Statement: Those systems with pertinent positive or pertinent negative responses have been documented in the HPI. ROS Other: All systems not noted in ROS Statement are negative. EKG Findings - EKG Comments: EKG Findings:: EKG is sinus rhythm 77 IN 196 QRS 101 QTc 384 - EKG Results: EKG: interpreted by JACKY Past Medical History Past Medical History: Coronary Artery Disease (CAD), Cancer, Chest Pain / Angina, GERD/Reflux, Hyperlipidemia, Hypertension, Myocardial Infarction (CT), Osteoarthritis (OA), Prostate Disorder, Renal Disease Additional Past Medical History / Comment(s): Recent upper respiratory tract infection, L renal cancer with nephrectomy/mets L lung and sternum/no longer taking oral chemo d/t it was affecting his kidney/states he receives infusion once a month but does not know what type of infusion last dose was 10/09/23, chronic renal failure stage IV, BPH, newsome's esophagus, gastritis, dry mouth, chronic low back pain, arthritis R great toe. Last Myocardial Infarction Date:: 02/29/20 History of Any Multi-Drug Resistant Organisms: None Reported Past Surgical History: Heart Catheterization, Orthopedic Surgery Additional Past Surgical History / Comment(s): Left nephrectomy 2016, RT HAND 2ND DIGIT LOST TOP OF FINGER IN CRUSHING INJURY, EGDs, colonoscopy, bilateral cataract removals/lens implants. Past Anesthesia/Blood Transfusion Reactions: No Reported Reaction Past Psychological History: Depression Smoking Status: Former smoker Past Alcohol Use History: Rare Past Drug Use History: Marijuana - Past Family History Father Family Medical History: Cancer, Hypertension, Myocardial Infarction (CT) Additional Family Medical History / Comment(s): SKIN CANCER Mother Family Medical History: Cancer Additional Family Medical History / Comment(s): breast cancer - throat cancer Sister(s) Family Medical History: Cancer Additional Family Medical History / Comment(s): skin/breast and throat cancer General Exam General appearance: alert, in no apparent distress Head exam: Present: atraumatic, normocephalic, normal inspection Eye exam: Present: normal appearance, PERRL, EOMI. Absent: scleral icterus, conjunctival injection, periorbital swelling ENT exam: Present: normal exam, mucous membranes moist Neck exam: Present: normal inspection. Absent: tenderness, meningismus, lymphadenopathy Respiratory exam: Present: normal lung sounds bilaterally. Absent: respiratory distress, wheezes, rales, rhonchi, stridor Cardiovascular Exam: Present: regular rate, normal rhythm, normal heart sounds. Absent: systolic murmur, diastolic murmur, rubs, gallop, clicks GI/Abdominal exam: Present: soft, normal bowel sounds. Absent: distended, tend erness, guarding, rebound, rigid Extremities exam: Present: normal inspection, full ROM, normal capillary refill. Absent: tenderness, pedal edema, joint swelling, calf tenderness Back exam: Present: normal inspection Neurological exam: Present: alert, oriented X3, CN II-XII intact Psychiatric exam: Present: normal affect, normal mood Skin exam: Present: warm, dry, intact, normal color. Absent: rash Course Vital Signs 10/02/24 10/02/24 10/02/24 00:09 02:06 05:44 Temperature 98.2 F Pulse Rate 86 74 73 Pulse Rate [ Pulse Oximetery ] Respiratory 18 16 18 Rate Blood Pressure 155/79 159/95 126/71 Blood Pressure [Left Arm] O2 Sat by Pulse 97 97 97 Oximetry 10/02/24 10/02/24 10/02/24 09:01 12:23 15:30 Temperature 97.4 F L 97.7 F Pulse Rate 80 77 82 Pulse Rate [ Pulse Oximetery ] Respiratory 18 18 16 Rate Blood Pressure 163/86 136/73 154/87 Blood Pressure [Left Arm] O2 Sat by Pulse 97 96 96 Oximetry 10/02/24 10/02/24 20:00 20:43 Temperature 97.5 F L Pulse Rate 80 Pulse Rate [ 83 Pulse Oximetery ] Respiratory 15 Rate Blood Pressure 152/91 Blood Pressure 167/81 [Left Arm] O2 Sat by Pulse 95 98 Oximetry - Reevaluation(s) Reevaluation #1: 10/02/24 01:27 Medical records reviewed Reevaluation #2: 10/02/24 01:27 Symptoms unchanged Reevaluation #3: 10/02/24 01:27 Patient informed of results questions answered Reevaluation #4: Was pt. sent in by a medical professional or institution (, PA, ASSEMBLER EQUIPMENT, urgent care, hospital, or retirement...) When possible be specific @ -no Did you speak to anyone other than the patient for history (EMS, parent, family, police, friend...)? What history was obtained from this source @ -no Did you review nursing and triage notes (agree or disagree)? Why? @ -agree Are old charts reviewed (outside hosp., previous admission, EMS record, old EKG, old radiological studies, urgent care reports/EKG's, retirement records)? Report findings @ -yes Differential Diagnosis (chest pain, altered mental status, abdominal pain women, abdominal pain men, vaginal bleeding, weakness, fever, dyspnea, syncope, headache, dizziness, GI bleed, back pain, seizure, CVA, palpatations, mental health, musculoskeletal)? @ -prior EKG interpreted by me (3pts min.). @ -yes X-rays interpreted by me (1pt min.). @ -no CT interpreted by me (1pt min.). @ -no U/S interpreted by me (1pt. min.). @ -no What testing was considered but not performed or refused? (CT, X-rays, U/S, labs)? Why? @ -none What meds were considered but not given or refused? Why? @ -none Did you discuss the management of the patient with other professionals (p ashleighfessedith i.e. , PA, ASSEMBLER EQUIPMENT, lab, RT, psych nurse, social worker delinquency prevention, name plate stamping machine operator, teacher, custody officer, case repairer)? Give summary @ -no Was smoking cessation discussed for >3mins.? @ -no Was critical care preformed (if so, how long)? @ -no Were there social determinants of health that impacted care today? How? (Homelessness, low income, unemployed, alcoholism, drug addiction, transportation, low edu. Level, literacy, decrease access to med. care, usp, rehab)? @ -none Was there de-escalation of care discussed even if they declined (Discuss DNR or withdrawal of care, Hospice)? DNR status @ -no What co-morbidities impacted this encounter? (DM, HTN, Smoking, COPD, CAD, Cancer, CVA, ARF, Chemo, Hep., AIDS, mental health diagnosis, sleep apnea, morbid obesity)? @ -none Was patient admitted / discharged? Hospital course, mention meds given and route, prescriptions, significant lab abnormalities, going to OR and other pertinent info. @ - 83 who presents to the ER with chest pain known history of recent findings of elevated calcium level, this male will be admitted for chest pain, severely elevated calcium levels. Patient will be admitted for nephrology and cardiology evaluation Admitted Undiagnosed new problem with uncertain prognosis? @ -no Drug Therapy requiring intensive monitoring for toxicity (Heparin, Nitro, Insulin, Cardizem)? @ -no Were any procedures done? @ -no Diagnosis/symptom? @ -Hypercalcemia Acute, or Chronic, or Acute on Chronic? @ -Acute Uncomplicated (without systemic symptoms) or Complicated (systemic symptoms)? @ -Complicated Side effects of treatment? @ -no Exacerbation, Progression, or Severe Exacerbation? @ -exacerbation Poses a threat to life or bodily function? How? (Chest pain, USA, CT, pneumonia, PE, COPD, DKA, ARF, appy, cholecystitis, CVA, Diverticulitis, Homicidal, Suicidal, threat to staff... and all critical care pts) @ -yes extremes of age Reevaluation #5: Differential Chest Pain: Stable Angina, Unstable Angina, STEMI, NSTEMI Aortic Dissection, Pneumothorax, Musculoskeletal, Esophageal Spasm GERD, Cholecystitis, Pancreatitis, Zoster, this is not meant to be an all-inclusive list. - Consultations Consultation #1: Spoke with sound who agrees to admit this patient Chest Pain MDM - MDM 83 who presents to the ER with chest pain known history of recent findings of elevated calcium level, this male will be admitted for chest pain, severely elevated calcium levels. Patient will be admitted for nephrology and cardiology evaluation Disposition Clinical Impression: Chest pain, History of renal cell cancer, [place] (acute kidney injury), Dehydration, CKD (chronic kidney disease), Hypercalcemia Disposition: ADMITTED IP TO THIS HOSP Condition: Poor Is patient prescribed a controlled substance at d/c from ED?: No Time of Disposition: 01:20
[2024-10-02] MEDS: SODIUM CHLORIDE 0.9% 1,000 ML IV STA (00:58)
[2024-10-02 01:07] LABS: Basophils # (A) 0.1 k/uL (0-0.2); Basophils % (A) 1 %; Eosinophils # (A) 1.5 k/uL (0-0.7); Eosinophils % (A) 20 %; HCT 34.5 % (39.0-53.0); HGB 11.8 gm/dL (13.0-17.5); Lymphocytes # (A) 1.4 k/uL (1.0-4.8); Lymphocytes % (A) 19 %; MCH 28.7 pg (25.0-35.0); MCHC 34.1 g/dL (31.0-37.0); MCV 84.3 fL (80.0-100.0); Monocytes # (A) 0.7 k/uL (0-1.0); Monocytes % (A) 9 %; Neutrophils # (A) 3.6 k/uL (1.3-7.7); Neutrophils % (A) 49 %; Platelet Count 320 k/uL (150-450); RBC 4.09 m/uL (4.30-5.90); RDW 15.6 % (11.5-15.5); WBC 7.4 k/uL (3.8-10.6)
[2024-10-02 01:11] LABS: ALT 15 U/L (4-49); AST 20 U/L (17-59); African American GFR (CKD) 58 (>60 ml/min/1.73 sqM); Albumin 3.7 g/dL (3.5-5.0); Alkaline Phosphatase 60 U/L (38-126); Anion Gap 5 mmol/L; Blood Urea Nitrogen 32 mg/dL (9-20); Calcium 12.2 mg/dL (8.4-10.2); Carbon Dioxide 29 mmol/L (22-30); Chloride 103 mmol/L (98-107); Glucose 123 mg/dL (74-99); Lipase 191 U/L (23-300); Non-African American GFR(CKD) 51 (>60 ml/min/1.73 sqM); Potassium 3.8 mmol/L (3.5-5.1); Sodium 137 mmol/L (137-145); Total Bilirubin 0.3 mg/dL (0.2-1.3); Total Protein 6.1 g/dL (6.3-8.2)
[2024-10-02 01:12] LABS: Partial Thromboplastin Time 22.9 sec (22.0-30.0); Prothrombin Time 10.6 sec (10.0-12.5)
[2024-10-02 01:19] LABS: NT-Pro-B-Type Natriuretic Pept 168 pg/mL
[2024-10-02] MEDS ORDERED: NALOXONE 0.4 MG/ML 1 ML VIAL IV PRN (01:24)
[2024-10-02] MEDS: SODIUM CHLORIDE 0.9% 1,000 ML IV SCH (01:45)
--- NOTE | 2024-10-02 02:28 | XR ---
EXAM: XR Chest, 2 Views CLINICAL HISTORY: XR Reason: Chest Pain TECHNIQUE: Frontal and lateral views of the chest. COMPARISON: September 08, 2024 FINDINGS: Lungs: Slightly prominent interstitial markings throughout both lungs suggesting mild emphysema. This is similar to previous. No new infiltrate is identified. Pleural space: Unremarkable. No pneumothorax. Heart: Unremarkable. No cardiomegaly. Mediastinum: Unremarkable. Normal mediastinal contour. Bones/joints: Mild degenerative changes throughout the thoracic spine, unchanged. No acute fracture. Vasculature: The aortic arch is mildly calcified. Upper abdomen: Unremarkable as visualized. No pneumoperitoneum under the diaphragm. IMPRESSION: Slightly prominent interstitial markings throughout both lungs suggesting mild emphysema. This is similar to previous. No new infiltrate is identified.
[2024-10-02] MEDS: MORPHINE SULFATE 4 MG/ML SYRINGE IV PRN (02:52)
--- NOTE | 2024-10-02 02:56 | P.HPIM ---
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 Bhatt including hypercalcemia. Patient states he also had high blood pressure readings at home of 150s over 90s. He currently endorses left-sided chest pain without radiation suspects it is due to his arthritis. Patient states he took his blood pressure medications today before coming to the hosp ital. Patient states he has a history of mini stroke last year, but denies use of blood thinners besides aspirin. Patient also endorses a decreased appetite the last week or so and states he has not been drinking enough water. He denies headaches, vision changes, lower extremity swelling, abdominal pain, fevers, chills, nausea, vomiting, diarrhea ED documentation reviewed. In the ED patient was treated with a fluid bolus. Vitals on admission temperature 98.2, heart rate is 86 bpm, respiratory rate 18, blood pressure 155/79, O2 saturation 97% on room air. EKG independently interpreted as sinus rhythm with vent with a rate of 77 bpm and QTc of 384 ms with no acute ST-T wave changes. CXR interpreted independently as no acute cardiopulmonary process Labs on admission show the 7.4, hemoglobin 11.8, platelets 320. PT 10.6, INR 1, PTT 22.9. Sodium 137, testing 3.8, chloride 103, bicarb 29, BUN 32, creatinine 1.31, glucose 123. Calcium 12.2, ionized calcium 6.5. Magnesium 2. LFTs within normal limits. Troponin negative. NT proBNP 168. Lipase 191. Review of systems: Pertinent positives and negatives as discussed in HPI, a complete review of systems was performed and all other systems are negative. PCP: [facility] Cardio: Dr. Sultana Social history: Tobacco: former Alcohol: rarely Recreational drugs: none Travel: none Sick contacts: none Physical examination: Vital signs reviewed General: nontoxic, no distress, appears at stated age Derm: warm, dry, intact Head: atraumatic, normocephalic, symmetric Eyes: anicteric sclera Mouth: no lip lesion, mucus membranes moist Cardiovascular: S1 S2 reg, no murmur Lungs: CTA bilateral, no rhonchi, no rales, no accessory muscle use Abdominal: soft, non-tender to palpation, nondistended Extremities: No cyanosis, clubbing, or pedal edema. Neuro: Alert, Oriented to person, time and place, Gross neurological examination did not reveal any focal deficits. Cranial nerves II to XII grossly intact. Bilateral upper and lower extremity muscle strength intact and sensation intact. Psych: well appearing, appropriate affect Assessment/Plan: Patient is a 83-year-old male with past medical history of CAD, GERD, hyperlipidemia, hypertension, osteoarthritis, history of renal cancer with metastasis, CKD stage IIIa, BPH, history of [place] and chronic low back pain who presented to the ED due to abnormal labs, elevated blood pressure, and chest pain. Case was discussed with ED doc and patient will be admitted will be admitted to internal medicine service. Active: Atypical chest pain, rule out ACS Troponin negative Trend troponin every 3 hours x 2 Recent echo from 09/10 shows EF of 50 to 55% Continue aspirin 81 mg po daily Continue Crestor 40 mg p.o. at bedtime Cardiology consult bus driver/monitor Lipid panel , A1C Morphine 4 mg IV push every 4 hours as needed Zofran 4 mg IV push every 8 hours as needed Hypercalcemia, possibly secondary to malignancy Calcium 12.2, ionized calcium 6.5 Consult nephrology Suspected pulmonary nodules contributing to hypercalcemia Consult pulmonology Consider obtaining NICO level Chronic: CKD stage IIIA at baseline BUN 32, creatinine 1.31, GFR 51 Continue to monitor Consult nephrology BPH Continue Flomax 0.4 mg p.o. at bedtime Hypertension Continue amlodipine 5 mg twice daily Hyperlipidemia Increased Crestor to 40 mg p.o. at bedtime F: Normal saline at 75 mL/h E: Replete as needed N: Heart healthy A: Patient ambulates independently at baseline DVT prophylaxis: 40 mg Lovenox subcutaneously, calculated creatinine clearance of 34 The patient is admitted with an anticipated more than 2 midnight stay for evaluation of atypical chest pain and hypercalcemia CODE STATUS: Full code Discussed with: Patient Anticipated discharge place: Pending clinical course Past Medical History Past Medical History: Coronary Artery Disease (CAD), Cancer, Chest Pain / Angina, GERD/Reflux, Hyperlipidemia, Hypertension, Myocardial Infarction ([place]), Osteoarthritis (OA), Prostate Disorder, Renal Disease Additional Past Medical History / Comment(s): Recent upper respiratory tract infection, L renal cancer with nephrectomy/mets L lung and sternum/no longer taking oral chemo d/t it was affecting his kidney/states he receives infusion once a month but does not know what type of infusion last dose was 10/09/23, chronic renal failure stage IV, BPH, newsome's esophagus, gastritis, dry mouth, chronic low back pain, arthritis R great toe. Last Myocardial Infarction Date:: 02/29/20 History of Any Multi-Drug Resistant Organisms: None Reported Past Surgical History: Heart Catheterization, Orthopedic Surgery Additional Past Surgical History / Comment(s): Left nephrectomy 2015, RT HAND 2ND DIGIT LOST TOP OF FINGER IN CRUSHING INJURY, EGDs, colonoscopy, bilateral cataract removals/lens implants. Past Anesthesia/Blood Transfusion Reactions: No Reported Reaction Past Psychological History: Depression Smoking Status: Former smoker Past Alcohol Use History: Rare Past Drug Use History: Marijuana - Past Family History Father Family Medical History: Cancer, Hypertension, Myocardial Infarction ([place]) Additional Family Medical History / Comment(s): SKIN CANCER Mother Family Medical History: Cancer Additional Family Medical History / Comment(s): breast cancer - throat cancer Sister(s) Family Medical History: Cancer Additional Family Medical History / Comment(s): skin/breast and throat cancer Medications and Allergies Home Medications Medication Instructions Recorded Confirmed Type Tamsulosin HCl [Flomax] 0.4 mg PO HS 10/12/17 09/08/24 History amLODIPine [Norvasc] 5 mg PO BID 05/25/23 09/08/24 History Aspirin 81 mg PO HS 01/16/24 09/08/24 History Rosuvastatin Calcium [Crestor] 20 mg PO HS 09/08/24 09/08/24 History HYDROcodone/APAP 5-325MG [[place] 1 each PO Q4HR PRN #18 tab 09/10/24 Rx 5-325] Allergies Allergy/AdvReac Type Severity Reaction Status Date / Time atorvastatin calcium AdvReac JOINT PAIN Verified 10/02/24 00:15 [From Lipitor] clindamycin AdvReac JOINT PAIN Verified 10/02/24 00:15 Physical Exam Vitals: Vital Signs Temp Pulse Resp BP Pulse Ox 10/02/24 00:09 98.2 F 86 18 155/79 97 Intake and Output 10/01/24 10/01/24 10/02/24 14:59 22:59 06:59 Other: Weight 55.338 kg Results CBC & Chem 7: 10/02/24 00:38 10/02/24 00:38 Labs: Abnormal Lab Results - Last 24 Hours (Table) 10/02/24 10/02/24 10/02/24 Range/Units 00:35 00:38 00:38 RBC 4.09 L (4.30-5.90) m/uL Hgb 11.8 L (13.0-17.5) gm/dL Hct 34.5 L (39.0-53.0) % RDW 15.6 H (11.5-15.5) % Eosinophils # 1.5 H (0-0.7) k/uL BUN 32 H (9-20) mg/dL Creatinine 1.31 H (0.66-1.25) mg/dL Glucose 123 H (74-99) mg/dL Calcium 12.2 H (8.4-10.2) mg/dL Ionized Calcium Mellisa 6.5 H* (4.5-5.3) mg/dL Total Protein 6.1 L (6.3-8.2) g/dL
--- NOTE | 2024-10-02 04:09 | P.CNPUL ---
History of Present Illness Consult date: 10/02/24 Requesting physician: Felice Salas Reason for consult: other (History of pulmonary nodules) Chief complaint: Chest pain History of present illness: Patient is an 84-year-old male with past medical history significant for metastatic renal cell carcinoma with previous left nephrectomy, chronic kidney disease, hypertension, hyperlipidemia, nonobstructive coronary artery disease, BPH, COPD, among other things. Patient states history of kidney cancer that metastasized to lung and sternum. Originally, diagnosed back in 2016, and since had left-sided nephrectomy. Has recently seen Dr. Figueroa in the pulmonary office for some enlarged mediastinal lymphadenopathy. Had a CT of the chest, abdomen and pelvis at [facility] 05/28/2024. Report faxed over to the pulmonary office, from outside facility, describes tiny groundglass opacities involving left upper lobe measuring 9 mm, unchanged from prior examination. Enlarged lymph node seen in the precarinal region measuring 2 cm. Osteolytic changes to the proximal sternum, surgically absent left kidney. Right renal cortical and parapelvic cysts. He follows with his established oncologist Dr. Mcneal. Reportedly undergoes infusions every 4 weeks, unable to recall the medication. Patient did have a recent hospitalization for chest pain, September 08 through . He was worked up for ACS, which was essentially ruled out. Also, had a negative dobutamine stress test Jan, 2024. Patient returns with the chief compla int of chest pain. Pulmonary was consulted for the patient's history of pulmonary nodules. Chest x-ray done on admission showing hyperinflation and flattening of the diaphragm consistent with COPD. No obvious nodularities or masses. CBC: WBC count 7.4, hemoglobin 11.8, hematocrit 34.5, platelets 320. CMP: Sodium 137, potassium 3.8, chloride 103, serum bicarb 29, BUN 32, creatinine 1.31, glucose 123, sinus calcium 6.5. Troponin less than 0.012. NT proBNP 168. EKG: Normal sinus rhythm, rate 77 bpm, no acute ischemic changes. Normal sinus infusing at 75 mL/h. Most recent vital signs: Afebrile, heart rate 86 bpm, respiratory rate 18, blood pressure 155/79 mmHg, SpO2 is 97% on room air. Patient currently being evaluated emergency department, room 10. He is lying in bed on room air in no acute distress. He is describing left upper anterior nonradiating chest pain. Localized just below the medial clavicle. Continuous in nature. Currently rated 5 on a 10 point numerical scale. He just recently received some pain medication. Not particularly worse with palpation nor position changes. Denies shortness of breath, cough, sputum production, hemoptysis, fever/chills. Does report poor appetite and further weight loss, however, unable to quantify. Denies any trouble swallowing or dysphagia. No stridor. Denies any new masses or enlarged lymph nodes. Review of Systems Constitutional: Reports fatigue, Reports weight loss, Denies chills, Denies fever, Denies night sweats, Denies poor appetite, Denies weight gain Ears, nose, mouth and throat: Denies dysphagia, Denies epistaxis, Denies headache, Denies nasal congestion, Denies nasal discharge, Denies neck fullness/pressure, Denies neck lump, Denies odynophagia, Denies post-nasal drip, Denies sinus pain, Denies sinus pressure, Denies sore throat, Denies voice changes Cardiovascular: Reports chest pain, Reports high blood pressure, Denies decreased exercise tolerance, Denies leg edema, Denies lightheadedness, Denies orthopnea, Denies palpitations, Denies paroxysmal nocturnal dyspnea, Denies rapid heart beat, Denies shortness of breath, Denies syncope Respiratory: Denies congestion, Denies cough, Denies cough with sputum, Denies hemoptysis, Denies pain on inspiration, Denies wheezing Gastrointestinal: Denies abdominal pain, Denies diarrhea, Denies nausea, Denies vomiting Genitourinary: Denies dysuria Musculoskeletal: Denies limitation of motion Musculoskeletal: bilateral: shoulder pain, shoulder stiffness Integumentary: Denies rash Neurological: Denies seizures, Denies syncope Psychiatric: Denies anxiety, Denies depression Past Medical History Past Medical History: Coronary Artery Disease (CAD), Cancer, Chest Pain / Angina, GERD/Reflux, Hyperlipidemia, Hypertension, Myocardial Infarction ([place]), Osteoarthritis ([place]), Prostate Disorder, Renal Disease Additional Past Medical History / Comment(s): Recent upper respiratory tract infection, L renal cancer with nephrectomy/mets L lung and sternum/no longer taking oral chemo d/t it was affecting his kidney/states he receives infusion once a month but does not know what type of infusion last dose was 10/09/23, chronic renal failure stage IV, BPH, newsome's esophagus, gastritis, dry mouth, chronic low back pain, arthritis R great toe. Last Myocardial Infarction Date:: 02/29/20 History of Any Multi-Drug Resistant Organisms: None Reported Past Surgical History: Heart Catheterization, Orthopedic Surgery Additional Past Surgical History / Comment(s): Left nephrectomy 2016, RT HAND 2ND DIGIT LOST TOP OF FINGER IN CRUSHING INJURY, EGDs, colonoscopy, bilateral cataract removals/lens implants. Past Anesthesia/Blood Transfusion Reactions: No Reported Reaction Past Psychological History: Depression Smoking Status: Former smoker Past Alcohol Use History: Rare Past Drug Use History: Marijuana - Past Family History Father Family Medical History: Cancer, Hypertension, Myocardial Infarction ([place]) Additional Family Medical History / Comment(s): SKIN CANCER Mother Family Medical History: Cancer Additional Family Medical History / Comment(s): breast cancer - throat cancer Sister(s) Family Medical History: Cancer Additional Family Medical History / Comment(s): skin/breast and throat cancer Medications and Allergies Home Medications Medication Instructions Recorded Confirmed Type Tamsulosin HCl [Flomax] 0.4 mg PO HS 10/12/17 09/08/24 History amLODIPine [Norvasc] 5 mg PO BID 05/25/23 09/08/24 History Aspirin 81 mg PO HS 01/16/24 09/08/24 History Rosuvastatin Calcium [Crestor] 20 mg PO HS 09/08/24 09/08/24 History HYDROcodone/APAP 5-325MG [[place] 1 each PO Q4HR PRN #18 tab 09/10/24 Rx 5-325] Allergies Allergy/AdvReac Type Severity Reaction Status Date / Time atorvastatin calcium AdvReac JOINT PAIN Verified 10/02/24 00:15 [From Lipitor] clindamycin AdvReac JOINT PAIN Verified 10/02/24 00:15 Physical Exam Vitals: Vital Signs Temp Pulse Resp BP Pulse Ox 10/02/24 00:09 98.2 F 86 18 155/79 97 Intake and Output 10/01/24 10/01/24 10/02/24 14:59 22:59 06:59 Other: Weight 55.338 kg GENERAL EXAM: Alert, 83-year-old male patient, laying in bed,, comfortable in no apparent distress. HEAD: Normocephalic and atraumatic EYES: Normal reaction of pupils, equal size. NOSE: Clear with pink turbinates. THROAT: No erythema or exudates. NECK: No masses, no JVD. No stridor. CHEST: No chest wall deformity. LUNGS: Equal air entry with no crackles, wheeze, rhonchi or dullness. On room air. No conversational dyspnea or accessory muscle use.. CVS: S1 and S2 normal with no audible murmur, regular rhythm. No extra heart sounds ABDOMEN: No hepatosplenomegaly, active bowel sounds, no guarding or rigidity. SPINE: No scoliosis or deformity SKIN: No rashes CENTRAL NERVOUS SYSTEM: No focal deficits, tone is normal in all 4 extremities. EXTREMITIES: There is no peripheral edema, clubbing, or cyanosis. Peripheral pulses are intact. Results - Laboratory Findings CBC and BMP: 10/02/24 00:38 10/02/24 00:38 PT/INR, D-dimer PT 10.6 sec (10.0-12.5) 10/02/24 00:38 INR 1.0 (<1.2) 10/02/24 00:38 Abnormal lab findings: Abnormal Labs 10/02/24 10/02/24 10/02/24 00:35 00:38 00:38 RBC 4.09 L Hgb 11.8 L Hct 34.5 L RDW 15.6 H Eosinophils # 1.5 H BUN 32 H Creatinine 1.31 H Glucose 123 H Calcium 12.2 H Ionized Calcium Mellisa 6.5 H* Total Protein 6.1 L - Diagnostic Findings Chest x-ray: image reviewed Assessment and Plan Assessment: Atypical chest pain, patient had recent admission for chest pain September 08 through September 10, and ACS was essentially ruled out. History of metastatic renal cell carcinoma with previous left nephrectomy; reportedly with metastasis to the sternum and lung. Patient also known to have mediastinal lymphadenopathy, including a 2 cm precarinal lymph node, which is being followed up on an outpatient basis. Hypercalcemia, with an ionized calcium of 6.5 mg/dL, possibly secondary to malignancy Chronic kidney disease stage IIIa History of previous left nephrectomy in 2017 Hypertension History of hyperlipidemia History nonobstructive coronary artery disease History of BPH Plan: Patient's medications, labs, chest x-ray reviewed No obvious acute cardiopulmonary process, no obvious nodularities or masses on chest x-ray Will order follow-up with CAT scan of the chest without contrast Currently on room air oxygen Other specialties consulted include: nephrology, cardiology We will also continue to follow I have personally seen and examined the patient, performed the documentation and the assessment and plan as written. Number of minutes spent on the visit:20 Time with Patient: Greater than 30
[2024-10-02] MEDS: amLODIPine 5 MG TAB PO SCH (09:11)
[2024-10-02] MEDS: ENOXAPARIN 40 MG/0.4 ML SYRINGE SQ SCH (09:12)
[2024-10-02 09:51] LABS: Chol/HDL Ratio 2.32 Ratio; LDL Cholesterol,Calculated 48.8 mg/dL (0.0-131.0)
--- NOTE | 2024-10-02 10:58 | P.NPCON ---
History of Present Illness - Reason for Consult chronic renal failure - History of Present Illness Reason for consultation: Chronic kidney disease History of present illness: Patient is 83-year-old male seen in renal consultation for chronic kidney disease. Patient was seen and examined in the emergency room. Patient has chronic kidney disease stage IIIb with baseline creatinine near 1.5 secondary to solitary right kidney and nephrosclerosis. Patient has history of renal cancer and has undergone left nephrectomy in the past. Patient states he follows with oncology outpatient and is maintained on monthly chemotherapy infusions. Patient came to the hospital because he developed chest discomfort and states his blood pressure was in the systolic 150s. GFR is at baseline. Denies any vomiting or diarrhea. Denies gross hematuria or dysuria. Patient's calcium level recently was 11.5 and he was scheduled to receive zoledronic acid outpatient but has not received so far. Calcium this admission is 12.2. Albumin 3.7. PTH appropriately suppressed at 9.1. Denies pain in his arm or jaw. Denies history of diabetes or coronary artery disease. Vital signs are stable. General: No acute distress. HEENT: Head exam is unremarkable. LUNGS: No audible rhonchi or wheezes. HEART: Rate and Rhythm are regular. ABDOMEN: Nontender. EXTREMITITES: No edema. Past Medical History Past Medical History: Coronary Artery Disease (CAD), Cancer, Chest Pain / Ang kelle, GERD/Reflux, Hyperlipidemia, Hypertension, Myocardial Infarction ([place]), Osteoarthritis (OA), Prostate Disorder, Renal Disease Additional Past Medical History / Comment(s): Recent upper respiratory tract infection, L renal cancer with nephrectomy/mets L lung and sternum/no longer taking oral chemo d/t it was affecting his kidney/states he receives infusion once a month but does not know what type of infusion last dose was 10/09/23, chronic renal failure stage IV, BPH, newsome's esophagus, gastritis, dry mouth, chronic low back pain, arthritis R great toe. Last Myocardial Infarction Date:: 02/29/20 History of Any Multi-Drug Resistant Organisms: None Reported Past Surgical History: Heart Catheterization, Orthopedic Surgery Additional Past Surgical History / Comment(s): Left nephrectomy 2015, RT HAND 2ND DIGIT LOST TOP OF FINGER IN CRUSHING INJURY, EGDs, colonoscopy, bilateral cataract removals/lens implants. Past Anesthesia/Blood Transfusion Reactions: No Reported Reaction Past Psychological History: Depression Smoking Status: Former smoker Past Alcohol Use History: Rare Past Drug Use History: Marijuana - Past Family History Father Family Medical History: Cancer, Hypertension, Myocardial Infarction ([place]) Additional Family Medical History / Comment(s): SKIN CANCER Mother Family Medical History: Cancer Additional Family Medical History / Comment(s): breast cancer - throat cancer Sister(s) Family Medical History: Cancer Additional Family Medical History / Comment(s): skin/breast and throat cancer Medications and Allergies Home Medications Medication Instructions Recorded Confirmed Type Tamsulosin HCl [Flomax] 0.4 mg PO HS 10/12/17 10/02/24 History amLODIPine [Norvasc] 5 mg PO BID 05/25/23 10/02/24 History Aspirin 81 mg PO HS 01/16/24 10/02/24 History Rosuvastatin Calcium [Crestor] 20 mg PO HS 09/08/24 10/02/24 History HYDROcodone/APAP 10-325MG [[place] 1 tab PO Q4HR PRN 10/02/24 10/02/24 History 10-325] Allergies Allergy/AdvReac Type Severity Reaction Status Date / Time atorvastatin calcium AdvReac JOINT PAIN Verified 10/02/24 07:48 [From Lipitor] clindamycin AdvReac JOINT PAIN Verified 10/02/24 07:48 Physical Exam Vitals: Vital Signs Temp Pulse Resp BP Pulse Ox 10/02/24 09:01 97.4 F L 80 18 163/86 97 10/02/24 05:44 73 18 126/71 97 10/02/24 02:06 74 16 159/95 97 10/02/24 00:09 98.2 F 86 18 155/79 97 Intake and Output 10/01/24 10/02/24 10/02/24 22:59 06:59 14:59 Other: Weight 55.338 kg Results - Lab Results Most recent lab results Calcium 12.2 mg/dL (8.4-10.2) H 10/02/24 00:38 Phosphorus 3.9 mg/dL (2.5-4.5) 10/02/24 07:39 Magnesium 2.0 mg/dL (1.6-2.3) 10/02/24 00:38 10/02/24 00:38 10/02/24 00:38 Assessment and Plan Plan: Assessment: 1. Chronic kidney disease stage IIIb with baseline creatinine near 1.5 secondary to solitary right kidney and nephrosclerosis. GFR at baseline. 2. Status post left nephrectomy. 3. 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 Follows with oncology outpatient. 4. Chest pain being followed by cardiology. 5. Hypertension with chronic kidney disease. 6. Hypercalcemia of malignancy. PTH appropriately suppressed. 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 Plan: Maintain IV fluids. Avoid calcium and vitamin D supplements. IV zoledronic acid x 1 dose today. 400 units IM calcitonin x 1 dose today. Consult oncology. Avoid nephrotoxins. Follow-up CT of chest and abdomen Thank you for the consultation. I will continue to follow the patient with you during his hospital stay.
--- NOTE | 2024-10-02 11:25 | CT ---
EXAMINATION TYPE: CT chest abdomen wo con DATE OF EXAM: 10/02/2024 10:41 AM COMPARISON: CT abdomen 03/30/2024 CLINICAL INDICATION: Male, 83 years old with history of chest pain; history of mediastinal adenopathy , f/u renal ca/ hypertension TECHNIQUE: Axial images at 5 mm thick sections. Reconstructed images in the coronal plane. Delayed images through the kidneys. Contrast used: mL of , (none if empty) Oral contrast used: without Oral Contrast (none if empty) CT DLP: 283.5 mGycm, Automated exposure control for dose reduction was used. FINDINGS: CT CHEST: Portion of the thyroid visualized is normal. No suspicious lung nodules or focal infiltrates are present. Some faint groundglass opacities are in the upper lung field. Tiny density may be in the posterior lateral right apex measuring 0.3 cm. The left There are multiple scattered lymph nodes present including adjacent to the aortic arch measuring up t o 1.0 cm, series 201 and image 23 pretracheal lymphadenopathy is present measuring up to 1.2 cm, imag e 25. No definite hilar adenopathy identified on this noncontrast study. The ascending aorta diameter at the level of the main pulmonary artery is 3.8 cm. The main pulmonary artery diameter at the bifurcation is 2.9 cm. Coronary artery calcifications present. CT ABDOMEN: Liver: Normal Spleen: Normal Pancreas: Normal Adrenal glands: The adrenal glands are normal. Gallbladder: Normal Kidneys: Left kidney is absent. No masses are evident. Mild right hydronephrosis is present. Hydroure ter is not identified. Differential diagnosis could include a peripelvic cyst. This area is stable fr om comparison There is a 1.8 cm cyst on the lateral inferior right kidney. No renal stones are ident ified. Aorta: Vascular calcification is within the aorta. Inferior vena cava: Normal. IMPRESSION: 1. There are somewhat prominent lymph nodes within the mediastinum. 2. Faint infiltrates in the right upper lung field. 3. No suspicious changes to suggest recurrent left renal masses. [facility], , 10/02/2024 11:23 AM
[2024-10-02] MEDS: ZOLEDRONIC ACID 4 MG in SODIUM CHLORIDE 0.9% 100 ML IV ONE (12:27)
[2024-10-02] MEDS: CALCITONIN INJ 200 UNIT/ML (MDV) VIAL IM ONE (12:28)
[2024-10-02] MEDS: ONDANSETRON 4 MG/2 ML VIAL IVP PRN (13:20)
--- NOTE | 2024-10-02 13:59 | P.CRDCN ---
History of Present Illness Consult date: 10/02/24 Consult reason: chest pain History of present illness: This is an 83-year-old male patient of Dr. Sultana with past medical history of coronary artery disease mild to moderate on cardiac catheterization performed 2019, TIA, hypertension, mixed hyperlipidemia, COPD, chronic kidney disease, history of kidney cancer with metastatic disease to the lung and sternum status post nephrectomy. We have been asked to evaluate the patient for chest pain. Patient states that he has terrible arthritis all over his body it has been coming and going getting worse over the past month or more. He also states he has a weight loss of 15 pounds recently. Patient has some minimal tenderness to palpation of the chest. Patient also concerned that his blood pressure was elevated which may be related to pain. Blood pressure 126/71, heart rate 73, pulse ox 97% on room air. Patient is seen today in the emergency center waiting for a bed on the cardiac stepdown unit. -EKG: Sinus rhythm with no acute ST-T wave changes. -Chest x-ray: Slightly prominent interstitial markings throughout both lungs suggesting mild emphysema. No new infiltrate -Laboratory studies: WBC 7.4, hemoglobin 9.8. Electrolytes are normal. BUN 32 creatinine 1.31. Glucose 123, calcium elevated at 12.2 and ionized calcium elevated at 6.5. Troponin negative x 1, BNP 168. -Home cardiac medications: Amlodipine 5 mg twice daily, aspirin 81 mg daily, Crestor 20 mg daily. -Echocardiogram performed 09/09/2024 reveals LVH with preserved systolic function. Thickened pericardium without effusion, mild biatrial enlargement. Review Of Systems: At the time of my exam: CONSTITUTIONAL: Denies fever or chills. Reports bilateral shoulder pain HEENT: Denies blurred vision, vision changes, or eye pain. Denies hemoptysis CARDIOVASCULAR: Reports chest pain. Denies orthopnea. Denies PND. Denies palpitations RESPIRATORY: Denies shortness of breath. GASTROINTESTINAL: Denies abdominal pain. Denies nausea or vomiting. HEMATOLOGIC: Denies bleeding disorders. GENITOURINARY: Denies any blood in urine. SKIN: Denies puritis. Denies rash. Physical examination: Gen: This is an 83-year-old male in no acute distress VS: reviewed HEENT: Head is atraumatic, normocephalic. Pupils equal, round. Sclerae is anicteric. NECK: Supple. No JVD. LUNGS: Clear to auscultation. No wheezes or rhonchi. No intercostal retractions. HEART: Regular rate and rhythm. No murmur. ABDOMEN: Soft No tenderness. EXTREMITIES: No pedal edema. No calf tenderness. NEUROLOGICAL: Patient is awake, alert and oriented x3. 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 Please reconsult for any new concerns. Patient may follow-up in the office in one to 2 weeks. Thank you kindly for this consultation. Nurse practitioner note has been reviewed, I agree with documented findings and plan of care. Patient was seen and examined. Past Medical History Past Medical History: Coronary Artery Disease (CAD), Cancer, Chest Pain / Angina, GERD/Reflux, Hyperlipidemia, Hypertension, Myocardial Infarction ([place]), Osteoarthritis (OA), Prostate Disorder, Renal Disease Additional Past Medical History / Comment(s): Recent upper respiratory tract i nfection, L renal cancer with nephrectomy/mets L lung and sternum/no longer taking oral chemo d/t it was affecting his kidney/states he receives infusion once a month but does not know what type of infusion last dose was 10/09/23, chronic renal failure stage IV, BPH, newsome's esophagus, gastritis, dry mouth, chronic low back pain, arthritis R great toe. Last Myocardial Infarction Date:: 02/29/20 History of Any Multi-Drug Resistant Organisms: None Reported Past Surgical History: Heart Catheterization, Orthopedic Surgery Additional Past Surgical History / Comment(s): Left nephrectomy 2016, RT HAND 2ND DIGIT LOST TOP OF FINGER IN CRUSHING INJURY, EGDs, colonoscopy, bilateral cataract removals/lens implants. Past Anesthesia/Blood Transfusion Reactions: No Reported Reaction Past Psychological History: Depression Smoking Status: Former smoker Past Alcohol Use History: Rare Past Drug Use History: Marijuana - Past Family History Father Family Medical History: Cancer, Hypertension, Myocardial Infarction ([place]) Additional Family Medical History / Comment(s): SKIN CANCER Mother Family Medical History: Cancer Additional Family Medical History / Comment(s): breast cancer - throat cancer Sister(s) Family Medical History: Cancer Additional Family Medical History / Comment(s): skin/breast and throat cancer Medications and Allergies Home Medications Medication Instructions Recorded Confirmed Type Tamsulosin HCl [Flomax] 0.4 mg PO HS 10/12/17 10/02/24 History amLODIPine [Norvasc] 5 mg PO BID 05/25/23 10/02/24 History Aspirin 81 mg PO HS 01/16/24 10/02/24 History Rosuvastatin Calcium [Crestor] 20 mg PO HS 09/08/24 10/02/24 History HYDROcodone/APAP 10-325MG [[place] 1 tab PO Q4HR PRN 10/02/24 10/02/24 History 10-325] Allergies Allergy/AdvReac Type Severity Reaction Status Date / Time atorvastatin calcium AdvReac JOINT PAIN Verified 10/02/24 07:48 [From Lipitor] clindamycin AdvReac JOINT PAIN Verified 10/02/24 07:48 Physical Exam Vitals: Vital Signs Temp Pulse Resp BP Pulse Ox 10/02/24 05:44 73 18 126/71 97 10/02/24 02:06 74 16 159/95 97 10/02/24 00:09 98.2 F 86 18 155/79 97 Intake and Output 10/01/24 10/02/24 10/02/24 22:59 06:59 14:59 Other: Weight 55.338 kg Results 10/02/24 00:38 10/02/24 00:38 Cardiac Enzymes 10/02/24 10/02/24 Range/Units 00:38 00:38 AST 20 (17-59) U/L Troponin I <0.012 (0.000-0.034) ng/mL Coagulation 10/02/24 Range/Units 00:38 PT 10.6 (10.0-12.5) sec APTT 22.9 (22.0-30.0) sec CBC 10/02/24 Range/Units 00:38 WBC 7.4 (3.8-10.6) k/uL RBC 4.09 L (4.30-5.90) m/uL Hgb 11.8 L (13.0-17.5) gm/dL Hct 34.5 L (39.0-53.0) % Plt Count 320 (150-450) k/uL Comprehensive Metabolic Panel 10/02/24 Range/Units 00:38 Sodium 137 (137-145) mmol/L Potassium 3.8 (3.5-5.1) mmol/L Chloride 103 (98-107) mmol/L Carbon Dioxide 29 (22-30) mmol/L BUN 32 H (9-20) mg/dL Creatinine 1.31 H (0.66-1.25) mg/dL Glucose 123 H (74-99) mg/dL Calcium 12.2 H (8.4-10.2) mg/dL AST 20 (17-59) U/L ALT 15 (4-49) U/L Alkaline Phosphatase 60 (38-126) U/L Total Protein 6.1 L (6.3-8.2) g/dL Albumin 3.7 (3.5-5.0) g/dL Current Medications Generic Name Dose Route Start Last Admin Trade Name Freq PRN Reason Stop Dose Admin Amlodipine Besylate 5 mg 10/02/24 09:00 Amlodipine 5 Mg Tab PO BID [facility] Aspirin 81 mg 10/02/24 21:00 Aspirin 81 Mg PO HS [facility] Enoxaparin Sodium 40 mg 10/02/24 09:00 Enoxaparin 40 Mg/0.4 Ml Syringe SQ DAILY [facility] Sodium Chloride 1,000 mls @ 75 mls/hr 10/02/24 01:30 10/02/24 01:45 Saline 0.9% IV 75 mls/hr .[id number] JAY JAY Administration Morphine Sulfate 4 mg 10/02/24 01:24 10/02/24 06:47 Morphine Sulfate 4 Mg/Ml Syringe IV 4 mg Q4HR PRN Administration Severe Pain (Scale 7 to 10) Naloxone HCl 0.2 mg 10/02/24 01:24 Naloxone 0.4 Mg/Ml 1 Ml Vial IV Q2M PRN Opioid Reversal Non-Formulary Medication 40 mg 10/02/24 21:00 Rosuvastatin Calcium [Crestor] PO HS [facility] Ondansetron HCl 4 mg 10/02/24 01:24 Ondansetron 4 Mg/2 Ml Vial IVP Q8HR PRN Nausea And Vomiting Tamsulosin HCl 0.4 mg 10/02/24 21:00 Tamsulosin 0.4 Mg Cap.Er.24h PO [facility] Intake and Output 10/01/24 10/02/24 10/02/24 22:59 06:59 14:59 Other: Weight 55.338 kg 10/02/24 00:38 10/02/24 00:38
--- NOTE | 2024-10-02 15:22 | P.PN ---
Subjective Progress Note Date: 10/02/24 Hospital course: Patient is an 83-year-old male with past medical history of coronary artery disease (status post negative stress test in December 2023 and recent echo in 09/10 with ejection fraction of 50 to 55%), GERD, hyperlipidemia, hypertension, osteoarthritis, history of left renal cancer (status post left nephrectomy in 2016) 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 Bhatt including hypercalcemia. Patient states he also had high blood pressure readings at home of 150s over 90s. He currently endorses left-sided chest pain without radiation suspects it is due to his arthritis. Patient states he took his blood pressure medications today before coming to the hospital. Patient states he has a history of mini stroke last year, but denies use of blood thinners besides aspirin. Patient also endorses a decreased appetite the last week or so and states he has not been drinking enough water. He denies headaches, vision changes, lower extremity swelling, abdominal pain, fevers, chills, nausea, vomiting, diarrhea ED documentation reviewed. In the ED patient was treated with a fluid bolus. Vitals on admission temperature 98.2, heart rate is 86 bpm, respiratory rate 18, blood pressure 155/79, O2 saturation 97% on room air. EKG independently interpreted as sinus rhythm with vent with a rate of 77 bpm and QTc of 384 ms with no acute ST-T wave changes. CXR interpreted independently as no acute cardiopulmonary process Labs on admission show the 7.4, hemoglobin 11.8, platelets 320. PT 10.6, INR 1, PTT 22.9. Sodium 137, testing 3.8, chloride 103, bicarb 29, BUN 32, creatinine 1.31, glucose 123. Calcium 12.2, ionized calcium 6.5. Magnesium 2. LFTs within normal limits. Troponin negative. NT proBNP 168. Lipase 191. Subjective: 10/02/2024: Patient seen and evaluated bedside. No acute events overnight. No acute complaints. Patient denies any nausea, vomiting, confusion, chest pain, urinary symptoms, muscle weakness. Patient states he has chronic pain all over his body. Pertinent positives and negatives as discussed above, a complete review of systems was performed and all other systems are negative. Vitals: Signs Reviewed Physical Exam: General: nontoxic, no distress, appears at stated age Derm: warm, dry, intact Head: atraumatic, normocephalic, symmetric Eyes: EOMI, anicteric sclera Mouth: no lip lesion, mucus membranes moist Cardiovascular: S1 S2 reg, no murmur, rubs, or gallops Lungs: CTA bilateral, no rhonchi, no rales, no accessory muscle use Abdominal: soft, non-tender to palpataion, no appreciable organomegaly Extremities: no gross muscle atrophy, no edema, no contractures Neuro: Alert, Oriented, CNII-XII grossly intact, gait normal Psych: well appearing, appropriate affect Data Received Today: Pertinent Labs: PTH 9.1, troponin <0.012, calcium 12.2, ionized calcium 6.5, WBC 7.4, Hgb 11.8, BUN 32, creatinine 1.31, magnesium 2.0, proBNP 168, lipase 20 Imaging: CT chest/abdomen without contrast displays somewhat prominent lymph nodes within the mediastinum, being ill for traits of the right upper lung field, no suspicious changes suggest current left renal masses, no suspicious lung nodule or focal infiltrates present Assessment and Plan: Patient is a 83-year-old male with past medical history of CAD, GERD, hyperlipidemia, hypertension, osteoarthritis, history of renal cancer with metastasis, CKD stage IIIa, BPH, history of [place] and chronic low back pain who presented to the ED due to abnormal labs, elevated blood pressure, and chest pain. Active: Atypical chest pain, rule out ACS Troponin negative Trend troponin every 3 hours x 2 Recent echo from 09/10 shows EF of 50 to 55% Continue aspirin 81 mg po daily Continue Crestor 40 mg p.o. at bedtime station master Lipid panel , A1C Morphine 4 mg IV push every 4 hours as needed Zofran 4 mg IV push every 8 hours as needed Cardiology signing off. No further cardiac workup at this time Hypercalcemia, possibly secondary to malignancy Calcium 12.2, ionized calcium 6.5 Nephrology following, note read. IV zoledronic acid once today 400 units IM calcitonin once per nephrology PTH 9.1 Vitamin D 25 hydroxy, vitamin D 1, 25 dihydroxy, PTHrp ordered Chronic: CKD stage IIIA at baseline BUN 32, creatinine 1.31, GFR 51 Continue to monitor Consult nephrology BPH Continue Flomax 0.4 mg p.o. at bedtime Hypertension Continue amlodipine 5 mg twice daily Hyperlipidemia Increased Crestor to 40 mg p.o. at bedtime Resolved: Suspected pulmonary nodules F: Normal saline at 75 mL/h E: Replete as needed N: Heart healthy A: Patient ambulates independently at baseline DVT ppx: Lovenox 40 mg SQ daily, calculated creatinine clearance of 34 Code status: Full code Anticipated discharge place: Pending clinical course Anticipated discharge time: Pending clinical course Abdiel Thompson MD PGY-1 IM Dictation was produced using [employer] dictation software. please excuse any gramma tical, word or spelling errors. I have seen and evaluated the patient today. Discussed with the resident and agree with the residents finding and plan as documented in the resident's note. Changes highlighted in blue font. Objective - Vital Signs Vital signs: Vital Signs Temp 98.2 F 10/02/24 00:09 Pulse 73 10/02/24 05:44 Resp 18 10/02/24 05:44 BP 126/71 10/02/24 05:44 Pulse Ox 97 10/02/24 05:44 FiO2 Intake & Output 10/01/24 10/02/24 10/02/24 18:59 06:59 18:59 Weight 55.338 kg - Labs CBC & Chem 7: 10/02/24 00:38 10/02/24 00:38 Labs: Abnormal Lab Results - Last 24 Hours (Table) 10/02/24 10/02/24 10/02/24 Range/Units 00:35 00:38 00:38 RBC 4.09 L (4.30-5.90) m/uL Hgb 11.8 L (13.0-17.5) gm/dL Hct 34.5 L (39.0-53.0) % RDW 15.6 H (11.5-15.5) % Eosinophils # 1.5 H (0-0.7) k/uL BUN 32 H (9-20) mg/dL Creatinine 1.31 H (0.66-1.25) mg/dL Glucose 123 H (74-99) mg/dL Calcium 12.2 H (8.4-10.2) mg/dL Ionized Calcium Mellisa 6.5 H* (4.5-5.3) mg/dL Total Protein 6.1 L (6.3-8.2) g/dL
[2024-10-02] MEDS: ASPIRIN 81 MG PO SCH (20:41)
[2024-10-02] MEDS: TAMSULOSIN 0.4 MG CAP.ER.24H PO SCH (20:41)
[2024-10-02] MEDS ORDERED: NON FORMULARY DRUG (Rosuvastatin Calcium [Crestor] 40 MG Tablet) PO SCH (21:00)
[2024-10-02] MEDS: NON FORMULARY DRUG (Rosuvastatin Calcium [Crestor] 40 MG) PO SCH (21:17)
--- NOTE | 2024-10-03 08:31 | P.CONS ---
History of Present Illness - Reason for Consult Consult date: 10/02/24 hypercalcemia Requesting physician: Liliam Blake - Chief Complaint HTN, worsening renal function - History of Present Illness Mr. Mckeon is a pleasant male pt of Dr. Mcneal with a Hx of RCC, diagnosed in early 2015. 11/25/[address] AP without contrast done for abdominal pain. This revealed enlargement of the left kidney with possible mass in the superior pole. There was also a possibility of thrombus in the renal vein. MRI on 01/27/16 showed a heterogenous enhancing mass, 3.2 x 3.8 x 3.2 cm in the upper to mid pole level left kidney. There appeared to be a renal vein thrombus. CT chest on 02/29/16 was negative for evidence of metastasis. He had a left nephrectomy at the [facility] in 04/03. He was placed on surveillance and states that his next scan in [place]/ showed metastasis to the sternum and the lungs. However he has not been started on treatment yet. He had a follow up scans in 02/01 and was told that there was progression. Due to proximity, he decided to see our practice locally. Records were ultimately obtained from the [place], confirming metastatic RCC. He was started on Votrient in 04/03 with dose reduction and multiple holds due to SE. He did well until 01/2020, SE were too much and there was an increase in sternal lesion so, he was switched to cabometyx. A few mo later he had CA, was not certain if 2/2 to cabometyx but it is a VEGF inhibitor so, treatment was changed to opdivo and has been on since-52 cycles. He was seen 09/27/24 for treatment f/u imaging -stable disease on CT CAP 08/26/25, [place] bone scan was done for questionable findings, no evidence of disease progression. Ca++ was 10.5 and Cr was 1.7. Patient seen in the ER. We are consulted because of hypercalcemia. Calcium level 12.2. Patient states he had recently seen his [facility]ist, was going to be receiving Zometa infusion outpatient. He was also instructed to monitor his blood pressure. Patient states he came into the hospital because of elevating blood pressure. He denied fevers chills, nausea, vomiting, he has the sternal pain from the bone mets but, he denies any cardiac type chest pain, no abdominal pain or cramping, diarrhea or constipation. He denies muscle cramping, family is not reporting any confusion. Review of Systems 10 point ROS is neg except as stated in HPI Past Medical History Past Medical History: Coronary Artery Disease (CAD), Cancer, Chest Pain / Angina, GERD/Reflux, Hyperlipidemia, Hypertension, Myocardial Infarction ([place]), Osteoarthritis ([place]), Prostate Disorder, Renal Disease Additional Past Medical History / Comment(s): Recent upper respiratory tract infection, L renal cancer with nephrectomy/mets L lung and sternum/no longer taking oral chemo d/t it was affecting his kidney/states he receives infusion o nce a month but does not know what type of infusion last dose was 10/09/23, chronic renal failure stage IV, BPH, newsome's esophagus, gastritis, dry mouth, chronic low back pain, arthritis R great toe. Last Myocardial Infarction Date:: 02/29/20 History of Any Multi-Drug Resistant Organisms: None Reported Past Surgical History: Heart Catheterization, Orthopedic Surgery Additional Past Surgical History / Comment(s): Left nephrectomy 2015, RT HAND 2ND DIGIT LOST TOP OF FINGER IN CRUSHING INJURY, EGDs, colonoscopy, bilateral cataract removals/lens implants. Past Anesthesia/Blood Transfusion Reactions: No Reported Reaction Past Psychological History: Depression Smoking Status: Former smoker Past Alcohol Use History: Rare Past Drug Use History: Marijuana - Past Family History Father Family Medical History: Cancer, Hypertension, Myocardial Infarction ([place]) Additional Family Medical History / Comment(s): SKIN CANCER Mother Family Medical History: Cancer Additional Family Medical History / Comment(s): breast cancer - throat cancer Sister(s) Family Medical History: Cancer Additional Family Medical History / Comment(s): skin/breast and throat cancer Medications and Allergies Home Medications Medication Instructions Recorded Confirmed Type Tamsulosin HCl [Flomax] 0.4 mg PO HS 10/12/17 10/02/24 History amLODIPine [Norvasc] 5 mg PO BID 05/25/23 10/02/24 History Aspirin 81 mg PO HS 01/16/24 10/02/24 History Rosuvastatin Calcium [Crestor] 20 mg PO HS 09/08/24 10/02/24 History HYDROcodone/APAP 10-325MG [[place] 1 tab PO Q4HR PRN 10/02/24 10/02/24 History 10-325] Allergies Allergy/AdvReac Type Severity Reaction Status Date / Time atorvastatin calcium AdvReac JOINT PAIN Verified 10/02/24 07:48 [From Lipitor] clindamycin AdvReac JOINT PAIN Verified 10/02/24 07:48 Physical Exam Vitals: Vital Signs Temp Pulse Resp BP Pulse Ox 10/02/24 12:23 77 18 136/73 96 10/02/24 09:01 97.4 F L 80 18 163/86 97 10/02/24 05:44 73 18 126/71 97 10/02/24 02:06 74 16 159/95 97 10/02/24 00:09 98.2 F 86 18 155/79 97 Intake and Output 10/01/24 10/02/24 10/02/24 22:59 06:59 14:59 Other: Weight 55.338 kg - Constitutional General appearance: average body habitus, cooperative, no acute distress - EENT dry mucus membranes Eyes: anicteric sclerae, EOMI ENT: hearing grossly normal - Neck Neck: no lymphadenopathy - Respiratory Respiratory: bilateral: CTA - Cardiovascular Rhythm: regular Heart sounds: normal: S1, S2 Abnormal Heart Sounds: no systolic murmur, no diastolic murmur, no rub, no S3 Gallop, no S4 Gallop, no click, no other leg Peripheral Edema: bilateral: None - Gastrointestinal General gastrointestinal: no absent bowel sounds, no decreased bowel sounds, no distended, no hepatomegaly, no hyperactive bowel sounds, normal bowel sounds, no organomegaly, no rigid, no scaphoid, soft, no splenomegaly, no tenderness, no umbilical hernia, no ventral hernia - Integumentary Integumentary: normal - Neurologic Neurologic: CNII-XII intact - Musculoskeletal Musculoskeletal: strength equal bilaterally - Psychiatric Psychiatric: A&O x's 3, appropriate affect, intact judgment & insight Results CBC & Chem 7: 10/02/24 00:38 10/02/24 00:38 Labs: Abnormal Lab Results - Last 24 Hours (Table) 10/02/24 10/02/24 10/02/24 Range/Units 00:35 00:38 00:38 RBC 4.09 L (4.30-5.90) m/uL Hgb 11.8 L (13.0-17.5) gm/dL Hct 34.5 L (39.0-53.0) % RDW 15.6 H (11.5-15.5) % Eosinophils # 1.5 H (0-0.7) k/uL BUN 32 H (9-20) mg/dL Creatinine 1.31 H (0.66-1.25) mg/dL Glucose 123 H (74-99) mg/dL Calcium 12.2 H (8.4-10.2) mg/dL Ionized Calcium Mellisa 6.5 H* (4.5-5.3) mg/dL Total Protein 6.1 L (6.3-8.2) g/dL PTH Intact (14.0-72.0) pg/mL 10/02/24 Range/Units 04:09 RBC (4.30-5.90) m/uL Hgb (13.0-17.5) gm/dL Hct (39.0-53.0) % RDW (11.5-15.5) % Eosinophils # (0-0.7) k/uL BUN (9-20) mg/dL Creatinine (0.66-1.25) mg/dL Glucose (74-99) mg/dL Calcium (8.4-10.2) mg/dL Ionized Calcium Mellisa (4.5-5.3) mg/dL Total Protein (6.3-8.2) g/dL PTH Intact 9.1 L (14.0-72.0) pg/mL Chest x-ray: report reviewed CT scan - abdomen: report reviewed CT scan - pelvis: report reviewed Assessment and Plan (1) Hypercalcemia Current Visit: Yes Status: Acute Code(s): E83.52 - HYPERCALCEMIA SNOMED Code(s): 22717464 (2) History of renal cell cancer Current Visit: Yes Status: Acute Code(s): Z85.528 - PERSONAL HISTORY OF OTHER MALIGNANT NEOPLASM OF KIDNEY SNOMED Code(s): 32128588187822 Plan: Hypercalcemia -Rapid new onset. Parathyroid hormone was low, suspicious for malignant process. Differentials include paraneoplastic syndrome, other malignant process, hormonal aberration 2/2 immunotherapy. -No gross findings on recent nuclear medicine bone scan or CT CAP to suggest progressive metastases from RCC. -Multiple myeloma workup ordered -Nephrology consulted -1 dose of aredia 30 mg ordered for hypercalcemia. Fluids. -Ongoing work up Metastatic renal cell carcinoma -Diagnosis and treatment as documented in HPI -Patient has done well on immunotherapy for several years now. -Treatment for the same will be discussed once patient's acute condition has been resolved and underlying cause defined.
[2024-10-03 09:09] LABS: Eosinophils # (A) 0.82 X 10*3/uL (0.04-0.35); Eosinophils % (A) 8.1 %; HCT 35.3 % (39.6-50.0); Lymphocytes # (A) 1.24 X 10*3/uL (0.90-5.00); Lymphocytes % (A) 12.2 %; MCH 27.3 pg (27.0-32.0); MCHC 31.2 g/dL (32.0-37.0); MCV 87.6 FL (80.0-97.0); Mean Platelet Volume 11.4 FL (9.5-12.2); Monocytes # (A) 1.21 X 10*3/uL (0.20-1.00); Monocytes % (A) 11.9 %; NRBC Per 100 WBC 0 X 10*3/uL (0.00-0.01); Neutrophils # (A) 6.76 X 10*3/uL (1.80-7.70); Neutrophils % (A) 66.4 %; Platelet Count 322 X 10*3/uL (140-440); RBC 4.03 X 10*6/uL (4.40-5.60); RDW 16.6 % (11.5-14.5); WBC 10.17 X 10*3/uL (4.50-10.00)
[2024-10-03 09:37] LABS: ALT 11 U/L (10-49); AST 18 U/L (14-35); Albumin 3.2 g/dL (3.8-4.9); Alkaline Phosphatase 69 U/L (41-126); BUN/Creat Ratio 13.08 Ratio (12.00-20.00); Calcium 9.4 mg/dL (8.7-10.3); Carbon Dioxide 22.5 mmol/L (21.6-31.8); Chloride 109 mmol/L (96-109); Glucose 91 mg/dL (70-110); Magnesium 1.8 mg/dL (1.5-2.4); Phosphorus 2.7 mg/dL (2.4-5.1); Potassium 3.7 mmol/L (3.5-5.5); Sodium 141 mmol/L (135-145); Total Bilirubin 0.3 mg/dL (0.3-1.2); Total Protein 5.2 g/dL (6.2-8.2)
--- NOTE | 2024-10-03 10:48 | P.PN ---
Subjective Patient is seen in follow-up for chronic kidney disease. Renal function stable. Calcium level improved. Hemodynamically stable. Admits to good urine output. Vital signs are stable. General: No acute distress. HEENT: Head exam is unremarkable. LUNGS: No audible rhonchi or wheezes. HEART: Rate and Rhythm are regular. ABDOMEN: Nontender. EXTREMITITES: No edema. Objective - Vital Signs Vital signs: Vital Signs Temp 98.2 F 10/03/24 08:20 Pulse 84 10/03/24 08:20 Resp 16 10/03/24 08:20 BP 144/70 10/03/24 08:20 Pulse Ox 95 10/03/24 08:20 FiO2 Intake & Output 10/02/24 10/03/24 10/03/24 18:59 06:59 18:59 Intake Total 300 Output Total 50 Balance 250 Weight 55.5 kg Intake: Oral 300 Output: Urine 50 Other: Voiding Method Urinal - Labs CBC & Chem 7: 10/03/24 06:12 10/03/24 06:12 Labs: Abnormal Lab Results - Last 24 Hours (Table) 10/02/24 10/03/24 10/03/24 Range/Units 10:53 06:12 06:12 WBC 10.17 H (4.50-10.00) X 10*3/uL RBC 4.03 L (4.40-5.60) X 10*6/uL Hgb 11.0 L (13.0-17.0) g/dL Hct 35.3 L (39.6-50.0) % MCHC 31.2 L (32.0-37.0) g/dL RDW 16.6 H (11.5-14.5) % Monocytes # 1.21 H (0.20-1.00) X 10*3/uL Eosinophils # 0.82 H (0.04-0.35) X 10*3/uL Est GFR (CKD-EPI) 55 L (>=60) Total Protein 5.2 L (6.2-8.2) g/dL Albumin 3.2 L (3.8-4.9) g/dL Vitamin D 25-Hydroxy 23.5 L (30.0-100.0) ng/mL Assessment and Plan Plan: Assessment: 1. Chronic kidney disease stage IIIb with baseline creatinine near 1.5 secondary to solitary right kidney and nephrosclerosis. GFR at baseline. 2. Status post left nephrectomy. 3. 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 Follows with oncology outpatient. CT scan showed prominent lymph nodes within the mediastinum. 4. Chest pain being followed by cardiology. 5. Hypertension with chronic kidney disease. Stable. 6. Hypercalcemia of malignancy. PTH appropriately suppressed. Vitamin D 23.5. 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 Status post IM calcitonin and zoledronic acid given October 02, 2024. Calcium level improved. 7. Mild right hydronephrosis and a solitary kidney. Urology consulted. Plan: Maintain IV fluids. Decrease rate to 50 cc an hour. Avoid calcium and vitamin D supplements. Oncology following. Avoid nephrotoxins.
--- NOTE | 2024-10-03 12:23 | P.PN ---
Subjective Progress Note Date: 10/03/24 Patient is an 84-year-old male with past medical history significant for metastatic renal cell carcinoma with previous left nephrectomy, chronic kidney disease, hypertension, hyperlipidemia, nonobstructive coronary artery disease, BPH, COPD, among other things. Patient states history of kidney cancer that metastasized to lung and sternum. Originally, diagnosed back in 2016, and since had left-sided nephrectomy. Has recently seen Dr. Figueroa in the pulmonary office for some enlarged mediastinal lymphadenopathy. Had a CT of the chest, abdomen and pelvis at [facility] 05/28/2024. Report faxed over to the pulmonary office, from outside facility, describes tiny groundglass opacities involving left upper lobe measuring 9 mm, unchanged from prior examination. Enlarged lymph node seen in the precarinal region measuring 2 cm. Osteolytic changes to the proximal sternum, surgically absent left kidney. Right renal cortical and parapelvic cysts. He follows with his established oncol ogist Dr. Mcneal. Reportedly undergoes infusions every 4 weeks, unable to recall the medication. Patient did have a recent hospitalization for chest pain, September 08 through . He was worked up for ACS, which was essentially ruled out. Also, had a negative dobutamine stress test Jan, 2024. Patient returns with the chief complaint of chest pain. Pulmonary was consulted for the patient's history of pulmonary nodules. Chest x-ray done on admission showing hyperinflation and flattening of the diaphragm consistent with COPD. No obvious nodularities or masses. CBC: WBC count 7.4, hemoglobin 11.8, hematocrit 34.5, platelets 320. CMP: Sodium 137, potassium 3.8, chloride 103, serum bicarb 29, BUN 32, creatinine 1.31, glucose 123, sinus calcium 6.5. Troponin less than 0.012. NT proBNP 168. EKG: Normal sinus rhythm, rate 77 bpm, no acute ischemic changes. Normal sinus infusing at 75 mL/h. Most recent vital signs: Afebrile, heart rate 86 bpm, respiratory rate 18, blood pressure 155/79 mmHg, SpO2 is 97% on room air. Patient currently being evaluated emergency department, room 10. He is lying in bed on room air in no acute distress. He is describing left upper anterior nonradiating chest pain. Localized just below the medial clavicle. Continuous in nature. Currently rated 5 on a 10 point numerical scale. He just recently received some pain medication. Not particularly worse with palpation nor position changes. Denies shortness of breath, cough, sputum production, hemoptysis, fever/chills. Does report poor appetite and further weight loss, however, unable to quantify. Denies any trouble swallowing or dysphagia. No stridor. Denies any new masses or enlarged lymph nodes. The patient is seen today October 03, 2024 in follow-up on the regular medical floor. He is sitting up in bed. Awake and alert in no acute distress. Denies any worsening shortness of breath, cough or congestion. He is maintaining good O2 saturation in the 90s on room air. He has some chest wall pain. Some arthritic type pain. He is receiving normal saline at 75 mL/h. White count 1 0.1. Hemoglobin 11.0. Platelets 322. Sodium 141. Potassium 3.7. Bicarb 23. BUN 17. Creatinine 1.3. Glucose 91. He remains on Lovenox for DVT prophylaxis. Objective - Vital Signs Vital signs: Vital Signs Temp 98.2 F 10/03/24 08:20 Pulse 84 10/03/24 08:20 Resp 16 10/03/24 08:20 BP 144/70 10/03/24 08:20 Pulse Ox 95 10/03/24 08:20 FiO2 Intake & Output 10/02/24 10/03/24 10/03/24 18:59 06:59 18:59 Intake Total 300 Output Total 50 Balance 250 Weight 55.5 kg Intake: Oral 300 Output: Urine 50 Other: Voiding Method Urinal - Exam GENERAL EXAM: Alert, pleasant 83-year-old male, laying in bed, in no apparent distress. HEAD: Normocephalic and atraumatic EYES: Normal reaction of pupils, equal size. NOSE: Clear with pink turbinates. THROAT: No erythema or exudates. NECK: No masses, no JVD. No stridor. CHEST: No chest wall deformity. LUNGS: Equal air entry with no crackles, wheeze, rhonchi or dullness. On room air. CVS: S1 and S2 normal with no audible murmur, regular rhythm. No extra heart sounds ABDOMEN: No hepatosplenomegaly, active bowel sounds, no guarding or rigidity. SPINE: No scoliosis or deformity SKIN: No rashes CENTRAL NERVOUS SYSTEM: No focal deficits, tone is normal in all 4 extremities. EXTREMITIES: There is no peripheral edema, clubbing, or cyanosis. Peripheral pulses are intact. - Labs CBC & Chem 7: 10/03/24 06:12 10/03/24 06:12 Labs: Abnormal Lab Results - Last 24 Hours (Table) 10/02/24 10/03/24 10/03/24 Range/Units 10:53 06:12 06:12 WBC 10.17 H (4.50-10.00) X 10*3/uL RBC 4.03 L (4.40-5.60) X 10*6/uL Hgb 11.0 L (13.0-17.0) g/dL Hct 35.3 L (39.6-50.0) % MCHC 31.2 L (32.0-37.0) g/dL RDW 16.6 H (11.5-14.5) % Monocytes # 1.21 H (0.20-1.00) X 10*3/uL Eosinophils # 0.82 H (0.04-0.35) X 10*3/uL Est GFR (CKD-EPI) 55 L (>=60) Total Protein 5.2 L (6.2-8.2) g/dL Albumin 3.2 L (3.8-4.9) g/dL Vitamin D 25-Hydroxy 23.5 L (30.0-100.0) ng/mL Assessment and Plan Assessment: Atypical chest pain, patient had recent admission for chest pain September 08 through September 10, and ACS was essentially ruled out History of metastatic renal cell carcinoma with previous left nephrectomy; reportedly with metastasis to the sternum and lung. Patient also known to have mediastinal lymphadenopathy, including a 2 cm precarinal lymph node, which is being followed up on an outpatient basis Hypercalcemia, with an ionized calcium of 6.5 mg/dL, possibly secondary to malignancy Chronic kidney disease stage IIIa History of previous left nephrectomy in 2017 Hypertension History of hyperlipidemia History nonobstructive coronary artery disease History of BPH Plan: The patient was seen and evaluated Labs and medications reviewed Stable and on room air Cleared for discharge Follow-up in our office as scheduled I have personally seen and examined the patient, performed the documentation and the assessment and plan as written. Number of minutes spent on the visit: 10 Dictation was produced using [employer] software. Please excuse any grammatical, word or spelling errors.
--- NOTE | 2024-10-03 14:47 | P.GSCN ---
History of Present Illness Consult date: 10/03/24 Reason for Consult: Right hydronephrosis History of present illness: This is a 83-year-old male with a history of a solitary kidney secondary to left nephrectomy which was done approximately 10 years ago. Patient indicated nephrectomy was done over at the [facility] for renal cell carcinoma. Subsequently he did develop metastatic renal cell carcinoma. Urology is consulted for incidental finding of right-sided hydronephrosis on CT chest and abdomen. This is a new finding as he had a CT done back in March which showed no evidence of hydronephrosis. Denies any flank pain, gross hematuria or dysuria. He denies any voiding dysfunction at baseline. He does have previous history of kidney stone which he has passed spontaneously. His creatinine is at 1.3 which is at his baseline. Review of Systems - Constitutional Denies chills, Denies fever - Cardiovascular Denies chest pain, Denies shortness of breath - Respiratory Denies cough, Denies 7 - Gastrointestinal Reports as per HPI - Genitourinary Denies dysuria, Denies hematuria Past Medical History Past Medical History: Coronary Artery Disease (CAD), Cancer, Chest Pain / Angina, GERD/Reflux, Hyperlipidemia, Hypertension, Myocardial Infarction (SC), Osteoarthritis (OA), Prostate Disorder, Renal Disease Additional Past Medical History / Comment(s): Recent upper respiratory tract infection, L renal cancer with nephrectomy/mets L lung and sternum/no longer taking oral chemo d/t it was affecting his kidney/states he receives infusion once a month but does not know what type of infusion last dose was 10/09/23, chronic renal failure stage IV, BPH, newsome's esophagus, gastritis, dry mouth, chronic low back pain, arthritis R great toe. Last Myocardial Infarction Date:: 02/29/20 History of Any Multi-Drug Resistant Organisms: None Reported Past Surgical History: Heart Catheterization, Orthopedic Surgery Additional Past Surgical History / Comment(s): Left nephrectomy 2016, RT HAND 2ND DIGIT LOST TOP OF FINGER IN CRUSHING INJURY, EGDs, colonoscopy, bilateral cataract removals/lens implants. Past Anesthesia/Blood Transfusion Reactions: No Reported Reaction Past Psychological History: Depression Smoking Status: Former smoker Past Alcohol Use History: Rare Past Drug Use History: Marijuana - Past Family History Father Family Medical History: Cancer, Hypertension, Myocardial Infarction (SC) Additional Family Medical History / Comment(s): SKIN CANCER Mother Family Medical History: Cancer Additional Family Medical History / Comment(s): breast cancer - throat cancer Sister(s) Family Medical History: Cancer Additional Family Medical History / Comment(s): skin/breast and throat cancer Medications and Allergies Home Medications Medication Instructions Recorded Confirmed Type Tamsulosin HCl [Flomax] 0.4 mg PO HS 10/12/17 10/02/24 History amLODIPine [Norvasc] 5 mg PO BID 05/25/23 10/02/24 History Aspirin 81 mg PO HS 01/16/24 10/02/24 History Rosuvastatin Calcium [Crestor] 20 mg PO HS 09/08/24 10/02/24 History HYDROcodone/APAP 10-325MG [Guffey 1 tab PO Q4HR PRN 10/02/24 10/02/24 History 10-325] Allergies Allergy/AdvReac Type Severity Reaction Status Date / Time atorvastatin calcium AdvReac JOINT PAIN Verified 10/02/24 07:48 [From Lipitor] clindamycin AdvReac JOINT PAIN Verified 10/02/24 07:48 Surgical - Exam Vital Signs Temp Pulse Resp BP Pulse Ox 98.2 F 86 18 155/79 97 10/02/24 00:09 10/02/24 00:09 10/02/24 00:09 10/02/24 00:09 10/02/24 00:09 - General no distress, no pain - Eyes normal ocular movement, no pale - ENT normal nares, normal mucosa - Respiratory normal expansion, normal respiratory effort - Abdomen Abdomen: soft, non tender - Psychiatric oriented to time, oriented to person, oriented to place Results - Labs 10/03/24 06:12 10/03/24 06:12 Abnormal Lab Results - Last 24 Hours (Table) 10/02/24 10/03/24 10/03/24 Range/Units 10:53 06:12 06:12 WBC 10.17 H (4.50-10.00) X 10*3/uL RBC 4.03 L (4.40-5.60) X 10*6/uL Hgb 11.0 L (13.0-17.0) g/dL Hct 35.3 L (39.6-50.0) % MCHC 31.2 L (32.0-37.0) g/dL RDW 16.6 H (11.5-14.5) % Monocytes # 1.21 H (0.20-1.00) X 10*3/uL Eosinophils # 0.82 H (0.04-0.35) X 10*3/uL Est GFR (CKD-EPI) 55 L (>=60) Total Protein 5.2 L (6.2-8.2) g/dL Albumin 3.2 L (3.8-4.9) g/dL Vitamin D 25-Hydroxy 23.5 L (30.0-100.0) ng/mL Diabetes panel 10/03/24 Range/Units 06:12 Sodium 141 (135-145) mmol/L Potassium 3.7 (3.5-5.5) mmol/L Chloride 109 (96-109) mmol/L Carbon Dioxide 22.5 (21.6-31.8) mmol/L BUN 17.0 (9.0-27.0) mg/dL Creatinine 1.3 (0.6-1.5) mg/dL Glucose 91 (70-110) mg/dL Calcium 9.4 (8.7-10.3) mg/dL AST 18 (14-35) U/L ALT 11 (10-49) U/L Alkaline Phosphatase 69 (41-126) U/L Total Protein 5.2 L (6.2-8.2) g/dL Albumin 3.2 L (3.8-4.9) g/dL Calcium panel 10/03/24 10/03/24 Range/Units 06:12 10:15 Calcium 9.4 (8.7-10.3) mg/dL Ionized Calcium Mellisa 5.3 (4.5-5.3) mg/dL Phosphorus 2.7 (2.4-5.1) mg/dL Albumin 3.2 L (3.8-4.9) g/dL Pituitary panel 10/03/24 Range/Units 06:12 Sodium 141 (135-145) mmol/L Potassium 3.7 (3.5-5.5) mmol/L Chloride 109 (96-109) mmol/L Carbon Dioxide 22.5 (21.6-31.8) mmol/L BUN 17.0 (9.0-27.0) mg/dL Creatinine 1.3 (0.6-1.5) mg/dL Glucose 91 (70-110) mg/dL Calcium 9.4 (8.7-10.3) mg/dL Adrenal panel 10/03/24 Range/Units 06:12 Sodium 141 (135-145) mmol/L Potassium 3.7 (3.5-5.5) mmol/L Chloride 109 (96-109) mmol/L Carbon Dioxide 22.5 (21.6-31.8) mmol/L BUN 17.0 (9.0-27.0) mg/dL Creatinine 1.3 (0.6-1.5) mg/dL Glucose 91 (70-110) mg/dL Calcium 9.4 (8.7-10.3) mg/dL Total Bilirubin 0.3 (0.3-1.2) mg/dL AST 18 (14-35) U/L ALT 11 (10-49) U/L Alkaline Phosphatase 69 (41-126) U/L Total Protein 5.2 L (6.2-8.2) g/dL Albumin 3.2 L (3.8-4.9) g/dL Assessment and Plan Assessment: 83-year-old male with history of solitary kidney secondary to left nephrectomy for renal cell carcinoma. Urologist consulted for new finding of hydronephrosis this is new compared to the CT scan from March 2024. Of note the CT was of abdomen and chest the pelvis was not evaluated. At this time I recommend obtaining a CT abdomen and pelvis to rule out distal ureteral stone as the cause, also upcoming obtaining a bladder scan to rule out retention as a cause of hydronephrosis. Creatinine is at baseline, at this point there is no need for a stent, but given the solitary kidney I do recommend further evaluation of the hydronephrosis -CT abdomen pelvis -Bladder scan to rule out retention
[2024-10-03 15:14] LABS: Protein, Total 5.4 g/dL (6.2-8.2)
--- NOTE | 2024-10-03 15:31 | CT ---
EXAMINATION TYPE: CT renal stones wo con DATE OF EXAM: 10/03/2024 COMPARISON: 03/30/2024 CLINICAL INDICATION: Male, 83 years old with history of Hydronephrosis; PHH, Hydronephrosis. TECHNIQUE: CT scan of the abdomen and pelvis is performed without oral or IV contrast. CT DLP: 228.[address] CTDI: mGy Automated exposure control for dose reduction was used. FINDINGS: Within the limitations of a non-contrast study, the following observations are made. The gallbladder is normal without gallstones or distention. There is no organomegaly involving the solid visceral organs of the upper abdomen. There is a left nephrectomy. There is a prominent parapelvic cyst of the right kidney but there is no right renal calcification or hydronephrosis. The bowel loops are normal in caliber and no inflammation or obstruction. There is a stable small reinaldo tral hernia containing large bowel loops which otherwise appear normal. There is no free intraperitoneal air or fluid. There is marked stable prostatic hypertrophy. There are no focal osseous lesions. There is marked scoliosis and multilevel degenerative disc diseas e in lumbar spine. IMPRESSION: 1. No right renal calcifications or hydronephrosis. There is a large stable parapelvic cyst. 2. Left nephrectomy. 3. Marked prostatic hypertrophy [facility], , 10/03/2024 3:28 PM
[2024-10-03] MEDS: HYDROcodone/APAP 10-325MG 1 EACH TAB PO PRN (18:02)
--- NOTE | 2024-10-03 18:08 | P.PN ---
Subjective Progress Note Date: 10/03/24 Principal diagnosis: Hypercalcemia, RCC Patient seen today sitting up in bed. He still complains of discomfort when pressing on the left sternal area. No headache, muscle twitching, nausea, vomiting, muscle cramping, constipation. Objective - Vital Signs Vital signs: Vital Signs Temp 97.6 F 10/03/24 13:32 Pulse 80 10/03/24 13:32 Resp 17 10/03/24 13:32 BP 148/73 10/03/24 13:32 Pulse Ox 94 L 10/03/24 13:32 FiO2 Intake & Output 10/02/24 10/03/24 10/03/24 18:59 06:59 18:59 Intake Total 300 540 Output Total 50 225 Balance 250 315 Weight 55.5 kg Intake: Oral 300 540 Output: Urine 50 225 Other: Voiding Method Urinal Toilet Urinal - Constitutional General appearance: Present: cooperative, no acute distress, thin - EENT Eyes: Present: anicteric sclerae, EOMI ENT: Present: hearing grossly normal - Respiratory Respiratory: bilateral: CTA - Cardiovascular Rhythm: regular - Peripheral edema leg Peripheral Edema: bilateral: None - Gastrointestinal General gastrointestinal: Present: soft - Integumentary Integumentary: Present: normal - Neurologic Neurologic: Present: CNII-XII intact - Musculoskeletal Musculoskeletal: Present: strength equal bilaterally - Psychiatric Psychiatric: Present: A&O x's 3, appropriate affect, intact judgment & insight - Labs CBC & Chem 7: 10/03/24 06:12 10/03/24 06:12 Labs: Abnormal Lab Results - Last 24 Hours (Table) 10/03/24 10/03/24 10/03/24 Range/Units 06:12 06:12 08:29 WBC 10.17 H (4.50-10.00) X 10*3/uL RBC 4.03 L (4.40-5.60) X 10*6/uL Hgb 11.0 L (13.0-17.0) g/dL Hct 35.3 L (39.6-50.0) % MCHC 31.2 L (32.0-37.0) g/dL RDW 16.6 H (11.5-14.5) % Monocytes # 1.21 H (0.20-1.00) X 10*3/uL Eosinophils # 0.82 H (0.04-0.35) X 10*3/uL Est GFR (CKD-EPI) 55 L (>=60) Total Protein 5.2 L (6.2-8.2) g/dL Total Protein (PEP) 5.4 L (6.2-8.2) g/dL Albumin 3.2 L (3.8-4.9) g/dL Assessment and Plan (1) Hypercalcemia Current Visit: Yes Status: Acute Code(s): E83.52 - HYPERCALCEMIA SNOMED Code(s): 00071802 (2) History of renal cell cancer Current Visit: Yes Status: Acute Code(s): Z85.528 - PERSONAL HISTORY OF OTHER MALIGNANT NEOPLASM OF KIDNEY SNOMED Code(s): 99803331719232 Plan: Hypercalcemia -Rapid new onset. Parathyroid hormone was low, suspicious for malignant process. Differentials include paraneoplastic syndrome, other malignant process, hormonal aberration 2/2 immunotherapy. -No gross findings on recent nuclear medicine bone scan or CT CAP to suggest progressive metastases from RCC. -Multiple myeloma workup ordered -Nephrology consulted -1 dose of aredia 30 mg given for hypercalcemia and fluids. Ca++ normal at 9.3 today Metastatic renal cell carcinoma -Diagnosis and treatment as documented in HPI -Patient has done well on immunotherapy for several years now. -Treatment for the same will be discussed once patient's acute condition has been resolved and underlying cause defined. Reviewed with patient and at the bedside that the current plan is to pursue a PET scan outpatient, to see if there is any potential malignancy that is not being recognized on CT scans. They agree with the plan and verbalized understanding. We reviewed most effective way to take pending medications. Reviewed bowel management while on pain medications. Patient and verbalized understanding. Patient is okay from a Hematology/Oncology standpoint to be discharged once he is cleared by Attending and other consulting Physicians.
--- NOTE | 2024-10-03 18:42 | P.PN ---
Subjective Progress Note Date: 10/03/24 Hospital course: Patient is an 83-year-old male with past medical history of coronary artery disease (status post negative stress test in December 2023 and recent echo in 09/10 with ejection fraction of 50 to 55%), GERD, hyperlipidemia, hypertension, osteoarthritis, history of left renal cancer (status post left nephrectomy in 2016) 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 Bhatt including hypercalcemia. Patient states he also had high blood pressure readings at home of 150s over 90s. He currently endorses left-sided chest pain without radiation suspects it is due to his arthritis. Patient states he took his blood pressure medications today before coming to the hospital. Patient states he has a history of mini stroke last year, but denies use of blood thinners besides aspirin. Patient also endorses a decreased appetite the last week or so and states he has not been drinking enough water. He denies headaches, vision changes, lower extremity swelling, abdominal pain, fevers, chills, nausea, vomiting, diarrhea ED documentation reviewed. In the ED patient was treated with a fluid bolus. Vitals on admission temperature 98.2, heart rate is 86 bpm, respiratory rate 18, blood pressure 155/79, O2 saturation 97% on room air. EKG independently interpreted as sinus rhythm with vent with a rate of 77 bpm and QTc of 384 ms with no acute ST-T wave changes. CXR interpreted independently as no acute cardiopulmonary process Labs on admission show the 7.4, hemoglobin 11.8, platelets 320. PT 10.6, INR 1, PTT 22.9. Sodium 137, testing 3.8, chloride 103, bicarb 29, BUN 32, creatinine 1.31, glucose 123. Calcium 12.2, ionized calcium 6.5. Magnesium 2. LFTs within normal limits. Troponin negative. NT proBNP 168. Lipase 191. Subjective: 10/02/2024: Patient seen and evaluated bedside. No acute events overnight. No acute complaints. Patient denies any nausea, vomiting, confusion, chest pain, urinary symptoms, muscle weakness. Patient states he has chronic pain all over his body. : Patient seen and evaluated bedside. No acute events overnight. No acute complaints. Pertinent positives and negatives as discussed above, a complete review of systems was performed and all other systems are negative. Vitals: Signs Reviewed Physical Exam: General: nontoxic, no distress, appears at stated age Derm: warm, dry, intact Head: atraumatic, normocephalic, symmetric Eyes: EOMI, anicteric sclera Mouth: no lip lesion, mucus membranes moist Cardiovascular: S1 S2 reg, no murmur, rubs, or gallops Lungs: CTA bilateral, no rhonchi, no rales, no accessory muscle use Abdominal: soft, non-tender to palpataion, no appreciable organomegaly Extremities: no gross muscle atrophy, no edema, no contractures Neuro: Alert, Oriented, CNII-XII grossly intact, gait normal Psych: well appearing, appropriate affect Data Received Today: Pertinent Labs: PTH 9.1, troponin <0.012, calcium 12.2, ionized calcium 6.5, WBC 7.4, Hgb 11.8, BUN 32, creatinine 1.31, magnesium 2.0, proBNP 168, lipase 20 Imaging: CT chest/abdomen without contrast displays somewhat prominent lymph nodes within the mediastinum, being ill for traits of the right upper lung field, no suspicious changes suggest current left renal masses, no suspicious lung nodule or focal infiltrates present Assessment and Plan: Patient is a 83-year-old male with past medical history of CAD, GERD, hyperlipidemia, hypertension, osteoarthritis, history of renal cancer with metastasis, CKD stage IIIa, BPH, history of GA and chronic low back pain who presented to the ED due to abnormal labs, elevated blood pressure, and chest pain. Active: Atypical chest pain, rule out ACS, resolved Troponin negative Trend troponin every 3 hours x 2 Recent echo from 09/10 shows EF of 50 to 55% Continue aspirin 81 mg po daily Continue Crestor 40 mg p.o. 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 No further cardiac workup at this time Hypercalcemia, possibly secondary to malignancy Calcium 12.2, ionized calcium 6.5 Nephrology following, note read. IV zoledronic acid once today 400 units IM calcitonin once per nephrology PTH 9.1 Vitamin D 25 hydroxy, vitamin D 1, 25 dihydroxy, PTHrp ordered CT showed prominent lymph nodes in the mediastinum Oncology following, free kappa light chain, free lambda light chain, immunofixation, protein electrophoresis ordered by oncology to rule out multiple myeloma Urology consulted, for new finding of hydronephrosis Chronic: CKD stage IIIA at baseline BUN 32, creatinine 1.31, GFR 51 Continue to monitor Consult nephrology BPH Continue Flomax 0.4 mg p.o. at bedtime Hypertension Continue amlodipine 5 mg twice daily Hyperlipidemia Increased Crestor to 40 mg p.o. at bedtime Resolved: Suspected pulmonary nodules F: Normal saline at 75 mL/h E: Replete as needed N: Heart healthy A: Patient ambulates independently at baseline DVT ppx: Lovenox 40 mg SQ daily, calculated creatinine clearance of 34 Code status: Full code Anticipated discharge place: Pending clinical course Anticipated discharge time: Pending clinical course Abdiel Thompson MD PGY-1 IM Dictation was produced using [employer] dictation software. please excuse any grammatical, word or spelling errors. I saw and evaluated the patient during the rivera and critical portions of this encounter, and discussed the case in detail with the resident author of this note, I agree with the Assessment and Plan, and my changes, if any, are highlighted in blue. Objective - Vital Signs Vital signs: Vital Signs Temp 98.2 F 10/03/24 02:00 Pulse 76 10/03/24 02:00 Resp 12 10/03/24 02:00 BP 131/74 10/03/24 02:00 Pulse Ox 97 10/03/24 02:00 FiO2 Intake & Output 10/02/24 10/03/24 10/03/24 18:59 06:59 18:59 Intake Total 300 Output Total 50 Balance 250 Weight 55.5 kg Intake: Oral 300 Output: Urine 50 Other: Voiding Method Urinal - Labs CBC & Chem 7: 10/03/24 06:12 10/03/24 06:12 Labs: Abnormal Lab Results - Last 24 Hours (Table) 10/02/24 10/02/24 Range/Units 04:09 10:53 Vitamin D 25-Hydroxy 23.5 L (30.0-100.0) ng/mL PTH Intact 9.1 L (14.0-72.0) pg/mL
[2024-10-03 20:30] VITALS: RESP 16
[2024-10-04 07:40] VITALS: TEMP 97.9
[2024-10-04 08:58] LABS: ALT 9 U/L (10-49); AST 14 U/L (14-35); Albumin 3.1 g/dL (3.8-4.9); Albumin/Globulin Ratio 1.63 Ratio (1.60-3.17); Alkaline Phosphatase 63 U/L (41-126); Blood Urea Nitrogen 19.5 mg/dL (9.0-27.0); Calcium 8.5 mg/dL (8.7-10.3); Carbon Dioxide 21.9 mmol/L (21.6-31.8); Chloride 107 mmol/L (96-109); Globulin 1.9 g/dL (1.6-3.3); Glucose 93 mg/dL (70-110); Magnesium 1.5 mg/dL (1.5-2.4); Potassium 3.7 mmol/L (3.5-5.5); Sodium 137 mmol/L (135-145); Total Bilirubin 0.4 mg/dL (0.3-1.2)
[2024-10-04 09:29] LABS: Basophils % (A) 0 %; Eosinophils # (A) 1.1 k/uL (0-0.7); Eosinophils % (A) 10 %; HCT 36.3 % (39.0-53.0); HGB 12.2 gm/dL (13.0-17.5); Lymphocytes # (A) 1.4 k/uL (1.0-4.8); Lymphocytes % (A) 13 %; MCH 28.8 pg (25.0-35.0); MCHC 33.6 g/dL (31.0-37.0); MCV 85.8 fL (80.0-100.0); Mean Platelet Volume 8.4; Monocytes # (A) 0.8 k/uL (0-1.0); Monocytes % (A) 8 %; Neutrophils # (A) 7.1 k/uL (1.3-7.7); Neutrophils % (A) 66 %; Platelet Count 335 k/uL (150-450); RBC 4.24 m/uL (4.30-5.90); RDW 15.6 % (11.5-15.5); WBC 10.7 k/uL (3.8-10.6)
[2024-10-04 09:43] LABS: ALT 15 U/L (4-49); AST 21 U/L (17-59); African American GFR (CKD) 61 (>60 ml/min/1.73 sqM); Albumin 3.4 g/dL (3.5-5.0); Albumin/Globulin Ratio 1.4; Alkaline Phosphatase 74 U/L (38-126); Anion Gap 9 mmol/L; Blood Urea Nitrogen 20 mg/dL (9-20); Calcium 9.2 mg/dL (8.4-10.2); Carbon Dioxide 20 mmol/L (22-30); Chloride 106 mmol/L (98-107); Globulin 2.5 g/dL; Glucose 100 mg/dL (74-99); Magnesium 1.5 mg/dL (1.6-2.3); Non-African American GFR(CKD) 53 (>60 ml/min/1.73 sqM); Potassium 3.6 mmol/L (3.5-5.1); Sodium 135 mmol/L (137-145); Total Bilirubin 0.5 mg/dL (0.2-1.3); Total Protein 5.9 g/dL (6.3-8.2)
--- NOTE | 2024-10-04 11:09 | P.PN ---
Subjective Patient is seen in follow-up for chronic kidney disease. Renal function stable. Calcium level normal. Hemodynamically stable. Admits to good urine output. Wants to go home. Vital signs are stable. General: No acute distress. HEENT: Head exam is unremarkable. LUNGS: No audible rhonchi or wheezes. HEART: Rate and Rhythm are regular. ABDOMEN: Nontender. EXTREMITITES: No edema. Objective - Vital Signs Vital signs: Vital Signs Temp 97.9 F 10/04/24 07:19 Pulse 89 10/04/24 07:19 Resp 16 10/04/24 07:19 BP 145/74 10/04/24 07:19 Pulse Ox 95 10/04/24 07:19 FiO2 Intake & Output 10/03/24 10/04/24 10/04/24 18:59 06:59 18:59 Intake Total 2760 Output Total 510 Balance 2250 Weight 56.1 kg Intake: Intake, IV Titration 600 Amount Sodium Chloride 0.9% 1, 600 000 ml @ 50 mls/hr IV . Q20H [facility] Rx#:[id number] Oral 2160 Output: Urine 450 Post Void Residual 60 Other: Voiding Method Toilet Toilet Urinal Urinal # Voids 2 3 - Labs CBC & Chem 7: 10/04/24 09:11 10/04/24 09:11 Labs: Abnormal Lab Results - Last 24 Hours (Table) 10/03/24 10/04/24 10/04/24 Range/Units 08:29 04:32 09:11 WBC 10.7 H (3.8-10.6) k/uL RBC 4.24 L (4.30-5.90) m/uL Hgb 12.2 L (13.0-17.5) gm/dL Hct 36.3 L (39.0-53.0) % RDW 15.6 H (11.5-15.5) % Eosinophils # 1.1 H (0-0.7) k/uL Sodium (137-145) mmol/L Carbon Dioxide (22-30) mmol/L Creatinine (0.66-1.25) mg/dL Est GFR (CKD-EPI) 55 L (>=60) Glucose (74-99) mg/dL Calcium 8.5 L (8.7-10.3) mg/dL Magnesium (1.6-2.3) mg/dL ALT 9 L (10-49) U/L Total Protein 5.0 L (6.2-8.2) g/dL Total Protein (PEP) 5.4 L (6.2-8.2) g/dL Albumin 3.1 L (3.8-4.9) g/dL 10/04/24 Range/Units 09:11 WBC (3.8-10.6) k/uL RBC (4.30-5.90) m/uL Hgb (13.0-17.5) gm/dL Hct (39.0-53.0) % RDW (11.5-15.5) % Eosinophils # (0-0.7) k/uL Sodium 135 L (137-145) mmol/L Carbon Dioxide 20 L (22-30) mmol/L Creatinine 1.26 H (0.66-1.25) mg/dL Est GFR (CKD-EPI) (>=60) Glucose 100 H (74-99) mg/dL Calcium (8.7-10.3) mg/dL Magnesium 1.5 L (1.6-2.3) mg/dL ALT (10-49) U/L Total Protein 5.9 L (6.2-8.2) g/dL Total Protein (PEP) (6.2-8.2) g/dL Albumin 3.4 L (3.8-4.9) g/dL Assessment and Plan Plan: Assessment: 1. Chronic kidney disease stage IIIb with baseline creatinine near 1.5 secondary to solitary right kidney and nephrosclerosis. GFR at baseline. 2. Status post left nephrectomy. 3. 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 Follows with oncology outpatient. CT scan showed prominent lymph nodes within the mediastinum. 4. Chest pain being followed by cardiology. 5. Hypertension with chronic kidney disease. Stable. 6. Hypercalcemia of malignancy. PTH appropriately suppressed. Vitamin D 23.5. 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 Status post IM calcitonin and zoledronic acid given October 02, 2024. Calcium level improved. 7. Mild right hydronephrosis and a solitary kidney. Urology following. No hydronephrosis noted on CT. 8. Hypomagnesemia from poor intake. Being replaced. Plan: Maintain IV fluids. Avoid calcium and vitamin D supplements. Oncology following. Avoid nephrotoxins. Magnesium being replaced. Add oral magnesium oxide. Repeat BMP and magnesium level 2 to 3 days postdischarge. Follow-up outpatient in 1 week
[2024-10-04] MEDS: MAGNESIUM SULFATE-D5W PMX 1 GM in DEXTROSE/WATER 1 100ML.BAG IVPB SCH (11:31)
--- NOTE | 2024-10-04 12:42 | P.PN ---
Subjective Progress Note Date: 10/04/24 Patient is an 84-year-old male with past medical history significant for metastatic renal cell carcinoma with previous left nephrectomy, chronic kidney disease, hypertension, hyperlipidemia, nonobstructive coronary artery disease, BPH, COPD, among other things. Patient states history of kidney cancer that metastasized to lung and sternum. Originally, diagnosed back in 2016, and since had left-sided nephrectomy. Has recently seen Dr. Figueroa in the pulmonary office for some enlarged mediastinal lymphadenopathy. Had a CT of the chest, abdomen and pelvis at [facility] 05/28/2024. Report faxed over to the pulmonary office, from outside facility, describes tiny groundglass opacities involving left upper lobe measuring 9 mm, unchanged from prior examination. Enlarged lymph node seen in the precarinal region measuring 2 cm. Osteolytic changes to the proximal sternum, surgically absent left kidney. Right renal cortical and parapelvic cysts. He follows with his established oncol ogist Dr. Mcneal. Reportedly undergoes infusions every 4 weeks, unable to recall the medication. Patient did have a recent hospitalization for chest pain, September 08 through . He was worked up for ACS, which was essentially ruled out. Also, had a negative dobutamine stress test Jan, 2024. Patient returns with the chief complaint of chest pain. Pulmonary was consulted for the patient's history of pulmonary nodules. Chest x-ray done on admission showing hyperinflation and flattening of the diaphragm consistent with COPD. No obvious nodularities or masses. CBC: WBC count 7.4, hemoglobin 11.8, hematocrit 34.5, platelets 320. CMP: Sodium 137, potassium 3.8, chloride 103, serum bicarb 29, BUN 32, creatinine 1.31, glucose 123, sinus calcium 6.5. Troponin less than 0.012. NT proBNP 168. EKG: Normal sinus rhythm, rate 77 bpm, no acute ischemic changes. Normal sinus infusing at 75 mL/h. Most recent vital signs: Afebrile, heart rate 86 bpm, respiratory rate 18, blood pressure 155/79 mmHg, SpO2 is 97% on room air. Patient currently being evaluated emergency department, room 10. He is lying in bed on room air in no acute distress. He is describing left upper anterior nonradiating chest pain. Localized just below the medial clavicle. Continuous in nature. Currently rated 5 on a 10 point numerical scale. He just recently received some pain medication. Not particularly worse with palpation nor position changes. Denies shortness of breath, cough, sputum production, hemoptysis, fever/chills. Does report poor appetite and further weight loss, however, unable to quantify. Denies any trouble swallowing or dysphagia. No stridor. Denies any new masses or enlarged lymph nodes. The patient is seen today October 03, 2024 in follow-up on the regular medical floor. He is sitting up in bed. Awake and alert in no acute distress. Denies any worsening shortness of breath, cough or congestion. He is maintaining good O2 saturation in the 90s on room air. He has some chest wall pain. Some arthritic type pain. He is receiving normal saline at 75 mL/h. White count 1 0.1. Hemoglobin 11.0. Platelets 322. Sodium 141. Potassium 3.7. Bicarb 23. BUN 17. Creatinine 1.3. Glucose 91. He remains on Lovenox for DVT prophylaxis. The patient is seen today October 04, 2024 in follow-up on the regular medical floor. He is currently sitting up in bed. Awake and alert in no acute distress. Maintaining good O2 saturations in the 90s on room air. No worsening shortness of breath, cough or congestion. No complaints of chest pain. Calcium level 9.[address] revealed no right renal calcifications or hydronephrosis. There is a large stable parapelvic cyst. Left nephrectomy. Marked prostatic hypertrophy. White count 10.7. Hemoglobin 12.2. Platelets 335. Sodium 135. Potassium 3.6. Bicarb 20. BUN 20. Creatinine 1.26. Glucose 100. Magnesium 1.5. Being replaced today. He remains on Lovenox for DVT prophylaxis. Normal saline at 50 mL/h. Objective - Vital Signs Vital signs: Vital Signs Temp 97.9 F 10/04/24 07:19 Pulse 89 10/04/24 07:19 Resp 16 10/04/24 07:19 BP 145/74 10/04/24 07:19 Pulse Ox 95 10/04/24 07:19 FiO2 Intake & Output 10/03/24 10/04/24 10/04/24 18:59 06:59 18:59 Intake Total 2760 Output Total 510 Balance 2250 Weight 56.1 kg Intake: Intake, IV Titration 600 Amount Sodium Chloride 0.9% 1, 600 000 ml @ 50 mls/hr IV . Q20H [facility] Rx#:[id number] Oral 2160 Output: Urine 450 Post Void Residual 60 Other: Voiding Method Toilet Toilet Urinal Urinal # Voids 2 3 - Exam GENERAL EXAM: Alert, 83-year-old male, sitting up in bed, on room air, in no apparent distress. HEAD: Normocephalic and atraumatic EYES: Normal reaction of pupils, equal size. NOSE: Clear with pink turbinates. THROAT: No erythema or exudates. NECK: No masses, no JVD. No stridor. CHEST: No chest wall deformity. LUNGS: Equal air entry with no crackles, wheeze, rhonchi or dullness. CVS: S1 and S2 normal with no audible murmur, regular rhythm. No extra heart sounds ABDOMEN: No hepatosplenomegaly, active bowel sounds, no guarding or rigidity. SPINE: No scoliosis or deformity SKIN: No rashes CENTRAL NERVOUS SYSTEM: No focal deficits, tone is normal in all 4 extremities. EXTREMITIES: There is no peripheral edema, clubbing, or cyanosis. Peripheral pulses are intact. - Labs CBC & Chem 7: 10/04/24 09:11 10/04/24 09:11 Labs: Abnormal Lab Results - Last 24 Hours (Table) 10/03/24 10/04/24 10/04/24 Range/Units 08:29 04:32 09:11 WBC 10.7 H (3.8-10.6) k/uL RBC 4.24 L (4.30-5.90) m/uL Hgb 12.2 L (13.0-17.5) gm/dL Hct 36.3 L (39.0-53.0) % RDW 15.6 H (11.5-15.5) % Eosinophils # 1.1 H (0-0.7) k/uL Sodium (137-145) mmol/L Carbon Dioxide (22-30) mmol/L Creatinine (0.66-1.25) mg/dL Est GFR (CKD-EPI) 55 L (>=60) Glucose (74-99) mg/dL Calcium 8.5 L (8.7-10.3) mg/dL Magnesium (1.6-2.3) mg/dL ALT 9 L (10-49) U/L Total Protein 5.0 L (6.2-8.2) g/dL Total Protein (PEP) 5.4 L (6.2-8.2) g/dL Albumin 3.1 L (3.8-4.9) g/dL 10/04/24 Range/Units 09:11 WBC (3.8-10.6) k/uL RBC (4.30-5.90) m/uL Hgb (13.0-17.5) gm/dL Hct (39.0-53.0) % RDW (11.5-15.5) % Eosinophils # (0-0.7) k/uL Sodium 135 L (137-145) mmol/L Carbon Dioxide 20 L (22-30) mmol/L Creatinine 1.26 H (0.66-1.25) mg/dL Est GFR (CKD-EPI) (>=60) Glucose 100 H (74-99) mg/dL Calcium (8.7-10.3) mg/dL Magnesium 1.5 L (1.6-2.3) mg/dL ALT (10-49) U/L Total Protein 5.9 L (6.2-8.2) g/dL Total Protein (PEP) (6.2-8.2) g/dL Albumin 3.4 L (3.8-4.9) g/dL Assessment and Plan Assessment: Atypical chest pain, patient had recent admission for chest pain September 08 through September 10, and ACS was essentially ruled out History of metastatic renal cell carcinoma with previous left nephrectomy; reportedly with metastasis to the sternum and lung. Patient also known to have mediastinal lymphadenopathy, including a 2 cm precarinal lymph node, which is being followed up on an outpatient basis Hypercalcemia, with an ionized calcium of 6.5 mg/dL, possibly secondary to malignancy improved and currently 9.2 Chronic kidney disease stage IIIa History of previous left nephrectomy in 2017 Hypertension History of hyperlipidemia History nonobstructive coronary artery disease History of BPH Plan: The patient was seen and evaluated Labs and medications reviewed Renal CT scan reviewed Stable and on room air Cleared for discharge Follow-up with Dr. Figueroa our office as scheduled This patient was seen independently by the pulmonary nurse practitioner addressing pulmonary issues I have personally seen and examined the patient, performed the documentation and the assessment and plan as written. Number of minutes spent on the visit: 25 Dictation was produced using [employer] dictation software. Please excuse any grammatical, word or spelling errors.
[2024-10-04 13:22] VITALS: BP 149/74; PULSE 85
--- NOTE | 2024-10-04 13:30 | P.DS ---
Providers Date of admission: 10/02/24 01:26 Expected date of discharge: 10/04/24 Attending physician: Gifty Khan MD Consults: 10/02/24 01:24 Consult Physician Routine Consulting Provider: Javi Sultana Consult Reason/Comments: cp Do you want consulting provider notified?: Yes Consult Physician Routine Consulting Provider: Roger Rae Consult Reason/Comments: known Do you want consulting provider notified?: Yes Consult Physician Urgent Consulting Provider: Madai Figueroa Consult Reason/Comments: pulm nodules Do you want consulting provider notified?: Yes 10/02/24 09:42 Consult Physician Routine Consulting Provider: Karla Raymond Consult Reason/Comments: Hypercalcemia Do you want consulting provider notified?: Yes 10/03/24 10:47 Consult Physician Routine Consulting Provider: Rosendo Brooks Consult Reason/Comments: hydronephrosis in solitary kidney Do you want consulting provider notified?: Yes Primary care physician: [facility] Hospital Course: Discharge Diagnosis: Atypical chest pain, resolved Hypercalcemia, possibly secondary to malignancy CKD stage IIIa at baseline BPH Hypertension Hyperlipidemia Suspected pulmonary nodules, resolved Hypomagnesemia Hospital Course: Patient is an 83-year-old male with past medical history of coronary artery disease (status post negative stress test in December 2023 and recent echo in 09/10 with ejection fraction of 50 to 55%), GERD, hyperlipidemia, hypertension, osteoarthritis, history of left renal cancer (status post left nephrectomy in 2016) 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 Bhatt including hypercalcemia. Patient states he also had high blood pressure readings at home of 150s over 90s. He currently endorses left-sided chest pain without radiation suspects it is due to his arthritis. Patient states he took his blood pressure medications today before coming to the hospital. Patient states he has a history of mini stroke last year, but denies use of blood thinners besides aspirin. Patient also endorses a decreased appetite the last week or so and states he has not been drinking enough water. He denies headaches, vision changes, lower extremity swelling, abdominal pain, fevers, chills, nausea, vomiting, diarrhea Vitals on admission temperature 98.2, heart rate is 86 bpm, respiratory rate 18, blood pressure 155/79, O2 saturation 97% on room air. EKG independently interpreted as sinus rhythm with vent with a rate of 77 bpm and QTc of 384 ms with no acute ST-T wave changes. CXR interpreted independently as no acute cardiopulmonary process Labs on admission show the 7.4, hemoglobin 11.8, platelets 320. PT 10.6, INR 1, PTT 22.9. Sodium 137, testing 3.8, chloride 103, bicarb 29, BUN 32, creatinine 1.31, glucose 123. Calcium 12.2, ionized calcium 6.5. Magnesium 2. LFTs within normal limits. Troponin negative. NT proBNP 168. Lipase 191. ED documentation reviewed. In the ED patient was treated with a fluid bolus. Cardiology, pulmonology, nephrology, oncology, urology were consulted on the case. Patient admitted to internal medicine service. While admitted cardiology decided there was no further cardiac workup at this time based off labs, imaging, and symptoms. While admitted patient was placed on the proper treatment for hypercalcemia. Labs ordered to find out secondary causes of his hypercalcemia. Oncology ordered labs for multiple myeloma, and he will follow- up with oncology outpatient. CT scan found incidental hydronephrosis and urology was on the case. Repeat renal CT ended up displaying no signs of hydronephrosis. He is to follow-up with wildlife refuge manager, oncologist, sewing machine operator plastic zipper, and PCP. Patient is being discharged home. Vital signs reviewed and stable. Physical examination: Vital signs reviewed General: non toxic, no distress, appears at stated age, normal weight Derm: no unusual rashes/lesions, warm Head: atraumatic, normocephalic, symmetric Eyes: EOMI, anicteric sclera, pupils equal round reactive to light ENT: Nose and ears atraumatic Cardiovascular: S1S2 reg, no murmur, positive dorsalis pedis pulse bilateral, no edema Lungs: CTA bilateral, no rhonchi, no rales, no accessory muscle use Abdominal: soft, nontender to palpation, no guarding Ext: muscle strength 5 out of 5 in all 4 extremities grossly, no gross muscle atrophy Neuro: CN II-XI grossly intact, no gross focal neuro deficits Psych: Alert, oriented to person, place, and time A total of greather than 30 minutes of time were spent preparing this complex discharge summary. Patient was discharge on October 04, 2024 at 11:40 AM. Abdiel Thompson MD PGY-1 IM Dictation was produced using [employer] dictation software. please excuse any grammatical, word or spelling errors. I have seen and evaluated the patient today. Discussed with the resident and agree with the residents finding and plan as documented in the resident's note. Changes highlighted in blue font. Plan - Discharge Summary Discharge Rx Participant: No New Discharge Prescriptions: Continue Tamsulosin HCl [Flomax] 0.4 mg PO HS Aspirin 81 mg PO HS Rosuvastatin Calcium [Crestor] 20 mg PO HS HYDROcodone/APAP 10-325MG [Nunez 10-325] 1 tab PO Q4HR PRN PRN Reason: Pain amLODIPine [Norvasc] 5 mg PO BID Discharge Medication List Tamsulosin HCl [Flomax] 0.4 mg PO HS 10/12/17 [History] amLODIPine [Norvasc] 5 mg PO BID 05/25/23 [History] Aspirin 81 mg PO HS 01/16/24 [History] Rosuvastatin Calcium [Crestor] 20 mg PO HS 09/08/24 [History] HYDROcodone/APAP 10-325MG [Nunez 10-325] 1 tab PO Q4HR PRN 10/02/24 [History] Follow up Appointment(s)/Referral(s): Karla Raymond MD [STAFF PHYSICIAN] - 1 Week (chemotherapy on 10/14/24 @ 3pm follow up with Dr. Mcneal 12/02/24 @11 at [facility]) Roger Rae DO [STAFF PHYSICIAN] - 11/25/24 1:00 pm Madai Figueroa MD [STAFF PHYSICIAN] - 1 Week [facility]Clinic [Primary Care Provider] - 10/15/24 1:00 pm Patient Instructions/Handouts: Hypercalcemia (DC) Activity/Diet/Wound Care/Special Instructions: Please follow up with PCP, oncologist, sewing machine operator plastic zipper, and wildlife refuge manager. Discharge Disposition: HOME SELF-CARE
[2024-10-05] MEDS ORDERED: MAGNESIUM OXIDE 400 MG TAB PO SCH (09:00)
[2024-10-07 13:40] LABS: Free Lambda Lt Chain Qnt, Seru 2.46 mg/dL (0.57-2.63)
[2024-10-08 08:21] LABS: Albumin 3.14 g/dL (3.80-4.90); Gamma Globulin 0.65 g/dL (0.70-1.50)
== END 2024-10-04 14:30 | disposition home or self-care (01) | DRG 313 ==
LOC: EC 00:04 → 3SCARD 01:26 → 5NMEDONC 16:08
PROVIDERS: ADMIT Internal Medicine; ATTEND Internal Medicine
DX: R07.9 Chest pain, unspecified (principal); E43 Unspecified severe protein-calorie malnutrition; C64.9 Malignant neoplasm of unspecified kidney, except renal pelvis; C79.51 Secondary malignant neoplasm of bone; C78.00 Secondary malignant neoplasm of unspecified lung; Z68.1 Body mass index [BMI] 19.9 or less, adult; N13.30 Unspecified hydronephrosis; N18.4 Chronic kidney disease, stage 4 (severe); E78.2 Mixed hyperlipidemia; E83.42 Hypomagnesemia; E83.52 Hypercalcemia; F32.A Depression, unspecified; G89.29 Other chronic pain; M54.50 Low back pain, unspecified; I12.9 Hypertensive chronic kidney disease with stage 1 through stage 4 chronic kidney disease, or unspecified chronic kidney disease; I25.10 Atherosclerotic heart disease of native coronary artery without angina pectoris; I25.2 Old myocardial infarction; J44.9 Chronic obstructive pulmonary disease, unspecified; R91.8 Other nonspecific abnormal finding of lung field; N40.0 Benign prostatic hyperplasia without lower urinary tract symptoms; Z79.82 Long term (current) use of aspirin; Z79.899 Other long term (current) drug therapy; Z86.73 Personal history of transient ischemic attack (TIA), and cerebral infarction without residual deficits; Z87.442 Personal history of urinary calculi; Z87.891 Personal history of nicotine dependence; Z90.5 Acquired absence of kidney; M19.071 Primary osteoarthritis, right ankle and foot; Z88.1 Allergy status to other antibiotic agents; Z88.8 Allergy status to other drugs, medicaments and biological substances
CPT/HCPCS: 36415; 71046; 71250; 74150; 80053; 80061; 82164; 82306; 82330; 82652; 83036; 83690; 83735; 83880; 83883; 83970; 84100; 84165; 84484; 85025; 85610; 85730; 86334; 93005; 96361; 96365; 96372; 96375; 99285

== ENCOUNTER → 2024-10-17 | Outpatient (CLI) | payer OTHER, MEDICARE ==
--- NOTE | 2024-10-19 10:31 | PE ---
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 TECHNIQUE: Following the intravenous administration of 12.0 mCi of F-18 FDG, whole body images are performed from the skull base to the Mid thigh. Images are reviewed on the computer in the coronal, axial, and sagittal planes. Reconstructed rotating images are created on independent workstation and reviewed on the computer. A non-contrast CT is performed in conjunction with the PET scan. Glucose level 96 mg/dL CT DLP: 237 mGycm, Automated exposure control for dose reduction was used. COMPARISON: CT 10/02/2024 20 1625., PET/CT None, MRI: None FINDINGS: Mediastinal SUV mean is 1.7. Hepatic parenchyma SUV mean is 2.0. SKULL BASE AND NECK: CHEST, MEDIASTINUM, AND HILAR REGION: Suspicious uptake identified examples include: * Mediastinal lymph nodes including AP window max SUV 9.5 measuring up to 8 mm. * Right low paratracheal max SUV 10.33 measuring up to 13 mm. * Subcarinal max SUV 7.5. * Right pulmonary hilum max SUV 8.9. * Left pulmonary hilum max SUV 9.3. Measurements of some of these these are not limited due to lack of IV contrast Noted enlarged right axillary lymph node with mild uptake which is thought to be misregistered max S UV 1.8 Right internal mammary gland lymph nodes is not enlarged measuring up to max SUV 1.4 ABDOMEN AND PELVIS: * Upper abdominal activity which is lack of IV contrast. Additionally a right axilla and right inter nal mammary gland Misregistration and positive anterior abdominal fat max SUV 3.5. * Left renal fossa soft tissue measuring 39 x 14 mm Max SUV 2.3. Not significantly changed from 10/02. MUSCULOSKELETAL STRUCTURES: No suspicious radiotracer activity. Scattered physiologic uptake throughout the bowel OTHER CT: Bilaterally aphakia. Atherosclerosis of the carotid bifurcations. Mild centrilobular emphysema change s and scarring. Atherosclerosis of the arterial vasculature. Scattered colonic diverticula. No obstru cting renal calculus identified. Circumferential bladder thickening and decompressed bladder. Prostat omegaly. Atherosclerosis of the coronary arteries. IMPRESSION: * Scattered metabolically active mediastinal lymph nodes most compatible with malignancy. Unclear if this is metastatic disease from patient's left renal cancer for a are new primary lung cancer. There is soft tissue in the left renal fossa which does not have increased metabolic activity. * Additional sites of possible metastatic disease include; upper abdominal probable lymph nodes with mild uptake and subtle uptake in a right internal mammary lymph node and right axillary lymph node. [facility], , 10/19/2024 10:28 AM
== END | disposition home or self-care (01) ==
LOC: RADPETMAIN 10:27
PROVIDERS: ATTEND Internal Medicine Hematology & Oncology
DX: C64.2 Malignant neoplasm of left kidney, except renal pelvis (principal); N28.89 Other specified disorders of kidney and ureter
CPT/HCPCS: 78815; A9552

== ENCOUNTER → 2024-11-27 | Day surgery (SDC) | payer MEDICARE, OTHER ==
[~2024-11-27] MED LIST: LIDOCAINE 1% INJ 10MG/ML (20 ML MDV) ONE; MIDAZOLAM 2 MG/2 ML VIAL ONE; PROPOFOL 10 MG/ML 20 ML VIAL IV ONE; ROCURONIUM 10 MG/ML (5 ML VIAL) IV ONE; SUCCINYLCHOLINE CHLORIDE 200 MG/10 ML VIAL IV ONE; fentaNYL (PF) 50 MCG/ML 2 ML AMP ONE
[2024-11-27] MEDS: LACTATED RINGERS 1,000 ML IV ONE (13:33)
[2024-11-27] MEDS: LACTATED RINGERS 1,000 ML IV SCH (13:52)
[2024-11-27 15:45] VITALS: TEMP 97
--- NOTE | 2024-11-27 15:54 | P.PCN ---
Date of Procedure: 11/27/24 Preoperative Diagnosis: History of renal cell lung cancer Mediastinal lymphadenopathy, PET avid, rule out metastases Postoperative Diagnosis: Same Procedure(s) Performed: Flexible bronchoscopy Endobronchial ultrasound Transbronchial needle aspirate, EBUS guided, station 7, station 4R, station 11R Anesthesia: BRADLEYA Surgeon: Madai Figueroa Estimated Blood Loss (ml): 0 Pathology: other Condition: stable Disposition: floor Operative Findings: The procedure was done in the endoscopy suite. A consent was signed. Timeout was performed. The patient was intubated by #8 orotracheal tube. The patient process was done by anesthesia Following that, a flexible bronchoscope was introduced through the orotracheal tube and a complete airway examination was done. Visualized airways include the trachea, bilateral mainstem bronchi, right upper lobe bronchus, bronchus intermedius, right middle lobe bronchus, right lower lobe bronchus and the various 10 segments on the right and examination of the left included the left mainstem bronchus, left upper lobe bronchus and the left lower lobe bronchus and the various 8 segments on the left. No endobronchial abnormalities identified Endobronchial ultrasound was inserted. Careful examination of the mediastinal stations revealed a 18 mm station 7 lymph node, 13 mm station 4R lymph node, 8 mm station 10R lymph nodes and 10 mm station 11R lymph node. Using a 22-gauge needle, transbronchial needle aspirate of station 7 was done, 4 passes, station 4R was done, 4 passes and station 11R was done, 3 passes. The procedure was successful. No endobronchial bleeding encountered. The endobronchial ultrasound was removed and the flexible bronchoscope was introduced and therapeutic airway suctioning was done. The patient was extubated and transferred to recovery in stable condition.
[2024-11-27 16:30] VITALS: BP 131/69; PULSE 75; RESP 16
== END ==
LOC: ORWHC2ENDO 13:07
PROVIDERS: ATTEND Internal Medicine Critical Care Medicine
DX: R59.0 Localized enlarged lymph nodes (principal); C65.1 Malignant neoplasm of right renal pelvis; C79.51 Secondary malignant neoplasm of bone; K21.9 Gastro-esophageal reflux disease without esophagitis; N18.4 Chronic kidney disease, stage 4 (severe); I25.119 Atherosclerotic heart disease of native coronary artery with unspecified angina pectoris; I25.2 Old myocardial infarction; I12.9 Hypertensive chronic kidney disease with stage 1 through stage 4 chronic kidney disease, or unspecified chronic kidney disease; N40.0 Benign prostatic hyperplasia without lower urinary tract symptoms; E83.52 Hypercalcemia; E78.5 Hyperlipidemia, unspecified; M19.90 Unspecified osteoarthritis, unspecified site; Z85.118 Personal history of other malignant neoplasm of bronchus and lung; Z88.8 Allergy status to other drugs, medicaments and biological substances; Z88.1 Allergy status to other antibiotic agents; Z79.82 Long term (current) use of aspirin; Z79.899 Other long term (current) drug therapy
CPT/HCPCS: 88305; 88312; 88313; 31629; 31652; J2250; J0330; J2003; J3010; J2704

== ENCOUNTER → 2025-01-03 | Outpatient (CLI) | payer OTHER ==
[2025-01-03 11:28] LABS: Partial Thromboplastin Time 23.9 sec (22.0-30.0); Prothrombin Time 10.6 sec (10.0-12.5)
[2025-01-03 15:12] LABS: Basophils # (A) 0.11 X 10*3/uL (0.00-0.10); Basophils % (A) 1.4 %; Eosinophils # (A) 1.57 X 10*3/uL (0.04-0.35); Eosinophils % (A) 20.6 %; HCT 36.9 % (39.6-50.0); Lymphocytes # (A) 1.46 X 10*3/uL (0.90-5.00); Lymphocytes % (A) 19.1 %; MCH 28.6 pg (27.0-32.0); MCHC 32.5 g/dL (32.0-37.0); MCV 87.9 FL (80.0-97.0); Mean Platelet Volume 11.7 FL (9.5-12.2); Monocytes # (A) 0.95 X 10*3/uL (0.20-1.00); Monocytes % (A) 12.5 %; NRBC Per 100 WBC 0 X 10*3/uL (0.00-0.01); Neutrophils # (A) 3.52 X 10*3/uL (1.80-7.70); Neutrophils % (A) 46.1 %; Platelet Count 282 X 10*3/uL (140-440); RDW 16.7 % (11.5-14.5); WBC 7.63 X 10*3/uL (4.50-10.00)
[2025-01-03 15:28] LABS: Blood Urea Nitrogen 35.7 mg/dL (9.0-27.0); Carbon Dioxide 24.6 mmol/L (21.6-31.8); Chloride 106 mmol/L (96-109); Glucose 98 mg/dL (70-110); Potassium 4.2 mmol/L (3.5-5.5); Sodium 139 mmol/L (135-145)
== END | disposition home or self-care (01) ==
LOC: LABPAT 10:13
PROVIDERS: ATTEND Thoracic Surgery (Cardiothoracic Vascular Surgery)
DX: Z01.818 Encounter for other preprocedural examination (principal); R59.0 Localized enlarged lymph nodes
CPT/HCPCS: 80051; 82565; 82947; 84520; 85025; 85610; 85730; 86850; 86900; 86901; 93005

== ENCOUNTER 2025-01-20 10:28 | Day surgery (SDC) | payer OTHER ==
[2025-01-16 16:23] VITALS: BMI 18.6
[~2025-01-20 10:28] MED LIST changes: +HYDROmorphone 0.5 MG/0.5 ML SYRINGE IVP PRN; -LIDOCAINE 1% INJ 10MG/ML (20 ML MDV) ONE; -MIDAZOLAM 2 MG/2 ML VIAL ONE; -PROPOFOL 10 MG/ML 20 ML VIAL IV ONE; -ROCURONIUM 10 MG/ML (5 ML VIAL) IV ONE; -SUCCINYLCHOLINE CHLORIDE 200 MG/10 ML VIAL IV ONE; -fentaNYL (PF) 50 MCG/ML 2 ML AMP ONE
[2025-01-20] MEDS: IV FLUID CONTINUATION 1,000 ML IV ONE (10:52)
[2025-01-20 11:09] LABS: Glucose,Whole Blood 94 mg/dL (70-110)
[2025-01-20] MEDS: LACTATED RINGERS 1,000 ML IV SCH (11:14)
[2025-01-20] MEDS: DEXAMETHASONE SOD PHOSPHATE 4 MG/ML 1 ML VIAL IV ONE (11:14)
[2025-01-20] MEDS: MIDAZOLAM 2 MG/2 ML VIAL IV PRN (11:15)
[2025-01-20] MEDS: ONDANSETRON 4 MG/2 ML VIAL IVP ONE (11:15)
[2025-01-20] MEDS ORDERED: GLYCOPYRROLATE 0.2 MG/ML 2 ML VIAL ONE (11:20)
[2025-01-20] MEDS ORDERED: PHENYLEPHRINE-0.9% NACL SYG 1,000 MCG/10 ML SYRINGE ONE (11:20)
[2025-01-20] MEDS ORDERED: SUCCINYLCHOLINE CHLORIDE 200 MG/10 ML VIAL IV ONE (11:20)
[2025-01-20] MEDS ORDERED: PROPOFOL 10 MG/ML 20 ML VIAL IV ONE (11:20)
[2025-01-20] MEDS ORDERED: NEOSTIGMINE 1 MG/ML 10 ML VIAL ONE (11:20)
[2025-01-20] MEDS ORDERED: fentaNYL (PF) 50 MCG/ML 2 ML AMP ONE (11:20)
[2025-01-20] MEDS ORDERED: ROCURONIUM 10 MG/ML (5 ML VIAL) IV ONE (11:20)
[2025-01-20] MEDS ORDERED: LIDOCAINE 1% INJ 10MG/ML (20 ML MDV) ONE (11:20)
[2025-01-20] MEDS: ceFAZolin 2 GM in DEXTROSE 5% IN WATER 50 ML IVPB PRN (11:25)
[2025-01-20 12:28] VITALS: TEMP 97.3
--- NOTE | 2025-01-20 12:46 | P.OP ---
Date of Procedure: 01/20/25 Preoperative Diagnosis: Diffuse mediastinal and bilateral hilar adenopathy Postoperative Diagnosis: Same Procedure(s) Performed: Mediastinoscopy with biopsy of pretracheal lymph node Anesthesia: GETA Surgeon: Ace Levy Estimated Blood Loss (ml): 3 Pathology: other (Right paratracheal lymph node for frozen section returns positive for granulomatous disease. Pretracheal lymph node for permanent section as well as cultures including routine, acid-fast and fungus) Condition: stable Disposition: PACU Indications for Procedure: 84-year-old male with a distant history of left nephrectomy for renal cell carcinoma has been followed by oncology. He recently had a CT of the chest which showed significant mediastinal adenopathy. PET scan showed diffuse mediastinal and bilateral hilar adenopathy with significant uptake on PET. Patient was referred for diagnostic biopsy. Operative Findings: There was a markedly enlarged pretracheal mediastinal node at the level of the mag. Just superior to this was a right paratracheal lymph node which was fairly smaller although plump. The second node was dissected out in its entirety and sent for frozen section. This returned positive for granulomatous disease. The large precut tracheal lymph node was removed in pieces and the vast majority of it was obtained. It was sent for permanent section as well as culture. There was no significant bleeding. Description of Procedure: Patient was brought to the operating room and placed supine on the table. General anesthesia was induced. He was intubated. A roll was placed beneath the shoulders and the neck was extended. The anterior neck and chest were sterilely prepped and draped. Transverse incision was made across the midline at the base of the neck carried down through skin and subcutaneous tissue. Platysma flaps were raised superiorly and inferiorly. Dissection was carried in the midline between the strap muscles down to the pretracheal plane inferior to the thyroid gland. Once entering the pretracheal plane, we were able to dissected further into the mediastinum with blunt dissection with a finger. Mediastinum scope was then inserted into the S[place] tracheal plane. Dissection was carried down to the level of the mag. Anterior to the mag extending over the right mainstem bronchus and proximally was a large anthracotic appearing lymph node. As we dissected this off there was a small lymph node that dissected its entirety at the superior and on the right paratracheal region. This was sent for frozen section and returned positive for granulomatous disease. The remainder of the large lymph node was resected in pieces. It was sent for permanent section as well as culture. The wound was packed with a [place] for a few minutes. There was no significant bleeding. The packing was removed. Mediastinascope was replaced and good hemostasis confirmed. Strap muscles were closed in the midline. Platysma layer was closed with 3-0 Vicryl. Subcuticular closure of 3-0 Vicryl was also performed. Skin glue was applied. The patient was awakened and transferred to recovery in stable condition.
--- NOTE | 2025-01-20 12:50 | XR ---
EXAMINATION TYPE: XR chest 1V portable DATE OF EXAM: 01/20/2025 12:41 PM COMPARISON: 10/02/2024 CLINICAL INDICATION: Male, 84 years old with history of post mediastinoscopy, , FINDINGS: Heart normal size. Hyperinflation. Interstitial changes in the upper and mid lungs have progressed fr om 10/02/2024. No pleural effusion. No pneumomediastinum or pneumothorax seen. Prominent skinfolds pro jecting at the right lower lung. IMPRESSION: COPD with progressive interstitial changes in the upper and midlungs compared to 10/17/2024. Some diff erential considerations include atypical/COVID pneumonia, interstitial pneumonitis, and hypersensitiv ity pneumonitis. Further clinical correlation recommended. [facility], , 01/20/2025 12:48 PM
[2025-01-20 14:19] VITALS: BP 130/75; PULSE 77; RESP 16
== END 2025-01-20 14:34 | disposition home or self-care (01) ==
LOC: OR 10:28
PROVIDERS: ATTEND Thoracic Surgery (Cardiothoracic Vascular Surgery)
DX: R59.0 Localized enlarged lymph nodes (principal); C64.2 Malignant neoplasm of left kidney, except renal pelvis; I25.10 Atherosclerotic heart disease of native coronary artery without angina pectoris; I25.2 Old myocardial infarction; I12.9 Hypertensive chronic kidney disease with stage 1 through stage 4 chronic kidney disease, or unspecified chronic kidney disease; N18.4 Chronic kidney disease, stage 4 (severe); N40.0 Benign prostatic hyperplasia without lower urinary tract symptoms; E11.9 Type 2 diabetes mellitus without complications; E78.5 Hyperlipidemia, unspecified; Z90.5 Acquired absence of kidney; Z86.73 Personal history of transient ischemic attack (TIA), and cerebral infarction without residual deficits; Z88.1 Allergy status to other antibiotic agents; Z79.899 Other long term (current) drug therapy
CPT/HCPCS: 39402; 88305; 88312; 88331; 87070; 87205; 87075; 87116; 87206; 71045; J2250; J0330; J1100; J2710; J0690; J2405; J2003; J3010; J2704; J2371; J1596

== ENCOUNTER 2025-03-19 18:34 | Observation (INO) | payer OTHER, MEDICARE ==
[2025-03-19 19:36] LABS: Basophils # (A) 0.10 10*3/uL (0.00-0.10); Basophils % (A) 1.3 %; Eosinophils # (A) 1.47 10*3/uL (0.04-0.35); Eosinophils % (A) 19.0 %; HCT 33.6 % (39.6-50.0); HGB 11.3 g/dL (13.0-17.0); Lymphocytes # (A) 1.61 10*3/uL (0.90-5.00); Lymphocytes % (A) 20.9 %; MCH 29.4 pg (27.0-32.0); MCHC 33.6 g/dL (32.0-37.0); MCV 87.3 fL (80.0-97.0); Monocytes # (A) 1.27 10*3/uL (0.20-1.00); Monocytes % (A) 16.5 %; Neutrophils # (A) 3.25 10*3/uL (1.80-7.70); Neutrophils % (A) 42.0 %; Platelet Count 278 10*3/uL (140-440); RBC 3.85 10*6/uL (4.40-5.60); RDW 16.6 % (11.5-14.5); WBC 7.72 10*3/uL (4.50-10.00)
[2025-03-19 19:58] LABS: ALT 14 U/L (4-49); AST 20 U/L (17-59); African American GFR (CKD) 36 (>60 ml/min/1.73 sqM); Albumin 3.5 g/dL (3.5-5.0); Alkaline Phosphatase 75 U/L (38-126); Anion Gap 8 mmol/L; Blood Urea Nitrogen 41 mg/dL (9-20); Calcium 12.4 mg/dL (8.4-10.2); Carbon Dioxide 26 mmol/L (22-30); Chloride 100 mmol/L (98-107); Glucose 84 mg/dL (74-99); Magnesium 2.2 mg/dL (1.6-2.3); Non-African American GFR(CKD) 31 (>60 ml/min/1.73 sqM); Potassium 4.5 mmol/L (3.5-5.1); Sodium 134 mmol/L (137-145); Total Protein 6.0 g/dL (6.3-8.2)
[2025-03-19] MEDS: SODIUM CHLORIDE 0.9% 500 ML 500 ML IV ONE (20:09)
[2025-03-19 20:46] LABS: Bilirubin,Urine Negative (Negative); Blood,Urine Negative (Negative); Color,Urine Colorless; Glucose,Urine (UA) Negative (Negative); Ketones,Urine Negative (Negative); Leukocyte Esterase,Urine Negative (Negative); Nitrite,Urine Negative (Negative); PH, Urine 6.5 (5.0-8.0); Protein,Urine Negative (Negative); Specific Gravity,Urine 1.005 (1.001-1.035); Urobilinogen,Urine <2.0 mg/dL (<2.0)
[2025-03-19] MEDS ORDERED: ONDANSETRON 4 MG/2 ML VIAL IVP PRN (20:47)
[2025-03-19] MEDS ORDERED: NALOXONE 0.4 MG/ML 1 ML VIAL IV PRN (20:47)
[2025-03-19] MEDS ORDERED: ACETAMINOPHEN TAB 325 MG TAB PO PRN (20:47)
[2025-03-19] MEDS: SODIUM CHLORIDE 0.9% 250 ML with PAMIDRONATE 60 MG IV ONE (21:00)
--- NOTE | 2025-03-19 21:45 | P.HPIM ---
History of Present Illness H&P Date: 02/17/25 Chief Complaint: Abnormal lab value This is an 84-year-old male patient past medical history of coronary artery disease (status post negative stress test in December 2023 and recent echo in 09/10 with ejection fraction of 50 to 55%), GERD, hyperlipidemia, hypertension, osteoarthritis, history of left renal cancer (status post left nephrectomy in 2016) with metastasis to left lung and sternum currently receiving monthly infusion, chronic kidney disease stage 3A (GFR of 54), BPH, and chronic low back pain presented to the emergency department due to abnormal labs . Patient apparently has been here back in September for the same issue which is hypercalcemia. He had extensive investigation to find out the secondary causes of his hypercalcemia. Oncology back then did order labs for multiple myeloma. He was discharged with a calcium level of 9.2. Patient presents today with calcium value of 12.4. His albumin level is 3.5. BUN of 41 and creatinine 1.94 . Patient's tile finisher referred him to the ER for further workup and management. He recommended bisphosphonate and IV fluid hydration along with oncology and pulmonology consult. Upon arrival to the ED, patient's blood pressure was slightly elevated with a systolic blood pressure of 154. He reports feeling weak but no falls at home . Nephrology will be consulted as well Social history: Tobacco: former Alcohol: rarely Recreational drugs: none Travel: none Sick contacts: none Review of system : Pertinent positives and negatives as discussed in HPI, a complete review of systems was performed and all other systems are negative PE: General: nontoxic, no distress, appears at stated age Derm: warm, dry, intact Head: atraumatic, normocephalic, symmetric Eyes: EOMI, anicteric sclera Mouth: no lip lesion, mucus membranes moist Cardiovascular: S1 S2 reg, no murmur, rubs, or gallops Lungs: CTA bilateral, no rales, no accessory muscle use Abdominal: soft, non-tender to palpataion, no appreciable organomegaly Extremities: no gross muscle atrophy, no edema, no contractures Neuro: Alert, Oriented, CNII-XII grossly intact, gait normal Psych: well appearing, appropriate affect Assessment and plan : - Hypercalcemia, possibly due to malignancy : Calcium of 12.4 Will order ionized calcium Consult nephrology Patient currently on IV fluid hydration and will receive IV V bisphosphonate -Pulmonary malignancy: Patient on IV infusion therapy Pulmonology and oncology consult -acute on Stage IIIa chronic kidney disease : Baseline creatinine 1.3 Patient presented with a creatinine of 1.94 Continue with IV fluid hydration avoid nephrotoxic medication -BPH Continue Flomax -Essential hypertension Continue amlodipine 5 mg twice daily -Dyslipidemia Continue statin therapy CODE STATUS is full code DVT prophylaxis on heparin subcu Disposition : Likely home when patient is ready and stable Time spent : 55 min Past Medical History Past Medical History: Coronary Artery Disease (CAD), Cancer, Chest Pain / Angina, CVA/TIA, GERD/Reflux, Hyperlipidemia, Hypertension, Osteoarthritis (OA), Prostate Disorder, Renal Disease Additional Past Medical History / Comment(s): L renal cancer with nephrectomy/mets L lung and sternum/no longer taking oral chemo d/t it was affecting his kidney/states he receives infusion once a month but does not know what type of infusion last dose was 01/06/25, chronic renal failure stage IV- monitored by tile finisher, BPH, newsome's esophagus, gastritis, dry mouth, chronic low back pain. States he had a mild stroke in 2020 had R arm and leg weakness. Arthritis in knees, hips and thumbs. Pre-diabetic. Last Myocardial Infarction Date:: 2019 History of Any Multi-Drug Resistant Organisms: None Reported Past Surgical History: Heart Catheterization, Orthopedic Surgery Additional Past Surgical History / Comment(s): L nephrectomy 2015, R HAND 2ND DIGIT LOST TOP OF FINGER IN CRUSHING INJURY, EGDs, colonoscopy, bilateral cataract removals/lens implants. Past Anesthesia/Blood Transfusion Reactions: No Reported Reaction Additional Past Anesthesia/Blood Transfusion Reaction / Comment(s): No hx of blood transfusion Past Psychological History: Depression Smoking Status: Former smoker - Past Family History Father Family Medical History: Cancer, Hypertension, Myocardial Infarction ([place]) Additional Family Medical History / Comment(s): SKIN CANCER Mother Family Medical History: Cancer Additional Family Medical History / Comment(s): breast cancer - throat cancer Sister(s) Family Medical History: Cancer Additional Family Medical History / Comment(s): skin/breast and throat cancer Medications and Allergies Home Medications Medication Instructions Recorded Confirmed Type Tamsulosin HCl [Flomax] 0.4 mg PO HS 10/12/17 01/20/25 History amLODIPine [Norvasc] 5 mg PO BID 05/25/23 01/20/25 History Aspirin 81 mg PO HS 01/16/24 01/20/25 History Rosuvastatin Calcium [Crestor] 40 mg PO HS 09/08/24 01/20/25 History HYDROcodone/APAP 10-325MG [Rush 1 tab PO Q4HR PRN 10/02/24 01/20/25 History 10-325] Allergies Allergy/AdvReac Type Severity Reaction Status Date / Time atorvastatin calcium AdvReac JOINT PAIN Verified 03/19/25 18:39 [From Lipitor] clindamycin AdvReac JOINT PAIN Verified 03/19/25 18:39 Physical Exam Vitals: Vital Signs Temp Pulse Resp BP Pulse Ox 03/19/25 18:37 97.5 F L 75 16 154/73 96 Intake and Output 03/19/25 03/19/25 03/19/25 06:59 14:59 22:59 Other: Weight 55.792 kg Results CBC & Chem 7: 03/19/25 19:31 03/19/25 19:31 Labs: Abnormal Lab Results - Last 24 Hours (Table) 03/19/25 03/19/25 Range/Units 19:31 19:31 RBC 3.85 L (4.40-5.60) 10*6/uL Hgb 11.3 L (13.0-17.0) g/dL Hct 33.6 L (39.6-50.0) % Monocytes # 1.27 H (0.20-1.00) 10*3/uL Eosinophils # 1.47 H (0.04-0.35) 10*3/uL Sodium 134 L (137-145) mmol/L BUN 41 H (9-20) mg/dL Creatinine 1.94 H (0.66-1.25) mg/dL Calcium 12.4 H (8.4-10.2) mg/dL Total Protein 6.0 L (6.3-8.2) g/dL
--- NOTE | 2025-03-19 22:16 | ED ---
General Adult HPI - General Chief complaint: Recheck/Abnormal Lab/Rx Stated complaint: Abn Labs Time Seen by Provider: 03/19/25 19:00 Source: patient, RN notes reviewed, old records reviewed Mode of arrival: ambulatory Limitations: no limitations - History of Present Illness Initial comments: 84-year-old male sent in by his roofing foreman for hypercalcemia. Patient has a history of kidney cancer status post left nephrectomy, CAD, hypertension, hyperlipidemia, possible sarcoidosis. Has been dealing with elevated calcium levels. Was sent by roofing foreman due to the elevated calcium levels. No acute symptoms. Denies chest pain, abdominal pain, nausea, vomiting. Denies any confusion. Presents for further evaluation at this time. Pleasant with Dr. Mcneal and Dr. Bhatt. - Related Data Home Medications Medication Instructions Recorded Confirmed Tamsulosin HCl [Flomax] 0.4 mg PO HS 10/12/17 01/20/25 amLODIPine [Norvasc] 5 mg PO BID 05/25/23 01/20/25 Aspirin 81 mg PO HS 01/16/24 01/20/25 Rosuvastatin Calcium [Crestor] 40 mg PO HS 09/08/24 01/20/25 HYDROcodone/APAP 10-325MG [[place] 1 tab PO Q4HR PRN 10/02/24 01/20/25 10-325] Allergies Allergy/AdvReac Type Severity Reaction Status Date / Time atorvastatin calcium AdvReac JOINT PAIN Verified 03/19/25 18:39 [From Lipitor] clindamycin AdvReac JOINT PAIN Verified 03/19/25 18:39 Review of Systems ROS Statement: Those systems with pertinent positive or pertinent negative responses have been documented in the HPI. Review of Systems: CONST: Denies fever EYES: Denies blurry vision ENT: Denies nasal congestion C/V: Denies Chest pain RESP: Denies shortness of breath GI: Denies abdominal pain : Denies dysuria SKIN: Denies rash. MSK: Denies joint pain. NEURO: Denies headache ROS Other: All systems not noted in ROS Statement are negative. Past Medical History Past Medical History: Coronary Artery Disease (CAD), Cancer, Chest Pain / Angina, CVA/TIA, GERD/Reflux, Hyperlipidemia, Hypertension, Osteoarthritis (OA), Prostate Disorder, Renal Disease Additional Past Medical History / Comment(s): L renal cancer with nephrectomy /mets L lung and sternum/no longer taking oral chemo d/t it was affecting his kidney/states he receives infusion once a month but does not know what type of infusion last dose was 01/06/25, chronic renal failure stage IV-monitored by roofing foreman, BPH, newsome's esophagus, gastritis, dry mouth, chronic low back pain. States he had a mild stroke in 2019 had R arm and leg weakness. Arthritis in knees, hips and thumbs. Pre-diabetic. Last Myocardial Infarction Date:: 2019 History of Any Multi-Drug Resistant Organisms: None Reported Past Surgical History: Heart Catheterization, Orthopedic Surgery Additional Past Surgical History / Comment(s): L nephrectomy 2015, R HAND 2ND DIGIT LOST TOP OF FINGER IN CRUSHING INJURY, EGDs, colonoscopy, bilateral cataract removals/lens implants. Past Anesthesia/Blood Transfusion Reactions: No Reported Reaction Additional Past Anesthesia/Blood Transfusion Reaction / Comment(s): No hx of blood transfusion Past Psychological History: Depression Smoking Status: Former smoker - Past Family History Father Family Medical History: Cancer, Hypertension, Myocardial Infarction ([place]) Additional Family Medical History / Comment(s): SKIN CANCER Mother Family Medical History: Cancer Additional Family Medical History / Comment(s): breast cancer - throat cancer Sister(s) Family Medical History: Cancer Additional Family Medical History / Comment(s): skin/breast and throat cancer General Exam - General Exam Comments Initial Comments: General: Appears in no acute distress. HEAD: Normal with no signs of head trauma. EYES: EOMI ENT: Hearing grossly intact, normal oropharynx. RESPIRATORY: Clear breath sounds bilaterally. No wheezes, rales, or rhonchi. C/V: Regular rate and rhythm. S1 and S2 auscultated, no edema, peripheral pulses 2+ and intact throughout ABD: Abd is soft, nontender, nondistended EXT: Normal range of motion, no obvious deformity SKIN: No rashes or lesions observed on exposed skin. NEURO: Alert and oriented x 4. Limitations: no limitations Course Vital Signs 03/19/25 03/19/25 18:37 21:59 Temperature 97.5 F L Pulse Rate 75 73 Respiratory 16 18 Rate Blood Pressure 154/73 138/82 O2 Sat by Pulse 96 96 Oximetry Medical Decision Making - Medical Decision Making Was pt. sent in by a medical professional or institution (, PA, ELECTRICAL LINE MECHANIC, urgent care, hospital, or senior care...) When possible be specific @ -Sent by roofing foreman Dr. Bhatt and Dr. Ochoa's office to be admitted to the hospital for hypercalcemia with evaluation by oncology as well as by pulmonology Did you speak to anyone other than the patient for history (EMS, parent, family, police, friend...)? What history was obtained from this source @ -No Did you review nursing and triage notes (agree or disagree)? Why? @ -I reviewed and agree with nursing and triage notes Were old charts reviewed (outside hosp., previous admission, EMS record, old EKG, old radiological studies, urgent care reports/EKG's, senior care records)? Report findings @ -No old charts were reviewed Differential Diagnosis (chest pain, altered mental status, abdominal pain women, abdominal pain men, vaginal bleeding, weakness, fever, dyspnea, syncope, head ache, dizziness, GI bleed, back pain, seizure, CVA, palpatations, mental health, musculoskeletal)? @ -Hypercalcemia, electrolyte abnormality, dehydration. This list is not all- inclusive. EKG interpreted by me (3pts min.). @ -As above X-rays interpreted by me (1pt min.). @ -None done CT interpreted by me (1pt min.). @ -None done U/S interpreted by me (1pt. min.). @ -None done What testing was considered but not performed or refused? (CT, X-rays, U/S, labs)? Why? @ -None What meds were considered but not given or refused? Why? @ -None Did you discuss the management of the patient with other professionals (professionals i.e. , PA, ELECTRICAL LINE MECHANIC, lab, RT, psych nurse, social studies teacher, yacht rigger, teacher, senior loan officer, case resource manager)? Give summary @ -Spoke with patient's roofing foreman, Dr. Rae who instructed me to admit the patient, consult pulmonology as well as oncology for evaluation for the possible sarcoidosis that he was describing as well as malignancy. He wanted the patient given 60 mg of IV pamidronate as well as started on on 0.9 normal saline drip at 50 cc an hour. Spoke with admitting provider, Dr. Green who accepted the admission. Was smoking cessation discussed for >3mins.? @ -No Was critical care preformed (if so, how long)? @ -No Were there social determinants of health that impacted care today? How? (Homelessness, low income, unemployed, alcoholism, drug addiction, transportation, low edu. Level, literacy, decrease access to med. care, half-way, rehab)? @ -No Was there de-escalation of care discussed even if they declined (Discuss DNR or withdrawal of care, Hospice)? DNR status @ -No What co-morbidities impacted this encounter? (DM, HTN, Smoking, COPD, CAD, Cancer, CVA, ARF, Chemo, Hep., AIDS, mental health diagnosis, sleep apnea, morbid obesity)? @ -None Was patient admitted / discharged? Hospital course, mention meds given and route, prescriptions, significant lab abnormalities, going to OR and other pertinent info. @ -Based on patient's presentation physical exam, presents emergency department complaining of abnormal labs. Was sent by his roofing foreman. Patient is hypercalcemic. Does not have any significant symptoms. Labs were obtained and showed hypercalcemia of 12.4. Mildly worsening of his CKD as well with creatinine of 1.94, suspecting mild [place]. Given a 500 cc fluid bolus considering he only has 1 kidney. Vital signs within acceptable limits. EKG shows no signs of acute ischemia. Spoke with patient's roofing foreman, Dr. Rae who instructed me to admit the patient, consult pulmonology as well as oncology for evaluation for the possible sarcoidosis that he was describing as well as malignancy. He wanted the patient given 60 mg of IV pamidronate as well as started on on 0.9 normal saline drip at 50 cc an hour. Spoke with admitting provider, Dr. Green who accepted the admission. Undiagnosed new problem with uncertain prognosis? @ -No Drug Therapy requiring intensive monitoring for toxicity (Heparin, Nitro, Insulin, Cardizem)? @ -No Were any procedures done? @ -No Diagnosis/symptom? @ -Hypercalcemia, Malignancy, CKD Acute, or Chronic, or Acute on Chronic? @ -Acute Uncomplicated (without systemic symptoms) or Complicated (systemic symptoms)? @ -Complicated Side effects of treatment? @ -No Exacerbation, Progression, or Severe Exacerbation? @ -No Poses a threat to life or bodily function? How? (Chest pain, [place], [place], pneumonia, PE, COPD, DKA, ARF, appy, cholecystitis, CVA, Diverticulitis, Homicidal, Crissy cidal, threat to staff... and all critical care pts) @ -Potentially, yes - Lab Data Result diagrams: 03/19/25 19:31 03/19/25 19:31 Lab Results 03/19/25 03/19/25 03/19/25 Range/Units 19:31 19:31 20:40 WBC 7.72 (4.50-10.00) 10*3/uL RBC 3.85 L (4.40-5.60) 10*6/uL Hgb 11.3 L (13.0-17.0) g/dL Hct 33.6 L (39.6-50.0) % MCV 87.3 (80.0-97.0) fL MCH 29.4 (27.0-32.0) pg MCHC 33.6 (32.0-37.0) g/dL Plt Count 278 (140-440) 10*3/uL MPV 11.0 (9.5-12.2) fL Immature Gran % (Auto) 0.3 % Neutrophils % 42.0 % Lymphocytes % 20.9 % Monocytes % 16.5 % Eosinophils % 19.0 % Basophils % 1.3 % Immature Gran # 0.02 (0.00-0.04) 10*3/uL Neutrophils # 3.25 (1.80-7.70) 10*3/uL Lymphocytes # 1.61 (0.90-5.00) 10*3/uL Monocytes # 1.27 H (0.20-1.00) 10*3/uL Eosinophils # 1.47 H (0.04-0.35) 10*3/uL Basophils # 0.10 (0.00-0.10) 10*3/uL Sodium 134 L (137-145) mmol/L Potassium 4.5 (3.5-5.1) mmol/L Chloride 100 (98-107) mmol/L Carbon Dioxide 26 (22-30) mmol/L Anion Gap 8 mmol/L BUN 41 H (9-20) mg/dL Creatinine 1.94 H (0.66-1.25) mg/dL Est GFR (CKD-EPI)AfAm 36 (>60 ml/min/1.73 sqM) Est GFR (CKD-EPI)NonAf 31 (>60 ml/min/1.73 sqM) Glucose 84 (74-99) mg/dL Calcium 12.4 H (8.4-10.2) mg/dL Magnesium 2.2 (1.6-2.3) mg/dL Total Bilirubin 0.5 (0.2-1.3) mg/dL AST 20 (17-59) U/L ALT 14 (4-49) U/L Alkaline Phosphatase 75 (38-126) U/L Total Protein 6.0 L (6.3-8.2) g/dL Albumin 3.5 (3.5-5.0) g/dL Urine Color Colorless Urine Appearance Clear (Clear) Urine pH 6.5 (5.0-8.0) Ur Specific [place] 1.005 (1.001-1.035) Urine Protein Negative (Negative) Urine Glucose (UA) Negative (Negative) Urine Ketones Negative (Negative) Urine Blood Negative (Negative) Urine Nitrite Negative (Negative) Urine Bilirubin Negative (Negative) Urine Urobilinogen <2.0 (<2.0) mg/dL Ur Leukocyte Esterase Negative (Negative) - EKG Data -: EKG Interpreted by Me EKG Comments: 12-lead Electrocardiogram Interpretation Note EKG was reviewed and interpreted by myself. 12-lead ECG performed at 2044 is interpreted by me as revealing normal sinus rhythm at a rate of 75 beats per minute. [place] is normal. SD interval is 199 ms, QRS durations 104 ms, QTc is 395 ms.. There were no ST or T wave abnormalities to suggest myocardial ischemia or injury. R wave progression across the precordium was satisfactory. By my interpretation this EKG is non-diagnostic for acute ischemia. Disposition Clinical Impression: Hypercalcemia, Malignancy, CKD (chronic kidney disease) Disposition: ADMITTED IP TO THIS HOSP Condition: Stable Time of Disposition: 20:47
[2025-03-20] MEDS: HEPARIN SODIUM,PORCINE 5,000 UNIT/ML 1 ML VIAL SQ SCH (00:05)
[2025-03-20] MEDS: SODIUM CHLORIDE 0.9% 1,000 ML IV STA (00:06)
--- NOTE | 2025-03-20 02:42 | P.CNPUL ---
History of Present Illness Consult date: 03/20/25 Requesting physician: Teo Jean Reason for consult: other (Lymphadenopathy) Chief complaint: Abnormal labs History of present illness: Patient is an 83-year-old male with past medical history significant for metastatic renal cell carcinoma with previous left nephrectomy, chronic kidney d isease, hypertension, hyperlipidemia, nonobstructive coronary artery disease. He has been following up on an outpatient basis in the pulmonary office for enlarged mediastinal lymphadenopathy, including a 2 cm precarinal lymph node. PET scan done on 10/17/2024 showing scattered metabolically active mediastinal lymph nodes. Did undergo EBUS bronchoscopy on 11/27/2024 and specimen was nondiagnostic for carcinoma or granulomatous inflammation. Subsequently, followed up with cardiothoracic surgery and underwent mediastinoscopy with biopsy of pretracheal lymph node. Pathology positive for nonnecrotizing granulomatous inflammation. Negative for carcinoma. Fungal and acid-fast bacilli cultures were negative. Patient was sent to the emergency department yesterday by his print and pattern designer. Reportedly, had abnormal labs including severely elevated calcium on lab draw. Of note, previously had elevated calcium on previous hospitalization in September. On arrival to the ED did receive dose of biphosphonate and is being hydrated with normal saline at 50 cc/h. No calcitonin was given. Labs from admission including a CBC with a WBC count of 7.7, hemoglobin 11.3, platelets 278. CMP with sodium 134, potassium 4.5, chloride 100, serum bicarb 26, BUN 41, creatinine 1.94, glucose 84. Calcium 12.4. Ionized calcium 6.5. Urinalysis unremarkable. EKG: Normal sinus rhythm, rate 75 bpm. QTc 395 ms. Patient currently being evaluated emergency department. On room air. He denies any complaints. No dyspnea, coughing, chest pain, hemoptysis, vision changes. No nausea, vomiting diarrhea. No confusion, lethargy or weakness. Hemodynamics are stable. Review of Systems Constitutional: Denies chills, Denies fatigue, Denies fever, Denies night sweats, Denies poor appetite, Denies weight gain, Denies weight loss Eyes: denies blurred vision, denies loss of vision Ears, nose, mouth and throat: Denies dysphagia, Denies headache, Denies nasal congestion, Denies nasal discharge, Denies post-nasal drip, Denies sinus pain, Denies sinus pressure, Denies sore throat Cardiovascular: Denies chest pain, Denies leg edema, Denies lightheadedness, Denies orthopnea, Denies palpitations, Denies paroxysmal nocturnal dyspnea, Denies syncope Respiratory: Denies congestion, Denies cough with sputum, Denies dyspnea, Denies hemoptysis, Denies home oxygen, Denies pain on inspiration Gastrointestinal: Denies abdominal pain, Denies diarrhea, Denies nausea, Denies vomiting Genitourinary: Denies dysuria, Denies flank pain, Denies hematuria Musculoskeletal: Denies limitation of motion Musculoskeletal: left: foot pain (Localized to the left great toe), absent: foot swelling Integumentary: Denies rash Neurological: Denies headaches, Denies seizures, Denies syncope Psychiatric: Denies anxiety, Denies depression Past Medical History Past Medical History: Coronary Artery Disease (CAD), Cancer, Chest Pain / Angina, CVA/TIA, GERD/Reflux, Hyperlipidemia, Hypertension, Osteoarthritis (OA), Prostate Disorder, Renal Disease Additional Past Medical History / Comment(s): L renal cancer with nephrectomy/mets L lung and sternum/no longer taking oral chemo d/t it was affecting his kidney/states he receives infusion once a month but does not know what type of infusion last dose was 01/06/25, chronic renal failure stage IV- monitored by print and pattern designer, BPH, newsome's esophagus, gastritis, dry mouth, chronic low back pain. States he had a mild stroke in 2020 had R arm and leg weakness. Arthritis in knees, hips and thumbs. Pre-diabetic. Last Myocardial Infarction Date:: 2019 History of Any Multi-Drug Resistant Organisms: None Reported Past Surgical History: Heart Catheterization, Orthopedic Surgery Additional Past Surgical History / Comment(s): L nephrectomy 2015, R HAND 2ND DIGIT LOST TOP OF FINGER IN CRUSHING INJURY, EGDs, colonoscopy, bilateral cataract removals/lens implants. Past Anesthesia/Blood Transfusion Reactions: No Reported Reaction Additional Past Anesthesia/Blood Transfusion Reaction / Comment(s): No hx of blood transfusion Past Psychological History: Depression Smoking Status: Former smoker - Past Family History Father Family Medical History: Cancer, Hypertension, Myocardial Infarction ([place]) Additional Family Medical History / Comment(s): SKIN CANCER Mother Family Medical History: Cancer Additional Family Medical History / Comment(s): breast cancer - throat cancer Sister(s) Family Medical History: Cancer Additional Family Medical History / Comment(s): skin/breast and throat cancer Medications and Allergies Home Medications Medication Instructions Recorded Confirmed Type Tamsulosin HCl [Flomax] 0.4 mg PO HS 10/12/17 01/20/25 History amLODIPine [Norvasc] 5 mg PO BID 05/25/23 01/20/25 History Aspirin 81 mg PO HS 01/16/24 01/20/25 History Rosuvastatin Calcium [Crestor] 40 mg PO HS 09/08/24 01/20/25 History HYDROcodone/APAP 10-325MG [[place] 1 tab PO Q4HR PRN 10/02/24 01/20/25 History 10-325] Allergies Allergy/AdvReac Type Severity Reaction Status Date / Time atorvastatin calcium AdvReac JOINT PAIN Verified 03/19/25 18:39 [From Lipitor] clindamycin AdvReac JOINT PAIN Verified 03/19/25 18:39 Physical Exam Vitals: Vital Signs Temp Pulse Resp BP Pulse Ox 03/19/25 21:59 73 18 138/82 96 03/19/25 18:37 97.5 F L 75 16 154/73 96 Intake and Output 03/19/25 03/19/25 03/20/25 14:59 22:59 06:59 Other: Weight 55.792 kg GENERAL EXAM: Alert, 84-year-old male, comfortable in no apparent distress. HEAD: Normocephalic and atraumatic EYES: Normal reaction of pupils, equal size. NOSE: Clear with pink turbinates. THROAT: No erythema or exudates. NECK: No masses, no JVD. CHEST: No chest wall deformity. LUNGS: Equal air entry with no crackles, wheeze, rhonchi or dullness. On room air no conversational dyspnea or accessory muscle use.. CVS: S1 and S2 normal with no audible murmur, regular rhythm. No extra heart sounds ABDOMEN: No hepatosplenomegaly, active bowel sounds, no guarding or rigidity. SPINE: No scoliosis or deformity SKIN: No rashes CENTRAL NERVOUS SYSTEM: No focal deficits, tone is normal in all 4 extremities. EXTREMITIES: There is no peripheral edema, clubbing, or cyanosis. Peripheral pulses are intact. Results - Laboratory Findings CBC and BMP: 03/19/25 19:31 03/19/25 19:31 Abnormal lab findings: Abnormal Labs 03/19/25 03/19/25 03/19/25 19:31 19:31 22:34 RBC 3.85 L Hgb 11.3 L Hct 33.6 L Monocytes # 1.27 H Eosinophils # 1.47 H Sodium 134 L BUN 41 H Creatinine 1.94 H Calcium 12.4 H Ionized Calcium [place] 6.5 H* Total Protein 6.0 L Assessment and Plan Assessment: Severe hypercalcemia, received dose of IV pamidronate Acute on chronic kidney disease Mediastinal lymphadenopathy, previously underwent nondiagnostic EBUS bronchosc opy on 11/27/2024. Followed up with cardiothoracic surgery and underwent mediastinoscopy with biopsy of pretracheal lymph node. Pathology positive for nonnecrotizing granulomatous inflammation. Negative for carcinoma. Fungal and acid-fast bacilli cultures were negative. Possible concern for sarcoidosis History of metastatic renal cell carcinoma with previous left nephrectomy Chronic kidney disease stage III Hypertension History of hyperlipidemia History of nonobstructive coronary artery disease History of BPH Plan: Above mentioned diagnostic tests reviewed Not currently on oral steroids From a pulmonary standpoint, seems to be asymptomatic. On room air, obtain chest x ray Hypercalcemia being managed by nephrology Received a dose of pamidronate Continue IV hydration Case to be discussed with my supervising physician, additional recommendations forthcoming I have personally seen and examined the patient, performed the documentation and the assessment and plan as written. Number of minutes spent on the visit:20 Time with Patient: Greater than 30
--- NOTE | 2025-03-20 07:12 | XR ---
EXAMINATION TYPE: XR chest 1V DATE OF EXAM: 03/20/2025 5:24 AM COMPARISON: Chest radiographs from 01/20/2025, PET CT 10/17/2024 TECHNIQUE: XR chest 1V Portable AP radiograph of the chest. CLINICAL INDICATION:Male, 84 years old with history of mediastinal lymphadenopathy; FINDINGS: Lungs/Pleura: There is no evidence of pleural effusion, focal consolidation, or pneumothorax. Simila r interstitial changes within the upper and midlungs bilaterally. Pulmonary vascularity: Unremarkable. Heart/mediastinum: Cardiomediastinal silhouette is prominent in size. Musculoskeletal: No acute osseous pathology. IMPRESSION: 1. Similar interstitial changes within the upper and mid lungs. Differential includes atypical pneum onia, interstitial pneumonitis, hypersensitivity pneumonitis and other etiologies. 2. Stable prominent mediastinal silhouette related to known mediastinal and hilar adenopathy. [facility], , 03/20/2025 7:10 AM
[2025-03-20 08:21] LABS: Basophils # (A) 0.10 10*3/uL (0.00-0.10); Basophils % (A) 1.2 %; Eosinophils # (A) 1.43 10*3/uL (0.04-0.35); Eosinophils % (A) 17.5 %; HCT 35.5 % (39.6-50.0); HGB 11.9 g/dL (13.0-17.0); Lymphocytes # (A) 1.55 10*3/uL (0.90-5.00); Lymphocytes % (A) 18.9 %; MCH 29.3 pg (27.0-32.0); MCHC 33.5 g/dL (32.0-37.0); MCV 87.4 fL (80.0-97.0); Monocytes # (A) 0.87 10*3/uL (0.20-1.00); Monocytes % (A) 10.6 %; Neutrophils # (A) 4.21 10*3/uL (1.80-7.70); Neutrophils % (A) 51.4 %; Platelet Count 296 10*3/uL (140-440); RBC 4.06 10*6/uL (4.40-5.60); RDW 16.5 % (11.5-14.5); WBC 8.19 10*3/uL (4.50-10.00)
[2025-03-20 08:42] LABS: ALT 15 U/L (4-49); AST 21 U/L (17-59); African American GFR (CKD) 46 (>60 ml/min/1.73 sqM); Albumin 3.5 g/dL (3.5-5.0); Alkaline Phosphatase 80 U/L (38-126); Anion Gap 7 mmol/L; Blood Urea Nitrogen 32 mg/dL (9-20); Calcium 11.2 mg/dL (8.4-10.2); Carbon Dioxide 25 mmol/L (22-30); Chloride 107 mmol/L (98-107); Glucose 104 mg/dL (74-99); Magnesium 2.0 mg/dL (1.6-2.3); Non-African American GFR(CKD) 40 (>60 ml/min/1.73 sqM); Potassium 3.9 mmol/L (3.5-5.1); Sodium 139 mmol/L (137-145); Total Protein 6.1 g/dL (6.3-8.2)
--- NOTE | 2025-03-20 11:00 | P.NPCON ---
History of Present Illness - Reason for Consult acute renal failure, chronic renal failure - History of Present Illness Reason for consultation: Acute kidney injury on chronic kidney disease and hypercalcemia History of present illness: Patient is a 84-year-old male seen in renal consultation for acute kidney injury on chronic kidney disease and hypercalcemia. Patient has chronic kidney disease stage IIIb with baseline creatinine 1.6-1.8 secondary to solitary kidney. Patient came to the hospital due to abnormal labs. Patient's calcium level was elevated at 12.3 and he was advised to go to the hospital. He received a fluid bolus and pamidronate yesterday and his calcium level is improved to 11.2 today. Patient does have history of renal cancer and follows with oncology outpatient. Additionally he also had recent bronchoscopy done which showed nonnecrotizing granulomatous inflammation concerning for sarcoidosis. Patient denies taking any calcium or vitamin D supplementation at home. He admits to good urine output. No gross hematuria or dysuria. Denies use of NSAIDs. Vital signs are stable. General: No acute distress. HEENT: Head exam is unremarkable. LUNGS: No audible rhonchi or wheezes. HEART: Rate and Rhythm are regular. ABDOMEN: Nontender. EXTREMITITES: No edema. Past Medical History Past Medical History: Coronary Artery Disease (CAD), Cancer, Chest Pain / Angina, CVA/TIA, GERD/Reflux, Hyperlipidemia, Hypertension, Osteoarthritis (OA), Prostate Disorder, Renal Disease Additional Past Medical History / Comment(s): L renal cancer with nephrectomy/mets L lung and sternum/no longer taking oral chemo d/t it was affecting his kidney/states he receives infusion once a month but does not know what type of infusion last dose was 01/06/25, chronic renal failure stage IV- monitored by piling cutter, BPH, newsome's esophagus, gastritis, dry mouth, chronic low back pain. States he had a mild stroke in 2020 had R arm and leg weakness. Arthritis in knees, hips and thumbs. Pre-diabetic. Last Myocardial Infarction Date:: 2019 History of Any Multi-Drug Resistant Organisms: None Reported Past Surgical History: Heart Catheterization, Orthopedic Surgery Additional Past Surgical History / Comment(s): L nephrectomy 2015, R HAND 2ND DIGIT LOST TOP OF FINGER IN CRUSHING INJURY, EGDs, colonoscopy, bilateral catar act removals/lens implants. Past Anesthesia/Blood Transfusion Reactions: No Reported Reaction Additional Past Anesthesia/Blood Transfusion Reaction / Comment(s): No hx of blood transfusion Past Psychological History: Depression Smoking Status: Former smoker - Past Family History Father Family Medical History: Cancer, Hypertension, Myocardial Infarction ([place]) Additional Family Medical History / Comment(s): SKIN CANCER Mother Family Medical History: Cancer Additional Family Medical History / Comment(s): breast cancer - throat cancer Sister(s) Family Medical History: Cancer Additional Family Medical History / Comment(s): skin/breast and throat cancer Medications and Allergies Home Medications Medication Instructions Recorded Confirmed Type Tamsulosin HCl [Flomax] 0.4 mg PO HS 10/12/17 03/20/25 History amLODIPine [Norvasc] 5 mg PO BID 05/25/23 03/20/25 History Aspirin 81 mg PO HS 01/16/24 03/20/25 History Rosuvastatin Calcium [Crestor] 40 mg PO HS 09/08/24 03/20/25 History HYDROcodone/APAP 10-325MG [Qulin 1 tab PO Q4HR PRN 10/02/24 03/20/25 History 10-325] Acetaminophen Tab [Tylenol Tab] 1,000 mg PO TID PRN 03/20/25 03/20/25 History Brimonidine Tartrate/Timolol 1 drop BOTH EYES BID 03/20/25 03/20/25 History [Brimonidine-Timolol 0.2%-0.5%] Diclofenac Sodium Gel [Voltaren 1% 1 applic TOPICAL TID PRN 03/20/25 03/20/25 History Gel] Fluticasone Nasal Kinsey [Flonase 1 spray EA NOSTRIL HS PRN 03/20/25 03/20/25 His tory Nasal Kinsey] Lidocaine 4% Cream 1 applic TOPICAL BID PRN 03/20/25 03/20/25 History Suplena 1 can PO DAILY 03/20/25 03/20/25 History Allergies Allergy/AdvReac Type Severity Reaction Status Date / Time atorvastatin calcium AdvReac JOINT PAIN Verified 03/20/25 07:02 [From Lipitor] clindamycin AdvReac JOINT PAIN Verified 03/20/25 07:02 Physical Exam Vitals: Vital Signs Temp Pulse Pulse Resp BP BP Pulse Ox 03/20/25 08:01 98.5 F 72 13 167/84 98 03/20/25 06:26 97.4 F L 64 17 141/85 96 03/20/25 05:00 62 18 114/58 95 03/20/25 02:00 78 18 140/87 96 03/20/25 00:00 71 14 122/64 96 03/19/25 21:59 73 18 138/82 96 03/19/25 18:37 97.5 F L 75 16 154/73 96 Intake and Output 03/19/25 03/20/25 03/20/25 22:59 06:59 14:59 Intake Total 120 Balance 120 Intake: Oral 120 Other: Weight 55.792 kg Results - Lab Results Most recent lab results Calcium 11.2 mg/dL (8.4-10.2) H 03/20/25 08:11 Magnesium 2.0 mg/dL (1.6-2.3) 03/20/25 08:11 03/20/25 08:11 03/20/25 08:11 Assessment and Plan Plan: Assessment: 1. Acute kidney injury secondary to hypercalcemia induced ATN. Renal function improved. Creatinine 1.59 today. UA benign. 2. Chronic kidney disease stage IIIb with baseline creatinine 1.6-1.8 secondary to solitary kidney. 3. Renal cancer. Follows with oncology outpatient. 4. 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 Patient did have an elevated NICO level outpatient. PTH related peptide was negative. 5. Hypertension with chronic kidney disease. 6. History of BPH. Plan: Maintain normal saline at 50 cc an hour. Resume amlodipine. Resume Flomax. Avoid nephrotoxins. Status post pamidronate given March 19, 2025. Oncology and pulmonology consulted. Thank you for the consultation. I will continue to follow the patient with you during his hospital stay.
[2025-03-20] MEDS ORDERED: DICLOFENAC SODIUM GEL 100 GM TUBE TOPICAL PRN (11:05)
[2025-03-20] MEDS ORDERED: FLUTICASONE NASAL 50MCG/SPRAY 16GM BTL EA NOSTRIL PRN (11:06)
--- NOTE | 2025-03-20 11:08 | P.PN ---
Subjective Progress Note Date: 03/20/25 Hospital Course: 89-year-old male with past medical history of metastatic renal cell carcinoma status post left nephrectomy, CAD, GERD, HLD, HTN, osteoarthritis, CKD 3, BPH, chronic low back pain,resented to the emergency department due to abnormal labs . Patient apparently has been here back in September for the same issue which is hypercalcemia. He had extensive investigation to find out the secondary causes of his hypercalcemia. Oncology back then did order labs for multiple myeloma. He was discharged with a calcium level of 9.2. Patient presents today with calcium value of 12.4. His albumin level is 3.5. BUN of 41 and creatinine 1.94 . 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 He recommended bisphosphonate and IV fluid hydration along with oncology and pulmonology consult. Upon arrival to the ED, patient's blood pressure was slightly elevated with a systolic blood pressure of 154. He reports feeling weak but no falls at home . Nephrology will be consulted as well. Patient received IV bisphosphonates, started on fluids. 03/20: Seen and examined at bedside, RN present during examination. Patient complains of left big toe pain, nonradiating, no surrounding erythema or swelling. Otherwise he has no complaints. He is afebrile with blood pressure 141/85, SpO2 96 on room air. Work showedcount, stable hemoglobin 11.9, normal platelet count, sodium 139, potassium normal, creatinine improving 159, calcium improved to 11.2, AST and ALT within normal. Pulmonology consult note reviewed, chest x-ray showed similar interstitial changes in the upper and mid lungs, known mediastinal and hilar adenopathy. Will order left foot x-ray and uric acid levels. Nephrology note reviewed. Pertinent positives and negatives as discussed above, a complete review of systems was performed and all other systems are negative. Vitals Signs Reviewed. General: [nontoxic], [no distress], [appears at stated age] Derm: [warm], [dry] Head: [atraumatic], [normocephalic], [symmetric] Eyes: [EOMI], [no lid lag], [anicteric sclera] Mouth: [no lip lesion], [mucus membranes moist] Cardiovascular: [S1S2 reg], [no murmur] Lungs: [CTA bilateral], [no rhonchi, no rales] , [no accessory muscle use] Abdominal: [soft], [ nontender to palpation], [no guarding], [no appreciable organomegaly] Ext: [no gross muscle atrophy], [no edema], [no contractures], left big toe tender to palpation, no erythema, swelling Neuro: [ CN II-XI grossly intact], [no focal neuro deficits] Psych: [Alert], [oriented], [appropriate affect] Assessment and Plan: BEVERLY on CKD 3B secondary to ATN, hypercalcemia Hypercalcemia of malignancy versus possible systemic disease - Nephrology and oncology consulted, appreciate recommendations, patient is s/p pamidronate - Calcium improving, monitor BMP daily - Maintain NS at 50 cc/h -Discussed management with RN, social work Left thumb pain -Appears to be chronic, patient uses Voltaren gel as outpatient -Follows with podiatry -Will check x-ray and uric acid level, continue Voltaren gel, Tylenol, resume home [place] 10 every 4 hours as needed Hypertension Hyperlipidemia BPH History of CAD -Resume home Flomax 0.4 mg daily, amlodipine 5 mg p.o. daily, aspirin 81 mg daily, rosuvastatin 40 mg daily History of metastatic renal cell carcinoma status post left nephrectomy: Oncology consulted, appreciate recommendations DVT ppx: SCD Code status: Full code Anticipated discharge place: TBD Anticipated discharge time: TBD Objective - Vital Signs Vital signs: Vital Signs Temp 98.5 F 03/20/25 08:01 Pulse 72 03/20/25 08:01 Resp 13 03/20/25 08:01 BP 167/84 03/20/25 08:01 Pulse Ox 98 03/20/25 08:01 FiO2 Intake & Output 03/19/25 03/20/25 03/20/25 18:59 06:59 18:59 Intake Total 120 Balance 120 Weight 55.792 kg Intake: Oral 120 - Labs CBC & Chem 7: 03/20/25 08:11 03/20/25 08:11 Labs: Abnormal Lab Results - Last 24 Hours (Table) 03/19/25 03/19/25 03/19/25 Range/Units 19:31 19:31 22:34 RBC 3.85 L (4.40-5.60) 10*6/uL Hgb 11.3 L (13.0-17.0) g/dL Hct 33.6 L (39.6-50.0) % Monocytes # 1.27 H (0.20-1.00) 10*3/uL Eosinophils # 1.47 H (0.04-0.35) 10*3/uL Sodium 134 L (137-145) mmol/L BUN 41 H (9-20) mg/dL Creatinine 1.94 H (0.66-1.25) mg/dL Glucose (74-99) mg/dL Calcium 12.4 H (8.4-10.2) mg/dL Ionized Calcium Mellisa 6.5 H* (4.5-5.3) mg/dL Total Protein 6.0 L (6.3-8.2) g/dL 03/20/25 03/20/25 Range/Units 08:11 08:11 RBC 4.06 L (4.40-5.60) 10*6/uL Hgb 11.9 L (13.0-17.0) g/dL Hct 35.5 L (39.6-50.0) % Monocytes # (0.20-1.00) 10*3/uL Eosinophils # 1.43 H (0.04-0.35) 10*3/uL Sodium (137-145) mmol/L BUN 32 H (9-20) mg/dL Creatinine 1.59 H (0.66-1.25) mg/dL Glucose 104 H (74-99) mg/dL Calcium 11.2 H (8.4-10.2) mg/dL Ionized Calcium Mellisa (4.5-5.3) mg/dL Total Protein 6.1 L (6.3-8.2) g/dL
[2025-03-20] MEDS: TAMSULOSIN 0.4 MG CAP.ER.24H PO SCH (11:46)
[2025-03-20 12:08] LABS: Uric Acid 6.3 mg/dL (3.5-8.5)
--- NOTE | 2025-03-20 12:38 | XR ---
EXAMINATION TYPE: XR foot complete LT DATE OF EXAM: 03/20/2025 12:25 PM INDICATION: Patient age:Male; 84 years old; Reason for study: left big toe pain; PHH. pain COMPARISON: Left foot radiograph 11/23/2011 TECHNIQUE: The left foot was examined in the AP, oblique, and lateral projections. FINDINGS: Diffuse bone demineralization. No evidence of any acute osseous pathology. No evidence of soft tissu e swelling. No osseous erosions. Advanced osteoarthritic change at the first MTP joint with joint spa ce narrowing and marginal osteophytosis. IMPRESSION: 1. No evidence of acute fracture. 2. Severe osteoarthritic changes of the first MTP joint. [facility], , 03/20/2025 12:36 PM
[2025-03-20] MEDS: predniSONE 20 MG TAB PO SCH (15:17)
[2025-03-20] MEDS: NON FORMULARY DRUG (Rosuvastatin Calcium [Crestor] 40 MG Tablet) PO SCH (21:08)
[2025-03-20] MEDS: ASPIRIN 81 MG PO SCH (21:08)
[2025-03-20] MEDS: BRIMONIDINE TARTRATE 0.2% DROPS 5 ML BTL BOTH EYES SCH (21:08)
[2025-03-20] MEDS: amLODIPine 5 MG TAB PO SCH (21:08)
[2025-03-20] MEDS: TIMOLOL 0.5% OPHTH DROPS 5 ML BTL BOTH EYES SCH (21:08)
[2025-03-21 09:30] LABS: ALT 13 U/L (10-49); AST 17 U/L (14-35); Albumin 3.5 g/dL (3.8-4.9); Albumin/Globulin Ratio 1.59 Ratio (1.60-3.17); Alkaline Phosphatase 78 U/L (41-126); Anion Gap 12.80 mmol/L (4.00-12.00); BUN/Creat Ratio 21.19 Ratio (12.00-20.00); Blood Urea Nitrogen 33.9 mg/dL (9.0-27.0); Calcium 10.5 mg/dL (8.7-10.3); Carbon Dioxide 20.2 mmol/L (21.6-31.8); Chloride 107 mmol/L (96-109); Globulin 2.2 g/dL (1.6-3.3); Glucose 117 mg/dL (70-110); Magnesium 2.1 mg/dL (1.5-2.4); Potassium 4.1 mmol/L (3.5-5.5); Sodium 140 mmol/L (135-145); Total Protein 5.7 g/dL (6.2-8.2)
[2025-03-21 09:37] LABS: Basophils % (A) 0.3 %; Eosinophils % (A) 0.1 %; HCT 36.0 % (39.6-50.0); HGB 11.6 g/dL (13.0-17.0); Lymphocytes % (A) 16.9 %; MCH 28.2 pg (27.0-32.0); MCHC 32.2 g/dL (32.0-37.0); MCV 87.4 FL (80.0-97.0); Monocytes % (A) 7.9 %; NRBC Per 100 WBC 0 X 10*3/uL (0.00-0.01); Neutrophils # (A) 5.80 X 10*3/uL (1.80-7.70); Neutrophils % (A) 74.2 %; Platelet Count 320 X 10*3/uL (140-440); RBC 4.12 X 10*6/uL (4.40-5.60); RDW 16.5 % (11.5-14.5); WBC 7.82 X 10*3/uL (4.50-10.00)
[2025-03-21 09:38] LABS: Basophils # (A) 0.02 X 10*3/uL (0.00-0.10); Eosinophils # (A) 0.01 X 10*3/uL (0.04-0.35); Immature Grans, Automated 0.60 %; Lymphocytes # (A) 1.32 X 10*3/uL (0.90-5.00); Monocytes # (A) 0.62 X 10*3/uL (0.20-1.00)
--- NOTE | 2025-03-21 10:10 | P.PN ---
Subjective Patient is seen in follow-up for chronic kidney disease and hypercalcemia. Renal function at baseline. Calcium level trending down. No active complaints. Vital signs are stable. General: No acute distress. HEENT: Head exam is unremarkable. LUNGS: No audible rhonchi or wheezes. HEART: Rate and Rhythm are regular. ABDOMEN: Nontender. EXTREMITITES: No edema. Objective - Vital Signs Vital signs: Vital Signs Temp 97.9 F 03/21/25 08:00 Pulse 70 03/21/25 08:00 Resp 15 03/21/25 08:00 BP 119/68 03/21/25 08:00 Pulse Ox 98 03/21/25 08:00 FiO2 Intake & Output 03/20/25 03/21/25 03/21/25 18:59 06:59 18:59 Output Total 300 500 Balance -300 -500 Weight 55.792 kg Output: Urine 300 500 Other: Voiding Method Toilet Toilet Urinal - Labs CBC & Chem 7: 03/21/25 06:35 03/21/25 06:35 Labs: Abnormal Lab Results - Last 24 Hours (Table) 03/20/25 03/21/25 03/21/25 Range/Units 11:32 06:35 06:35 RBC 4.12 L (4.40-5.60) X 10*6/uL Hgb 11.6 L (13.0-17.0) g/dL Hct 36.0 L (39.6-50.0) % RDW 16.5 H (11.5-14.5) % Immature Gran # 0.05 H (0.00-0.04) X 10*3/uL Eosinophils # 0.01 L (0.04-0.35) X 10*3/uL Carbon Dioxide 20.2 L (21.6-31.8) mmol/L Anion Gap 12.80 H (4.00-12.00) mmol/L BUN 33.9 H (9.0-27.0) mg/dL Creatinine 1.6 H (0.6-1.5) mg/dL Est GFR (CKD-EPI) 42 L (>=60) BUN/Creatinine Ratio 21.19 H (12.00-20.00) Ratio Glucose 117 H (70-110) mg/dL Calcium 10.5 H (8.7-10.3) mg/dL Total Protein 5.7 L (6.2-8.2) g/dL Albumin 3.5 L (3.8-4.9) g/dL Albumin/Globulin Ratio 1.59 L (1.60-3.17) Ratio PTH Intact 11.3 L (14.0-72.0) pg/mL Assessment and Plan Plan: Assessment: 1. Acute kidney injury secondary to hypercalcemia induced ATN. Renal function stable. Creatinine 1.6 today. UA benign. 2. Chronic kidney disease stage IIIb with baseline creatinine 1.6-1.8 secondary to solitary kidney. 3. Renal cancer. Follows with oncology outpatient. 4. 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 Patient did have an elevated NICO level outpatient. PTH related peptide was negative. Vitamin D level 32 this admission. PTH appropriately suppressed. Improving. 5. Hypertension with chronic kidney disease. Controlled. 6. History of BPH. Plan: Maintain normal saline at 50 cc an hour. Avoid nephrotoxins. Status post pamidronate given March 19, 2025. Oncology and pulmonology following.
[2025-03-21] MEDS: SODIUM CHLORIDE 0.9% 1,000 ML IV SCH (12:44)
[2025-03-21 12:55] VITALS: RESP 16
--- NOTE | 2025-03-21 12:55 | P.PN ---
Subjective Progress Note Date: 03/21/25 Patient is an 83-year-old male with past medical history significant for metastatic renal cell carcinoma with previous left nephrectomy, chronic kidney disease, hypertension, hyperlipidemia, nonobstructive coronary artery disease. He has been following up on an outpatient basis in the pulmonary office for enlarged mediastinal lymphadenopathy, including a 2 cm precarinal lymph node. PET scan done on 10/17/2024 showing scattered metabolically active mediastinal lymph nodes. Did undergo EBUS bronchoscopy on 11/27/2024 and specimen was nondiagnostic for carcinoma or granulomatous inflammation. Subsequently, followed up with cardiothoracic surgery and underwent mediastinoscopy with biopsy of pretracheal lymph node. Pathology positive for nonnecrotizing granulomatous inflammation. Negative for carcinoma. Fungal and acid-fast bacilli cultures were negative. Patient was sent to the emergency department yesterday by his online affiliate marketing manager. Reportedly, had abnormal labs including severely elevated calcium on lab draw. Of note, previously had elevated calcium on previous hospitalization in September. On arrival to the ED did receive dose of biphosphonate and is being hydrated with normal saline at 50 cc/h. No calcitonin was given. Labs from admission including a CBC with a WBC count of 7.7, hemoglobin 11.3, platelets 278. CMP with sodium 134, potassium 4.5, chloride 100, serum bicarb 26, BUN 41, creatinine 1.94, glucose 84. Calcium 12.4. Ionized calcium 6.5. Urinalysis unremarkable. EKG: Normal sinus rhythm, rate 75 bpm. QTc 395 ms. Patient currently being evaluated emergency department. On room air. He denies any complaints. No dyspnea, coughing, chest pain, hemoptysis, vision changes. No nausea, vomiting diarrhea. No confusion, lethargy or weakness. Hemodynamics are stable. The patient is seen today March 21, 2025 in follow-up on the regular medical floo r. He is currently resting in bed. Awake and alert in no acute distress. Maintaining good O2 saturations in the 90s on room air oxygen. He denies any worsening shortness of breath, cough or congestion. White count 7.8. Hemoglobin 11.6. Platelets 320. Sodium 140. Potassium 4.1. Bicarb 20. BUN 34. Creatinine 1.6. Glucose 117. Calcium 10.5. He remains on normal saline at 50 mL/h. Heparin for DVT prophylaxis. [place] for pain control. Objective - Vital Signs Vital signs: Vital Signs Temp 97.9 F 03/21/25 08:00 Pulse 70 03/21/25 08:00 Resp 15 03/21/25 08:00 BP 119/68 03/21/25 08:00 Pulse Ox 98 03/21/25 08:00 FiO2 Intake & Output 03/20/25 03/21/25 03/21/25 18:59 06:59 18:59 Output Total 300 500 Balance -300 -500 Weight 55.792 kg Output: Urine 300 500 Other: Voiding Method Toilet Toilet Urinal - Exam GENERAL EXAM: Alert, pleasant 84-year-old male, sitting up in bed, on room air oxygen, comfortable in no apparent distress. HEAD: Normocephalic and atraumatic EYES: Normal reaction of pupils, equal size. NOSE: Clear with pink turbinates. THROAT: No erythema or exudates. NECK: No masses, no JVD. CHEST: No chest wall deformity. LUNGS: Equal air entry with no crackles, wheeze, rhonchi or dullness. No conv ersational dyspnea or accessory muscle use. CVS: S1 and S2 normal with no audible murmur, regular rhythm. No extra heart sounds ABDOMEN: No hepatosplenomegaly, active bowel sounds, no guarding or rigidity. SPINE: No scoliosis or deformity SKIN: No rashes CENTRAL NERVOUS SYSTEM: No focal deficits, tone is normal in all 4 extremities. EXTREMITIES: There is no peripheral edema, clubbing, or cyanosis. Peripheral pulses are intact. - Labs CBC & Chem 7: 03/21/25 06:35 03/21/25 06:35 Labs: Abnormal Lab Results - Last 24 Hours (Table) 03/20/25 03/21/25 03/21/25 Range/Units 11:32 06:35 06:35 RBC 4.12 L (4.40-5.60) X 10*6/uL Hgb 11.6 L (13.0-17.0) g/dL Hct 36.0 L (39.6-50.0) % RDW 16.5 H (11.5-14.5) % Immature Gran # 0.05 H (0.00-0.04) X 10*3/uL Eosinophils # 0.01 L (0.04-0.35) X 10*3/uL Carbon Dioxide 20.2 L (21.6-31.8) mmol/L Anion Gap 12.80 H (4.00-12.00) mmol/L BUN 33.9 H (9.0-27.0) mg/dL Creatinine 1.6 H (0.6-1.5) mg/dL Est GFR (CKD-EPI) 42 L (>=60) BUN/Creatinine Ratio 21.19 H (12.00-20.00) Ratio Glucose 117 H (70-110) mg/dL Calcium 10.5 H (8.7-10.3) mg/dL Total Protein 5.7 L (6.2-8.2) g/dL Albumin 3.5 L (3.8-4.9) g/dL Albumin/Globulin Ratio 1.59 L (1.60-3.17) Ratio PTH Intact 11.3 L (14.0-72.0) pg/mL Assessment and Plan Assessment: Severe hypercalcemia, received dose of IV pamidronate, trending down Acute on chronic kidney disease Mediastinal lymphadenopathy, previously underwent nondiagnostic EBUS bronchoscopy on 11/27/2024. Followed up with cardiothoracic surgery and underwent mediastinoscopy with biopsy of pretracheal lymph node. Pathology positive for nonnecrotizing granulomatous inflammation. Negative for carcinoma. Fungal and acid-fast bacilli cultures were negative. Possible concern for sarcoidosis History of metastatic renal cell carcinoma with previous left nephrectomy Chronic kidney disease stage III Hypertension History of hyperlipidemia History of nonobstructive coronary artery disease History of BPH Plan: The patient was seen and evaluated Chest x-ray, labs and medications were reviewed Remained stable and on room air oxygen Nephrology following regarding hypercalcemia Remains on normal saline at 50 mL/h Home once cleared by nephrology I have personally seen and examined the patient, performed the documentation and the assessment and plan as written. Number of minutes spent on the visit: 10 Dictation was produced using [employer] dictation software. Please excuse any grammatical, word or spelling errors.
--- NOTE | 2025-03-21 13:17 | P.PN ---
Subjective Progress Note Date: 03/21/25 Most recent the patient feels well. He denies any new complaints. No history of any fever/chills/nausea/vomiting. He is having regular bowel movements. Objective - Vital Signs Vital signs: Vital Signs Temp 97.4 F L 03/21/25 12:54 Pulse 64 03/21/25 12:54 Resp 16 03/21/25 12:54 BP 144/70 03/21/25 12:54 Pulse Ox 96 03/21/25 12:54 FiO2 Intake & Output 03/20/25 03/21/25 03/21/25 18:59 06:59 18:59 Output Total 300 500 Balance -300 -500 Weight 55.792 kg Output: Urine 300 500 Other: Voiding Method Toilet Toilet Urinal - Constitutional General appearance: Present: no acute distress - EENT Eyes: Present: EOMI ENT: Present: hearing grossly normal, normal oropharynx - Respiratory Respiratory: bilateral: diminished (Suggestive of COPD) - Cardiovascular Rhythm: regular Heart sounds: normal: S1, S2 - Gastrointestinal General gastrointestinal: Present: soft - Integumentary Integumentary: Present: normal - Neurologic Neurologic: Present: CNII-XII intact - Musculoskeletal Musculoskeletal: Present: generalized weakness, strength equal bilaterally - Psychiatric Psychiatric: Present: A&O x's 3, appropriate affect - Labs CBC & Chem 7: 03/21/25 06:35 03/21/25 06:35 Labs: Abnormal Lab Results - Last 24 Hours (Table) 03/20/25 03/21/25 03/21/25 Range/Units 11:32 06:35 06:35 RBC 4.12 L (4.40-5.60) X 10*6/uL Hgb 11.6 L (13.0-17.0) g/dL Hct 36.0 L (39.6-50.0) % RDW 16.5 H (11.5-14.5) % Immature Gran # 0.05 H (0.00-0.04) X 10*3/uL Eosinophils # 0.01 L (0.04-0.35) X 10*3/uL Carbon Dioxide 20.2 L (21.6-31.8) mmol/L Anion Gap 12.80 H (4.00-12.00) mmol/L BUN 33.9 H (9.0-27.0) mg/dL Creatinine 1.6 H (0.6-1.5) mg/dL Est GFR (CKD-EPI) 42 L (>=60) BUN/Creatinine Ratio 21.19 H (12.00-20.00) Ratio Glucose 117 H (70-110) mg/dL Calcium 10.5 H (8.7-10.3) mg/dL Total Protein 5.7 L (6.2-8.2) g/dL Albumin 3.5 L (3.8-4.9) g/dL Albumin/Globulin Ratio 1.59 L (1.60-3.17) Ratio PTH Intact 11.3 L (14.0-72.0) pg/mL Assessment and Plan (1) Hypercalcemia Narrative/Plan: The patient's hypercalcemia appears to be due to sarcoidosis like granulomatous inflammation, diagnosed on biopsy of the mediastinal lymph nodes. The patient does not have malignant hypercalcemia, with very limited metastatic involvement, that has been stable over many years on current treatment. - Patient's case was discussed with nephrology prior to admission. He has been seen by pulmonary medicine, and has been placed on steroids. With IV bisphosphonate, calcium is trending down. Creatinine is stable. - Defer to pulmonary medicine for steroid management. Current Visit: Yes Status: Acute Code(s): E83.52 - HYPERCALCEMIA SNOMED Code(s): 40243481 (2) Malignancy Narrative/Plan: The patient has metastatic kidney cancer, with very limited areas of metastasis to the left sternum. This has been quite stable on current ICI treatment. There was concern for progression in the mediastinum and the patient initially developed hypercalcemia. However, as noted above, biopsy of the mediastinal nodes confirmed granulomatous inflammation, and rule out malignancy -As the patient is currently on steroids which will counteract the effect of ICI, his treatment will be held. He will plan on resuming once he is tapered off steroids, or the dose is reduced to 10 mg of prednisone per day or lower. - He was advised to follow-up in the office as previously scheduled, discharge. Current Visit: Yes Status: Acute Code(s): C80.1 - MALIGNANT (PRIMARY) NEOPLASM, UNSPECIFIED SNOMED Code(s): 910384804
--- NOTE | 2025-03-21 13:34 | P.PN ---
Subjective Progress Note Date: 03/21/25 Hospital Course: 89-year-old male with past medical history of metastatic renal cell carcinoma status post left nephrectomy, CAD, GERD, HLD, HTN, osteoarthritis, CKD 3, BPH, chronic low back pain,resented to the emergency department due to abnormal labs . Patient apparently has been here back in September for the same issue which is hypercalcemia. He had extensive investigation to find out the secondary causes of his hypercalcemia. Oncology back then did order labs for multiple myeloma. He was discharged with a calcium level of 9.2. Patient presents today with calcium value of 12.4. His albumin level is 3.5. BUN of 41 and creatinine 1.94 . Patient's paediatric physiotherapist referred him to the ER for further workup and management. He recommended bisphosphonate and IV fluid hydration along with oncology and pulmonology consult. Upon arrival to the ED, patient's blood pressure was slightly elevated with a systolic blood pressure of 154. He reports feeling weak but no falls at home . Nephrology will be consulted as well. Patient received IV bisphosphonates, started on fluids. Complaining of left big toe pain, appears to be chronic issue, x-ray showed severe osteoarthritic changes, uric acid WNL,. 7/: Seen examined at bedside, feels well, no new complaints. Discussed with nephrology, patient to be continued on normal saline 50 cc/h, further recommendations from pulmonology regarding concern for sarcoidosis. Patient was started on prednisone 40 mg daily. Pertinent positives and negatives as discussed above, a complete review of systems was performed and all other systems are negative. Vitals Signs Reviewed. General: [nontoxic], [no distress], [appears at stated age] Derm: [warm], [dry] Head: [atraumatic], [normocephalic], [symmetric] Eyes: [EOMI], [no lid lag], [anicteric sclera] Mouth: [no lip lesion], [mucus membranes moist] Cardiovascular: [S1S2 reg], [no murmur] Lungs: [CTA bilateral], [no rhonchi, no rales] , [no accessory muscle use] Abdominal: [soft], [ nontender to palpation], [no guarding], [no appreciable organomegaly] Ext: [no gross muscle atrophy], [no edema], [no contractures], left big toe tender to palpation, no erythema, swelling Neuro: [ CN II-XI grossly intact], [no focal neuro deficits] Psych: [Alert], [oriented], [appropriate affect] Assessment and Plan: [place] on CKD 3B secondary to ATN, hypercalcemia Hypercalcemia of malignancy versus possible systemic disease - Nephrology and oncology consulted, appreciate recommendations, patient is s/p pamidronate - Calcium improving, monitor BMP daily - Maintain NS at 50 cc/h -Prednisone 40 mg daily Left thumb pain secondary to osteoarthritis, chronic - Continue Voltaren gel -Follows with podiatry - X-ray and uric acid as above Hypertension Hyperlipidemia BPH History of CAD -Resume home Flomax 0.4 mg daily, amlodipine 5 mg p.o. daily, aspirin 81 mg daily, rosuvastatin 40 mg daily History of metastatic renal cell carcinoma status post left nephrectomy: Oncology consulted, appreciate recommendations DVT ppx: SCD Code status: Full code Anticipated discharge place: Home Anticipated discharge time: 24 hours Objective - Vital Signs Vital signs: Vital Signs Temp 97.4 F L 03/21/25 12:54 Pulse 64 03/21/25 12:54 Resp 16 03/21/25 12:54 BP 144/70 03/21/25 12:54 Pulse Ox 96 03/21/25 12:54 FiO2 Intake & Output 03/20/25 03/21/25 03/21/25 18:59 06:59 18:59 Output Total 300 500 Balance -300 -500 Weight 55.792 kg Output: Urine 300 500 Other: Voiding Method Toilet Toilet Urinal - Labs CBC & Chem 7: 03/21/25 06:35 03/21/25 06:35 Labs: Abnormal Lab Results - Last 24 Hours (Table) 03/20/25 03/21/25 03/21/25 Range/Units 11:32 06:35 06:35 RBC 4.12 L (4.40-5.60) X 10*6/uL Hgb 11.6 L (13.0-17.0) g/dL Hct 36.0 L (39.6-50.0) % RDW 16.5 H (11.5-14.5) % Immature Gran # 0.05 H (0.00-0.04) X 10*3/uL Eosinophils # 0.01 L (0.04-0.35) X 10*3/uL Carbon Dioxide 20.2 L (21.6-31.8) mmol/L Anion Gap 12.80 H (4.00-12.00) mmol/L BUN 33.9 H (9.0-27.0) mg/dL Creatinine 1.6 H (0.6-1.5) mg/dL Est GFR (CKD-EPI) 42 L (>=60) BUN/Creatinine Ratio 21.19 H (12.00-20.00) Ratio Glucose 117 H (70-110) mg/dL Calcium 10.5 H (8.7-10.3) mg/dL Total Protein 5.7 L (6.2-8.2) g/dL Albumin 3.5 L (3.8-4.9) g/dL Albumin/Globulin Ratio 1.59 L (1.60-3.17) Ratio PTH Intact 11.3 L (14.0-72.0) pg/mL
[2025-03-21] MEDS: HYDROcodone/APAP 10-325MG 1 EACH TAB PO PRN (15:41)
[2025-03-22 09:27] LABS: HCT 34.8 % (39.6-50.0); HGB 11.2 g/dL (13.0-17.0); MCH 28.6 pg (27.0-32.0); MCHC 32.2 g/dL (32.0-37.0); MCV 89.0 FL (80.0-97.0); NRBC Per 100 WBC 0 X 10*3/uL (0.00-0.01); Platelet Count 310 X 10*3/uL (140-440); RBC 3.91 X 10*6/uL (4.40-5.60); RDW 16.9 % (11.5-14.5); WBC 12.18 X 10*3/uL (4.50-10.00)
--- NOTE | 2025-03-22 09:52 | P.PN ---
Subjective Progress Note Date: 03/22/25 Patient is an 83-year-old male with past medical history significant for metastatic renal cell carcinoma with previous left nephrectomy, chronic kidney disease, hypertension, hyperlipidemia, nonobstructive coronary artery disease. He has been following up on an outpatient basis in the pulmonary office for enlarged mediastinal lymphadenopathy, including a 2 cm precarinal lymph node. PET scan done on 10/17/2024 showing scattered metabolically active mediastinal lymph nodes. Did undergo EBUS bronchoscopy on 11/27/2024 and specimen was nondiagnostic for carcinoma or granulomatous inflammation. Subsequently, followed up with cardiothoracic surgery and underwent mediastinoscopy with biopsy of pretracheal lymph node. Pathology positive for nonnecrotizing granulomatous inflammation. Negative for carcinoma. Fungal and acid-fast bacilli cultures were negative. Patient was sent to the emergency department yesterday by his delicatessen goods stock clerk. Reportedly, had abnormal labs including severely elevated calcium on lab draw. Of note, previously had elevated calcium on previous hospitalization in September. On arrival to the ED did receive dose of biphosphonate and is being hydrated with normal saline at 50 cc/h. No calcitonin was given. Labs from admission including a CBC with a WBC count of 7.7, hemoglobin 11.3, platelets 278. CMP with sodium 134, potassium 4.5, chloride 100, serum bicarb 26, BUN 41, creatinine 1.94, glucose 84. Calcium 12.4. Ionized calcium 6.5. Urinalysis unremarkable. EKG: Normal sinus rhythm, rate 75 bpm. QTc 395 ms. Patient currently being evaluated emergency department. On room air. He denies any complaints. No dyspnea, coughing, chest pain, hemoptysis, vision changes. No nausea, vomiting diarrhea. No confusion, lethargy or weakness. Hemodynamics are stable. The patient is seen today March 21, 2025 in follow-up on the regular medical floo r. He is currently resting in bed. Awake and alert in no acute distress. Maintaining good O2 saturations in the 90s on room air oxygen. He denies any worsening shortness of breath, cough or congestion. White count 7.8. Hemoglobin 11.6. Platelets 320. Sodium 140. Potassium 4.1. Bicarb 20. BUN 34. Creatinine 1.6. Glucose 117. Calcium 10.5. He remains on normal saline at 50 mL/h. Heparin for DVT prophylaxis. [place] for pain control. The patient is seen today March 22, 2025 in follow-up on the regular medical floor. He is currently awake and alert in no acute distress. Resting quite comfortably in bed. Denies any worsening shortness of breath, cough or congestion. Maintaining good O2 saturations in the 90s on room air. White count 12.1. Hemoglobin 11.2. Platelets 310. Calcium and magnesium levels pending. He remains on heparin for DVT prophylaxis. Continued on prednisone. Normal saline at 50 mL/h. Objective - Vital Signs Vital signs: Vital Signs Temp 97.4 F L 03/22/25 07:27 Pulse 62 03/22/25 07:27 Resp 16 03/22/25 07:27 BP 124/60 03/22/25 07:27 Pulse Ox 96 03/22/25 07:27 FiO2 Intake & Output 03/21/25 03/22/25 03/22/25 18:59 06:59 18:59 Intake Total 240 Output Total 500 Balance -500 240 Intake: Oral 240 Output: Urine 500 Other: Voiding Method Toilet Urinal - Exam GENERAL EXAM: Alert, oriented 84-year-old male, resting in bed, on room air oxygen, comfortable in no apparent distress. HEAD: Normocephalic and atraumatic EYES: Normal reaction of pupils, equal size. NOSE: Clear with pink turbinates. THROAT: No erythema or exudates. NECK: No masses, no JVD. CHEST: No chest wall deformity. LUNGS: Equal air entry with no crackles, wheeze, rhonchi or dullness. No conversational dyspnea or accessory muscle use. CVS: S1 and S2 normal with no audible murmur, regular rhythm. No extra heart sounds ABDOMEN: No hepatosplenomegaly, active bowel sounds, no guarding or rigidity. SPINE: No scoliosis or deformity SKIN: No rashes CENTRAL NERVOUS SYSTEM: No focal deficits, tone is normal in all 4 extremities. EXTREMITIES: There is no peripheral edema, clubbing, or cyanosis. Peripheral pulses are intact. - Labs CBC & Chem 7: 03/22/25 06:21 03/21/25 06:35 Labs: Abnormal Lab Results - Last 24 Hours (Table) 03/22/25 Range/Units 06:21 WBC 12.18 H (4.50-10.00) X 10*3/uL RBC 3.91 L (4.40-5.60) X 10*6/uL Hgb 11.2 L (13.0-17.0) g/dL Hct 34.8 L (39.6-50.0) % RDW 16.9 H (11.5-14.5) % Assessment and Plan Assessment: Severe hypercalcemia, received dose of IV pamidronate, trending down Acute on chronic kidney disease Mediastinal lymphadenopathy, previously underwent nondiagnostic EBUS bronchoscopy on 11/27/2024. Followed up with cardiothoracic surgery and underwent mediastinoscopy with biopsy of pretracheal lymph node. Pathology positive for nonnecrotizing granulomatous inflammation. Negative for carcinoma. Fungal and acid-fast bacilli cultures were negative. Possible concern for sarcoidosis History of metastatic renal cell carcinoma with previous left nephrectomy Chronic kidney disease stage III Hypertension History of hyperlipidemia History of nonobstructive coronary artery disease History of BPH Plan: The patient was seen and evaluated Labs and medications were reviewed Remained stable and on room air oxygen Nephrology following regarding hypercalcemia Calcium and magnesium levels pending He remains on prednisone Remains on normal saline at 50 mL/h Home once cleared by nephrology This patient was seen independently by the pulmonary nurse practitioner addressing pulmonary issues I have personally seen and examined the patient, performed the documentation and the assessment and plan as written. Number of minutes spent on the visit: 23 Dictation was produced using [employer] dictation software. Please excuse any grammatical, word or spelling errors.
--- NOTE | 2025-03-22 10:04 | P.PN ---
Subjective Patient is seen in follow-up for chronic kidney disease and hypercalcemia. Renal function at baseline. Calcium level trending down. No active complaints. Vital signs are stable. General: No acute distress. HEENT: Head exam is unremarkable. LUNGS: No audible rhonchi or wheezes. HEART: Rate and Rhythm are regular. ABDOMEN: Nontender. EXTREMITITES: No edema. Objective - Vital Signs Vital signs: Vital Signs Temp 97.4 F L 03/22/25 07:27 Pulse 62 03/22/25 07:27 Resp 16 03/22/25 07:27 BP 124/60 03/22/25 07:27 Pulse Ox 96 03/22/25 07:27 FiO2 Intake & Output 03/21/25 03/22/25 03/22/25 18:59 06:59 18:59 Intake Total 240 Output Total 500 Balance -500 240 Intake: Oral 240 Output: Urine 500 Other: Voiding Method Toilet Urinal - Labs CBC & Chem 7: 03/22/25 06:21 03/21/25 06:35 Labs: Abnormal Lab Results - Last 24 Hours (Table) 03/22/25 Range/Units 06:21 WBC 12.18 H (4.50-10.00) X 10*3/uL RBC 3.91 L (4.40-5.60) X 10*6/uL Hgb 11.2 L (13.0-17.0) g/dL Hct 34.8 L (39.6-50.0) % RDW 16.9 H (11.5-14.5) % Assessment and Plan Plan: Assessment: 1. Acute kidney injury secondary to hypercalcemia induced ATN. Renal function stable. Creatinine 1.6 yesterday. UA benign. 2. Chronic kidney disease stage IIIb with baseline creatinine 1.6-1.8 secondary to solitary kidney. 3. Renal cancer. Follows with oncology outpatient. 4. 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 Patient did have an elevated NICO level outpatient. PTH related peptide was negative. Vitamin D level 32 this admission. PTH appropriately suppressed. Improving. Started on prednisone by pulmonology. 5. Hypertension with chronic kidney disease. Controlled. 6. History of BPH. Plan: Hep-Lock IV fluids. Avoid nephrotoxins. Status post pamidronate given March 19, 2025. Oncology and pulmonology following. Follow-up outpatient 1 week postdischarge. Repeat BMP and magnesium level 2 to 3 days postdischarge
[2025-03-22 10:15] LABS: Anion Gap 9.10 mmol/L (4.00-12.00); BUN/Creat Ratio 24.88 Ratio (12.00-20.00); Blood Urea Nitrogen 39.8 mg/dL (9.0-27.0); Carbon Dioxide 20.9 mmol/L (21.6-31.8); Chloride 109 mmol/L (96-109); Glucose 97 mg/dL (70-110); Magnesium 2.1 mg/dL (1.5-2.4); Potassium 4.3 mmol/L (3.5-5.5); Sodium 139 mmol/L (135-145)
[2025-03-22 10:16] VITALS: TEMP 97.4
[2025-03-22 10:16] LABS: Calcium 9.7 mg/dL (8.7-10.3)
[2025-03-22 10:44] LABS: Basophils # (A) 0.02 X 10*3/uL (0.00-0.10); Basophils % (A) 0.2 %; Eosinophils # (A) 0.02 X 10*3/uL (0.04-0.35); Eosinophils % (A) 0.2 %; Immature Grans, Automated 0.80 %; Lymphocytes # (A) 1.59 X 10*3/uL (0.90-5.00); Lymphocytes % (A) 13.1 %; Monocytes # (A) 1.73 X 10*3/uL (0.20-1.00); Monocytes % (A) 14.2 %; Neutrophils # (A) 8.72 X 10*3/uL (1.80-7.70); Neutrophils % (A) 71.5 %
--- NOTE | 2025-03-22 13:17 | P.DS ---
Providers Date of admission: 03/19/25 20:51 Attending physician: Jerman Green MD Consults: 03/19/25 20:47 Consult Physician Routine Consulting Provider: Roger Rae Consult Reason/Comments: ckd, hypercalcemia Do you want consulting provider notified?: Already Contacted Consult Physician Routine Consulting Provider: Queta Patel Consult Reason/Comments: sarcoidosis Do you want consulting provider notified?: Yes Consult Physician Routine Consulting Provider: Amador Mcneal Consult Reason/Comments: renal malignancy Do you want consulting provider notified?: Yes Primary care physician: Derrell Cordova 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 Patient apparently has been here back in September for the same issue which is hypercalcemia. He had extensive investigation to find out the secondary causes of his hypercalcemia. Oncology back then did order labs for multiple myeloma. He was discharged with a calcium level of 9.2. Patient presents today with calcium value of 12.4. His albumin level is 3.5. BUN of 41 and creatinine 1.94 . Patient's conveyor belt repairer referred him to the ER for further workup and management. He recommended bisphosphonate and IV fluid hydration along with oncology and pulmonology consult. Upon arrival to the ED, patient's blood pressure was slightly elevated with a systolic blood pressure of 154. He reports feeling weak but no falls at home . Nephrology will be consulted as well. Patient received IV bisphosphonates, started on fluids. Complaining of left big toe pain, appears to be chronic issue, x-ray showed severe osteoarthritic changes, uric acid WNL,. Calcium level came back to normal, patient was started on prednisone 40 by pulmonology. Nephrology cleared for discharge with 1 week follow-up, repeat BMP and magnesium level. Patient will be provided with prednisone 40 daily and additional Protonix 40 daily, recommended to closely follow-up with nephrology and pulmonology for prednisone dose adjustment based on response. Patient seen and examined at bedside. Vital signs reviewed and stable. General: [nontoxic], [no distress], [appears at stated age] Derm: [warm], [dry] Head: [atraumatic], [normocephalic], [symmetric] Eyes: [EOMI], [no lid lag], [anicteric sclera] Mouth: [no lip lesion], [mucus membranes moist] Cardiovascular: [S1S2 reg], [no murmur] Lungs: [CTA bilateral], [no rhonchi, no rales] , [no accessory muscle use] Abdominal: [soft], [ nontender to palpation], [no guarding], [no appreciable organomegaly] Ext: [no gross muscle atrophy], [no edema], [no contractures], left big toe tender to palpation, no erythema, swelling Neuro: [ CN II-XI grossly intact], [no focal neuro deficits] Psych: [Alert], [oriented], [appropriate affect] A total of 40 minutes of time were spent preparing this complex discharge summary. Patient was discharged on 03/22/2025. Patient Condition at Discharge: Stable Plan - Discharge Summary New Discharge Prescriptions: New Pantoprazole [Protonix] 40 mg PO DAILY #30 tab predniSONE [Deltasone] 40 mg PO DAILY #30 tab Continue Tamsulosin HCl [Flomax] 0.4 mg PO HS Aspirin 81 mg PO HS Rosuvastatin Calcium [Crestor] 40 mg PO HS HYDROcodone/APAP 10-325MG [[place] 10-325] 1 tab PO Q4HR PRN PRN Reason: Pain Lidocaine 4% Cream 1 applic TOPICAL BID PRN PRN Reason: Pain Acetaminophen Tab [Tylenol] 1,000 mg PO TID PRN PRN Reason: Pain Diclofenac Sodium Gel [Voltaren 1% Gel] 1 applic TOPICAL TID PRN PRN Reason: THUMB PAIN Fluticasone Nasal [place] [Flonase Nasal [place]] 1 spray EA NOSTRIL HS PRN PRN Reason: Congestion amLODIPine [Norvasc] 5 mg PO BID Brimonidine Tartrate/Timolol [Brimonidine-Timolol 0.2%-0.5%] 1 drop BOTH EYES BID [place] 1 can PO DAILY Discharge Medication List Tamsulosin HCl [Flomax] 0.4 mg PO HS 10/12/17 [History] amLODIPine [Norvasc] 5 mg PO BID 05/25/23 [History] Aspirin 81 mg PO HS 01/16/24 [History] Rosuvastatin Calcium [Crestor] 40 mg PO HS 09/08/24 [History] HYDROcodone/APAP 10-325MG [[place] 10-325] 1 tab PO Q4HR PRN 10/02/24 [History] Acetaminophen Tab [Tylenol] 1,000 mg PO TID PRN 03/20/25 [History] Brimonidine Tartrate/Timolol [Brimonidine-Timolol 0.2%-0.5%] 1 drop BOTH EYES BID 03/20/25 [History] Diclofenac Sodium Gel [Voltaren 1% Gel] 1 applic TOPICAL TID PRN 03/20/25 [History] Fluticasone Nasal [place] [Flonase Nasal [place]] 1 spray EA NOSTRIL HS PRN 03/20/25 [History] Lidocaine 4% Cream 1 applic TOPICAL BID PRN 03/20/25 [History] [place] 1 can PO DAILY 03/20/25 [History] Pantoprazole [Protonix] 40 mg PO DAILY #30 tab 03/22/25 [Rx] predniSONE [Deltasone] 40 mg PO DAILY #30 tab 03/22/25 [Rx] Follow up Appointment(s)/Referral(s): Queta Patel MD [STAFF PHYSICIAN] - 1 Week [facility] [place] [NON-STAFF] - 1 Week Roger Rae DO [STAFF PHYSICIAN] - 1 Week Derrell Cordova DO [Primary Care Provider] - 1 Week Ambulatory/Diagnostic Orders: Basic Metabolic Panel [LAB.AMB] Time Frame: 2 Days, Location: None Selected Magnesium [LAB.AMB] Location: None Selected Patient Instructions/Handouts: Chronic Kidney Disease (DC) Activity/Diet/Wound Care/Special Instructions: Please, start prednisone 40 mg daily. Make sure you take Protonix with that to protect your stomach. Please, closely follow-up with your primary care physician, conveyor belt repairer, lung doctor to adjust the doses based on your response. Discharge Disposition: HOME SELF-CARE
[2025-03-22 13:24] VITALS: BP 133/72; PULSE 61
--- NOTE | 2025-03-26 08:23 | P.CONS ---
History of Present Illness - Reason for Consult Consult date: 03/20/25 - History of Present Illness Mr. Mckeon is a pleasant male pt of Dr. Mcneal with a history of metastaic renal cell carcinoma status post left nephrectomy diagnosed in early 2015. Other medical history significant for chronic kidney disease, hypertension, hyperlipidemia, nonobstructive coronary artery disease. 11/25/[address] AP without contrast done for abdominal pain. This revealed enlargement of the left kidney with possible mass in the superior pole. There was also a possibility of thrombus in the renal vein. MRI on 01/27/16 showed a heterogenous enhancing mass, 3.2 x 3.8 x 3.2 cm in the upper to mid pole level left kidney. There appeared to be a renal vein thrombus. CT chest on 02/29/16 was negative for evidence of metastasis. He had a left nephrectomy at the [facility] in 04/03. He was placed on surveillance and states that his next scan in showed metastasis to the sternum and the lungs. However he has not been started on treatment yet. He had a follow up scans in 02/01 and was told that there was progression. Records were ultimately obtained from the [facility], confirming metastatic RCC. He was started on Votrient in 04/03 with dose reduction and multiple holds due to SE. He did well until 01/2020, SE were too much and there was an increase in sternal lesion so, he was switched to cabometyx. A few months later he had MT, was not certain if 2/2 to cabometyx but it is a VEGF inhibitor so, treatment was changed to opdivo and has been on since-52 cycles. He was seen 09/27/24 for treatment f/u imaging -stable disease on CT CAP 08/26/25, NM bone scan was done for questionable findings, no evidence of disease progression. Ca++ was 10.5 and Cr was 1.7. Patient seen in 519. We are consulted because of hypercalcemia. Patient was seeing his roll mechanic and outpatient calcium lab was elevated. Calcium level on admission 12.4. Calcium today improved to 11.2. Patient has additional me dical history significant for CAD, GERD, HLD, HTN, osteoarthritis, CKD 3, BPH, chronic low back pain. Currently receiving prednisone for suspected Sarcoidosis. Past Medical History Past Medical History: Coronary Artery Disease (CAD), Cancer, Chest Pain / An raymond, CVA/TIA, GERD/Reflux, Hyperlipidemia, Hypertension, Osteoarthritis (OA), Prostate Disorder, Renal Disease Additional Past Medical History / Comment(s): L renal cancer with nephrectomy/mets L lung and sternum/no longer taking oral chemo d/t it was affecting his kidney/states he receives infusion once a month but does not know what type of infusion last dose was 01/06/25, chronic renal failure stage IV- monitored by roll mechanic, BPH, newsome's esophagus, gastritis, dry mouth, chronic low back pain. States he had a mild stroke in 2020 had R arm and leg weakness. Arthritis in knees, hips and thumbs. Pre-diabetic. Last Myocardial Infarction Date:: 2019 History of Any Multi-Drug Resistant Organisms: None Reported Past Surgical History: Heart Catheterization, Orthopedic Surgery Additional Past Surgical History / Comment(s): L nephrectomy 2015, R HAND 2ND DIGIT LOST TOP OF FINGER IN CRUSHING INJURY, EGDs, colonoscopy, bilateral cataract removals/lens implants. Past Anesthesia/Blood Transfusion Reactions: No Reported Reaction Additional Past Anesthesia/Blood Transfusion Reaction / Comm: No hx of blood transfusion Past Psychological History: Depression Smoking Status: Former smoker - Past Family History Father Family Medical History: Cancer, Hypertension, Myocardial Infarction (MT) Additional Family Medical History / Comment(s): SKIN CANCER Mother Family Medical History: Cancer Additional Family Medical History / Comment(s): breast cancer - throat cancer Sister(s) Family Medical History: Cancer Additional Family Medical History / Comment(s): skin/breast and throat cancer Medications and Allergies Home Medications Medication Instructions Recorded Confirmed Type Tamsulosin HCl [Flomax] 0.4 mg PO HS 10/12/17 03/20/25 History amLODIPine [Norvasc] 5 mg PO BID 05/25/23 03/20/25 History Aspirin 81 mg PO HS 01/16/24 03/20/25 History Rosuvastatin Calcium [Crestor] 40 mg PO HS 09/08/24 03/20/25 History HYDROcodone/APAP 10-325MG [[place] 1 tab PO Q4HR PRN 10/02/24 03/20/25 History 10-325] Acetaminophen Tab [Tylenol Tab] 1,000 mg PO TID PRN 03/20/25 03/20/25 History Brimonidine Tartrate/Timolol 1 drop BOTH EYES BID 03/20/25 03/20/25 History [Brimonidine-Timolol 0.2%-0.5%] Diclofenac Sodium Gel [Voltaren 1% 1 applic TOPICAL TID PRN 03/20/25 03/20/25 History Gel] Fluticasone Nasal [place] [Flonase 1 spray EA NOSTRIL HS PRN 03/20/25 03/20/25 History Nasal [place]] Lidocaine 4% Cream 1 applic TOPICAL BID PRN 03/20/25 03/20/25 History Suplena 1 can PO DAILY 03/20/25 03/20/25 History Allergies Allergy/AdvReac Type Severity Reaction Status Date / Time atorvastatin calcium AdvReac JOINT PAIN Verified 03/20/25 07:02 [From Lipitor] clindamycin AdvReac JOINT PAIN Verified 03/20/25 07:02 Physical Exam Vitals: Vital Signs Temp Pulse Pulse Resp BP BP Pulse Ox 03/20/25 08:01 98.5 F 72 13 167/84 98 03/20/25 06:26 97.4 F L 64 17 141/85 96 03/20/25 05:00 62 18 114/58 95 03/20/25 02:00 78 18 140/87 96 03/20/25 00:00 71 14 122/64 96 03/19/25 21:59 73 18 138/82 96 03/19/25 18:37 97.5 F L 75 16 154/73 96 Intake and Output 03/19/25 03/20/25 03/20/25 22:59 06:59 14:59 Intake Total 120 Balance 120 Intake: Oral 120 Other: Weight 55.792 kg Vital signs are stable. General: No acute distress. LUNGS: CTA bilaterally. HEART: Rate and Rhythm are regular. ABDOMEN: Non-tender no palpation. EXTREMITITES: No edema. Tender big left toe. Results CBC & Chem 7: 03/20/25 08:11 03/20/25 08:11 Labs: Abnormal Lab Results - Last 24 Hours (Table) 03/19/25 03/19/25 03/19/25 Range/Units 19:31 19:31 22:34 RBC 3.85 L (4.40-5.60) 10*6/uL Hgb 11.3 L (13.0-17.0) g/dL Hct 33.6 L (39.6-50.0) % Monocytes # 1.27 H (0.20-1.00) 10*3/uL Eosinophils # 1.47 H (0.04-0.35) 10*3/uL Sodium 134 L (137-145) mmol/L BUN 41 H (9-20) mg/dL Creatinine 1.94 H (0.66-1.25) mg/dL Glucose (74-99) mg/dL Calcium 12.4 H (8.4-10.2) mg/dL Ionized Calcium Mellisa 6.5 H* (4.5-5.3) mg/dL Total Protein 6.0 L (6.3-8.2) g/dL 03/20/25 03/20/25 Range/Units 08:11 08:11 RBC 4.06 L (4.40-5.60) 10*6/uL Hgb 11.9 L (13.0-17.0) g/dL Hct 35.5 L (39.6-50.0) % Monocytes # (0.20-1.00) 10*3/uL Eosinophils # 1.43 H (0.04-0.35) 10*3/uL Sodium (137-145) mmol/L BUN 32 H (9-20) mg/dL Creatinine 1.59 H (0.66-1.25) mg/dL Glucose 104 H (74-99) mg/dL Calcium 11.2 H (8.4-10.2) mg/dL Ionized Calcium Mellisa (4.5-5.3) mg/dL Total Protein 6.1 L (6.3-8.2) g/dL Assessment and Plan Assessment: #. Hypercalcemia #. Sarcoidosis - likely d/t sarcoidosis vs hormonal aberration 2/2 immunotherapy. - No gross findings on recent nuclear medicine bone scan or CT CAP to suggest progressive metastases from RCC. - 1 dose of aredia 60 mg ordered for hypercalcemia. Maintaining on NS at 50 cc/hr. - currently receiving prednisone 40 mg PO daily by pulmonology - nephrology and pulmonology following #. Metastatic renal cell carcinoma -Diagnosis and treatment as documented in HPI -patient has been tolerating immunotherapy for a number of years Thank you for this consultation. We will continue to follow this patient for the remainder of his admission. Please do not hesitate to ask any further questions.
== END 2025-03-22 13:40 | disposition home or self-care (01) ==
LOC: EC 18:34 → UNDOADMIN 20:51 → 5NMEDONC 20:51 → INTOOBSV 20:52 → 5NMEDONC 03-20 06:44 → UNDODISIN 03-22 13:40
PROVIDERS: ADMIT Student in an Organized Health Care Education/Training Program; ATTEND Student in an Organized Health Care Education/Training Program
DX: E83.52 Hypercalcemia (principal); N17.0 Acute kidney failure with tubular necrosis; C78.02 Secondary malignant neoplasm of left lung; D86.9 Sarcoidosis, unspecified; R59.0 Localized enlarged lymph nodes; M19.042 Primary osteoarthritis, left hand; I12.9 Hypertensive chronic kidney disease with stage 1 through stage 4 chronic kidney disease, or unspecified chronic kidney disease; N18.32 Chronic kidney disease, stage 3b; E78.5 Hyperlipidemia, unspecified; G89.29 Other chronic pain; M54.50 Low back pain, unspecified; N40.0 Benign prostatic hyperplasia without lower urinary tract symptoms; I25.10 Atherosclerotic heart disease of native coronary artery without angina pectoris; I25.2 Old myocardial infarction; I69.351 Hemiplegia and hemiparesis following cerebral infarction affecting right dominant side; M19.90 Unspecified osteoarthritis, unspecified site; Z90.5 Acquired absence of kidney; Z85.528 Personal history of other malignant neoplasm of kidney; Z87.891 Personal history of nicotine dependence; Z79.899 Other long term (current) drug therapy; Z79.82 Long term (current) use of aspirin; Z88.8 Allergy status to other drugs, medicaments and biological substances; Z88.1 Allergy status to other antibiotic agents
CPT/HCPCS: 96372 ×4; 99285; 36415; 93005; 97161; 82652; 80053 ×3; 80048; 82330; 83735 ×4; 84550; 85025 ×4; 81003; 82306; 83970; 73630; 71045; G0378 ×4; J1644 ×3; J7512 ×3; J2430

== ENCOUNTER → 2025-03-24 | Outpatient (CLI) | payer OTHER, MEDICARE ==
[2025-03-24 19:50] LABS: Anion Gap 10.70 mmol/L (4.00-12.00); BUN/Creat Ratio 18.75 Ratio (12.00-20.00); Blood Urea Nitrogen 30.0 mg/dL (9.0-27.0); Calcium 9.5 mg/dL (8.7-10.3); Carbon Dioxide 21.3 mmol/L (21.6-31.8); Chloride 104 mmol/L (96-109); Glucose 149 mg/dL (70-110); Potassium 4.5 mmol/L (3.5-5.5); Sodium 136 mmol/L (135-145)
== END | disposition home or self-care (01) ==
LOC: LABWHC1 14:58
PROVIDERS: ATTEND Student in an Organized Health Care Education/Training Program
DX: E83.52 Hypercalcemia (principal)
CPT/HCPCS: 36415; 80048

== ENCOUNTER 2025-03-29 20:40 | Observation (INO) | payer MEDICARE, OTHER ==
[2025-03-29 21:18] LABS: Basophils # (A) 0.02 10*3/uL (0.00-0.10); Basophils % (A) 0.2 %; Eosinophils # (A) 0.01 10*3/uL (0.04-0.35); Eosinophils % (A) 0.1 %; HCT 33.7 % (39.6-50.0); HGB 11.7 g/dL (13.0-17.0); Lymphocytes # (A) 1.56 10*3/uL (0.90-5.00); Lymphocytes % (A) 14.6 %; MCH 30.0 pg (27.0-32.0); MCHC 34.7 g/dL (32.0-37.0); MCV 86.4 fL (80.0-97.0); Monocytes # (A) 1.31 10*3/uL (0.20-1.00); Monocytes % (A) 12.2 %; Neutrophils # (A) 7.69 10*3/uL (1.80-7.70); Neutrophils % (A) 71.7 %; Platelet Count 432 10*3/uL (140-440); RBC 3.90 10*6/uL (4.40-5.60); RDW 17.7 % (11.5-14.5); WBC 10.72 10*3/uL (4.50-10.00)
--- NOTE | 2025-03-29 21:21 | XR ---
EXAMINATION TYPE: XR chest 2V DATE OF EXAM: 03/29/2025 9:18 PM COMPARISON: Chest radiographs from 03/20/2025 TECHNIQUE: XR chest 2V Frontal and lateral views of the chest. CLINICAL INDICATION:Male, 84 years old with history of Chest Pain; FINDINGS: Lungs/Pleura: There is no evidence of pleural effusion, focal consolidation, or pneumothorax. Pulmonary vascularity: Unremarkable. Heart/mediastinum: Cardiomediastinal silhouette is unremarkable. Musculoskeletal: No acute osseous pathology. IMPRESSION: No acute cardiopulmonary disease/process. [facility], , 03/29/2025 9:19 PM
[2025-03-29 21:27] LABS: INR 1.0 (<1.2); Partial Thromboplastin Time 22.2 sec (22.0-30.0); Prothrombin Time 11.0 sec (10.0-12.5)
[2025-03-29 21:29] LABS: ALT 18 U/L (4-49); AST 23 U/L (17-59); African American GFR (CKD) 49 (>60 ml/min/1.73 sqM); Albumin 4.1 g/dL (3.5-5.0); Alkaline Phosphatase 69 U/L (38-126); Anion Gap 11 mmol/L; Blood Urea Nitrogen 32 mg/dL (9-20); Calcium 8.9 mg/dL (8.4-10.2); Carbon Dioxide 19 mmol/L (22-30); Chloride 109 mmol/L (98-107); Glucose 98 mg/dL (74-99); Magnesium 2.1 mg/dL (1.6-2.3); Non-African American GFR(CKD) 42 (>60 ml/min/1.73 sqM); Potassium 4.3 mmol/L (3.5-5.1); Sodium 139 mmol/L (137-145); Total Protein 6.8 g/dL (6.3-8.2)
--- NOTE | 2025-03-29 22:19 | ED ---
General Adult HPI - General Source: patient, EMS Mode of arrival: EMS <Erin Rothman - Last Filed: 03/30/25 17:09> - General Source: patient, EMS, RN notes reviewed, old records reviewed Mode of arrival: EMS Limitations: no limitations <Felice Salas - Last Filed: 03/31/25 02:34> - General Chief complaint: Chest Pain Stated complaint: chest pain Time Seen by Provider: 03/29/25 20:53 - History of Present Illness Initial comments: Patient is a pleasant 84-year-old gentleman presenting today for chest pain.History CAD, prior CVA, hyperlipidemia hypertension. Patient states that he was outside doing many activities today and when he came inside to rest he began having pressure-like substernal chest pain. He took 324 mg baby aspirin and called 911. By the time he arrived in the ED his chest pain had resolved. Denies associated shortness of breath, diaphoresis, dizziness. Chest pain was nonradiating. He is not on blood thinners. Denies cough or hemoptysis. Denies fevers or chills, [place] pain, nausea, vomiting, melena or hematochezia. Denies changes in vision, numbness or weakness. Family history the father of SC at the age of 70. Patient is a non-smoker. States he was recently admitted to the hospital for hypercalemia. (Erin Rothman) This is an 84-year-old male to ER today complaining of chest pain history of CAD (Felice Salas) - Related Data Home Medications Medication Instructions Recorded Confirmed Tamsulosin HCl [Flomax] 0.4 mg PO HS 10/12/17 03/30/25 amLODIPine [Norvasc] 5 mg PO BID 05/25/23 03/30/25 Aspirin 81 mg PO HS 01/16/24 03/30/25 Rosuvastatin Calcium [Crestor] 40 mg PO HS 09/08/24 03/30/25 HYDROcodone/APAP 10-325MG [[place] 1 tab PO Q4HR PRN 10/02/24 03/30/25 10-325] Acetaminophen Tab [Tylenol] 1,000 mg PO TID PRN 03/20/25 03/30/25 Brimonidine Tartrate/Timolol 1 drop BOTH EYES BID 03/20/25 03/30/25 [Brimonidine-Timolol 0.2%-0.5%] Diclofenac Sodium Gel [Voltaren 1% 1 applic TOPICAL TID PRN 03/20/25 03/30/25 Gel] Fluticasone Nasal [place] [Flonase 1 spray EA NOSTRIL HS PRN 03/20/25 03/30/25 Nasal [place]] Lidocaine 4% Cream 1 applic TOPICAL BID PRN 03/20/25 03/30/25 Su[place]ena 1 can PO DAILY 03/20/25 03/30/25 Previous Rx's Medication Instructions Recorded Pantoprazole [Protonix] 40 mg PO DAILY #30 tab 03/22/25 predniSONE [Deltasone] 40 mg PO DAILY #30 tab 03/22/25 Allergies Allergy/AdvReac Type Severity Reaction Status Date / Time atorvastatin calcium AdvReac JOINT PAIN Verified 03/29/25 20:47 [From Lipitor] clindamycin AdvReac JOINT PAIN Verified 03/29/25 20:47 Review of Systems ROS Other: All systems not noted in ROS Statement are negative. <Erin Rothman - Last Filed: 03/30/25 17:09> ROS Other: All systems not noted in ROS Statement are negative. <Felice Salas - Last Filed: 03/31/25 02:34> ROS Statement: Those systems with pertinent positive or pertinent negative responses have been documented in the HPI. Past Medical History Past Medical History: Coronary Artery Disease (CAD), Cancer, Chest Pain / Angina, CVA/TIA, GERD/Reflux, Hyperlipidemia, Hypertension, Osteoarthritis (OA), Prostate Disorder, Renal Disease Additional Past Medical History / Comment(s): L renal cancer with nephrectomy/mets L lung and sternum/no longer taking oral chemo d/t it was affecting his kidney/states he receives infusion once a month but does not know what type of infusion last dose was 01/06/25, chronic renal failure stage IV- monitored by big machine consultant, BPH, newsome's esophagus, gastritis, dry mouth, chronic low back pain. States he had a mild stroke in 2019 had R arm and leg weakness. Arthritis in knees, hips and thumbs. Pre-diabetic. Last Myocardial Infarction Date:: 2019 History of Any Multi-Drug Resistant Organisms: None Reported Past Surgical History: Heart Catheterization, Orthopedic Surgery Additional Past Surgical History / Comment(s): L nephrectomy 2016, R HAND 2ND DIGIT LOST TOP OF FINGER IN CRUSHING INJURY, EGDs, colonoscopy, bilateral cataract removals/lens implants. Past Anesthesia/Blood Transfusion Reactions: No Reported Reaction Additional Past Anesthesia/Blood Transfusion Reaction / Comment(s): No hx of blood transfusion Past Psychological History: Depression Smoking Status: Former smoker Past Alcohol Use History: Occasional Past Drug Use History: None Reported - Past Family History Father Family Medical History: Cancer, Hypertension, Myocardial Infarction ([place]) Additional Family Medical History / Comment(s): SKIN CANCER Mother Family Medical History: Cancer Additional Family Medical History / Comment(s): breast cancer - throat cancer Sister(s) Family Medical History: Cancer Additional Family Medical History / Comment(s): skin/breast and throat cancer <EnglishErin - Last Filed: 03/30/25 17:09> General Exam <EnglishErin - Last Filed: 03/30/25 17:09> General appearance: alert, in no apparent distress Head exam: Present: atraumatic, normocephalic, normal inspection Eye exam: Present: normal appearance, PERRL, EOMI. Absent: scleral icterus, conjunctival injection, periorbital swelling ENT exam: Present: normal exam, mucous membranes moist Neck exam: Present: normal inspection. Absent: tenderness, meningismus, lymphadenopathy Respiratory exam: Present: normal lung sounds bilaterally. Absent: respiratory distress, wheezes, rales, rhonchi, stridor Cardiovascular Exam: Present: regular rate, normal rhythm, normal heart sounds. Absent: systolic murmur, diastolic murmur, rubs, gallop, clicks GI/Abdominal exam: Present: soft, normal bowel sounds. Absent: distended, tenderness, guarding, rebound, rigid Extremities exam: Present: normal inspection, full ROM, normal capillary refill. Absent: tenderness, pedal edema, joint swelling, calf tenderness Back exam: Present: normal inspection Neurological exam: Present: alert, oriented X3, CN II-XII intact Psychiatric exam: Present: normal affect, normal mood Skin exam: Present: warm, dry, intact, normal color. Absent: rash <Felice Salas - Last Filed: 03/31/25 02:34> - General Exam Comments Initial Comments: PE: CONSTITUTIONAL: No apparent distress, well appearing SKIN: Warm, dry, no jaundice, hives or petechiae EYES: Pupils are equally round, extraocular movements intact without nystagmus, clear conjunctiva, non-icteric sclera HENT: Normocephalic, atraumatic, moist mucus membranes, oropharynx clear without exudates NECK: , Full range of motion, normal appearance PULMONARY: Clear to auscultation without wheezes, rhonchi, or rales, normal excursion, no accessory muscle use and no stridor CARDIOVASCULAR: Regular rate, rhythm, normal S1 and S2. No appreciated murmurs, rubs or gallops. Strong radial pulses with intact distal perfusion. No lower extremity edema GASTROINTESTINAL: Soft, active bowel sounds throughout, non-tender, non- distended, no palpable masses, no rebound or guarding. No hepatosplenomegaly GENITOURINARY: MUSCULOSKELETAL: Extremities have no gross deformity, no edema, redness, or swelling. NEUROLOGIC:_a/o x 3, GCS 15, normal mentation and speech. Moves all extremities x 4 without motor or sensory deficit PSYCHIATRIC:_normal mood and affect, thought process is clear and linear (Erin Rothman) Course <Felice Salas - Last Filed: 03/31/25 02:34> Vital Signs 03/29/25 03/29/25 03/29/25 20:42 21:54 23:20 Temperature 98.3 F Pulse Rate 80 71 79 Respiratory 18 18 19 Rate Blood Pressure 161/82 136/73 146/84 O2 Sat by Pulse 98 98 98 Oximetry 03/30/25 03/30/25 03/30/25 02:05 04:15 06:42 Temperature Pulse Rate 68 65 67 Respiratory 18 16 16 Rate Blood Pressure 136/72 120/56 115/58 O2 Sat by Pulse 97 97 97 Oximetry 03/30/25 03/30/25 03/30/25 08:35 12:00 12:46 Temperature 98.3 F 97.3 F L Pulse Rate 77 62 72 Respiratory 16 24 18 Rate Blood Pressure 123/59 148/98 120/80 O2 Sat by Pulse 98 99 Oximetry - Reevaluation(s) Reevaluation #1: 03/30/25 00:22 Medical records reviewed (Felice Salas) Reevaluation #2: 03/30/25 00:22 Patient's chest pain persists (Felice Salas) Reevaluation #3: 03/30/25 00:22 Patient informed of results questions answered (Felice Salas) EKG Findings - EKG Comments: EKG Findings:: Sinus rhythm, rate 80 bpm intervals acceptable limits, no significant ST elevations or depressions no arrhythmia <Erin Rothman - Last Filed: 03/30/25 17:09> Medical Decision Making - Lab Data Result diagrams: 03/29/25 20:58 03/29/25 20:58 <Erin Rothman - Last Filed: 03/30/25 17:09> - Lab Data Result diagrams: 03/29/25 20:58 03/29/25 20:58 - EKG Data -: EKG Interpreted by Me - Radiology Data Radiology results: report reviewed (Chest x-ray is negative for acute disease), image reviewed <Felice Salas - Last Filed: 03/31/25 02:34> - Medical Decision Making Was pt. sent in by a medical professional or institution (, PA, SOFTWARE ENGINEERING MANAGER, urgent care, hospital, or [facility]...) When possible be specific @ -No Did you speak to anyone other than the patient for history (EMS, parent, family, police, friend...)? What history was obtained from this source @ -No Did you review nursing and triage notes (agree or disagree)? Why? @ -I reviewed nursing and triage notes-I agree with triage note, states patient presents today for substernal chest pain after overexerting himself today Were old charts reviewed (outside hosp., previous admission, EMS record, old EKG, old radiological studies, urgent care reports/EKG's, [facility] records)? Report findings @ -Medical records reviewed-Reviewed discharge summary from visit from 03/22/2025, patient was admitted for hypercalcemia. Additionally reviewed chest x-ray from 03/20/2025, showed "similar interstitial changes within the mid and upper lungs, could be atypical pneumonia interstitial pneumonitis, hypersensitivity pneumonitis versus other etiologies", stable prominent mediastinal silhouette related to known mediastinal and hilar adenopathy Differential Diagnosis (chest pain, altered mental status, abdominal pain women, abdominal pain men, vaginal bleeding, weakness, fever, dyspnea, syncope, headache, dizziness, GI bleed, back pain, seizure, CVA, palpatations, mental health, musculoskeletal)? Differential Chest Pain: Stable Angina, Unstable Angina, STEMI, NSTEMI Aortic Dissection, pericarditis, pleurisy, chostochondirits, Pneumothorax, Musculoskeletal, Esophageal Spasm GERD, Cholecystitis, Pancreatitis, Zoster, this is not meant to be an all- inclusive list. EKG interpreted by me (3pts min.). @ -As above X-rays interpreted by me (1pt min.). Personally reviewed chest x-ray see no evidence of cardiomegaly, consolidations or pneumothorax agrees radiologist interpretation CT interpreted by me (1pt min.). @ -None done U/S interpreted by me (1pt. min.). @ -None done What testing was considered but not performed or refused? (CT, X-rays, U/S, labs)? Why? @ -None What meds were considered but not given or refused? Why? @ -None Did you discuss the management of the patient with other professionals (professionals i.e. , PA, SOFTWARE ENGINEERING MANAGER, lab, RT, psych nurse, social media intern, sound cutter, teacher, escrow officer, manager of case management)? Give summary @ -No Was smoking cessation discussed for >3mins.? @ -No Was critical care preformed (if so, how long)? @ -No Were there social determinants of health that impacted care today? How? (Homelessness, low income, unemployed, alcoholism, drug addiction, transportation, low edu. Level, literacy, decrease access to med. care, long term, rehab)? @ -No Was there de-escalation of care discussed even if they declined (Discuss DNR or withdrawal of care, Hospice)? @ -No What co-morbidities impacted this encounter? (DM, HTN, Smoking, COPD, CAD, Cancer, CVA, ARF, Chemo, Hep., AIDS, mental health diagnosis, sleep apnea, morbid obesity)? @ -Hypertension, CAD, hyperlipidemia Was patient admitted / discharged? Hospital course, mention meds given and route, prescriptions, significant lab abnormalities, going to OR and other pertinent info. @Pending admission, was signed out to oncoming physician Dr. Salas- This is a pleasant 84-year gentleman, past medical history as above presenting today for substernal chest pain after a day of overexerting himself. Blood pressure 162/81 arrival, otherwise vital signs acceptable limits. On my assessment he is well-appearing in no acute distress. He is chest pain free. EKG does not show signs of SC. Discussed with patient plan for chest x-ray, labs and anticipated admission due to cardiac risk factors and history. Patient agreeable plan of care. Labs and imaging reviewed. Grossly within normal limits. Abnormal values not concerning for acute pathology related to presenting complaint. Creatinine and GFR appear stable. Troponin is nonelevated. Due to patient's significant cardiac history will admit for observation. Sound physician paged, patient signed out to Dr. Salas pending acceptance of admission. . Undiagnosed new problem with uncertain prognosis? @ -No Drug Therapy requiring intensive monitoring for toxicity (Heparin, Nitro, Insulin, Cardizem)? @ -No Were any procedures done? @ -No Diagnosis/symptom? @ Chest pain Acute, or Chronic, or Acute on Chronic? acute Uncomplicated (without systemic symptoms) or Complicated (systemic symptoms)? @ -complicated Side effects of treatment? @ -No Exacerbation, Progression, or Severe Exacerbation? @ -No Poses a threat to life or bodily function? How? (Chest pain, [place], SC, pneumonia, PE, COPD, DKA, ARF, appy, cholecystitis, CVA, Diverticulitis, Homicidal, Suicidal, threat to staff... and all critical care pts) @ -yes (Erin Rothman) 84 male will be admitted for chest pain observation (Felice Salas) - Lab Data Lab Results 03/29/25 03/29/25 03/29/25 Range/Units 20:58 20:58 20:58 WBC 10.72 H (4.50-10.00) 10*3/uL RBC 3.90 L (4.40-5.60) 10*6/uL Hgb 11.7 L (13.0-17.0) g/dL Hct 33.7 L (39.6-50.0) % MCV 86.4 (80.0-97.0) fL MCH 30.0 (27.0-32.0) pg MCHC 34.7 (32.0-37.0) g/dL Plt Count 432 (140-440) 10*3/uL MPV 11.0 (9.5-12.2) fL Immature Gran % (Auto) 1.2 % Neutrophils % 71.7 % Lymphocytes % 14.6 % Monocytes % 12.2 % Eosinophils % 0.1 % Basophils % 0.2 % Immature Gran # 0.13 H (0.00-0.04) 10*3/uL Neutrophils # 7.69 (1.80-7.70) 10*3/uL Lymphocytes # 1.56 (0.90-5.00) 10*3/uL Monocytes # 1.31 H (0.20-1.00) 10*3/uL Eosinophils # 0.01 L (0.04-0.35) 10*3/uL Basophils # 0.02 (0.00-0.10) 10*3/uL PT 11.0 (10.0-12.5) sec INR 1.0 (<1.2) APTT 22.2 (22.0-30.0) sec Sodium 139 (137-145) mmol/L Potassium 4.3 (3.5-5.1) mmol/L Chloride 109 H (98-107) mmol/L Carbon Dioxide 19 L (22-30) mmol/L Anion Gap 11 mmol/L BUN 32 H (9-20) mg/dL Creatinine 1.52 H (0.66-1.25) mg/dL Est GFR (CKD-EPI)AfAm 49 (>60 ml/min/1.73 sqM) Est GFR (CKD-EPI)NonAf 42 (>60 ml/min/1.73 sqM) Glucose 98 (74-99) mg/dL Calcium 8.9 (8.4-10.2) mg/dL Magnesium 2.1 (1.6-2.3) mg/dL Total Bilirubin 0.5 (0.2-1.3) mg/dL AST 23 (17-59) U/L ALT 18 (4-49) U/L Alkaline Phosphatase 69 (38-126) U/L Troponin I (0.000-0.034) ng/mL Total Protein 6.8 (6.3-8.2) g/dL Albumin 4.1 (3.5-5.0) g/dL 03/29/25 Range/Units 20:58 WBC (4.50-10.00) 10*3/uL RBC (4.40-5.60) 10*6/uL Hgb (13.0-17.0) g/dL Hct (39.6-50.0) % MCV (80.0-97.0) fL MCH (27.0-32.0) pg MCHC (32.0-37.0) g/dL Plt Count (140-440) 10*3/uL MPV (9.5-12.2) fL Immature Gran % (Auto) % Neutrophils % % Lymphocytes % % Monocytes % % Eosinophils % % Basophils % % Immature Gran # (0.00-0.04) 10*3/uL Neutrophils # (1.80-7.70) 10*3/uL Lymphocytes # (0.90-5.00) 10*3/uL Monocytes # (0.20-1.00) 10*3/uL Eosinophils # (0.04-0.35) 10*3/uL Basophils # (0.00-0.10) 10*3/uL PT (10.0-12.5) sec INR (<1.2) APTT (22.0-30.0) sec Sodium (137-145) mmol/L Potassium (3.5-5.1) mmol/L Chloride (98-107) mmol/L Carbon Dioxide (22-30) mmol/L Anion Gap mmol/L BUN (9-20) mg/dL Creatinine (0.66-1.25) mg/dL Est GFR (CKD-EPI)AfAm (>60 ml/min/1.73 sqM) Est GFR (CKD-EPI)NonAf (>60 ml/min/1.73 sqM) Glucose (74-99) mg/dL Calcium (8.4-10.2) mg/dL Magnesium (1.6-2.3) mg/dL Total Bilirubin (0.2-1.3) mg/dL AST (17-59) U/L ALT (4-49) U/L Alkaline Phosphatase (38-126) U/L Troponin I <0.012 (0.000-0.034) ng/mL Total Protein (6.3-8.2) g/dL Albumin (3.5-5.0) g/dL Disposition <Erin Rothman - Last Filed: 03/30/25 17:09> Is patient prescribed a controlled substance at d/c from ED?: No Time of Disposition: 00:30 <Felice Salas - Last Filed: 03/31/25 02:34> Clinical Impression: Chest pain, CKD (chronic kidney disease), BEVERLY (acute kidney injury), Metastatic renal cell carcinoma Disposition: ADMITTED IP TO THIS HOSP Condition: Fair
[2025-03-30] MEDS ORDERED: NALOXONE 0.4 MG/ML 1 ML VIAL IV PRN (00:20)
[2025-03-30] MEDS ORDERED: MORPHINE SULFATE 4 MG/ML SYRINGE IV PRN (00:20)
[2025-03-30] MEDS ORDERED: ONDANSETRON 4 MG/2 ML VIAL IVP PRN (00:20)
[2025-03-30] MEDS ORDERED: SODIUM CHLORIDE 0.9% 1,000 ML IV SCH (00:30)
--- NOTE | 2025-03-30 06:56 | P.HPIM ---
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 Yesterday morning patient felt good and engaged in excessive household activities including working in garage, shopping, vacuuming, and mopping the kitchen - activities he typically does not perform. Mid-afternoon while resting in a chair, patient developed frontal chest pain. Pain was localized to front of chest with no radiation to shoulders, jaw, or other areas. Patient denied associated nausea, vomiting, sweating, dizziness, lightheadedness, coughing, or breathing difficulties. Pain was described as annoying but not severe enough to stop activities. Patient would not have sought medical attention on his own but came in at urging of others. 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 Patient reports no heavy lifting required at work. Former smoker who quit smoking. Denies drug use and heavy alcohol consumption. Patient describes himself as unable to sit still and prefers to keep working rather than relaxing. Sister and brother both had cancer. Father due to uncontrolled blood pressure. PMHx History of TIA/Stroke approximately 1.5 to 2 years ago no residual weakness Hypertension - currently on medication Hyperlipidemia - currently on medication Review of systems All systems reviewed with pertinent positive negatives as per HPI Cardiovascular: Chest pain as described in HPI, denies associated symptoms Pulmonary: Denies coughing or breathing issues Gastrointestinal: Denies nausea or vomiting Neurological: Denies dizziness or lightheadedness Constitutional: Denies sweating on exam General: Patient in no acute distress, very pleasant and cooperative, alert and oriented times 4 Eyes: Anicteric sclerae, moist conjunctiva, Pupils equal round reactive to light Cardiovascular: Heart regular S1, S2, regular rate and rhythm, no murmurs, no peripheral edema Pulmonary: Lungs clear to auscultation bilaterally, no wheezing or rales Abdomen: Soft, lax, no tenderness, no palpable organomegaly, bowel sounds positive Extremities: No calf muscle tenderness Neurological: Strength 5/5 upper and lower extremities bilaterally, sensation to light touch grossly intact Past Medical History Past Medical History: Coronary Artery Disease (CAD), Cancer, Chest Pain / Angina, CVA/TIA, GERD/Reflux, Hyperlipidemia, Hypertension, Osteoarthritis (OA), Prostate Disorder, Renal Disease Additional Past Medical History / Comment(s): L renal cancer with nephrectomy/mets L lung and sternum/no longer taking oral chemo d/t it was affecting his kidney/states he receives infusion once a month but does not know what type of infusion last dose was 01/06/25, chronic renal failure stage IV- monitored by freelance director, BPH, newsome's esophagus, gastritis, dry mouth, chronic low back pain. States he had a mild stroke in 2019 had R arm and leg weakness. Arthritis in knees, hips and thumbs. Pre-diabetic. Last Myocardial Infarction Date:: 2019 History of Any Multi-Drug Resistant Organisms: None Reported Past Surgical History: Heart Catheterization, Orthopedic Surgery Additional Past Surgical History / Comment(s): L nephrectomy 2015, R HAND 2ND DIGIT LOST TOP OF FINGER IN CRUSHING INJURY, EGDs, colonoscopy, bilateral cataract removals/lens implants. Past Anesthesia/Blood Transfusion Reactions: No Reported Reaction Additional Past Anesthesia/Blood Transfusion Reaction / Comment(s): No hx of blood transfusion Past Psychological History: Depression Smoking Status: Former smoker Past Alcohol Use History: Occasional Past Drug Use History: None Reported - Past Family History Father Family Medical History: Cancer, Hypertension, Myocardial Infarction ([place]) Additional Family Medical History / Comment(s): SKIN CANCER Mother Family Medical History: Cancer Additional Family Medical History / Comment(s): breast cancer - throat cancer Sister(s) Family Medical History: Cancer Additional Family Medical History / Comment(s): skin/breast and throat cancer Medications and Allergies Home Medications Medication Instructions Recorded Confirmed Type Tamsulosin HCl [Flomax] 0.4 mg PO HS 10/12/17 03/20/25 History amLODIPine [Norvasc] 5 mg PO BID 05/25/23 03/20/25 History Aspirin 81 mg PO HS 01/16/24 03/20/25 History Rosuvastatin Calcium [Crestor] 40 mg PO HS 09/08/24 03/20/25 History HYDROcodone/APAP 10-325MG [[place] 1 tab PO Q4HR PRN 10/02/24 03/20/25 History 10-325] Acetaminophen Tab [Tylenol] 1,000 mg PO TID PRN 03/20/25 03/20/25 History Brimonidine Tartrate/Timolol 1 drop BOTH EYES BID 03/20/25 03/20/25 History [Brimonidine-Timolol 0.2%-0.5%] Diclofenac Sodium Gel [Voltaren 1% 1 applic TOPICAL TID PRN 03/20/25 03/20/25 History Gel] Fluticasone Nasal [place] [Flonase 1 spray EA NOSTRIL HS PRN 03/20/25 03/20/25 History Nasal [place]] Lidocaine 4% Cream 1 applic TOPICAL BID PRN 03/20/25 03/20/25 History [place] 1 can PO DAILY 03/20/25 03/20/25 History Pantoprazole [Protonix] 40 mg PO DAILY #30 tab 03/22/25 Rx predniSONE [Deltasone] 40 mg PO DAILY #30 tab 03/22/25 Rx Allergies Allergy/AdvReac Type Severity Reaction Status Date / Time atorvastatin calcium AdvReac JOINT PAIN Verified 03/29/25 20:47 [From Lipitor] clindamycin AdvReac JOINT PAIN Verified 03/29/25 20:47 Physical Exam Vitals: Vital Signs Temp Pulse Resp BP Pulse Ox 03/30/25 06:42 67 16 115/58 97 03/30/25 04:15 65 16 120/56 97 03/30/25 02:05 68 18 136/72 97 03/29/25 23:20 79 19 146/84 98 03/29/25 21:54 71 18 136/73 98 03/29/25 20:42 98.3 F 80 18 161/82 98 Intake and Output 03/29/25 03/29/25 03/30/25 14:59 22:59 06:59 Other: Weight 62.142 kg Results CBC & Chem 7: 03/29/25 20:58 03/29/25 20:58 Labs: Abnormal Lab Results - Last 24 Hours (Table) 03/29/25 03/29/25 Range/Units 20:58 20:58 WBC 10.72 H (4.50-10.00) 10*3/uL RBC 3.90 L (4.40-5.60) 10*6/uL Hgb 11.7 L (13.0-17.0) g/dL Hct 33.7 L (39.6-50.0) % Immature Gran # 0.13 H (0.00-0.04) 10*3/uL Monocytes # 1.31 H (0.20-1.00) 10*3/uL Eosinophils # 0.01 L (0.04-0.35) 10*3/uL Chloride 109 H (98-107) mmol/L Carbon Dioxide 19 L (22-30) mmol/L BUN 32 H (9-20) mg/dL Creatinine 1.52 H (0.66-1.25) mg/dL Assessment and Plan Assessment: 84 year old Male patient with history of stroke, hypertension, and hyperlipidemia presenting with atypical chest pain following excessive physical activity. Atypical chest pain - All cardiac workup including EKG, blood work, and heart enzymes returned normal. Given patient's age, gender, and cardiac risk factors, routine cardiac evaluation is indicated despite normal initial testing. Plan includes cardiology consultation in the morning with possible stress testing either during admission or as outpatient follow-up. ASA 81 mg daily resume statin cardiology consult Hypertension - Blood pressure appears well controlled. Continue current antihypertensive medication. resume amlodipine Hyperlipidemia - Continue current cholesterol medication. CKD III renal function showing BUN 32, Cr 1.5 otherwise electrolytes unremarka ble Na 139 K 4.3, monitor urine output Patient will be observed overnight with cardiology evaluation in morning to determine need for further cardiac testing or discharge home. DVT PPX heparin sc tid 5000 units blood work review WBC 10 , Hgb 11.7 mild anemia otherwise unremarkable check Lipid panel , A1c
[2025-03-30] MEDS: PANTOPRAZOLE 40 MG TABLET PO SCH (08:37)
[2025-03-30] MEDS: amLODIPine 5 MG TAB PO SCH (08:37)
[2025-03-30] MEDS: HEPARIN SODIUM,PORCINE 5,000 UNIT/ML 1 ML VIAL SQ SCH (08:38)
[2025-03-30 12:47] VITALS: BP 120/80; PULSE 72; RESP 18; TEMP 97.3
[2025-03-30 12:55] LABS: Cholesterol 113.00 mg/dL (0.00-200.00); HDL Cholesterol 54.10 mg/dL (40.00-60.00); LDL Cholesterol,Calculated 47.8 mg/dL (0.0-131.0); Triglycerides 55.50 mg/dL (0.00-149.00); VLDL Calculation 11.10 mg/dL (5.00-40.00)
--- NOTE | 2025-03-30 13:39 | P.CRDCN ---
History of Present Illness Consult date: 03/30/25 History of present illness: HISTORY OF PRESENTING ILLNESS: Known to Dr. Sultana 84-year-old with history of hypertension and dyslipidemia. Prior history of stroke Presented to the hospital because of atypical chest pain. His symptoms description was atypical. He reports that he was moving heavy stuff in his basement. After moving the stop and he rested he started noticing some chest heaviness that lasted for 10 to 15 minutes. His got concerned and sent him to the ER. He denies any chest pain chest pressure at this time Home medications include aspirin, rosuvastatin 40 mg, amlodipine 5 mg twice daily .................................................... ................................................................................ .......... Pertient Vitals: 120/80, heart rate 72 Pertient Labs: Essentially WNL Hb 11.7, BUN 32, creatinine 1.5, troponin x 3 negative, A1c 5.4, LDL 47, TG 55, EKG: Normal sinus rhythm normal axis Pertient Imaging: Chest x-ray does not show signs of significant pulmonary congestion or consolidation ................... ................................................................................ ........................................... Prior cardiac testing: Last echo from August 2024 shows preserved LV size systolic function, mild biatrial dilatation, sclerotic aortic valve with moderate regurgitation, mild mitral regurgitation, mild tricuspid regurgitation .............................................. ................................................................................ ................ REVIEW OF SYSTEMS: 14 point review of system is negative except what is mentioned above in HPI. ....... ................................................................................ ....................................................... PHYSICAL EXAMINATION: Neck: Brisk carotid upstroke, no jugular venous distention. Lungs: Clear to auscultation. Heart: Regular rate and rhythm, S1-S2, mild diastolic murmur audible Abdomen: Soft nontender, positive bowel sounds. Extremities: No edema, intact distal pulses. Neuro: Alert, oritented, no focal deficits. Detailed neuro exam was not performed. ...... ................................................................................ ........................................................ ASSESSMENT: # Atypical chest pain, rule out of ACS # Moderate AI, mild MR # Prior history of musculoskeletal chest pain because of metastatic disease to sternum however denies any similar symptoms at this time. # Prior history of renal cancer with mets to lungs and sternum # Prior history of CVA # CKD PLAN: At this time patient is stable from cardiovascular standpoint Recommend outpatient follow-up for updated echocardiogram or stress test if none has been done in the office recently His blood pressure is optimized and heart rate is controlled Continue aspirin statin and amlodipine for prior history of CVA Juan Finley MD, 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 States he had a mild stroke in 2020 had R arm and leg weakness. Arthritis in knees, hips and thumbs. Pre-diabetic. Last Myocardial Infarction Date:: 2019 History of Any Multi-Drug Resistant Organisms: None Reported Past Surgical History: Heart Catheterization, Orthopedic Surgery Additional Past Surgical History / Comment(s): L nephrectomy 2015, R HAND 2ND DIGIT LOST TOP OF FINGER IN CRUSHING INJURY, EGDs, colonoscopy, bilateral cataract removals/lens implants. Past Anesthesia/Blood Transfusion Reactions: No Reported Reaction Additional Past Anesthesia/Blood Transfusion Reaction / Comment(s): No hx of blood transfusion Past Psychological History: Depression Smoking Status: Former smoker Past Alcohol Use History: Occasional Past Drug Use History: None Reported - Past Family History Father Family Medical History: Cancer, Hypertension, Myocardial Infarction ([place]) Additional Family Medical History / Comment(s): SKIN CANCER Mother Family Medical History: Cancer Additional Family Medical History / Comment(s): breast cancer - throat cancer Sister(s) Family Medical History: Cancer Additional Family Medical History / Comment(s): skin/breast and throat cancer Medications and Allergies Home Medications Medication Instructions Recorded Confirmed Type Tamsulosin HCl [Flomax] 0.4 mg PO HS 10/12/17 03/30/25 History amLODIPine [Norvasc] 5 mg PO BID 05/25/23 03/30/25 History Aspirin 81 mg PO HS 01/16/24 03/30/25 History Rosuvastatin Calcium [Crestor] 40 mg PO HS 09/08/24 03/30/25 History HYDROcodone/APAP 10-325MG [[place] 1 tab PO Q4HR PRN 10/02/24 03/30/25 History 10-325] Acetaminophen Tab [Tylenol] 1,000 mg PO TID PRN 03/20/25 03/30/25 History Brimonidine Tartrate/Timolol 1 drop BOTH EYES BID 03/20/25 03/30/25 History [Brimonidine-Timolol 0.2%-0.5%] Diclofenac Sodium Gel [Voltaren 1% 1 applic TOPICAL TID PRN 03/20/25 03/30/25 History Gel] Fluticasone Nasal [place] [Flonase 1 spray EA NOSTRIL HS PRN 03/20/25 03/30/25 History Nasal [place]] Lidocaine 4% Cream 1 applic TOPICAL BID PRN 03/20/25 03/30/25 History Suplena 1 can PO DAILY 03/20/25 03/30/25 History Pantoprazole [Protonix] 40 mg PO DAILY #30 tab 03/22/25 03/30/25 Rx predniSONE [Deltasone] 40 mg PO DAILY #30 tab 03/22/25 03/30/25 Rx Allergies Allergy/AdvReac Type Severity Reaction Status Date / Time atorvastatin calcium AdvReac JOINT PAIN Verified 03/29/25 20:47 [From Lipitor] clindamycin AdvReac JOINT PAIN Verified 03/29/25 20:47 Physical Exam Vitals: Vital Signs Temp Pulse Resp BP Pulse Ox 03/30/25 12:46 97.3 F L 72 18 120/80 99 03/30/25 12:00 62 24 148/98 03/30/25 08:35 98.3 F 77 16 123/59 98 03/30/25 06:42 67 16 115/58 97 03/30/25 04:15 65 16 120/56 97 03/30/25 02:05 68 18 136/72 97 03/29/25 23:20 79 19 146/84 98 03/29/25 21:54 71 18 136/73 98 03/29/25 20:42 98.3 F 80 18 161/82 98 Intake and Output 03/29/25 03/30/25 03/30/25 22:59 06:59 14:59 Other: Weight 62.142 kg Results 03/29/25 20:58 03/29/25 20:58 Cardiac Enzymes 03/29/25 03/29/25 03/30/25 Range/Units 20:58 20:58 03:29 AST 23 (17-59) U/L Troponin I <0.012 <0.012 (0.000-0.034) ng/mL 03/30/25 Range/Units 06:12 AST (17-59) U/L Troponin I <0.012 (0.000-0.034) ng/mL Coagulation 03/29/25 Range/Units 20:58 PT 11.0 (10.0-12.5) sec APTT 22.2 (22.0-30.0) sec Lipids 03/30/25 Range/Units 07:26 Triglycerides 55.50 (0.00-149.00) mg/dL Cholesterol 113.00 (0.00-200.00) mg/dL HDL Cholesterol 54.10 (40.00-60.00) mg/dL Cholesterol/HDL Ratio 2.09 Ratio CBC 03/29/25 Range/Units 20:58 WBC 10.72 H (4.50-10.00) 10*3/uL RBC 3.90 L (4.40-5.60) 10*6/uL Hgb 11.7 L (13.0-17.0) g/dL Hct 33.7 L (39.6-50.0) % Plt Count 432 (140-440) 10*3/uL Comprehensive Metabolic Panel 03/29/25 Range/Units 20:58 Sodium 139 (137-145) mmol/L Potassium 4.3 (3.5-5.1) mmol/L Chloride 109 H (98-107) mmol/L Carbon Dioxide 19 L (22-30) mmol/L BUN 32 H (9-20) mg/dL Creatinine 1.52 H (0.66-1.25) mg/dL Glucose 98 (74-99) mg/dL Calcium 8.9 (8.4-10.2) mg/dL AST 23 (17-59) U/L ALT 18 (4-49) U/L Alkaline Phosphatase 69 (38-126) U/L Total Protein 6.8 (6.3-8.2) g/dL Albumin 4.1 (3.5-5.0) g/dL Intake and Output 03/29/25 03/30/25 03/30/25 22:59 06:59 14:59 Other: Weight 62.142 kg 03/29/25 20:58 03/29/25 20:58
--- NOTE | 2025-03-30 16:02 | P.DS ---
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 Yesterday morning patient felt good and engaged in excessive household activities including working in garage, shopping, vacuuming, and mopping the kitchen - activities he typically does not perform. Mid-afternoon while resting in a chair, patient developed frontal chest pain. Pain was localized to front of chest with no radiation to shoulders, jaw, or other areas. Patient denied associated nausea, vomiting, sweating, dizziness, lightheadedness, coughing, or breathing difficulties. Pain was described as annoying but not severe enough to stop activities. Patient would not have sought medical attention on his own but came in at urging of others. In the ED, labs indicated mild normocytic anemia at 11.7, and nonelevated troponin. EKG performed in the ED was negative for acute SC. CXR showed no acute cardiopulmonary disease or process. The patient was given IV fluids and morphine along with his home aspirin and statin. Patient will likely need cardiac stress test. cardiology was consulted and they are okay with him following up outpatient for this. Understands the plan for discharge with close outpatient follow-up with car diology. Patient seen and examined at bedside. Vital signs reviewed and stable. Physical examination: Vital signs reviewed General: non toxic, no distress, appears at stated age, normal weight Derm: no unusual rashes/lesions, warm Head: atraumatic, normocephalic, symmetric Eyes: EOMI, anicteric sclera, pupils equal round reactive to light ENT: Nose and ears atraumatic Neck: No cervical lymphadenopathy, trachea midline, supple Mouth: no lip lesion, mucus membranes moist Cardiovascular: S1S2 reg, systolic murmur noted, positive dorsalis pedis pulse bilateral, no edema Lungs: CTA bilateral, no rhonchi, no rales, no accessory muscle use Abdominal: soft, nontender to palpation, no guarding Ext: muscle strength 5 out of 5 in all 4 extremities grossly, no gross muscle atrophy Neuro: CN II-XI grossly intact, no gross focal neuro deficits Psych: Alert, oriented to person, place, and time A total of greater than 30 minutes of time were spent preparing this complex discharge summary. Patient was discharged on 03/30/2025. Ugo Dunne MD PGY-1 TY Dictation was produced using [employer] dictation software. please excuse any grammatical, word or spelling errors. I saw and evaluated the patient during the rivera and critical portions of this encounter, and discussed the case in detail with the resident author of this note, I agree with the Assessment and Plan, and my changes, if any, are highlighted in blue. Patient Condition at Discharge: Fair Plan - Discharge Summary New Discharge Prescriptions: Continue Tamsulosin HCl [Flomax] 0.4 mg PO HS Aspirin 81 mg PO HS Rosuvastatin Calcium [Crestor] 40 mg PO HS HYDROcodone/APAP 10-325MG [[place] 10-325] 1 tab PO Q4HR PRN PRN Reason: Pain Lidocaine 4% Cream 1 applic TOPICAL BID PRN PRN Reason: Pain Acetaminophen Tab [Tylenol] 1,000 mg PO TID PRN PRN Reason: Pain Diclofenac Sodium Gel [Voltaren 1% Gel] 1 applic TOPICAL TID PRN PRN Reason: THUMB PAIN Fluticasone Nasal [place] [Flonase Nasal [place]] 1 spray EA NOSTRIL HS PRN PRN Reason: Congestion Pantoprazole [Protonix] 40 mg PO DAILY #30 tab amLODIPine [Norvasc] 5 mg PO BID Brimonidine Tartrate/Timolol [Brimonidine-Timolol 0.2%-0.5%] 1 drop BOTH EYES BID [place] 1 can PO DAILY predniSONE [Deltasone] 40 mg PO DAILY #30 tab Discharge Medication List Tamsulosin HCl [Flomax] 0.4 mg PO HS 10/12/17 [History] amLODIPine [Norvasc] 5 mg PO BID 05/25/23 [History] Aspirin 81 mg PO HS 01/16/24 [History] Rosuvastatin Calcium [Crestor] 40 mg PO HS 09/08/24 [History] HYDROcodone/APAP 10-325MG [[place] 10-325] 1 tab PO Q4HR PRN 10/02/24 [History] Acetaminophen Tab [Tylenol] 1,000 mg PO TID PRN 03/20/25 [History] Brimonidine Tartrate/Timolol [Brimonidine-Timolol 0.2%-0.5%] 1 drop BOTH EYES BID 03/20/25 [History] Diclofenac Sodium Gel [Voltaren 1% Gel] 1 applic TOPICAL TID PRN 03/20/25 [History] Fluticasone Nasal [place] [Flonase Nasal [place]] 1 spray EA NOSTRIL HS PRN 03/20/25 [History] Lidocaine 4% Cream 1 applic TOPICAL BID PRN 03/20/25 [History] [place] 1 can PO DAILY 03/20/25 [History] Pantoprazole [Protonix] 40 mg PO DAILY #30 tab 03/22/25 [Rx] predniSONE [Deltasone] 40 mg PO DAILY #30 tab 03/22/25 [Rx] Follow up Appointment(s)/Referral(s): Juan Finley MD [Medical Doctor] - 1 Week Javi Sultana MD [STAFF PHYSICIAN] - 1 Week Derrell Cordova DO [Primary Care Provider] - 1-2 days Patient Instructions/Handouts: Angina (DC) Discharge Disposition: HOME SELF-CARE
[2025-03-30] MEDS ORDERED: PATIENT'S OWN (Rosuvastatin Calcium [Crestor] 40 MG Tablet) PO SCH (21:00)
[2025-03-30] MEDS ORDERED: ASPIRIN 81 MG PO SCH (21:00)
[2025-03-30] MEDS ORDERED: TAMSULOSIN 0.4 MG CAP.ER.24H PO SCH (21:00)
== END 2025-03-30 12:35 | disposition home or self-care (01) ==
LOC: EC 20:40 → 6NMEDSUR 03-30 00:21
PROVIDERS: ADMIT Internal Medicine; ATTEND Internal Medicine
DX: R07.89 Other chest pain (principal); N17.9 Acute kidney failure, unspecified; D64.9 Anemia, unspecified; K21.9 Gastro-esophageal reflux disease without esophagitis; I12.9 Hypertensive chronic kidney disease with stage 1 through stage 4 chronic kidney disease, or unspecified chronic kidney disease; N18.30 Chronic kidney disease, stage 3 unspecified; I25.2 Old myocardial infarction; I35.1 Nonrheumatic aortic (valve) insufficiency; I34.0 Nonrheumatic mitral (valve) insufficiency; I25.10 Atherosclerotic heart disease of native coronary artery without angina pectoris; E78.5 Hyperlipidemia, unspecified; M19.90 Unspecified osteoarthritis, unspecified site; Z87.891 Personal history of nicotine dependence; Z85.528 Personal history of other malignant neoplasm of kidney; Z85.46 Personal history of malignant neoplasm of prostate; Z79.899 Other long term (current) drug therapy; Z79.82 Long term (current) use of aspirin; Z86.73 Personal history of transient ischemic attack (TIA), and cerebral infarction without residual deficits
CPT/HCPCS: 96372; 99285; 36415; 93005; 80061; 80053; 83735; 84484 ×2; 85025; 85610; 85730; 83036; 71046; G0378; J1644